=== PATIENT | female | born 1970 | race Caucasian/White ===

== ENCOUNTER 2017-01-30 16:54 | Emergency (ER) | payer OTHER ==
[~2017-01-30] VITALS: Ht 139.7 cm; Wt 54.4 kg
[~2017-01-30 16:54] MED LIST: ALEN70TA47 PO; CIPR500T78 PO; CLON1TAB PO; DIAZ-345 PO; DICL75TA2 PO; DICY10CA59 PO; DULO30CA48 PO; DULO60CA6 PO; HYDR1TAB PO; KETO10TA PO; MECL-124 PO; METR500T PO; NITR-65 PO; ONDA-42 SL; ONDA4TAB8 PO; TRAM-42 PO
--- OUTSIDE RECORDS SUMMARY | 2017-01-30 17:00 | XMS REPORT ---
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
--- OUTSIDE RECORDS SUMMARY | 2017-01-30 17:01 | XMS REPORT ---
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 Problem IBS (irritable bowel syndrome) K58.9 Active Problem Major depressive disorder, recurrent episode, moderate 296.32 Active Assessment Halie rash of groin B37.89 Active Problem Major depressive disorder, recurrent, moderate F33.1 Active Problem Antibiotic long-term use Z79.2 Active Medications Medication Code System Code Instructions Start Date End Date Status Dosage Dicloxacillin Sodium [facility] [address]-90 500 MG Orally 2 times a day Dec 08, 2014 1 capsule after meals Bentyl [facility] [address]-43 10 mg Dec 05, 2013 1 Capsule by Oral route 2 times per day Butenafine HCl [facility] [address]-49 1 % Externally Twice a day Jan 14, 2015 Feb 11, 2015 1 application to affected area Procedures Procedure Coding System Code Date Office Visit, Est Pt., Level 3 CPT-4 94125 Jan 14, 2015 Vital Signs Date/Time: Jan 14, 2015 Temperature 97.9 F Weight 126.4 lbs Height 55 in BMI 29.37 Index Blood Pressure Diastolic 68 mmHg Blood Pressure Systolic 116 mmHg Cardiac Monitoring Heart Rate 72 bpm Results No Known Results Summary Purpose eClinicalWorks Submission
--- OUTSIDE RECORDS SUMMARY | 2017-01-30 17:01 | XMS REPORT ---
Author Author LAWANDA SHAVER [facility] Address [address] [place] [address] Care Team Providers Care Family Educator Name Role Phone LAWANDA SHAVER Unavailable PROBLEMS Type Condition ICD9-CM Code [id number] Code Onset Dates Condition Status SNOMED Code Problem History of nephrectomy Z90.5 Active 313712863 Problem Irritable bowel syndrome without diarrhea K58.9 Active 50050757 Problem Depression F32.9 Active 52938398 Problem Vitamin D deficiency E55.9 Active 53786693 Problem Non-healing skin lesion of nose L98.9 Active 41622536 Problem Neck pain M54.2 Active 38413257 Problem Symptomatic premature menopause E28.310 Active 633662312 Problem Osteopenia M85.80 Active 564148334 Problem Abnormal finding on CT scan R93.8 Active 051303860 Problem Hearing loss, bilateral H91.93 Active 47429595 Problem Major depressive disorder, recurrent, moderate F33.1 Active 539171106 Problem Antibiotic long-term use Z79.2 Active 255507224 Problem IBS (irritable bowel syndrome) K58.9 Active 71466319 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 10358752 Problem Generalized anxiety disorder F41.1 Active 127879108 Problem Arthralgia M25.50 Active 62549519 ALLERGIES Substance Reaction Event Type Date Status Sulfamethoxazole-Trimethoprim Unknown Drug Allergy Mar, Active Percocet Unknown Drug Allergy Mar, Active SOCIAL HISTORY No smoking Hx information available PLAN OF CARE Activity Details Follow Up 6 Months, prn Reason:BH med VITAL SIGNS Height 55 in 2016-03-10 Weight 124 lbs 2016-03-10 Temperature 98.1 degrees Fahrenheit 2016-03-10 Heart Rate 80 bpm 2016-03-10 Respiratory Rate 16 2016-03-10 BMI 28.82 kg/m2 2016-03-10 Blood pressure systolic 120 mmHg 2016-03-10 Blood pressure diastolic 76 mmHg 2016-03-10 MEDICATIONS Medication Instructions Dosage Frequency Start Date End Date Duration Status Bentyl 10 mg oral bid prn 1 Capsule Active Clonazepam 1 MG Orally Once a day at hs prn 1 tablet 28 days Active Diclofenac Sodium CR 75 mg oral two times per day 1 tablet Active Vitamin D 2000 UNIT Orally Once a day 2 tablet 24h Active Fosamax 70 MG Orally weekly 1 tablet Mar, Active Duloxetine HCl 30 MG Orally daily 1 capsule 24h 30 day(s) Active RESULTS Name Result Date Reference Range VITAMIN D, 25-H 2016-03-10 Vitamin D, 25-Hydroxy 50.1 30.0-100.0 CMP 2016-03-10 Glucose, Serum 85 65-99 BUN 16 6-24 Creatinine, Serum 0.66 0.57-1.00 eGFR If NonAfricn Am 108 >59 eGFR If Africn Am 124 >59 BUN/Creatinine Ratio 24 9-23 Sodium, Serum 142 134-144 Potassium, Serum 4.4 3.5-5.2 Chloride, Serum 102 96-106 Carbon Dioxide, Total 25 18-29 Calcium, Serum 8.8 8.7-10.2 Protein, Total, Serum 6.5 6.0-8.5 Albumin, Serum 4.4 3.5-5.5 Globulin, Total 2.1 1.5-4.5 A/G Ratio 2.1 1.1-2.5 Bilirubin, Total 0.4 0.0-1.2 Alkaline Phosphatase, S 70 39-117 AST (SGOT) 25 0-40 ALT (SGPT) 31 0-32 PROCEDURES Procedure Date Ordered Related Diagnosis Body Site COMPREHEN METABOLIC PANEL Mar 10, 2016 ASSAY OF VITAMIN D Mar 10, 2016 VENIPUNCT, ROUTINE* Mar 10, 2016 Office Visit, Est Pt., Level 4 Mar 10, 2016 IMMUNIZATIONS No Known Immunizations
--- OUTSIDE RECORDS SUMMARY | 2017-01-30 17:01 | XMS REPORT ---
Author Author LAWANDA SHAVER [facility] Address [address] [place] [address] Care Team Providers Care Senior Process Engineer Name Role Phone LAWANDA SHAVER Unavailable PROBLEMS Type Condition ICD9-CM Code [id number] Code Onset Dates Condition Status SNOMED Code Problem Arthralgia M25.50 Active 63742687 Problem History of nephrectomy Z90.5 Active 192125689 Problem Neck pain M54.2 Active 80977868 Problem Osteopenia M85.80 Active 966751385 Problem Depression F32.9 Active 77620835 Problem Irritable bowel syndrome without diarrhea K58.9 Active 93664160 Problem Symptomatic premature menopause E28.310 Active 961923032 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 13334951 Problem Abnormal finding on CT scan R93.8 Active 941340323 Problem Antibiotic long-term use Z79.2 Active 704624052 Problem Major depressive disorder, recurrent, moderate F33.1 Active 786274592 Problem Generalized anxiety disorder F41.1 Active 608681519 Problem Hearing loss, bilateral H91.93 Active 10882668 Problem IBS (irritable bowel syndrome) K58.9 Active 13231833 ALLERGIES Unknown Allergies SOCIAL HISTORY No smoking Hx information available PLAN OF CARE VITAL SIGNS MEDICATIONS Medication Instructions Dosage Frequency Start Date End Date Duration Status Clonazepam 1 MG Orally Once a day at hs prn 1 tablet 28 days Active RESULTS No Results PROCEDURES No Known procedures IMMUNIZATIONS No Known Immunizations
--- OUTSIDE RECORDS SUMMARY | 2017-01-30 17:01 | XMS REPORT ---
Author Author LAWANDA SHAVER [facility] Address [address] [place] [address] Care Team Providers Care Dry Cleaning Attendant Name Role Phone LAWANDA SHAVER Unavailable PROBLEMS Type Condition ICD9-CM Code [id number] Code Onset Dates Condition Status SNOMED Code Problem Arthralgia M25.50 Active 27463977 Problem History of nephrectomy Z90.5 Active 914002275 Problem Neck pain M54.2 Active 21718930 Problem Osteopenia M85.80 Active 334402837 Problem Depression F32.9 Active 01098458 Problem Irritable bowel syndrome without diarrhea K58.9 Active 78293557 Problem Symptomatic premature menopause E28.310 Active 386529174 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 74853262 Problem Abnormal finding on CT scan R93.8 Active 928124549 Problem Antibiotic long-term use Z79.2 Active 188040391 Problem Major depressive disorder, recurrent, moderate F33.1 Active 909464022 Assessment Depression F32.9 Oct, Active 630101055 Problem Generalized anxiety disorder F41.1 Active 509316149 Problem Hearing loss, bilateral H91.93 Active 31162619 Problem IBS (irritable bowel syndrome) K58.9 Active 23717035 ALLERGIES Substance Reaction Event Type Date Status Sulfamethoxazole-Trimethoprim Unknown Drug Allergy Oct, Active Percocet Unknown Drug Allergy Oct, Active SOCIAL HISTORY No smoking Hx information available PLAN OF CARE VITAL SIGNS Height 55 in 2015-10-14 Weight 117.5 lbs 2015-10-14 Heart Rate 74 bpm 2015-10-14 Respiratory Rate 18 2015-10-14 BMI 27.31 kg/m2 2015-10-14 Blood pressure systolic 118 mmHg 2015-10-14 Blood pressure diastolic 72 mmHg 2015-10-14 MEDICATIONS Medication Instructions Dosage Frequency Start Date End Date Duration Status Fosamax 70 MG Orally weekly 1 tablet Mar, Active Bentyl 10 mg oral bid prn 1 Capsule Active Diclofenac Sodium CR 75 mg oral two times per day 1 tablet Active Duloxetine HCl 30 MG Orally daily 1 capsule 24h Active Vitamin D 2000 UNIT Orally Once a day 2 tablet 24h Active Clonazepam 1 MG Orally Once a day at hs prn 1 tablet 28 days Active Duloxetine HCl 30 MG Orally daily 1 capsule 24h 30 day(s) Active RESULTS No Results PROCEDURES Procedure Date Ordered Related Diagnosis Body Site Office Visit, Est Pt., Level 4 Oct 14, 2015 IMMUNIZATIONS No Known Immunizations
--- OUTSIDE RECORDS SUMMARY | 2017-01-30 17:01 | XMS REPORT ---
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
--- OUTSIDE RECORDS SUMMARY | 2017-01-30 17:01 | XMS REPORT ---
Author Author LAWANDA SHAVER [facility] eClinicalWorks Address Unknown Phone Unavailable Care Team Providers Care Coffee Attendant Name Role Phone LAWANDA SHAVER CP Unavailable [...] bowel syndrome without diarrhea K58.9 Active Problem Antibiotic long-term use Z79.2 Active Problem Major depressive disorder, recurrent, moderate F33.1 Active Problem Generalized anxiety disorder F41.1 Active Medications No Known Medications Results No Known Results Summary Purpose eClinicalWorks Submission
--- OUTSIDE RECORDS SUMMARY | 2017-01-30 17:01 | XMS REPORT ---
Author LIBERTAD Ramos [facility] eClinicalWorks Address Unknown Phone Unavailable Care Team Providers Care Senior Hr Manager Name Role Phone LIBERTAD OROSCO CP Unavailable Allergies No Known Allergies Problems Problem Type Condition ICD-9 Code Onset Dates Condition Status Problem Unspecified breast screening V76.10 Active Problem Special screening examination, human papillomavirus [HPV] V73.81 Active Problem Screening for malignant neoplasm of the cervix V76.2 Active Problem Gonadal dysgenesis 758.6 Active Problem Routine general medical examination at health care facility V70.0 Active Problem Personal history of, nephrotic syndrome V13.03 Active Problem Abdominal pain, unspecified site 789.00 Active Problem Hormone replacement therapy (postmenopausal) V07.4 Active Problem Generalized anxiety disorder 300.02 Active Problem Major depressive disorder, recurrent episode, moderate 296.32 Active Assessment Unspecified breast screening V76.10 Active Problem Irritable bowel syndrome 564.1 Active Problem Routine gynecological examination V72.31 Active Medications No Known Medications Results No Known Results Summary Purpose eClinicalWorks Submission
--- OUTSIDE RECORDS SUMMARY | 2017-01-30 17:01 | XMS REPORT ---
Author Author LAWANDA SHAVER [facility] eClinicalWorks Address Unknown Phone Unavailable Care Team Providers Care Outsewer Name Role Phone LAWANDA SHAVER CP Unavailable [...] Problem Generalized anxiety disorder F41.1 Active Medications Medication Code System Code Instructions Start Date End Date Status Dosage Duloxetine HCl [facility] 47620840729 30 MG Orally daily 1 capsule Results No Known Results Summary Purpose eClinicalWorks Submission
--- OUTSIDE RECORDS SUMMARY | 2017-01-30 17:01 | XMS REPORT ---
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 Problem Abnormal finding on CT scan R93.8 Active Problem Depression F32.9 Active Problem History of nephrectomy Z90.5 Active Problem Neck pain M54.2 Active Problem Irritable bowel syndrome without diarrhea K58.9 Active Problem Symptomatic premature menopause E28.310 Active Assessment Generalized anxiety disorder F41.1 Active Assessment Depression F32.9 Active Problem Antibiotic long-term use Z79.2 Active Problem Major depressive disorder, recurrent, moderate F33.1 Active Medications No Known Medications Procedures Procedure Coding System Code Date Psych diagnostic evaluation, established patient CPT-4 29512 Feb 04, 2015 Results No Known Results Summary Purpose [employer] Submission
--- OUTSIDE RECORDS SUMMARY | 2017-01-30 17:01 | XMS REPORT ---
Author Author LAWANDA SHAVER [facility] eClinicalWorks Address Unknown Phone Unavailable Care Team Providers Care Diathermy Equipment Repairer Name Role Phone LAWANDA SHAVER Unavailable Allergies, Adverse Reactions, Alerts Substance Reaction Event Type Sulfamethoxazole-Trimethoprim Info Not Available Drug Allergy Percocet Info Not Available Drug Allergy Problems Problem Type Condition Code Onset Dates Condition Status Problem IBS (irritable bowel syndrome) K58.9 Active Problem Neck pain M54.2 Active Problem Arthralgia M25.50 Active Problem Depression F32.9 Active Assessment Arthralgia M25.50 Active 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 Assessment Osteopenia M85.80 Active Assessment Screening breast examination Z12.39 Active Problem Osteopenia M85.80 Active Problem Symptomatic premature menopause E28.310 Active Problem History of nephrectomy Z90.5 Active Problem Abnormal finding on CT scan R93.8 Active Problem Irritable bowel syndrome without diarrhea K58.9 Active Assessment Symptomatic premature menopause E28.310 Active Assessment Irritable bowel syndrome without diarrhea K58.9 Active Assessment Neck pain M54.2 Active Assessment History of nephrectomy Z90.5 Active Assessment Depression F32.9 Active Problem Antibiotic long-term use Z79.2 Active Assessment Abnormal finding on CT scan R93.8 Active Problem Major depressive disorder, recurrent, moderate F33.1 Active Assessment 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 Problem Generalized anxiety disorder F41.1 Active Medications Medication Code System Code Instructions Start Date End Date Status Dosage Vitamin D [facility] [address]-10 2000 UNIT Orally Once a day 2 tablet Fosamax [facility] [address]-51 70 MG Orally weekly Mar 11, 2015 1 tablet Duloxetine HCl [facility] [address]-38 30 MG Orally daily 1 capsule Clonazepam [facility] [address]-11 1 MG Orally Once a day at hs prn Sep 16, 2015 1 tablet Bentyl [facility] [address]-44 10 mg oral bid prn 1 Capsule Diclofenac Sodium CR ND 0 75 mg oral two times per day 1 tablet Duloxetine HCl [facility] 57304653248 30 MG Orally daily 1 capsule Procedures Procedure Coding System Code Date Office Visit, Est Pt., Level 4 CPT-4 76841 Sep 16, 2015 Vital Signs Date/Time: Sep 16, 2015 Cardiac Monitoring Heart Rate 72 bpm Weight 117.8 lbs Height 55 in BMI 27.38 Index Blood Pressure Diastolic 76 mmHg Blood Pressure Systolic 118 mmHg Results No Known Results Summary Purpose eClinicalWorks Submission
--- OUTSIDE RECORDS SUMMARY | 2017-01-30 17:01 | XMS REPORT ---
Author Author LAWANDA SHAVER [facility] eClinicalWorks Address Unknown Phone Unavailable Care Team Providers Care Sales Representative Printing Paper Name Role Phone LAWANDA SHAVER CP Unavailable [...] Instructions Start Date End Date Status Dosage Clonazepam [facility] [address]-02 1 MG Orally Once a day at hs prn 1 tablet Results No Known Results Summary Purpose eClinicalWorks Submission
--- OUTSIDE RECORDS SUMMARY | 2017-01-30 17:01 | XMS REPORT ---
Author Author LAWANDA SHAVER [facility] eClinicalWorks Address Unknown Phone Unavailable Care Team Providers Care It Associate Name Role Phone LAWANDA SHAVER CP Unavailable [...] Instructions Start Date End Date Status Dosage Cholecalciferol [facility] [address]70 UNIT Orally two times per week for 8 weeks Feb 09, 2015 1 capsule Results No Known Results Summary Purpose eClinicalWorks Submission
--- OUTSIDE RECORDS SUMMARY | 2017-01-30 17:02 | XMS REPORT ---
Author Author LAWANDA SHAVER [facility] eClinicalWorks Address Unknown Phone Unavailable Care Team Providers Care Contractor Broomcorn Threshing Name Role Phone LAWANDA SHAVER CP Unavailable [...]
--- OUTSIDE RECORDS SUMMARY | 2017-01-30 17:02 | XMS REPORT ---
Author Author LAWANDA SHAVER [facility] Address [address] [place] [address] Care Team Providers Care Supervisor Fabrication Department Name Role Phone LAWANDA SHAVER Unavailable PROBLEMS Type Condition ICD9-CM Code [id number] Code Onset Dates Condition Status SNOMED Code Problem History of nephrectomy Z90.5 Active 365427839 Problem Irritable bowel syndrome without diarrhea K58.9 Active 07915856 Problem Depression F32.9 Active 96296303 Problem Vitamin D deficiency E55.9 Active 70659509 Problem Non-healing skin lesion of nose L98.9 Active 32870147 Problem Neck pain M54.2 Active 35610845 Problem Symptomatic premature menopause E28.310 Active 144867461 Problem Osteopenia M85.80 Active 066905308 Problem Abnormal finding on CT scan R93.8 Active 608310843 Problem Hearing loss, bilateral H91.93 Active 25842642 Problem Major depressive disorder, recurrent, moderate F33.1 Active 243221010 Problem Antibiotic long-term use Z79.2 Active 786434376 Problem IBS (irritable bowel syndrome) K58.9 Active 20616906 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 60983110 Problem Generalized anxiety disorder F41.1 Active 377930890 Problem Arthralgia M25.50 Active 55955102 ALLERGIES No Information SOCIAL HISTORY Never Assessed PLAN OF CARE VITAL SIGNS MEDICATIONS Medication Instructions Dosage Frequency Start Date End Date Duration Status Clonazepam 1 MG Orally Once a day at hs prn 1 tablet 28 days Active RESULTS No Results PROCEDURES No Known procedures IMMUNIZATIONS No Known Immunizations MEDICAL (GENERAL) HISTORY Type Description Date Medical History Turners syndrome Medical History irritable bowel syndrome Medical History Personal history of, nephrotic syndrome Medical History Hormone replacement therapy (postmenopausal) Medical History noted a 1.6cm nodule in terminal ilieum on ct similar to 12-20- sched for recheck Medical History moderate arthritis LS 2014 Medical History Vitamin D Deficiency Medical History Endoscopy with Dr. Flaherty Surgical History hernia repair, hiatal Surgical History cholecystectomy Surgical History tonsillectomy Surgical History appendectomy Surgical History Kidney surgery, right kidney removed 06/1996 Surgical History Otolaryngologic surgery tubes in ears
--- OUTSIDE RECORDS SUMMARY | 2017-01-30 17:02 | XMS REPORT ---
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 Assessment Depression F32.9 Active Assessment Irritable bowel syndrome without diarrhea K58.9 Active Problem Antibiotic long-term use Z79.2 Active Assessment Abnormal finding on CT scan R93.8 Active Problem Major depressive disorder, recurrent, moderate F33.1 Active Medications Medication Code System Code Instructions Start Date End Date Status Dosage Duloxetine HCl [facility] [address]-81 30 MG Orally daily Feb 04, 2015 1 capsule Bentyl [facility] [address]-40 10 mg oral bid prn Dec 05, 2013 1 Capsule Procedures Procedure Coding System Code Date ASSAY OF VITAMIN D CPT-4 18917 Feb 04, 2015 ASSAY THYROID STIM HORMONE CPT-4 10158 Feb 04, 2015 COMPREHEN METABOLIC PANEL CPT-4 59647 Feb 04, 2015 Office Visit, Est Pt., Level 5 CPT-4 99612 Feb 04, 2015 ANTINUCLEAR ANTIBODIES CPT-4 63915 Feb 04, 2015 VENIPUNCT, ROUTINE* CPT-4 86834 Feb 04, 2015 RHEUMATOID FACTOR, QUANT CPT-4 22257 Feb 04, 2015 X-RAY EXAM OF NECK SPINE CPT-4 69105 Feb 04, 2015 C-REACTIVE PROTEIN CPT-4 54736 Feb 04, 2015 RBC SED RATE, NONAUTOMATED CPT-4 94133 Feb 04, 2015 Vital Signs Date/Time: Feb 04, 2015 Temperature 98.6 F Weight 125.6 lbs Height 55 in BMI 29.19 Index Blood Pressure Diastolic 72 mmHg Blood Pressure Systolic 120 mmHg Cardiac Monitoring Heart Rate 72 bpm Results Name Result Date Reference Range Unit Abnormality Flag ROUTINE VENIPUNCTURE Summary Purpose eClinicalWorks Submission
--- OUTSIDE RECORDS SUMMARY | 2017-01-30 17:02 | XMS REPORT | Continuity of Care Document ---
Author Author [facility] Address Unknown Phone Unavailable Allergies Active Description Code Type Severity Reaction Onset Reported/Identified Relationship to Patient Clinical Status Yes acetaminophen [id number] Drug Allergy Mild N/V 11/05/2012 Yes oxycodone HCl [id number] Drug Allergy Mild N/V 11/05/2012 Yes Sulfa (Sulfonamide Antibiotics) [id number] Drug Allergy Mild RASH 2012 Medications There is no data. Problems Date Dx Coded Attending Type Code Diagnosis Diagnosed By 04/14/2010 054.9 HERPES SIMPLEX WITHOUT COMPLICATION 04/14/2010 LIBERTAD OROSCO DO 054.9 HERPES SIMPLEX WITHOUT COMPLICATION 04/14/2010 CANDELARIO ARGUETA APRN R 054.9 HERPES SIMPLEX WITHOUT COMPLICATION 04/14/2010 ARTHUR ARGUETA APRNINA R 054.9 HERPES SIMPLEX WITHOUT COMPLICATION 04/14/2010 ARTHUR ARGUETA APRNINA R 054.9 HERPES SIMPLEX WITHOUT COMPLICATION 04/14/2010 LIBERTAD OROSCO DO 054.9 HERPES SIMPLEX WITHOUT COMPLICATION 04/17/2010 684 IMPETIGO 04/17/2010 LIBERTAD OROSCO DO 684 IMPETIGO 04/17/2010 ARTHUR ARGUETA APRNINA R 684 IMPETIGO 04/17/2010 ARTHUR ARGUETA APRNINA R 684 IMPETIGO 04/17/2010 ARTHUR ARGUETA APRNINA R 684 IMPETIGO 04/17/2010 LIBERTAD OROSCO DO 684 IMPETIGO 05/23/2012 296.32 MO DEPRESSIVE RECURRENT MODERATE 05/23/2012 300.02 AN GEN ANXIETY 05/23/2012 LIBERTAD OROSCO DO 296.32 MO DEPRESSIVE RECURRENT MODERATE 05/23/2012 LIBERTAD OROSCO DO 300.02 AN GEN ANXIETY 05/23/2012 ARTHUR ARGUETA APRNINA R 296.32 MO DEPRESSIVE RECURRENT MODERATE 05/23/2012 CANDELARIO ARGUETA APRN R 300.02 AN GEN ANXIETY 05/23/2012 CANDELARIO ARGUETA APRN R 296.32 MO DEPRESSIVE RECURRENT MODERATE 05/23/2012 ARTHUR ARGUETA APRNINA R 300.02 AN GEN ANXIETY 05/23/2012 CANDELARIO ARGUETA APRN R 296.32 MO DEPRESSIVE RECURRENT MODERATE 05/23/2012 ARTHUR ARGUETA APRNINA R 300.02 AN GEN ANXIETY 05/23/2012 LIBERTAD OROSCO DO K 296.32 MO DEPRESSIVE RECURRENT MODERATE 05/23/2012 DEBI OROSCO DOA K 300.02 AN GEN ANXIETY 09/21/2012 ANA LUISA ARANGOLIBERTAD K 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 09/21/2012 ANA LUISA ARANGODEBIA K V13.03 PERSONAL HISTORY OF NEPHROTIC SYNDROME 09/21/2012 OROSCO DEBIA K V70.0 EXAM - ROUTINE H&P 09/21/2012 CANDELARIO ARGUETA APRN R 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 09/21/2012 CANDELARIO ARGUETA APRN R V13.03 PERSONAL HISTORY OF NEPHROTIC SYNDROME 09/21/2012 CANDELARIO ARGUETA APRN R V70.0 EXAM - ROUTINE H&P 09/21/2012 CANDELARIO ARGUETA APRN R 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 09/21/2012 ARTHUR ARGUETA APRNINA R V13.03 PERSONAL HISTORY OF NEPHROTIC SYNDROME 09/21/2012 ARTHUR ARGUETA APRNINA R V70.0 EXAM - ROUTINE H&P 09/21/2012 CANDELARIO ARGUETA APRN R 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 09/21/2012 ARTHUR ARGUETA APRNINA R V13.03 PERSONAL HISTORY OF NEPHROTIC SYNDROME 09/21/2012 ARTHUR ARGUETA APRNINA R V70.0 EXAM - ROUTINE H&P 09/21/2012 LIBERTAD OROSCO DO K 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04 ABDOMINAL PAIN, LEFT LOWER QUADRANT 10/30/2013 ELLIE BILLET BED OPERATOR, CANDELARIO R 789.00 ABDOMINAL PAIN UNSPECIFIED SITE 10/30/2013 ELLIE BILLET BED OPERATOR, CANDELARIO R 789.00 ABDOMINAL PAIN UNSPECIFIED SITE 10/30/2013 ELLIE CALDWELL, CANDELARIO R 789.00 ABDOMINAL PAIN UNSPECIFIED SITE 10/30/2013 LIBERTAD OROSCO DO K 789.00 ABDOMINAL PAIN UNSPECIFIED SITE 12/05/2013 ELLIE CALDWELL, CANDELARIO R 564.1 IRRITABLE BOWEL SYNDROME 12/05/2013 ARTHUR ARGUETA APRNINA R 564.1 IRRITABLE BOWEL SYNDROME 12/05/2013 LIBERTAD OROSCO DO 564.1 IRRITABLE BOWEL SYNDROME 12/22/2013 STACY CERRATO BILLET BED OPERATOR Ot 558.9 NONINF GASTROENTERIT NEC 12/22/2013 STACY CERRATO BILLET BED OPERATOR Ot 789.04 ABDOMINAL PAIN, LEFT LOWER QUADRANT 01/28/2014 OPAL DAVIS MD Ot 455.0 INT HEMORRHOID W/O COMPL 01/28/2014 OPAL DAVIS MD Ot 455.3 EXT HEMORRHOID W/O COMPL 01/28/2014 OPAL DAVIS MD Ot 787.99 OTHER GI SYSTEM SYMPTOMS 03/04/2014 LIBERTAD OROSCO DO V07.4 HORMONE REPLACEMENT THERAPY (POSTMENOPAUSAL) 03/04/2014 LIBERTAD OROSCO DO V72.31 FIRST DYER EXAM, ROUTINE 03/04/2014 LIBERTAD OROSCO DO V72.62 LAB SCREENING- GENERAL PHYSICAL 03/04/2014 LIBERTAD OROSCO DO V73.81 HPV SCREENING 03/04/2014 LIBERTAD OROSCO DO V76.10 BREAST CANCER SCREENING 03/04/2014 LIBERTAD OROSCO DO V76.2 CERVICAL CANCER SCREENING (PAP SMEAR) 10/31/2014 LIBERTAD OROSCO DO Ot V76.12 12/26/2014 OPAL DAVIS MD Ot V72.84 12/26/2014 LIBERTAD OROSCO DO Ot V76.12 12/26/2014 ANNITA SPENCER DO Ot K43.9 VENTRAL HERNIA WITHOUT OBSTRUCTION OR GA 12/26/2014 ANNITA SPENCER DO Ot R10.32 LEFT LOWER QUADRANT PAIN 12/26/2014 ANNITA SPENCER DO Ot R93.5 ABN FINDINGS ON DX IMAGING OF ABD REGION 12/26/2014 ANNITA SPENCER DO Ot Z90.49 ACQUIRED ABSENCE OF OTHER SPECIFIED PART 12/26/2014 ANNITA SPENCER DO Ot Z90.5 ACQUIRED ABSENCE OF KIDNEY 03/11/2015 Ot E28.310 03/11/2015 Ot M85.80 03/11/2015 Ot Q96.9 03/27/2015 Ot E28.310 03/27/2015 Ot M85.80 03/27/2015 Ot Q96.9 04/01/2015 Ot E28.310 04/01/2015 Ot M85.80 04/01/2015 Ot Q96.9 06/20/2015 TUCKER GRANADOS, GALILEO Velasquez Ot K57.90 DVRTCLOS OF INTEST, PART UNSP, W/O PERF 06/20/2015 GALILEO CEBALLOS MD Ot R10.32 LEFT LOWER QUADRANT PAIN 06/20/2015 TUCKER GRANADOS, GALILEO Velasquez Ot Z90.5 ACQUIRED ABSENCE OF KIDNEY 06/22/2015 TUCKER GRANADOS, GALILEO Velasquez Ot K57.90 DVRTCLOS OF INTEST, PART UNSP, W/O PERF 06/22/2015 GALILEO CEBALLOS MD Ot R10.32 LEFT LOWER QUADRANT PAIN 06/22/2015 TUCKER GRANADOS, GALILEO Velasquez Ot Z90.5 ACQUIRED ABSENCE OF KIDNEY 07/17/2015 GALILEO CEBALLOS MD Ot K57.90 DVRTCLOS OF INTEST, PART UNSP, W/O PERF 07/17/2015 TUCKER GRANADOS, GALILEO Velasquez Ot R10.32 LEFT LOWER QUADRANT PAIN 07/17/2015 TUCKER GRANADOS, GALILEO Velasquez Ot Z90.5 ACQUIRED ABSENCE OF KIDNEY 10/27/[address] SUPERVISOR Ot Z12.31 ENCNTR SCREEN MAMMOGRAM FOR MALIGNANT NE 11/13/[address] SUPERVISOR Ot Z12.31 ENCNTR SCREEN MAMMOGRAM FOR MALIGNANT NE 12/09/2016 OPAL DAVIS MD Ot V72.84 EXAM PRE-OPERATIVE NOS 12/09/2016 OROSCO DO, LIBERTAD K Ot V76.12 OTH SCREEN MAMMO-MALIGN NEOPLASM OF JORDAN 12/09/2016 Ot E28.310 SYMPTOMATIC PREMATURE MENOPAUSE 12/09/2016 Ot M85.80 OTH DISRD OF BONE DENSITY AND STRUCTURE, 12/09/2016 Ot 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, UNSPECIFIED 12/09/[address] OF [address] SUPERVISOR Ot Z12.31 ENCNTR SCREEN MAMMOGRAM FOR MALIGNANT NE 12/09/2016 JOHANNA DOURMILAA K Ot F32.9 MAJOR DEPRESSIVE DISORDER, SINGLE EPISOD 12/09/2016 JOHANNA DO, ANNITA K Ot F41.9 ANXIETY DISORDER, UNSPECIFIED 12/09/2016 JOHANNA DO, ANNITA K Ot N39.0 URINARY TRACT INFECTION, SITE NOT SPECIF 12/09/2016 JOHANNA DO, ANNITA K Ot R11.0 NAUSEA 12/09/2016 JOHANNA DO ANNITA K Ot Z87.19 PERSONAL HISTORY OF OTHER DISEASES OF TH 12/09/2016 JOHANNAURMILA Mathew DOA K Ot Z87.442 PERSONAL HISTORY OF URINARY CALCULI 12/09/2016 JOHANNA DO ANNITA K Ot Z90.49 ACQUIRED ABSENCE OF OTHER SPECIFIED PART 12/09/2016 JOHANNA DO, ANNITA K Ot Z90.5 ACQUIRED ABSENCE OF KIDNEY 12/09/2016 JOHANNA DO, ANNITA K Ot Z90.89 ACQUIRED ABSENCE OF OTHER ORGANS 12/09/2016 RYAN GRANADOS, OPAL Ot V72.84 EXAM PRE-OPERATIVE NOS 12/09/2016 OROSCO LIBERTAD ARANGO Iveth Ot V76.12 OTH SCREEN MAMMO-MALIGN NEOPLASM OF JORDAN 12/09/2016 Ot E28.310 SYMPTOMATIC PREMATURE MENOPAUSE 12/09/2016 Ot M85.80 OTH DISRD OF BONE DENSITY AND STRUCTURE, 12/09/2016 Ot 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, UNSPECIFIED 12/09/[address] OF [address] SUPERVISOR Ot Z12.31 ENCNTR SCREEN MAMMOGRAM FOR MALIGNANT NE 12/12/2016 JOHANNA DO, ANNITA K Ot F32.9 MAJOR DEPRESSIVE DISORDER, SINGLE EPISOD 12/12/2016 JOHANNA DO, ANNITA K Ot F41.9 ANXIETY DISORDER, UNSPECIFIED 12/12/2016 JOHANNA DO, ANNITA K Ot N39.0 URINARY TRACT INFECTION, SITE NOT SPECIF 12/12/2016 JOHANNA DO, ANNITA K Ot R11.0 NAUSEA 12/12/2016 ANNITA SPENCER DO Ot Z87.19 PERSONAL HISTORY OF OTHER DISEASES OF TH 12/12/2016 ANNITA SPENCER DO Ot Z87.442 PERSONAL HISTORY OF URINARY CALCULI 12/12/2016 ANNITA SPENCER DO Ot Z90.49 ACQUIRED ABSENCE OF OTHER SPECIFIED PART 12/12/2016 ANNITA SPENCER DO Ot Z90.5 ACQUIRED ABSENCE OF KIDNEY 12/12/2016 ANNITA SPENCER DO Ot Z90.89 ACQUIRED ABSENCE OF OTHER ORGANS 12/27/2016 OPAL DAVIS MD Ot V72.84 EXAM PRE-OPERATIVE NOS 12/27/2016 LIBERTAD OROSCO DO Ot V76.12 OTH SCREEN MAMMO-MALIGN NEOPLASM OF JORDAN 12/27/2016 Ot E28.310 SYMPTOMATIC PREMATURE MENOPAUSE 12/27/2016 Ot M85.80 OTH DISRD OF BONE DENSITY AND STRUCTURE, 12/27/2016 Ot 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, UNSPECIFIED 12/27/2016 LAWANDA SHAVER Ot Z12.31 ENCNTR SCREEN MAMMOGRAM FOR MALIGNANT NE Procedures Code Description [place] [address] ROUTINE VENIPUNCTURE 09/21/2012 79351 CBC 09/21/2012 30141 LIPID PANEL 09/21/2012 10016 CMP 09/21/2012 2514389 GFR CALC (RESULT ONLY) 09/21/2012 30728 TSH 09/21/2012 29983 T4 FREE 09/21/2012 Results Test Result Range Complete urinalysis with reflex to culture - 12/09/16 04:54 Urine color determination YELLOW NRG Urine clarity determination CLEAR NRG Urine pH measurement by test strip 6 5-9 Specific gravity of urine by test strip 1.020 1.016- 1.022 Urine protein assay by test strip, semi-quantitative NEGATIVE NEGATIVE Urine glucose detection by automated test strip NEGATIVE NEGATIVE Erythrocytes detection in urine sediment by light microscopy NEGATIVE NEGATIVE Urine ketones detection by automated test strip NEGATIVE NEGATIVE Urine nitrite detection by test strip NEGATIVE NEGATIVE Urine total bilirubin detection by test strip NEGATIVE NEGATIVE Urine urobilinogen measurement by automated test strip (mass/volume) NORMAL NORMAL Urine leukocyte esterase detection by dipstick 2+ NEGATIVE Automated urine sediment erythrocyte count by microscopy (number/high power field) NONE NRG Automated urine sediment leukocyte count by microscopy (number/high power field ) [HPF] NRG Bacteria detection in urine sediment by light microscopy NEGATIVE NRG Squamous epithelial cells detection in urine sediment by light microscopy 10-25 NRG Crystals detection in urine sediment by light microscopy NONE NRG Casts detection in urine sediment by light microscopy NONE NRG Mucus detection in urine sediment by light microscopy SMALL NRG Complete urinalysis with reflex to culture NO NRG Complete blood count (CBC) with automated white blood cell (WBC) differential - 12/09/16 05:00 Blood leukocytes automated count (number/volume) 10.3 10*3/uL 4.3-11.0 Blood erythrocytes automated count (number/volume) 4.76 10*6/uL 4.35-5.85 Venous blood hemoglobin measurement (mass/volume) 14.7 g/dL 11.5-16.0 Blood hematocrit (volume fraction) 42 % 35-52 Automated erythrocyte mean corpuscular volume 87 [foz_us] 80-99 Automated erythrocyte mean corpuscular hemoglobin (mass per erythrocyte) 31 pg 25-34 Automated erythrocyte mean corpuscular hemoglobin concentration measurement ( mass/volume) 35 g/dL 32-36 Automated erythrocyte distribution width ratio 12.5 % 10.0-14.5 Automated blood platelet count (count/volume) 197 10*3/uL 130-400 Automated blood platelet mean volume measurement 10.0 [foz_us] 7.4-10.4 Automated blood neutrophils/100 leukocytes 89 % 42-75 Automated blood lymphocytes/100 leukocytes 7 % 12-44 Blood monocytes/100 leukocytes 3 % 0-12 Automated blood eosinophils/100 leukocytes 0 % 0-10 Automated blood basophils/100 leukocytes 0 % 0-10 Blood neutrophils automated count (number/volume) 9.2 10*3 1.8-7.8 Blood lymphocytes automated count (number/volume) 0.7 10*3 1.0-4.0 Blood monocytes automated count (number/volume) 0.4 10*3 0.0-1.0 Automated eosinophil count 0.0 10*3/uL 0.0-0.3 Automated blood basophil count (count/volume) 0.0 10*3/uL 0.0-0.1 Comprehensive metabolic panel - 12/09/16 05:00 Serum or plasma sodium measurement (moles/volume) 141 mmol/L 135-145 Serum or plasma potassium measurement (moles/volume) 4.1 mmol/L 3.6-5.0 Serum or plasma chloride measurement (moles/volume) 105 mmol/L 98-107 Carbon dioxide 23 mmol/L 21-32 Serum or plasma anion gap determination (moles/volume) 13 mmol/L 5-14 Serum or plasma urea nitrogen measurement (mass/volume) 18 mg/dL 7-18 Serum or plasma creatinine measurement (mass/volume) 0.76 mg/dL 0.60-1.30 Serum or plasma urea nitrogen/creatinine mass ratio 24 NRG Serum or plasma creatinine measurement with calculation of estimated glomerular filtration rate > NRG Serum or plasma glucose measurement (mass/volume) 123 mg/dL 70-105 Serum or plasma calcium measurement (mass/volume) 9.9 mg/dL 8.5-10.1 Serum or plasma total bilirubin measurement (mass/volume) 0.5 mg/dL 0.1-1.0 Serum or plasma alkaline phosphatase measurement (enzymatic activity/volume) 76 U/L 40-136 Serum or plasma aspartate aminotransferase measurement (enzymatic activity/ volume) 21 U/L 5-34 Serum or plasma alanine aminotransferase measurement (enzymatic activity/volume ) 40 U/L 0-55 Serum or plasma protein measurement (mass/volume) 7.1 g/dL 6.4-8.2 Serum or plasma albumin measurement (mass/volume) 4.3 g/dL 3.2-4.5 Serum or plasma amylase measurement (enzymatic activity/volume) - 12/09/16 05: 00 Serum or plasma amylase measurement (enzymatic activity/volume) 120 U/L 25-125 Lipase - 12/09/16 05:00 Lipase 32 U/L 8-78 Encounters ACCT No. Visit Date/Time Discharge Status Pt. Type Provider Facility Loc./Unit Complaint [id number] 03/05/2014 08:11:00 03/05/2014 23:59:59 CLS Outpatient LIBERTAD OROSCO DO [id number] 01/07/2014 10:03:00 01/07/2014 23:59:59 CLS Outpatient CANDELARIO ARGUETA APRN [id number] 12/05/2013 09:07:00 12/05/2013 23:59:59 CLS Outpatient CANDELARIO ARGUETA APRN [id number] 10/30/2013 13:49:00 10/30/2013 23:59:59 CLS Outpatient CANDELARIO ARGUETA APRN [id number] 09/21/2012 10:50:00 09/21/2012 23:59:59 CLS Outpatient LIBERTAD OROSCO DO [id number] 05/23/2012 10:43:00 Document Registration [id number] 12/09/2016 04:37:00 12/09/2016 07:37:00 DIS Emergency JOHANNAANNITA Mathew DO [facility] ER LEFT SIDE PAIN,NAUSEA [id number] 10/26/2015 07:07:00 10/26/2015 23:59:59 CLS Outpatient LAWANDA SHAVER RIGHT OF WAY SUPERVISOR [facility] RAD SCREENING [id number] 06/20/2015 08:24:00 06/20/2015 11:01:00 DIS Emergency GALILEO CEBALLOS MD [facility] ER NAUSEA,VOMITING,L SIDE PAIN [id number] 12/26/2014 02:35:00 12/26/2014 05:29:00 DIS Emergency ANNITA SPENCER DO [facility] ER LEFT SIDE HURTS [id number] 10/22/2014 10:14:00 10/22/2014 23:59:59 CLS Outpatient LIBERTAD OROSCO DO [facility] RAD SCREENING [id number] 01/28/2014 09:12:00 01/28/2014 12:30:00 DIS Outpatient OPAL DAVIS MD [facility] SDC ABD PAIN [id number] 01/24/2014 05:50:00 01/24/2014 23:59:59 CLS Outpatient OPAL DAVIS MD [facility] PREOP ABD PAIN [id number] 12/22/2013 11:15:00 12/22/2013 13:14:00 DIS Emergency STACY CERRATO APRN [facility] ER PAIN IN LOWER ABD ON L SIDE [id number] 10/29/2013 09:38:00 10/29/2013 11:54:00 DIS Emergency KIMBERLY WHITEHEAD MD [facility] ER LEFT SIDE PAIN/ CRAMPING [id number] 09/19/2013 10:40:00 09/19/2013 12:30:00 DIS Emergency SEVERO LAN DO [facility] ER DIZZINESS [id number] 04/03/2013 16:17:00 04/03/2013 19:12:00 DIS Emergency ANNITA SPENCER DO [facility] ER N/V/D [id number] 11/05/2012 16:53:00 11/05/2012 20:19:00 DIS Emergency KIMBERLY WHITEHEAD MD [facility] ER [id number] 02/26/2015 10:36:00 Document Registration
[2017-01-30] MEDS ORDERED: NS IV 500 ML 500 ML IV ONE (17:18)
[2017-01-30] MEDS ORDERED: ONDANSETRON 4 MG/2 ML (SDV) Z0FRAN IVP ONE (17:30)
--- NOTE | 2017-01-30 17:32 | ED GI ---
General Chief Complaint: Abdominal/GI Problems Stated Complaint: DIARRHEA,VOMITING,COUGH Nursing Triage Note: ARRIVED VIA AMB TO ROOM 09. COMPLAINS OF N/V/D TODAY. Sepsis Screen: No Definite Risk Source of Information: Patient Exam Limitations: No Limitations (CARA HUGHES) History of Present Illness Time Seen By Provider: 17:16 Initial Comments Patient resents to ER by private conveyance with chief complaint of for the past week she's been having nasal congestion cough malaise fatigue which she was nursing on her own but then this morning she woke observed having nausea with nonbloody vomiting and diarrhea with nonbloody diarrhea. She is not having any abdominal pain just some fleeting crampy pain right around the time she has to have a bowel movement. She is not taking anything for it yet. She does not have a history of your double bowel or inflammatory bowel disease. She's had no fevers or she says she has felt some chills and time. She is not taking Tylenol or Motrin at this time. 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 She's also had a kidney removed after what sounds like a obstructive process. She is also had an umbilical hernia repair. (CARA HUGHES) Allergies and Home Medications Allergies Coded Allergies: Sulfa (Sulfonamide Antibiotics) (Verified Allergy, Mild, RASH, 11/05/12) acetaminophen (Verified Adverse Reaction, Mild, N/V, 11/05/12) oxycodone HCl (Verified Adverse Reaction, Mild, N/V, 11/05/12) Home Medications Alendronate Sodium 70 Mg Tablet, 70 MG PO WEEK, (Reported) Clonazepam 1 Mg Tablet, 1 MG PO HS, (Reported) Diclofenac Sodium 75 Mg Tablet.dr, 75 MG PO BID, (Reported) Duloxetine HCl 30 Mg Capsule.dr, 30 MG PO DAILY, (Reported) Nitrofurantoin Monohyd/M-Cryst 100 Mg Capsule, 100 MG PO BID, #20 Prescribed by: ANNITA SPENCER on 12/09/16 0648 Ondansetron 4 Mg Tab.rapdis, 4 MG PO Q6H PRN for NAUSEA/VOMITING, #8 Ref 0 Prescribed by: CARA HUGHES on 01/30/17 1735 Tramadol HCl 50 Mg Tablet, 50 MG PO Q4H, #20 Prescribed by: ANNITA SPENCER on 12/09/16 0648 Review of Systems Constitutional: chills, No fever, malaise EENTM: No Double Vision, No Eye Pain Respiratory: See HPI, Cough, Denies Shortness of Air, Denies Wheezing Cardiovascular: Denies Chest Pain, Denies Palpitations Gastrointestinal: See HPI, Denies Abdomen Distended, Denies Abdominal Pain, Denies Blood Streaked Stools, Denies Constipated, Diarrhea, Nausea, Poor Appetite, Poor Fluid Intake, Vomiting Genitourinary: Denies Burning, Denies Discharge Musculoskeletal: No back pain, No joint pain Skin: No pruritus, No rash (CARA HUGHES) Past Krsapii-Rdcuxq-Dshkgl Hx Patient Social History Alcohol Use: Occasionally Uses Recreational Drug Use: No Smoking Status: Never a Smoker Recent Foreign Travel: No Contact w/Someone Who Travel: No Recent Infectious Disease Expo: No Recent Hopitalizations: No (CARA HUGHES) Immunizations Up To Date Date of Influenza Vaccine: Nov 06, 2016 (CARA HUGHES) Seasonal Allergies Seasonal Allergies: No (CARA HUGHES) Surgeries History of Surgeries: Yes (RIGHT NEPHRECTOMY--" KIDNEY", VENTRAL HERNIA REPAIR, BMT'S, ) Surgeries: Abdominal, Adenoidectomy, Appendectomy, Ear Surgery, Gallbladder, Nephrectomy, Tonsillectomy (CARA HUGHES) Respiratory History of Respiratory Disorde: No (CARA HUGHES) Cardiovascular History of Cardiac Disorders: No (CARA HUGHES) Neurological History of Neurological Disord: No (CARA HUGHES) Reproductive System Hx Reproductive Disorders: Yes (NICHOLS'S SYNDROME) (CARA HUGHES) Genitourinary History of Genitourinary Disor: Yes (S/P RIGHT NEPHRECTOMY FOR NON-FUNCTIONING KIDNEY) Genitourinary Disorders: Kidney Infection, Bladder Infection, Kidney Stones, Polycystic Kidney Disease (CARA HUGHES) Gastrointestinal History of Gastrointestinal Di: Yes (HERNIA REPAIR, HEPATITIS A) Gastrointestinal Disorders: Abdominal Hernia, Colitis, Hepatitis, Gall Bladder Disease, Irritable Bowel (CARA HUGHES) Musculoskeletal History of Musculoskeletal Dis: Yes Musculoskeletal Disorders: Arthritis (CARA HUGHES) Endocrine History of Endocrine Disorders: Yes (NICHOLS'S SYNDROME) (CARA HUGHES) HEENT History of HEENT Disorders: Yes HEENT Disorders: Chronic Ear Infection, Tonsilitis Hearing Impairment: Hard of Hearing (CARA HUGHES) Cancer History of Cancer: No (CARA HUGHES) Psychosocial History of Psychiatric Problem: Yes Behavioral Health Disorders: Anxiety, Depression (CARA HUGHES) Integumentary History of Skin or Integumenta: No (CARA HUGHES) Blood Transfusions History of Blood Disorders: No (CARA HUGHES) Physical Exam Vital Signs VS - Last 72 Hours, by Label 01/30/17 17:02 Temp 99.5 Pulse 83 Resp 18 B/P (MAP) 110/77 (88) Pulse Ox 96 (ROSAMARIA CALIXTO MD) Vital Signs Capillary Refill : Less Than 3 Seconds (CARA HUGHES) General Appearance: WD/WN, mild distress HEENT: PERRL/EOMI, normal ENT inspection, pharynx normal Neck: non-tender, normal inspection Respiratory: chest non-tender, lungs clear, normal breath sounds, no respiratory distress, no accessory muscle use Cardiovascular: normal peripheral pulses, regular rate, rhythm, no edema Gastrointestinal: normal bowel sounds, soft, no organomegaly, tenderness (mild , diffusely but no Ron sign and negative for tenderness or rebound tenderness over McBurney's point.) Extremities: normal inspection, no pedal edema, normal capillary refill Neurologic/Psychiatric: alert, oriented x 3 (CARA HUGHES) Progress/Results/Core Measures Results/Orders Lab Results Laboratory Tests Test 01/30/17 17:30 Range/Units White Blood Count 14.6 H 4.3-11.0 10^3/uL Red Blood Count 4.99 4.35-5.85 10^6/uL Hemoglobin 15.2 11.5-16.0 G/DL Hematocrit 44 35-52 % Mean Corpuscular Volume 88 80-99 FL Mean Corpuscular Hemoglobin 31 25-34 PG Mean Corpuscular Hemoglobin Concent 35 32-36 G/DL Red Cell Distribution Width 12.5 10.0-14.5 % Platelet Count 208 130-400 10^3/uL Mean Platelet Volume 9.9 7.4-10.4 FL Neutrophils (%) (Auto) 90 H 42-75 % Lymphocytes (%) (Auto) 4 L 12-44 % Monocytes (%) (Auto) 6 0-12 % Eosinophils (%) (Auto) 1 0-10 % Basophils (%) (Auto) 0 0-10 % Neutrophils # (Auto) 13.0 H 1.8-7.8 X 10^3 Lymphocytes # (Auto) 0.6 L 1.0-4.0 X 10^3 Monocytes # (Auto) 0.9 0.0-1.0 X 10^3 Eosinophils # (Auto) 0.1 0.0-0.3 10^3/uL Basophils # (Auto) 0.0 0.0-0.1 10^3/uL Neutrophils % (Manual) 90 % Lymphocytes % (Manual) 0 % Monocytes % (Manual) 2 % Eosinophils % (Manual) 0 % Basophils % (Manual) 0 % Band Neutrophils 3 % Reactive Lymphocytes 5 % Blood Morphology Comment NORMAL Sodium Level 142 135-145 MMOL/L Potassium Level 4.4 3.6-5.0 MMOL/L Chloride Level 103 98-107 MMOL/L Carbon Dioxide Level 25 21-32 MMOL/L Anion Gap 14 5-14 MMOL/L Blood Urea Nitrogen 20 H 7-18 MG/DL Creatinine 0.78 0.60-1.30 MG/DL Estimat Glomerular Filtration Rate > 60 BUN/Creatinine Ratio 26 Glucose Level 131 H 70-105 MG/DL Calcium Level 9.5 8.5-10.1 MG/DL Magnesium Level 1.5 L 1.8-2.4 MG/DL Total Bilirubin 0.5 0.1-1.0 MG/DL Aspartate Amino Transf (AST/SGOT) 19 5-34 U/L Alanine Aminotransferase (ALT/SGPT) 49 0-55 U/L Alkaline Phosphatase 87 40-136 U/L C-Reactive Protein High Sensitivity 0.96 H 0.00-0.50 MG/DL Total Protein 7.1 6.4-8.2 GM/DL Albumin 4.2 3.2-4.5 GM/DL (ROSAMARIA CALIXTO MD) My Orders Orders - ROSAMARIA CALIXTO MD Iohexol Injection (Omnipaque 350 Mg/Ml 1 (01/30/17 18:45) Ns (Ivpb) (Sodium Chloride 0.9% Ivpb Bag (01/30/17 18:45) Rx-Ondansetron Po (Rx-Zofran Po) (01/30/17 20:08) Rx-Hyoscyamine Tab (Rx-Levsin Sl) (01/30/17 20:08) (ROSAMARIA CALIXTO MD) Medications Given in ED Current Medications Medications Dose Ordered Sig/Nestor Route Start Time Stop Time Status Last Admin Dose Admin Fentanyl Citrate 50 mcg ONCE ONCE IVP 01/30/17 18:15 01/30/17 18:16 DC 01/30/17 18:52 50 MCG Ondansetron HCl 4 mg ONCE ONCE IVP 01/30/17 17:30 01/30/17 17:31 DC 01/30/17 17:33 4 MG Sodium Chloride 500 ml @ 0 mls/hr Q0M ONCE IV 01/30/17 17:18 01/30/17 17:21 DC 01/30/17 17:33 500 MLS/HR (ROSAMARIA CALIXTO MD) Vital Signs/I&O Vital Sign - Last 12Hours 01/30/17 17:02 Temp 99.5 Pulse 83 Resp 18 B/P (MAP) 110/77 (88) Pulse Ox 96 (ROSAMARIA CALIXTO MD) Blood Pressure Mean: 88 Progress Note #1: Time: 17:33 Progress Note By history and examination the patient seems to have viral gastroenteritis however given her age be hernandez to make sure there is not any other pathology by checking a CBC, CRP, CMP and an abdominal x-ray to look for any obvious transition points. Progress Note #2: Time: 18:10 Progress Note Discussed the potential finding on x-ray along with a mild white count of 14, 000 with patient and she is now having some pain however nausea is better after the Zofran so give her some pain medicine go ahead and perform a CT scan with contrast of the abdomen and pelvis area and I will discuss the case with Dr. Sanz and the plan is to follow the CT scan results and treat appropriately for viral versus potential bacterial abscess abdominal pathology such as colitis, diverticulitis etc. (CARA HUGHES) Progress Note : Time: 20:13 Progress Note Symptoms were well controlled by therapies provided by Dr. Hughes. Patient was tolerating oral water prior to dismissal. CT showed no evidence of surgical problem or problems requiring admission. Patient was dismissed with take-home packets for Zofran and Levsin. Patient was dismissed with instructions as provided by Dr. Hughes. (ROSAMARIA CALIXTO MD) Diagnostic Imaging Diagonstic Imaging: Xray Plain Films/CT/US/NM/MRI: abdomen (KUB) Comments No air-fluid levels or clear transition point. Bowels do not seem distended. Unremarkable KUB. Surgical clips incidental to previous surgeries noted. Reviewed: Reviewed by Me Diagonstic Imaging: CT (c/c) Plain Films/CT/US/NM/MRI: abdomen, pelvis Reviewed: Reviewed by Me (CARA HUGHSE) Comments CT viewed by me and report reviewed. See report below: NAME: DOV LOCKHART [facility] REC#: [id number] PT STATUS: REG ER : 1970 PHYSICIAN: CARA HUGHES MD ADMIT DATE: 01/30/17/ER Signed Date of Exam: 01/30/17 CT ABDOMEN/PELVIS W PROCEDURE: CT abdomen and pelvis with contrast. TECHNIQUE: Multiple contiguous axial images were obtained through the abdomen and pelvis after administration of intravenous contrast. INDICATION: Generalized abdominal pain COMPARISON: KUB same day, CT 12/09/2016 FINDINGS: The lung bases are clear. The round gas structure in right upper quadrant is compatible with fluid-filled or air-fluid filled duodenum. There is no abscess. The gallbladder is surgically absent. Solid organs, vascular structures and bowel are otherwise unremarkable. The right kidney is surgically absent. 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 Urinary bladder is unremarkable. No free air, free fluid or abscess is seen. Osseous structures are age-appropriate. IMPRESSION: 1. No bowel obstruction, free air, free fluid or abscess identified. 2. Surgically absent gallbladder and right kidney. 3. Normal variant left renal ectopia. Dictated by: Dictated on workstation # [id number] Dict: 01/30/171854 Trans: 01/30/171902 Interpreted by: ROSHAN VALDEZ Electronically signed by: ROSHAN VALDEZ 01/30/171902 (ROSAMARIA CALIXTO MD) Departure Impression Impression: Primary Impression: Gastroenteritis and colitis, viral Additional Impression: Viral upper respiratory tract infection Disposition: HOME, SELF-CARE Condition: Stable Departure-Patient Inst. Referrals: LIBERTAD OROSCO DO (PCP) Primary Care Physician LAWANDA SHAVER (Family) Primary Care Physician Patient Instructions: Viral Gastroenteritis, Adult (DC) Add. Discharge Instructions: Drink copious amounts of fluids and eat a bland diet consist of things like bananas, rice, applesauce and toast until your symptoms resolved. If you have nausea take one tablet of Zofran and place under your tongue allowed to absorb every 6 hours as needed. If the diarrhea goes on for more than 48 hours and you' re not able to keep up with your drinking then you may use 2 tablets of Imodium followed by one tablet every 4 hours that you have a loose stool. All discharge instructions reviewed with patient and/or family. Voiced understanding. Scripts Ondansetron (Ondansetron Odt) 4 Mg Tab.rapdis 4 MG PO Q6H Y for NAUSEA/VOMITING, #8 TAB 0 Refills Prov: CARA HUGHES 01/30/17 Work/School Note: Work Release Form Date Seen in the Emergency Department: Jan 30, 2017 Return to Work: Feb 01, 2017 Restrictions: No Restrictions Copy Copies To 1: LIBERTAD OROSCO TITUS J Jan 30, 2017 17:32 ROSAMARIA CALIXTO MD Jan 30, 2017 20:14
[2017-01-30] MEDS ORDERED: ONDA4TAB11 PO (17:35)
[2017-01-30 17:41] LABS: BASOPHILS % (AUTO) 0 % (0-10); EOSINOPHILS # (AUTO) 0.1 10^3/uL (0.0-0.3); EOSINOPHILS % (AUTO) 1 % (0-10); LYMPHOCYTES # (AUTO) 0.6 X 10^3 (1.0-4.0); LYMPHOCYTES % (AUTO) 4 % (12-44); MEAN CORPUSCULAR HEMOGLOBIN 31 PG (25-34); MEAN CORPUSCULAR HGB CONC 35 G/DL (32-36); MEAN CORPUSCULAR VOLUME 88 FL (80-99); MEAN PLATELET VOLUME 9.9 FL (7.4-10.4); MONOCYTES # (AUTO) 0.9 X 10^3 (0.0-1.0); MONOCYTES % (AUTO) 6 % (0-12); NEUTROPHILS % (AUTO) 90 % (42-75); PLATELET COUNT 208 10^3/uL (130-400); RED BLOOD COUNT 4.99 10^6/uL (4.35-5.85); RED CELL DISTRIBUTION WIDTH 12.5 % (10.0-14.5); WHITE BLOOD COUNT 14.6 10^3/uL (4.3-11.0)
[2017-01-30 17:58] LABS: BAND NEUTROPHILS 3 %; BASOPHILS % (MANUAL) 0 %; EOSINOPHILS % (MANUAL) 0 %; LYMPHOCYTES % (MANUAL) 0 %; NEUTROPHILS % (MANUAL) 90 %; REACTIVE LYMPHOCYTES 5 %
[2017-01-30 18:00] LABS: ALANINE AMINOTRANSFERASE 49 U/L (0-55); ALBUMIN 4.2 GM/DL (3.2-4.5); ANION GAP 14 MMOL/L (5-14); ASPARTATE AMINO TRANSFERASE 19 U/L (5-34); BILIRUBIN,TOTAL 0.5 MG/DL (0.1-1.0); BLOOD UREA NITROGEN 20 MG/DL (7-18); BUN/CREATININE RATIO 26; CALCIUM 9.5 MG/DL (8.5-10.1); CARBON DIOXIDE 25 MMOL/L (21-32); CHLORIDE 103 MMOL/L (98-107); CREATININE SERUM 0.78 MG/DL (0.60-1.30); GFR ESTIMATED > 60; GLUCOSE 131 MG/DL (70-105); MAGNESIUM 1.5 MG/DL (1.8-2.4); POTASSIUM 4.4 MMOL/L (3.6-5.0); SODIUM 142 MMOL/L (135-145); TOTAL PROTEIN 7.1 GM/DL (6.4-8.2); hs C REACTIVE PROTEIN 0.96 MG/DL (0.00-0.50)
--- NOTE | 2017-01-30 18:00 | Diagnostic Imaging Report ---
INDICATION: Nausea and vomiting. COMPARISON: 12/09/2016. FINDINGS: Multiple vascular clips are seen on the right. Cholecystectomy clips are present. There is a focal round gas bubble in the right upper quadrant, probably contained within bowel. If the patient has fever or a white count, consider CT imaging. Otherwise, the bowel gas pattern is normal. There is no free air. Osseous structures are normal. IMPRESSION: 1. Focal round gas filled structure in the right upper quadrant probably within normal bowel. If the patient has fever or a white count, consider CT imaging to exclude abscess. 2. No bowel obstruction or free air identified. Dictated by: Dictated on workstation # [id number]
[2017-01-30] MEDS ORDERED: fentaNYL INJECTION 100 MCG/2 ML AMP IVP ONE (18:15)
[2017-01-30] MEDS ORDERED: NS 100 ML (IVPB) BAG IV ONE (18:45)
[2017-01-30] MEDS ORDERED: IOHEXOL 350 MG/ML 100 ML (OMNIPAQUE 350) VIAL IV ONE (18:45)
--- NOTE | 2017-01-30 19:01 | Diagnostic Imaging Report ---
PROCEDURE: CT abdomen and pelvis with contrast. TECHNIQUE: Multiple contiguous axial images were obtained through the abdomen and pelvis after administration of intravenous contrast. INDICATION: Generalized abdominal pain COMPARISON: KUB same day, CT 12/09/2016 FINDINGS: The lung bases are clear. The round gas structure in right upper quadrant is compatible with fluid-filled or air-fluid filled duodenum. There is no abscess. The gallbladder is surgically absent. Solid organs, vascular structures and bowel are otherwise unremarkable. The right kidney is surgically absent. 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 Urinary bladder is unremarkable. No free air, free fluid or abscess is seen. Osseous structures are age-appropriate. IMPRESSION: 1. No bowel obstruction, free air, free fluid or abscess identified. 2. Surgically absent gallbladder and right kidney. 3. Normal variant left renal ectopia. Dictated by: Dictated on workstation # [id number]
[2017-01-30] MEDS ORDERED: RX-HYOSCYAMINE 0.125 MG SL (LEVSIN) PPK#6 ONE (20:08)
[2017-01-30] MEDS ORDERED: RX-ONDANSETRON 4 MG ODT (ZOFRAN) PPK #4 ONE (20:08)
[2017-01-30 20:17] VITALS: BP 114/74
== END 2017-01-30 20:17 | disposition home or self-care (01) ==
LOC: EDUNIT# 16:54 → ER 16:56
DX: A08.4 Viral intestinal infection, unspecified (principal); J06.9 Acute upper respiratory infection, unspecified; Q96.9 Turner's syndrome, unspecified; F41.9 Anxiety disorder, unspecified; F32.9 Major depressive disorder, single episode, unspecified; Z98.890 Other specified postprocedural states; Z90.49 Acquired absence of other specified parts of digestive tract; Z90.89 Acquired absence of other organs; Z90.5 Acquired absence of kidney; Z87.448 Personal history of other diseases of urinary system; Z87.19 Personal history of other diseases of the digestive system
CPT/HCPCS: 36415; 74000; 74177; 80053; 83735; 85007; 85027; 86141

== ENCOUNTER 2017-08-03 11:21 | Inpatient (IN) | payer OTHER ==
[~2017-08-03] VITALS: Ht 139.7 cm; Wt 54.4 kg
[~2017-08-03 11:21] MED LIST changes: +ONDA4TAB11 PO
[2017-08-03] MEDS ORDERED: fentaNYL INJECTION 100 MCG/2 ML AMP IVP ONE ×2 (12:30→14:00)
[2017-08-03] MEDS ORDERED: ONDANSETRON 4 MG/2 ML (SDV) Z0FRAN IVP ONE (12:30)
[2017-08-03 12:35] LABS: BILIRUBIN,URINE NEGATIVE (NEGATIVE); CLARITY,URINE CLEAR; COLOR,URINE YELLOW; GLUCOSE, URINE (UA) NEGATIVE (NEGATIVE); KETONES,URINE 2+ (NEGATIVE); LEUKOCYTE ESTERASE ,URINE 1+ (NEGATIVE); NITRITE,URINE NEGATIVE (NEGATIVE); PH,URINE 6 (5-9); PROTEIN,URINE NEGATIVE (NEGATIVE); UROBILINOGEN,URINE NORMAL (NORMAL)
[2017-08-03] MEDS: NS IV 1000 ML 1,000 ML IV SCH ×3 (12:40→16:41)
[2017-08-03] MEDS ORDERED: NS 250 ML (IVPB) BAG IV ONE (12:45)
[2017-08-03] MEDS ORDERED: IOHEXOL 350 MG/ML 100 ML (OMNIPAQUE 350) VIAL IV ONE (12:45)
[2017-08-03 12:50] LABS: BASOPHILS % (AUTO) 0 % (0-10); EOSINOPHILS % (AUTO) 0 % (0-10); HEMATOCRIT 41 % (35-52); HEMOGLOBIN 14.7 G/DL (11.5-16.0); LYMPHOCYTES # (AUTO) 0.6 X 10^3 (1.0-4.0); LYMPHOCYTES % (AUTO) 7 % (12-44); MEAN CORPUSCULAR HEMOGLOBIN 31 PG (25-34); MEAN CORPUSCULAR HGB CONC 36 G/DL (32-36); MEAN CORPUSCULAR VOLUME 87 FL (80-99); MEAN PLATELET VOLUME 9.3 FL (7.4-10.4); MONOCYTES # (AUTO) 0.4 X 10^3 (0.0-1.0); MONOCYTES % (AUTO) 5 % (0-12); NEUTROPHILS # (AUTO) 8.1 X 10^3 (1.8-7.8); NEUTROPHILS % (AUTO) 89 % (42-75); PLATELET COUNT 191 10^3/uL (130-400); RED BLOOD COUNT 4.68 10^6/uL (4.35-5.85); RED CELL DISTRIBUTION WIDTH 12.5 % (10.0-14.5); WHITE BLOOD COUNT 9.2 10^3/uL (4.3-11.0)
[2017-08-03 12:51] LABS: BACTERIA,URINE NEGATIVE /HPF; SQUAMOUS EPITHELIAL CELL,UR 0-2 /HPF; WBC,URINE RARE /HPF
[2017-08-03 13:13] LABS: BAND NEUTROPHILS 2 %; BASOPHILS % (MANUAL) 0 %; EOSINOPHILS % (MANUAL) 0 %; LYMPHOCYTES % (MANUAL) 8 %; MONOCYTES % (MANUAL) 3 %; NEUTROPHILS % (MANUAL) 87 %; RBC MORPH NORMAL
[2017-08-03 13:15] LABS: ALANINE AMINOTRANSFERASE 65 U/L (0-55); ALBUMIN 4.3 GM/DL (3.2-4.5); ALKALINE PHOSPHATASE 83 U/L (40-136); AMYLASE 106 U/L (25-125); BILIRUBIN,TOTAL 0.8 MG/DL (0.1-1.0); BUN/CREATININE RATIO 20; CALCIUM 9.9 MG/DL (8.5-10.1); CARBON DIOXIDE 23 MMOL/L (21-32); CHLORIDE 105 MMOL/L (98-107); CREATININE SERUM 0.71 MG/DL (0.60-1.30); GFR ESTIMATED > 60; GLUCOSE 101 MG/DL (70-105); LIPASE 25 U/L (8-78); POTASSIUM 4.3 MMOL/L (3.6-5.0); SODIUM 140 MMOL/L (135-145); TOTAL PROTEIN 6.9 GM/DL (6.4-8.2)
--- NOTE | 2017-08-03 13:45 | ED Abdominal Pain ---
General Chief Complaint: Abdominal/GI Problems Stated Complaint: LEFT SIDE PAIN/NAUSEA Nursing Triage Note: LEFT LOWER ABD PAIN WITH NAUSEA STARTING YESTERDAY. Sepsis Screen: No Definite Risk History of Present Illness Date Seen by Provider: Aug 03, 2017 Time Seen by Provider: 12:45 Initial Comments Patient is a 46-year-old female who presents to the emergency room with complaints of left lower abdominal pain with nausea that started yesterday evening. She reports that she has a history of diverticulitis and colitis. She denies vomiting, fevers, constipation, but reports she's had loose stools. Timing/Duration: 1-2 Days Severity/Quality: Moderate Location: LLQ Radiation: No Radiation Modifying Factors: Improves With Movement Associated Symptoms: Nausea/Vomiting Allergies and Home Medications Allergies Coded Allergies: Sulfa (Sulfonamide Antibiotics) (Verified Allergy, Mild, RASH, 11/05/12) acetaminophen (Verified Adverse Reaction, Mild, N/V, 11/05/12) oxycodone HCl (Verified Adverse Reaction, Mild, N/V, 11/05/12) Home Medications Alendronate Sodium 70 Mg Tablet, 70 MG PO WEEK, (Reported) Clonazepam 1 Mg Tablet, 1 MG PO HS, (Reported) Diclofenac Sodium 75 Mg Tablet.dr, 75 MG PO BID, (Reported) Duloxetine HCl 30 Mg Capsule.dr, 30 MG PO DAILY, (Reported) Nitrofurantoin Monohyd/M-Cryst 100 Mg Capsule, 100 MG PO BID Prescribed by: ANNITA SPENCER on 12/09/16 0648 Ondansetron 4 Mg Tab.rapdis, 4 MG PO Q6H PRN for NAUSEA/VOMITING Prescribed by: CARA CANO on 01/30/17 1735 Tramadol HCl 50 Mg Tablet, 50 MG PO Q4H Prescribed by: ANNITA SPENCER on 12/09/16 0648 Patient Home Medication List Home Medication List Reviewed: Yes Review of Systems Constitutional: see HPI; No chills, No diaphoresis, No fever EENTM: See HPI; No Blurred Vision, No Double Vision Respiratory: See HPI; Denies Cough, Denies Orthopnea Cardiovascular: See HPI; Denies Chest Pain Gastrointestinal: See HPI, Abdominal Pain; Denies Constipated; Diarrhea, Nausea ; Denies Rectal Bleeding, Denies Vomiting Genitourinary: See HPI; Denies Burning, Denies Discharge Musculoskeletal: see HPI; No back pain, No gout, No joint pain Skin: see HPI; No change in color, No change in hair/nails Psychiatric/Neurological: See HPI; Denies Anxiety, Denies Depressed Endocrine: See HPI; Denies Excessive Sweating, Denies Flushing Hematologic/Lymphatic: See HPI; Denies Anemia All Other Systems Reviewed Negative Unless Noted: Yes Past Bqlgaau-Uwqods-Wgoynf Hx Past Med/Social Hx: Reviewed Nursing Past Med/Soc Hx Patient Social History Alcohol Use: Occasionally Uses Recreational Drug Use: No Smoking Status: Never a Smoker Recent Foreign Travel: No Contact w/Someone Who Travel: No Recent Infectious Disease Expo: No Recent Hopitalizations: No Immunizations Up To Date Date of Influenza Vaccine: Nov 06, 2016 Seasonal Allergies Seasonal Allergies: No Past Medical History Surgeries: Yes (RIGHT NEPHRECTOMY--" KIDNEY", VENTRAL HERNIA REPAIR, BMT'S , ) Abdominal, Adenoidectomy, Appendectomy, Ear Surgery, Gallbladder, Nephrectomy, Tonsillectomy Respiratory: No Cardiac: No Neurological: No Reproductive Disorders: Yes (NICHOLS'S SYNDROME) Genitourinary: Yes (S/P RIGHT NEPHRECTOMY FOR NON-FUNCTIONING KIDNEY) Kidney Infection, Bladder Infection, Kidney Stones, Polycystic Kidney Disease Gastrointestinal: Yes (HERNIA REPAIR, HEPATITIS A) Abdominal Hernia, Colitis, Hepatitis, Gall Bladder Disease, Irritable Bowel Musculoskeletal: Yes Arthritis Endocrine: Yes (NICHOLS'S SYNDROME) HEENT: Yes Chronic Ear Infection, Tonsilitis Hearing Impairment: Hard of Hearing Cancer: No Psychosocial: Yes Anxiety, Depression Integumentary: No Blood Disorders: No Family Medical History Reviewed Nursing Family Hx Physical Exam Vital Signs Vital Signs - First Documented 08/03/17 12:29 Temp 98.0 Pulse 73 Resp 16 B/P (MAP) 146/90 (108) Pulse Ox 100 O2 Delivery Room Air Capillary Refill : Less Than 3 Seconds General Appearance: WD/WN, no apparent distress HEENT: normal ENT inspection, TMs normal, pharynx normal Neck: non-tender, full range of motion, supple, normal inspection Respiratory: chest non-tender, lungs clear, normal breath sounds, no respiratory distress, no accessory muscle use Cardiovascular: regular rate, rhythm, no edema, no gallop, no JVD, no murmur Gastrointestinal: normal bowel sounds, soft, no organomegaly, no pulsatile mass , tenderness (patient has marked tenderness in the left lower quadrant area.) Extremities: normal range of motion, non-tender, normal inspection, no pedal edema, no calf tenderness Back: normal inspection, no CVA tenderness, no vertebral tenderness Pelvic: normal external exam, normal adnexa, no cerv. 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, no motor/sensory deficits, alert, normal mood/affect, oriented x 3 Skin: normal color, warm/dry Lymphatic: no adenopathy Progress/Results/Core Measures Results/Orders Lab Results Laboratory Tests Test 08/03/17 12:25 08/03/17 12:40 Range/Units Urine Color YELLOW Urine Clarity CLEAR Urine pH 6 5-9 Urine Specific [place] 1.015 L 1.016-1.022 Urine Protein NEGATIVE NEGATIVE Urine Glucose (UA) NEGATIVE NEGATIVE Urine Ketones 2+ H NEGATIVE Urine Nitrite NEGATIVE NEGATIVE Urine Bilirubin NEGATIVE NEGATIVE Urine Urobilinogen NORMAL NORMAL MG/DL Urine Leukocyte Esterase 1+ H NEGATIVE Urine RBC (Auto) NEGATIVE NEGATIVE Urine RBC NONE /HPF Urine WBC RARE /HPF Urine Squamous Epithelial Cells 0-2 /HPF Urine Crystals NONE /LPF Urine Bacteria NEGATIVE /HPF Urine Casts NONE /LPF Urine Mucus NEGATIVE /LPF Urine Culture Indicated NO White Blood Count 9.2 4.3-11.0 10^3/uL Red Blood Count 4.68 4.35-5.85 10^6/uL Hemoglobin 14.7 11.5-16.0 G/DL Hematocrit 41 35-52 % Mean Corpuscular Volume 87 80-99 FL Mean Corpuscular Hemoglobin 31 25-34 PG Mean Corpuscular Hemoglobin Concent 36 32-36 G/DL Red Cell Distribution Width 12.5 10.0-14.5 % Platelet Count 191 130-400 10^3/uL Mean Platelet Volume 9.3 7.4-10.4 FL Neutrophils (%) (Auto) 89 H 42-75 % Lymphocytes (%) (Auto) 7 L 12-44 % Monocytes (%) (Auto) 5 0-12 % Eosinophils (%) (Auto) 0 0-10 % Basophils (%) (Auto) 0 0-10 % Neutrophils # (Auto) 8.1 H 1.8-7.8 X 10^3 Lymphocytes # (Auto) 0.6 L 1.0-4.0 X 10^3 Monocytes # (Auto) 0.4 0.0-1.0 X 10^3 Eosinophils # (Auto) 0.0 0.0-0.3 10^3/uL Basophils # (Auto) 0.0 0.0-0.1 10^3/uL Neutrophils % (Manual) 87 % Lymphocytes % (Manual) 8 % Monocytes % (Manual) 3 % Eosinophils % (Manual) 0 % Basophils % (Manual) 0 % Band Neutrophils 2 % Blood Morphology Comment NORMAL Sodium Level 140 135-145 MMOL/L Potassium Level 4.3 3.6-5.0 MMOL/L Chloride Level 105 98-107 MMOL/L Carbon Dioxide Level 23 21-32 MMOL/L Anion Gap 12 5-14 MMOL/L Blood Urea Nitrogen 14 7-18 MG/DL Creatinine 0.71 0.60-1.30 MG/DL Estimat Glomerular Filtration Rate > 60 BUN/Creatinine Ratio 20 Glucose Level 101 70-105 MG/DL Calcium Level 9.9 8.5-10.1 MG/DL Total Bilirubin 0.8 0.1-1.0 MG/DL Aspartate Amino Transf (AST/SGOT) 26 5-34 U/L Alanine Aminotransferase (ALT/SGPT) 65 H 0-55 U/L Alkaline Phosphatase 83 40-136 U/L Total Protein 6.9 6.4-8.2 GM/DL Albumin 4.3 3.2-4.5 GM/DL Amylase Level 106 25-125 U/L Lipase 25 8-78 U/L My Orders Orders - ALIRIO WILSON Comprehensive Metabolic Panel (08/03/17 12:21) Lipase (08/03/17 12:21) Amylase (08/03/17 12:21) Ua Culture If Indicated (08/03/17 12:21) Saline Lock/Iv-Start (08/03/17 12:21) Cbc With Automated Diff (08/03/17 12:21) Ondansetron Injection (Zofran Injectio (08/03/17 12:30) Ns Iv 1000 Ml (Sodium Chloride 0.9%) (08/03/17 12:30) Fentanyl Injection (Sublimaze Injection (08/03/17 12:30) Ct Abdomen/Pelvis W (08/03/17 12:29) Iohexol Injection (Omnipaque 350 Mg/Ml 1 (08/03/17 12:45) Ns (Ivpb) (Sodium Chloride 0.9%) (08/03/17 12:45) Manual Differential (08/03/17 12:40) Fentanyl Injection (Sublimaze Injection (08/03/17 14:00) Medications Given in ED Current Medications Medications Dose Ordered Sig/Nestor Route Start Time Stop Time Status Last Admin Dose Admin Fentanyl Citrate 25 mcg ONCE ONCE IVP 08/03/17 14:00 08/03/17 14:01 DC 08/03/17 14:04 25 MCG Fentanyl Citrate 50 mcg ONCE ONCE IVP 08/03/17 12:30 08/03/17 12:31 DC 08/03/17 12:40 50 MCG Iohexol 100 ml ONCE ONCE IV 08/03/17 12:45 08/03/17 12:46 DC 08/03/17 13:11 100 ML Ondansetron HCl 4 mg ONCE ONCE IVP 08/03/17 12:30 08/03/17 12:31 DC 08/03/17 12:39 4 MG Sodium Chloride 250 ml ONCE ONCE IV 08/03/17 12:45 08/03/17 12:46 DC 08/03/17 13:11 80 ML Vital Signs/I&O 08/03/17 12:29 Temp 98.0 Pulse 73 Resp 16 B/P (MAP) 146/90 (108) Pulse Ox 100 O2 Delivery Room Air Blood Pressure Mean: 108 Progress Progress Note : Time: 13:45 Progress Note The patient is pain-free at this time and her nausea has resolved. We're awaiting the CT scan results at this time. 1355: 30 Dr. José in regards to the patient's CT findings he will be coming to the emergency room to see the patient. 1515: Dr. José is here to see the patient at this time. He agrees for planes of admission to himself, to a surgical bed on fourth floor. Diagnostic Imaging Diagonstic Imaging: CT Plain Films/CT/US/NM/MRI: abdomen, pelvis Comments NAME: DOV LOCKHART MED REC#: [id number] PT STATUS: REG ER : 1970 PHYSICIAN: ALIRIO WILSON ADMIT DATE: 08/03/17/ER Draft Date of Exam:08/03/17 CT ABDOMEN/PELVIS W PROCEDURE: CT abdomen and pelvis with contrast. TECHNIQUE: Multiple contiguous axial images were obtained through the abdomen and pelvis after administration of intravenous contrast. INDICATION: Nausea, vomiting, and diarrhea of one day duration. FINDINGS: There are findings suggestive of at least partial mid to distal small bowel obstruction with the distal ileum distended with small bowel feces measuring 4.2 cm in transverse diameter. There is some focal mucosal hyperemia and hyperenhancement just proximal to the level of the ileocecal valve. The colon is decompressed. The stomach is not pathologically distended. No appreciable perienteric edema or mesenteric infiltration. No pneumatosis or free gas. The dilated distal ileal loops in the pelvis and right lower quadrant show some generalized mild mucosal hyperemia and wall thickening. Findings could be infectious or reflect underlying inflammatory bowel disease. There are a few shotty reactive right lower quadrant mesenteric nodes of less than 1 cm. No free air. The gallbladder is surgically absent. No pathological distention of the bile ducts. The spleen, bilateral adrenals, and pancreas are unremarkable. There is some ectasia of the left renal collecting systems involving its upper and lower pole moieties. That structure is partially duplicated. Collecting system dilatation has mildly increased when compared to study of 12/09/2016. The ureter is ectatic to the level of the left pelvic surgical clip in an unchanged fashion from prior. No intraureteral stone. No calculus in the urinary bladder. No extravasation of the urinary contrast. IMPRESSION: 1. Findings of at least partial small bowel obstruction to the level of the terminal ileum where there is fairly intense mucosal hyperemia and hyperenhancement at the dynamic phase. The remaining distal small bowel in the pelvis and right lower quadrant along the ileum shows some mild wall thickening and more mild diffuse homogeneous mucosal hyperemia. This could be infectious or reflect inflammatory bowel disease. Decompressed colon beyond that level. No gastric distention. No perforation or abscess. Mild reactive adenopathy in the right lower quadrant mesentery. Absent right kidney with progressive but chronic left hydronephrosis and chronic dysmorphology of the left kidney. No opaque stone. Ureterectasis to the level of the left pelvic surgical clip. No urinoma or perinephric edema. 2. Not mentioned above, supraumbilical fatty abdominal wall hernia, right of midline, unchanged from prior without inflammation. Dictated on workstation # [id number] Dict: 08/03/17 1324 Trans: 08/03/17 1348 [id number] Interpreted by: GARRET BRENNER Electronically signed by: Departure Communication (Admissions) Time/Spoke to Admitting Phy: 15:15 Dr. Clement is in the emergency room to see the patient at this time. He agrees with plans of admission for a small bowel obstruction to the fourth floor. Impression Primary Impression: Small bowel obstruction Disposition: ADMITTED INPATIENT Condition: Stable/Unchanged Admissions Decision to Admit Reason: Admit from ER (Trauma) Decision to Admit/Date: Aug 03, 2017 Time/Decision to Admit Time: 15:15 Departure-Patient Inst. Referrals: [facility] (PCP/Family) Primary Care Physician ALIRIO WILSON Aug 03, 2017 13:45
--- NOTE | 2017-08-03 13:49 | Diagnostic Imaging Report ---
PROCEDURE: CT abdomen and pelvis with contrast. TECHNIQUE: Multiple contiguous axial images were obtained through the abdomen and pelvis after administration of intravenous contrast. INDICATION: Nausea, vomiting, and diarrhea of one day duration. FINDINGS: There are findings suggestive of at least partial mid to distal small bowel obstruction with the distal ileum distended with small bowel feces measuring 4.2 cm in transverse diameter. There is some focal mucosal hyperemia and hyperenhancement just proximal to the level of the ileocecal valve. The colon is decompressed. The stomach is not pathologically distended. No appreciable perienteric edema or mesenteric infiltration. No pneumatosis or free gas. The dilated distal ileal loops in the pelvis and right lower quadrant show some generalized mild mucosal hyperemia and wall thickening. Findings could be infectious or reflect underlying inflammatory bowel disease. There are a few shotty reactive right lower quadrant mesenteric nodes of less than 1 cm. No free air. The gallbladder is surgically absent. No pathological distention of the bile ducts. The spleen, bilateral adrenals, and pancreas are unremarkable. There is some ectasia of the left renal collecting systems involving its upper and lower pole moieties. That structure is partially duplicated. Collecting system dilatation has mildly increased when compared to study of 12/09/2016. The ureter is ectatic to the level of the left pelvic surgical clip in an unchanged fashion from prior. No intraureteral stone. No calculus in the urinary bladder. No extravasation of the urinary contrast. IMPRESSION: 1. Findings of at least partial small bowel obstruction to the level of the terminal ileum where there is fairly intense mucosal hyperemia and hyperenhancement at the dynamic phase. The remaining distal small bowel in the pelvis and right lower quadrant along the ileum shows some mild wall thickening and more mild diffuse homogeneous mucosal hyperemia. This could be infectious or reflect inflammatory bowel disease. Decompressed colon beyond that level. No gastric distention. No perforation or abscess. Mild reactive adenopathy in the right lower quadrant mesentery. Absent right kidney with progressive but chronic left hydronephrosis and chronic dysmorphology of the left kidney. No opaque stone. Ureterectasis to the level of the left pelvic surgical clip. No urinoma or perinephric edema. 2. Not mentioned above, supraumbilical fatty abdominal wall hernia, right of midline, unchanged from prior without inflammation. Dictated by: Dictated on workstation # [id number]
[2017-08-03 15:40] VITALS: BP 156/80
[2017-08-03] MEDS ORDERED: DULO30CA48 PO (15:49)
[2017-08-03] MEDS ORDERED: CLON1TAB4 PO (15:49)
[2017-08-03] MEDS ORDERED: CHOL5000 PO (15:51)
[2017-08-03 15:58] VITALS: BP 143/88
[2017-08-03] MEDS ORDERED: fentaNYL INJECTION 100 MCG/2 ML AMP IV PRN (16:00)
[2017-08-03] MEDS ORDERED: RT-ALBUTEROL/IPRATROPIUM 3 ML (DUONEB) VIAL INH PRN (16:00)
[2017-08-03] MEDS ORDERED: CATHETER FLUSH 10 ML SYR IV PRN (16:00)
--- NOTE | 2017-08-03 17:28 | History & Physical-Surgical ---
History of Present Illness History of Present Illness Reason for visit/HPI Pt is being admitted for PSBO. HPI per ED: Patient is a 46-year-old female who presents to the emergency room with complaints of left lower abdominal pain with nausea that started yesterday evening. She reports that she has a history of diverticulitis and colitis. She denies vomiting, fevers, constipation, but reports she's had loose stools. Timing/Duration: 1-2 Days Severity/Quality: Moderate Location: LLQ Radiation: No Radiation Modifying Factors: Improves With Movement Associated Symptoms: Nausea/Vomiting When I spoke to pt she states she has had this pain for over 4 years; always starts on the left side. She is not really sure what brings this on and has been told in the past that she has "bowel inflammation". She states she goes to the ER at least 4 times a year because the pain is so bad and her family piped in and said she has pain 2-3 times a month. She has had multiple CT's over the past 4 years. She has hx of multiple abdominal surgeries. She thinks her stomach is a little bloated. Date of Admission Aug 03, 2017 at 14:30 Time Seen by Provider: 16:22 I consulted on this patient on 08/03/17 17:22 Attending Physician Rogelio Coe DO Admitting Physician [place] Consult Allergies and Home Medications Allergies Coded Allergies: Sulfa (Sulfonamide Antibiotics) (Verified Allergy, Mild, RASH, 11/05/12) acetaminophen (Verified Adverse Reaction, Mild, N/V, 11/05/12) oxycodone HCl (Verified Adverse Reaction, Mild, N/V, 11/05/12) Home Medications Alendronate Sodium 70 Mg Tablet, 70 MG PO Mo, (Reported) Cholecalciferol (Vitamin D3) 5,000 Unit Capsule, 5,000 UNIT PO DAILY, (Reported) Clonazepam 1 Mg Tablet, 1 MG PO HS, (Reported) Diclofenac Sodium 75 Mg Tablet.dr, 75 MG PO BID, (Reported) Duloxetine HCl 30 Mg Capsule.dr, 30 MG PO HS, (Reported) Patient Home Medication List Home Medication List Reviewed: Yes Past Tppsvit-Ltdums-Bmbnit Hx Patient Social History Alcohol Use: Occasionally Uses Recreational Drug Use: No Smoking Status: Never a Smoker Recent Foreign Travel: No Contact w/Someone Who Travel: No Recent Infectious Disease Expo: No Recent Hopitalizations: No Physical Abuse Screen: No Sexual Abuse: No Immunizations Up To Date Date of Influenza Vaccine: Nov 06, 2016 Seasonal Allergies Seasonal Allergies: No Surgeries History of Surgeries: Yes (RIGHT NEPHRECTOMY--" KIDNEY", VENTRAL HERNIA REPAIR, BMT'S, ) Surgeries: Abdominal, Adenoidectomy, Appendectomy, Ear Surgery, Gallbladder, Nephrectomy, Tonsillectomy Respiratory History of Respiratory Disorde: No Cardiovascular History of Cardiac Disorders: No Neurological History of Neurological Disord: No Reproductive System : No Hx Reproductive Disorders: Yes (NICHOLS'S SYNDROME) Genitourinary History of Genitourinary Disor: Yes (S/P RIGHT NEPHRECTOMY FOR NON-FUNCTIONING KIDNEY) Genitourinary Disorders: Kidney Infection, Bladder Infection, Kidney Stones, Polycystic Kidney Disease Gastrointestinal History of Gastrointestinal Di: Yes (HERNIA REPAIR, HEPATITIS A) Gastrointestinal Disorders: Abdominal Hernia, Colitis, Hepatitis, Gall Bladder Disease, Irritable Bowel Musculoskeletal History of Musculoskeletal Dis: Yes Musculoskeletal Disorders: Arthritis Endocrine History of Endocrine Disorders: Yes (NICHOLS'S SYNDROME) HEENT History of HEENT Disorders: Yes HEENT Disorders: Chronic Ear Infection, Tonsilitis Hearing Impairment: Hard of Hearing Cancer History of Cancer: No Psychosocial History of Psychiatric Problem: Yes Behavioral Health Disorders: Anxiety, Depression Integumentary History of Skin or Integumenta: No Blood Transfusions History of Blood Disorders: No Family Medical History Significant Family History: Cancer (Aunt had breast CA, Father recently treated for Melanoma), Hypertension (sister) Constitutional: No chills, No diaphoresis; weakness; No weight gain EENTM: hearing loss; No blurred vision, No double vision, No vision loss, No mouth pain, No mouth swelling, No epistaxis, No throat swelling Respiratory: No cough, No dyspnea on exertion, No hemoptysis Cardiovascular: No chest pain, No palpitations Gastrointestinal: LUQ, RLQ, LLQ, abdominal pain (LUQ), nausea, vomiting, other (pt states no flatus in a while) Genitourinary: No dysuria, No frequency, No hematuria : No Musculoskeletal: back pain, joint pain, joint swelling, muscle stiffness Skin: No change in color, No change in hair/nails Psychiatric/Neurological: Anxiety, Depressed; Denies Seizure, Denies Tremors pt denies any abnormal bleeding or bruising, no heat or cold intolerance Physical Exam Vital Signs Vital Signs - First Documented 08/03/17 12:29 Temp 98.0 Pulse 73 Resp 16 B/P (MAP) 146/90 (108) Pulse Ox 100 O2 Delivery Room Air Capillary Refill : Less Than 3 Seconds General Appearance: WD/WN, Mild Distress Eyes: Bilateral Eye PERRL, Bilateral Eye EOMI HEENT: Pharynx Normal, Moist Mucous Membranes; No Pale Conjunctivae (L), No Pale Conjunctivae (R), No Scleral Icterus (L), No Scleral Icterus (R) Neck: Full Range of Motion, Non Tender, Supple; No Thyromegaly Respiratory: Chest Non Tender, Lungs Clear, Normal Breath Sounds, No Accessory Muscle Use, No Respiratory Distress Cardiovascular: Regular Rate, Rhythm, No Edema, No Murmur, Normal Peripheral Pulses Gastrointestinal: Soft, Distended (minimally), Guarding (voluntary), Hernia ( incisional, midline), Tenderness (RLQ most, but also LUQ and LLQ) Back: No CVA Tenderness, No Vertebral Tenderness Extremity: Normal Capillary Refill, Normal Range of Motion, Non Tender, No Calf Tenderness Neurologic/Psychiatric: Oriented x3, No Motor/Sensory Deficits, Normal Mood/ Affect, mix maker II-XII Norm as Tested Skin: Normal Color, Warm/Dry Lymphatic: No Adenopathy (neck, axilla or groin) Data Review Labs Laboratory Tests 08/03/17 12:25: Urine Color YELLOW, Urine Clarity CLEAR, Urine pH 6, Urine Specific [place] 1.015L, Urine Protein NEGATIVE, Urine Glucose (UA) NEGATIVE, Urine Ketones 2+H, Urine Nitrite NEGATIVE, Urine Bilirubin NEGATIVE, Urine Urobilinogen NORMAL, Urine Leukocyte Esterase 1+H, Urine RBC (Auto) NEGATIVE, Urine RBC NONE, Urine WBC RARE, Urine Squamous Epithelial Cells 0-2, Urine Crystals NONE, Urine Bacteria NEGATIVE, Urine Casts NONE, Urine Mucus NEGATIVE, Urine Culture Indicated NO 08/03/17 12:40: White Blood Count 9.2, Red Blood Count 4.68, Hemoglobin 14.7, Hematocrit 41, Mean Corpuscular Volume 87, Mean Corpuscular Hemoglobin 31, Mean Corpuscular Hemoglobin Concent 36, Red Cell Distribution Width 12.5, Platelet Count 191, Mean Platelet Volume 9.3, Neutrophils (%) (Auto) 89H, Lymphocytes (%) (Auto) 7L , Monocytes (%) (Auto) 5, Eosinophils (%) (Auto) 0, Basophils (%) (Auto) 0, Neutrophils # (Auto) 8.1H, Lymphocytes # (Auto) 0.6L, Monocytes # (Auto) 0.4, Eosinophils # (Auto) 0.0, Basophils # (Auto) 0.0, Neutrophils % (Manual) 87, Lymphocytes % (Manual) 8, Monocytes % (Manual) 3, Eosinophils % (Manual) 0, Basophils % (Manual) 0, Band Neutrophils 2, Blood Morphology Comment NORMAL, Sodium Level 140, Potassium Level 4.3, Chloride Level 105, Carbon Dioxide Level 23, Anion Gap 12, Blood Urea Nitrogen 14, Creatinine 0.71, Estimat Glomerular Filtration Rate > 60, BUN/Creatinine Ratio 20, Glucose Level 101, Calcium Level 9.9, Total Bilirubin 0.8, Aspartate Amino Transf (AST/SGOT) 26, Alanine Aminotransferase (ALT/SGPT) 65H, Alkaline Phosphatase 83, Total Protein 6.9, Albumin 4.3, Amylase Level 106, Lipase 25 Assessment/Plan Assessment/Plan Admission Diagonsis PSBO vs CBO Admission Status: Inpatient Order (span 2 midnights) Reason for Inpatient Admission: pt is going to surgery tomorrow, partial bowel resection Assessment/Plan PSBO vs CBO Arthritis Polycystic Kidney dz - s/p right nephrectomy Incarcerated Ventral/Incisional hernia I went over the past 3-4 CT of abd/pelvis with the Radiologist and compared it to todays; pt continues to have the same symptoms and it looks like there is a stricture right at or before the Ileo-Cecal valve. There are lymph nodes surrounding this area, inflammation in surrounding intestine but no signs of a mass. I believe pt's continued abdominal pain and PSBO episodes are because of a stricture and after at least 4 1/2 years of this she needs this area removed. I would like to do bowel prep, but don't think the prep will get through this area and then more fluid in the intestine will make surgery more difficult. We are going to schedule a hand assisted Laparoscopic partial bowel resection; to probably remove portion of the cecum and TI. I discussed this surgery with pt and her family; risks and complication not limited to pain, bleeding, infection, scar, damage to bowel, possible ostomy and need for further procedure. All questions answered to their satisfaction. Clinical Quality Measures DVT/VTE Risk/Contraindication: Risk Factor Score Per Nursin RFS Level Per Nursing on Admit: 1=Low/No VTE PPX ROGELIO COE DO Aug 03, 2017 17:27
[2017-08-03] MEDS: ONDANSETRON 4 MG/2 ML (SDV) Z0FRAN IV PRN (18:53)
[2017-08-03 20:00] VITALS: BP 156/71
[2017-08-03 23:58] VITALS: BP 118/76
[2017-08-04] MEDS: NS IV 1000 ML 1,000 ML IV SCH ×2 (01:28→11:03)
[2017-08-04 04:00] VITALS: BP 118/76
[2017-08-04 06:20] LABS: BASOPHILS % (AUTO) 0 % (0-10); EOSINOPHILS % (AUTO) 0 % (0-10); HEMATOCRIT 37 % (35-52); HEMOGLOBIN 12.9 G/DL (11.5-16.0); LYMPHOCYTES % (AUTO) 13 % (12-44); MEAN CORPUSCULAR HEMOGLOBIN 31 PG (25-34); MEAN CORPUSCULAR HGB CONC 35 G/DL (32-36); MEAN CORPUSCULAR VOLUME 88 FL (80-99); MEAN PLATELET VOLUME 9.9 FL (7.4-10.4); MONOCYTES # (AUTO) 0.6 X 10^3 (0.0-1.0); MONOCYTES % (AUTO) 8 % (0-12); NEUTROPHILS # (AUTO) 5.9 X 10^3 (1.8-7.8); NEUTROPHILS % (AUTO) 79 % (42-75); PLATELET COUNT 185 10^3/uL (130-400); RED BLOOD COUNT 4.21 10^6/uL (4.35-5.85); RED CELL DISTRIBUTION WIDTH 12.5 % (10.0-14.5); WHITE BLOOD COUNT 7.5 10^3/uL (4.3-11.0)
[2017-08-04 06:39] LABS: ALANINE AMINOTRANSFERASE 43 U/L (0-55); ALBUMIN 3.5 GM/DL (3.2-4.5); ALKALINE PHOSPHATASE 73 U/L (40-136); BILIRUBIN,TOTAL 0.7 MG/DL (0.1-1.0); BUN/CREATININE RATIO 18; CALCIUM 8.1 MG/DL (8.5-10.1); CARBON DIOXIDE 21 MMOL/L (21-32); CHLORIDE 111 MMOL/L (98-107); CREATININE SERUM 0.62 MG/DL (0.60-1.30); GFR ESTIMATED > 60; GLUCOSE 72 MG/DL (70-105); POTASSIUM 3.6 MMOL/L (3.6-5.0); SODIUM 142 MMOL/L (135-145); TOTAL PROTEIN 5.6 GM/DL (6.4-8.2)
[2017-08-04 08:00] VITALS: BP 146/76
[2017-08-04] MEDS ORDERED: MIDAZOLAM 2 MG/2 ML (VERSED) VIAL ONE (10:11)
[2017-08-04] MEDS ORDERED: ONDANSETRON 4 MG/2 ML (SDV) Z0FRAN ONE (10:11)
[2017-08-04] MEDS ORDERED: fentaNYL INJECTION 100 MCG/2 ML AMP ONE ×2 (10:11→12:37)
[2017-08-04] MEDS ORDERED: LIDOCAINE PF 2% 5 ML (XYLOCAINE) VIAL ONE (10:11)
[2017-08-04] MEDS ORDERED: DEXAMETHASONE 10 MG/ML (DECADRON) 1 ML VIAL ONE (10:11)
[2017-08-04] MEDS ORDERED: ROCURONIUM 10 MG/ML 5 ML SYRINGE IV ONE ×2 (10:11→13:10)
[2017-08-04] MEDS ORDERED: LIDOCAINE JELLY 2% (XYLOCAINE) 5 ML TUBE ONE (10:11)
[2017-08-04] MEDS ORDERED: proPOfol 200 MG/20 ML (DIPRIVAN) VIAL IV ONE (10:11)
[2017-08-04] MEDS ORDERED: SEVOFLURANE (ULTANE) 15 ML INHAL SOLN ONE ×5 (10:16→13:09)
[2017-08-04] MEDS ORDERED: LIDOCAINE 1% INJ 20 ML 20 ML VIAL ONE (10:25)
[2017-08-04] MEDS ORDERED: BUPIVACAINE 0.5% 30 ML (SENSORCAINE) VIAL ONE (10:25)
[2017-08-04] MEDS: LACTATED RINGERS 1,000 ML IV PRN ×4 (10:50→13:40)
[2017-08-04] MEDS ORDERED: metroNIDAZOLE 500MG/100ML IVPB 100 ML ONE (10:56)
[2017-08-04] MEDS ORDERED: ceFAZolin 1,000 MG (ANCEF) VIAL ONE (10:56)
[2017-08-04] MEDS ORDERED: NS (IVPB) 100 ML ONE (10:57)
[2017-08-04] MEDS ORDERED: LIDOCAINE/EPI 1%-1:200,000 (XYLOCAINE) 10 ML VIAL ONE (11:22)
[2017-08-04] MEDS ORDERED: SUCCINYLCHOLINE INJ 100 MG/5 ML SYR ONE (13:11)
[2017-08-04] MEDS ORDERED: GLYCOPYRROLATE 0.2 MG/ML (ROBINUL) 2 ML VIAL ONE (13:41)
[2017-08-04] MEDS ORDERED: NEOSTIGMINE 1 MG/ML 5 ML SYRINGE ONE (13:41)
--- NOTE | 2017-08-04 13:59 | Progress Note-Post Operative ---
Post-Operative Progess Note Surgeon (s)/Nursing Associate (s) Surgeon NORBERT COE DO Nursing Associate: Ana Pre-Operative Diagnosis PSBO r/o stricture Post-Operative Diagnosis PSBO secondary to stricture Adhesions Incarcerated incisional hernia Procedure & Operative Findings Date of Procedure 08/04/17 Procedure Performed/Findings Partial Colon resection, Cecum and portion of TI Extensive OTILIA, more than an hour Anesthesia Type GET Estimated Blood Loss Estimated blood loss (mL): appx 50ml Specimens/Packing Specimens Removed portion of cecum, portion of TI portion of hernia sac and contents NORBERT COE DO Aug 04, 2017 13:59
[2017-08-04] MEDS ORDERED: ONDANSETRON 4 MG/2 ML (SDV) Z0FRAN IVP PRN ×2 (14:00→14:45)
[2017-08-04] MEDS ORDERED: morphine INJ 10 MG/ML 1ML (SYR OR VIAL) IVP PRN (14:00)
[2017-08-04] MEDS ORDERED: ROPIVACAINE 5MG/ML 30ML VIAL ONE (14:24)
[2017-08-04] MEDS ORDERED: PHENYLEPHRINE INJ 10 MG/ML (NEO-SYNEPHRINE 1%) ONE (14:28)
[2017-08-04] MEDS ORDERED: MEPERIDINE (DEMEROL) INJ 50 MG/ML IVP PRN (14:45)
[2017-08-04] MEDS ORDERED: morphine INJ 10 MG/ML 1ML (SYR OR VIAL) ONE (14:46)
[2017-08-04] MEDS: LACTATED RINGERS 1,000 ML IV SCH ×2 (14:46→15:57)
[2017-08-04] MEDS: morphine INJ 10 MG/ML 1ML (SYR OR VIAL) IVP PRN ×4 (14:55→22:18)
[2017-08-04 15:44] VITALS: BP 116/73
[2017-08-04] MEDS: ENOXAPARIN 40 MG/0.4 ML (LOVENOX) SYR SC SCH (15:56)
[2017-08-04] MEDS: metroNIDAZOLE 500MG/100ML IVPB 100 ML IV SCH (18:00)
[2017-08-04] MEDS: ceFAZolin 2 GM IV Premixed 50 ML IV SCH (18:01)
[2017-08-04 19:52] VITALS: BP 128/79
[2017-08-04] MEDS: ONDANSETRON 4 MG/2 ML (SDV) Z0FRAN IV PRN (22:39)
[2017-08-04 23:45] VITALS: BP 132/79
[2017-08-05] MEDS: LACTATED RINGERS 1,000 ML IV SCH (01:06)
--- NOTE | 2017-08-05 01:14 | OPERATIVE REPORT ---
DATE OF SERVICE: PREOPERATIVE DIAGNOSES: 1. Partial small-bowel obstruction most likely due to stricture. 2. History of polycystic kidney disease. POSTOPERATIVE DIAGNOSES: 1. Partial small-bowel obstruction most likely due to stricture, pending pathology. 2. History of polycystic kidney disease 3. Incarcerated incisional ventral hernia. PROCEDURE: 1. Partial colon resection with primary anastomosis. 2. Extensive lysis of adhesions. SURGEON: Rogelio Clement DO. FINANCE ADMINISTRATOR: John Perez DO. ANESTHESIA: General endotracheal tube. SPECIMENS: 1. Portion of cecum as well as portion of terminal ileum. 2. Portion of hernia sac and hernia contents. BLOOD LOSS: Approximately 50 mL. FLUIDS: Per anesthesia. POSTOPERATIVE CONDITION: Stable. INDICATION FOR PROCEDURE: The patient is a 46-year-old female who has been having pain for the past almost 4 to 5 years, always seemed to be the same symptoms usually starts from the left side, but then onto the right side and has been in the hospital at least four times every year, has had multiple CTs, all showed the same thing, which looked to me like a possible stricture at the terminal ileum. FINDINGS: The patient had extensive adhesions. She had Incarcerated ventral incisional hernia and she had a stricture and felt like mass at the terminal ileum and cecum. PROCEDURE NOTE: After informed consent was obtained, the patient was brought to the operating room, placed on the table in supine position. She was sterilely prepped and draped in normal fashion. Started this procedure by making an incision in the left upper quadrant after first infiltrating the skin with local, made an incision with #11 blade, carried down through the skin into subcutaneous tissue, then deepened down to subcutaneous tissue with Bovie electrocautery down to the fascia. Fascia was incised with electrocautery, then bluntly spread the muscle, went to the posterior fascia and then spread the muscle and then bluntly entered the peritoneum, placed 11 mm trocar port under direct visualization and created pneumoperitoneum. Upon entry, noted a lot of adhesions. Placed another 5 mm port down the left lower quadrant under direct visualization, placing using local lidocaine and 11 blade for stab incision and Versed system, all done under direct visualization, used this and placed the LigaSure through and then started carefully taking down the adhesions using blunt dissection as well as the LigaSure to clamp and coagulate and transect, started this way, freed up the midline. This procedure took me almost 3 hours and more than 2 hours of it was just taking down adhesions. Once the adhesions from the midline were taken down, then I elected to place a hand port, tried to do this with a hand-assisted laparoscopic colon resection. Placed the hand port and then used my hand to help hold intestine out of thee way and then used the LigaSure to keep taking this down. Unfortunately, there were more adhesions and it was all stuck down in the pelvis. At this point, I then elected to remove the hand port to see we could bring this up, but we could not, so I then had to extend this incision and switch to an open exploration. Again continued lysing adhesions, removing the intestine from the pelvis and freeing everything up. Once we were free everything up, the rest of the procedure went relatively easily, able to get the small intestine out of the pelvis. Once this was out of the pelvis, then able to run the small intestine towards the terminal ileum and cecum, felt like there was almost like a mass or stricture right where the terminal ileum meets the cecum. I elected to remove a portion of the terminal ileum. I made a defect in the mesentery and came across the terminal ileum with a MELVIN 55 clamped and held for 30 seconds then transected and then came across the mesentery with LigaSure, clamping, coagulating and transecting, coming across the mesentery of the distal terminal ileum as well as the cecum and then across the portion of the cecum where it looked good, did use another MELVIN 55, clamped and held for 30 seconds and then transected. I then freed up the ascending colon along the gutter and the white line of Toldt. It was a little bit difficult because the patient had an open right nephrectomy, so this was little bit scarred down, so took this down, carefully pull this towards this midline using blunt dissection as well as with Bovie electrocautery and once the ascending colon was freed up, then made a small incision right along the tinea of the ascending colon with a Bovie electrocautery and then on the antimesenteric border of the terminal ileum made another hole, placed a MELVIN 55 on either side of these and then brought this together, creating a [id number] functionally end-to-end anastomosis. Then, using Allises and Babcocks closed this colo-enterotomy and then below this, placed a TA 90, clamped and then held for 30 seconds and then fired the ike, cut the distal portion off and removed this, passed this off the table. There was no spillage of any fecal material during this time, I used a 3-0 Vicryl popoff to do a crotch suture and then placed this anastomosis down in the right lower quadrant and laid in nicely. Rest of the intestine was run, looked good. No other obvious masses. Copiously irrigated with normal saline, suctioned this out. I then elected to close the incision closing with a #1 double stranded suture, one from the superior portion and one from the inferior portion running together and meet in the middle and then tying. Copiously irrigated the midline incision with normal saline and then reinsufflated the abdomen. The midline incision looked great, had taken down some fat and hernia sac out of the incarcerated incisional hernia. Looked like the one in the midline was taken care of with the closure. Abdomen looked good. Insight looked good. There is no bleeding and at this point, I then removed the 5 mm port as well as the 11 mm port, closed the fascia of the left upper quadrant incision with 0 Vicryl [id number] suture. Copiously irrigated all incisions with normal saline and then closed the skin with ike. Area was cleaned and dried. Pressure dressing was placed and then anesthesia did the TAP blocks. The patient tolerated the procedure well. She was then transferred to recovery room in stable condition. Sponge, instrument and needle counts were correct at the end of the case. Dr. Perez assisted on this case. He helped to identify anatomy, hold anatomy out of the way and helped close the incisions. Job ID: [id number] DocumentID: [id number] Dictated Date: 08/04/2017 17:24:42 Entertainer & Comic Date: 08/05/2017 01:13:31 Dictated By: DO NATALIA ROBERT
[2017-08-05] MEDS: ceFAZolin 2 GM IV Premixed 50 ML IV SCH (03:06)
[2017-08-05] MEDS: metroNIDAZOLE 500MG/100ML IVPB 100 ML IV SCH (03:06)
[2017-08-05 04:00] VITALS: BP 125/76
[2017-08-05 08:00] VITALS: BP 124/73
[2017-08-05] MEDS: NS IV 1000 ML 1,000 ML IV SCH ×3 (08:20→17:24)
[2017-08-05] MEDS: PANTOPRAZOLE 40 MG/10 ML (PROTONIX) VIAL IVP SCH (08:21)
[2017-08-05] MEDS: ONDANSETRON 4 MG/2 ML (SDV) Z0FRAN IV PRN ×2 (08:22→23:28)
[2017-08-05] MEDS: morphine INJ 10 MG/ML 1ML (SYR OR VIAL) IVP PRN ×2 (08:43→23:26)
--- NOTE | 2017-08-05 09:44 | Anesthesia-General Post-Op ---
General Patient Condition Mental Status/LOC: Same as Preop Cardiovascular: Satisfactory Nausea/Vomiting: Absent Respiratory: Satisfactory Pain: Controlled Complications: Absent Post Op Complications Complications None Follow Up Care/Instructions Patient Instructions None needed. Anesthesia/Patient Condition Patient Condition Patient is doing well, no complaints, stable vital signs, no apparent adverse anesthesia problems. No complications reported per nursing. D/C home per [facility] Criteria: No DANGELO SOLO CRNA Aug 05, 2017 09:44
[2017-08-05 12:00] VITALS: BP 132/77
--- NOTE | 2017-08-05 12:27 | Progress Note ---
Subjective Time Seen by Provider: 12:02 Subjective/Events-last exam Pt seen and examined, has a moderate amount of pain and some nausea. She thinks the nausea is from the morphine; she is tolerating clears right now. No flatus or BM. Review of Systems General: No Chills, No Night Sweats Pulmonary: No Cough Cardiovascular: No: Chest Pain Gastrointestinal: Nausea; No: Vomiting Objective Exam Vital Signs Date Time Temp Pulse Resp B/P (MAP) Pulse Ox O2 Delivery O2 Flow Rate FiO2 08/05/17 08:00 99.1 91 16 124/73 (90) 91 Nasal Cannula 2.00 08/05/17 07:15 93 Room Air 08/05/17 04:00 99.2 91 16 125/76 (92) 97 Nasal Cannula 2.00 08/04/17 23:45 99.1 90 18 132/79 (96) 99 Nasal Cannula 2.00 08/04/17 20:35 Nasal Cannula 2.00 08/04/17 19:52 98.5 89 16 128/79 (95) 96 Nasal Cannula 2.00 08/04/17 15:44 98.0 90 14 116/73 (87) 95 Nasal Cannula 2.00 I & O 08/05/17 07:00 Intake Total 6350 ml Output Total 1700 ml Balance 4650 ml Capillary Refill : Less Than 3 Seconds General Appearance: WD/WN, Mild Distress HEENT: Moist Mucous Membranes; No Pale Conjunctivae (L), No Pale Conjunctivae ( R), No Scleral Icterus (L), No Scleral Icterus (R) Neck: No Thyromegaly Respiratory: Chest Non Tender, Lungs Clear, Normal Breath Sounds, No Accessory Muscle Use, No Respiratory Distress Cardiovascular: Regular Rate, Rhythm, No Edema, No Murmur, Normal Peripheral Pulses Gastrointestinal: tenderness (mostly at incision site) Extremity: No Calf Tenderness Neurologic/Psychiatric: Oriented x3 Skin: Normal Color, Warm/Dry Results Lab Microbiology 08/03/17 MRSA Screen - Final, Complete Assessment/Plan Assessment/Plan Assessment/Plan S/P Partial bowel resection with primary anastomosis Arthritis Polycystic Kidney dz - s/p right nephrectomy Incarcerated Ventral/Incisional hernia Pt encouraged to ambulate and use IS; clear liquids as tolerated. Will add Toradol for pain; won't slow down bowel function. Clinical Quality Measures DVT/VTE Risk/Contraindication: Risk Factor Score Per Nursin RFS Level Per Nursing on Admit: 1=Low/No VTE PPX NORBERT COE DO Aug 05, 2017 12:27
[2017-08-05] MEDS: KETOROLAC 15 MG/ML VIAL IVP SCH ×2 (13:04→18:14)
[2017-08-05 15:45] VITALS: BP 105/55
[2017-08-05] MEDS: ENOXAPARIN 40 MG/0.4 ML (LOVENOX) SYR SC SCH (15:56)
[2017-08-05 19:55] VITALS: BP 112/63
[2017-08-05] MEDS: MUPIROCIN 2% OINT 22 GM (BACTROBAN) TUBE TOP SCH (23:29)
[2017-08-06 00:20] VITALS: BP 130/73
[2017-08-06] MEDS: KETOROLAC 15 MG/ML VIAL IVP SCH ×4 (01:16→18:31)
[2017-08-06 04:33] VITALS: BP 123/70
[2017-08-06] MEDS: NS IV 1000 ML 1,000 ML IV SCH (05:40)
[2017-08-06 08:00] VITALS: BP 129/76
[2017-08-06] MEDS: PANTOPRAZOLE 40 MG/10 ML (PROTONIX) VIAL IVP SCH (09:52)
[2017-08-06] MEDS: MUPIROCIN 2% OINT 22 GM (BACTROBAN) TUBE TOP SCH ×2 (09:52→21:49)
[2017-08-06 12:00] VITALS: BP 113/60
--- NOTE | 2017-08-06 13:47 | Progress Note ---
Subjective Time Seen by Provider: 12:10 Subjective/Events-last exam Pt seen and examined, she is tolerating soft diet. Pain mostly controlled. No flatus or BM yet. Review of Systems General: No Chills, No Night Sweats Pulmonary: No Dyspnea, No Cough Cardiovascular: No: Chest Pain Gastrointestinal: Abdominal Pain (mild); No: Nausea, Vomiting Objective Exam Vital Signs Date Time Temp Pulse Resp B/P (MAP) Pulse Ox O2 Delivery O2 Flow Rate FiO2 08/06/17 12:00 98.7 59 18 113/60 (77) 95 Nasal Cannula 2.00 08/06/17 08:55 95 21 08/06/17 08:54 95 Room Air 08/06/17 08:00 98.9 95 16 129/76 (93) 95 Nasal Cannula 2.00 08/06/17 04:33 99.5 101 18 123/70 (87) 92 Room Air 08/06/17 01:16 100.4 08/06/17 00:20 98.2 103 18 130/73 (92) 93 Room Air 08/05/17 21:00 Nasal Cannula 2.00 08/05/17 19:55 98.9 96 18 112/63 (79) 96 Room Air 08/05/17 15:45 98.6 105 18 105/55 (72) 92 Room Air I & O 08/06/17 07:00 Intake Total 1880 ml Output Total 725 ml Balance 1155 ml Capillary Refill : Less Than 3 Seconds General Appearance: WD/WN, Mild Distress HEENT: Moist Mucous Membranes; No Pale Conjunctivae (L), No Pale Conjunctivae ( R), No Scleral Icterus (L), No Scleral Icterus (R) Neck: No Thyromegaly Respiratory: Lungs Clear, Normal Breath Sounds, No Accessory Muscle Use, No Respiratory Distress Cardiovascular: Regular Rate, Rhythm Gastrointestinal: tenderness (mostly at incision site) Extremity: No Calf Tenderness Neurologic/Psychiatric: Oriented x3 Skin: Normal Color, Warm/Dry Results Lab Microbiology 08/03/17 MRSA Screen - Final, Complete Assessment/Plan Assessment/Plan Assessment/Plan S/P Partial bowel resection with primary anastomosis Arthritis Polycystic Kidney dz - s/p right nephrectomy Incarcerated Ventral/Incisional hernia Pt encouraged to ambulate and use IS; soft diet as tolerated. Toradol seems to be controlling the pain. Clinical Quality Measures DVT/VTE Risk/Contraindication: Risk Factor Score Per Nursin RFS Level Per Nursing on Admit: 1=Low/No VTE PPX NORBERT COE DO Aug 06, 2017 13:47
[2017-08-06] MEDS: ENOXAPARIN 40 MG/0.4 ML (LOVENOX) SYR SC SCH (14:42)
[2017-08-06 16:10] VITALS: BP 157/85
[2017-08-06 20:10] VITALS: BP 144/78
[2017-08-07] MEDS: KETOROLAC 15 MG/ML VIAL IVP SCH ×3 (00:03→12:32)
[2017-08-07 00:37] VITALS: BP 124/71
[2017-08-07 04:53] VITALS: BP 143/84
[2017-08-07 08:15] VITALS: BP 137/80
[2017-08-07] MEDS: MUPIROCIN 2% OINT 22 GM (BACTROBAN) TUBE TOP SCH (08:16)
[2017-08-07] MEDS: PANTOPRAZOLE 40 MG/10 ML (PROTONIX) VIAL IVP SCH (08:16)
--- NOTE | 2017-08-07 11:37 | Progress Note ---
Subjective Time Seen by Provider: 11:09 Subjective/Events-last exam Pt seen and examined, she was walking in [place]. Minimal pain. + Flatus, but no BM yet Review of Systems General: No Chills, No Night Sweats Pulmonary: No Dyspnea, No Cough Cardiovascular: No: Chest Pain Gastrointestinal: No: Nausea, Vomiting Objective Exam Vital Signs Date Time Temp Pulse Resp B/P (MAP) Pulse Ox O2 Delivery O2 Flow Rate FiO2 08/07/17 09:00 Room Air 08/07/17 08:15 99.8 87 20 137/80 (99) 95 Room Air 08/07/17 04:53 99.1 88 18 143/84 (103) 97 Room Air 08/07/17 00:37 97.8 100 18 124/71 (88) 96 Room Air 08/06/17 21:00 Nasal Cannula 2.00 08/06/17 20:37 Room Air 08/06/17 20:10 98.9 92 18 144/78 (100) 94 Room Air 08/06/17 16:10 98.9 96 18 157/85 (109) 97 Room Air 08/06/17 12:00 98.7 59 18 113/60 (77) 95 Nasal Cannula 2.00 I & O 08/07/17 07:00 Intake Total 1360 ml Output Total 1650 ml Balance -290 ml Capillary Refill : Less Than 3 SecondsLess Than 3 Seconds General Appearance: WD/WN HEENT: Moist Mucous Membranes; No Pale Conjunctivae (L), No Pale Conjunctivae ( R), No Scleral Icterus (L), No Scleral Icterus (R) Neck: No Thyromegaly Respiratory: Lungs Clear, Normal Breath Sounds, No Accessory Muscle Use, No Respiratory Distress Cardiovascular: Regular Rate, Rhythm Gastrointestinal: soft, tenderness (mostly at incision site and very minimal) Extremity: No Calf Tenderness Neurologic/Psychiatric: Oriented x3 Skin: Normal Color, Warm/Dry Results Lab Microbiology 08/03/17 MRSA Screen - Final, Complete Assessment/Plan Assessment/Plan Assessment/Plan S/P Partial bowel resection with primary anastomosis - 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 Arthritis Polycystic Kidney dz - s/p right nephrectomy Incarcerated Ventral/Incisional hernia Plan to D/C pt home Clinical Quality Measures DVT/VTE Risk/Contraindication: Risk Factor Score Per Nursin RFS Level Per Nursing on Admit: 1=Low/No VTE PPX NORBERT COE DO Aug 07, 2017 11:37
[2017-08-07] MEDS ORDERED: ACHD5005 PO (11:38)
--- NOTE | 2017-08-07 11:40 | Discharge Inst-Surgical ---
Discharge Inst-Surgical Depart Medication/Instructions New, Converted or Re-Newed RX: RX Given to Pt/Family Patient Instructions Follow up Appt: Make appointment for 1 week. Instructions: No lifting greater than 10 pounds. No strenuous activity. May shower in 24 hours, no tub bath or soaking. Use incentive spirometer at home as directed. No Smoking Skin/Wound Care: May remove bandages. You need to leave the ike in place and come in in 7- 10 days to remove them. Symptoms to Report: Appetite Changes, Extremity Discoloration, Numbness/Tingling, Swelling Increased , Bleeding Excessive, Eyesight Changes, Pain Increased, Urine Color Change, Constipation(Persistent), Fever over 101 degree F, Pain/Pressure in chest, Urinating Difficulty, Cough Up/Vomit Blood, Heart Beat Irreg/Pounding, Pain/ Pressure in jaw, Vaginal Bleeding Increase, Cramps in feet or legs, Lightheadedness, Pain/Pressure in shoulder, Diarrhea(Persistent), Memory Changes Suddenly, Questions/Concerns, Weight gain consecutive days, Dizziness/ Fainting, Nausea/Vomiting, Shortness of Breath, Weight gain over 2 pounds If questions or concerns contact your physician Or seek help at emergency department. Activity Activity as Tolerated: Yes Activity Instructions: Avoid Pulling & Pushing, Avoid Stress to Incision Driving Instructions: No Driving/Refer to Dr. Cochran Discharge Diet: No Restrictions Diet After 24 Hours: Clear Liquid if Nauseous If Any Problems/Questions/Issu: Contact Your Physician, Go to Emergency Room Skin/Wound Care Infection Signs and Symptoms: Increased Redness, Foul Odor of Wound, Increased Drainage, Skin Itchy or Has a Rash, Increased Swelling, Temperature Above 101 F Bathing Instructions: Shower Stitches/[place]/Dermabond Dis: Care of NORBERT Rader DO Aug 07, 2017 11:40
--- NOTE | 2017-08-22 12:02 | Discharge Summary ---
Diagnosis/Chief Complaint Date of Admission Aug 03, 2017 at 14:30 Date of Discharge Aug 07, 2017 at 13:15 Admission Diagnosis Admission Diagnosis PSBO r/o stricture Arthritis Polycystic Kidney dx Incarcerated Ventral/Incisional Hernia Discharge Diagnosis Stricture of Terminal Ileum and Cecum, secondary to Carcinoid Tumor Arthritis Polycystic Kidney dz Incarcerated Ventral/Incisional hernia Reason Hospital Visit Pt is being admitted for PSBO. HPI per ED: Patient is a 46-year-old female who presents to the emergency room with complaints of left lower abdominal pain with nausea that started yesterday evening. She reports that she has a history of diverticulitis and colitis. She denies vomiting, fevers, constipation, but reports she's had loose stools. Timing/Duration: 1-2 Days Severity/Quality: Moderate Location: LLQ Radiation: No Radiation Modifying Factors: Improves With Movement Associated Symptoms: Nausea/Vomiting When I spoke to pt she states she has had this pain for over 4 years; always starts on the left side. She is not really sure what brings this on and has been told in the past that she has "bowel inflammation". She states she goes to the ER at least 4 times a year because the pain is so bad and her family piped in and said she has pain 2-3 times a month. She has had multiple CT's over the past 4 years. She has hx of multiple abdominal surgeries. She thinks her stomach is a little bloated. Discharge Summary Procedures: Partial Colon Resection Discharge Physical Examination Allergies: Coded Allergies: Sulfa (Sulfonamide Antibiotics) (Verified Allergy, Mild, RASH, 11/05/12) acetaminophen (Verified Adverse Reaction, Mild, N/V, 11/05/12) oxycodone HCl (Verified Adverse Reaction, Mild, N/V, 11/05/12) General Appearance: Alert, Oriented X3 Respiratory: Clear to Auscultation Cardiovascular: Regular Rate, Normal S1, Normal S2 Hospital Course Patient presented to the hospital the with possible partial small bowel obstruction versus complete bowel obstruction. Patient been having this problem for him over for 5 years and CAT scans continued to show the same thing. I suspected that there was a stricture and this was not just a partial small bowel obstruction; subsequently she was taken to surgery on August 04. At surgery the patient is found to have a stricture secondary to a look felt like a mass. She recovered from surgery well and was transferred from room to the floor. Slowly over the next few days patient slowly started increasing diet started getting pain under control she was using incentive spirometer walking around. Pain was finally controlled with oral medications and she was having bowel movements and tolerating a diet and subsequently discharged home on August 07. I did tell her on the day she was leaving that unfortunately found carcinoid tumor but that all of the pathology was not back and we will go over this more when I saw her in the office. Discharge Instructions to patient/family Please see electronic discharge instructions given to patient. Discharge Medications Reviewed and agree with Discharge Medication list on patient's Discharge Instruction sheet Clinical Quality Measures DVT/VTE Risk/Contraindication: Risk Factor Score Per Nursin RFS Level Per Nursing on Admit: 1=Low/No VTE PPX NORBERT COE DO Aug 22, 2017 12:02
== END 2017-08-07 13:15 | disposition home or self-care (01) | DRG 330 ==
LOC: EDUNIT# 11:21 → ER 11:23 → 4TH 14:30 → UNDOADMOB 14:30 → UNDODISOB 08-07 13:15
PROVIDERS: ADMIT Surgery; ATTEND Surgery
PROC: 0DBB0ZZ Excision of Ileum, Open Approach (ICD-10-PCS; 2017-08-04)
PROC: 0WQF0ZZ Repair Abdominal Wall, Open Approach (ICD-10-PCS; 2017-08-04)
PROC: 0DBH0ZZ Excision of Cecum, Open Approach (ICD-10-PCS; principal; 2017-08-04 11:08)
DX: C7A.012 Malignant carcinoid tumor of the ileum (principal); K56.690 Other partial intestinal obstruction; C7B.04 Secondary carcinoid tumors of peritoneum; C7B.09 Secondary carcinoid tumors of other sites; K43.0 Incisional hernia with obstruction, without gangrene; M19.90 Unspecified osteoarthritis, unspecified site; Z90.5 Acquired absence of kidney
CPT/HCPCS: 36415; 74177; 80053; 81000; 82150; 83690; 84703; 85007; 85025; 85027; 87081; 88302; 88309; 88341; 88342; 94760; 96361; 96374; 96375; 96376

== ENCOUNTER → 2017-08-15 | Outpatient (CLI) | payer OTHER ==
[~2017-08-15] MED LIST changes: +ACHD5005 PO; +CHOL5000 PO; +CLON1TAB4 PO
== END ==
LOC: LAB 11:01
PROVIDERS: ATTEND Surgery
DX: C7A.00 Malignant carcinoid tumor of unspecified site (principal)
CPT/HCPCS: 36415; 86316

== ENCOUNTER → 2017-09-12 | Outpatient (CLI) | payer OTHER ==
[~2017-09-12] MED LIST changes: +CATHETER FLUSH 10 ML SYR IV PRN; +IOHEXOL 350 MG/ML 100 ML (OMNIPAQUE 350) VIAL IV ONE; +NS 100 ML (IVPB) BAG IV ONE; +NS 250 ML (IVPB) BAG IV ONE
--- NOTE | 2017-09-12 11:53 | Diagnostic Imaging Report ---
PROCEDURE: CT chest with contrast only. TECHNIQUE: Multiple contiguous axial images were obtained through the chest after administration of intravenous contrast. DATE: September 12, 2017. COMPARISON: CT abdomen and pelvis August 03, 2017. INDICATION: 46-year-old female, history of malignant carcinoid tumor of the cecum. FINDINGS: In the right middle lobe on axial image 32, there is a noncalcified 4 mm pulmonary nodule. There is no additional identified pulmonary nodule. There are mild linear opacities in the right lower lobe and left upper lobe likely reflecting mild atelectasis and/or scarring. There is no additional focal airspace consolidation. The central airways are patent. There is no pneumothorax. There is no pleural effusion. There is no identified pulmonary embolus. The main pulmonary artery is normal in caliber. The heart is not enlarged. There is no pericardial effusion. There are atherosclerotic calcifications noted. There is no identified abnormally enlarged mediastinal, hilar, or axillary lymph node which meets CT size criteria for adenopathy. The patient is status post cholecystectomy. The right kidney appears surgically absent. There is stranding within the subcutaneous fat of anterior abdominal wall partially visualized on axial image 64 and adjacent sequential images. There is partially visualized left-sided hydronephrosis. There is no identified bone lesion to suggest bone metastasis. IMPRESSION: CT CHEST. 1. 4 mm right middle lobe pulmonary nodule. Recommend comparison with prior CT imaging of the chest if available to evaluate for potential stability. If no comparison imaging is available, recommend short-term followup exam. 2. No otherwise identified lesion which potentially may reflect metastatic disease at the level of the chest. Dictated by: Dictated on workstation # [id number]
== END ==
LOC: RAD 10:11
PROVIDERS: ATTEND Internal Medicine Hematology & Oncology
DX: C7A.021 Malignant carcinoid tumor of the cecum (principal); R91.1 Solitary pulmonary nodule
CPT/HCPCS: 71260

== ENCOUNTER 2017-10-11 10:58 | Outpatient (RCR) | payer OTHER ==
[~2017-10-11 10:58] MED LIST changes: -CATHETER FLUSH 10 ML SYR IV PRN; +CLON1TAB13 PO; -CLON1TAB4 PO; -IOHEXOL 350 MG/ML 100 ML (OMNIPAQUE 350) VIAL IV ONE; -NS 100 ML (IVPB) BAG IV ONE; -NS 250 ML (IVPB) BAG IV ONE
[2017-10-16] MEDS ORDERED: CIPR500T4 PO (11:08)
[2017-10-16] MEDS ORDERED: METR500T21 PO (11:08)
[2017-10-17] MEDS ORDERED: ONDA4TAB8 PO (03:30)
[2017-10-17] MEDS ORDERED: PANT40TA2 PO (03:30)
[2017-11-13] MEDS ORDERED: DULO60CA58 PO (11:21)
[2017-11-13] MEDS ORDERED: PANT40TA3 PO (11:21)
[2017-11-17] MEDS ORDERED: TRAM50TA2 PO (12:19)
== END 2017-11-28 | disposition home or self-care (01) ==
LOC: ONC 10:58
PROVIDERS: ATTEND Internal Medicine Hematology & Oncology
DX: C7A.012 Malignant carcinoid tumor of the ileum (principal); C7B.04 Secondary carcinoid tumors of peritoneum; C7B.09 Secondary carcinoid tumors of other sites; Z90.5 Acquired absence of kidney
CPT/HCPCS: 99213; 99214

== ENCOUNTER 2017-10-12 18:42 | Inpatient (IN) | payer OTHER ==
[~2017-10-12] VITALS: Ht 139.7 cm; Wt 56.0 kg
[2017-10-12] MEDS ORDERED: NS IV 1000 ML 1,000 ML IV ONE (19:13)
[2017-10-12] MEDS ORDERED: fentaNYL INJECTION 100 MCG/2 ML AMP IVP ONE ×2 (19:15→20:15)
[2017-10-12 19:27] LABS: BASOPHILS % (AUTO) 0 % (0-10); EOSINOPHILS % (AUTO) 0 % (0-10); HEMATOCRIT 38 % (35-52); HEMOGLOBIN 13.2 G/DL (11.5-16.0); LYMPHOCYTES # (AUTO) 0.7 X 10^3 (1.0-4.0); LYMPHOCYTES % (AUTO) 5 % (12-44); MEAN CORPUSCULAR HEMOGLOBIN 30 PG (25-34); MEAN CORPUSCULAR HGB CONC 35 G/DL (32-36); MEAN CORPUSCULAR VOLUME 86 FL (80-99); MEAN PLATELET VOLUME 9.5 FL (7.4-10.4); MONOCYTES # (AUTO) 0.6 X 10^3 (0.0-1.0); MONOCYTES % (AUTO) 5 % (0-12); NEUTROPHILS # (AUTO) 11.7 X 10^3 (1.8-7.8); NEUTROPHILS % (AUTO) 90 % (42-75); PLATELET COUNT 222 10^3/uL (130-400); RED BLOOD COUNT 4.37 10^6/uL (4.35-5.85); RED CELL DISTRIBUTION WIDTH 13.1 % (10.0-14.5)
[2017-10-12 19:49] LABS: ALANINE AMINOTRANSFERASE 84 U/L (0-55); ALBUMIN 4.2 GM/DL (3.2-4.5); ALKALINE PHOSPHATASE 156 U/L (40-136); BILIRUBIN,TOTAL 0.6 MG/DL (0.1-1.0); BUN/CREATININE RATIO 21; CALCIUM 9.6 MG/DL (8.5-10.1); CARBON DIOXIDE 22 MMOL/L (21-32); CHLORIDE 105 MMOL/L (98-107); CREATININE SERUM 0.85 MG/DL (0.60-1.30); GFR ESTIMATED > 60; GLUCOSE 150 MG/DL (70-105); LIPASE 35 U/L (8-78); POTASSIUM 4.1 MMOL/L (3.6-5.0); SODIUM 139 MMOL/L (135-145); TOTAL PROTEIN 6.5 GM/DL (6.4-8.2)
[2017-10-12 19:53] LABS: PROTHROMBIN TIME PATIENT 13.2 SEC (12.2-14.7)
[2017-10-12 19:54] LABS: BAND NEUTROPHILS 16 %; BASOPHILS % (MANUAL) 2 %; EOSINOPHILS % (MANUAL) 0 %; LYMPHOCYTES % (MANUAL) 5 %; METAMYELOCYTES % 1 %; MONOCYTES % (MANUAL) 5 %; NEUTROPHILS % (MANUAL) 71 %; RBC MORPH NORMAL
--- NOTE | 2017-10-12 19:55 | ED Abdominal Pain ---
General Chief Complaint: Abdominal/GI Problems Stated Complaint: R SIDE ABD PAIN Nursing Triage Note: PT AMB TO ROOM # W/O DIFFICULTY. A&OX4. CO SEVERE RT LOWER QUADRANT ABD PAIN THAT BEGAN EARLY THIS AFTERNOON WHILE AT WORK. PT TENDER UPON TOUCH TO AREA. REPORTS NAUSEA. REPORTS LBM WAS THIS MORNING. 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 UPON ENETERING ED PT NOTED TO HAVE 102.21 FEVER. Sepsis Screen: Possible Sepsis Risk Source of Information: Patient Exam Limitations: No Limitations (KUSUM VASQUEZ MED STUDENT) History of Present Illness Date Seen by Provider: Oct 12, 2017 Time Seen by Provider: 19:30 Initial Comments Patient is a 46 year old female who presents to the ED for RLQ abdominal pain x6 hours duration. She states that it started early this afternoon while at work and has worsened since the onset. Patient admits to some nausea without vomiting that began 2-3 hours ago. She has had 3 bowel movements today with them progressively getting more watery. 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 Coe about 2 months ago. She states that she is not receiving any treatment for the cancer at this time and sees Dr. Bauman. Patient states that the tumor is stage 4 and she has some residual tumor in her abdomen and also has a suspicious spot in her lung. 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) Modifying Factors: Worsens With Movement, Worsens With Palpation Associated Symptoms: Fever/Chills, Nausea/Vomiting (KUSUM VASQUEZ MED STUDENT ) Allergies and Home Medications Allergies Coded Allergies: Sulfa (Sulfonamide Antibiotics) (Verified Allergy, Mild, RASH, 11/05/12) acetaminophen (Verified Adverse Reaction, Mild, N/V, 11/05/12) oxycodone HCl (Verified Adverse Reaction, Mild, N/V, 11/05/12) Home Medications Alendronate Sodium 70 Mg Tablet, 70 MG PO Mo, (Reported) Cholecalciferol (Vitamin D3) 5,000 Unit Capsule, 5,000 UNIT PO DAILY, (Reported) Clonazepam 1 Mg Tablet, 1 MG PO HS, (Reported) Diclofenac Sodium 75 Mg Tablet.dr, 75 MG PO BID, (Reported) Duloxetine HCl 30 Mg Capsule., 30 MG PO HS, (Reported) Hydrocodone Bit/Acetaminophen 1 Tab Tab, 1 TAB PO Q6H PRN Prescribed by: NORBERT COE on 08/07/17 1138 Patient Home Medication List Home Medication List Reviewed: Yes (ROSAMARIA CALIXTO MD) Review of Systems Review of Systems Constitutional: fever EENTM: No Blurred Vision, No Double Vision Respiratory: No Symptoms Reported Cardiovascular: No Symptoms Reported Gastrointestinal: Abdominal Pain (RLQ), Nausea; Denies Vomiting Genitourinary: No Symptoms Reported Musculoskeletal: no symptoms reported Skin: no symptoms reported Psychiatric/Neurological: Denies Headache, Denies Weakness Endocrine: Denies Excessive Sweating, Denies Flushing Hematologic/Lymphatic: No Symptoms Reported (KUSUM VASQUEZ) Past Xzlbjmo-Rqxocz-Ivohzc Hx Patient Social History Recent Foreign Travel: No Contact w/Someone Who Travel: No Recent Infectious Disease Expo: No Recent Hopitalizations: No Physical Abuse: No Sexual Abuse: No (KUSUM VASQUEZ) Immunizations Up To Date Date of Influenza Vaccine: Nov 06, 2016 (KUSUM VASQUEZ) Seasonal Allergies Seasonal Allergies: No (KUSUM VASQUEZ) Past Medical History Surgeries: Yes (RIGHT NEPHRECTOMY--" KIDNEY", VENTRAL HERNIA REPAIR, BMT'S , ) Abdominal, Adenoidectomy, Appendectomy, Ear Surgery, Gallbladder, Nephrectomy, Tonsillectomy Respiratory: No Cardiac: No Neurological: No Reproductive Disorders: Yes (NICHOLS'S SYNDROME) Genitourinary: Yes (S/P RIGHT NEPHRECTOMY FOR NON-FUNCTIONING KIDNEY) Kidney Infection, Bladder Infection, Kidney Stones, Polycystic Kidney Disease Gastrointestinal: Yes (HERNIA REPAIR, HEPATITIS A) Abdominal Hernia, Colitis, Hepatitis, Gall Bladder Disease, Irritable Bowel Musculoskeletal: Yes Arthritis Endocrine: Yes (NICHOLS'S SYNDROME) HEENT: Yes Chronic Ear Infection, Tonsilitis Hearing Impairment: Hard of Hearing Cancer: No Psychosocial: Yes Anxiety, Depression Integumentary: No Blood Disorders: No (KUSUM VASQUEZ STUDENT) Family Medical History Cancer, Hypertension (KUSUM VASQUEZ) Physical Exam Vital Signs Vital Signs - First Documented 10/12/17 18:55 Temp 102.1 Pulse 101 Resp 18 B/P (MAP) 124/72 (89) Pulse Ox 99 O2 Delivery Room Air (ROSAMARIA CALIXTO MD) Vital Signs Capillary Refill : Less Than 3 Seconds (KUSUM VASQUEZ MED STUDENT) Height/Weight/BMI Height: 4'7.00" Weight: 121lbs. 0.0oz. 54.251465ks; 27.9 BMI Method:Stated General Appearance: moderate distress HEENT: PERRL/EOMI, pharynx normal Neck: non-tender, full range of motion, supple Respiratory: lungs clear, normal breath sounds, no respiratory distress, no accessory muscle use Cardiovascular: regular rate, rhythm, no edema, no gallop, no JVD, no murmur Gastrointestinal: normal bowel sounds, guarding (RLQ), tenderness (RLQ) Rectal: deferred Extremities: non-tender, normal inspection, no pedal edema Neurologic/Psychiatric: alert, normal mood/affect, oriented x 3 Skin: normal color, warm/dry (KUSUM VASQUEZ MED STUDENT) Focused Exam Lactate Level 10/12/17 19:16: Lactic Acid Level 2.33*H (ROSAMARIA CALIXTO MD) Lactic Acid Level Laboratory Tests Test 10/12/17 19:16 Lactic Acid Level 2.33 MMOL/L (0.50-2.00) *H (ROSAMARIA CALIXTO MD) Progress/Results/Core Measures Results/Orders Lab Results Laboratory Tests Test 10/12/17 19:16 10/12/17 20:05 Range/Units White Blood Count 13.0 H 4.3-11.0 10^3/uL Red Blood Count 4.37 4.35-5.85 10^6/uL Hemoglobin 13.2 11.5-16.0 G/DL Hematocrit 38 35-52 % Mean Corpuscular Volume 86 80-99 FL Mean Corpuscular Hemoglobin 30 25-34 PG Mean Corpuscular Hemoglobin Concent 35 32-36 G/DL Red Cell Distribution Width 13.1 10.0-14.5 % Platelet Count 222 130-400 10^3/uL Mean Platelet Volume 9.5 7.4-10.4 FL Neutrophils (%) (Auto) 90 H 42-75 % Lymphocytes (%) (Auto) 5 L 12-44 % Monocytes (%) (Auto) 5 0-12 % Eosinophils (%) (Auto) 0 0-10 % Basophils (%) (Auto) 0 0-10 % Neutrophils # (Auto) 11.7 H 1.8-7.8 X 10^3 Lymphocytes # (Auto) 0.7 L 1.0-4.0 X 10^3 Monocytes # (Auto) 0.6 0.0-1.0 X 10^3 Eosinophils # (Auto) 0.0 0.0-0.3 10^3/uL Basophils # (Auto) 0.0 0.0-0.1 10^3/uL Neutrophils % (Manual) 71 % Lymphocytes % (Manual) 5 % Monocytes % (Manual) 5 % Eosinophils % (Manual) 0 % Basophils % (Manual) 2 % Metamyelocytes % 1 % Band Neutrophils 16 % Blood Morphology Comment NORMAL Prothrombin Time 13.2 12.2-14.7 SEC INR Comment 1.0 0.8-1.4 Activated Partial Thromboplast Time 31 24-35 SEC Sodium Level 139 135-145 MMOL/L Potassium Level 4.1 3.6-5.0 MMOL/L Chloride Level 105 98-107 MMOL/L Carbon Dioxide Level 22 21-32 MMOL/L Anion Gap 12 5-14 MMOL/L Blood Urea Nitrogen 18 7-18 MG/DL Creatinine 0.85 0.60-1.30 MG/DL Estimat Glomerular Filtration Rate > 60 BUN/Creatinine Ratio 21 Glucose Level 150 H 70-105 MG/DL Lactic Acid Level 2.33 *H 0.50-2.00 MMOL/L Calcium Level 9.6 8.5-10.1 MG/DL Corrected Calcium 9.4 8.5-10.1 MG/DL Total Bilirubin 0.6 0.1-1.0 MG/DL Aspartate Amino Transf (AST/SGOT) 36 H 5-34 U/L Alanine Aminotransferase (ALT/SGPT) 84 H 0-55 U/L Alkaline Phosphatase 156 H 40-136 U/L Total Protein 6.5 6.4-8.2 GM/DL Albumin 4.2 3.2-4.5 GM/DL Lipase 35 8-78 U/L Urine Color YELLOW Urine Clarity CLEAR Urine pH 5 5-9 Urine Specific Sparkman 1.020 1.016-1.022 Urine Protein NEGATIVE NEGATIVE Urine Glucose (UA) NEGATIVE NEGATIVE Urine Ketones NEGATIVE NEGATIVE Urine Nitrite NEGATIVE NEGATIVE Urine Bilirubin NEGATIVE NEGATIVE Urine Urobilinogen NORMAL NORMAL MG/DL Urine Leukocyte Esterase 1+ H NEGATIVE Urine RBC (Auto) NEGATIVE NEGATIVE Urine RBC NONE /HPF Urine WBC 2-5 /HPF Urine Squamous Epithelial Cells 2-5 /HPF Urine Crystals NONE /LPF Urine Bacteria TRACE /HPF Urine Casts NONE /LPF Urine Mucus SMALL H /LPF Urine Culture Indicated NO (ROSAMARIA CALIXTO MD) My Orders Orders - ROSAMARIA CALIXTO MD Cbc With Automated Diff (10/12/17 19:10) Comprehensive Metabolic Panel (10/12/17 19:10) Blood Culture (10/12/17 19:10) Sputum Culture (10/12/17 19:10) Urinalysis (10/12/17 19:10) Urine Culture (10/12/17 19:10) Protime With Inr (10/12/17 19:10) Partial Thromboplastin Time (10/12/17 19:10) Chest 1 View, Ap/Pa Only (10/12/17 19:10) Saline Lock/Iv-Start (10/12/17 19:10) Saline Lock/Iv-Start (10/12/17 19:10) Vital Signs Adult Sepsis Patie Q15M (10/12/17 19:10) O2 (10/12/17 19:10) Remove Rings In Anticipation O (10/12/17 19:10) Lactic Acid Analyzer (10/12/17 19:10) Lipase (10/12/17 19:10) Fentanyl Injection (Sublimaze Injection (10/12/17 19:15) Saline Lock/Iv-Start (10/12/17 19:13) Ns Iv 1000 Ml (Sodium Chloride 0.9%) (10/12/17 19:13) Manual Differential (10/12/17 19:16) Ct Chest/Abdomen/Pelvis W (10/12/17 19:52) Fentanyl Injection (Sublimaze Injection (10/12/17 20:15) Iohexol Injection (Omnipaque 350 Mg/Ml 1 (10/12/17 20:30) Piperacillin Sodium/Tazobactam (Zosyn Vi (10/12/17 20:45) (ROSAMARIA CALIXTO MD) Medications Given in ED Current Medications Medications Dose Ordered Sig/Nestor Route Start Time Stop Time Status Last Admin Dose Admin Fentanyl Citrate 50 mcg ONCE ONCE IVP 10/12/17 19:15 10/12/17 19:16 DC 10/12/17 19:25 50 MCG Fentanyl Citrate 50 mcg ONCE ONCE IVP 10/12/17 20:15 10/12/17 20:16 DC 10/12/17 20:41 50 MCG Iohexol 100 ml ONCE ONCE IV 10/12/17 20:30 10/12/17 20:31 DC 10/12/17 20:27 100 ML Sodium Chloride 1,000 ml @ 0 mls/hr Q0M ONCE IV 10/12/17 19:13 10/12/17 19:14 DC 10/12/17 19:25 0 MLS/HR (ROSAMARIA CALIXTO MD) Vital Signs/I&O 10/12/17 18:55 Temp 102.1 Pulse 101 Resp 18 B/P (MAP) 124/72 (89) Pulse Ox 99 O2 Delivery Room Air (ROSAMARIA CALIXTO MD) Blood Pressure Mean: 89 Progress Progress Note : Time: 20:53 Progress Note This patient was interviewed, seen, and examined by me personally along with Kusum Vasquez, MS4. I agree with her history, exam, assessment, plan, and documentation with the following additions. This patient had a bowel resection performed in July of this year by Dr. Coe. CT demonstrates significant inflammatory changes near the site of the anastomosis. Zosyn was initiated. Patient is presumed to be septic from an intra-abdominal source. Dr. Coe is present in the emergency room to review CT scan and assess patient himself. Patient will be admitted to his service. Exam: Gen.: Alert, oriented, mild distress from abdominal pain HEENT: Normocephalic and atraumatic, mucous membranes moist Heart: Regular rate and rhythm without murmur Chest: Clear to auscultation bilaterally with normal effort Abdomen: Soft, normal bowel sounds, significant tenderness in the right abdomen including tenderness to percussion, area of greatest tenderness is in the right lower quadrant Extremities: Normal to inspection Neuro/psych: Alert, oriented, mood and affect appropriate for circumstances (ROSAMARIA CALIXTO MD) Diagnostic Imaging Diagonstic Imaging: Xray Plain Films/CT/US/NM/MRI: chest Comments Chest x-ray viewed by me and report reviewed. See report below: NAME: DOV LOCKHART [facility] REC#: [id number] PT STATUS: REG ER : 1970 PHYSICIAN: ROSAMARIA CALIXTO MD ADMIT DATE: 10/12/17/ER Draft Date of Exam:10/12/17 CHEST 1 VIEW, AP/PA ONLY EXAM: CHEST 1 VIEW, AP/PA ONLY INDICATION: Abdominal pain. FINDINGS: Cardiomegaly with normal central pulmonary vascularity. No focal pulmonary opacity, pleural effusion or pneumothorax. No acute osseous findings. IMPRESSION: Cardiomegaly. Chest otherwise negative. Dictated on workstation # [id number] Dict: 10/12/172002 Trans: 10/12/[address] [place] [address] [id number] Interpreted by: JOHANA SALCIDO MD Diagonstic Imaging: CT Plain Films/CT/US/NM/MRI: chest, abdomen, pelvis Comments 20:48- CT scan reviewed along with Dr. Coe. Radiologist report is pending. There is a significant amount of inflammation in the right abdomen near the anastomosis site. She will be started on Zosyn and admitted to Dr. Coe's service. The [facility] services will be consulted for assistance with medical management. (ROSAMARIA CALIXTO MD) Departure Communication (Admissions) Time/Spoke to Admitting Phy: 20:30 Dr. Coe Time/Spoke to Consulting Phy: 21:00 Dr. Dockery (ROSAMARIA CALIXTO MD) Impression Primary Impression: Sepsis Qualified Codes: A41.9 - Sepsis, unspecified organism Additional Impression: Abdominal pain Qualified Codes: R10.31 - Right lower quadrant pain Disposition: ADMITTED INPATIENT Condition: Against Medical Advice Admissions Decision to Admit Reason: Admit from ER (General) Decision to Admit/Date: Oct 12, 2017 Time/Decision to Admit Time: 20:30 (ROSAMARIA CALIXTO MD) Departure-Patient Inst. Referrals: [facility] (PCP) Primary Care Physician SUMMER HUNG APRN (Family) Primary Care Physician KUSUM VASQUEZ STUDENT Oct 12, 2017 19:55 ROSAMARIA CALIXTO MD Oct 12, 2017 20:11
--- NOTE | 2017-10-12 20:08 | Diagnostic Imaging Report ---
EXAM: CHEST 1 VIEW, AP/PA ONLY INDICATION: Abdominal pain. FINDINGS: Cardiomegaly with normal central pulmonary vascularity. No focal pulmonary opacity, pleural effusion or pneumothorax. No acute osseous findings. IMPRESSION: Cardiomegaly. Chest otherwise negative. Dictated by: Dictated on workstation # [id number]
[2017-10-12 20:28] LABS: BILIRUBIN,URINE NEGATIVE (NEGATIVE); CLARITY,URINE CLEAR; COLOR,URINE YELLOW; GLUCOSE, URINE (UA) NEGATIVE (NEGATIVE); KETONES,URINE NEGATIVE (NEGATIVE); LEUKOCYTE ESTERASE ,URINE 1+ (NEGATIVE); NITRITE,URINE NEGATIVE (NEGATIVE); PH,URINE 5 (5-9); PROTEIN,URINE NEGATIVE (NEGATIVE); UROBILINOGEN,URINE NORMAL (NORMAL)
[2017-10-12] MEDS ORDERED: IOHEXOL 350 MG/ML 100 ML (OMNIPAQUE 350) VIAL IV ONE (20:30)
[2017-10-12 20:43] LABS: BACTERIA,URINE TRACE /HPF
[2017-10-12] MEDS ORDERED: PIPERACILLIN SODIUM/TAZOBACTAM 4.5 GM in NS (IVPB) 100 ML IV ONE (20:45)
[2017-10-12] MEDS ORDERED: morphine INJ 10 MG/ML 1ML (SYR OR VIAL) IVP PRN (21:15)
--- NOTE | 2017-10-12 21:18 | Diagnostic Imaging Report ---
PROCEDURE: CT chest, abdomen, and pelvis with contrast. TECHNIQUE: Multiple contiguous axial images were obtained through the chest, abdomen, and pelvis after the administration of intravenous contrast. INDICATION: Right lower quadrant abdominal pain. Stage IV carcinoid. COMPARISON: Octreotide scan 10/03/2017. CT chest with IV contrast 09/12/2017. CT abdomen and pelvis with IV contrast 08/03/2017. FINDINGS: Chest: Examination limited by motion artifact. Mild linear atelectasis or scarring in the lung bases. Lungs are otherwise clear. No pleural effusion. Cardiomegaly. No pericardial effusion. No pneumothorax. No mediastinal, hilar or axillary lymphadenopathy. Normal caliber thoracic aorta and main pulmonary arteries. Abdomen and pelvis: Cholecystectomy. There are postoperative findings in the ileocecal junction. There is bowel wall thickening of the terminal ileum and marked inflammatory changes in the adjacent mesenteric fat. No evidence of small bowel obstruction. Large amount of stool in the proximal colon. The descending and sigmoid colon are relatively decompressed. No organized fluid collections in the abdomen. No free intraperitoneal air. No lymphadenopathy. No acute osseous findings. IMPRESSION: 1. There are postoperative findings in the ileocecal junction. There is bowel wall thickening of the terminal ileum and marked inflammatory change in the adjacent mesenteric fat. No organized fluid collections. No evidence of bowel obstruction. No free intraperitoneal air. 2. No acute CT findings in the chest. Dictated by: Dictated on workstation # [id number]
--- NOTE | 2017-10-12 21:39 | History & Physical-Surgical ---
History of Present Illness History of Present Illness Reason for visit/HPI HPI per ED: Patient is a 46 year old female who presents to the ED for RLQ abdominal pain x6 hours duration. She states that it started early this afternoon while at work and has worsened since the onset. Patient admits to some nausea without vomiting that began 2-3 hours ago. She has had 3 bowel movements today with them progressively getting more watery. 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 Coe about 2 months ago. She states that she is not receiving any treatment for the cancer at this time and sees Dr. Bauman. Patient states that the tumor is stage 4 and she has some residual tumor in her abdomen and also has a suspicious spot in her lung. 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 while she was working. She states pain started about 4-5 hours before that. She was crying because of the pain and concern for what it could mean. She thought it kind of felt like when she had "obstructive symptoms". She stated she had had a BM in the morning but no flatus. She described the pain as 8 out of 10; radiating to middle. I next saw her in the ER around 20: 15. She was febrile and had an elevated WBC. Date of Admission Oct 12, 2017 at 20:43 Time Seen by Provider: 18:08 I consulted on this patient on 10/12/17 21:33 Attending Physician Rogelio Coe DO Admitting Physician [facility] Consult Allergies and Home Medications Allergies Coded Allergies: Sulfa (Sulfonamide Antibiotics) (Verified Allergy, Mild, RASH, 11/05/12) acetaminophen (Verified Adverse Reaction, Mild, N/V, 11/05/12) oxycodone HCl (Verified Adverse Reaction, Mild, N/V, 11/05/12) Home Medications Alendronate Sodium 70 Mg Tablet, 70 MG PO Mo, (Reported) Cholecalciferol (Vitamin D3) 5,000 Unit Capsule, 5,000 UNIT PO DAILY, (Reported) Clonazepam 1 Mg Tablet, 1 MG PO HS, (Reported) Diclofenac Sodium 75 Mg Tablet.dr, 75 MG PO BID, (Reported) Duloxetine HCl 30 Mg Capsule.dr, 30 MG PO HS, (Reported) Hydrocodone Bit/Acetaminophen 1 Tab Tab, 1 TAB PO Q6H PRN Prescribed by: ROGELIO COE on 08/07/17 1138 Patient Home Medication List Home Medication List Reviewed: Yes Past Pwdlnaf-Ntbjpk-Nbgacy Hx Patient Social History Alcohol Use: Denies Use Recreational Drug Use: No Smoking Status: Never a Smoker 2nd Hand Smoke Exposure: No Recent Foreign Travel: No Contact w/Someone Who Travel: No Recent Infectious Disease Expo: No Recent Hopitalizations: No Immunizations Up To Date Date of Influenza Vaccine: Nov 06, 2016 Seasonal Allergies Seasonal Allergies: No Surgeries History of Surgeries: Yes (RIGHT NEPHRECTOMY--" KIDNEY", VENTRAL HERNIA REPAIR, BMT'S, ) Surgeries: Abdominal, Adenoidectomy, Appendectomy, Ear Surgery, Gallbladder, Nephrectomy, Tonsillectomy Respiratory History of Respiratory Disorde: No Cardiovascular History of Cardiac Disorders: No Neurological History of Neurological Disord: No Reproductive System Hx Reproductive Disorders: Yes (NICHOLS'S SYNDROME) Genitourinary History of Genitourinary Disor: Yes (S/P RIGHT NEPHRECTOMY FOR NON-FUNCTIONING KIDNEY) Genitourinary Disorders: Kidney Infection, Bladder Infection, Kidney Stones, Polycystic Kidney Disease Gastrointestinal History of Gastrointestinal Di: Yes (HERNIA REPAIR, HEPATITIS A) Gastrointestinal Disorders: Abdominal Hernia, Colitis, Hepatitis, Gall Bladder Disease, Irritable Bowel Musculoskeletal History of Musculoskeletal Dis: Yes Musculoskeletal Disorders: Arthritis Endocrine History of Endocrine Disorders: Yes (NICHOLS'S SYNDROME) HEENT History of HEENT Disorders: Yes HEENT Disorders: Chronic Ear Infection, Tonsilitis Hearing Impairment: Hard of Hearing Cancer History of Cancer: No Psychosocial History of Psychiatric Problem: Yes Behavioral Health Disorders: Anxiety, Depression Integumentary History of Skin or Integumenta: No Blood Transfusions History of Blood Disorders: No Family Medical History Significant Family History: Cancer, Hypertension Review of Systems Constitutional: chills, malaise, weakness EENTM: No blurred vision, No mouth pain, No mouth swelling, No epistaxis, No throat swelling Respiratory: No cough, No dyspnea on exertion Cardiovascular: No chest pain, No edema, No palpitations Gastrointestinal: abdominal pain, constipation, diarrhea; No jaundice, No loss of appetite, No melena Genitourinary: No dysuria, No frequency, No hematuria Musculoskeletal: No back pain, No joint pain, No joint swelling, No muscle pain Skin: No change in color, No change in hair/nails Psychiatric/Neurological: Anxiety, Depressed; Denies Pre-Existing Deficit, Denies Tingling, Denies Tremors pt denies any abnormal bleeding or bruising, no heat or cold intolerance Physical Exam Vital Signs Vital Signs - First Documented 10/12/17 18:55 Temp 102.1 Pulse 101 Resp 18 B/P (MAP) 124/72 (89) Pulse Ox 99 O2 Delivery Room Air Capillary Refill : Less Than 3 Seconds Height, Weight, BMI Height: 4'7.00" Weight: 121lbs. 0.0oz. 54.999151lt; 27.9 BMI Method:Stated General Appearance: WD/WN, Mild Distress Eyes: Bilateral Eye PERRL, Bilateral Eye EOMI HEENT: Pharynx Normal, Moist Mucous Membranes; No Pale Conjunctivae (L), No Pale Conjunctivae (R) Neck: Full Range of Motion, Normal Inspection, Non Tender, Supple Respiratory: Chest Non Tender, Lungs Clear, Normal Breath Sounds, No Accessory Muscle Use, No Respiratory Distress Cardiovascular: Regular Rate, Rhythm, No Edema, Normal Peripheral Pulses Gastrointestinal: No Organomegaly, No Pulsatile Mass, Soft, Abnormal Bowel Sounds (decreased); No Mass; Tenderness (mostly RLQ but some diffuse) Rectal: Deferred Back: No CVA Tenderness, No Vertebral Tenderness Extremity: Normal Capillary Refill, Normal Inspection, Normal Range of Motion, Non Tender, No Calf Tenderness Neurologic/Psychiatric: Alert, Oriented x3, No Motor/Sensory Deficits, endocrinologist II- XII Norm as Tested, Other (pt has labile mood) Skin: Normal Color, Warm/Dry Lymphatic: No Adenopathy (neck, axilla or groin) Data Review Labs Laboratory Tests 10/12/17 19:16: White Blood Count 13.0H, Red Blood Count 4.37, Hemoglobin 13.2, Hematocrit 38, Mean Corpuscular Volume 86, Mean Corpuscular Hemoglobin 30, Mean Corpuscular Hemoglobin Concent 35, Red Cell Distribution Width 13.1, Platelet Count 222, Mean Platelet Volume 9.5, Neutrophils (%) (Auto) 90H, Lymphocytes (%) (Auto) 5L , Monocytes (%) (Auto) 5, Eosinophils (%) (Auto) 0, Basophils (%) (Auto) 0, Neutrophils # (Auto) 11.7H, Lymphocytes # (Auto) 0.7L, Monocytes # (Auto) 0.6, Eosinophils # (Auto) 0.0, Basophils # (Auto) 0.0, Neutrophils % (Manual) 71, Lymphocytes % (Manual) 5, Monocytes % (Manual) 5, Eosinophils % (Manual) 0, Basophils % (Manual) 2, Metamyelocytes % 1, Band Neutrophils 16, Blood Morphology Comment NORMAL, Prothrombin Time 13.2, INR Comment 1.0, Activated Partial Thromboplast Time 31, Sodium Level 139, Potassium Level 4.1, Chloride Level 105, Carbon Dioxide Level 22, Anion Gap 12, Blood Urea Nitrogen 18, Creatinine 0.85, Estimat Glomerular Filtration Rate > 60, BUN/Creatinine Ratio 21, Glucose Level 150H, Lactic Acid Level 2.33*H, Calcium Level 9.6, Corrected Calcium 9.4, Total Bilirubin 0.6, Aspartate Amino Transf (AST/SGOT) 36H, Alanine Aminotransferase (ALT/SGPT) 84H, Alkaline Phosphatase 156H, Total Protein 6.5, Albumin 4.2, Lipase 35 10/12/17 20:05: Urine Color YELLOW, Urine Clarity CLEAR, Urine pH 5, Urine Specific Zuni 1.020, Urine Protein NEGATIVE, Urine Glucose (UA) NEGATIVE, Urine Ketones NEGATIVE, Urine Nitrite NEGATIVE, Urine Bilirubin NEGATIVE, Urine Urobilinogen NORMAL, Urine Leukocyte Esterase 1+H, Urine RBC (Auto) NEGATIVE, Urine RBC NONE , Urine WBC 2-5, Urine Squamous Epithelial Cells 2-5, Urine Crystals NONE, Urine Bacteria TRACE, Urine Casts NONE, Urine Mucus SMALLH, Urine Culture Indicated NO 10/12/17 21:10: Lactic Acid Level 1.57 Assessment/Plan Assessment/Plan Admission Diagonsis RLQ pain Sepsis Inflammation around Anastomosis Admission Status: Inpatient Order (span 2 midnights) Reason for Inpatient Admission: R/O obstruction, IV ABX Assessment/Plan RLQ pain Sepsis Inflammation around Anastomosis NPO, IV fluids, IV pain meds, IV ABX and anti-emetics. Admit and will order SBFT for tomorrow. Recheck labs in am. Await final reading from Radiologist. Pt did have a recent Octreotide scan which did not show any residual carcinoid. I will make sure I have radiologist who read previous films go over to make sure there is no new mass in the area of inflammation. I reassured pt we would take good care of her and answered all her questions. ROGELIO COE DO Oct 12, 2017 21:39
--- OUTSIDE RECORDS SUMMARY | 2017-10-12 22:23 | XMS REPORT ---
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 19437890 Problem Irritable bowel syndrome without diarrhea K58.9 Active 94580610 Problem Hearing loss, bilateral H91.93 Active 23556627 Problem IBS (irritable bowel syndrome) K58.9 Active 80048094 Problem Generalized anxiety disorder F41.1 Active 025275883 Problem Vitamin D deficiency E55.9 Active 76058832 Problem Osteopenia M85.80 Active 258680847 Problem Symptomatic premature menopause E28.310 Active 247504937 Problem Arthralgia M25.50 Active 68097617 Problem History of nephrectomy Z90.5 Active 048496828 Problem Neck pain M54.2 Active 31734996 ALLERGIES Substance Reaction Event Type Date Status Sulfamethoxazole-Trimethoprim Unknown Drug Allergy May, Active Percocet Unknown Drug Allergy May, Active ENCOUNTERS Encounter Location Date Diagnosis [facility] [id number], [place] [address] Sep, Generalized anxiety disorder F41.1 and Chronic use of benzodiazepine for therapeutic purpose Z79.899 [facility] [id number], [place] [address] Aug, Osteopenia M85.80 ; 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 ; Generalized anxiety disorder F41.1 ; Vitamin D deficiency E55.9 and Major depressive disorder, recurrent, moderate F33.1 [facility] [id number] [address] Aug, Generalized anxiety disorder F41.1 [place] [id number] [place] [address] Jul, Osteopenia M85.80 [place] [id number] [place] [address] June, Generalized anxiety disorder F41.1 [facility] [id number] [place] [address] May, Acute nasopharyngitis J00 [facility] [id number] [place] [address] May, Sore in nose J34.89 [place] [address] [address] Apr, Osteopenia M85.80 and Generalized anxiety disorder F41.1 [place] [id number] [place] [address]70[address] Feb, [place] [address] [address] Nov, Depression F32.9 ; Osteopenia M85.80 ; Generalized anxiety disorder F41.1 ; Irritable bowel syndrome without diarrhea K58.9 ; Vitamin D deficiency E55.9 ; Arthralgia M25.50 ; 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 ; General medical exam Z00.00 and Long-term use of high-risk medication Z79.899 [place] [id number] [place] [address]90[address] Sep, Depression F32.9 and Osteopenia M85.80 [place] [id number] [place] [address] Aug, Depression F32.9 [place] [id number] [place] [address] 217[address]- 6901 June, Depression F32.9 [place] [id number] [place] [address] 45052- 6429 May, Depression F32.9 [place] [id number] [place] [address]67[address]- [address] Mar, Depression F32.9 [facility] [id number] [place] [address] Mar, Depression F32.9 ; 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 ; Irritable bowel syndrome without diarrhea K58.9 ; Symptomatic premature menopause E28.310 ; History of nephrectomy Z90.5 ; Neck pain M54.2 ; Non-healing skin lesion of nose L98.9 and Vitamin D deficiency E55.9 [place] [id number] [place] [address]57- 24[address] Feb, [place] [id number] [place] [address] 76814- 459[address] Jan, [place] [id number] [place] [address] 15284- 1306 Dec, Hearing loss, bilateral H91.93 [place] [id number] [place] [address]- 97[address] Nov, [place] [id number] [place] [address] 30412- 4423 Nov, [facility] [id number] [place] [address] 38419- 28[address] Nov, [place] [id number] [place] [address] 78468- 3[address] Oct, Depression F32.9 ; 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 ; Irritable bowel syndrome without diarrhea K58.9 ; Symptomatic premature menopause E28.310 ; History of nephrectomy Z90.5 and Neck pain M54.2 [facility] [id number] [place] [address]21- [address] Sep, [place] [id number] [place] [address] 38920- 1734 Sep, Depression F32.9 ; 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 ; Abnormal finding on CT scan R93.8 ; Irritable bowel syndrome without diarrhea K58.9 ; Symptomatic premature menopause E28.310 ; History of nephrectomy Z90.5 ; Neck pain M54.2 ; Arthralgia M25.50 ; Osteopenia M85.80 and Screening breast examination Z12.39 [facility] [id number] [place] [address] 30789- 1739 Sep, [place] [address] [address] June, [facility] [id number] [place] [address] 32588- 6092 Mar, Osteopenia M85.80 [place] [id number] [place] [address] 46838- 3[address] Feb, Depression F32.9 ; 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 ; Abnormal finding on CT scan R93.8 ; Irritable bowel syndrome without diarrhea K58.9 ; Symptomatic premature menopause E28.310 ; History of nephrectomy Z90.5 ; Neck pain M54.2 and Arthralgia M25.50 [place] [id number] [place] [address]472- 6[address] Feb, [place] [id number] [place] [address] 25782- 1785 Feb, [place] [id number] [place] [address] 02665- 9834 Jan, Depression F32.9 ; 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 ; Abnormal finding on CT scan R93.8 ; Irritable bowel syndrome without diarrhea K58.9 ; Symptomatic premature menopause E28.310 ; History of nephrectomy Z90.5 ; Neck pain M54.2 and Arthralgia M25.50 [place] [id number] [place] [address] 60824- 67[address] Jan, Depression F32.9 and Generalized anxiety disorder F41.1 [facility] [id number] [place] [address] Jan, Halie rash of groin B37.89 ; Antibiotic long-term use Z79.2 and Sinusitis 473.9 [facility] [address] [address] Oct, Unspecified breast screening V76.10 [facility] [address] [address] June, Sinusitis 473.9 [facility] [id number] [place] [address]130- [address] May, [facility] [address] [address] May, [facility] [address], [place] [address] Apr, [facility] [address] [address] Mar, [facility] [id number] [place] [address] 25503- [address] Mar, [facility] [address] [address] Mar, [facility] [address] [address] Mar, [facility] [address], [place] [address] Feb, [facility] [address], [place] [address] Feb, [facility] [address], [place] [address] Feb, [facility] [address], [place] [address] Feb, [facility] [id number] [address] Feb, [facility] [address] [address] Feb, [facility] [place] [facility] [address] [id number] [place] [address] Jan, [facility] [place] [facility] [address] [id number] [place] [address] Jan, [facility] [place] [facility] [address] [id number] [place] [address] Dec, [facility] [place] [facility] [address] [id number] [place] [address] Dec, [facility] [place] [facility] [address] [id number] [place] [address] Nov, [facility] [place] [facility] [address] [id number] [place] [address] Nov, [facility] [place] [facility] [address] [id number] [place] [address] Oct, [facility] [place] [facility] [address] [id number] [place] [address]- 113[address] Oct, [facility] [place] [facility] [address] [id number] [place] [address] Oct, [facility] [place] [facility] [address] [id number] [place] [address]- [address] Oct, [facility] [place] [facility] [address] [id number] [place] [address] 134[address] Nov, [facility] [place] [facility] [address] [id number] [place] [address] Nov, [facility] [place] [facility] [address] [id number] [place] [address]- 138[address] Sep, [facility] [place] [facility] [address] [id number] [place] [address] Sep, [facility] [place] [facility] [address] [id number] [place] [address] Sep, [facility] [place] [facility] [address] [facility] [id number] [address] Jul, [facility] [address] [facility] [id number] [address] June, [facility] [address] [facility] [id number] [address] June, [facility] [address] [facility] [id number] [address] May, [facility] [address] [facility] [id number] [address] May, [facility] [address] [facility] [id number] [address] Apr, IMMUNIZATIONS No Known Immunizations SOCIAL HISTORY Never Assessed REASON FOR VISIT sore in the inside of her left nostril. been there since yesterday. reports it is very sore. miguel PLAN OF CARE Activity Details Follow Up prn Reason: VITAL SIGNS Height 55 in 2017-05-22 Weight 125.8 lbs 2017-05-22 Temperature 98.4 degrees Fahrenheit 2017-05-22 Heart Rate 70 bpm 2017-05-22 Respiratory Rate 20 2017-05-22 BMI 29.24 kg/m2 2017-05-22 Blood pressure systolic 124 mmHg 2017-05-22 Blood pressure diastolic 72 mmHg 2017-05-22 MEDICATIONS Medication Instructions Dosage Frequency Start Date End Date Duration Status Vitamin D 2000 UNIT Orally Once a day 2 tablet 24h Active Bactroban Nasal 2 % Nasally Twice a day 1 application 12h 16 May, 2017 May, 5 day(s) Active Bentyl 10 mg oral bid prn 1 Capsule Not-Taking Clonazepam 1 MG Orally Once a day at hs prn 1 tablet 28 days Active Fosamax 70 MG Orally weekly 1 tablet Active Diclofenac Sodium CR 75 mg oral two times per day 1 tablet Active Duloxetine HCl 30 MG Orally daily 1 capsule 24h 30 Active RESULTS No Results PROCEDURES No Known procedures INSTRUCTIONS MEDICATIONS ADMINISTERED No Known Medications MEDICAL (GENERAL) HISTORY Type Description Date Medical History Turners syndrome Medical History irritable bowel syndrome Medical History Personal history of, nephrotic syndrome Medical History Hormone replacement therapy (postmenopausal) Medical History noted a 1.6cm nodule in terminal ilieum on ct similar to 12-20- sched for recheck Medical History moderate arthritis LS 2014 Medical History Vitamin D Deficiency Medical History Endoscopy with Dr. Flaherty Medical History Solitary Left Kidney Medical History Stage 4 Bowel Cancer-Dr Bauman, Dr Clement ([place]) Medical History Antibiotic long-term use Medical History Abnormal finding on CT scan Medical History Non-healing skin lesion of nose Surgical History hernia repair, hiatal Surgical History cholecystectomy Surgical History tonsillectomy Surgical History appendectomy Surgical History Kidney surgery, right kidney removed 06/1996 Surgical History Otolaryngologic surgery tubes in ears Surgical History bowel obstruction 08/03/17 Hospitalization History surgical
--- OUTSIDE RECORDS SUMMARY | 2017-10-12 22:23 | XMS REPORT ---
Author Author LAWANDA SHAVER Organization 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 07102892 Problem Irritable bowel syndrome without diarrhea K58.9 Active 41288414 Problem Hearing loss, bilateral H91.93 Active 63204574 Problem IBS (irritable bowel syndrome) K58.9 Active 10812136 Problem Generalized anxiety disorder F41.1 Active 088404698 Problem Vitamin D deficiency E55.9 Active 19953473 Problem Osteopenia M85.80 Active 011545169 Problem Symptomatic premature menopause E28.310 Active 434636578 Problem Arthralgia M25.50 Active 97050516 Problem History of nephrectomy Z90.5 Active 925393227 Problem Neck pain M54.2 Active 49857327 ALLERGIES No Information ENCOUNTERS Encounter Location Date Diagnosis [place] [address], [place] [address] Sep, Major depressive disorder, recurrent, moderate F33.1 and Arthralgia M25.50 [place] [id number], [place] [address] Sep, Generalized anxiety disorder F41.1 and Chronic use of benzodiazepine for therapeutic purpose Z79.899 [address], [place] [address] Aug, Osteopenia M85.80 ; 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 [address] [id number] [place] [address] 10314- 5915 Jul, Osteopenia M85.80 [place] [id number] [place] [address] 84006- 6784 June, Generalized anxiety disorder F41.1 [facility] [id number] [place] [address] 17980 -9842 May, Acute nasopharyngitis J00 [facility] [id number] [place] [address] 28792 -4983 May, Sore in nose J34.89 [place] [id number] [place] [address] 58534- 7908 Apr, Osteopenia M85.80 and Generalized anxiety disorder F41.1 [place] [address] [id number] [place] [address] 67019- 2246 Feb, [place] [id number] [place] [address] 97476- 0181 Nov, Depression F32.9 ; Osteopenia M85.80 ; Generalized anxiety disorder F41.1 ; Irritable bowel syndrome without diarrhea K58.9 ; Vitamin D deficiency E55.9 ; Arthralgia M25.50 ; 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 [address] [place] [address] 15874- 8982 Sep, Depression F32.9 and Osteopenia M85.80 [place] [address] [id number] [place] [address] 41931- 9011 Aug, Depression F32.9 [place] [id number] [place] [address] 54907- 1208 June, Depression F32.9 [place] [address] [id number] [place] [address] 90474- 2387 May, Depression F32.9 [facility] [address] 84228- 2396 Mar, [address]9 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 ; Irritable bowel syndrome without diarrhea K58.9 ; Symptomatic premature menopause E28.310 ; History of nephrectomy Z90.5 ; Neck pain M54.2 ; Non-healing skin lesion of nose L98.9 and Vitamin D deficiency E55.9 [place] [id number] [place] [address] 91792- 2326 Feb, [place] [address] [id number] [place] [address] 42208- 2029 Jan, [place] [address] [id number] [place] [address] 55264- 7355 Dec, Hearing loss, bilateral H91.93 [place] [id number] [place] [address] 26735- 9466 Nov, [place] [address] [id number] [place] [address] 30991- 0695 Nov, [place] [address] [id number] [place] [address] 21608- 2216 Nov, 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 [address] [id number] [place] [address] 81856- 8888 Sep, 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 ; Abnormal finding on CT scan R93.8 ; Irritable bowel syndrome without diarrhea K58.9 ; Symptomatic premature menopause E28.310 ; History of nephrectomy Z90.5 ; Neck pain M54.2 ; Arthralgia M25.50 ; Osteopenia M85.80 and Screening breast examination Z12.39 [place] [address] 75369- 5058 Sep, [place] [address] 18591- 9790 June, [place] [address] 13181- 8791 Mar, Osteopenia M85.80 [place] [address] 92651- 6334 Feb, Depression F32.9 ; 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 ; Abnormal finding on CT scan R93.8 ; Irritable bowel syndrome without diarrhea K58.9 ; Symptomatic premature menopause E28.310 ; History of nephrectomy Z90.5 ; Neck pain M54.2 and Arthralgia M25.50 [place] [address] 50097- 2399 Feb, [place] [address] 71195- 7676 Feb, [place] [address] 59179- 4670 Jan, Depression F32.9 ; 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 [address], [place] [address] 16 Oct, 2014 Unspecified breast screening V76.10 [facility] [address], [place] [address]- 7389 June, Sinusitis 473.9 [facility] [address], [place] [address] 30[address] May, [facility] [address] [address]16 May, [facility] [address] Apr, [facility] [address] [address] Mar, [facility] [id number] [address] 0208 Mar, [facility] [address] [address] 95[address] Mar, [facility] [address] [address] 27[address] Mar, [facility] [address] [address] 7844 Feb, [facility] [address] [address] Feb, [facility] [address] [address]76 Feb, [facility] [id number], [place] [address] Feb, [facility] [address] [place] [address] [place] [address]- 2096 Feb, [facility] [place] [facility] [address] [id number] [place] [address]- 2842 Feb, [facility] [place] [facility] [address] [id number] [place] [address] Jan, [facility] [place] [facility] [address] [id number] [place] 2[address] Jan, [facility] [place] [facility] [address] [id number] [place] [address]- 0412 Dec, [facility] [place] [facility] [address] [id number] [place] [address]- 7178 Dec, [facility] [place] [facility] [address] [id number] [place] [address]- 7620 Nov, [facility] [place] [facility] [address] [id number] [place] [address]- 9030 Nov, [facility] [place] [facility] [address] [id number] [place] [address]- 8576 Oct, [facility] [place] [facility] [address] [id number] [place] [address]- 3413 Oct, [facility] [place] [facility] [address] [id number] [place] [address]- 7673 Oct, [facility] [place] [facility] [address] [id number] [place] [address]- 6572 Oct, [facility] [place] [facility] [address] [id number] [place] [address]- 0695 Nov, [facility] [place] [facility] [address] [id number] [place] [address]- 3856 Nov, [facility] [place] [facility] [address] [id number] [place] [address]- 8238 Sep, [facility] [place] [facility] [address] [id number] [place] [address]- 4518 Sep, [facility] [place] [facility] [address] [facility] [id number], [place] [address]- [address]14 Sep, [facility] [address] [id number] [address] 6754 Jul, [facility] [id number] [address] 7931 June, [facility] [address] [facility] [id number], [place] [address] 3828 June, [facility] [address] [facility] [id number], [place] [address]- 4251 May, [facility] [id number], [place] [address]- [address] May, [facility] [address] [facility] [id number] 6414 Apr, IMMUNIZATIONS No Known Immunizations SOCIAL HISTORY Never Assessed REASON FOR VISIT Refill request PLAN OF CARE VITAL SIGNS MEDICATIONS Medication Instructions Dosage Frequency Start Date End Date Duration Status Fosamax 70 MG Orally weekly 1 tablet Active RESULTS No Results PROCEDURES No Known [...] Kidney Medical History Stage 4 Bowel Cancer-Dr Urbano Welsh ([place]) Medical History Antibiotic long-term use Medical History Abnormal finding on CT scan Medical History Non-healing skin lesion of nose Surgical History hernia repair, hiatal Surgical History cholecystectomy Surgical History tonsillectomy Surgical History appendectomy Surgical History Kidney surgery, right kidney removed 06/1996 Surgical History Otolaryngologic surgery tubes in ears Surgical History bowel obstruction 08/03/17 Hospitalization History surgical
--- OUTSIDE RECORDS SUMMARY | 2017-10-12 22:23 | XMS REPORT ---
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 34774841 Problem Irritable bowel syndrome without diarrhea K58.9 Active 44627880 Problem Hearing loss, bilateral H91.93 Active 62049139 Problem IBS (irritable bowel syndrome) K58.9 Active 25692810 Problem Generalized anxiety disorder F41.1 Active 237519216 Problem Vitamin D deficiency E55.9 Active 66705258 Problem Osteopenia M85.80 Active 223778582 Problem Symptomatic premature menopause E28.310 Active 716575911 Problem Arthralgia M25.50 Active 10092322 Problem History of nephrectomy Z90.5 Active 581315528 Problem Neck pain M54.2 Active 11239483 ALLERGIES Substance Reaction Event Type Date Status Sulfamethoxazole-Trimethoprim Unknown Drug Allergy May, Active Percocet Unknown Drug Allergy May, Active ENCOUNTERS Encounter Location Date Diagnosis [facility] [id number], [place] [address]- 6414 Sep, Generalized anxiety disorder F41.1 and Chronic use of benzodiazepine for therapeutic purpose Z79.899 [facility] [id number] [place] [address] 01881- 9157 Aug, Osteopenia M85.80 ; 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 ; Generalized anxiety disorder F41.1 ; Vitamin D deficiency E55.9 and Major depressive disorder, recurrent, moderate F33.1 [facility] [id number], [place] [address]- 6939 Aug, Generalized anxiety disorder F41.1 [facility] [address], [place] [address]- 9330 Jul, Osteopenia M85.80 [place] [address] [place] [id number] [place] [address] 19300- 9294 June, Generalized anxiety disorder F41.1 [facility] [id number] [place] [address] 67431 -1047 May, Acute nasopharyngitis J00 [facility] [address] [id number] [place] [address] 31281 -9742 May, Sore in nose J34.89 [place] [address] [place] [id number] [place] [address] 79388- 5428 Apr, Osteopenia M85.80 and Generalized anxiety disorder F41.1 [place] [address] [place] [address] [id number] [place] [address] 02449- 2273 Feb, [place] [address] [place] [id number] [place] [address] 32608- 1218 Nov, Depression F32.9 ; Osteopenia M85.80 ; Generalized anxiety disorder F41.1 ; Irritable bowel syndrome without diarrhea K58.9 ; Vitamin D deficiency E55.9 ; Arthralgia M25.50 ; 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 ; General medical exam Z00.00 and Long-term use of high-risk medication Z79.899 [place] [address] [place] [address] 31747- 8149 Sep, Depression F32.9 and Osteopenia M85.80 [place] [address] [id number] [place] [address] 77618- 0948 Aug, Depression F32.9 [place] [address] [id number] [place] [address] 97136- 6395 June, Depression F32.9 [place] [address] [id number] [place] [address] 36772- 8696 May, Depression F32.9 [facility] [id number] [place] [address] 07832- 7333 Mar, Depression F32.9 [facility] [id number] [place] [address] 653576- 5637 Mar, Depression F32.9 ; 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 ; Irritable bowel syndrome without diarrhea K58.9 ; Symptomatic premature menopause E28.310 ; History of nephrectomy Z90.5 ; Neck pain M54.2 ; Non-healing skin lesion of nose L98.9 and Vitamin D deficiency E55.9 [facility] [id number] [place] [address] 18145- 0306 Feb, [facility] [address] [id number] [place] [address] 18065- 4020 Jan, [facility] [address] 94692- 3670 Dec, Hearing loss, bilateral H91.93 [facility] [id number] [place] [address] 58060- 8272 Nov, [facility] [id number] [place] [address] 32236- 8323 Nov, [facility] [id number] [place] [address] 05916- 0369 Nov, [facility] [id number] [place] [address] 54525- 4119 Oct, Depression F32.9 ; 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80 and Screening breast examination Z12.39 [facility] [address] 9[address]33- 1954 Sep, [place] [address] 80319- 5539 June, [place] [address] 09668- 2239 Mar, Osteopenia M85.80 [place] [address] 00615- 1142 Feb, Depression F32.9 ; 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 ; Abnormal finding on CT scan R93.8 ; Irritable bowel syndrome without diarrhea K58.9 ; Symptomatic premature menopause E28.310 ; History of nephrectomy Z90.5 ; Neck pain M54.2 and Arthralgia M25.50 [place] [address] 21898- 8847 Feb, [facility] [address] 99653- 8578 Feb, [place] [address] 78947- 0761 Jan, Depression F32.9 ; 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 ; Abnormal finding on CT scan R93.8 ; Irritable bowel syndrome without diarrhea K58.9 ; Symptomatic premature menopause E28.310 ; History of nephrectomy Z90.5 ; Neck pain M54.2 and Arthralgia M25.50 [place] [address] 75994- 3055 Jan, Depression F32.9 and Generalized anxiety disorder F41.1 [facility] [address] [address] -5810 Jan, [place]ie rash of groin B37.89 ; Antibiotic long-term use Z79.2 and Sinusitis 473.9 [facility] [id number] [place] [address] 86937- 9605 Oct, Unspecified breast screening V76.10 [facility] [id number] [place] [address] 10715- 5306 June, Sinusitis 473.9 [facility] [id number] [place] [address] 27621- 0344 May, [facility] [id number] [place] [address] 86772- 3449 May, [facility] [id number] [place] [address] 21138- 7556 Apr, [facility] [id number] [place] [address] 01483- 4626 Mar, [facility] [id number] [place] [address] 03742- 6272 Mar, [facility] [id number] [place] [address] 447884- 7526 Mar, [facility] [id number] 3808 Mar, [facility] [id number] [place] [address] 70819- 3166 Feb, [facility] [id number] [place] [address] 06993- 1802 Feb, [facility] [address] [place] [address] 735535- 0673 Feb, [facility] [id number] [place] [address] 542445- 7697 Feb, [facility] [address], [place] [address]- 7966 Feb, [facility] [place] [facility] [address] [id number] [place] [address]- 5448 Feb, [facility] [place] [facility] [address] [id number] [place] [address]602 Jan, [facility] [place] [facility] [address] [id number] [place] [address]- 9247 Jan, [facility] [place] [facility] [address] [id number] [place] [address]- 8136 Dec, [facility] [place] [facility] [address] [id number] [place] [address]- 6278 Dec, [facility] [place] [facility] [address] [id number] [place] [address]- 8964 Nov, [facility] [place] [facility] [address] [id number] [place] [address]- 7269 Nov, [facility] [place] [facility] [address] [id number] [place] [address]- 9714 Oct, [facility] [place] [facility] [address] [id number] [place] [address]- 7231 Oct, [facility] [place] [facility] [address] [id number] [place] [address]- 1112 Oct, [facility] [place] [facility] [address] [id number] [place] [address]- 4466 Oct, [facility] [place] [facility] [address] [id number] [place] [address]- 8361 Nov, [facility] [place] [facility] [address] [id number] [place] [address]- 6356 Nov, [facility] [place] [facility] [address] [id number] [place] [address]- 5781 Sep, [facility] [place] [facility] [address] [id number] [place] [address]- 6201 Sep, [facility] [place] [facility] [address] [id number] [place] [address]- 7789 Sep, [facility] [address] [facility] [id number] [place] [address]- 5192 Jul, [facility] [address] [facility] [id number], [place] [address]- 7916 June, [facility] [address] [facility] [id number], [place] [address]- 8036 June, [facility] [address] [facility] [id number], [place] [address]- 2136 May, [facility] [address] [facility] [id number], [place] [address]- 3686 May, [facility] [address] [facility] [id number], [place] [address]- 1506 Apr, IMMUNIZATIONS No Known Immunizations SOCIAL HISTORY Never Assessed REASON FOR VISIT nasal congestion, cough and runny nose started yesterday [employer] PLAN OF CARE Activity Details Follow Up prn Reason: VITAL SIGNS Height 55 in 2017-05-31 Weight 124.4 lbs 2017-05-31 Temperature 98.8 degrees Fahrenheit 2017-05-31 Heart Rate 72 bpm 2017-05-31 Respiratory Rate 20 2017-05-31 BMI 28.91 kg/m2 2017-05-31 Blood pressure systolic 124 mmHg 2017-05-31 Blood pressure diastolic 82 mmHg 2017-05-31 MEDICATIONS Medication Instructions Dosage Frequency Start Date End Date Duration Status Clonazepam 1 MG Orally Once a day at hs prn 1 tablet 28 days Active Bentyl 10 mg oral bid prn 1 Capsule Not-Taking Fosamax 70 MG Orally weekly 1 tablet Active Diclofenac Sodium CR 75 mg oral two times per day 1 tablet Active Duloxetine HCl 30 MG Orally daily 1 capsule 24h 30 Active Vitamin D 2000 UNIT Orally Once a day 2 tablet 24h Active RESULTS No Results PROCEDURES No Known [...] Stage 4 Bowel Cancer-Dr Bauman, Dr Clement ([place]) Medical History Antibiotic long-term use Medical History Abnormal finding on CT scan Medical History Non-healing skin lesion of nose Surgical History hernia repair, hiatal Surgical History cholecystectomy Surgical History tonsillectomy Surgical History appendectomy Surgical History Kidney surgery, right kidney removed 06/1996 Surgical History Otolaryngologic surgery tubes in ears Surgical History bowel obstruction 08/03/17 Hospitalization History surgical
--- OUTSIDE RECORDS SUMMARY | 2017-10-12 22:23 | XMS REPORT ---
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 51186345 Problem Irritable bowel syndrome without diarrhea K58.9 Active 23888044 Problem Hearing loss, bilateral H91.93 Active 02459560 Problem IBS (irritable bowel syndrome) K58.9 Active 34447874 Problem Generalized anxiety disorder F41.1 Active 446207214 Problem Vitamin D deficiency E55.9 Active 77355778 Problem Osteopenia M85.80 Active 722337240 Problem Symptomatic premature menopause E28.310 Active 305897883 Problem Arthralgia M25.50 Active 95903731 Problem History of nephrectomy Z90.5 Active 894206255 Problem Neck pain M54.2 Active 23085323 ALLERGIES No Information ENCOUNTERS Encounter Location Date Diagnosis [place] [id number] [address] Sep, Major depressive disorder, recurrent, moderate F33.1 and Arthralgia M25.50 [place] [id number] [address] Sep, Generalized anxiety disorder F41.1 and Chronic use of benzodiazepine for therapeutic purpose Z79.899 [address] [address] 83[address] Aug, Osteopenia M85.80 ; 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 ; Generalized anxiety disorder F41.1 ; Vitamin D deficiency E55.9 and Major depressive disorder, recurrent, moderate F33.1 [place] [id number] [place] [address] 82044- 4355 Aug, Generalized anxiety disorder F41.1 [facility] [address] [place] [id number] [place] [address] 29367- 0714 Jul, Osteopenia M85.80 [place] [address] [address] [id number] [place] [address] 86536- 1395 June, Generalized anxiety disorder F41.1 [facility] [id number] [place] [address] 19205 -3168 May, Acute nasopharyngitis J00 [facility] [id number] [place] [address] 88820 -1600 May, Sore in nose J34.89 [place] [address] [place] [address] [id number] [place] [address] 10002- 2482 Apr, Osteopenia M85.80 and Generalized anxiety disorder F41.1 [place] [address] [place] [id number] [place] [address] 30891- 8163 Feb, [place] [address] [place] [id number] [place] [address] 07166- 8280 Nov, Depression F32.9 ; Osteopenia M85.80 ; Generalized anxiety disorder F41.1 ; Irritable bowel syndrome without diarrhea K58.9 ; Vitamin D deficiency E55.9 ; Arthralgia M25.50 ; 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 ; General medical exam Z00.00 and Long-term use of high-risk medication Z79.899 [facility] [id number] [place] [address] 85391- 7231 Sep, Depression F32.9 and Osteopenia M85.80 [place] [address] [place] [id number] [place] [address] 53603- 3166 Aug, Depression F32.9 [place] [address] [place] [id number] [place] [address] 30933- 4773 June, Depression F32.9 [place] [address] [place] [id number] [place] [address] 99440- 5368 May, Depression F32.9 [facility] [address] 97116- 7736 Mar, Depression F32.9 [facility] [address] [place] [id number] [place] [address] 12841- 5631 Mar, Depression F32.9 ; 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 ; Irritable bowel syndrome without diarrhea K58.9 ; Symptomatic premature menopause E28.310 ; History of nephrectomy Z90.5 ; Neck pain M54.2 ; Non-healing skin lesion of nose L98.9 and Vitamin D deficiency E55.9 [place] [address] [place] [id number] [place] [address] 18199- 1624 Feb, [place] [address] [place] [id number] [place] [address] 00221- 2164 Jan, [place] [address] [place] [id number] [place] [address] 54007- 7382 Dec, Hearing loss, bilateral H91.93 [place] [address] [place] [address] [id number] [place] [address] 76157- 1048 Nov, [place] [address] [place] [id number] [place] [address] 64275- 3424 Nov, [place] [address] [place] [id number] [place] [address] 92946- 1837 Nov, [facility] [address] [place] [address] [id number] [place] [address] 72519- 4910 Oct, Depression F32.9 ; 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 ; Irritable bowel syndrome without diarrhea K58.9 ; Symptomatic premature menopause E28.310 ; History of nephrectomy Z90.5 and Neck pain M54.2 [facility] [address] [place] [id number] [place] [address] 26232- 5411 Sep, [facility] [address] 55984- 2051 Sep, Depression F32.9 ; 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 ; Abnormal finding on CT scan R93.8 ; Irritable bowel syndrome without diarrhea K58.9 ; Symptomatic premature menopause E28.310 ; History of nephrectomy Z90.5 ; Neck pain M54.2 ; Arthralgia M25.50 ; Osteopenia M85.80 and Screening breast examination Z12.39 [place] [address] 18014- 1217 Sep, [place] [address] 24476- 0150 June, [place] [address] 01192- 7297 Mar, Osteopenia M85.80 [place] [address] 28652- 4799 Feb, Depression F32.9 ; 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 ; Abnormal finding on CT scan R93.8 ; Irritable bowel syndrome without diarrhea K58.9 ; Symptomatic premature menopause E28.310 ; History of nephrectomy Z90.5 ; Neck pain M54.2 and Arthralgia M25.50 [place] [address] 54511- 9503 Feb, [place] [address] 99513- 4289 Feb, [place] [address] 34346- 4674 Jan, Depression F32.9 ; 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 ; Abnormal finding on CT scan R93.8 ; Irritable bowel syndrome without diarrhea K58.9 ; Symptomatic premature menopause E28.310 ; History of nephrectomy Z90.5 ; Neck pain M54.2 and Arthralgia M25.50 [place] [address] [place] [id number] [place] [address] 31120- 4275 Jan, Depression F32.9 and Generalized anxiety disorder F41.1 [facility] [address] [id number] [address] Jan, Halie rash of groin B37.89 ; Antibiotic long-term use Z79.2 and Sinusitis 473.9 [facility] [address] [address]- 8316 16 Oct, 2014 Unspecified breast screening V76.10 [facility] [address] [address]- 1855 June, Sinusitis 473.9 [facility] [address] [address]- 1717 May, [facility] [address] [address] 2006 May, [facility] [address] 3[address] Apr, [facility] [address] [address]- 9755 Mar, [facility] [address] [address]- 7264 Mar, [facility] [address] [address]- 0883 Mar, [facility] [address] [address]- 5028 Mar, [facility] [address] [address]- 1624 Feb, [facility] [address] [address]- 3807 Feb, [facility] [address] [address]- 7916 Feb, [facility] [address] [place] [id number] [address]- 3862 Feb, [facility] [id number] [place] [address] [place] [address]- 7619 Feb, [facility] [place] [facility] [address] [id number] [place] [address]- 2824 Feb, [facility] [place] [facility] [address] [id number] [place] [address]125 Jan, [facility] [place] [facility] [address] [id number] [place] [address] Jan, [facility] [place] [facility] [address] [id number] [place] [address]- 3370 Dec, [facility] [place] [facility] [address] [id number] [place] [address]- 1974 Dec, [facility] [place] [facility] [address] [id number] [place] [address]- 8936 Nov, [facility] [place] [facility] [address] [id number] [place] [address]- 3396 Nov, [facility] [place] [facility] [address] [id number] [place] [address]- 2142 Oct, [facility] [place] [facility] [address] [id number] [place] [address]- 4276 Oct, [facility] [place] [facility] [address] [id number] [place] [address]- 3070 Oct, [facility] [place] [facility] [address] [id number] [place] [address]- 8487 Oct, [facility] [place] [facility] [address] [id number] [place] [address]- 9695 Nov, [facility] [place] [facility] [address] [id number] [place] [address]- 5160 Nov, [facility] [place] [facility] [address] [id number] [place] [address]- 2739 Sep, [facility] [place] [facility] [address] [id number] [place] [address]- 6197 Sep, [facility] [place] [facility] [address] [facility] [id number] [address]- 7981 Sep, [facility] [id number] [address]- 3258 Jul, [facility] [id number] [address]- 4927 June, [facility] [address] [facility] [id number] [address]- 0439 June, [facility] [address] [facility] [id number] [place] [address]- 5260 May, [facility] [address] [id number] [address]- 0942 May, [facility] [id number] [address]- 2568 Apr, IMMUNIZATIONS No Known Immunizations SOCIAL HISTORY Never Assessed REASON FOR VISIT Controlled Med Refill PLAN OF CARE VITAL SIGNS MEDICATIONS Medication [...] Stage 4 Bowel Cancer-Dr Bauman, Dr Clement ([place]) Medical History Antibiotic long-term use Medical History Abnormal finding on CT scan Medical History Non-healing skin lesion of nose Surgical History hernia repair, hiatal Surgical History cholecystectomy Surgical History tonsillectomy Surgical History appendectomy Surgical History Kidney surgery, right kidney removed 06/1996 Surgical History Otolaryngologic surgery tubes in ears Surgical History bowel obstruction 08/03/17 Hospitalization History surgical
--- OUTSIDE RECORDS SUMMARY | 2017-10-12 22:24 | XMS REPORT ---
Author Author LAWANDA SHAVER Organization [facility] Address [address] [place] [address] Care Team Providers Care Photoengraving Retoucher Name Role Phone SIVAKUMAR LAWANDA Unavailable PROBLEMS Type Condition ICD9-CM Code BNT91-SP Code Onset Dates Condition Status SNOMED Code Problem History of nephrectomy Z90.5 Active 839793047 Problem Irritable bowel syndrome without diarrhea K58.9 Active 42715811 Problem Depression F32.9 Active 68077935 Problem Vitamin D deficiency E55.9 Active 31585499 Problem Non-healing skin lesion of nose L98.9 Active 18028250 Problem Neck pain M54.2 Active 48101652 Problem Symptomatic premature menopause E28.310 Active 005305256 Problem Osteopenia M85.80 Active 421602308 Problem Abnormal finding on CT scan R93.8 Active 116720501 Problem Hearing loss, bilateral H91.93 Active 81817485 Problem Major depressive disorder, recurrent, moderate F33.1 Active 646570142 Problem Antibiotic long-term use Z79.2 Active 566891541 Problem IBS (irritable bowel syndrome) K58.9 Active 71867423 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 85664838 Problem Generalized anxiety disorder F41.1 Active 038305374 Problem Arthralgia M25.50 Active 53792400 ALLERGIES No Information ENCOUNTERS Encounter Location Date Diagnosis [facility] [address] [facility] [id number] [address]- [address] Apr, Osteopenia M85.80 and Generalized anxiety disorder F41.1 [facility] [address] [place] [id number] [address]- 9440 Feb, [facility] [address] [facility] [id number] [address]- 8907 Nov, Depression F32.9 ; Osteopenia M85.80 ; Generalized anxiety disorder F41.1 ; Irritable bowel syndrome without diarrhea K58.9 ; Vitamin D deficiency E55.9 ; Arthralgia M25.50 ; 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 ; General medical exam Z00.00 and Long-term use of high-risk medication Z79.899 [place] [address] [place] [id number] [place] [address] 56815- 6407 Sep, Depression F32.9 and Osteopenia M85.80 [place] [address] [place] [id number] [place] [address] 01571- 8035 Aug, Depression F32.9 [place] [address] 16234- 3822 June, Depression F32.9 [place] [address] [place] [id number] [place] [address] 35212- 2638 May, Depression F32.9 [place] [address] [place] [id number] [place] [address] 05254- 8347 Mar, Depression F32.9 [place] [address] [place] [id number] [place] [address] 51376- 7354 Mar, Depression F32.9 ; 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 ; Irritable bowel syndrome without diarrhea K58.9 ; Symptomatic premature menopause E28.310 ; History of nephrectomy Z90.5 ; Neck pain M54.2 ; Non-healing skin lesion of nose L98.9 and Vitamin D deficiency E55.9 [place] [address] [place] [id number] [place] [address] 87805- 0492 Feb, [place] [address] [place] [address] [id number] [place] [address] 28088- 2213 Jan, [place] [id number] [place] [address] 86814- 6514 Dec, Hearing loss, bilateral H91.93 [place] [address] [place] [address] [id number] [place] [address] 31632- 8969 Nov, [place] [address] [place] [address]- 7335 Nov, [facility] [id number] [place] [address] 51176- 3977 Nov, [facility] [id number] [place] [address] 61144- 0670 Oct, Depression F32.9 ; 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 ; Irritable bowel syndrome without diarrhea K58.9 ; Symptomatic premature menopause E28.310 ; History of nephrectomy Z90.5 and Neck pain M54.2 [place] [address] [place] [address] [id number] [place] [address] 69993- 9183 Sep, [place] [address] [place] [id number] [place] [address] 92283- 2109 Sep, Depression F32.9 ; 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 ; Abnormal finding on CT scan R93.8 ; Irritable bowel syndrome without diarrhea K58.9 ; Symptomatic premature menopause E28.310 ; History of nephrectomy Z90.5 ; Neck pain M54.2 ; Arthralgia M25.50 ; Osteopenia M85.80 and Screening breast examination Z12.39 [place] [address] [place] [id number] [place] [address] 12731- 1204 Sep, [place] [address] [place] [id number] [place] [address] 72445- 8249 June, [place] [address] [place] [id number] [place] [address] 41341- 8272 Mar, Osteopenia M85.80 [place] [id number] [place] [address] 72838- 5831 Feb, Depression F32.9 ; 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 ; Abnormal finding on CT scan R93.8 ; Irritable bowel syndrome without diarrhea K58.9 ; Symptomatic premature menopause E28.310 ; History of nephrectomy Z90.5 ; Neck pain M54.2 and Arthralgia M25.50 [place] [address] [place] [id number] [place] [address] 77742- 7782 Feb, [facility] [address] [address]- 3523 Feb, [facility] [address] [id number] [place] [address] 78818- 1946 Jan, Depression F32.9 ; 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 ; Abnormal finding on CT scan R93.8 ; Irritable bowel syndrome without diarrhea K58.9 ; Symptomatic premature menopause E28.310 ; History of nephrectomy Z90.5 ; Neck pain M54.2 and Arthralgia M25.50 [facility] [address] [place] [address] 04094- 4829 Jan, Depression F32.9 and Generalized anxiety disorder F41.1 [facility] [id number] [place] [address] 44825 -7147 Jan, Halie rash of groin B37.89 ; Antibiotic long-term use Z79.2 and Sinusitis 473.9 [facility] [id number] [place] [address] 60734- 9649 16 Oct, 2014 Unspecified breast screening V76.10 [facility] [address] [place] [address] [id number] [place] [address] 96403- 9029 June, Sinusitis 473.9 [facility] [address] [id number] [place] [address] 71154- 8744 14 May, 2014 [facility] [address] [id number] [place] [address] 02570- 5306 May, [facility] [address] [place] [address] 27567- 0586 Apr, [facility] [address] [id number] [place] [address] 61714- 2186 Mar, [facility] [address] [place] [id number] [place] [address] 49972- 1809 Mar, [facility] [address] [id number] [place] [address] 371036- 0137 Mar, [facility] [place] [facility] [address] [id number] [place] [address]- 5813 Mar, [facility] [place] [facility] [address] [id number] [place] [address]- 8411 Feb, [facility] [place] [facility] [address] [facility] [id number] [place] [address]- 2602 Feb, [facility] [place] [facility] [address] [id number] [place] [address]- 9308 Feb, [facility] [place] [facility] [address] [id number] [place] [address]- 9513 Feb, [facility] [place] [facility] [address] [id number] [place] [address]- 4735 Feb, [facility] [place] [facility] [address] [id number] [place] [address]- 9567 Feb, [facility] [place] [facility] [address] [id number] [place] [address]- 9207 Jan, [facility] [place] [facility] [address] [id number] [place] [address]- 4619 Jan, [facility] [place] [facility] [address] [facility] [id number] [place] [address]- 0794 Dec, [facility] [place] [facility] [address] [id number] [address]- 9630 Dec, [facility] [place] [facility] [address] [id number] [address]- 2245 Nov, [facility] [place] [facility] [address] [id number] [place] [address]- 7745 Nov, [facility] [place] [facility] [address] [id number] [address]- 3341 Oct, [facility] [place] [facility] [address] [id number] [place] [address]- 9237 Oct, [facility] [place] [facility] [address] [address]- 6738 Oct, [facility] [address] 8126 Oct, [facility] [address] [address]- 2147 Nov, [facility] [address] 5976 Nov, [facility] [address] [address]- 4324 Sep, [facility] [address] 5556 Sep, [facility] [address] [address]- 9556 Sep, [facility] [address] [address]- 9590 Jul, [facility] [address] [address]- 2978 June, [facility] [address] [address]- 5675 June, [facility] [address] [address]- 5734 May, [facility] [address] [id number] [address]- 5014 May, [facility] [address] [id number] [address]- 1790 Apr, IMMUNIZATIONS No Known Immunizations SOCIAL HISTORY [...] Dr. Flaherty Medical History Solitary Left Kidney Surgical History hernia repair, hiatal Surgical History cholecystectomy Surgical History tonsillectomy Surgical History appendectomy Surgical History Kidney surgery, right kidney removed 06/1996 Surgical History Otolaryngologic surgery tubes in ears
--- OUTSIDE RECORDS SUMMARY | 2017-10-12 22:24 | XMS REPORT ---
Author Author LAWANDA SHAVER Organization [facility] Address [address] [place] [address] Care Team Providers Care Glass Installer Name Role Phone LAWANDA SHAVER Unavailable PROBLEMS Type Condition ICD9-CM Code ALN25-CC Code Onset Dates Condition Status SNOMED Code Problem History of nephrectomy Z90.5 Active 073569352 Problem Irritable bowel syndrome without diarrhea K58.9 Active 30493099 Problem Depression F32.9 Active 57518108 Problem Vitamin D deficiency E55.9 Active 97449929 Problem Non-healing skin lesion of nose L98.9 Active 97168584 Problem Neck pain M54.2 Active 41369376 Problem Symptomatic premature menopause E28.310 Active 294135871 Problem Osteopenia M85.80 Active 155750250 Problem Abnormal finding on CT scan R93.8 Active 622648907 Problem Hearing loss, bilateral H91.93 Active 32127600 Problem Major depressive disorder, recurrent, moderate F33.1 Active 248416960 Problem Antibiotic long-term use Z79.2 Active 461246330 Problem IBS (irritable bowel syndrome) K58.9 Active 96551467 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 17930581 Problem Generalized anxiety disorder F41.1 Active 166810349 Problem Arthralgia M25.50 Active 36979525 ALLERGIES No Information ENCOUNTERS Encounter Location Date Diagnosis [facility] [id number] [address] Aug, [facility] [address], [place] [address] Aug, Generalized anxiety disorder F41.1 [facility] [id number] [address] Jul, Osteopenia M85.80 [facility] [id number] [place] [address]5542- 3216 June, Generalized anxiety disorder F41.1 [facility] [id number] [place] [address] 85590 -5951 May, Acute nasopharyngitis J00 [facility] [id number] [place] [address] 35479 -1380 May, Sore in nose J34.89 [facility] [address] [address]- [address] Apr, Osteopenia M85.80 and Generalized anxiety disorder F41.1 [place] [address] 75873- 4359 Feb, [facility] [id number] [place] [address] 11691- 6554 Nov, Depression F32.9 ; Osteopenia M85.80 ; Generalized anxiety disorder F41.1 ; Irritable bowel syndrome without diarrhea K58.9 ; Vitamin D deficiency E55.9 ; Arthralgia M25.50 ; 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 ; General medical exam Z00.00 and Long-term use of high-risk medication Z79.899 [place] [id number] [place] [address] 89474- 2570 Sep, Depression F32.9 and Osteopenia M85.80 [place] [id number] [place] [address] 18752- 5257 Aug, Depression F32.9 [place] [id number] [place] [address] 56124- 6217 June, Depression F32.9 [place] [address] 17091- 1824 May, Depression F32.9 [place] [id number] [place] [address] 62321- 0803 Mar, Depression F32.9 [place] [id number] [place] [address] 90881- 5372 Mar, Depression F32.9 ; 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 ; Irritable bowel syndrome without diarrhea K58.9 ; Symptomatic premature menopause E28.310 ; History of nephrectomy Z90.5 ; Neck pain M54.2 ; Non-healing skin lesion of nose L98.9 and Vitamin D deficiency E55.9 [place] [id number] [place] [address] 14592- 2322 Feb, [place] [id number] [place] [address] 47238- 3723 Jan, [place] [id number] [place] [address] 70712- 1960 Dec, Hearing loss, bilateral H91.93 [place] [id number] [place] [address] 00358- 1658 Nov, [place] [id number] [place] [address] 84023- 1674 Nov, [place] [id number] [place] [address] 49766- 0987 Nov, [place] [id number] [place] [address] 58261- 7623 Oct, Depression F32.9 ; 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 ; Irritable bowel syndrome without diarrhea K58.9 ; Symptomatic premature menopause E28.310 ; History of nephrectomy Z90.5 and Neck pain M54.2 [place] [id number] [place] [address] 21626- 8097 Sep, [place] [id number] [place] [address] 93995- 5347 Sep, Depression F32.9 ; 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 ; Abnormal finding on CT scan R93.8 ; Irritable bowel syndrome without diarrhea K58.9 ; Symptomatic premature menopause E28.310 ; History of nephrectomy Z90.5 ; Neck pain M54.2 ; Arthralgia M25.50 ; Osteopenia M85.80 and Screening breast examination Z12.39 [place] [id number] [place] [address] 06758- 7373 Sep, [place] [address] 17890- 7524 June, [place] [id number] [place] [address] 94903- 8652 Mar, Osteopenia M85.80 [place] [id number] [place] [address] 93443- 5481 Feb, Depression F32.9 ; 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 ; Abnormal finding on CT scan R93.8 ; Irritable bowel syndrome without diarrhea K58.9 ; Symptomatic premature menopause E28.310 ; History of nephrectomy Z90.5 ; Neck pain M54.2 and Arthralgia M25.50 [place] [id number] [place] [address] 72763- 2722 Feb, [place] [id number] [place] [address] 95971- 3616 Feb, [place] [id number] [place] [address] 02286- 1372 Jan, Depression F32.9 ; 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 ; Abnormal finding on CT scan R93.8 ; Irritable bowel syndrome without diarrhea K58.9 ; Symptomatic premature menopause E28.310 ; History of nephrectomy Z90.5 ; Neck pain M54.2 and Arthralgia M25.50 [place] [id number] [place] [address] 09863- 9412 Jan, Depression F32.9 and Generalized anxiety disorder F41.1 [facility] [id number] [place] [address] 35249 -7774 Jan, Halie rash of groin B37.89 ; Antibiotic long-term use Z79.2 and Sinusitis 473.9 [place] [id number] [place] [address] 43235- 1282 16 Oct, 2014 Unspecified breast screening V76.10 [facility] [address] [facility] [id number] [address] June, Sinusitis 473.9 [facility] [place] [address] [place] [address] 6[address] May, [facility] [address] [place] [address]- 5676 May, [facility] [place] [address] [facility] [id number], [place] [address]- 5828 Apr, [facility] [id number] [place] [address]- 9495 Mar, [facility] [id number] [place] [address]- 3052 Mar, [facility] [address] [place] [address]- 8864 Mar, [facility] [place] [address] [place] [address]- 0545 Mar, [facility] [place] [address] [place] [address]- 6384 Feb, [facility] [place] [address] [place] [address]- 3113 Feb, [facility] [address] [address]- 9116 Feb, [facility] [id number] [address]- 2721 Feb, [facility] [id number] [place] [address]- 9343 Feb, [facility] [id number] [place] [address]- 4690 Feb, [facility] [id number] [place] [address]- 4442 Jan, [facility] [place] [facility] [address] [id number] [place] [address]- 8107 Jan, [facility] [place] [facility] [address] [id number] [place] [address]- 7180 Dec, [facility] [place] [facility] [address] [id number] [place] [address]- 6003 Dec, [facility] [place] [facility] [address] [id number] [place] [address]- 3864 Nov, [facility] [place] [facility] [address] [id number] [place] [address]- 2039 Nov, [facility] [place] [facility] [address] [id number] [place] [address]- 5521 Oct, [facility] [place] [facility] [address] [id number] [place] [address]- 9602 Oct, [facility] [place] [facility] [address] [id number] [place] [address]- 2722 Oct, [facility] [place] [facility] [address] [id number] [place] [address]- 0867 Oct, [facility] [place] [facility] [address] [id number] [place] [address]- 4644 Nov, [facility] [place] [facility] [address] [id number] [place] [address]- 3087 Nov, [facility] [place] [facility] [address] [id number] [place] [address]- 8226 Sep, [facility] [place] [facility] [address] [id number] [place] [address]- 3462 Sep, [facility] [place] [facility] [address] [id number] [place] [address]- 0091 Sep, [facility] [place] [facility] [address] [id number] [place] [address]- 8896 Jul, [facility] [place] [facility] [address] [id number] [place] [address]- 5379 June, [facility] [address] [facility] [id number], [place] [address]- 8523 June, [facility] [address] [facility] [id number], [place] [address]- 2666 May, [facility] [address] [facility] [id number], [place] [address]- 4666 May, [facility] [address] [facility] [id number], [place] [address]- 3356 Apr, IMMUNIZATIONS No Known Immunizations SOCIAL HISTORY [...]
--- OUTSIDE RECORDS SUMMARY | 2017-10-12 22:24 | XMS REPORT ---
Author Author LAWANDA SHAVER Organization [facility] Address [address] [place] [address] Care Team Providers Care Lead Custodian Name Role Phone LAWANDA SHAVER Unavailable PROBLEMS Type Condition ICD9-CM Code QRG95-QN Code Onset Dates Condition Status SNOMED Code Problem History of nephrectomy Z90.5 Active 521426444 Problem Irritable bowel syndrome without diarrhea K58.9 Active 35414753 Problem Depression F32.9 Active 12740615 Problem Vitamin D deficiency E55.9 Active 48076943 Problem Non-healing skin lesion of nose L98.9 Active 80711257 Problem Neck pain M54.2 Active 52872990 Problem Symptomatic premature menopause E28.310 Active 251223540 Problem Osteopenia M85.80 Active 899353815 Problem Abnormal finding on CT scan R93.8 Active 653251206 Problem Hearing loss, bilateral H91.93 Active 63019305 Problem Major depressive disorder, recurrent, moderate F33.1 Active 346143855 Problem Antibiotic long-term use Z79.2 Active 753725713 Problem IBS (irritable bowel syndrome) K58.9 Active 19537084 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 22127787 Problem Generalized anxiety disorder F41.1 Active 913769202 Problem Arthralgia M25.50 Active 76529304 ALLERGIES No Information ENCOUNTERS Encounter Location Date Diagnosis [facility] [address], [place] [address] May, Sore in nose J34.89 [facility] [id number] [place] [address] 95094- 9915 Apr, Osteopenia M85.80 and Generalized anxiety disorder F41.1 [facility] [address], [place] [address]- 0908 Feb, [facility] [id number] [place] [address] 95775- 0525 Nov, Depression F32.9 ; Osteopenia M85.80 ; Generalized anxiety disorder F41.1 ; Irritable bowel syndrome without diarrhea K58.9 ; Vitamin D deficiency E55.9 ; Arthralgia M25.50 ; 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 ; General medical exam Z00.00 and Long-term use of high-risk medication Z79.899 [place] [address] 30647- 1205 Sep, Depression F32.9 and Osteopenia M85.80 [place] [address] 11940- 6616 Aug, Depression F32.9 [place] [address] 03946- 6631 June, Depression F32.9 [place] [address] 34988- 5045 May, Depression F32.9 [place] [address] 01526- 1700 Mar, Depression F32.9 [place] [address] 63233- 8819 Mar, Depression F32.9 ; 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 ; Irritable bowel syndrome without diarrhea K58.9 ; Symptomatic premature menopause E28.310 ; History of nephrectomy Z90.5 ; Neck pain M54.2 ; Non-healing skin lesion of nose L98.9 and Vitamin D deficiency E55.9 [place] [id number] [place] [address] 55886- 7455 Feb, [place] [address] 60916- 4361 Jan, [place] [address] 24177- 4404 Dec, Hearing loss, bilateral H91.93 [place] [address], [place] [address]- 0686 Nov, [place] [id number] [place] [address] 39295- 1475 Nov, [place] [id number] [place] [address] 62884- 1241 Nov, [place] [id number] [place] [address] 19647- 7479 Oct, Depression F32.9 ; 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 ; Irritable bowel syndrome without diarrhea K58.9 ; Symptomatic premature menopause E28.310 ; History of nephrectomy Z90.5 and Neck pain M54.2 [place] [id number] [place] [address] 51801- 1923 Sep, [place] [id number] [place] [address] 84598- 3288 Sep, Depression F32.9 ; 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 ; Abnormal finding on CT scan R93.8 ; Irritable bowel syndrome without diarrhea K58.9 ; Symptomatic premature menopause E28.310 ; History of nephrectomy Z90.5 ; Neck pain M54.2 ; Arthralgia M25.50 ; Osteopenia M85.80 and Screening breast examination Z12.39 [place] [address] [place] [address] 06698- 7463 Sep, [place] [id number] [place] [address] 19534- 2522 June, [place] [address] [place] [address] 26491- 4154 Mar, Osteopenia M85.80 [place] [id number] [place] [address] 80773- 3592 Feb, Depression F32.9 ; 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 ; Abnormal finding on CT scan R93.8 ; Irritable bowel syndrome without diarrhea K58.9 ; Symptomatic premature menopause E28.310 ; History of nephrectomy Z90.5 ; Neck pain M54.2 and Arthralgia M25.50 [facility] [address], [place] [address]- 6932 Feb, [facility] [id number] [place] [address] 09787- 0981 Feb, [facility] [id number] [place] [address] 06036- 4683 Jan, Depression F32.9 ; 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 ; Abnormal finding on CT scan R93.8 ; Irritable bowel syndrome without diarrhea K58.9 ; Symptomatic premature menopause E28.310 ; History of nephrectomy Z90.5 ; Neck pain M54.2 and Arthralgia M25.50 [facility] [id number] [place] [address] 76782- 4402 Jan, Depression F32.9 and Generalized anxiety disorder F41.1 [facility] [id number] [place] [address] 63286 -2070 Jan, Halie rash of groin B37.89 ; Antibiotic long-term use Z79.2 and Sinusitis 473.9 [facility] [id number] [place] [address] 16214- 4080 Oct, Unspecified breast screening V76.10 [facility] [address] [place] [address] 74336- 1576 June, Sinusitis 473.9 [facility] [id number] [place] [address] 44676- 5000 May, [facility] [id number] [place] [address] 12629- 8334 May, [facility] [id number] [place] [address] 74835- 0558 Apr, [facility] [id number] [place] [address] 23223- 1001 Mar, [facility] [id number] [place] [address] 72883- 9855 Mar, [facility] [place] [facility] [address] [id number] [place] [address]- 3409 Mar, [facility] [place] [facility] [address] [id number] [place] [address]- 0714 Mar, [facility] [place] [facility] [address] [facility] [id number] [place] [address]- 2177 Feb, [facility] [place] [facility] [address] [id number] [place] [address]- 1559 Feb, [facility] [place] [facility] [address] [id number] [place] [address]- 7814 Feb, [facility] [place] [facility] [address] [facility] [id number] [place] [address]- 0862 Feb, [facility] [place] [facility] [address] [facility] [id number] [place] [address]- 6636 Feb, [facility] [place] [facility] [address] [facility] [id number] [place] [address]- 7998 Feb, [facility] [place] [facility] [address] [facility] [id number] [place] [address]- 7960 Jan, [facility] [place] [facility] [address] [facility] [id number] [place] [address]- 9729 Jan, [facility] [place] [facility] [address] [facility] [id number] [place] [address]- 6894 Dec, [facility] [place] [facility] [address] [facility] [id number], [place] [address]- 8214 Dec, [facility] [place] [facility] [address] [id number] [place] [address]- 8583 Nov, [facility] [place] [facility] [address] [facility] [id number] [place] [address]- 3346 Nov, [facility] [place] [facility] [address] [facility] [id number], [place] [address]- 6891 Oct, [facility] [place] [facility] [address] [facility] [id number], [place] [address]- 1966 Oct, [facility] [address] [facility] [id number], [place] [address]- 0420 Oct, [facility] [address] [facility] [id number], [place] [address]- 7537 Oct, [facility] [address] [facility] [id number][place]- 5167 Nov, [facility] [address] [facility] [id number], [place] [address]- 0196 Nov, [facility] [address] [facility] [id number], [place] [address]- 9199 Sep, [facility] [address] 9007 Sep, [facility] [address], [place] [address]- 9828 Sep, [facility] [address], [place] [address]- 8613 Jul, [facility] [address], [place] [address]- 0699 June, [facility] [address], [place] [address]- 1132 June, [facility] [address], [place] [address]- 2172 May, [facility] [id number] 5196 May, [facility] [id number] 0154 Apr, IMMUNIZATIONS No Known Immunizations SOCIAL HISTORY Never Assessed REASON FOR VISIT medication refill request PLAN OF CARE VITAL SIGNS MEDICATIONS Medication Instructions Dosage Frequency Start Date End Date Duration Status Clonazepam 1 MG Orally Once a day at hs prn 1 tablet 28 days Active Fosamax 70 MG Orally weekly 1 tablet 03 Feb, 2016 Active RESULTS No Results PROCEDURES No Known [...]
--- OUTSIDE RECORDS SUMMARY | 2017-10-12 22:25 | XMS REPORT ---
Author Author LAWANDA SHAVER Organization [facility] Address [address] [place] [address] Care Team Providers Care Calender Let Off Helper Name Role Phone SIVAKUMAR LAWANDA Unavailable PROBLEMS Type Condition ICD9-CM Code [id number] Code Onset Dates Condition Status SNOMED Code Problem History of nephrectomy Z90.5 Active 495485875 Problem Irritable bowel syndrome without diarrhea K58.9 Active 54957004 Problem Depression F32.9 Active 99457290 Problem Vitamin D deficiency E55.9 Active 65137445 Problem Non-healing skin lesion of nose L98.9 Active 19851635 Problem Neck pain M54.2 Active 25333711 Problem Symptomatic premature menopause E28.310 Active 256245963 Problem Osteopenia M85.80 Active 068675602 Problem Abnormal finding on CT scan R93.8 Active 523691116 Problem Hearing loss, bilateral H91.93 Active 96437744 Problem Major depressive disorder, recurrent, moderate F33.1 Active 906418029 Problem Antibiotic long-term use Z79.2 Active 380992864 Problem IBS (irritable bowel syndrome) K58.9 Active 59003398 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 97324977 Problem Generalized anxiety disorder F41.1 Active 736546364 Problem Arthralgia M25.50 Active 01540361 ALLERGIES No Information ENCOUNTERS Encounter Location Date Diagnosis [facility] [address] [address] Jul, Osteopenia M85.80 [facility] [address] [address] June, Generalized anxiety disorder F41.1 [facility] [address] [address] May, Acute nasopharyngitis J00 [facility] [id number] [place] [address] May, Sore in nose J34.89 [place] [address] [address] Apr, Osteopenia M85.80 and Generalized anxiety disorder F41.1 [place] [address] 18[address]- 30[address] Feb, [place] [address] 16079- 6067 Nov, Depression F32.9 ; Osteopenia M85.80 ; Generalized anxiety disorder F41.1 ; Irritable bowel syndrome without diarrhea K58.9 ; Vitamin D deficiency E55.9 ; Arthralgia M25.50 ; 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 ; General medical exam Z00.00 and Long-term use of high-risk medication Z79.899 [place] [address] [address] Sep, Depression F32.9 and Osteopenia M85.80 [place] [address] [address] Aug, Depression F32.9 [place] [address] [address]5811- 4872 June, Depression F32.9 [place] [address] 75919- 6359 May, Depression F32.9 [place] [address] 94130- 9147 Mar, Depression F32.9 [place] [address] 59395- 1409 Mar, Depression F32.9 ; 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 ; Irritable bowel syndrome without diarrhea K58.9 ; Symptomatic premature menopause E28.310 ; History of nephrectomy Z90.5 ; Neck pain M54.2 ; Non-healing skin lesion of nose L98.9 and Vitamin D deficiency E55.9 [place] [id number] [place] [address] 96438- 7821 Feb, [place] [id number] [place] [address] 38957- 5521 Jan, [place] [id number] [place] [address] 12988- 9991 Dec, Hearing loss, bilateral H91.93 [place] [id number] [place] [address] 23032- 2218 Nov, [place] [id number] [place] [address] 80487- 7055 Nov, [place] [id number] [place] [address] 00067- 2977 Nov, [place] [id number] [place] [address] 00938- 3137 Oct, Depression F32.9 ; 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 ; Irritable bowel syndrome without diarrhea K58.9 ; Symptomatic premature menopause E28.310 ; History of nephrectomy Z90.5 and Neck pain M54.2 [place] [id number] [place] [address] 07544- 1380 Sep, [place] [id number] [place] [address] 84143- 9722 Sep, Depression F32.9 ; 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 ; Abnormal finding on CT scan R93.8 ; Irritable bowel syndrome without diarrhea K58.9 ; Symptomatic premature menopause E28.310 ; History of nephrectomy Z90.5 ; Neck pain M54.2 ; Arthralgia M25.50 ; Osteopenia M85.80 and Screening breast examination Z12.39 [place] [id number] [place] [address] 29389- 0231 Sep, [place] [id number] [place] [address] 86056- 6108 June, [place] [id number] [place] [address] 54392- 0600 Mar, Osteopenia M85.80 [place] [address] 27094- 1782 Feb, Depression F32.9 ; 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 ; Abnormal finding on CT scan R93.8 ; Irritable bowel syndrome without diarrhea K58.9 ; Symptomatic premature menopause E28.310 ; History of nephrectomy Z90.5 ; Neck pain M54.2 and Arthralgia M25.50 [place] [id number] [place] [address] 53273- 1817 Feb, [place] [address] [address]19- 0426 Feb, [place] [address] 12173- 9620 Jan, Depression F32.9 ; 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 ; Abnormal finding on CT scan R93.8 ; Irritable bowel syndrome without diarrhea K58.9 ; Symptomatic premature menopause E28.310 ; History of nephrectomy Z90.5 ; Neck pain M54.2 and Arthralgia M25.50 [place] [id number] [place] [address] 18533- 4663 Jan, Depression F32.9 and Generalized anxiety disorder F41.1 [facility] [id number] [place] [address]28 [address] Jan, Halie rash of groin B37.89 ; Antibiotic long-term use Z79.2 and Sinusitis 473.9 [place] [id number] [place] [address] 20269- 4096 Oct, Unspecified breast screening V76.10 [place] [id number] [place] [address] 23720- 7875 June, Sinusitis 473.9 [place] [address] 49697- 6010 May, [facility] [place] [facility] [address] [id number] [place] [address] May, [facility] [place] [facility] [address] [id number] [place] [address] 4024 Apr, [facility] [place] [facility] [address] [id number] [place] [address]- 9710 Mar, [facility] [place] [facility] [address] [id number] [place] [address]- 1210 Mar, [facility] [place] [facility] [address] [id number] [place] [address]- 6917 Mar, [facility] [place] [facility] [address] [id number] [place] [address] 1930 Mar, [facility] [place] [facility] [address] [facility] [id number] [place] [address]- 0635 Feb, [facility] [place] [facility] [address] [id number] [place] [address]- 9929 Feb, [facility] [place] [facility] [address] [id number] [place] [address]- 0751 Feb, [facility] [place] [facility] [address] [facility] [id number] [place] [address]- 4822 Feb, [facility] [place] [facility] [address] [id number] [place] [address]- 5303 Feb, [facility] [place] [facility] [address] [id number], [place] [address] 8076 Feb, [facility] [place] [facility] [address] [facility] [id number] [place] [address]- 3102 Jan, [facility] [place] [facility] [address] [id number] [place] [address]- 3509 Jan, [facility] [place] [facility] [address] [facility] [id number] [place] [address]- 9134 Dec, [facility] [place] [facility] [address] [id number] [place] [address]- 0831 Dec, [facility] [place] [facility] [address] [id number] [place] [address]- 9430 30 Nov, 2013 [facility] [place] [facility] [address] [id number] [place] [address]- 5930 30 Nov, 2013 [facility] [place] [facility] [address] [id number] [place] [address]- 6677 Oct, [facility] [place] [facility] [address] [id number] [place] [address]- 0389 Oct, [facility] [place] [facility] [address] [id number] [place] [address]- 0864 Oct, [facility] [place] [facility] [address] [id number] [place] [address]- 4971 Oct, [facility] [place] [facility] [address] [id number] [place] [address]- 2688 Nov, [facility] [place] [facility] [address] [id number] [place] [address]- 5369 Nov, [facility] [place] [facility] [address] [id number] [place] [address]- 6480 Sep, [facility] [place] [facility] [address] [id number] [place] [address]- 4261 Sep, [facility] [place] [facility] [address] [id number] [place] [address]- 0819 Sep, [facility] [place] [facility] [address] [id number] [place] [address]- 5777 Jul, [facility] [place] [facility] [address] [id number] [place] [address]- 2767 June, [facility] [place] [facility] [address] [id number] [place] [address]- 6774 June, [facility] [place] [facility] [address] [id number] [place] [address] May, [facility] [address] [facility] [id number] [place] [address]- 6127 May, [facility] [address] [facility] [id number][place] [address] Apr, IMMUNIZATIONS No Known Immunizations SOCIAL HISTORY Never Assessed REASON FOR VISIT requesting return call PLAN OF CARE VITAL SIGNS MEDICATIONS Unknown Medications RESULTS No Results PROCEDURES No Known procedures [...]
--- OUTSIDE RECORDS SUMMARY | 2017-10-12 22:26 | XMS REPORT ---
Author Author LAWANDA SHAVER [facility] Address [address] [place] [address] Care Team Providers Care Escrow Closer Name Role Phone JOSEVance LAWANDA Unavailable PROBLEMS Type Condition ICD9-CM Code VMI93-SW Code Onset Dates Condition Status SNOMED Code Problem History of nephrectomy Z90.5 Active 188275459 Problem Irritable bowel syndrome without diarrhea K58.9 Active 71628181 Problem Depression F32.9 Active 15849405 Problem Vitamin D deficiency E55.9 Active 71403497 Problem Non-healing skin lesion of nose L98.9 Active 51290893 Problem Neck pain M54.2 Active 19014742 Problem Symptomatic premature menopause E28.310 Active 404870909 Problem Osteopenia M85.80 Active 997606566 Problem Abnormal finding on CT scan R93.8 Active 488390059 Problem Hearing loss, bilateral H91.93 Active 64543663 Problem Major depressive disorder, recurrent, moderate F33.1 Active 857259963 Problem Antibiotic long-term use Z79.2 Active 468687008 Problem IBS (irritable bowel syndrome) K58.9 Active 54828953 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 15714740 Problem Generalized anxiety disorder F41.1 Active 963417013 Problem Arthralgia M25.50 Active 46462142 ALLERGIES Substance Reaction Event Type Date Status Sulfamethoxazole-Trimethoprim Unknown Drug Allergy Nov, Active Percocet Unknown Drug Allergy Nov, Active ENCOUNTERS Encounter Location Date Diagnosis [facility] [id number], [place] [address] May, Acute nasopharyngitis J00 [facility] [id number], [place] [address] May, Sore in nose J34.89 [facility] [id number] [place] [address] 03666- 1074 Apr, Osteopenia M85.80 and Generalized anxiety disorder F41.1 [place] [id number] [place] [address] 68523- 4632 Feb, [place] [id number] [place] [address] 43213- 4280 Nov, Depression F32.9 ; Osteopenia M85.80 ; Generalized anxiety disorder F41.1 ; Irritable bowel syndrome without diarrhea K58.9 ; Vitamin D deficiency E55.9 ; Arthralgia M25.50 ; 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 ; General medical exam Z00.00 and Long-term use of high-risk medication Z79.899 [place] [id number] [place] [address] 36497- 0838 Sep, Depression F32.9 and Osteopenia M85.80 [place] [address] 18488- 7093 Aug, Depression F32.9 [place] [id number] [place] [address] 00169- 8696 June, Depression F32.9 [place] [address] 67954- 3721 May, Depression F32.9 [place] [id number] [place] [address] 48812- 8562 Mar, Depression F32.9 [place] [address] 99401- 2615 Mar, Depression F32.9 ; 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 ; Irritable bowel syndrome without diarrhea K58.9 ; Symptomatic premature menopause E28.310 ; History of nephrectomy Z90.5 ; Neck pain M54.2 ; Non-healing skin lesion of nose L98.9 and Vitamin D deficiency E55.9 [place] [id number] [place] [address] 22176- 9825 Feb, [place] [id number] [place] [address] 86234- 4408 Jan, [place] [id number] [place] [address] 45640- 8455 Dec, Hearing loss, bilateral H91.93 [place] [id number] [place] [address] 19689- 8516 Nov, [place] [address] 76331- 7135 Nov, [place] [id number] [place] [address] 83370- 5463 Nov, [place] [id number] [place] [address] 44887- 0728 Oct, Depression F32.9 ; 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 ; Irritable bowel syndrome without diarrhea K58.9 ; Symptomatic premature menopause E28.310 ; History of nephrectomy Z90.5 and Neck pain M54.2 [place] [id number] [place] [address] 15810- 9861 Sep, [place] [id number] [place] [address] 55891- 0957 Sep, Depression F32.9 ; 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 ; Abnormal finding on CT scan R93.8 ; Irritable bowel syndrome without diarrhea K58.9 ; Symptomatic premature menopause E28.310 ; History of nephrectomy Z90.5 ; Neck pain M54.2 ; Arthralgia M25.50 ; Osteopenia M85.80 and Screening breast examination Z12.39 [place] [id number] [place] [address] 23864- 7472 Sep, [place] [id number] [place] [address] 75824- 3840 June, [place] [id number] [place] [address] 07835- 0804 Mar, Osteopenia M85.80 [place] [address] [place] [address]- 1857 Feb, Depression F32.9 ; 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 ; Abnormal finding on CT scan R93.8 ; Irritable bowel syndrome without diarrhea K58.9 ; Symptomatic premature menopause E28.310 ; History of nephrectomy Z90.5 ; Neck pain M54.2 and Arthralgia M25.50 [facility] [id number] [place] [address] 91540- 4425 Feb, [facility] [address] 57914- 7257 Feb, [place] [address] 35639- 8416 Jan, Depression F32.9 ; 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 ; Abnormal finding on CT scan R93.8 ; Irritable bowel syndrome without diarrhea K58.9 ; Symptomatic premature menopause E28.310 ; History of nephrectomy Z90.5 ; Neck pain M54.2 and Arthralgia M25.50 [place] [id number] [place] [address] 94260- 9070 Jan, Depression F32.9 and Generalized anxiety disorder F41.1 [facility] [id number] [place] [address] 94607 -9644 Jan, Halie rash of groin B37.89 ; Antibiotic long-term use Z79.2 and Sinusitis 473.9 [place] [id number] [place] [address] 34760- 7174 16 Oct, 2014 Unspecified breast screening V76.10 [facility] [id number] [place] [address] 60671- 9582 June, Sinusitis 473.9 [place] [id number] [place] [address] 77954- 5210 14 May, 2014 [facility] [id number] [place] [address] 44571- 0771 May, [place] [address] [place] [address]- 1763 Apr, [facility] [place] [facility] [address] [id number] [place] [address]- 8423 Mar, [facility] [place] [facility] [address] [id number] [place] Mar, 2014 [facility] [place] [facility] [address] [id number] [place] [address]- 0038 Mar, [facility] [place] [facility] [address] [id number] [place] [address]- 5263 Mar, [facility] [place] [facility] [address] [id number] [place] [address]- 5677 Feb, [facility] [place] [facility] [address] [facility] [id number] [place] [address]- 5188 Feb, [facility] [place] [facility] [address] [facility] [id number] [place] [address]- 5029 Feb, [facility] [place] [facility] [address] [facility] [id number] [place] [address]- 5192 Feb, [facility] [place] [facility] [address] [facility] [id number] [place] [address]- 2508 Feb, [facility] [place] [facility] [address] [facility] [id number] [place] [address]- 2910 Feb, [facility] [place] [facility] [address] [facility] [id number] [place] [address]- 1676 Jan, [facility] [place] [facility] [address] [id number] [place] [address]- 1225 Jan, [facility] [place] [facility] [address] [id number] [place] [address]- 3843 Dec, [facility] [place] [facility] [address] [id number] [place] [address]- 3060 Dec, [facility] [place] [facility] [address] [id number] [place] [address]- 3785 Nov, [facility] [place] [facility] [address] [id number] [place] [address]- 8993 30 Nov, 2013 [facility] [place] [facility] [address] [id number] [place] [address]- 4162 Oct, [facility] [place] [facility] [address] [id number] [place] [address]- 5606 Oct, [facility] [place] [facility] [address] [id number] [place] [address]- 7790 Oct, [facility] [place] [facility] [address] [id number] [place] [address]- 1562 Oct, [facility] [place] [facility] [address] [id number] [place] [address]- 4832 Nov, [facility] [place] [facility] [address] [id number] [place] [address]- 6743 Nov, [facility] [place] [facility] [address] [id number] [place] [address]- 9375 Sep, [facility] [place] [facility] [address] [id number] [place] [address]- 6946 Sep, [facility] [place] [facility] [address] [id number] [place] [address]- 0034 Sep, [facility] [place] [facility] [address] [id number] [place] [address]- 3828 Jul, [facility] [place] [facility] [address] [id number], [place] [address]- 3685 June, [facility] [place] [facility] [address] [id number] [place] [address]- 9845 June, [facility] [place] [facility] [address] [id number] [place] [address]- 1287 May, [facility] [place] [facility] [address] [id number] [place] [address] May, [facility] [place] [facility] [address] [id number] [place] [address]- 2799 Apr, IMMUNIZATIONS No Known Immunizations SOCIAL HISTORY Never Assessed REASON FOR VISIT med managment -- andreas higgins, needing refills on diclofenac and fosamax PLAN OF CARE Activity Details Follow Up 6 Months Reason:BH/Osteopenia VITAL SIGNS Height 55 in 2016-11-08 Weight 126.6 lbs 2016-11-08 Temperature 97.0 degrees Fahrenheit 2016-11-08 Heart Rate 72 bpm 2016-11-08 Respiratory Rate 18 2016-11-08 BMI 29.42 kg/m2 2016-11-08 Blood pressure systolic 130 mmHg 2016-11-08 Blood pressure diastolic 76 mmHg 2016-11-08 MEDICATIONS Medication Instructions Dosage Frequency Start Date End Date Duration Status Duloxetine HCl 30 MG Orally daily 1 capsule 24h 30 Active Diclofenac Sodium CR 75 mg oral two times per day 1 tablet Active Fosamax 70 MG Orally weekly 1 tablet Active Clonazepam 1 MG Orally Once a day at hs prn 1 tablet 28 days Active Vitamin D 2000 UNIT Orally Once a day 2 tablet 24h Active Bentyl 10 mg oral bid prn 1 Capsule Active RESULTS Name Result Date Reference Range LIPID PANEL 2016-11-08 Cholesterol, Total 199 100-199 Triglycerides 154 0-149 HDL Cholesterol 47 >39 VLDL Cholesterol Kevin 31 5-40 LDL Cholesterol Calc 121 0-99 Comment: CMP 2016-11-08 Glucose, Serum 82 65-99 BUN 19 6-24 Creatinine, Serum 0.66 0.57-1.00 eGFR If NonAfricn Am 107 >59 eGFR If Africn Am 123 >59 BUN/Creatinine Ratio 29 9-23 Sodium, Serum 142 134-144 Potassium, Serum 4.5 3.5-5.2 Chloride, Serum 102 96-106 Carbon Dioxide, Total 23 18-29 Calcium, Serum 9.1 8.7-10.2 Protein, Total, Serum 6.4 6.0-8.5 Albumin, Serum 4.1 3.5-5.5 Globulin, Total 2.3 1.5-4.5 A/G Ratio 1.8 1.2-2.2 Bilirubin, Total 0.4 0.0-1.2 Alkaline Phosphatase, S 71 39-117 AST (SGOT) 18 0-40 ALT (SGPT) 26 0-32 PROCEDURES Procedure Date Ordered Result Body Site LIPID PANEL Nov 08, 2016 COMPREHEN METABOLIC PANEL Nov 08, 2016 VENIPUNCT, ROUTINE* Nov 08, 2016 INSTRUCTIONS MEDICATIONS ADMINISTERED No Known Medications MEDICAL [...]
--- OUTSIDE RECORDS SUMMARY | 2017-10-12 22:27 | XMS REPORT | Continuity of Care Document ---
Author Author [facility] Ctr of [facility] Ctr of [facility] Address Unknown Phone Unavailable Allergies Active Description Code Type Severity Reaction Onset Reported/Identified Relationship to Patient Clinical Status Yes acetaminophen [id number] Drug Allergy Mild N/V 11/05/2012 Yes oxycodone HCl [id number] Drug Allergy Mild N/V 11/05/2012 Yes Sulfa (Sulfonamide Antibiotics) [id number] Drug Allergy Mild RASH 2012 Medications There [...] - ROUTINE H&P 11/05/2012 VENTURA GRANADOS, KIMBERLY Jimenze Ot 788.0 11/05/2012 VENTURA GRANADOS, KIMBERLY Jimenez [...] ABDOMINAL PAIN, LEFT LOWER QUADRANT 10/30/2013 ELLIE NEURODIAGNOSTIC TECH, CANDELARIO R 789.00 ABDOMINAL PAIN UNSPECIFIED SITE 10/30/2013 ELLIE NEURODIAGNOSTIC TECH, CANDELARIO R 789.00 ABDOMINAL PAIN UNSPECIFIED SITE 10/30/2013 ELLIE CALDWELL, CANDELARIO R 789.00 ABDOMINAL PAIN UNSPECIFIED SITE 10/30/2013 LIBERTAD OROSCO DO K 789.00 ABDOMINAL PAIN UNSPECIFIED SITE 12/05/2013 ELLIE CALDWELL, CANDELARIO R 564.1 IRRITABLE BOWEL SYNDROME 12/05/2013 ARTHUR ARGUETA APRNINA R 564.1 IRRITABLE BOWEL SYNDROME 12/05/2013 LIBERTAD OROSCO DO 564.1 IRRITABLE BOWEL SYNDROME 12/22/2013 STACY CERRATO NEURODIAGNOSTIC TECH Ot 558.9 NONINF GASTROENTERIT NEC 12/22/2013 STACY CERRATO NEURODIAGNOSTIC TECH Ot 789.04 ABDOMINAL PAIN, LEFT LOWER QUADRANT 01/28/2014 OPAL DAVIS MD Ot 455.0 INT HEMORRHOID W/O COMPL 01/28/2014 OPAL DAVIS MD Ot 455.3 EXT HEMORRHOID W/O COMPL 01/28/2014 OPAL DAVIS MD Ot 787.99 OTHER GI SYSTEM SYMPTOMS 03/04/2014 LIBERTAD OROSCO DO V07.4 HORMONE REPLACEMENT THERAPY (POSTMENOPAUSAL) 03/04/2014 LIBERTAD OROSCO DO V72.31 INSPECTOR PURCHASED PARTS EXAM, ROUTINE 03/04/2014 LIBERTAD OROSCO DO V72.62 [...] ACQUIRED ABSENCE OF KIDNEY 10/27/2015 LAWANDA SHAVER [place] [employer] Ot Z12.31 ENCNTR SCREEN MAMMOGRAM FOR MALIGNANT NE 11/13/2015 LAWANDA SHAVER [place] [employer] Ot Z12.31 ENCNTR SCREEN MAMMOGRAM FOR MALIGNANT NE 12/09/2016 OPAL DAVIS MD Ot V72.84 EXAM PRE-OPERATIVE NOS 12/09/2016 OROSCO DO, LIBERTAD K Ot V76.12 OTH SCREEN MAMMO-MALIGN NEOPLASM OF JORDAN 12/09/2016 Ot E28.310 SYMPTOMATIC PREMATURE MENOPAUSE 12/09/2016 Ot M85.80 OTH DISRD OF BONE DENSITY AND STRUCTURE, 12/09/2016 Ot 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, UNSPECIFIED 12/09/2016 MADLLAWANDA [place] [employer] Ot Z12.31 ENCNTR SCREEN MAMMOGRAM FOR MALIGNANT [...] 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, UNSPECIFIED 12/09/2016 MADLTOANLAWANDA [place] [employer] Ot Z12.31 ENCNTR SCREEN MAMMOGRAM FOR MALIGNANT [...] Z12.31 ENCNTR SCREEN MAMMOGRAM FOR MALIGNANT NE 01/30/2017 ROSAMARIA CALIXTO MD Ot A08.4 VIRAL INTESTINAL INFECTION, UNSPECIFIED 01/30/2017 ROSAMARIA CALIXTO MD Ot F32.9 MAJOR DEPRESSIVE DISORDER, SINGLE EPISOD 01/30/2017 ROSAMARIA CALIXTO MD Ot F41.9 ANXIETY DISORDER, UNSPECIFIED 01/30/2017 ROSAMARIA CALIXTO MD Ot J06.9 ACUTE UPPER RESPIRATORY INFECTION, UNSPE 01/30/2017 ROSAMARIA CALIXTO MD Ot 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, UNSPECIFIED 01/30/2017 ROSAMARIA CALIXTO MD Ot R09.81 NASAL CONGESTION 01/30/2017 ROSAMARIA CALIXTO MD Ot Z87.19 PERSONAL HISTORY OF OTHER DISEASES OF TH 01/30/2017 ROSAMARIA CALIXTO MD Ot Z87.448 PERSONAL HISTORY OF OTHER DISEASES OF UR 01/30/2017 ROSAMARIA CALIXTO MD Ot Z90.49 ACQUIRED ABSENCE OF OTHER SPECIFIED PART 01/30/2017 ROSAMARIA CALIXTO MD Ot Z90.5 ACQUIRED ABSENCE OF KIDNEY 01/30/2017 ROSAMARIA CALIXTO MD Ot Z90.89 ACQUIRED ABSENCE OF OTHER ORGANS 01/30/2017 DURGA GRANADOS, ROSAMARIA Ortega Ot Z98.890 OTHER SPECIFIED POSTPROCEDURAL STATES 08/03/2017 OPAL DAVIS MD Ot V72.84 EXAM PRE-OPERATIVE NOS 08/03/2017 LIBERTAD OROSCO DO Ot V76.12 OTH SCREEN MAMMO-MALIGN NEOPLASM OF JORDAN 08/03/2017 Ot E28.310 SYMPTOMATIC PREMATURE MENOPAUSE 08/03/2017 Ot M85.80 OTH DISRD OF BONE DENSITY AND STRUCTURE, 08/03/2017 Ot 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, UNSPECIFIED 08/03/2017 JOSELAWANDA Woodard [facility] [facility] Ot Z12.31 ENCNTR SCREEN MAMMOGRAM FOR MALIGNANT NE 08/07/2017 CAROLIN ARANGO NORBERT B Ot K56.699 OTHER INTESTNL OBST UNSP TO PARTIAL V 08/07/2017 CAROLIN DO NORBERT B Ot 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 08/07/2017 CAROLIN DO NORBERT B Ot 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 08/07/2017 CAROLIN DO NORBERT B Ot C7B.09 SECONDARY CARCINOID TUMORS OF OTHER SITE 08/07/2017 CAROLIN DO NORBERT B Ot K43.0 INCISIONAL HERNIA WITH OBSTRUCTION, WITH 08/07/2017 DELCARRIE DO NORBERT B Ot K56.690 OTHER PARTIAL INTESTINAL OBSTRUCTION 08/07/2017 CAROLIN DO NORBERT B Ot K56.699 OTHER INTESTNL OBST UNSP TO PARTIAL V 08/07/2017 DELMAN DO, NORBERT B Ot M19.90 UNSPECIFIED OSTEOARTHRITIS, UNSPECIFIED 08/07/2017 CAROLIN DO NORBERT B Ot Z90.5 ACQUIRED ABSENCE OF KIDNEY 08/15/2017 OPAL DAVIS MD Ot V72.84 EXAM PRE-OPERATIVE NOS 08/15/2017 LIBERTAD OROSCO DO Ot V76.12 OTH SCREEN MAMMO-MALIGN NEOPLASM OF JORDAN 08/15/2017 Ot E28.310 SYMPTOMATIC PREMATURE MENOPAUSE 08/15/2017 Ot M85.80 OTH DISRD OF BONE DENSITY AND STRUCTURE, 08/15/2017 Ot 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, UNSPECIFIED 08/15/2017 LAWANDA SHAVER [place] Ot Z12.31 ENCNTR SCREEN MAMMOGRAM FOR MALIGNANT NE 08/16/2017 CAROLIN ARANGO, NORBERT B Ot C7A.00 MALIGNANT CARCINOID TUMOR OF UNSPECIFIED 08/29/2017 CAROLIN ARANGO, NORBERT B Ot C7A.00 MALIGNANT CARCINOID TUMOR OF UNSPECIFIED 08/30/2017 OPAL DAVIS MD Ot V72.84 EXAM PRE-OPERATIVE NOS 08/30/2017 LIBERTAD OROSCO DO Ot V76.12 OTH SCREEN MAMMO-MALIGN NEOPLASM OF JORDAN 08/30/2017 Ot E28.310 SYMPTOMATIC PREMATURE MENOPAUSE 08/30/2017 Ot M85.80 OTH DISRD OF BONE DENSITY AND STRUCTURE, 08/30/2017 Ot 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, UNSPECIFIED 08/30/2017 LAWANDA SHAVER [place] [employer] Ot Z12.31 ENCNTR SCREEN MAMMOGRAM FOR MALIGNANT NE 08/30/2017 KALPANA COE DOIC B Ot C7A.00 MALIGNANT CARCINOID TUMOR OF UNSPECIFIED Procedures Code Description [place] [address] ROUTINE VENIPUNCTURE 09/21/2012 24566 CBC 09/21/2012 64358 LIPID PANEL 09/21/2012 78642 CMP 09/21/2012 [id number] GFR CALC (RESULT ONLY) 09/21/2012 04670 TSH 09/21/2012 13077 T4 FREE 09/21/2012 [id number] EXCISION OF ILEUM, OPEN APPROACH 08/04/2017 [id number] EXCISION OF CECUM, OPEN APPROACH 08/04/2017 [id number] REPAIR ABDOMINAL WALL, OPEN APPROACH 08/04/2017 Results Test Result Range Comp. Metabolic Panel (14) - 03/10/16 11:39 Glucose, Serum 85 mg/dL 65-99 BUN 16 mg/dL 6-24 Creatinine, Serum 0.66 mg/dL 0.57-1.00 eGFR If NonAfricn Am 108 mL/min/1.73 >59 eGFR If Africn Am 124 mL/min/1.73 >59 BUN/Creatinine Ratio 24 9-23 Sodium, Serum 142 mmol/L 134-144 Potassium, Serum 4.4 mmol/L 3.5-5.2 Chloride, Serum 102 mmol/L 96-106 Carbon Dioxide, Total 25 mmol/L 18-29 Calcium, Serum 8.8 mg/dL 8.7-10.2 Protein, Total, Serum 6.5 g/dL 6.0-8.5 Albumin, Serum 4.4 g/dL 3.5-5.5 Globulin, Total 2.1 g/dL 1.5-4.5 A/G Ratio 2.1 1.1-2.5 Bilirubin, Total 0.4 mg/dL 0.0-1.2 Alkaline Phosphatase, S 70 IU/L 39-117 AST (SGOT) 25 IU/L 0-40 ALT (SGPT) 31 IU/L 0-32 Vitamin D, 25-Hydroxy - 03/10/16 11:39 Vitamin D, 25-Hydroxy 50.1 ng/mL 30.0-100.0 Comp. Metabolic Panel (14) - 11/08/16 09:29 Glucose, Serum 82 mg/dL 65-99 BUN 19 mg/dL 6-24 Creatinine, Serum 0.66 mg/dL 0.57-1.00 eGFR If NonAfricn Am 107 mL/min/1.73 >59 eGFR If Africn Am 123 mL/min/1.73 >59 BUN/Creatinine Ratio 29 9-23 Sodium, Serum 142 mmol/L 134-144 Potassium, Serum 4.5 mmol/L 3.5-5.2 Chloride, Serum 102 mmol/L 96-106 Carbon Dioxide, Total 23 mmol/L 18-29 Calcium, Serum 9.1 mg/dL 8.7-10.2 Protein, Total, Serum 6.4 g/dL 6.0-8.5 Albumin, Serum 4.1 g/dL 3.5-5.5 Globulin, Total 2.3 g/dL 1.5-4.5 A/G Ratio 1.8 1.2-2.2 Bilirubin, Total 0.4 mg/dL 0.0-1.2 Alkaline Phosphatase, S 71 IU/L 39-117 AST (SGOT) 18 IU/L 0-40 ALT (SGPT) 26 IU/L 0-32 Lipid Panel - 11/08/16 09:29 Cholesterol, Total 199 mg/dL 100-199 Triglycerides 154 mg/dL 0-149 HDL Cholesterol 47 mg/dL >39 VLDL Cholesterol Kevin 31 mg/dL 5-40 LDL Cholesterol Calc 121 mg/dL 0-99 LIPID PANEL - 11/08/16 09:29 Cholesterol, Total 199 mg/dL 100-199 Triglycerides 154 mg/dL 0-149 HDL Cholesterol 47 mg/dL >39 VLDL Cholesterol Kevin 31 mg/dL 5-40 LDL Cholesterol Calc 121 mg/dL 0-99 Comment: NRG CMP - 11/08/16 09:29 Glucose, Serum 82 mg/dL 65-99 BUN 19 mg/dL 6-24 Creatinine, Serum 0.66 mg/dL 0.57-1.00 eGFR If NonAfricn Am 107 mL/min/1.73 >59 eGFR If Africn Am 123 mL/min/1.73 >59 BUN/Creatinine Ratio 29 9-23 Sodium, Serum 142 mmol/L 134-144 Potassium, Serum 4.5 mmol/L 3.5-5.2 Chloride, Serum 102 mmol/L 96-106 Carbon Dioxide, Total 23 mmol/L 18-29 Calcium, Serum 9.1 mg/dL 8.7-10.2 Protein, Total, Serum 6.4 g/dL 6.0-8.5 Albumin, Serum 4.1 g/dL 3.5-5.5 Globulin, Total 2.3 g/dL 1.5-4.5 A/G Ratio 1.8 1.2-2.2 Bilirubin, Total 0.4 mg/dL 0.0-1.2 Alkaline Phosphatase, S 71 IU/L 39-117 AST (SGOT) 18 IU/L 0-40 ALT (SGPT) 26 IU/L 0-32 Complete urinalysis with reflex to culture - [...] - 12/09/16 05:00 Lipase 32 U/L 8-78 Complete blood count (CBC) with automated white blood cell (WBC) differential - 01/30/17 17:30 Blood leukocytes automated count (number/volume) 14.6 10*3/uL 4.3-11.0 Blood erythrocytes automated count (number/volume) 4.99 10*6/uL 4.35-5.85 Venous blood hemoglobin measurement (mass/volume) 15.2 g/dL 11.5-16.0 Blood hematocrit (volume fraction) 44 % 35-52 Automated erythrocyte mean corpuscular volume 88 [foz_us] 80-99 Automated erythrocyte mean corpuscular hemoglobin (mass per erythrocyte) 31 pg 25-34 Automated erythrocyte mean corpuscular hemoglobin concentration measurement ( mass/volume) 35 g/dL 32-36 Automated erythrocyte distribution width ratio 12.5 % 10.0-14.5 Automated blood platelet count (count/volume) 208 10*3/uL 130-400 Automated blood platelet mean volume measurement 9.9 [foz_us] 7.4-10.4 Automated blood neutrophils/100 leukocytes 90 % 42-75 Automated blood lymphocytes/100 leukocytes 4 % 12-44 Blood monocytes/100 leukocytes 6 % 0-12 Automated blood eosinophils/100 leukocytes 1 % 0-10 Automated blood basophils/100 leukocytes 0 % 0-10 Blood neutrophils automated count (number/volume) 13.0 10*3 1.8-7.8 Blood lymphocytes automated count (number/volume) 0.6 10*3 1.0-4.0 Blood monocytes automated count (number/volume) 0.9 10*3 0.0-1.0 Automated eosinophil count 0.1 10*3/uL 0.0-0.3 Automated blood basophil count (count/volume) 0.0 10*3/uL 0.0-0.1 Blood manual differential performed detection - 01/30/17 17:30 Blood monocytes/100 leukocytes 2 % NRG Manual blood segmented neutrophils/100 leukocytes 90 % NRG Blood band neutrophils/100 leukocytes 3 % NRG Manual blood lymphocytes/100 leukocytes 0 % NRG Manual eosinophils/100 leukocytes in nose 0 % NRG Manual blood basophils/100 leukocytes 0 % NRG Blood lymphocytes variant/100 leukocytes 5 % NRG Blood erythrocyte morphology finding identification [facility] Comprehensive metabolic panel - 01/30/17 17:30 Serum or plasma sodium measurement (moles/volume) 142 mmol/L 135-145 Serum or plasma potassium measurement (moles/volume) 4.4 mmol/L 3.6-5.0 Serum or plasma chloride measurement (moles/volume) 103 mmol/L 98-107 Carbon dioxide 25 mmol/L 21-32 Serum or plasma anion gap determination (moles/volume) 14 mmol/L 5-14 Serum or plasma urea nitrogen measurement (mass/volume) 20 mg/dL 7-18 Serum or plasma creatinine measurement (mass/volume) 0.78 mg/dL 0.60-1.30 Serum or plasma urea nitrogen/creatinine mass ratio 26 NRG Serum or plasma creatinine measurement with calculation of estimated glomerular filtration rate > NRG Serum or plasma glucose measurement (mass/volume) 131 mg/dL 70-105 Serum or plasma calcium measurement (mass/volume) 9.5 mg/dL 8.5-10.1 Serum or plasma total bilirubin measurement (mass/volume) 0.5 mg/dL 0.1-1.0 Serum or plasma alkaline phosphatase measurement (enzymatic activity/volume) 87 U/L 40-136 Serum or plasma aspartate aminotransferase measurement (enzymatic activity/ volume) 19 U/L 5-34 Serum or plasma alanine aminotransferase measurement (enzymatic activity/volume ) 49 U/L 0-55 Serum or plasma protein measurement (mass/volume) 7.1 g/dL 6.4-8.2 Serum or plasma albumin measurement (mass/volume) 4.2 g/dL 3.2-4.5 Magnesium - 01/30/17 17:30 Magnesium 1.5 mg/dL 1.8-2.4 Serum or plasma C reactive protein measurement (mass/volume) - 01/30/17 17:30 Serum or plasma C reactive protein measurement (mass/volume) 0.96 mg /dL 0.00-0.50 Complete urinalysis with reflex to culture - 08/03/17 12:25 Urine color determination YELLOW NRG Urine clarity determination CLEAR NRG Urine pH measurement by test strip 6 5-9 Specific gravity of urine by test strip 1.015 1.016- 1.022 Urine protein assay by test strip, semi-quantitative NEGATIVE NEGATIVE Urine glucose detection by automated test strip NEGATIVE NEGATIVE Erythrocytes detection in urine sediment by light microscopy NEGATIVE NEGATIVE Urine ketones detection by automated test strip 2+ NEGATIVE Urine nitrite detection by test strip NEGATIVE NEGATIVE Urine total bilirubin detection by test strip NEGATIVE NEGATIVE Urine urobilinogen measurement by automated test strip (mass/volume) NORMAL NORMAL Urine leukocyte esterase detection by dipstick 1+ NEGATIVE Automated urine sediment erythrocyte count by microscopy (number/high power field) NONE NRG Automated urine sediment leukocyte count by microscopy (number/high power field ) RARE NRG Bacteria detection in urine sediment by light microscopy NEGATIVE NRG Squamous epithelial cells detection in urine sediment by light microscopy 0-2 NRG Crystals detection in urine sediment by light microscopy NONE NRG Casts detection in urine sediment by light microscopy NONE NRG Mucus detection in urine sediment by light microscopy NEGATIVE NRG Complete urinalysis with reflex to culture NO NRG Complete blood count (CBC) with automated white blood cell (WBC) differential - 08/03/17 12:40 Blood leukocytes automated count (number/volume) 9.2 10*3/uL 4.3-11.0 Blood erythrocytes automated count (number/volume) 4.68 10*6/uL 4.35-5.85 Venous blood hemoglobin measurement (mass/volume) 14.7 g/dL 11.5-16.0 Blood hematocrit (volume fraction) 41 % 35-52 Automated erythrocyte mean corpuscular volume 87 [foz_us] 80-99 Automated erythrocyte mean corpuscular hemoglobin (mass per erythrocyte) 31 pg 25-34 Automated erythrocyte mean corpuscular hemoglobin concentration measurement ( mass/volume) 36 g/dL 32-36 Automated erythrocyte distribution width ratio 12.5 % 10.0-14.5 Automated blood platelet count (count/volume) 191 10*3/uL 130-400 Automated blood platelet mean volume measurement 9.3 [foz_us] 7.4-10.4 Automated blood neutrophils/100 leukocytes 89 % 42-75 Automated blood lymphocytes/100 leukocytes 7 % 12-44 Blood monocytes/100 leukocytes 5 % 0-12 Automated blood eosinophils/100 leukocytes 0 % 0-10 Automated blood basophils/100 leukocytes 0 % 0-10 Blood neutrophils automated count (number/volume) 8.1 10*3 1.8-7.8 Blood lymphocytes automated count (number/volume) 0.6 10*3 1.0-4.0 Blood monocytes automated count (number/volume) 0.4 10*3 0.0-1.0 Automated eosinophil count 0.0 10*3/uL 0.0-0.3 Automated blood basophil count (count/volume) 0.0 10*3/uL 0.0-0.1 Blood manual differential performed detection - 08/03/17 12:40 Blood monocytes/100 leukocytes 3 % NR Manual blood segmented neutrophils/100 leukocytes 87 % NRG Blood band neutrophils/100 leukocytes 2 % NRG Manual blood lymphocytes/100 leukocytes 8 % NRG Manual eosinophils/100 leukocytes in nose 0 % NR Manual blood basophils/100 leukocytes 0 % NR Blood erythrocyte morphology finding identification [facility] Comprehensive metabolic panel - 08/03/17 12:40 Serum or plasma sodium measurement (moles/volume) 140 mmol/L 135-145 Serum or plasma potassium measurement (moles/volume) 4.3 mmol/L 3.6-5.0 Serum or plasma chloride measurement (moles/volume) 105 mmol/L 98-107 Carbon dioxide 23 mmol/L 21-32 Serum or plasma anion gap determination (moles/volume) 12 mmol/L 5-14 Serum or plasma urea nitrogen measurement (mass/volume) 14 mg/dL 7-18 Serum or plasma creatinine measurement (mass/volume) 0.71 mg/dL 0.60-1.30 Serum or plasma urea nitrogen/creatinine mass ratio 20 NRG Serum or plasma creatinine measurement with calculation of estimated glomerular filtration rate > NRG Serum or plasma glucose measurement (mass/volume) 101 mg/dL 70-105 Serum or plasma calcium measurement (mass/volume) 9.9 mg/dL 8.5-10.1 Serum or plasma total bilirubin measurement (mass/volume) 0.8 mg/dL 0.1-1.0 Serum or plasma alkaline phosphatase measurement (enzymatic activity/volume) 83 U/L 40-136 Serum or plasma aspartate aminotransferase measurement (enzymatic activity/ volume) 26 U/L 5-34 Serum or plasma alanine aminotransferase measurement (enzymatic activity/volume ) 65 U/L 0-55 Serum or plasma protein measurement (mass/volume) 6.9 g/dL 6.4-8.2 Serum or plasma albumin measurement (mass/volume) 4.3 g/dL 3.2-4.5 Serum or plasma amylase measurement (enzymatic activity/volume) - 08/03/17 12: 40 Serum or plasma amylase measurement (enzymatic activity/volume) 106 U/L 25-125 Lipase - 08/03/17 12:40 Lipase 25 U/L 8-78 Methicillin resistant Staphylococcus aureus (MRSA) screening culture - 18:11 MRSA SCREEN RESULT MRSA ISOLATED NRG Complete blood count (CBC) with automated white blood cell (WBC) differential - 08/04/17 05:25 Blood leukocytes automated count (number/volume) 7.5 10*3/uL 4.3-11.0 Blood erythrocytes automated count (number/volume) 4.21 10*6/uL 4.35-5.85 Venous blood hemoglobin measurement (mass/volume) 12.9 g/dL 11.5-16.0 Blood hematocrit (volume fraction) 37 % 35-52 Automated erythrocyte mean corpuscular volume 88 [foz_us] 80-99 Automated erythrocyte mean corpuscular hemoglobin (mass per erythrocyte) 31 pg 25-34 Automated erythrocyte mean corpuscular hemoglobin concentration measurement ( mass/volume) 35 g/dL 32-36 Automated erythrocyte distribution width ratio 12.5 % 10.0-14.5 Automated blood platelet count (count/volume) 185 10*3/uL 130-400 Automated blood platelet mean volume measurement 9.9 [foz_us] 7.4-10.4 Automated blood neutrophils/100 leukocytes 79 % 42-75 Automated blood lymphocytes/100 leukocytes 13 % 12-44 Blood monocytes/100 leukocytes 8 % 0-12 Automated blood eosinophils/100 leukocytes 0 % 0-10 Automated blood basophils/100 leukocytes 0 % 0-10 Blood neutrophils automated count (number/volume) 5.9 10*3 1.8-7.8 Blood lymphocytes automated count (number/volume) 1.0 10*3 1.0-4.0 Blood monocytes automated count (number/volume) 0.6 10*3 0.0-1.0 Automated eosinophil count 0.0 10*3/uL 0.0-0.3 Automated blood basophil count (count/volume) 0.0 10*3/uL 0.0-0.1 Comprehensive metabolic panel - 08/04/17 05:25 Serum or plasma sodium measurement (moles/volume) 142 mmol/L 135-145 Serum or plasma potassium measurement (moles/volume) 3.6 mmol/L 3.6-5.0 Serum or plasma chloride measurement (moles/volume) 111 mmol/L 98-107 Carbon dioxide 21 mmol/L 21-32 Serum or plasma anion gap determination (moles/volume) 10 mmol/L 5-14 Serum or plasma urea nitrogen measurement (mass/volume) 11 mg/dL 7-18 Serum or plasma creatinine measurement (mass/volume) 0.62 mg/dL 0.60-1.30 Serum or plasma urea nitrogen/creatinine mass ratio 18 NRG Serum or plasma creatinine measurement with calculation of estimated glomerular filtration rate > NRG Serum or plasma glucose measurement (mass/volume) 72 mg/dL 70-105 Serum or plasma calcium measurement (mass/volume) 8.1 mg/dL 8.5-10.1 Serum or plasma total bilirubin measurement (mass/volume) 0.7 mg/dL 0.1-1.0 Serum or plasma alkaline phosphatase measurement (enzymatic activity/volume) 73 U/L 40-136 Serum or plasma aspartate aminotransferase measurement (enzymatic activity/ volume) 19 U/L 5-34 Serum or plasma alanine aminotransferase measurement (enzymatic activity/volume ) 43 U/L 0-55 Serum or plasma protein measurement (mass/volume) 5.6 g/dL 6.4-8.2 Serum or plasma albumin measurement (mass/volume) 3.5 g/dL 3.2-4.5 Urine beta human chorionic gonadotropin (hCG) measurement - 08/04/17 09:00 Urine beta human chorionic gonadotropin (hCG) measurement NEGATIVE NEGATIVE Serum or plasma chromogranin A measurement (mass/volume) - 08/15/17 11:21 Chromogranin a [mass/volume] in serum or plasma 79 % 0- 95 Urine 5-hydroxyindoleacetate measurement (mass/volume) - 08/17/17 08:29 Urine collection time duration 24 % NRG Urine volume measurement 1400 % NRG Confirmatory urine 5-hydroxyindole acetic acid (5-HIAA) measurement (mass/ volume) 2.0 % NRG 24 hour urine serotonin measurement (mass/time) 4 mg/g{Cre} 0-14 Interpretation of urine 5-hydroxyindole acetic acid (HIAA) measurement See Note NRG Creatinine measurement (moles/volume) 54 % NRG Urine 5-hydroxyindoleacetate measurement (mass/volume) 3 % 0-15 Urine 5-hydroxyindoleacetate/creatinine mass ratio 756 % 700-1600 Encounters ACCT No. Visit Date/Time Discharge Status Pt. Type Provider Facility Loc./Unit Complaint [id number] 03/05/2014 08:11:00 03/05/2014 23:59:59 [facility] Outpatient LIBERTAD OROSCO DO [id number] 01/07/2014 10:03:00 01/07/2014 23:59:59 [facility] Outpatient CANDELARIO ARGUETA APRN [id number] 12/05/2013 09:07:00 12/05/2013 23:59:59 [facility] Outpatient CANDELARIO ARGUETA APRN [id number] 10/30/2013 13:49:00 10/30/2013 23:59:59 [facility] Outpatient CANDELARIO ARGUETA APRN [id number] 09/21/2012 10:50:00 09/21/2012 23:59:59 [facility] Outpatient LIBERTAD OROSCO DO [id number] 05/23/2012 10:43:00 Document Registration [id number] 11/09/2016 08:41:00 Document Registration [id number] 08/31/2017 12:20:00 08/31/2017 23:59:59 CLS Outpatient LAWANDA SHAVER APRN [facility] [id number] 11/08/2016 08:40:00 Document Registration [id number] 03/11/2016 08:41:00 Document Registration [id number] 09/28/2017 09:00:00 09/28/2017 23:59:59 CLS PreadNYA Shrestha MD [facility] CARD MALIGNANT CARCINOID TUMOR OF THE CECUM,NICHOLS SYND [id number] 09/27/2017 09:00:00 09/27/2017 23:59:59 CLS NYA Elliott MD [facility] MALIGNANT CARCINOID TUMOR OF THE CECUM,NICHOLS SYND [id number] 09/14/2017 12:00:00 09/14/2017 23:59:59 CLS NYA Elliott MD [facility] CARD [id number] 09/01/2017 12:55:00 09/01/2017 23:59:59 CLS NYA Elliott MD [facility] CARD MALIGNANT CARCINOID TUMOR OF THE CECUM [id number] 09/01/2017 12:50:00 09/01/2017 23:59:59 CLS NYA Elliott MD [facility] CARD MALIGNANT CARCINOID TUMOR OF THE CECUM [id number] 08/30/2017 14:54:00 08/30/2017 23:59:59 CLS Outpatient NYA MENDEZ MD [facility] ONC [id number] 08/15/2017 11:01:00 08/15/2017 23:59:59 CLS Outpatient NORBERT COE DO [facility] LAB CARCINOID TUMOR [id number] 08/03/2017 14:30:00 08/07/2017 13:15:00 DIS Inpatient NORBERT COE DO [facility] 4TH SMALL BOWEL OBSTRUCTION [id number] 01/30/2017 16:56:00 01/30/2017 20:17:00 DIS Emergency DURGA GRANADOS, ROSAMARIA Ortega [facility] ER DIARRHEA,VOMITING, COUGH [id number] 12/09/2016 04:37:00 12/09/2016 07:37:00 DIS Emergency JOHANNA ANNITA [facility] ER LEFT SIDE PAIN,NAUSEA [id number] 10/26/2015 07:07:00 10/26/2015 23:59:59 CLS Outpatient LAWANDA SHAVER [facility] RAD SCREENING [id number] 06/20/2015 08:24:00 06/20/2015 11:01:00 DIS Emergency GALILEO CEBALLOS MD [facility] ER NAUSEA,VOMITING,L SIDE PAIN [id number] 12/26/2014 02:35:00 12/26/2014 05:29:00 DIS Emergency JOHANNA DOANNITA [facility] ER LEFT SIDE HURTS [id number] 10/22/2014 10:14:00 10/22/2014 23:59:59 CLS Outpatient LIBERTAD OROSCO DO [facility] RAD SCREENING [id number] 01/28/2014 09:12:00 01/28/2014 12:30:00 DIS Outpatient OPAL DAVIS MD [facility] SDC ABD PAIN [id number] 01/24/2014 05:50:00 01/24/2014 23:59:59 CLS Outpatient OPAL DAVIS MD [facility] PREOP ABD PAIN [id number] 12/22/2013 11:15:00 12/22/2013 13:14:00 DIS Emergency STACY CERRATO APRN [facility] ER PAIN IN LOWER ABD ON L SIDE [id number] 10/29/2013 09:38:00 10/29/2013 11:54:00 DIS Emergency KIMBERLY WHITEHEAD MD Via [facility] ER LEFT SIDE PAIN/ CRAMPING [id number] 09/19/2013 10:40:00 09/19/2013 12:30:00 DIS Emergency SEVERO LAN DO [facility] ER DIZZINESS [id number] 04/03/2013 16:17:00 04/03/2013 19:12:00 DIS Emergency JOHANNA ANNITA ARANGO [facility] ER N/V/D [id number] 11/05/2012 16:53:00 11/05/2012 20:19:00 DIS Emergency VENTURA GRANADOS, KIMBERLY Jimenez [facility] [id number] 09/22/2017 15:42:00 Document Registration [id number] 02/26/2015 10:36:00 Document Registration
[2017-10-12] MEDS: LACTATED RINGERS 1,000 ML IV SCH (22:51)
[2017-10-12] MEDS: HYDROmorphone 2 MG/ML VIAL (DILAUDID) IV PRN (23:01)
[2017-10-13 00:16] VITALS: BP 136/72
[2017-10-13 04:22] VITALS: BP 115/59
[2017-10-13] MEDS: PIPERACILLIN SODIUM/TAZOBACTAM 4.5 GM in NS (IVPB) 100 ML IV SCH ×3 (05:26→20:32)
[2017-10-13 05:32] LABS: BASOPHILS % (AUTO) 0 % (0-10); EOSINOPHILS % (AUTO) 0 % (0-10); HEMATOCRIT 34 % (35-52); LYMPHOCYTES # (AUTO) 0.8 X 10^3 (1.0-4.0); LYMPHOCYTES % (AUTO) 6 % (12-44); MEAN CORPUSCULAR HEMOGLOBIN 30 PG (25-34); MEAN CORPUSCULAR HGB CONC 35 G/DL (32-36); MEAN CORPUSCULAR VOLUME 86 FL (80-99); MEAN PLATELET VOLUME 9.8 FL (7.4-10.4); MONOCYTES # (AUTO) 0.7 X 10^3 (0.0-1.0); MONOCYTES % (AUTO) 6 % (0-12); NEUTROPHILS # (AUTO) 10.9 X 10^3 (1.8-7.8); NEUTROPHILS % (AUTO) 88 % (42-75); PLATELET COUNT 195 10^3/uL (130-400); RED BLOOD COUNT 3.98 10^6/uL (4.35-5.85); RED CELL DISTRIBUTION WIDTH 13.3 % (10.0-14.5); WHITE BLOOD COUNT 12.5 10^3/uL (4.3-11.0)
[2017-10-13 05:50] LABS: ALANINE AMINOTRANSFERASE 388 U/L (0-55); ALBUMIN 3.5 GM/DL (3.2-4.5); ALKALINE PHOSPHATASE 167 U/L (40-136); BILIRUBIN,TOTAL 0.8 MG/DL (0.1-1.0); BUN/CREATININE RATIO 22; CARBON DIOXIDE 20 MMOL/L (21-32); CHLORIDE 108 MMOL/L (98-107); CREATININE SERUM 0.72 MG/DL (0.60-1.30); GFR ESTIMATED > 60; GLUCOSE 125 MG/DL (70-105); SODIUM 137 MMOL/L (135-145); TOTAL PROTEIN 5.6 GM/DL (6.4-8.2)
[2017-10-13 08:00] VITALS: BP 117/65
--- NOTE | 2017-10-13 09:18 | Consultation (CHS) ---
HPI History of Present Illness: Patient presented to ED last night with complaint of RLQ pain for about six hours and three hours of nausea, as well as starting to get some watery stools. No vomiting. Patient found to have fever of 102.1 and HR of 101; she is s/p resection of ileal carcinoid tumor in July by Dr. Clement. CT scan showed inflammation around anastomosis. Patient has been admitted for sepsis and further evaluation. We have been consulted for medical management. Patient has just completed small bowel follow through, which showed no evidence of obstruction, and no evidence of carcinoid recurrence. Source: family, RN/MD, RN notes reviewed, old records Exam Limitations: clinical condition (patient very sleepy, and not wearing hearing aids) Date seen by provider: Oct 13, 2017 Time Seen by Provider: 14:02 Attending Physician Rogelio Clement DO PCP [facility] Management Date of Admission Oct 12, 2017 at 20:43 Home Medications Home Medications Reviewed patient Home Medication Reconciliation performed by pharmacy medication reconciliations camera technician and/or nursing. Patients Allergies have been reviewed. Allergies Coded Allergies: Sulfa (Sulfonamide Antibiotics) (Verified Allergy, Mild, RASH, 11/05/12) acetaminophen (Verified Adverse Reaction, Mild, N/V, 11/05/12) oxycodone HCl (Verified Adverse Reaction, Mild, N/V, 11/05/12) [id number] Hx Patient Social History Marrital Status: single Employed/Student: employed Alcohol Use: Denies Use Recreational Drug Use: No Smoking Status: Never a Smoker Former smoker/When Quit: May 29, 2005 2nd Hand Smoke Exposure: No Recent Foreign Travel: No Contact w/other who traveled: No Recent Hopitalizations: No Recent Infectious Disease Expo: No Physical Abuse Screen: No Sexual Abuse: No Immunizations Up To Date Date of Influenza Vaccine: Nov 06, 2016 Past Medical History Stage IV Ileal Carcinoid Tumor, s/p resection Major Depression Anxiety Pelletier Syndrome IBS Single Kidney (left) Polycystic Kidney Disease Bilateral Hearing Loss Vitamin D Deficiency Hx Hepatitis A Kidney Stones Arthritis Past Surgical Hx Hiatal Hernia Repair Cholecystectomy Tonsillectomy Appendectomy Right Nephrectomy - 1996 Bilateral Myringotomy Tubes Colonoscopy Ventral Hernia Repair - July [address] Clement Carcinoid Tumor Resection - July [address] Delman Family Medical History Significant Family History: Cancer, Hypertension Family History: Patient reports no known family medical history. Review of Systems (CHC) Constitutional: see HPI EENTM: no symptoms reported Respiratory: no symptoms reported Cardiovascular: no symptoms reported Gastrointestinal: see HPI Genitourinary: no symptoms reported Musculoskeletal: no symptoms reported Skin: no symptoms reported Psychiatric/Neurological: No Symptoms Reported Reviewed Test Results Reviewed Test Results Lab Laboratory Tests Test 10/12/17 19:16 10/12/17 20:05 10/12/17 21:10 10/13/17 05:05 Range/Units White Blood Count 13.0 H 12.5 H 4.3-11.0 10^3/uL Red Blood Count 4.37 3.98 L 4.35-5.85 10^6/uL Hemoglobin 13.2 12.0 11.5-16.0 G/DL Hematocrit 38 34 L 35-52 % Mean Corpuscular Volume 86 86 80-99 FL Mean Corpuscular Hemoglobin 30 30 25-34 PG Mean Corpuscular Hemoglobin Concent 35 35 32-36 G/DL Red Cell Distribution Width 13.1 13.3 10.0-14.5 % Platelet Count 222 195 130-400 10^3/uL Mean Platelet Volume 9.5 9.8 7.4-10.4 FL Neutrophils (%) (Auto) 90 H 88 H 42-75 % Lymphocytes (%) (Auto) 5 L 6 L 12-44 % Monocytes (%) (Auto) 5 6 0-12 % Eosinophils (%) (Auto) 0 0 0-10 % Basophils (%) (Auto) 0 0 0-10 % Neutrophils # (Auto) 11.7 H 10.9 H 1.8-7.8 X 10^3 Lymphocytes # (Auto) 0.7 L 0.8 L 1.0-4.0 X 10^3 Monocytes # (Auto) 0.6 0.7 0.0-1.0 X 10^3 Eosinophils # (Auto) 0.0 0.0 0.0-0.3 10^3/uL Basophils # (Auto) 0.0 0.0 0.0-0.1 10^3/uL Neutrophils % (Manual) 71 % Lymphocytes % (Manual) 5 % Monocytes % (Manual) 5 % Eosinophils % (Manual) 0 % Basophils % (Manual) 2 % Metamyelocytes % 1 % Band Neutrophils 16 % Blood Morphology Comment NORMAL Prothrombin Time 13.2 12.2-14.7 SEC INR Comment 1.0 0.8-1.4 Activated Partial Thromboplast Time 31 24-35 SEC Sodium Level 139 137 135-145 MMOL/L Potassium Level 4.1 4.0 3.6-5.0 MMOL/L Chloride Level 105 108 H 98-107 MMOL/L Carbon Dioxide Level 22 20 L 21-32 MMOL/L Anion Gap 12 9 5-14 MMOL/L Blood Urea Nitrogen 18 16 7-18 MG/DL Creatinine 0.85 0.72 0.60-1.30 MG/DL Estimat Glomerular Filtration Rate > 60 > 60 BUN/Creatinine Ratio 21 22 Glucose Level 150 H 125 H 70-105 MG/DL Lactic Acid Level 2.33 *H 1.57 0.50-2.00 MMOL/L Calcium Level 9.6 9.0 8.5-10.1 MG/DL Corrected Calcium 9.4 9.4 8.5-10.1 MG/DL Total Bilirubin 0.6 0.8 0.1-1.0 MG/DL Aspartate Amino Transf (AST/SGOT) 36 H 407 H 5-34 U/L Alanine Aminotransferase (ALT/SGPT) 84 H 388 H 0-55 U/L Alkaline Phosphatase 156 H 167 H 40-136 U/L Total Protein 6.5 5.6 L 6.4-8.2 GM/DL Albumin 4.2 3.5 3.2-4.5 GM/DL Lipase 35 8-78 U/L Urine Color YELLOW Urine Clarity CLEAR Urine pH 5 5-9 Urine Specific [place] 1.020 1.016-1.022 Urine Protein NEGATIVE NEGATIVE Urine Glucose (UA) NEGATIVE NEGATIVE Urine Ketones NEGATIVE NEGATIVE Urine Nitrite NEGATIVE NEGATIVE Urine Bilirubin NEGATIVE NEGATIVE Urine Urobilinogen NORMAL NORMAL MG/DL Urine Leukocyte Esterase 1+ H NEGATIVE Urine RBC (Auto) NEGATIVE NEGATIVE Urine RBC NONE /HPF Urine WBC 2-5 /HPF Urine Squamous Epithelial Cells 2-5 /HPF Urine Crystals NONE /LPF Urine Bacteria TRACE /HPF Urine Casts NONE /LPF Urine Mucus SMALL H /LPF Urine Culture Indicated NO Radiology Date of Exam: 10/12/17 CHEST 1 VIEW, AP/PA ONLY EXAM: CHEST 1 VIEW, AP/PA ONLY INDICATION: Abdominal pain. FINDINGS: Cardiomegaly with normal central pulmonary vascularity. No focal pulmonary opacity, pleural effusion or pneumothorax. No acute osseous findings. IMPRESSION: Cardiomegaly. Chest otherwise negative. Date of Exam: 10/12/17 CT CHEST/ABDOMEN/PELVIS W PROCEDURE: CT chest, abdomen, and pelvis with contrast. TECHNIQUE: Multiple contiguous axial images were obtained through the chest, abdomen, and pelvis after the administration of intravenous contrast. INDICATION: Right lower quadrant abdominal pain. Stage IV carcinoid. COMPARISON: Octreotide scan 10/03/2017. CT chest with IV contrast 09/12/2017. CT abdomen and pelvis with IV contrast 08/03/2017. FINDINGS: Chest: Examination limited by motion artifact. Mild linear atelectasis or scarring in the lung bases. Lungs are otherwise clear. No pleural effusion. Cardiomegaly. No pericardial effusion. No pneumothorax. No mediastinal, hilar or axillary lymphadenopathy. Normal caliber thoracic aorta and main pulmonary arteries. Abdomen and pelvis: Cholecystectomy. There are postoperative findings in the ileocecal junction. There is bowel wall thickening of the terminal ileum and marked inflammatory changes in the adjacent mesenteric fat. No evidence of small bowel obstruction. Large amount of stool in the proximal colon. The descending and sigmoid colon are relatively decompressed. No organized fluid collections in the abdomen. No free intraperitoneal air. No lymphadenopathy. No acute osseous findings. IMPRESSION: 1. There are postoperative findings in the ileocecal junction. There is bowel wall thickening of the terminal ileum and marked inflammatory change in the adjacent mesenteric fat. No organized fluid collections. No evidence of bowel obstruction. No free intraperitoneal air. 2. No acute CT findings in the chest. Physical Exam-(CHC) Physical Exam Vital Signs VS - Last 72 Hours, by Label 10/12/17 10/12/17 10/12/17 10/13/17 18:55 22:11 22:15 00:16 Temp 102.1 101.1 99.3 Pulse 101 99 96 Resp 18 B/P (MAP) 124/72 (89) 112/65 (89) 136/72 (93) Pulse Ox 99 99 98 99 O2 Delivery Room Air Room Air Room Air Room Air 10/13/17 10/13/17 10/13/17 10/13/17 04:22 08:00 08:00 12:00 Temp 98.7 99.0 100.2 Pulse 84 79 97 Resp 18 B/P (MAP) 115/59 (77) 117/65 (82) 131/75 (93) Pulse Ox 96 99 99 95 O2 Delivery Room Air Room Air Room Air Room Air 10/13/17 10/13/17 10/13/17 15:45 19:30 20:12 Temp 98.0 99.9 99.9 Pulse 88 101 Resp 20 20 B/P (MAP) 121/72 (88) 126/71 (89) Pulse Ox 95 95 O2 Delivery Room Air Room Air Capillary Refill : Less Than 3 Seconds General Appearance: WD/WN, no apparent distress Eyes: Bilateral Eye Normal Inspection, Bilateral Eye EOMI HEENT: No scleral icterus (R), No scleral icterus (L), No photophobia; other Neck: non-tender, full range of motion, supple, other (wide, short) Respiratory: chest non-tender, lungs clear, normal breath sounds, no respiratory distress, no accessory muscle use; No rales, No rhonchi, No wheezing Cardiovascular: normal peripheral pulses, regular rate, rhythm, no edema, no gallop, no murmur, JVD Gastrointestinal: normal bowel sounds, soft, no pulsatile mass; No distended, No guarding, No rebound; tenderness (mild right sided tenderness) Rectal: deferred Extremities: normal inspection, no pedal edema, no calf tenderness, normal capillary refill; No swelling Neurologic/Psychiatric: senior behavioral scientist II-XII nml as tested, no motor/sensory deficits, normal mood/affect, oriented x 3, other (sleepy but arousable) Skin: normal color, warm/dry Assessment/Plan Assessment/Plan Assessment & Plan Fever, Leukocytosis, Tachycardia -pt with above but without clear source of infection -Tmax 102.1 on arrival to ED -inflammation around anastomosis site from surgery in July but without obstruction -Zosyn started in ED, Day 2 -WBC 13 --> 12.5 Elevated Lactate -2.33 --> 1.57 -improved with hydration Metastatic Carcinoid Tumor s/p resection -follows with Dr. Bauman -Stage IV per patient and family -pathology reports from July show metastatic disease with positive lymph nodes -octreotide from oncology this week -pt asked about having tumor markers checked; Dr. Bauman's office contacted and they confirm they do not want markers checked while patient is ill Abdominal Pain -RLQ pain -CT shows post op changes, bowel wall thickening of terminal ileum and marked inflammatory changes in adjacent mesenteric fat -no evidence of obstruction -small bowel follow through today also shows no evidence of obstruction, no evidence of carcinoid recurrence Elevated LFTs -normal total bili, 0.6 --> 0.8 -AST 36 --> 407 -ALT 84 --> 388 -Alk Phos 156 --> 167 -recheck in AM Ok to advance diet slowly, pt advanced from NPO to clear liquids. Toradol 15- 30 mg q6H PRN pain or fever; try to avoid acetaminophen due to acute elevation of LFTs, although given that patient only has single kidney, must also protect her renal function. Continue antibiotics, recheck labs in AM. Clinical Quality Measures DVT/VTE Risk/Contraindication: Risk Factor Score Per Nursin RFS Level Per Nursing on Admit: 3=High Copy Copies To 1: [facility]/JOSEPH JENKINS DO Oct 13, 2017 09:18
[2017-10-13] MEDS: ONDANSETRON 4 MG/2 ML (SDV) Z0FRAN IVP PRN ×2 (09:50→13:23)
[2017-10-13] MEDS ORDERED: DIATRIZOATE MEGLUM/SODIUM 37% 120 ML (GASTROGRAFIN) PO ONE (11:15)
--- NOTE | 2017-10-13 11:42 | Diagnostic Imaging Report ---
INDICATION: Status post partial bowel resection approximately 2 months earlier for small bowel carcinoid tumor. Patient now complains of right lower quadrant pain with recent CT demonstrating moderate inflammation in the right lower quadrant. TECHNIQUE: Patient ingested 120 mL of Gastrografin contrast with 120 mL of water and serial radiographs of the abdomen were obtained. FINDINGS: The project manager interior design radiograph redemonstrates multiple surgical clips in the right abdomen. Bowel gas pattern appears nonobstructive. The stomach has a normal configuration. There is prompt emptying of contrast into the small bowel. Small bowel loops are nondilated. There appears to be normal small bowel transit, without evidence of obstruction. Contrast is seen within the colon at 30 minutes. The mucosal fold pattern is unremarkable. No discrete mass is seen. IMPRESSION: No evidence of small bowel obstruction. Dictated by: Dictated on workstation # [id number]
[2017-10-13 12:00] VITALS: BP 131/75
--- NOTE | 2017-10-13 12:40 | Progress Note ---
Subjective Time Seen by Provider: 11:10 Subjective/Events-last exam Pt seen and examined, she just got back from [facility]. She looks like she does not feel well and states she still has abdominal pain and nausea. She did have 3 BM's during the study. She is hungry. Review of Systems General: No Chills; Malaise HEENT: No Head Aches, No Visual Changes Pulmonary: No Dyspnea Cardiovascular: No: Chest Pain, Palpitations Gastrointestinal: Nausea, Abdominal Pain, Diarrhea; No: Vomiting Genitourinary: No Dysuria, No Frequency Focused Exam Lactate Level 10/12/17 19:16: Lactic Acid Level 2.33*H 10/12/17 21:10: Lactic Acid Level 1.57 Objective Exam Vital Signs Date Time Temp Pulse Resp B/P (MAP) Pulse Ox O2 Delivery O2 Flow Rate FiO2 10/13/17 08:00 99.0 79 18 117/65 (82) 99 Room Air 10/13/17 08:00 99 Room Air 10/13/17 04:22 98.7 84 16 115/59 (77) 96 Room Air 10/13/17 00:16 99.3 96 18 136/72 (93) 99 Room Air 10/12/17 22:15 98 Room Air 10/12/17 22:11 101.1 99 18 112/65 (89) 99 Room Air 10/12/17 18:55 102.1 101 18 124/72 (89) 99 Room Air I & O 10/13/17 07:00 Intake Total 1100 ml Output Total 300 ml Balance 800 ml Capillary Refill : Less Than 3 Seconds General Appearance: WD/WN, Mild Distress HEENT: Pharynx Normal, Moist Mucous Membranes; No Pale Conjunctivae (L), No Pale Conjunctivae (R) Neck: Full Range of Motion, Normal Inspection, Non Tender, Supple Respiratory: Chest Non Tender, Lungs Clear, Normal Breath Sounds, No Accessory Muscle Use, No Respiratory Distress Cardiovascular: Regular Rate, Rhythm, No Edema, Normal Peripheral Pulses Gastrointestinal: normal bowel sounds, guarding (RLQ), tenderness (RLQ) Extremity: Normal Capillary Refill, Normal Inspection, Normal Range of Motion, Non Tender, No Calf Tenderness Neurologic/Psychiatric: Alert, Oriented x3, No Motor/Sensory Deficits, cardiac nurse II- XII Norm as Tested, Other (pt has labile mood) Skin: Normal Color, Warm/Dry Lymphatic: No Adenopathy (neck, axilla or groin) Results Lab Laboratory Tests 10/12/17 19:16: White Blood Count 13.0H, Red Blood Count 4.37, Hemoglobin 13.2, Hematocrit 38, Mean Corpuscular Volume 86, Mean Corpuscular Hemoglobin 30, Mean Corpuscular Hemoglobin Concent 35, Red Cell Distribution Width 13.1, Platelet Count 222, Mean Platelet Volume 9.5, Neutrophils (%) (Auto) 90H, Lymphocytes (%) (Auto) 5L , Monocytes (%) (Auto) 5, Eosinophils (%) (Auto) 0, Basophils (%) (Auto) 0, Neutrophils # (Auto) 11.7H, Lymphocytes # (Auto) 0.7L, Monocytes # (Auto) 0.6, Eosinophils # (Auto) 0.0, Basophils # (Auto) 0.0, Neutrophils % (Manual) 71, Lymphocytes % (Manual) 5, Monocytes % (Manual) 5, Eosinophils % (Manual) 0, Basophils % (Manual) 2, Metamyelocytes % 1, Band Neutrophils 16, Blood Morphology Comment NORMAL, Prothrombin Time 13.2, INR Comment 1.0, Activated Partial Thromboplast Time 31, Sodium Level 139, Potassium Level 4.1, Chloride Level 105, Carbon Dioxide Level 22, Anion Gap 12, Blood Urea Nitrogen 18, Creatinine 0.85, Estimat Glomerular Filtration Rate > 60, BUN/Creatinine Ratio 21, Glucose Level 150H, Lactic Acid Level 2.33*H, Calcium Level 9.6, Corrected Calcium 9.4, Total Bilirubin 0.6, Aspartate Amino Transf (AST/SGOT) 36H, Alanine Aminotransferase (ALT/SGPT) 84H, Alkaline Phosphatase 156H, Total Protein 6.5, Albumin 4.2, Lipase 35 10/12/17 20:05: Urine Color YELLOW, Urine Clarity CLEAR, Urine pH 5, Urine Specific [place] 1.020, Urine Protein NEGATIVE, Urine Glucose (UA) NEGATIVE, Urine Ketones NEGATIVE, Urine Nitrite NEGATIVE, Urine Bilirubin NEGATIVE, Urine Urobilinogen NORMAL, Urine Leukocyte Esterase 1+H, Urine RBC (Auto) NEGATIVE, Urine RBC NONE , Urine WBC 2-5, Urine Squamous Epithelial Cells 2-5, Urine Crystals NONE, Urine Bacteria TRACE, Urine Casts NONE, Urine Mucus SMALLH, Urine Culture Indicated NO 10/12/17 21:10: Lactic Acid Level 1.57 10/13/17 05:05: White Blood Count 12.5H, Red Blood Count 3.98L, Hemoglobin 12.0, Hematocrit 34L , Mean Corpuscular Volume 86, Mean Corpuscular Hemoglobin 30, Mean Corpuscular Hemoglobin Concent 35, Red Cell Distribution Width 13.3, Platelet Count 195, Mean Platelet Volume 9.8, Neutrophils (%) (Auto) 88H, Lymphocytes (%) (Auto) 6L , Monocytes (%) (Auto) 6, Eosinophils (%) (Auto) 0, Basophils (%) (Auto) 0, Neutrophils # (Auto) 10.9H, Lymphocytes # (Auto) 0.8L, Monocytes # (Auto) 0.7, Eosinophils # (Auto) 0.0, Basophils # (Auto) 0.0, Sodium Level 137, Potassium Level 4.0, Chloride Level 108H, Carbon Dioxide Level 20L, Anion Gap 9, Blood Urea Nitrogen 16, Creatinine 0.72, Estimat Glomerular Filtration Rate > 60, BUN/ Creatinine Ratio 22, Glucose Level 125H, Calcium Level 9.0, Corrected Calcium 9.4, Total Bilirubin 0.8, Aspartate Amino Transf (AST/SGOT) 407H, Alanine Aminotransferase (ALT/SGPT) 388H, Alkaline Phosphatase 167H, Total Protein 5.6L , Albumin 3.5 Assessment/Plan Assessment/Plan Assessment/Plan RLQ pain - somewhat better Sepsis - resolved Inflammation around Anastomosis Will start her on clears and advance very slowly; continue IV fluids, IV pain meds, IV ABX and anti-emetics. I went over CT with Radiologist; he did see any masses or lymph nodes that would possibly indicate recurrence of the carcinoid. He did not think there was any perforation. So, unsure why she has the inflammation around anastomosis. Luckily there is no obstruction. Clinical Quality Measures DVT/VTE Risk/Contraindication: Risk Factor Score Per Nursin RFS Level Per Nursing on Admit: 3=High NORBERT COE DO Oct 13, 2017 12:40
[2017-10-13] MEDS: HYDROmorphone 2 MG/ML VIAL (DILAUDID) IV PRN (12:45)
[2017-10-13] MEDS: LACTATED RINGERS 1,000 ML IV SCH ×3 (12:45→18:48)
[2017-10-13 15:45] VITALS: BP 121/72
[2017-10-13] MEDS: KETOROLAC 15 MG/ML VIAL IVP PRN (18:44)
[2017-10-13 19:30] VITALS: BP 126/71
[2017-10-13] MEDS ORDERED: clonazePAM 1 MG (KlonoPIN) TAB PO PRN (22:30)
[2017-10-14] VITALS: BP 128/72
[2017-10-14] MEDS: KETOROLAC 15 MG/ML VIAL IVP PRN ×3 (00:42→20:17)
[2017-10-14] MEDS: LACTATED RINGERS 1,000 ML IV SCH ×3 (03:16→11:35)
[2017-10-14 04:00] VITALS: BP 132/74
[2017-10-14 04:49] LABS: BASOPHILS % (AUTO) 0 % (0-10); EOSINOPHILS % (AUTO) 0 % (0-10); HEMATOCRIT 32 % (35-52); HEMOGLOBIN 10.6 G/DL (11.5-16.0); LYMPHOCYTES # (AUTO) 0.8 X 10^3 (1.0-4.0); LYMPHOCYTES % (AUTO) 9 % (12-44); MEAN CORPUSCULAR HEMOGLOBIN 30 PG (25-34); MEAN CORPUSCULAR HGB CONC 34 G/DL (32-36); MEAN CORPUSCULAR VOLUME 88 FL (80-99); MEAN PLATELET VOLUME 9.9 FL (7.4-10.4); MONOCYTES # (AUTO) 0.6 X 10^3 (0.0-1.0); MONOCYTES % (AUTO) 7 % (0-12); NEUTROPHILS # (AUTO) 7.6 X 10^3 (1.8-7.8); NEUTROPHILS % (AUTO) 85 % (42-75); PLATELET COUNT 171 10^3/uL (130-400); RED BLOOD COUNT 3.58 10^6/uL (4.35-5.85); RED CELL DISTRIBUTION WIDTH 13.3 % (10.0-14.5); WHITE BLOOD COUNT 8.9 10^3/uL (4.3-11.0)
[2017-10-14] MEDS: PIPERACILLIN SODIUM/TAZOBACTAM 4.5 GM in NS (IVPB) 100 ML IV SCH (05:02)
[2017-10-14 05:10] LABS: ALANINE AMINOTRANSFERASE 513 U/L (0-55); ALBUMIN 3.1 GM/DL (3.2-4.5); ALKALINE PHOSPHATASE 187 U/L (40-136); BILIRUBIN,TOTAL 0.9 MG/DL (0.1-1.0); BUN/CREATININE RATIO 13; CARBON DIOXIDE 24 MMOL/L (21-32); CHLORIDE 109 MMOL/L (98-107); CREATININE SERUM 0.75 MG/DL (0.60-1.30); GFR ESTIMATED > 60; GLUCOSE 89 MG/DL (70-105); MAGNESIUM 1.8 MG/DL (1.8-2.4); POTASSIUM 3.6 MMOL/L (3.6-5.0); SODIUM 141 MMOL/L (135-145); TOTAL PROTEIN 5.3 GM/DL (6.4-8.2)
[2017-10-14 07:34] VITALS: BP 126/75
[2017-10-14 11:30] VITALS: BP 125/74
--- NOTE | 2017-10-14 11:43 | Progress Note (SOAP) ---
Subjective Date Seen by Provider: Oct 14, 2017 Time Seen by Provider: 10:20 Subjective/Events-last exam poor appetite. Low-grade fever. Liver function elevated with normal bilirubin. Having liquid stools with very minimal passage of stools Review of Systems General: Fatigue HEENT: No Head Aches, No Eye Pain, No Ear Pain, No Dysphasia, No Sinus Congestion, No Post Nasal Drip, No Sore Throat Pulmonary: No Dyspnea, No Cough, No Pleuritic Chest Pain Cardiovascular: No: Chest Pain, Palpitations, Orthopnea, Paroxysmal Noc. Dyspnea, Edema, Lt Headedness Gastrointestinal: Diarrhea Genitourinary: No Dysuria, No Frequency, No Incontinence, No Hematuria, No Retention Musculoskeletal: No: other, neck pain, shoulder pain, arm pain, back pain, hand pain, leg pain, foot pain Neurological: Weakness Focused Exam Lactate Level 10/12/17 19:16: Lactic Acid Level 2.33*H 10/12/17 21:10: Lactic Acid Level 1.57 Objective Exam Vital Signs Date Time Temp Pulse Resp B/P (MAP) Pulse Ox O2 Delivery O2 Flow Rate FiO2 10/14/17 11:30 100.3 97 20 125/74 (91) 98 Room Air 10/14/17 08:00 99 Room Air 10/14/17 07:34 100.1 100 20 126/75 (92) 98 Room Air 10/14/17 04:00 99.8 97 20 132/74 (93) 97 Room Air 10/14/17 02:16 100.2 10/14/17 01:58 100.3 10/14/17 00:42 101.2 10/14/17 00:00 101.3 101 20 128/72 (90) 96 Room Air 10/13/17 20:00 Room Air 10/13/17 19:30 99.9 101 20 126/71 (89) 95 Room Air 10/13/17 15:45 98.0 88 20 121/72 (88) 95 Room Air 10/13/17 12:00 100.2 97 18 131/75 (93) 95 Room Air I & O 10/14/17 07:00 Intake Total 2860 ml Output Total 1500 ml Balance 1360 ml Capillary Refill : Less Than 3 Seconds General Appearance: No Apparent Distress Respiratory: Lungs Clear Cardiovascular: Regular Rate, Rhythm Gastrointestinal: soft Neurologic/Psychiatric: Alert, Oriented x3 Skin: Warm/Dry Results Lab Laboratory Tests 10/14/17 04:31: White Blood Count 8.9, Red Blood Count 3.58L, Hemoglobin 10.6L, Hematocrit 32L, Mean Corpuscular Volume 88, Mean Corpuscular Hemoglobin 30, Mean Corpuscular Hemoglobin Concent 34, Red Cell Distribution Width 13.3, Platelet Count 171, Mean Platelet Volume 9.9, Neutrophils (%) (Auto) 85H, Lymphocytes (%) (Auto) 9L , Monocytes (%) (Auto) 7, Eosinophils (%) (Auto) 0, Basophils (%) (Auto) 0, Neutrophils # (Auto) 7.6, Lymphocytes # (Auto) 0.8L, Monocytes # (Auto) 0.6, Eosinophils # (Auto) 0.0, Basophils # (Auto) 0.0, Sodium Level 141, Potassium Level 3.6, Chloride Level 109H, Carbon Dioxide Level 24, Anion Gap 8, Blood Urea Nitrogen 10, Creatinine 0.75, Estimat Glomerular Filtration Rate > 60, BUN/ Creatinine Ratio 13, Glucose Level 89, Calcium Level 9.0, Corrected Calcium 9.7 , Magnesium Level 1.8, Total Bilirubin 0.9, Aspartate Amino Transf (AST/SGOT) 176H, Alanine Aminotransferase (ALT/SGPT) 513#H, Alkaline Phosphatase 187H, Total Protein 5.3L, Albumin 3.1L Microbiology 10/12/17 Blood Culture - Preliminary, Resulted No growth 10/12/17 Urine Culture - Final, Complete Strep anginosus Assessment/Plan Assessment/Plan Assess & Plan/Chief Complaint lady with resected carcinoid tumor, resolved ileus versus partial small bowel obstruction. Fever of unknown origin. On empiric antibiotics. Elevated liver enzymes, we'll continue to follow Final Diagnosis resolved partial small bowel obstruction Clinical Quality Measures DVT/VTE Risk/Contraindication: Risk Factor Score Per Nursin RFS Level Per Nursing on Admit: 3=High GERRI ROSA MD Oct 14, 2017 11:43
[2017-10-14] MEDS: metroNIDAZOLE 500 MG (FLAGYL) TAB PO SCH ×2 (13:55→20:17)
--- NOTE | 2017-10-14 14:31 | Progress Note (SOAP) ---
Subjective Subjective/Events-last exam Febrile. LFTs increasing. She denies abdominal pain. Continues to have loose stools. Review of Systems Date Seen by Provider: Oct 14, 2017 Time Seen by Provider: 11:59 Focused Exam Lactate Level 10/12/17 19:16: Lactic Acid Level 2.33*H 10/12/17 21:10: Lactic Acid Level 1.57 Objective Exam Last Set of Vital Signs Vital Signs Date Time Temp Pulse Resp B/P (MAP) Pulse Ox O2 Delivery O2 Flow Rate FiO2 10/14/17 11:30 100.3 97 20 125/74 (91) 98 Room Air Capillary Refill : Less Than 3 Seconds I&O Intake and Output 10/14/17 00:00 Intake Total 2560 ml Output Total 1400 ml Balance 1160 ml Intake Oral 560 ml IV Total 2000 ml Output Urine Total 1000 ml Emesis 400 ml # Bowel Movements 8 General: Alert, No Acute Distress Lungs: Clear to Auscultation, Normal Air Movement Heart: Regular Rate, No Murmurs Abdomen: Normal Bowel Sounds, Soft, No Tenderness Psych/Mental Status: Mental Status NL Results/Procedures Lab Laboratory Tests 10/14/17 04:31: White Blood Count 8.9, Red Blood Count 3.58L, Hemoglobin 10.6L, Hematocrit 32L, Mean Corpuscular Volume 88, Mean Corpuscular Hemoglobin 30, Mean Corpuscular Hemoglobin Concent 34, Red Cell Distribution Width 13.3, Platelet Count 171, Mean Platelet Volume 9.9, Neutrophils (%) (Auto) 85H, Lymphocytes (%) (Auto) 9L , Monocytes (%) (Auto) 7, Eosinophils (%) (Auto) 0, Basophils (%) (Auto) 0, Neutrophils # (Auto) 7.6, Lymphocytes # (Auto) 0.8L, Monocytes # (Auto) 0.6, Eosinophils # (Auto) 0.0, Basophils # (Auto) 0.0, Sodium Level 141, Potassium Level 3.6, Chloride Level 109H, Carbon Dioxide Level 24, Anion Gap 8, Blood Urea Nitrogen 10, Creatinine 0.75, Estimat Glomerular Filtration Rate > 60, BUN/ Creatinine Ratio 13, Glucose Level 89, Calcium Level 9.0, Corrected Calcium 9.7 , Magnesium Level 1.8, Total Bilirubin 0.9, Aspartate Amino Transf (AST/SGOT) 176H, Alanine Aminotransferase (ALT/SGPT) 513#H, Alkaline Phosphatase 187H, Total Protein 5.3L, Albumin 3.1L Microbiology 10/12/17 Blood Culture - Preliminary, Resulted No growth 10/12/17 Urine Culture - Final, Complete Strep anginosus Radiology Date of Exam: 10/12/17 CHEST 1 VIEW, AP/PA ONLY EXAM: CHEST 1 VIEW, AP/PA ONLY INDICATION: Abdominal pain. FINDINGS: Cardiomegaly with normal central pulmonary vascularity. No focal pulmonary opacity, pleural effusion or pneumothorax. No acute osseous findings. IMPRESSION: Cardiomegaly. Chest otherwise negative. Date of Exam: 10/12/17 CT CHEST/ABDOMEN/PELVIS W PROCEDURE: CT chest, abdomen, and pelvis with contrast. TECHNIQUE: Multiple contiguous axial images were obtained through the chest, abdomen, and pelvis after the administration of intravenous contrast. INDICATION: Right lower quadrant abdominal pain. Stage IV carcinoid. COMPARISON: Octreotide scan 10/03/2017. CT chest with IV contrast 09/12/2017. CT abdomen and pelvis with IV contrast 08/03/2017. FINDINGS: Chest: Examination limited by motion artifact. Mild linear atelectasis or scarring in the lung bases. Lungs are otherwise clear. No pleural effusion. Cardiomegaly. No pericardial effusion. No pneumothorax. No mediastinal, hilar or axillary lymphadenopathy. Normal caliber thoracic aorta and main pulmonary arteries. Abdomen and pelvis: Cholecystectomy. There are postoperative findings in the ileocecal junction. There is bowel wall thickening of the terminal ileum and marked inflammatory changes in the adjacent mesenteric fat. No evidence of small bowel obstruction. Large amount of stool in the proximal colon. The descending and sigmoid colon are relatively decompressed. No organized fluid collections in the abdomen. No free intraperitoneal air. No lymphadenopathy. No acute osseous findings. IMPRESSION: 1. There are postoperative findings in the ileocecal junction. There is bowel wall thickening of the terminal ileum and marked inflammatory change in the adjacent mesenteric fat. No organized fluid collections. No evidence of bowel obstruction. No free intraperitoneal air. 2. No acute CT findings in the chest. Assessment/Plan Assessment/Plan Assessment & Plan Fever, Leukocytosis, Tachycardia -without clear source of infection -Tmax 102.1 on arrival to ED -inflammation around anastomosis site from surgery in July but without obstruction -Zosyn started in ED 10/14- remains febrile last 24 hours, changing antibiotics due to increasing LFTs Elevated Lactate -2.33 --> 1.57 -improved with hydration Metastatic Carcinoid Tumor s/p resection -follows with Dr. Bauman -Stage IV per patient and family -pathology reports from July show metastatic disease with positive lymph nodes -octreotide from oncology this week -pt asked about having tumor markers checked; Dr. Bauman's office contacted and they confirm they do not want markers checked while patient is ill Abdominal Pain -RLQ pain -CT shows post op changes, bowel wall thickening of terminal ileum and marked inflammatory changes in adjacent mesenteric fat -no evidence of obstruction -small bowel follow through also shows no evidence of obstruction, no evidence of carcinoid recurrence Elevated LFTs -normal total bili 10/14 worsening, will stop zosyn and change to cipro/flagyl. If persistent elevation, consider Hep testing and liver US Clinical Quality Measures DVT/VTE Risk/Contraindication: Risk Factor Score Per Nursin RFS Level Per Nursing on Admit: 3=High VELIA DUBOSE MD Oct 14, 2017 2:31 pm
[2017-10-14 16:04] VITALS: BP 120/70
[2017-10-14 19:40] VITALS: BP 128/75
[2017-10-14] MEDS: CIPROFLOXACIN 500 MG (CIPRO) TABLET PO SCH (20:17)
[2017-10-15] VITALS: BP 126/83
[2017-10-15] MEDS: LACTATED RINGERS 1,000 ML IV SCH (00:56)
[2017-10-15 04:00] VITALS: BP 137/82
[2017-10-15 07:22] LABS: BASOPHILS % (AUTO) 0 % (0-10); EOSINOPHILS % (AUTO) 0 % (0-10); HEMATOCRIT 31 % (35-52); HEMOGLOBIN 10.1 G/DL (11.5-16.0); LYMPHOCYTES # (AUTO) 0.7 X 10^3 (1.0-4.0); LYMPHOCYTES % (AUTO) 9 % (12-44); MEAN CORPUSCULAR HEMOGLOBIN 29 PG (25-34); MEAN CORPUSCULAR HGB CONC 33 G/DL (32-36); MEAN CORPUSCULAR VOLUME 88 FL (80-99); MEAN PLATELET VOLUME 9.9 FL (7.4-10.4); MONOCYTES # (AUTO) 0.5 X 10^3 (0.0-1.0); MONOCYTES % (AUTO) 7 % (0-12); NEUTROPHILS # (AUTO) 6.2 X 10^3 (1.8-7.8); NEUTROPHILS % (AUTO) 84 % (42-75); PLATELET COUNT 188 10^3/uL (130-400); RED BLOOD COUNT 3.46 10^6/uL (4.35-5.85); RED CELL DISTRIBUTION WIDTH 13.2 % (10.0-14.5); WHITE BLOOD COUNT 7.4 10^3/uL (4.3-11.0)
[2017-10-15 07:45] LABS: ALANINE AMINOTRANSFERASE 291 U/L (0-55); ALBUMIN 3.2 GM/DL (3.2-4.5); ALKALINE PHOSPHATASE 177 U/L (40-136); BILIRUBIN,TOTAL 0.6 MG/DL (0.1-1.0); BUN/CREATININE RATIO 13; CALCIUM 8.6 MG/DL (8.5-10.1); CARBON DIOXIDE 24 MMOL/L (21-32); CHLORIDE 109 MMOL/L (98-107); CREATININE SERUM 0.68 MG/DL (0.60-1.30); GFR ESTIMATED > 60; GLUCOSE 90 MG/DL (70-105); MAGNESIUM 1.9 MG/DL (1.8-2.4); POTASSIUM 3.6 MMOL/L (3.6-5.0); SODIUM 142 MMOL/L (135-145); TOTAL PROTEIN 5.4 GM/DL (6.4-8.2)
[2017-10-15 08:00] VITALS: BP 157/82
[2017-10-15] MEDS: CIPROFLOXACIN 500 MG (CIPRO) TABLET PO SCH ×2 (08:36→20:45)
[2017-10-15] MEDS: metroNIDAZOLE 500 MG (FLAGYL) TAB PO SCH ×3 (08:36→20:45)
--- NOTE | 2017-10-15 11:17 | Progress Note-Standard ---
Standard Progress Note Progress Notes/Assess & Plan Date Seen by Provider: Oct 15, 2017 Time Seen by Provider: 09:50 Progress/Assessment & Plan diarrhea much improved. LFTs are better. Fever unsettled, last temperature being 100.8. Abdomen soft. Final Diagnosis carcinoid tumor. Fever of unknown origin. Focused Exam Lactate Level 10/12/17 19:16: Lactic Acid Level 2.33*H 10/12/17 21:10: Lactic Acid Level 1.57 GERRI ROSA MD Oct 15, 2017 11:17
[2017-10-15 12:00] VITALS: BP 165/71
--- NOTE | 2017-10-15 16:19 | Progress Note (SOAP) ---
Subjective Subjective/Events-last exam Febrile to 102 in last 24 hours. Denies any other concerns. Review of Systems Date Seen by Provider: Oct 15, 2017 Time Seen by Provider: 13:12 Focused Exam Lactate Level 10/12/17 19:16: Lactic Acid Level 2.33*H 10/12/17 21:10: Lactic Acid Level 1.57 Objective Exam Last Set of Vital Signs Vital Signs Date Time Temp Pulse Resp B/P (MAP) Pulse Ox O2 Delivery O2 Flow Rate FiO2 10/15/17 12:00 99.9 93 16 165/71 (102) 96 Room Air Capillary Refill : Less Than 3 Seconds I&O Intake and Output 10/15/17 00:00 Intake Total 2370 ml Output Total 1800 ml Balance 570 ml Intake Oral 1270 ml IV Total 1100 ml Output Urine Total 1800 ml # Bowel Movements 3 General: Alert, No Acute Distress Lungs: Clear to Auscultation, Normal Air Movement Heart: Regular Rate, No Murmurs Abdomen: Normal Bowel Sounds, Soft, No Tenderness Neuro: Normal Speech Psych/Mental Status: Mental Status NL Results/Procedures Lab Laboratory Tests 10/15/17 06:55: White Blood Count 7.4, Red Blood Count 3.46L, Hemoglobin 10.1L, Hematocrit 31L, Mean Corpuscular Volume 88, Mean Corpuscular Hemoglobin 29, Mean Corpuscular Hemoglobin Concent 33, Red Cell Distribution Width 13.2, Platelet Count 188, Mean Platelet Volume 9.9, Neutrophils (%) (Auto) 84H, Lymphocytes (%) (Auto) 9L , Monocytes (%) (Auto) 7, Eosinophils (%) (Auto) 0, Basophils (%) (Auto) 0, Neutrophils # (Auto) 6.2, Lymphocytes # (Auto) 0.7L, Monocytes # (Auto) 0.5, Eosinophils # (Auto) 0.0, Basophils # (Auto) 0.0, Sodium Level 142, Potassium Level 3.6, Chloride Level 109H, Carbon Dioxide Level 24, Anion Gap 9, Blood Urea Nitrogen 9, Creatinine 0.68, Estimat Glomerular Filtration Rate > 60, BUN/ Creatinine Ratio 13, Glucose Level 90, Calcium Level 8.6, Corrected Calcium 9.2 , Magnesium Level 1.9, Total Bilirubin 0.6, Aspartate Amino Transf (AST/SGOT) 38H, Alanine Aminotransferase (ALT/SGPT) 291H, Alkaline Phosphatase 177H, Total Protein 5.4L, Albumin 3.2 Microbiology 10/12/17 Blood Culture - Preliminary, Resulted No growth 10/12/17 Urine Culture - Final, Complete Strep anginosus Radiology Date of Exam: 10/12/17 CHEST 1 VIEW, AP/PA ONLY EXAM: CHEST 1 VIEW, AP/PA ONLY INDICATION: Abdominal pain. FINDINGS: Cardiomegaly with normal central pulmonary vascularity. No focal pulmonary opacity, pleural effusion or pneumothorax. No acute osseous findings. IMPRESSION: Cardiomegaly. Chest otherwise negative. Date of Exam: 10/12/17 CT CHEST/ABDOMEN/PELVIS W PROCEDURE: CT chest, abdomen, and pelvis with contrast. TECHNIQUE: Multiple contiguous axial images were obtained through the chest, abdomen, and pelvis after the administration of intravenous contrast. INDICATION: Right lower quadrant abdominal pain. Stage IV carcinoid. COMPARISON: Octreotide scan 10/03/2017. CT chest with IV contrast 09/12/2017. CT abdomen and pelvis with IV contrast 08/03/2017. FINDINGS: Chest: Examination limited by motion artifact. Mild linear atelectasis or scarring in the lung bases. Lungs are otherwise clear. No pleural effusion. Cardiomegaly. No pericardial effusion. No pneumothorax. No mediastinal, hilar or axillary lymphadenopathy. Normal caliber thoracic aorta and main pulmonary arteries. Abdomen and pelvis: Cholecystectomy. There are postoperative findings in the ileocecal junction. There is bowel wall thickening of the terminal ileum and marked inflammatory changes in the adjacent mesenteric fat. No evidence of small bowel obstruction. Large amount of stool in the proximal colon. The descending and sigmoid colon are relatively decompressed. No organized fluid collections in the abdomen. No free intraperitoneal air. No lymphadenopathy. No acute osseous findings. IMPRESSION: 1. There are postoperative findings in the ileocecal junction. There is bowel wall thickening of the terminal ileum and marked inflammatory change in the adjacent mesenteric fat. No organized fluid collections. No evidence of bowel obstruction. No free intraperitoneal air. 2. No acute CT findings in the chest. Assessment/Plan Assessment/Plan Assessment & Plan Fever, Leukocytosis, Tachycardia -without clear source of infection -Tmax 102.1 on arrival to ED -inflammation around anastomosis site from surgery in July but without obstruction -Zosyn started in ED 10/14- remains febrile last 24 hours, changing antibiotics due to increasing LFTs 10/15- febrile to 102 last 24 hours, unclear etiology, check C diff. Elevated Lactate -2.33 --> 1.57 -improved with hydration Metastatic Carcinoid Tumor s/p resection -follows with Dr. Bauman -Stage IV per patient and family -pathology reports from July show metastatic disease with positive lymph nodes -octreotide from oncology this week -pt asked about having tumor markers checked; Dr. Bauman's office contacted and they confirm they do not want markers checked while patient is ill 10/15- discussed with Oncology, carcinoid should not cause fever, they will see her in the am Abdominal Pain -RLQ pain -CT shows post op changes, bowel wall thickening of terminal ileum and marked inflammatory changes in adjacent mesenteric fat -no evidence of obstruction -small bowel follow through also shows no evidence of obstruction, no evidence of carcinoid recurrence Elevated LFTs -normal total bili 10/14 worsening, will stop zosyn and change to cipro/flagyl. If persistent elevation, consider Hep testing and liver US 10/15 significant improvement today after d/c of zosyn, monitor Clinical Quality Measures DVT/VTE Risk/Contraindication: Risk Factor Score Per Nursin RFS Level Per Nursing on Admit: 3=High VELIA DUBOSE MD Oct 15, 2017 4:19 pm
[2017-10-15 16:50] VITALS: BP 135/81
[2017-10-15] MEDS: KETOROLAC 15 MG/ML VIAL IVP PRN (16:59)
[2017-10-15 19:25] VITALS: BP 138/82
[2017-10-16 00:02] VITALS: BP 140/82
[2017-10-16 04:01] VITALS: BP 144/80
[2017-10-16 06:12] LABS: BASOPHILS % (AUTO) 0 % (0-10); EOSINOPHILS # (AUTO) 0.1 10^3/uL (0.0-0.3); EOSINOPHILS % (AUTO) 1 % (0-10); HEMATOCRIT 32 % (35-52); HEMOGLOBIN 10.7 G/DL (11.5-16.0); LYMPHOCYTES # (AUTO) 0.8 X 10^3 (1.0-4.0); LYMPHOCYTES % (AUTO) 12 % (12-44); MEAN CORPUSCULAR HEMOGLOBIN 30 PG (25-34); MEAN CORPUSCULAR HGB CONC 34 G/DL (32-36); MEAN CORPUSCULAR VOLUME 88 FL (80-99); MEAN PLATELET VOLUME 9.8 FL (7.4-10.4); MONOCYTES # (AUTO) 0.4 X 10^3 (0.0-1.0); MONOCYTES % (AUTO) 7 % (0-12); NEUTROPHILS # (AUTO) 5.1 X 10^3 (1.8-7.8); NEUTROPHILS % (AUTO) 80 % (42-75); PLATELET COUNT 228 10^3/uL (130-400); RED BLOOD COUNT 3.61 10^6/uL (4.35-5.85); RED CELL DISTRIBUTION WIDTH 13.3 % (10.0-14.5); WHITE BLOOD COUNT 6.4 10^3/uL (4.3-11.0)
[2017-10-16 06:39] LABS: ALANINE AMINOTRANSFERASE 213 U/L (0-55); ALBUMIN 3.4 GM/DL (3.2-4.5); ALKALINE PHOSPHATASE 181 U/L (40-136); BILIRUBIN,TOTAL 0.4 MG/DL (0.1-1.0); BUN/CREATININE RATIO 17; CALCIUM 8.8 MG/DL (8.5-10.1); CARBON DIOXIDE 23 MMOL/L (21-32); CHLORIDE 111 MMOL/L (98-107); CREATININE SERUM 0.71 MG/DL (0.60-1.30); GFR ESTIMATED > 60; GLUCOSE 94 MG/DL (70-105); MAGNESIUM 1.9 MG/DL (1.8-2.4); POTASSIUM 3.5 MMOL/L (3.6-5.0); SODIUM 142 MMOL/L (135-145)
[2017-10-16 08:00] VITALS: BP 152/77
[2017-10-16] MEDS: CIPROFLOXACIN 500 MG (CIPRO) TABLET PO SCH (09:09)
[2017-10-16] MEDS: metroNIDAZOLE 500 MG (FLAGYL) TAB PO SCH (09:09)
--- NOTE | 2017-10-16 10:56 | Progress Note ---
Subjective Date Seen by Provider: Oct 16, 2017 Time Seen by Provider: 10:39 Subjective/Events-last exam Pt was ambulating when I entered room. She denies pain, nausea, vomiting, diarrhea. She is tolerating oral intake. She looks much better than when she was admitted on night. Her only worry is her low grade fever, which I assured her is not a cause for concern. She stated she has not had a colonscopy since her carcinoid tumor removal 2.5 months ago. Review of Systems General: No Chills, No Night Sweats, No Fatigue, No Malaise HEENT: No Head Aches, No Dysphasia Pulmonary: No Dyspnea, No Cough Cardiovascular: No: Chest Pain, Palpitations Gastrointestinal: No: Nausea, Vomiting, Abdominal Pain, Diarrhea Genitourinary: No Dysuria, No Hematuria Musculoskeletal: No: neck pain, back pain Neurological: No: Weakness, Numbness, Confusion Focused Exam Respiratory: Chest Non Tender, Lungs Clear, Normal Breath Sounds, No Accessory Muscle Use, No Respiratory Distress Cardiovascular: Regular Rate, Rhythm, No Edema, No Gallop, No Murmur Capillary Refill: Less Than 3 Seconds Skin: normal color, warm/dry; No diaphoresis Objective Exam Vital Signs Date Time Temp Pulse Resp B/P (MAP) Pulse Ox O2 Delivery O2 Flow Rate FiO2 10/16/17 08:00 Room Air 10/16/17 08:00 100.2 92 20 152/77 (102) 97 Room Air 10/16/17 04:01 97.8 80 18 144/80 (101) 97 Room Air 10/16/17 00:02 97.4 84 17 140/82 (101) 99 Room Air 10/15/17 20:00 Room Air 10/15/17 19:25 99.7 88 16 138/82 (100) 98 Room Air 10/15/17 16:50 100.8 87 24 135/81 (99) 96 Room Air 10/15/17 12:00 99.9 93 16 165/71 (102) 96 Room Air I & O 10/16/17 06:59 Intake Total 2690 ml Output Total 2500 ml Balance 190 ml Capillary Refill : Less Than 3 SecondsLess Than 3 Seconds General Appearance: No Apparent Distress HEENT: Pharynx Normal, Moist Mucous Membranes; No Pale Conjunctivae (L), No Pale Conjunctivae (R) Neck: Full Range of Motion, Normal Inspection, Non Tender, Supple Respiratory: Lungs Clear Cardiovascular: Regular Rate, Rhythm Gastrointestinal: soft Extremity: Normal Capillary Refill, Normal Inspection, Normal Range of Motion, Non Tender, No Calf Tenderness Neurologic/Psychiatric: Alert, Oriented x3 Skin: Warm/Dry Lymphatic: No Adenopathy (neck, axilla or groin) Results Lab Laboratory Tests 10/16/17 05:41: White Blood Count 6.4, Red Blood Count 3.61L, Hemoglobin 10.7L, Hematocrit 32L, Mean Corpuscular Volume 88, Mean Corpuscular Hemoglobin 30, Mean Corpuscular Hemoglobin Concent 34, Red Cell Distribution Width 13.3, Platelet Count 228, Mean Platelet Volume 9.8, Neutrophils (%) (Auto) 80H, Lymphocytes (%) (Auto) 12 , Monocytes (%) (Auto) 7, Eosinophils (%) (Auto) 1, Basophils (%) (Auto) 0, Neutrophils # (Auto) 5.1, Lymphocytes # (Auto) 0.8L, Monocytes # (Auto) 0.4, Eosinophils # (Auto) 0.1, Basophils # (Auto) 0.0, Sodium Level 142, Potassium Level 3.5L, Chloride Level 111H, Carbon Dioxide Level 23, Anion Gap 8, Blood Urea Nitrogen 12, Creatinine 0.71, Estimat Glomerular Filtration Rate > 60, BUN/ Creatinine Ratio 17, Glucose Level 94, Calcium Level 8.8, Corrected Calcium 9.3 , Magnesium Level 1.9, Total Bilirubin 0.4, Aspartate Amino Transf (AST/SGOT) 22 , Alanine Aminotransferase (ALT/SGPT) 213H, Alkaline Phosphatase 181H, Total Protein 6.0L, Albumin 3.4 Microbiology 10/12/17 Blood Culture - Preliminary, Resulted No growth 10/15/17 C. difficile GDH Antigen & Toxins - Final, Complete 10/12/17 Urine Culture - Final, Complete Strep anginosus Assessment/Plan Assessment/Plan Assessment/Plan Fever has trended down to 99 F and white count no longer elevated. Pt denies abdominal pain. She can continue on oral Flagyll and Cipro and be D/C home. Pt is scheduled to follow up w/ Dr. Clement in clinic this week. A plan for potential colonoscopy will be discussed at that time. I was with Luigi when we examined this pt and talked to her; I agree with everything in this note. Clinical Quality Measures DVT/VTE Risk/Contraindication: Risk Factor Score Per Nursin RFS Level Per Nursing on Admit: 3=High LUIGI GARCIA MEDICAL STUDENT Oct 16, 2017 10:56 NORBERT CLEMENT DO Oct 16, 2017 11:14
[2017-10-16] MEDS ORDERED: CIPR500T4 PO (11:08)
[2017-10-16] MEDS ORDERED: METR500T21 PO (11:08)
--- NOTE | 2017-10-16 11:09 | Discharge Inst-Surgical ---
Discharge Inst-Surgical Depart Medication/Instructions New, Converted or Re-Newed RX: Transmitted to Pharmacy Patient Instructions Follow up Appt: Make appointment for 1 week. Instructions: No lifting greater than 10 pounds. No strenuous activity. May shower in 24 hours, no tub bath or soaking. Use incentive spirometer at home as directed. No Smoking Symptoms to Report: Appetite Changes, Extremity Discoloration, Numbness/Tingling, Swelling Increased , Bleeding Excessive, Eyesight Changes, Pain Increased, Urine Color Change, Constipation(Persistent), Fever over 101 degree F, Pain/Pressure in chest, Urinating Difficulty, Cough Up/Vomit Blood, Heart Beat Irreg/Pounding, Pain/ Pressure in jaw, Vaginal Bleeding Increase, Cramps in feet or legs, Lightheadedness, Pain/Pressure in shoulder, Diarrhea(Persistent), Memory Changes Suddenly, Questions/Concerns, Weight gain consecutive days, Dizziness/ Fainting, Nausea/Vomiting, Shortness of Breath, Weight gain over 2 pounds If questions or concerns contact your physician Or seek help at emergency department. Activity Activity as Tolerated: Yes Ok to go back to work tomorrow if she wants. Driving Instructions: You May Drive Diet Discharge Diet: No Restrictions If Any Problems/Questions/Issu: Contact Your Physician, Go to Emergency Room Skin/Wound Care Infection Signs and Symptoms: Increased Swelling, Temperature Above 101 F Bathing Instructions: NORBERT Roberts DO Oct 16, 2017 11:09
[2017-10-16 12:00] VITALS: BP 174/88
[2017-10-17] MEDS ORDERED: ONDA4TAB8 PO (03:30)
[2017-10-17] MEDS ORDERED: PANT40TA2 PO (03:30)
--- NOTE | 2017-10-20 12:20 | Physician Query Clarification ---
PQ-Conflicting Diagnosis Admission/Discharge Admission Date: Oct 12, 2017 at 20:43 Discharge Date: Oct 16, 2017 at 12:45 The medical record reflects the following clinical scenario: History/Risk Factors: fever, carcinoid Clinical Findings: T-101 Pulse-101 Resp-18 Treatment: antibiotics Question: Do you agree with the impression of the SEPSIS per Dr Oneal. Please document a response below. PHYSICIAN RESPONSE Do you agree w/Consulting Dx?: Yes In responding to this query, please exercise your independent professional judgment. The purpose of this communication is to more accurately reflect the complexity of your patients condition. The fact that a question is asked does not imply that any particular answer is desired or expected. Thank you for your timely response to this clarification. Requestors name: [ ] Phone # [ ] THIS PHYSICIAN QUERY FORM IS A PERMANENT PART OF THE MEDICAL RECORD SONJA JIMENEZ Oct 20, 2017 12:20 NORBERT COE DO Oct 25, 2017 11:25
--- NOTE | 2017-10-25 11:50 | Discharge Summary ---
Diagnosis/Chief Complaint Date of Admission Oct 12, 2017 at 20:43 Date of Discharge Oct 16, 2017 at 12:45 Admission Diagnosis Admission Diagnosis RLQ pain EnteroColitis at anastomosis Nausea and vomiting Diarrhea Carcinoid Tumor Stage IV Discharge Diagnosis Sepsis RLQ pain EnteroColitis at anastomosis Nausea and vomiting Diarrhea Carcinoid Tumor Stage IV Reason Hospital Visit HPI per ED: Patient is a 46 year old female who presents to the ED for RLQ abdominal pain x6 hours duration. She states that it started early this afternoon while at work and has worsened since the onset. Patient admits to some nausea without vomiting that began 2-3 hours ago. She has had 3 bowel movements today with them progressively getting more watery. 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 Coe about 2 months ago. She states that she is not receiving any treatment for the cancer at this time and sees Dr. Bauman. Patient states that the tumor is stage 4 and she has some residual tumor in her abdomen and also has a suspicious spot in her lung. 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 She states pain started about 4-5 hours before that. She was crying because of the pain and concern for what it could mean. She thought it kind of felt like when she had "obstructive symptoms". She stated she had had a BM in the morning but no flatus. She described the pain as 8 out of 10; radiating to middle. I next saw her in the ER around 20: 15. She was febrile and had an elevated WBC. Discharge Summary Procedures: none Discharge Physical Examination Allergies: Coded Allergies: Sulfa (Sulfonamide Antibiotics) (Verified Allergy, Mild, RASH, 11/05/12) acetaminophen (Verified Adverse Reaction, Mild, N/V, 11/05/12) oxycodone HCl (Verified Adverse Reaction, Mild, N/V, 11/05/12) General Appearance: Alert, No Acute Distress Respiratory: Clear to Auscultation, Normal Air Movement Cardiovascular: Regular Rate, No Murmurs Abdominal: Normal Bowel Sounds, Soft, No Tenderness Neuro: Normal Speech Psych/Mental Status: Mental Status NL Hospital Course Patient is a 47-year-old female who was admitted secondary to right lower quadrant pain and inflammation seen around the previous anastomosis. She had nausea vomiting and met criteria for sepsis; with a temperature 101 and tachycardia. Patient was made NPO given IVF, antiemetics and IV antibiotics. Slowly over the next few days patient gradually improved symptoms was able to start eating and was eventually sent home in stable condition. During the hospital admission she had a small bowel follow-through to make sure she did not have an obstruction and the contrast went through and showed no obstruction. Discharge Instructions to patient/family Please see electronic discharge instructions given to patient. Discharge Medications Reviewed and agree with Discharge Medication list on patient's Discharge Instruction sheet Clinical Quality Measures DVT/VTE Risk/Contraindication: Risk Factor Score Per Nursin RFS Level Per Nursing on Admit: 3=High NORBERT COE DO Oct 25, 2017 11:50
== END 2017-10-16 12:45 | disposition home or self-care (01) | DRG 872 ==
LOC: EDUNIT# 18:42 → ER 18:43 → 4TH 20:43
PROVIDERS: ADMIT Surgery; ATTEND Surgery
DX: A41.9 Sepsis, unspecified organism (principal); C7A.021 Malignant carcinoid tumor of the cecum; C79.89 Secondary malignant neoplasm of other specified sites; Q61.3 Polycystic kidney, unspecified; K52.9 Noninfective gastroenteritis and colitis, unspecified; D72.829 Elevated white blood cell count, unspecified; R00.0 Tachycardia, unspecified; R74.8 Abnormal levels of other serum enzymes; K63.89 Other specified diseases of intestine; F32.9 Major depressive disorder, single episode, unspecified; F41.9 Anxiety disorder, unspecified; Q96.9 Turner's syndrome, unspecified; E55.9 Vitamin D deficiency, unspecified; H91.93 Unspecified hearing loss, bilateral; R91.8 Other nonspecific abnormal finding of lung field; R79.89 Other specified abnormal findings of blood chemistry; Z90.5 Acquired absence of kidney
CPT/HCPCS: 36415; 71045; 71260; 74177; 74250; 80053; 81000; 83605; 83690; 83735; 85007; 85025; 85027; 85610; 85730; 87040; 87077; 87088; 87324; 87449; 96361; 96365; 96375; 96376

== ENCOUNTER 2017-10-17 00:32 | Emergency (ER) | payer OTHER ==
[~2017-10-17] VITALS: Ht 139.7 cm; Wt 56.0 kg
[~2017-10-17 00:32] MED LIST changes: +CIPR500T4 PO; +METR500T21 PO
--- OUTSIDE RECORDS SUMMARY | 2017-10-17 00:38 | XMS REPORT ---
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 27772319 Problem Irritable bowel syndrome without diarrhea K58.9 Active 18325839 Problem Hearing loss, bilateral H91.93 Active 89794754 Problem IBS (irritable bowel syndrome) K58.9 Active 91248991 Problem Generalized anxiety disorder F41.1 Active 334105025 Problem Vitamin D deficiency E55.9 Active 90366191 Problem Osteopenia M85.80 Active 091698074 Problem Symptomatic premature menopause E28.310 Active 866577766 Problem Arthralgia M25.50 Active 35561319 Problem History of nephrectomy Z90.5 Active 958034372 Problem Neck pain M54.2 Active [id number] ALLERGIES No Information ENCOUNTERS Encounter Location Date Diagnosis [place] [address], [place] [address] Sep, Major depressive disorder, recurrent, moderate F33.1 and Arthralgia M25.50 [place] [id number], [place] [address] Sep, Generalized anxiety disorder F41.1 and Chronic use of benzodiazepine for therapeutic purpose Z79.899 [address], [place] [address] Aug, Osteopenia M85.80 ; 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 ; Generalized anxiety disorder F41.1 ; Vitamin D deficiency E55.9 and Major depressive disorder, recurrent, moderate F33.1 [place] [id number] [place] [address] Aug, Generalized anxiety disorder F41.1 [facility] [address] [place] [id number] [place] [address]461[address] 96[address] Jul, Osteopenia M85.80 [place] [address] [place] [id number] [place] [address]40[address] 99[address] June, Generalized anxiety disorder F41.1 [facility] [address] [place] [address] [id number] [place] [address] May, Acute nasopharyngitis J00 [facility] [address] [place] [id number] [place] [address] May, Sore in nose J34.89 [place] [address] [place] [id number] [place] [address]60- 80[address] Apr, Osteopenia M85.80 and Generalized anxiety disorder F41.1 [place] [address] [place] [id number] [place] [address]28[address]- 67[address] Feb, [place] [address] [place] [id number] [place] [address] 22857- 3626 Nov, Depression F32.9 ; Osteopenia M85.80 ; Generalized anxiety disorder F41.1 ; Irritable bowel syndrome without diarrhea K58.9 ; Vitamin D deficiency E55.9 ; Arthralgia M25.50 ; 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 ; General medical exam Z00.00 and Long-term use of high-risk medication Z79.899 [facility] [address] [place] [address] 33[address]- 6990 Sep, Depression F32.9 and Osteopenia M85.80 [place] [address] [place] [id number] [place] [address] 58596- 2560 Aug, Depression F32.9 [place] [address] [place] [id number] [place] [address] 8[address]25- 17[address] June, Depression F32.9 [place] [address] [place] [id number] [place] [address] 98077- 8710 May, Depression F32.9 [facility] [address] [address] Mar, Depression F32.9 [facility] [address] [place] [id number] [place] [address] 98368- 5237 Mar, Depression F32.9 ; 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 ; Irritable bowel syndrome without diarrhea K58.9 ; Symptomatic premature menopause E28.310 ; History of nephrectomy Z90.5 ; Neck pain M54.2 ; Non-healing skin lesion of nose L98.9 and Vitamin D deficiency E55.9 [place] [address] [place] [id number] [place] [address]- 9628 Feb, [place] [address] [place] [id number] [place] [address] 87792- 4762 Jan, [place] [address] [place] [id number] [place] [address] 87610- 6689 Dec, Hearing loss, bilateral H91.93 [place] [address] [place] [id number] [place] [address] 33727- 6657 Nov, [place] [address] [place] [id number] [place] [address] 48023- 2242 Nov, [place] [address] [place] [id number] [place] [address] 07452- 2976 Nov, [facility] [address] [place] [id number] [place] [address] 60068- 0690 Oct, Depression F32.9 ; 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39 [place] [address] [address] Sep, [place] [address] [address] June, [place] [address] [address]- [address] Mar, Osteopenia M85.80 [place] [address] 6[address] Feb, Depression F32.9 ; 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 ; Abnormal finding on CT scan R93.8 ; Irritable bowel syndrome without diarrhea K58.9 ; Symptomatic premature menopause E28.310 ; History of nephrectomy Z90.5 ; Neck pain M54.2 and Arthralgia M25.50 [place] [address] [address] Feb, [place] [address] [address] Feb, [place] [address] [address] Jan, Depression F32.9 ; 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 ; Abnormal finding on CT scan R93.8 ; Irritable bowel syndrome without diarrhea K58.9 ; Symptomatic premature menopause E28.310 ; History of nephrectomy Z90.5 ; Neck pain M54.2 and Arthralgia M25.50 [place] [address] [place] [id number] [place] [address] 98[address]- 36[address] Jan, Depression F32.9 and Generalized anxiety disorder F41.1 [facility] [address] [place] [id number], [place] [address] Jan, Halie rash of groin B37.89 ; Antibiotic long-term use Z79.2 and Sinusitis 473.9 [facility] [address], [place] [address] Oct, 2014 Unspecified breast screening V76.10 [facility] [address], [place] [address] June, Sinusitis 473.9 [facility] [address], [place] [address] May, [facility] [address], [place] [address] May, [facility] [address] [address] Apr, [facility] [address], [place] [address] Mar, [facility] [address], [place] [address] Mar, [facility] [address], [place] [address] Mar, [facility] [address], [place] [address] 6[address] Mar, [facility] [address], [place] [address] Feb, [facility] [address], [place] [address] 8[address] Feb, [facility] [address], [place] [address] Feb, [facility] [address] [place] [id number], [place] [address]- 5[address] Feb, [facility] [address] [place] [address] [place] [address] Feb, [facility] [place] [facility] [address] [id number] [place] [address]- 4647 Feb, [facility] [place] [facility] [address] [id number] [place] [address] Jan, [facility] [place] [facility] [address] [id number] [place] [address] Jan, [facility] [place] [facility] [address] [id number] [place] [address]- 1447 Dec, [facility] [place] [facility] [address] [id number] [place] [address]- 1308 Dec, [facility] [place] [facility] [address] [id number] [place] [address]- 9533 Nov, [facility] [place] [facility] [address] [id number] [place] [address]- 2152 Nov, [facility] [place] [facility] [address] [id number] [place] [address]- 7596 Oct, [facility] [place] [facility] [address] [id number] [place] [address]- 8[address] Oct, [facility] [place] [facility] [address] [id number] [place] [address]- 9022 Oct, [facility] [place] [facility] [address] [id number] [place] [address]- 7959 Oct, [facility] [place] [facility] [address] [id number] [place] [address]- 5296 Nov, [facility] [place] [facility] [address] [id number] [place] [address]- 2950 Nov, [facility] [place] [facility] [address] [id number] [place] [address]- 5063 Sep, [facility] [place] [facility] [address] [id number] [place] [address]- 9332 Sep, [facility] [place] [facility] [address] [facility] [id number] [address] Sep, [facility] [address] [place] [address] [id number], [place] [address] Jul, [facility] [address] [id number], [place] [address] June, [facility] [address] [id number], [place] [address] June, [facility] [address] [facility] [id number] [address] May, [facility] [address] [place] [address] [id number], [place] [address]- [address] May, [facility] [address] [id number], [place] [address] Apr, IMMUNIZATIONS No Known Immunizations SOCIAL HISTORY Never Assessed REASON FOR VISIT Controlled Med Refill PLAN OF CARE VITAL SIGNS MEDICATIONS Medication Instructions Dosage Frequency Start Date End Date Duration Status Clonazepam 1 MG Orally Once a day at hs prn 1 tablet 6 days Active RESULTS No Results PROCEDURES No [...] Stage 4 Bowel Cancer-Dr Bauman, Dr Clement ([place]) Medical History Antibiotic long-term use Medical History Abnormal finding on CT scan Medical History Non-healing skin lesion of nose Surgical History hernia repair, hiatal Surgical History cholecystectomy Surgical History tonsillectomy Surgical History appendectomy Surgical History Kidney surgery, right kidney removed 06/1996 Surgical History Otolaryngologic surgery tubes in ears Surgical History bowel obstruction 08/03/17 Hospitalization History surgical
--- OUTSIDE RECORDS SUMMARY | 2017-10-17 00:42 | XMS REPORT | Continuity of Care Document ---
Author Author [facility] Address Unknown Phone Unavailable Allergies Active Description Code Type Severity Reaction Onset Reported/Identified Relationship to Patient Clinical Status Yes acetaminophen [id number] Drug Allergy Mild N/V 11/05/2012 Yes oxycodone HCl [id number] Drug Allergy Mild N/V 11/05/2012 Yes Sulfa (Sulfonamide Antibiotics) [id number] Drug Allergy Mild RASH 2012 Medications There [...] ARGUETA APRNINA R 684 IMPETIGO 04/17/2010 LIBERTAD OROSOC DO 684 IMPETIGO 05/23/2012 296.32 MO DEPRESSIVE [...] K 296.32 MO DEPRESSIVE RECURRENT MODERATE 05/23/2012 DEIB OROSCO DOA K 300.02 AN GEN ANXIETY 09/21/2012 ANA LUISA ARANGOLIBERATD K 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 09/21/2012 ANA LUISA [...] ABDOMINAL PAIN, LEFT LOWER QUADRANT 10/30/2013 ELLIE RECOVERY AUDITOR, CANDELARIO R 789.00 ABDOMINAL PAIN UNSPECIFIED SITE 10/30/2013 ELLIE RECOVERY AUDITOR, CANDELARIO R 789.00 ABDOMINAL PAIN UNSPECIFIED SITE 10/30/2013 ELLIE CALDWELL, CANDELARIO R 789.00 ABDOMINAL PAIN UNSPECIFIED SITE 10/30/2013 LIBERTAD OROSCO DO K 789.00 ABDOMINAL PAIN UNSPECIFIED SITE 12/05/2013 ELLIE CALDWELL, CANDELARIO R 564.1 IRRITABLE BOWEL SYNDROME 12/05/2013 ARTHUR ARGUETA APRNINA R 564.1 IRRITABLE BOWEL SYNDROME 12/05/2013 LIBERTAD OROSCO DO 564.1 IRRITABLE BOWEL SYNDROME 12/22/2013 STACY CERRATO RECOVERY AUDITOR Ot 558.9 NONINF GASTROENTERIT NEC 12/22/2013 STACY CERRATO RECOVERY AUDITOR Ot 789.04 ABDOMINAL PAIN, LEFT LOWER QUADRANT 01/28/2014 OPAL DAVIS MD Ot 455.0 INT HEMORRHOID W/O COMPL 01/28/2014 OPAL DVAIS MD Ot 455.3 EXT HEMORRHOID W/O COMPL 01/28/2014 OPAL DAVIS MD Ot 787.99 OTHER GI SYSTEM SYMPTOMS 03/04/2014 LIBERTAD OROSCO DO V07.4 HORMONE REPLACEMENT THERAPY (POSTMENOPAUSAL) 03/04/2014 LIBERTAD OROSCO DO V72.31 SAFE EXPERT EXAM, ROUTINE 03/04/2014 LIBERTAD OROSCO DO V72.62 [...] ACQUIRED ABSENCE OF KIDNEY 10/27/2015 LAWANDA SHAVER BATCH RECORDS CLERK Ot Z12.31 ENCNTR SCREEN MAMMOGRAM FOR MALIGNANT NE 11/13/2015 LAWANDA SHAVER BATCH RECORDS CLERK Ot Z12.31 ENCNTR SCREEN MAMMOGRAM FOR MALIGNANT NE 12/09/2016 OPAL DAVIS MD Ot V72.84 EXAM PRE-OPERATIVE NOS 12/09/2016 OROSCO DO, LIBERTAD K Ot V76.12 OTH SCREEN MAMMO-MALIGN NEOPLASM OF JORDAN 12/09/2016 Ot E28.310 SYMPTOMATIC PREMATURE MENOPAUSE 12/09/2016 Ot M85.80 OTH DISRD OF BONE DENSITY AND STRUCTURE, 12/09/2016 Ot 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, UNSPECIFIED 12/09/2016 MADLLAWANDA Vance BATCH RECORDS CLERK Ot Z12.31 ENCNTR SCREEN MAMMOGRAM FOR MALIGNANT [...] 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, UNSPECIFIED 12/09/2016 MADLTOANLAWANDA Vance BATCH RECORDS CLERK Ot Z12.31 ENCNTR SCREEN MAMMOGRAM FOR MALIGNANT [...] HISTORY OF OTHER DISEASES OF TH 01/30/2017 ORSAMARIA CALIXTO MD Ot Z87.448 PERSONAL HISTORY OF [...] K43.0 INCISIONAL HERNIA WITH OBSTRUCTION, WITH 08/07/2017 DELCARREI DO NORBERT B Ot K56.690 OTHER PARTIAL INTESTINAL OBSTRUCTION 08/07/2017 CAROLIN DO NORBERT B Ot K56.699 OTHER INTESTNL OBST UNSP TO PARTIAL V 08/07/2017 DELMAN DO, NORBERT B Ot M19.90 UNSPECIFIED OSTEOARTHRITIS, UNSPECIFIED 08/07/2017 CAROLIN DO NORBERT B Ot Z90.5 ACQUIRED ABSENCE OF KIDNEY 08/15/2017 OPAL DAVSI MD Ot V72.84 EXAM PRE-OPERATIVE NOS 08/15/2017 LIBERTAD OROSCO DO Ot V76.12 OTH SCREEN MAMMO-MALIGN NEOPLASM OF JORDAN 08/15/2017 Ot E28.310 SYMPTOMATIC PREMATURE MENOPAUSE 08/15/2017 Ot M85.80 OTH DISRD OF BONE DENSITY AND STRUCTURE, 08/15/2017 Ot 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, UNSPECIFIED 08/15/2017 MADVanceJOELLELAWANDA L BATCH RECORDS CLERK Ot Z12.31 ENCNTR SCREEN MAMMOGRAM FOR MALIGNANT [...] 08/30/2017 Ot 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, UNSPECIFIED 08/30/2017 MADVance LAWANDA L BATCH RECORDS CLERK Ot Z12.31 ENCNTR SCREEN MAMMOGRAM FOR MALIGNANT NE 08/30/2017 CAROLIN ARANGO, NORBERT B Ot C7A.00 MALIGNANT CARCINOID TUMOR OF UNSPECIFIED 09/28/2017 NYA MENDEZ MD Ot 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 09/28/2017 ANDREA GRANADOS, NYA Ot R91.1 SOLITARY PULMONARY NODULE Procedures Code Description [place] [address] ROUTINE VENIPUNCTURE 09/21/2012 06379 CBC 09/21/2012 30740 LIPID PANEL 09/21/2012 73677 CMP 09/21/2012 4810142 GFR CALC (RESULT ONLY) 09/21/2012 63004 TSH 09/21/2012 13259 T4 FREE 09/21/2012 [id number] EXCISION OF ILEUM, OPEN APPROACH 08/04/2017 [id number] EXCISION OF CECUM, OPEN APPROACH 08/04/2017 [id number] REPAIR ABDOMINAL WALL, OPEN APPROACH 08/04/2017 Results [...] - 12/09/16 04:54 Urine color determination [facility] Urine clarity determination [facility] Urine pH measurement by test strip 6 [...] NRG Blood erythrocyte morphology finding identification [facility] Comprehensive metabolic panel - 01/30/17 17:30 Serum [...] 08/03/17 12:40 Blood monocytes/100 leukocytes 3 % NRG Manual blood segmented neutrophils/100 leukocytes 87 % NRG Blood band neutrophils/100 leukocytes 2 % NRG Manual blood lymphocytes/100 leukocytes 8 % NRG Manual eosinophils/100 leukocytes in nose 0 % NRG Manual blood basophils/100 leukocytes 0 % NRG Blood erythrocyte morphology finding identification [facility] Comprehensive metabolic panel - 08/03/17 12:40 Serum [...] Status Pt. Type Provider Facility Loc./Unit Complaint [id number] 03/05/2014 08:11:00 03/05/2014 23:59:59 [facility] Outpatient LIBERTAD OROSCO DO [id number] 01/07/2014 10:03:00 01/07/2014 23:59:[address] [facility] Outpatient CANDELARIO ARGUETA APRN [id number] 12/05/2013 09:07:00 12/05/2013 23:59:[address] [facility] Outpatient CANDELARIO ARGUETA APRN [id number] 10/30/2013 13:49:00 10/30/2013 23:59:[address] [facility] Outpatient CANDELARIO ARGUETA APRN [id number] 09/21/2012 10:50:00 09/21/2012 23:59:[address] [facility] Outpatient LIBERTAD OROSCO DO [id number] 05/23/2012 10:43:00 Document Registration [id number] 11/09/2016 08:41:00 Document Registration [id number] 08/31/2017 12:20:00 08/31/2017 23:59:59 CLS Outpatient LAWANDA SHAVER APRN [facility] [id number] 11/08/2016 08:40:00 Document Registration [id number] 03/11/2016 08:41:00 Document Registration [id number] 09/28/2017 09:00:00 09/28/2017 23:59:59 CLS Preadmit NYA MENDEZ MD [facility] CARD MALIGNANT CARCINOID TUMOR OF THE CECUM,NICHOLS SYND [id number] 09/27/2017 09:00:00 09/27/2017 23:59:59 CLS PreadNYA Shrestha MD [facility] MALIGNANT CARCINOID TUMOR OF THE CECUM,NICHOLS SYND [id number] 09/14/2017 12:00:00 09/14/2017 23:59:59 CLS Preadmit NYA MENDEZ MD [facility] CARD [id number] 09/01/2017 12:55:00 09/01/2017 23:59:59 CLS Preadmit NYA MENDEZ MD [facility] CARD MALIGNANT CARCINOID TUMOR OF THE CECUM [id number] 09/01/2017 12:50:00 09/01/2017 23:59:59 CLS Outpatient NYA MENDEZ MD [facility] RAD MALIGNANT CARCINOID TUMOR OF THE CECUM [id number] 08/30/2017 14:54:00 08/30/2017 23:59:59 CLS Outpatient NYA MENDEZ MD [facility] ONC [id number] 08/15/2017 11:01:00 08/15/2017 23:59:59 CLS Outpatient NORBERT COE DO [facility] LAB CARCINOID TUMOR [id number] 08/03/2017 14:30:00 08/07/2017 13:15:00 DIS Inpatient NORBERT COE DO [facility] 4TH SMALL BOWEL OBSTRUCTION [id number] 01/30/2017 16:56:00 01/30/2017 20:17:00 DIS Emergency DURGA GRANADOS, ROSAMARIA Ortega [facility] ER DIARRHEA,VOMITING, COUGH [id number] 12/09/2016 04:37:00 12/09/2016 07:37:00 DIS Emergency ANNITA SPENCER DO [facility] ER LEFT SIDE PAIN,NAUSEA [id number] 10/26/2015 07:07:00 10/26/2015 23:59:59 CLS Outpatient LAWANDA SHAVER BATCH RECORDS CLERK [facility] RAD SCREENING [id number] 06/20/2015 08:24:00 06/20/2015 11:01:00 DIS Emergency GALILEO CEBALLOS MD [facility] ER NAUSEA,VOMITING,L SIDE PAIN [id number] 12/26/2014 02:35:00 12/26/2014 05:29:00 DIS Emergency ANNITA SPENCER DO Iveth [facility] ER LEFT SIDE HURTS [id number] 10/22/2014 10:14:00 10/22/2014 23:59:59 CLS Outpatient ANA LUISA LIBERTAD ARANGO Iveth [facility] RAD SCREENING [id number] 01/28/2014 09:12:00 01/28/2014 12:30:00 DIS Outpatient OPAL DAVIS MD [facility] SDC ABD PAIN [id number] 01/24/2014 05:50:00 01/24/2014 23:59:59 CLS Outpatient OPAL DAVIS MD [facility] PREOP ABD PAIN [id number] 12/22/2013 11:15:00 12/22/2013 13:14:00 DIS Emergency STACY CERRATO APRN [facility] ER PAIN IN LOWER ABD ON L SIDE [id number] 10/29/2013 09:38:00 10/29/2013 11:54:00 DIS Emergency KIMBERLY WHITEHEAD MD [facility] ER LEFT SIDE PAIN/ CRAMPING [id number] 09/19/2013 10:40:00 09/19/2013 12:30:00 DIS Emergency SEVERO LAN DO [facility] ER DIZZINESS [id number] 04/03/2013 16:17:00 04/03/2013 19:12:00 DIS Emergency ANNITA SPENCER DO [facility] ER N/V/D [id number] 11/05/2012 16:53:00 11/05/2012 20:19:00 DIS Emergency KIMBERLY WHITEHEAD MD [facility] ER [id number] 10/13/2017 12:41:00 Document Registration [id number] 10/03/2017 08:08:00 ACT Outpatient NYA MENDEZ MD [facility] RAD MALIGNANT CARCINOID TUMOR OF THE CECUM, NICHOLS SYND [id number] 02/26/2015 10:36:00 Document Registration
[2017-10-17] MEDS ORDERED: PANTOPRAZOLE 40 MG (PROTONIX) VIAL IV STA (01:20)
[2017-10-17] MEDS ORDERED: LACTATED RINGERS 1,000 ML IV ONE (01:20)
--- NOTE | 2017-10-17 01:26 | ED GI ---
General Chief Complaint: Abdominal/GI Problems Stated Complaint: VOMITING,THINKS OVER MEDICATED Nursing Triage Note: PT PRESENTS TO ER WITH COMPLAINT OF NAUSEA AND VOMTING. PT WAS D/C FROM HOSPITAL TODAY FOR INFLAMMED BOWEL. PT STATES SHE STARTED VOMITING AFTER TAKING HER ANTIDEPRESSANTS AND ANTIANXIETY MEDS. PT STATES SHE HAD BEEN OFF THEM DURING HER HOSPITAL STAY. Sepsis Screen: No Definite Risk Source of Information: Patient History of Present Illness Date Seen by Provider: Oct 17, 2017 Time Seen by Provider: 01:10 Initial Comments PT ARRIVES VIA POV FROM HOME PT WAS DISMISSED FROM HOSPITAL THIS AFTERNOON AROUND 1300 HAS BEEN HOSPITALIZED SINCE 10/12 FOR INFLAMMATION OF COLON PT HAS HISTORY OF CARCINOID TUMOR AND HAD HAD BOWEL RESECTION AND INFLAMMATORY CHANGES OF COLON WERE AROUND THE ANASTAMOSIS SITE. PT WAS DISMISSED ON CIPRO + FLAGYL, AND PT HAD BEEN TAKING THOSE MEDICATIONS IN PILL FORM PRIOR TO DISMISSAL AND HAD NOT HAD ANY PROBLEMS PT STATES SHE BEGAN VOMITING TONIGHT AROUND 2300 Allergies and Home Medications Allergies Coded Allergies: Sulfa (Sulfonamide Antibiotics) (Verified Allergy, Mild, RASH, 11/05/12) acetaminophen (Verified Adverse Reaction, Mild, N/V, 11/05/12) oxycodone HCl (Verified Adverse Reaction, Mild, N/V, 11/05/12) Home Medications Alendronate Sodium 70 Mg Tablet, 70 MG PO Sa, (Reported) Cholecalciferol (Vitamin D3) 5,000 Unit Capsule, 5,000 UNIT PO DAILY, (Reported) Ciprofloxacin HCl 500 Mg Tablet, 500 MG PO BID Prescribed by: NORBERT COE on 10/16/17 1108 Clonazepam 1 Mg Tablet, 1 MG PO HS, (Reported) Diclofenac Sodium 75 Mg Tablet.dr, 75 MG PO BID, (Reported) Duloxetine HCl 30 Mg Capsule.dr, 30 MG PO HS, (Reported) Metronidazole 500 Mg Tablet, 500 MG PO TID Prescribed by: NORBERT COE on 10/16/17 1108 Past Lmkoxrl-Mgqtdl-Janzzt Hx Patient Social History Alcohol Use: Occasionally Uses Recreational Drug Use: No Smoking Status: Never a Smoker 2nd Hand Smoke Exposure: No Recent Foreign Travel: No Contact w/Someone Who Travel: No Recent Infectious Disease Expo: No Recent Hopitalizations: No Immunizations Up To Date Date of Influenza Vaccine: Nov 06, 2016 Seasonal Allergies Seasonal Allergies: No Past Medical History Surgeries: Yes (RIGHT NEPHRECTOMY--" KIDNEY", VENTRAL HERNIA REPAIR, BMT'S , ) Abdominal, Adenoidectomy, Appendectomy, Ear Surgery, Gallbladder, Nephrectomy, Tonsillectomy Respiratory: No Cardiac: No Neurological: No Reproductive Disorders: Yes (NICHOLS'S SYNDROME) Genitourinary: Yes (S/P RIGHT NEPHRECTOMY FOR NON-FUNCTIONING KIDNEY) Kidney Infection, Bladder Infection, Kidney Stones, Polycystic Kidney Disease Gastrointestinal: Yes (HERNIA REPAIR, HEPATITIS A) Abdominal Hernia, Colitis, Hepatitis, Gall Bladder Disease, Irritable Bowel Musculoskeletal: Yes Arthritis Endocrine: Yes (NICHOLS'S SYNDROME) HEENT: Yes Chronic Ear Infection, Tonsilitis Hearing Impairment: Hard of Hearing Cancer: Yes Colon Did You Recieve Any Treatments: No Psychosocial: Yes Anxiety, Depression Integumentary: No Blood Disorders: No Family Medical History Patient reports no known family medical history. Cancer, Hypertension Physical Exam Vital Signs Vital Signs - First Documented 10/17/17 01:05 Temp 99.3 Pulse 96 Resp 20 B/P (MAP) 168/100 (122) Pulse Ox 16 O2 Delivery Room Air Capillary Refill : Less Than 3 Seconds Height/Weight/BMI Height: 4'7.00" Weight: 123lbs. 6.0oz. 55.496457dm; 28.7 BMI Method:Stated Progress/Results/Core Measures Results/Orders Lab Results Laboratory Tests Test 10/17/17 01:30 10/17/17 01:40 Range/Units White Blood Count 8.3 4.3-11.0 10^3/uL Red Blood Count 3.93 L 4.35-5.85 10^6/uL Hemoglobin 11.6 11.5-16.0 G/DL Hematocrit 34 L 35-52 % Mean Corpuscular Volume 86 80-99 FL Mean Corpuscular Hemoglobin 30 25-34 PG Mean Corpuscular Hemoglobin Concent 34 32-36 G/DL Red Cell Distribution Width 13.0 10.0-14.5 % Platelet Count 254 130-400 10^3/uL Mean Platelet Volume 9.2 7.4-10.4 FL Neutrophils (%) (Auto) 89 H 42-75 % Lymphocytes (%) (Auto) 6 L 12-44 % Monocytes (%) (Auto) 5 0-12 % Eosinophils (%) (Auto) 0 0-10 % Basophils (%) (Auto) 0 0-10 % Neutrophils # (Auto) 7.4 1.8-7.8 X 10^3 Lymphocytes # (Auto) 0.5 L 1.0-4.0 X 10^3 Monocytes # (Auto) 0.4 0.0-1.0 X 10^3 Eosinophils # (Auto) 0.0 0.0-0.3 10^3/uL Basophils # (Auto) 0.0 0.0-0.1 10^3/uL Sodium Level 140 135-145 MMOL/L Potassium Level 3.7 3.6-5.0 MMOL/L Chloride Level 107 98-107 MMOL/L Carbon Dioxide Level 19 L 21-32 MMOL/L Anion Gap 14 5-14 MMOL/L Blood Urea Nitrogen 10 7-18 MG/DL Creatinine 0.69 0.60-1.30 MG/DL Estimat Glomerular Filtration Rate > 60 BUN/Creatinine Ratio 14 Glucose Level 120 H 70-105 MG/DL Calcium Level 9.2 8.5-10.1 MG/DL Corrected Calcium 9.4 8.5-10.1 MG/DL Magnesium Level 1.9 1.8-2.4 MG/DL Total Bilirubin 0.5 0.1-1.0 MG/DL Aspartate Amino Transf (AST/SGOT) 17 5-34 U/L Alanine Aminotransferase (ALT/SGPT) 175 H 0-55 U/L Alkaline Phosphatase 181 H 40-136 U/L Total Protein 6.4 6.4-8.2 GM/DL Albumin 3.8 3.2-4.5 GM/DL Amylase Level 75 25-125 U/L Lipase 24 8-78 U/L Urine Color YELLOW Urine Clarity CLEAR Urine pH 6.5 5-9 Urine Specific Theresa 1.010 L 1.016-1.022 Urine Protein 2+ H NEGATIVE Urine Glucose (UA) NEGATIVE NEGATIVE Urine Ketones 2+ H NEGATIVE Urine Nitrite NEGATIVE NEGATIVE Urine Bilirubin NEGATIVE NEGATIVE Urine Urobilinogen NORMAL NORMAL MG/DL Urine Leukocyte Esterase 1+ H NEGATIVE Urine RBC (Auto) NEGATIVE NEGATIVE Urine RBC NONE /HPF Urine WBC RARE /HPF Urine Squamous Epithelial Cells 0-2 /HPF Urine Crystals NONE /LPF Urine Bacteria NEGATIVE /HPF Urine Casts NONE /LPF Urine Mucus SMALL H /LPF Urine Culture Indicated NO My Orders Orders - ANNITA SPENCER DO Saline Lock/Iv-Start (10/17/17 01:20) Amylase (10/17/17 01:20) Cbc With Automated Diff (10/17/17 01:20) Comprehensive Metabolic Panel (10/17/17 01:20) Lipase (10/17/17 01:20) Magnesium (10/17/17 01:20) Ua Culture If Indicated (10/17/17 01:20) Acute Abd Series (10/17/17 01:20) Ondansetron Injection (Zofran Injectio (10/17/17 01:30) Pantoprazole Injection (Protonix Injecti (10/17/17 01:20) Saline Lock/Iv-Start (10/17/17 01:20) Lactated Ringers (Lr 1000 Ml Iv Solution (10/17/17 01:20) Ct Abdomen/Pelvis Wo (10/17/17 02:19) Medications Given in ED Current Medications Medications Dose Ordered Sig/Nestor Route Start Time Stop Time Status Last Admin Dose Admin Lactated Ringer's 1,000 ml @ 0 mls/hr Q0M ONCE IV 10/17/17 01:20 10/17/17 01:23 DC 10/17/17 01:42 1,000 MLS/HR Ondansetron HCl 4 mg ONCE ONCE IVP 10/17/17 01:30 10/17/17 01:31 DC 10/17/17 01:42 4 MG Vital Signs/I&O 10/17/17 01:05 Temp 99.3 Pulse 96 Resp 20 B/P (MAP) 168/100 (122) Pulse Ox 16 O2 Delivery Room Air Blood Pressure Mean: 122 Departure Impression Primary Impression: Nausea and vomiting Additional Impression: Colitis Disposition: 01 HOME, SELF-CARE Condition: Improved Departure-Patient Inst. Referrals: [facility] (PCP) Primary Care Physician SUMMER HUNG APRN (Family) Primary Care Physician NORBERT COE DO Patient Instructions: Microscopic Colitis, Nausea and Vomiting, Adult (DC) Add. Discharge Instructions: CLEAR LIQUIDS, SIPS AT A TIME--WATER, BROTH, JELLO, GATORADE TOMORROW IF YOU ARE BETTER, ADD BRATS DIET TO CLEAR LIQUIDS--BANANAS, RICE, APPLESAUCE, TOAST, SALTINES CONTINUE YOUR MEDICATIONS PRESCRIBED FOLLOW UP WITH DR. COE TOMORROW SCHEDULED All discharge instructions reviewed with patient and/or family. Voiced understanding. Scripts Pantoprazole Sodium (Protonix) 40 Mg Tablet.dr 40 MG PO DAILY, #15 TAB Prov: ANNITA SPENCER DO 10/17/17 Ondansetron (Zofran Odt) 4 Mg Tab.rapdis 4 MG PO Q4H for Nausea/Vomiting, #10 TAB Prov: ANNITA SPENCER DO 10/17/17 ANNITA SPENCER DO Oct 17, 2017 01:26
[2017-10-17] MEDS ORDERED: ONDANSETRON 4 MG/2 ML (SDV) Z0FRAN IVP ONE (01:30)
[2017-10-17 01:37] LABS: BASOPHILS % (AUTO) 0 % (0-10); EOSINOPHILS % (AUTO) 0 % (0-10); HEMATOCRIT 34 % (35-52); HEMOGLOBIN 11.6 G/DL (11.5-16.0); LYMPHOCYTES # (AUTO) 0.5 X 10^3 (1.0-4.0); LYMPHOCYTES % (AUTO) 6 % (12-44); MEAN CORPUSCULAR HEMOGLOBIN 30 PG (25-34); MEAN CORPUSCULAR HGB CONC 34 G/DL (32-36); MEAN CORPUSCULAR VOLUME 86 FL (80-99); MEAN PLATELET VOLUME 9.2 FL (7.4-10.4); MONOCYTES # (AUTO) 0.4 X 10^3 (0.0-1.0); MONOCYTES % (AUTO) 5 % (0-12); NEUTROPHILS # (AUTO) 7.4 X 10^3 (1.8-7.8); NEUTROPHILS % (AUTO) 89 % (42-75); PLATELET COUNT 254 10^3/uL (130-400); RED BLOOD COUNT 3.93 10^6/uL (4.35-5.85); WHITE BLOOD COUNT 8.3 10^3/uL (4.3-11.0)
[2017-10-17 01:45] LABS: BILIRUBIN,URINE NEGATIVE (NEGATIVE); CLARITY,URINE CLEAR; COLOR,URINE YELLOW; GLUCOSE, URINE (UA) NEGATIVE (NEGATIVE); KETONES,URINE 2+ (NEGATIVE); LEUKOCYTE ESTERASE ,URINE 1+ (NEGATIVE); NITRITE,URINE NEGATIVE (NEGATIVE); PH,URINE 6.5 (5-9); PROTEIN,URINE 2+ (NEGATIVE); UROBILINOGEN,URINE NORMAL (NORMAL)
[2017-10-17 01:54] LABS: BACTERIA,URINE NEGATIVE /HPF; SQUAMOUS EPITHELIAL CELL,UR 0-2 /HPF; WBC,URINE RARE /HPF
[2017-10-17 01:59] LABS: ALANINE AMINOTRANSFERASE 175 U/L (0-55); ALBUMIN 3.8 GM/DL (3.2-4.5); ALKALINE PHOSPHATASE 181 U/L (40-136); AMYLASE 75 U/L (25-125); BILIRUBIN,TOTAL 0.5 MG/DL (0.1-1.0); BUN/CREATININE RATIO 14; CALCIUM 9.2 MG/DL (8.5-10.1); CARBON DIOXIDE 19 MMOL/L (21-32); CHLORIDE 107 MMOL/L (98-107); CREATININE SERUM 0.69 MG/DL (0.60-1.30); GFR ESTIMATED > 60; GLUCOSE 120 MG/DL (70-105); LIPASE 24 U/L (8-78); MAGNESIUM 1.9 MG/DL (1.8-2.4); POTASSIUM 3.7 MMOL/L (3.6-5.0); SODIUM 140 MMOL/L (135-145); TOTAL PROTEIN 6.4 GM/DL (6.4-8.2)
[2017-10-17] MEDS ORDERED: PANT40TA2 PO (03:30)
[2017-10-17] MEDS ORDERED: ONDA4TAB8 PO (03:30)
[2017-10-17 03:35] VITALS: BP 145/88
--- NOTE | 2017-10-17 07:34 | Diagnostic Imaging Report ---
PROCEDURE: CT abdomen and pelvis without contrast. TECHNIQUE: Multiple contiguous axial images were obtained through the abdomen and pelvis without the use of intravenous contrast. INDICATION: Abdominal pain, nausea. CORRELATION STUDY: 10/12/2017 FINDINGS: LOWER THORAX: Small pleural effusions. Areas of atelectasis or less likely infiltrate particularly in the right lung base. Heart size borderline. EG junction unremarkable. LIVER: Unremarkable. GALLBLADDER: Absent with clips in the fossa. SPLEEN: Unremarkable. PANCREAS: Unremarkable. ADRENAL GLANDS: Unremarkable. KIDNEYS: Absent right kidney. Moderate left-sided hydronephrosis. No definitive ureteral calculus. ABDOMINAL AORTA: Unremarkable, nonaneurysmal. GASTROINTESTINAL TRACT: Postoperative changes in the right lower quadrant ileocecal valve. There is again noted rather pronounced inflammatory changes in the right lower quadrant. This could be postoperative versus infectious, inflammation, ischemic and/or enteritis. Overall findings do appear to be perhaps progressed from prior study. No organized fluid collections. Surgical change of the anterior abdominal wall midline. Lower ventral subcutaneous edema may be postoperative versus infectious/inflammation. No discrete organized abscess. URINARY BLADDER: Unremarkable. REPRODUCTIVE: Uterus appearing small. OSSEOUS STRUCTURES: No acute abnormality. OTHER: None. IMPRESSION: 1. Surgical changes of the right lower quadrant. Rather pronounced inflammatory changes present. This may be postoperative with possibility of infectious, inflammatory, enteritis and/or ischemic not excluded. Findings do appear to be progressed from prior study. No obstruction. 2. Lower ventral subcutaneous edema, may be postoperative versus infectious/inflammatory in nature. No discrete drainable abscess. 3. Moderate left-sided hydronephrosis with a solitary left kidney, absent right kidney. A preliminary report was provided by [employer]. Dictated by: Dictated on workstation # [id number]
--- NOTE | 2017-10-17 07:41 | Diagnostic Imaging Report ---
INDICATION: Abdominal pain, nausea TECHNIQUE: Single view chest with supine and upright radiographs of the abdomen. 2:12 AM CORRELATION STUDY: Chest 10/12/2017, small bowel study 10/13/2017 FINDINGS: Heart size enlarged. Mediastinum is prominent, lobulated appearance unchanged. Vasculature overall within normal limits. Multiple surgical clips and suture line in the right lower quadrant. A few air-fluid levels are present. High degree bowel obstruction, however, does not appear to be suggested. IMPRESSION: 1. Negative for acute cardiopulmonary abnormality. 2. A few prominent gas-filled loops of bowel with surgical changes in the right lower quadrant. This could reflect mild localized ileus. No evidence to suggest high degree bowel obstruction. Dictated by: Dictated on workstation # [id number]
== END 2017-10-17 03:35 | disposition home or self-care (01) ==
LOC: EDUNIT# 00:32 → ER 00:34
DX: K52.9 Noninfective gastroenteritis and colitis, unspecified (principal); F41.9 Anxiety disorder, unspecified; F32.9 Major depressive disorder, single episode, unspecified; Q96.9 Turner's syndrome, unspecified; Z87.19 Personal history of other diseases of the digestive system; Z85.038 Personal history of other malignant neoplasm of large intestine; Z87.448 Personal history of other diseases of urinary system; Z87.442 Personal history of urinary calculi; Z88.2 Allergy status to sulfonamides; Z88.5 Allergy status to narcotic agent; Z88.8 Allergy status to other drugs, medicaments and biological substances; Z90.5 Acquired absence of kidney; Z98.890 Other specified postprocedural states; Z90.89 Acquired absence of other organs
CPT/HCPCS: 36415; 74022; 74176; 80053; 81000; 82150; 83690; 83735; 85025; 96361; 96374; 96375

== ENCOUNTER 2017-11-11 21:01 | Inpatient (IN) | payer OTHER ==
[~2017-11-11] VITALS: Ht 139.7 cm; Wt 55.4 kg
[~2017-11-11 21:01] MED LIST changes: +PANT40TA2 PO
--- OUTSIDE RECORDS SUMMARY | 2017-11-11 21:06 | XMS REPORT ---
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 86027220 Problem Irritable bowel syndrome without diarrhea K58.9 Active 51108506 Problem Hearing loss, bilateral H91.93 Active 45740274 Problem IBS (irritable bowel syndrome) K58.9 Active 95474846 Problem Generalized anxiety disorder F41.1 Active 712712950 Problem Vitamin D deficiency E55.9 Active 10864796 Problem Osteopenia M85.80 Active 145723070 Problem Symptomatic premature menopause E28.310 Active 557206858 Problem Arthralgia M25.50 Active 44449159 Problem History of nephrectomy Z90.5 Active 015008213 Problem Neck pain M54.2 Active 28904068 ALLERGIES No Information ENCOUNTERS Encounter Location Date Diagnosis [place] [address] [id number] [place] [address] 90906- 1692 Oct, [place] [id number] [place] [address] 22210- 7490 Oct, [place] [id number] [place] [address] 30613- 7493 Sep, Major depressive disorder, recurrent, moderate F33.1 and Arthralgia M25.50 [place] [id number] [place] [address] 96560- 7291 Sep, Generalized anxiety disorder F41.1 and Chronic use of benzodiazepine for therapeutic purpose Z79.899 [place] [id number] [place] [address] 21212- 9334 Aug, Osteopenia M85.80 ; 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 ; Generalized anxiety disorder F41.1 ; Vitamin D deficiency E55.9 and Major depressive disorder, recurrent, moderate F33.1 [place] [id number] [place] [address] 79124- 7667 Aug, Generalized anxiety disorder F41.1 [place] [address] 78348- 6953 Jul, Osteopenia M85.80 [place] [address] 61410- 7953 June, Generalized anxiety disorder F41.1 [facility] [place] [address] 77982 -0489 May, Acute nasopharyngitis J00 [facility] [place] [address] 68557 -7236 May, Sore in nose J34.89 [place] [address] 19436- 4895 Apr, Osteopenia M85.80 and Generalized anxiety disorder F41.1 [place] [address] 63482- 0159 Feb, [place] [id number] [place] [address] 81056- 7754 Nov, Depression F32.9 ; Osteopenia M85.80 ; Generalized anxiety disorder F41.1 ; Irritable bowel syndrome without diarrhea K58.9 ; Vitamin D deficiency E55.9 ; Arthralgia M25.50 ; 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 ; General medical exam Z00.00 and Long-term use of high-risk medication Z79.899 [place] [id number] [place] [address] 95835- 8132 Sep, Depression F32.9 and Osteopenia M85.80 [place] [address] 82136- 2844 Aug, Depression F32.9 [place] [id number] [place] [address] 64661- 2451 June, Depression F32.9 [place] [id number] [place] [address] 29443- 6186 May, Depression F32.9 [place] [id number] [place] [address] 06251- 8206 Mar, Depression F32.9 [place] [id number] [place] [address] 669237- 4754 Mar, Depression F32.9 ; 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 ; Irritable bowel syndrome without diarrhea K58.9 ; Symptomatic premature menopause E28.310 ; History of nephrectomy Z90.5 ; Neck pain M54.2 ; Non-healing skin lesion of nose L98.9 and Vitamin D deficiency E55.9 [place] [id number] [place] [address] 22156- 5260 Feb, [place] [id number] [place] [address] 07663- 7114 Jan, [place] [id number] [place] [address] 68965- 7764 Dec, Hearing loss, bilateral H91.93 [place] [address] [address] [id number] [place] [address] 14520- 1773 Nov, [place] [id number] [place] [address] 24537- 0756 Nov, [place] [address] [id number] [place] [address] 94110- 8282 Nov, [place] [id number] [place] [address] 886394- 4563 Oct, Depression F32.9 ; 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 ; Irritable bowel syndrome without diarrhea K58.9 ; Symptomatic premature menopause E28.310 ; History of nephrectomy Z90.5 and Neck pain M54.2 [place] [id number] [place] [address] 30761- 8290 Sep, [place] [address] [id number] [place] [address] 76984- 7047 Sep, Depression F32.9 ; 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 ; Abnormal finding on CT scan R93.8 ; Irritable bowel syndrome without diarrhea K58.9 ; Symptomatic premature menopause E28.310 ; History of nephrectomy Z90.5 ; Neck pain M54.2 ; Arthralgia M25.50 ; Osteopenia M85.80 and Screening breast examination Z12.39 [place] [id number] [place] [address] 44373- 4864 Sep, [place] [address] [address] [id number] [place] [address] 94364- 9718 June, [place] [address] [address] [id number] [place] [address] 45843- 4156 Mar, Osteopenia M85.80 [place] [address] [id number] [place] [address] 60503- 3130 Feb, Depression F32.9 ; 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 ; Abnormal finding on CT scan R93.8 ; Irritable bowel syndrome without diarrhea K58.9 ; Symptomatic premature menopause E28.310 ; History of nephrectomy Z90.5 ; Neck pain M54.2 and Arthralgia M25.50 [place] [id number] [place] [address] 10350- 2274 Feb, [place] [id number] [place] [address] 04198- 3134 Feb, [place] [id number] [place] [address] 64413- 7929 Jan, Depression F32.9 ; 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 ; Abnormal finding on CT scan R93.8 ; Irritable bowel syndrome without diarrhea K58.9 ; Symptomatic premature menopause E28.310 ; History of nephrectomy Z90.5 ; Neck pain M54.2 and Arthralgia M25.50 [facility] [address] [place] [address] 06277- 7061 Jan, Depression F32.9 and Generalized anxiety disorder F41.1 [facility] [address] [address] Jan, Halie rash of groin B37.89 ; Antibiotic long-term use Z79.2 and Sinusitis 473.9 [facility] [id number] [place] [address] 03976- 4569 16 Oct, 2014 Unspecified breast screening V76.10 [facility] [address] 56124- 8368 June, Sinusitis 473.9 [facility] [id number] [place] [address] 18003- 3435 14 May, 2014 [facility] [id number] [place] [address] 24009- 3771 May, [facility] [id number] [place] [address] 62663- 7478 Apr, [facility] [id number] [place] [address] 38408- 3653 Mar, [facility] [id number] [place] [address] 14509- 3400 Mar, [facility] [id number] [place] [address] 37040- 0423 Mar, [facility] [id number] [place] [address] 76972- 1947 Mar, [facility] [id number] [place] [address] 09567- 0865 Feb, [facility] [id number] [place] [address] 82053- 5770 Feb, [facility] [id number] [place] [address] 29973- 9283 Feb, [facility] [place] [facility] [address] [id number] [place] [address]- 0640 Feb, [facility] [place] [facility] [address] [id number] [place] [address]- 4074 Feb, [facility] [place] [facility] [address] [id number] [place] [address]- 0448 Feb, [facility] [place] [facility] [address] [id number] [place] 2530 Jan, [facility] [place] [facility] [address] [id number] [place] [address]- 8583 Jan, [facility] [place] [facility] [address] [id number] [place] [address]- 1510 Dec, [facility] [place] [facility] [address] [id number] [place] [address]- 1320 Dec, [facility] [place] [facility] [address] [id number] [place] [address]- 2775 Nov, [facility] [place] [facility] [address] [id number] [place] [address]- 0150 Nov, [facility] [place] [facility] [address] [id number] [place] [address]- 3670 Oct, [facility] [place] [facility] [address] [id number] [place] [address]- 2538 Oct, [facility] [place] [facility] [address] [id number] [place] [address]- 8930 24 Oct, 2013 [facility] [place] [facility] [address] [id number] [place] [address]- 3572 24 Oct, 2013 [facility] [place] [facility] [address] [id number] [place] [address]- 1394 Nov, [facility] [place] [facility] [address] [id number] [place] [address]- 6000 30 Nov, 2012 [facility] [place] [facility] [address] [id number] 4573 Sep, [facility] [address] [id number] [address]- 3728 Sep, [facility] [address] [address]- 2534 Sep, [facility] [address] [address]- 8651 Jul, [facility] [address] [address]- 4497 June, [facility] [address] [place] [id number] [place] [address] 978783- 1633 June, [facility] [address], [place] [address]- 8003 May, [facility] [address] [address]- 8402 May, [facility] [address] [place] [id number] [address]- 4562 Apr, IMMUNIZATIONS No Known Immunizations SOCIAL HISTORY Never Assessed REASON FOR VISIT refill request PLAN OF CARE VITAL SIGNS MEDICATIONS Medication Instructions Dosage Frequency Start Date End Date Duration Status Diclofenac Sodium CR 75 mg oral two times per day 1 tablet Active RESULTS No Results PROCEDURES [...] History Stage 4 Bowel Cancer-Dr Urbano Welsh ([place]) Medical History Antibiotic long-term use Medical History Abnormal finding on CT scan Medical History Non-healing skin lesion of nose Surgical History hernia repair, hiatal Surgical History cholecystectomy Surgical History tonsillectomy Surgical History appendectomy Surgical History Kidney surgery, right kidney removed 06/1996 Surgical History Otolaryngologic surgery tubes in ears Surgical History bowel obstruction 08/03/17 Hospitalization History surgical
--- OUTSIDE RECORDS SUMMARY | 2017-11-11 21:06 | XMS REPORT ---
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 17372424 Problem Irritable bowel syndrome without diarrhea K58.9 Active 02281621 Problem Hearing loss, bilateral H91.93 Active 12821545 Problem IBS (irritable bowel syndrome) K58.9 Active 02901458 Problem Generalized anxiety disorder F41.1 Active 580765196 Problem Vitamin D deficiency E55.9 Active 44869035 Problem Osteopenia M85.80 Active 197266025 Problem Symptomatic premature menopause E28.310 Active 679369374 Problem Arthralgia M25.50 Active 43428630 Problem History of nephrectomy Z90.5 Active 723652525 Problem Neck pain M54.2 Active 85205596 ALLERGIES No Information ENCOUNTERS Encounter Location Date Diagnosis [place] [address] [place] [address] 17518- 7438 Oct, [place] [address] [place] [id number] [place] [address] 96418- 8163 Oct, [place] [address] [place] [id number] [place] [address] 44587- 6435 Oct, Major depressive disorder, recurrent, moderate F33.1 and Generalized anxiety disorder F41.1 [facility] [address] [address] [id number] [place] [address] 59695- 9899 Oct, [place] [address] [place] [address] 66934- 2662 Sep, Major depressive disorder, recurrent, moderate F33.1 and Arthralgia M25.50 [place] [address] [place] [id number] [place] [address] 79973- 3916 Sep, Generalized anxiety disorder F41.1 and Chronic use of benzodiazepine for therapeutic purpose Z79.899 [place] [address] 36945- 9908 Aug, Osteopenia M85.80 ; 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 ; Generalized anxiety disorder F41.1 ; Vitamin D deficiency E55.9 and Major depressive disorder, recurrent, moderate F33.1 [place] [address] 00147- 0362 Aug, Generalized anxiety disorder F41.1 [place] [address] 38513- 4578 Jul, Osteopenia M85.80 [place] [address] 72204- 9787 June, Generalized anxiety disorder F41.1 [facility] [address] 91480 -4815 May, Acute nasopharyngitis J00 [facility] [address] 74380 -3836 May, Sore in nose J34.89 [place] [address] [place] [id number] [place] [address] 10016- 7799 Apr, Osteopenia M85.80 and Generalized anxiety disorder F41.1 [place] [address] [place] [id number] [place] [address] 38311- 1272 Feb, [place] [address] 39972- 7473 03 Nov, 2016 Depression F32.9 ; Osteopenia M85.80 ; Generalized anxiety disorder F41.1 ; Irritable bowel syndrome without diarrhea K58.9 ; Vitamin D deficiency E55.9 ; Arthralgia M25.50 ; 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 ; General medical exam Z00.00 and Long-term use of high-risk medication Z79.899 [place] [address] [place] [id number] [place] [address] 84996- 9272 Sep, Depression F32.9 and Osteopenia M85.80 [place] [address] 82623- 2459 Aug, Depression F32.9 [place] [address] 57166- 5472 June, Depression F32.9 [place] [address] 59302- 7985 May, Depression F32.9 [place] [address] 45536- 9736 Mar, Depression F32.9 [place] [address] 27946- 4991 Mar, Depression F32.9 ; 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 ; Irritable bowel syndrome without diarrhea K58.9 ; Symptomatic premature menopause E28.310 ; History of nephrectomy Z90.5 ; Neck pain M54.2 ; Non-healing skin lesion of nose L98.9 and Vitamin D deficiency E55.9 [place] [address] [place] [id number] [place] [address] 11139- 9864 Feb, [place] [address] 88786- 9444 Jan, [place] [address] 76679- 6926 Dec, Hearing loss, bilateral H91.93 [place] [address] 72330- 6970 Nov, [place] [address] 12199- 9146 Nov, [place] [address] 89180- 4545 Nov, [place] [address] [place] [id number] [place] [address] 58142- 2628 Oct, Depression F32.9 ; 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 ; Irritable bowel syndrome without diarrhea K58.9 ; Symptomatic premature menopause E28.310 ; History of nephrectomy Z90.5 and Neck pain M54.2 [place] [address] 74254- 6666 Sep, [place] [address] 24933- 3390 Sep, Depression F32.9 ; 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 ; Abnormal finding on CT scan R93.8 ; Irritable bowel syndrome without diarrhea K58.9 ; Symptomatic premature menopause E28.310 ; History of nephrectomy Z90.5 ; Neck pain M54.2 ; Arthralgia M25.50 ; Osteopenia M85.80 and Screening breast examination Z12.39 [place] [address] [place] [id number] [place] [address] 28238- 1234 Sep, [place] [address] 63923- 0899 June, [place] [address] 43791- 7923 Mar, Osteopenia M85.80 [place] [address] [place] [id number] [place] [address] 85493- 3006 Feb, Depression F32.9 ; 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 ; Abnormal finding on CT scan R93.8 ; Irritable bowel syndrome without diarrhea K58.9 ; Symptomatic premature menopause E28.310 ; History of nephrectomy Z90.5 ; Neck pain M54.2 and Arthralgia M25.50 [place] [address] [place] [id number] [place] [address] 72842- 9793 Feb, [place] [address] [place] [id number] [place] [address] 49778- 6939 Feb, [place] [address] [place] [address] [address]- 1787 Jan, Depression F32.9 ; 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 ; Abnormal finding on CT scan R93.8 ; Irritable bowel syndrome without diarrhea K58.9 ; Symptomatic premature menopause E28.310 ; History of nephrectomy Z90.5 ; Neck pain M54.2 and Arthralgia M25.50 [facility] [id number] [place] [address] 48012- 9952 Jan, Depression F32.9 and Generalized anxiety disorder F41.1 [facility] [id number] [place] [address] 39633 -5793 Jan, Halie rash of groin B37.89 ; Antibiotic long-term use Z79.2 and Sinusitis 473.9 [facility] [address] [id number] [place] [address] 01047- 5404 Oct, Unspecified breast screening V76.10 [facility] [address] [place] [id number] [place] [address] 25939- 3307 June, Sinusitis 473.9 [facility] [address] [place] [id number] [place] [address] 43432- 9249 14 May, 2014 [facility] [address] [place] [id number] [place] [address] 79585- 6925 May, [facility] [address] [place] [address] [id number] [place] [address] 38366- 0446 Apr, [facility] [id number] [place] [address] 35845- 2506 Mar, [facility] [address] [id number] [place] [address] 12993- 6236 Mar, [facility] [address] [id number] [place] [address] 36763- 1792 Mar, [facility] [address] [address] [id number] [place] [address] 25052- 3619 Mar, [facility] [place] [facility] [address] [id number] [place] [address]- 7924 Feb, [facility] [place] [facility] [address] [id number] [place] [address]- 2577 Feb, [facility] [place] [facility] [address] [id number] [place] [address]- 5938 Feb, [facility] [place] [facility] [address] [id number] [place] [address]- 6534 Feb, [facility] [place] [facility] [address] [id number] [place] [address]- 7366 Feb, [facility] [place] [facility] [address] [id number] [place] [address]- 1278 Feb, [facility] [place] [facility] [address] [id number] [place] [address]- 8793 Jan, [facility] [place] [facility] [address] [id number] [place] [address]- 2693 Jan, [facility] [place] [facility] [address] [id number] [place] [address]- 1488 Dec, [facility] [place] [facility] [address] [id number] [place] [address]- 3057 Dec, [facility] [place] [facility] [address] [id number] [place] [address]- 6421 Nov, [facility] [place] [facility] [address] [id number] [place] [address]- 2042 Nov, [facility] [place] [facility] [address] [id number] [place] [address]- 9435 Oct, [facility] [place] [facility] [address] [id number] [place] [address]- 8153 Oct, [facility] [place] [facility] [address] [id number] [place] [address]- 7931 24 Oct, 2013 [facility] [place] [facility] [address] [id number] [address]- 1826 Oct, [facility] [id number] [address]- 0182 Nov, [facility] [address] [address]- 5376 Nov, [facility] [address] [address]- 5043 Sep, [facility] [address] [address]- 4177 Sep, [facility] [address] [address]- 8749 Sep, [facility] [address] [place] [address] 78698- 0140 Jul, [facility] [address] [address]- 5296 June, [facility] [address] [address]- 2887 June, [facility] [address] [address]- 3198 May, [facility] [address] [address]- 1031 May, [facility] [id number] [address]- 2712 Apr, IMMUNIZATIONS No Known Immunizations SOCIAL HISTORY Never Assessed REASON FOR VISIT referral PLAN OF CARE VITAL SIGNS MEDICATIONS Unknown [...] History Stage 4 Bowel Cancer-Dr Urbano Welsh ([place]) Medical History Antibiotic long-term use Medical History Abnormal finding on CT scan Medical History Non-healing skin lesion of nose Surgical History hernia repair, hiatal Surgical History cholecystectomy Surgical History tonsillectomy Surgical History appendectomy Surgical History Kidney surgery, right kidney removed 06/1996 Surgical History Otolaryngologic surgery tubes in ears Surgical History bowel obstruction 08/03/17 Hospitalization History surgical Hospitalization History hospital stay for stomach issues. 10/12/17-10/16/17
--- OUTSIDE RECORDS SUMMARY | 2017-11-11 21:06 | XMS REPORT ---
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 26796274 Problem Irritable bowel syndrome without diarrhea K58.9 Active 63259492 Problem Hearing loss, bilateral H91.93 Active 99794934 Problem IBS (irritable bowel syndrome) K58.9 Active 40086378 Problem Generalized anxiety disorder F41.1 Active 995304238 Problem Vitamin D deficiency E55.9 Active 51168587 Problem Osteopenia M85.80 Active 191751536 Problem Symptomatic premature menopause E28.310 Active 522077432 Problem Arthralgia M25.50 Active 96632146 Problem History of nephrectomy Z90.5 Active 663945983 Problem Neck pain M54.2 Active 44249913 ALLERGIES No Information ENCOUNTERS Encounter Location Date Diagnosis [place] [id number] [place] [address] 47238- 5288 Nov, Osteopenia M85.80 [facility] [address] [place] [id number] [place] [address] 62887- 8958 Oct, [facility] [id number] [place] [address] 91653- 7370 Oct, [facility] [id number] [place] [address] 77999- 7296 Oct, Major depressive disorder, recurrent, moderate F33.1 and Generalized anxiety disorder F41.1 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 ; Generalized anxiety disorder F41.1 ; Vitamin D deficiency E55.9 and Major depressive disorder, recurrent, moderate F33.1 [place] [address] 16150- 4527 Aug, Generalized anxiety disorder F41.1 [place] [address] 51611- 2180 Jul, Osteopenia M85.80 [place] [address] 53920- 7827 June, Generalized anxiety disorder F41.1 [facility] [place] [address] 92248 -2172 May, Acute nasopharyngitis J00 [facility] [place] [address] 48436 -7443 May, Sore in nose J34.89 [place] [address] [place] [id number] [place] [address] 80975- 5123 Apr, Osteopenia M85.80 and Generalized anxiety disorder F41.1 [place] [address] 90653- 6933 Feb, [place] [address] 05930- 5336 Nov, Depression F32.9 ; Osteopenia M85.80 ; Generalized anxiety disorder F41.1 ; Irritable bowel syndrome without diarrhea K58.9 ; Vitamin D deficiency E55.9 ; Arthralgia M25.50 ; 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9 ; 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 ; Irritable bowel syndrome without diarrhea K58.9 ; Symptomatic premature menopause E28.310 ; History of nephrectomy Z90.5 ; Neck pain M54.2 ; Non-healing skin lesion of nose L98.9 and Vitamin D deficiency E55.9 [place] [address] [place] [id number] [place] [address] 16439- 6860 Feb, [place] [address] [place] [id number] [place] [address] 82789- 5887 Jan, [place] [address] 36977- 5058 Dec, Hearing loss, bilateral H91.93 [place] [address] [place] [id number] [place] [address] 61215- 1857 Nov, [place] [address] [place] [address]- 0772 Nov, [place] [address] [place] [id number] [place] [address] 88525- 2410 Oct, Depression F32.9 ; 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 ; Irritable bowel syndrome without diarrhea K58.9 ; Symptomatic premature menopause E28.310 ; History of nephrectomy Z90.5 and Neck pain M54.2 [place] [address] 00220- 4935 Sep, [place] [address] [place] [id number] [place] [address] 96138- 2292 Sep, Depression F32.9 ; 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 ; Abnormal finding on CT scan R93.8 ; Irritable bowel syndrome without diarrhea K58.9 ; Symptomatic premature menopause E28.310 ; History of nephrectomy Z90.5 ; Neck pain M54.2 ; Arthralgia M25.50 ; Osteopenia M85.80 and Screening breast examination Z12.39 [place] [address] [place] [id number] [place] [address] 96236- 9264 Sep, [place] [address] 35437- 3292 June, [place] [address] [place] [id number] [place] [address] 72990- 5839 Mar, Osteopenia M85.80 [place] [address] [place] [id number] [place] [address] 86203- 1112 Feb, Depression F32.9 ; 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 [address] [id number] [place] [address] 06718- 6296 Jan, Depression F32.9 and Generalized anxiety disorder F41.1 [facility] [address] [place] [id number] [place] [address] 56492 -7483 Jan, Halie rash of groin B37.89 ; Antibiotic long-term use Z79.[address] [facility] [address] [place] [id number] [place] [address] 55144- 2636 Oct, Unspecified breast screening V76.10 [facility] [address] [place] [id number] [place] [address] 14813- 2066 June, Sinusitis 473.9 [place] [address] [place] [id number] [place] [address] 21850- 6799 May, [facility] [address] [place] [id number] [place] [address] 26682- 2242 May, [facility] [address] [place] [id number] [place] [address] 60217- 1196 Apr, [facility] [address] [place] [id number] [place] [address] 25431- 8606 Mar, [facility] [address] [place] [id number] [place] [address] 214807- 2026 Mar, [facility] [address] [place] [id number] [place] [address] 026525- 4586 Mar, [facility] [address] [id number] [place] [address] 823185- 9916 Mar, [facility] [place] [facility] [address] [id number] [place] [address]- 4616 Feb, [facility] [place] [facility] [address] [id number] [place] [address]- 6618 Feb, [facility] [place] [facility] [address] [id number] [place] [address]- 8884 Feb, [facility] [place] [facility] [address] [id number] [place] [address]- 8786 Feb, [facility] [place] [facility] [address] [id number] [place] [address]- 5600 Feb, [facility] [place] [facility] [address] [id number] [place] [address]- 5191 Feb, [facility] [place] [facility] [address] [id number] [place] [address]- 8770 Jan, [facility] [place] [facility] [address] [id number] [place] [address]- 4268 Jan, [facility] [place] [facility] [address] [id number] [place] [address]- 6573 Dec, [facility] [place] [facility] [address] [id number] [place] [address]- 8586 Dec, [facility] [place] [facility] [address] [id number] [place] [address]- 6641 Nov, [facility] [place] [facility] [address] [id number] [place] [address]- 4747 Nov, [facility] [place] [facility] [address] [id number] [place] [address]- 7997 Oct, [facility] [place] [facility] [address] [id number] [place] [address]- 9540 Oct, [facility] [place] [facility] [address] [id number] [place] [address]- 4155 Oct, [facility] [place] [facility] [id number] [address] 8880 Oct, [facility] [address] [address]12 Nov, [facility] [address] [address]30 Nov, [facility] [address] [address]- 0766 Sep, [facility] [address] [id number] [place] [address] 71002- 6644 Sep, [facility] [address] [id number] [place] [address] 59808- 7185 Sep, [facility] [address] [id number] [place] [address] 61801- 8587 Jul, [facility] [address] [id number] [place] [address] 397428- 0389 June, [facility] [address] [address] 8516 June, [facility] [address]90 May, [facility] [address], [place] [address]- 6485 May, [facility] [address] [place] [address]- 2283 Apr, IMMUNIZATIONS No Known Immunizations SOCIAL HISTORY Never Assessed REASON FOR VISIT No answer PLAN OF CARE VITAL SIGNS MEDICATIONS Unknown [...] History Stage 4 Bowel Cancer-Dr Urbano Welsh ([place]) Medical History Antibiotic long-term use Medical History [...]
--- OUTSIDE RECORDS SUMMARY | 2017-11-11 21:06 | XMS REPORT ---
Author Author SUMMER HUNG [facility] Address [address] [place] [address] Care Team Providers Care Air Chief Marshal Name Role Phone SUMMER HUNG Unavailable PROBLEMS ALLERGIES ENCOUNTERS IMMUNIZATIONS No Known Immunizations SOCIAL HISTORY No smoking Hx information available REASON FOR VISIT PLAN OF CARE VITAL SIGNS MEDICATIONS RESULTS No Results PROCEDURES No Known procedures INSTRUCTIONS MEDICATIONS ADMINISTERED No Known Medications MEDICAL (GENERAL) HISTORY
--- OUTSIDE RECORDS SUMMARY | 2017-11-11 21:07 | XMS REPORT ---
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 49978191 Problem Irritable bowel syndrome without diarrhea K58.9 Active 20934132 Problem Hearing loss, bilateral H91.93 Active 29460097 Problem IBS (irritable bowel syndrome) K58.9 Active 22076321 Problem Generalized anxiety disorder F41.1 Active 262316305 Problem Vitamin D deficiency E55.9 Active 99076268 Problem Osteopenia M85.80 Active 842746992 Problem Symptomatic premature menopause E28.310 Active 038770915 Problem Arthralgia M25.50 Active 83496442 Problem History of nephrectomy Z90.5 Active 192030935 Problem Neck pain M54.2 Active 59252475 ALLERGIES Substance Reaction Event Type Date Status Sulfamethoxazole-Trimethoprim Unknown Drug Allergy Aug, Active Percocet Unknown Drug Allergy Aug, Active ENCOUNTERS Encounter Location Date Diagnosis [facility] [address] [id number] [address]- 8362 Oct, [facility] [address] [place] [address] 86652- 5237 Sep, Major depressive disorder, recurrent, moderate F33.1 and Arthralgia M25.50 [facility] [address] [place] [id number] [place] [address] 11607- 8284 Sep, Generalized anxiety disorder F41.1 and Chronic use of benzodiazepine for therapeutic purpose Z79.899 [place] [address] [place] [id number] [place] [address] 67408- 6791 Aug, Osteopenia M85.80 ; 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 ; Generalized anxiety disorder F41.1 ; Vitamin D deficiency E55.9 and Major depressive disorder, recurrent, moderate F33.1 [place] [address] [place] [id number] [place] [address] 57651- 9786 Aug, Generalized anxiety disorder F41.1 [place] [address] 81047- 3341 Jul, Osteopenia M85.80 [place] [address] 62422- 1377 June, Generalized anxiety disorder F41.1 [facility] [place] [address] 85501 -1581 May, Acute nasopharyngitis J00 [facility] [place] [address] 85777 -0393 May, Sore in nose J34.89 [place] [address] 33123- 3430 Apr, Osteopenia M85.80 and Generalized anxiety disorder F41.1 [place] [address] 40943- 8711 Feb, [place] [address] [place] [id number] [place] [address] 96769- 5320 Nov, Depression F32.9 ; Osteopenia M85.80 ; Generalized anxiety disorder F41.1 ; Irritable bowel syndrome without diarrhea K58.9 ; Vitamin D deficiency E55.9 ; Arthralgia M25.50 ; 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 ; General medical exam Z00.00 and Long-term use of high-risk medication Z79.899 [place] [address] [place] [id number] [place] [address] 88512- 7375 Sep, Depression F32.9 and Osteopenia M85.80 [place] [address] 68252- 9922 Aug, Depression F32.9 [place] [address] [place] [id number] [place] [address] 71011- 3830 June, Depression F32.9 [place] [address] [place] [id number] [place] [address] 35738- 5106 May, Depression F32.9 [place] [address] [place] [id number] [place] [address] 68851- 4922 Mar, Depression F32.9 [place] [address] [place] [id number] [place] [address] 07052- 8420 Mar, Depression F32.9 ; 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 ; Irritable bowel syndrome without diarrhea K58.9 ; Symptomatic premature menopause E28.310 ; History of nephrectomy Z90.5 ; Neck pain M54.2 ; Non-healing skin lesion of nose L98.9 and Vitamin D deficiency E55.9 [place] [address] [place] [id number] [place] [address] 68328- 8468 Feb, [place] [address] [place] [id number] [place] [address] 22122- 8144 Jan, [place] [address] [place] [id number] [place] [address] 91853- 3167 Dec, Hearing loss, bilateral H91.93 [place] [address] [place] [id number] [place] [address] 26768- 3690 Nov, [place] [address] [place] [id number] [place] [address] [id number]- 0367 Nov, [place] [address] [place] [id number] [place] [address] 69724- 4897 Nov, [place] [address] [place] [id number] [place] [address] 94758- 6956 Oct, Depression F32.9 ; 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 ; Irritable bowel syndrome without diarrhea K58.9 ; Symptomatic premature menopause E28.310 ; History of nephrectomy Z90.5 and Neck pain M54.2 [place] [address] [place] [id number] [place] [address] 11303- 9326 Sep, [place] [address] 33670- 3414 Sep, Depression F32.9 ; 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 ; Abnormal finding on CT scan R93.8 ; Irritable bowel syndrome without diarrhea K58.9 ; Symptomatic premature menopause E28.310 ; History of nephrectomy Z90.5 ; Neck pain M54.2 ; Arthralgia M25.50 ; Osteopenia M85.80 and Screening breast examination Z12.39 [place] [address] [place] [id number] [place] [address] 08871- 5968 Sep, [place] [address] [place] [id number] [place] [address] 10110- 1970 June, [place] [address] [place] [id number] [place] [address] 78740- 6099 Mar, Osteopenia M85.80 [place] [address] [place] [id number] [place] [address] 48218- 6181 Feb, Depression F32.9 ; 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 ; Abnormal finding on CT scan R93.8 ; Irritable bowel syndrome without diarrhea K58.9 ; Symptomatic premature menopause E28.310 ; History of nephrectomy Z90.5 ; Neck pain M54.2 and Arthralgia M25.50 [place] [address] [place] [id number] [place] [address] 16250- 0563 Feb, [place] [address] [place] [id number] [place] [address] 87730- 0596 Feb, [place] [id number] [place] [address] 40671- 5260 Jan, Depression F32.9 ; 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 ; Abnormal finding on CT scan R93.8 ; Irritable bowel syndrome without diarrhea K58.9 ; Symptomatic premature menopause E28.310 ; History of nephrectomy Z90.5 ; Neck pain M54.2 and Arthralgia M25.50 [facility] [address] [address]- 3583 Jan, Depression F32.9 and Generalized anxiety disorder F41.1 [facility] [address] [address]01 09 Jan, 2015 Halie rash of groin B37.89 ; Antibiotic long-term use Z79.2 and Sinusitis 473.9 [facility] [address] [place] [address] 73398- 9472 16 Oct, 2014 Unspecified breast screening V76.10 [facility] [address] [place] [id number] [place] [address] 48336- 4111 June, Sinusitis 473.9 [facility] [address] [place] [id number] [place] [address] 40758- 1022 14 May, 2014 [facility] [address] [place] [id number] [place] [address] 08364- 9868 May, [facility] [address] [place] [address] 46431- 7264 Apr, [facility] [address] [id number] [place] [address] 41678- 6245 Mar, [facility] [address] [address]- 7237 Mar, [facility] [address] [place] [id number] [place] [address] 98444- 3586 Mar, [facility] [address] [place] [address] 65574- 4931 Mar, [facility] [address] [place] [id number] [place] [address] 54954- 6706 Feb, [facility] [address] 7622 Feb, [facility] [address] [id number] [place] [address] 88042- 9568 Feb, [facility] [place] [facility] [address] [id number] [place] [address]- 1481 Feb, [facility] [place] [facility] [address] [id number] [place] [address]- 7598 Feb, [facility] [place] [facility] [address] [id number] [place] [address]- 0752 Feb, [facility] [place] [facility] [address] [id number] [place] [address]- 5537 Jan, [facility] [place] [facility] [address] [id number] [place] [address]- 2447 Jan, [facility] [place] [facility] [address] [id number] [place] [address]- 3081 Dec, [facility] [place] [facility] [address] [id number] [place] [address]- 9189 Dec, [facility] [place] [facility] [address] [id number] [place] [address]- 4358 Nov, [facility] [place] [facility] [address] [id number] [place] [address]- 8874 Nov, [facility] [place] [facility] [address] [id number] [place] [address]- 6849 Oct, [facility] [place] [facility] [address] [id number] [address]- 4031 2013 [facility] [place] [facility] [address] [id number] [address]- 6997 24 Oct, 2013 [facility] [place] [facility] [address] [id number] [place] [address]- 4337 24 Oct, 2013 [facility] [place] [facility] [address] [id number] [address]- 2978 30 Nov, 2012 [facility] [place] [facility] [address] [id number] [place] [address]- 9330 30 Nov, 2012 [facility] [place] [facility] [id number] [address]- 5835 Sep, [facility] [address] [address]- 1780 Sep, [facility] [address] 0395 Sep, [facility] [address] [address]- 3515 Jul, [facility] [address] [address]- 1929 June, [facility] [address] [address]- 4571 June, [facility] [address] [address]- 9728 May, [facility] [address] [address]- 0577 May, [facility] [id number] [address]- 9210 Apr, IMMUNIZATIONS No Known Immunizations SOCIAL HISTORY Never Assessed REASON FOR VISIT Transition of Care-awoods PLAN OF CARE Activity Details Follow Up 3 months or as indicated by lab Reason: VITAL SIGNS Height 55 in 2017-08-31 Weight 124.1 lbs 2017-08-31 Temperature 98.8 degrees Fahrenheit 2017-08-31 Heart Rate 73 bpm 2017-08-31 Respiratory Rate 20 2017-08-31 BMI 28.84 kg/m2 2017-08-31 Blood pressure systolic 122 mmHg 2017-08-31 Blood pressure diastolic 68 mmHg 2017-08-31 MEDICATIONS Medication Instructions Dosage Frequency Start Date End Date Duration Status Clonazepam 1 MG Orally Once a day at hs prn 1 tablet Active Stool Softener 100 MG Orally Once a day 1 capsule as needed 24h Active Vitamin D 2000 UNIT Orally Once a day 2 tablet 24h Active Diclofenac Sodium CR 75 mg oral two times per day 1 tablet Active Fosamax 70 MG Orally weekly 1 tablet 28 Active Duloxetine HCl 30 MG Orally daily 1 capsule 24h Active RESULTS No Results PROCEDURES No [...] Stage 4 Bowel Cancer-Dr Bauman, Dr Clement ([place]) Medical History Antibiotic long-term use Medical History Abnormal finding on CT scan Medical History Non-healing skin lesion of nose Surgical History hernia repair, hiatal Surgical History cholecystectomy Surgical History tonsillectomy Surgical History appendectomy Surgical History Kidney surgery, right kidney removed 06/1996 Surgical History Otolaryngologic surgery tubes in ears Surgical History bowel obstruction 08/03/17 Hospitalization History surgical
--- OUTSIDE RECORDS SUMMARY | 2017-11-11 21:07 | XMS REPORT ---
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 11591364 Problem Irritable bowel syndrome without diarrhea K58.9 Active 27954044 Problem Hearing loss, bilateral H91.93 Active 12957674 Problem IBS (irritable bowel syndrome) K58.9 Active 55495660 Problem Generalized anxiety disorder F41.1 Active 879540180 Problem Vitamin D deficiency E55.9 Active 40231010 Problem Osteopenia M85.80 Active 753950826 Problem Symptomatic premature menopause E28.310 Active 385327747 Problem Arthralgia M25.50 Active 08717297 Problem History of nephrectomy Z90.5 Active 669875282 Problem Neck pain M54.2 Active 63194212 ALLERGIES No Information ENCOUNTERS Encounter Location Date Diagnosis [place] [id number] [place] [address] 48657- 7940 Oct, [place] [id number] [place] [address] 65252- 4742 Sep, Major depressive disorder, recurrent, moderate F33.1 and Arthralgia M25.50 [facility] [place] [id number] [place] [address] 69168- 0295 Sep, Generalized anxiety disorder F41.1 and Chronic use of benzodiazepine for therapeutic purpose Z79.899 [place] [id number] [place] [address] 60537- 8108 Aug, Osteopenia M85.80 ; 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 ; Generalized anxiety disorder F41.1 ; Vitamin D deficiency E55.9 and Major depressive disorder, recurrent, moderate F33.1 [place] [id number] [place] [address] 15106- 1224 Aug, Generalized anxiety disorder F41.1 [place] [id number] [place] [address] 53947- 6046 Jul, Osteopenia M85.80 [place] [address] 85794- 4812 June, Generalized anxiety disorder F41.1 [facility] [id number] [place] [address] 20888 -1376 May, Acute nasopharyngitis J00 [facility] [id number] [place] [address] 77637 -7742 May, Sore in nose J34.89 [place] [address] 24334- 9754 Apr, Osteopenia M85.80 and Generalized anxiety disorder F41.1 [place] [id number] [place] [address] 07039- 0533 Feb, [place] [id number] [place] [address] 16429- 2228 Nov, Depression F32.9 ; Osteopenia M85.80 ; Generalized anxiety disorder F41.1 ; Irritable bowel syndrome without diarrhea K58.9 ; Vitamin D deficiency E55.9 ; Arthralgia M25.50 ; 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 ; General medical exam Z00.00 and Long-term use of high-risk medication Z79.899 [place] [id number] [place] [address] 67389- 4328 Sep, Depression F32.9 and Osteopenia M85.80 [place] [id number] [place] [address] 31592- 6008 Aug, Depression F32.9 [place] [address] [place] [address]- 8493 June, Depression F32.9 [place] [id number] [place] [address] 40527- 0106 May, Depression F32.9 [facility] [place] [id number] [place] [address] 36843 2546 Mar, Depression F32.9 [place] [id number] [place] [address] 37017- 0826 Mar, Depression F32.9 ; 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 ; Irritable bowel syndrome without diarrhea K58.9 ; Symptomatic premature menopause E28.310 ; History of nephrectomy Z90.5 ; Neck pain M54.2 ; Non-healing skin lesion of nose L98.9 and Vitamin D deficiency E55.9 [place] [id number] [place] [address] 56441- 2046 Feb, [place] [id number] [place] [address] 04468- 5607 Jan, [place] [id number] [place] [address] 35930- 3095 Dec, Hearing loss, bilateral H91.93 [place] [id number] [place] [address] 61173- 9295 Nov, [place] [id number] [place] [address] 94405- 8900 Nov, [place] [id number] [place] [address] 56916- 1457 Nov, [place] [id number] [place] [address] 285323- 2387 Oct, Depression F32.9 ; 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80 and Screening breast examination Z12.39 [place] [id number] [place] [address] 81576- 9662 Sep, [place] [address] 84359- 0197 June, [place] [id number] [place] [address] 85345- 3855 Mar, Osteopenia M85.80 [place] [address] 18494- 3462 Feb, Depression F32.9 ; 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 ; Abnormal finding on CT scan R93.8 ; Irritable bowel syndrome without diarrhea K58.9 ; Symptomatic premature menopause E28.310 ; History of nephrectomy Z90.5 ; Neck pain M54.2 and Arthralgia M25.50 [place] [id number] [place] [address] 17796- 5007 Feb, [place] [id number] [place] [address] 73902- 8889 Feb, [place] [id number] [place] [address] 36519- 0750 Jan, Depression F32.9 ; 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 ; Abnormal finding on CT scan R93.8 ; Irritable bowel syndrome without diarrhea K58.9 ; Symptomatic premature menopause E28.310 ; History of nephrectomy Z90.5 ; Neck pain M54.2 and Arthralgia M25.50 [place] [id number] [place] [address] 16280- 2892 Jan, Depression F32.9 and Generalized anxiety disorder F41.1 [facility] [id number] [place] [address] 76284 -4292 Jan, Halie rash of groin B37.89 ; Antibiotic long-term use Z79.2 and Sinusitis 473.9 [facility] [place] [id number] [place] [address] 92246- 8481 Oct, Unspecified breast screening V76.10 [facility] [place] [id number] [place] [address] 66034- 5270 June, Sinusitis 473.9 [facility] [place] [id number] [place] [address] 14777- 5549 May, [facility] [place] [id number] [place] [address] 62578- 7295 May, [facility] [place] [id number] [place] [address] 48343- 2881 Apr, [facility] [place] [id number] [place] [address] 36565- 0005 Mar, [facility] [place] [id number] [place] [address] 51265- 5395 Mar, [facility] [place] [id number] [place] [address] 79010- 5557 Mar, [facility] [place] [id number] [place] [address] 55085- 7813 Mar, [facility] [place] [id number] [place] [address] 52936- 3986 Feb, [facility] [place] [id number] [place] [address] 63740- 6361 Feb, [facility] [place] [id number] [place] [address] 14098- 5170 Feb, [facility] [place] [id number] [place] [address] 21765- 1889 Feb, [facility] [place] [facility] [address] [id number] [place] [address]- 6790 Feb, [facility] [place] [facility] [address] [id number] [place] [address]- 1508 Feb, [facility] [place] [facility] [address] [id number] [place] [address]- 9906 Jan, [facility] [place] [facility] [address] [id number] [place] [address]- 6656 Jan, [facility] [place] [facility] [address] [id number] [place] [address]- 3614 Dec, [facility] [place] [facility] [address] [id number] [place] [address]- 5565 Dec, [facility] [place] [facility] [address] [id number] [place] [address]- 5196 Nov, [facility] [place] [facility] [address] [id number] [place] [address]- 8274 Nov, [facility] [place] [facility] [address] [id number] [place] [address]- 8502 Oct, [facility] [place] [facility] [address] [id number] [place] [address]- 0836 Oct, [facility] [place] [facility] [address] [id number] [place] [address]- 4215 Oct, [facility] [place] [facility] [address] [id number] [place] [address]- 2359 Oct, [facility] [place] [facility] [address] [id number] [place] [address]- 3421 Nov, [facility] [place] [facility] [address] [id number] [place] [address]- 2396 Nov, [facility] [place] [facility] [address] [id number] [place] [address]- 9552 Sep, [facility] [place] [facility] [id number] [place] [address]- 4726 Sep, [facility] [place] [id number] [address]- 3636 Sep, [facility] [place] [address] [place] [address]- 5876 Jul, [facility] [place] [address] [place] [address]- 8092 June, [facility] [place] [address] [place] [address]- 6118 June, [facility] [place] [address] [place] [address]- 0841 May, [facility] [place] [address] [place] [address]- 4949 May, [facility] [place] [address] [place] [address]- 3523 Apr, IMMUNIZATIONS No Known Immunizations SOCIAL HISTORY [...] Stage 4 Bowel Cancer-Dr Bauman, Dr Clement ([place]) Medical History Antibiotic long-term use Medical History Abnormal finding on CT scan Medical History Non-healing skin lesion of nose Surgical History hernia repair, hiatal Surgical History cholecystectomy Surgical History tonsillectomy Surgical History appendectomy Surgical History Kidney surgery, right kidney removed 06/1996 Surgical History Otolaryngologic surgery tubes in ears Surgical History bowel obstruction 08/03/17 Hospitalization History surgical
--- OUTSIDE RECORDS SUMMARY | 2017-11-11 21:12 | XMS REPORT | Continuity of Care Document ---
Author Author [facility] [place] [facility] Address Unknown Phone Unavailable Allergies Active Description Code Type Severity Reaction Onset Reported/Identified Relationship to Patient Clinical Status Yes acetaminophen [id number] Drug Allergy Mild N/V 11/05/2012 Yes oxycodone HCl [id number] Drug Allergy Mild N/V 11/05/2012 Yes Sulfa (Sulfonamide Antibiotics) [id number] Drug Allergy Mild RASH 2012 Medications There [...] ABDOMINAL PAIN, LEFT LOWER QUADRANT 10/30/2013 ELLIE BUFFET WAITER/WAITRESS, CANDELARIO R 789.00 ABDOMINAL PAIN UNSPECIFIED SITE 10/30/2013 ELLIE BUFFET WAITER/WAITRESS, CANDELARIO R 789.00 ABDOMINAL PAIN UNSPECIFIED SITE 10/30/2013 ELLIE CALDWELL, CANDELARIO R 789.00 ABDOMINAL PAIN UNSPECIFIED SITE 10/30/2013 LIBERTAD OROSCO DO K 789.00 ABDOMINAL PAIN UNSPECIFIED SITE 12/05/2013 ELLIE CALDWELL, CANDELARIO R 564.1 IRRITABLE BOWEL SYNDROME 12/05/2013 ARTHUR ARGUETA APRNINA R 564.1 IRRITABLE BOWEL SYNDROME 12/05/2013 LIBERTAD OROSCO DO 564.1 IRRITABLE BOWEL SYNDROME 12/22/2013 STACY CERRATO BUFFET WAITER/WAITRESS Ot 558.9 NONINF GASTROENTERIT NEC 12/22/2013 STACY CERRATO BUFFET WAITER/WAITRESS Ot 789.04 ABDOMINAL PAIN, LEFT LOWER QUADRANT 01/28/2014 OPAL DAVIS MD Ot 455.0 INT HEMORRHOID W/O COMPL 01/28/2014 OPAL DAVIS MD Ot 455.3 EXT HEMORRHOID W/O COMPL 01/28/2014 OPAL DAVIS MD Ot 787.99 OTHER GI SYSTEM SYMPTOMS 03/04/2014 LIBERTAD OROSCO DO V07.4 HORMONE REPLACEMENT THERAPY (POSTMENOPAUSAL) 03/04/2014 LIBERTAD OROSCO DO V72.31 RADIATOR TESTER EXAM, ROUTINE 03/04/2014 LIBERTAD OROSCO DO V72.62 [...] INTEST, PART UNSP, W/O PERF 06/22/2015 GALILEO CEABLLOS MD Ot R10.32 LEFT LOWER QUADRANT PAIN 06/22/2015 TUCKER GRANADOS, GALILEO Velasquez Ot Z90.5 ACQUIRED ABSENCE OF KIDNEY 07/17/2015 GALILEO CEBALLOS MD Ot K57.90 DVRTCLOS OF INTEST, PART UNSP, W/O PERF 07/17/2015 TUCKER GRANADOS, GALILEO Velasquez Ot R10.32 LEFT LOWER QUADRANT PAIN 07/17/2015 TUCKER GRANADOS, GALILEO Velasquez Ot Z90.5 ACQUIRED ABSENCE OF KIDNEY 10/27/2015 LAWANDA SHAVER UNCLAIMED PROPERTY OFFICER Ot Z12.31 ENCNTR SCREEN MAMMOGRAM FOR MALIGNANT NE 11/13/2015 LAWANDA SHAEVR UNCLAIMED PROPERTY OFFICER Ot Z12.31 ENCNTR SCREEN MAMMOGRAM FOR MALIGNANT NE 12/09/2016 OPAL DAVIS MD Ot V72.84 EXAM PRE-OPERATIVE NOS 12/09/2016 OROSCO DO, LIBERTAD K Ot V76.12 OTH SCREEN MAMMO-MALIGN NEOPLASM OF JORDAN 12/09/2016 Ot E28.310 SYMPTOMATIC PREMATURE MENOPAUSE 12/09/2016 Ot M85.80 OTH DISRD OF BONE DENSITY AND STRUCTURE, 12/09/2016 Ot 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, UNSPECIFIED 12/09/2016 MADLLAWANDA Vance UNCLAIMED PROPERTY OFFICER Ot Z12.31 ENCNTR SCREEN MAMMOGRAM FOR MALIGNANT [...] 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, UNSPECIFIED 12/09/2016 MADLTOANLAWANDA Vance UNCLAIMED PROPERTY OFFICER Ot Z12.31 ENCNTR SCREEN MAMMOGRAM FOR MALIGNANT [...] Ot 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, UNSPECIFIED 01/30/2017 ROSAMARIA CAILXTO MD Ot R09.81 NASAL CONGESTION 01/30/2017 ROSAMARIA [...] 08/15/2017 Ot 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, UNSPECIFIED 08/15/2017 MADLAWANDA Woodard UNCLAIMED PROPERTY OFFICER Ot Z12.31 ENCNTR SCREEN MAMMOGRAM FOR MALIGNANT NE 08/16/2017 ISACCCARRIE , NORBERT B Ot C7A.00 MALIGNANT CARCINOID TUMOR OF UNSPECIFIED 08/29/2017 CAROLIN DO, NORBERT B Ot C7A.00 MALIGNANT CARCINOID TUMOR OF UNSPECIFIED 08/30/2017 OPAL DAVIS MD Ot V72.84 EXAM PRE-OPERATIVE NOS 08/30/2017 OROSCO LIBERTAD ARANGO Ot V76.12 OTH SCREEN MAMMO-MALIGN NEOPLASM OF JORDAN 08/30/2017 Ot E28.310 SYMPTOMATIC PREMATURE MENOPAUSE 08/30/2017 Ot M85.80 OTH DISRD OF BONE DENSITY AND STRUCTURE, 08/30/2017 Ot 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, UNSPECIFIED 08/30/2017 LAWANDA SHAVER Ot Z12.31 ENCNTR SCREEN MAMMOGRAM FOR MALIGNANT NE 08/30/2017 ISACCCARRIE KALPANA ARANGOIC B Ot C7A.00 MALIGNANT CARCINOID TUMOR OF UNSPECIFIED 09/28/2017 NYA MENDEZ MD Ot 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 09/28/2017 NYA MENDEZ MD Ot R91.1 SOLITARY PULMONARY NODULE 10/06/2017 NYA MENDEZ MD Ot 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 10/06/2017 NYA MENDEZ MD Ot 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.9 GRANULOMATOUS DISORDER OF THE SKIN, SUBC 10/06/2017 NYA MENDEZ MD Ot 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, UNSPECIFIED 10/16/2017 CAROLIN ARANGO NORBERT B Ot A41.9 SEPSIS, UNSPECIFIED ORGANISM 10/16/2017 CAROLIN ARANGO NORBERT B Ot C79.89 SECONDARY MALIGNANT NEOPLASM OF OTHER SP 10/16/2017 ISACCCARRIE KALPANA ARANGOIC B Ot 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 10/16/2017 KALPANA COE DOIC B Ot D72.829 ELEVATED WHITE BLOOD CELL COUNT, UNSPECI 10/16/2017 CAROLIN ARANGO NORBERT B Ot E55.9 VITAMIN D DEFICIENCY, UNSPECIFIED 10/16/2017 KALPANA COE DOIC B Ot F32.9 MAJOR DEPRESSIVE DISORDER, SINGLE EPISOD 10/16/2017 KALPANA COE DOIC B Ot F41.9 ANXIETY DISORDER, UNSPECIFIED 10/16/2017 CAROLIN ARANGO, NORBERT B Ot H91.93 UNSPECIFIED HEARING LOSS, BILATERAL 10/16/2017 CAROLIN ARANGO, NORBERT B Ot K52.9 NONINFECTIVE GASTROENTERITIS AND COLITIS 10/16/2017 CAROLIN ARANGO, NORBERT B Ot K63.89 OTHER SPECIFIED DISEASES OF INTESTINE 10/16/2017 CAROLIN DO, NORBERT B Ot Q61.3 POLYCYSTIC KIDNEY, UNSPECIFIED 10/16/2017 CAROLIN DO, NORBERT B Ot 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, UNSPECIFIED 10/16/2017 CAROLIN DO, NORBERT B Ot R00.0 TACHYCARDIA, UNSPECIFIED 10/16/2017 DELMAN DO, NORBERT B Ot R74.8 ABNORMAL LEVELS OF OTHER SERUM ENZYMES 10/16/2017 CAROLIN ARANGO, NORBERT B Ot R79.89 OTHER SPECIFIED ABNORMAL FINDINGS OF BLO 10/16/2017 CAROLIN ARANGO, NORBERT B Ot R91.8 OTHER NONSPECIFIC ABNORMAL FINDING OF PAIGE 10/16/2017 CAROLIN ARANGO, NORBERT B Ot Z90.5 ACQUIRED ABSENCE OF KIDNEY 10/17/2017 JOHANNA URMILA ARANGOA K Ot F32.9 MAJOR DEPRESSIVE DISORDER, SINGLE EPISOD 10/17/2017 JOHANNA DO ANNITA K Ot F41.9 ANXIETY DISORDER, UNSPECIFIED 10/17/2017 JOHANNA ARANGO ANNITA K Ot K52.9 NONINFECTIVE GASTROENTERITIS AND COLITIS 10/17/2017 JOHANNA ARANGO ANNITA K Ot 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, UNSPECIFIED 10/17/2017 JOHANNA DO ANNITA K Ot R11.10 VOMITING, UNSPECIFIED 10/17/2017 URMILA SPENCER DOA K Ot Z85.038 PERSONAL HISTORY OF MALIGNANT NEOPLASM O 10/17/2017 URMILA SPENCER DOA K Ot Z87.19 PERSONAL HISTORY OF OTHER DISEASES OF TH 10/17/2017 ANNITA SPENCER DO Ot Z87.442 PERSONAL HISTORY OF URINARY CALCULI 10/17/2017 ANNITA SPENCER DO Ot Z87.448 PERSONAL HISTORY OF OTHER DISEASES OF UR 10/17/2017 ANNITA SPENCER DO Ot Z88.2 ALLERGY STATUS TO SULFONAMIDES STATUS 10/17/2017 ANNITA SPENCER DO Ot Z88.5 ALLERGY STATUS TO NARCOTIC AGENT STATUS 10/17/2017 ANNITA SPENCER DO Ot Z88.8 ALLERGY STATUS TO OTH DRUG/MEDS/BIOL SUB 10/17/2017 JOHANNA ARANGOANNITA Ot Z90.5 ACQUIRED ABSENCE OF KIDNEY 10/17/2017 JOHANNA ARANGOANNITA Ot Z90.89 ACQUIRED ABSENCE OF OTHER ORGANS 10/17/2017 JOHANNA ARANGO ANNITA K Ot Z98.890 OTHER SPECIFIED POSTPROCEDURAL STATES 10/18/2017 ANDREA GRANADOS, NYA Ot 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 10/18/2017 ANDREA GRANADOS, NYA Ot L92.9 GRANULOMATOUS DISORDER OF THE SKIN, SUBC 10/18/2017 ANDREA GRANADOS, NYA Ot 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, UNSPECIFIED 10/19/2017 JOHANNA ANNITA Ot F32.9 MAJOR DEPRESSIVE DISORDER, SINGLE EPISOD 10/19/2017 JOHANNA DOANNITA Ot F41.9 ANXIETY DISORDER, UNSPECIFIED 10/19/2017 JOHANNA DOANNITA Ot K52.9 NONINFECTIVE GASTROENTERITIS AND COLITIS 10/19/2017 JOHANNA ANNITA Ot 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, UNSPECIFIED 10/19/2017 JOHANNA ANNITA Ot R11.10 VOMITING, UNSPECIFIED 10/19/2017 JOHANNA ARANGOURMILAA Iveth Ot Z85.038 PERSONAL HISTORY OF MALIGNANT NEOPLASM O 10/19/2017 JOHANNA DOURMILAA Iveth Ot Z87.19 PERSONAL HISTORY OF OTHER DISEASES OF TH 10/19/2017 JOHANNA ARANGOURMILAA Iveth Ot Z87.442 PERSONAL HISTORY OF URINARY CALCULI 10/19/2017 JOHANNA DOURMILAA Iveth Ot Z87.448 PERSONAL HISTORY OF OTHER DISEASES OF UR 10/19/2017 JOHANNA ARANGOURMILAA Iveth Ot Z88.2 ALLERGY STATUS TO SULFONAMIDES STATUS 10/19/2017 JOHANNA ARANGO ANNITA Iveth Ot Z88.5 ALLERGY STATUS TO NARCOTIC AGENT STATUS 10/19/2017 JOHANNA ARANGO ANNITA Iveth Ot Z88.8 ALLERGY STATUS TO OTH DRUG/MEDS/BIOL SUB 10/19/2017 JOHANNA ARANGO ANNITA Iveth Ot Z90.5 ACQUIRED ABSENCE OF KIDNEY 10/19/2017 JOHANNA URMILAA Iveth Ot Z90.89 ACQUIRED ABSENCE OF OTHER ORGANS 10/19/2017 JOHANNA DOANNITA Ot Z98.890 OTHER SPECIFIED POSTPROCEDURAL STATES Procedures Code Description [place] [address] ROUTINE VENIPUNCTURE 09/21/2012 07700 CBC 09/21/2012 94805 LIPID PANEL 09/21/2012 76611 CMP 09/21/2012 3518884 GFR CALC (RESULT ONLY) 09/21/2012 28965 TSH 09/21/2012 42995 T4 FREE 09/21/2012 [id number] EXCISION OF ILEUM, OPEN APPROACH 08/04/2017 [id number] EXCISION OF CECUM, OPEN APPROACH 08/04/2017 [id number] REPAIR ABDOMINAL WALL, OPEN APPROACH 08/04/2017 Results [...] 01/30/17 17:30 Blood monocytes/100 leukocytes 2 % NR Manual blood segmented neutrophils/100 leukocytes 90 % NR Blood band neutrophils/100 leukocytes 3 % NR Manual blood lymphocytes/100 leukocytes 0 % NR Manual eosinophils/100 leukocytes in nose 0 % NR Manual blood basophils/100 leukocytes 0 % NRG Blood lymphocytes variant/100 leukocytes 5 % NR Blood erythrocyte morphology finding identification NORMAL [facility] Comprehensive metabolic panel - 01/30/17 17:30 [...] NRG Blood erythrocyte morphology finding identification NORMAL NR Comprehensive metabolic panel - 08/03/17 12:40 Serum [...] - 18:11 MRSA SCREEN RESULT MRSA ISOLATED [facility] Complete blood count (CBC) with automated white [...] Urine 5-hydroxyindoleacetate/creatinine mass ratio 756 % 700-1600 Complete blood count (CBC) with automated white blood cell (WBC) differential - 10/12/17 19:16 Blood leukocytes automated count (number/volume) 13.0 10*3/uL 4.3-11.0 Blood erythrocytes automated count (number/volume) 4.37 10*6/uL 4.35-5.85 Venous blood hemoglobin measurement (mass/volume) 13.2 g/dL 11.5-16.0 Blood hematocrit (volume fraction) 38 % 35-52 Automated erythrocyte mean corpuscular volume 86 [foz_us] 80-99 Automated erythrocyte mean corpuscular hemoglobin (mass per erythrocyte) 30 pg 25-34 Automated erythrocyte mean corpuscular hemoglobin concentration measurement ( mass/volume) 35 g/dL 32-36 Automated erythrocyte distribution width ratio 13.1 % 10.0-14.5 Automated blood platelet count (count/volume) 222 10*3/uL 130-400 Automated blood platelet mean volume measurement 9.5 [foz_us] 7.4-10.4 Automated blood neutrophils/100 leukocytes 90 % 42-75 Automated blood lymphocytes/100 leukocytes 5 % 12-44 Blood monocytes/100 leukocytes 5 % 0-12 Automated blood eosinophils/100 leukocytes 0 % 0-10 Automated blood basophils/100 leukocytes 0 % 0-10 Blood neutrophils automated count (number/volume) 11.7 10*3 1.8-7.8 Blood lymphocytes automated count (number/volume) 0.7 10*3 1.0-4.0 Blood monocytes automated count (number/volume) 0.6 10*3 0.0-1.0 Automated eosinophil count 0.0 10*3/uL 0.0-0.3 Automated blood basophil count (count/volume) 0.0 10*3/uL 0.0-0.1 Blood lactic acid measurement (moles/volume) - 10/12/17 19:16 Blood lactic acid measurement (moles/volume) 2.33 mmol/L 0.50-2.00 Comprehensive metabolic panel - 10/12/17 19:16 Serum or plasma sodium measurement (moles/volume) 139 mmol/L 135-145 Serum or plasma potassium measurement (moles/volume) 4.1 mmol/L 3.6-5.0 Serum or plasma chloride measurement (moles/volume) 105 mmol/L 98-107 Carbon dioxide 22 mmol/L 21-32 Serum or plasma anion gap determination (moles/volume) 12 mmol/L 5-14 Serum or plasma urea nitrogen measurement (mass/volume) 18 mg/dL 7-18 Serum or plasma creatinine measurement (mass/volume) 0.85 mg/dL 0.60-1.30 Serum or plasma urea nitrogen/creatinine mass ratio 21 NRG Serum or plasma creatinine measurement with calculation of estimated glomerular filtration rate > NRG Serum or plasma glucose measurement (mass/volume) 150 mg/dL 70-105 Serum or plasma calcium measurement (mass/volume) 9.6 mg/dL 8.5-10.1 Serum or plasma total bilirubin measurement (mass/volume) 0.6 mg/dL 0.1-1.0 Serum or plasma alkaline phosphatase measurement (enzymatic activity/volume) 156 U/L 40-136 Serum or plasma aspartate aminotransferase measurement (enzymatic activity/ volume) 36 U/L 5-34 Serum or plasma alanine aminotransferase measurement (enzymatic activity/volume ) 84 U/L 0-55 Serum or plasma protein measurement (mass/volume) 6.5 g/dL 6.4-8.2 Serum or plasma albumin measurement (mass/volume) 4.2 g/dL 3.2-4.5 CALCIUM CORRECTED 9.4 mg/dL 8.5-10.1 Lipase - 10/12/17 19:16 Lipase 35 U/L 8-78 PT panel in platelet poor plasma by coagulation assay - 10/12/17 19:16 Prothrombin time (PT) in platelet poor plasma by coagulation assay 13.2 s 12.2-14.7 INR in platelet poor plasma or blood by coagulation assay 1.0 0.8-1.4 Activated partial thromboplastin time (aPTT) in platelet poor plasma bycoagulation assay - 10/12/17 19:16 Activated partial thromboplastin time (aPTT) in platelet poor plasma bycoagulation assay 31 s 24-35 Blood manual differential performed detection - 10/12/17 19:16 Blood monocytes/100 leukocytes 5 % NRG Manual blood segmented neutrophils/100 leukocytes 71 % NRG Blood band neutrophils/100 leukocytes 16 % NRG Manual blood lymphocytes/100 leukocytes 5 % NRG Manual eosinophils/100 leukocytes in nose 0 % NRG Manual blood basophils/100 leukocytes 2 % NRG Blood erythrocyte morphology finding identification NORMAL NRG Manual blood metamyelocytes/100 leukocytes 1 % NRG Bacterial blood culture - 10/12/17 19:16 Bacterial blood culture NG NRG Bacterial blood culture - 10/12/17 19:50 Bacterial blood culture NG NRG Complete urinalysis with reflex to culture - 10/12/17 20:05 Urine color determination YELLOW NRG Urine clarity determination CLEAR NRG Urine pH measurement by test strip 5 5-9 Specific gravity of urine by test [...] detection in urine sediment by light microscopy TRACE NRG Squamous epithelial cells detection in urine sediment by light microscopy 2-5 NRG Crystals detection in urine sediment by light microscopy NONE NRG Casts detection in urine sediment by light microscopy NONE NRG Mucus detection in urine sediment by light microscopy SMALL NRG Complete urinalysis with reflex to culture NO NRG Bacterial urine culture - 10/12/17 20:05 Bacterial urine culture [id number] NRG COLONY COUNT . NRG FTX;REPORTABLE 40,000 CFU/ML NRG FREE TEXT ENTRY 2 NO SUSCEPTIBILITY PERFORMED NRG FREE TEXT ENTRY 3 FINAL REPORT 10-13-2017, 1705. NRG Serum or plasma lactate measurement (moles/volume) - 10/12/17 21:10 Serum or plasma lactate measurement (moles/volume) 1.57 mmol/L 0.50-2.00 Complete blood count (CBC) with automated white blood cell (WBC) differential - 10/13/17 05:05 Blood leukocytes automated count (number/volume) 12.5 10*3/uL 4.3-11.0 Blood erythrocytes automated count (number/volume) 3.98 10*6/uL 4.35-5.85 Venous blood hemoglobin measurement (mass/volume) 12.0 g/dL 11.5-16.0 Blood hematocrit (volume fraction) 34 % 35-52 Automated erythrocyte mean corpuscular volume 86 [foz_us] 80-99 Automated erythrocyte mean corpuscular hemoglobin (mass per erythrocyte) 30 pg 25-34 Automated erythrocyte mean corpuscular hemoglobin concentration measurement ( mass/volume) 35 g/dL 32-36 Automated erythrocyte distribution width ratio 13.3 % 10.0-14.5 Automated blood platelet count (count/volume) 195 10*3/uL 130-400 Automated blood platelet mean volume measurement 9.8 [foz_us] 7.4-10.4 Automated blood neutrophils/100 leukocytes 88 % 42-75 Automated blood lymphocytes/100 leukocytes 6 % 12-44 Blood monocytes/100 leukocytes 6 % 0-12 Automated blood eosinophils/100 leukocytes 0 % 0-10 Automated blood basophils/100 leukocytes 0 % 0-10 Blood neutrophils automated count (number/volume) 10.9 10*3 1.8-7.8 Blood lymphocytes automated count (number/volume) 0.8 10*3 1.0-4.0 Blood monocytes automated count (number/volume) 0.7 10*3 0.0-1.0 Automated eosinophil count 0.0 10*3/uL 0.0-0.3 Automated blood basophil count (count/volume) 0.0 10*3/uL 0.0-0.1 Comprehensive metabolic panel - 10/13/17 05:05 Serum or plasma sodium measurement (moles/volume) 137 mmol/L 135-145 Serum or plasma potassium measurement (moles/volume) 4.0 mmol/L 3.6-5.0 Serum or plasma chloride measurement (moles/volume) 108 mmol/L 98-107 Carbon dioxide 20 mmol/L 21-32 Serum or plasma anion gap determination (moles/volume) 9 mmol/L 5-14 Serum or plasma urea nitrogen measurement (mass/volume) 16 mg/dL 7-18 Serum or plasma creatinine measurement (mass/volume) 0.72 mg/dL 0.60-1.30 Serum or plasma urea nitrogen/creatinine mass ratio 22 NRG Serum or plasma creatinine measurement with calculation of estimated glomerular filtration rate > NRG Serum or plasma glucose measurement (mass/volume) 125 mg/dL 70-105 Serum or plasma calcium measurement (mass/volume) 9.0 mg/dL 8.5-10.1 Serum or plasma total bilirubin measurement (mass/volume) 0.8 mg/dL 0.1-1.0 Serum or plasma alkaline phosphatase measurement (enzymatic activity/volume) 167 U/L 40-136 Serum or plasma aspartate aminotransferase measurement (enzymatic activity/ volume) 407 U/L 5-34 Serum or plasma alanine aminotransferase measurement (enzymatic activity/volume ) 388 U/L 0-55 Serum or plasma protein measurement (mass/volume) 5.6 g/dL 6.4-8.2 Serum or plasma albumin measurement (mass/volume) 3.5 g/dL 3.2-4.5 CALCIUM CORRECTED 9.4 mg/dL 8.5-10.1 Complete blood count (CBC) with automated white blood cell (WBC) differential - 10/14/17 04:31 Blood leukocytes automated count (number/volume) 8.9 10*3/uL 4.3-11.0 Blood erythrocytes automated count (number/volume) 3.58 10*6/uL 4.35-5.85 Venous blood hemoglobin measurement (mass/volume) 10.6 g/dL 11.5-16.0 Blood hematocrit (volume fraction) 32 % 35-52 Automated erythrocyte mean corpuscular volume 88 [foz_us] 80-99 Automated erythrocyte mean corpuscular hemoglobin (mass per erythrocyte) 30 pg 25-34 Automated erythrocyte mean corpuscular hemoglobin concentration measurement ( mass/volume) 34 g/dL 32-36 Automated erythrocyte distribution width ratio 13.3 % 10.0-14.5 Automated blood platelet count (count/volume) 171 10*3/uL 130-400 Automated blood platelet mean volume measurement 9.9 [foz_us] 7.4-10.4 Automated blood neutrophils/100 leukocytes 85 % 42-75 Automated blood lymphocytes/100 leukocytes 9 % 12-44 Blood monocytes/100 leukocytes 7 % 0-12 Automated blood eosinophils/100 leukocytes 0 % 0-10 Automated blood basophils/100 leukocytes 0 % 0-10 Blood neutrophils automated count (number/volume) 7.6 10*3 1.8-7.8 Blood lymphocytes automated count (number/volume) 0.8 10*3 1.0-4.0 Blood monocytes automated count (number/volume) 0.6 10*3 0.0-1.0 Automated eosinophil count 0.0 10*3/uL 0.0-0.3 Automated blood basophil count (count/volume) 0.0 10*3/uL 0.0-0.1 Comprehensive metabolic panel - 10/14/17 04:31 Serum or plasma sodium measurement (moles/volume) 141 mmol/L 135-145 Serum or plasma potassium measurement (moles/volume) 3.6 mmol/L 3.6-5.0 Serum or plasma chloride measurement (moles/volume) 109 mmol/L 98-107 Carbon dioxide 24 mmol/L 21-32 Serum or plasma anion gap determination (moles/volume) 8 mmol/L 5-14 Serum or plasma urea nitrogen measurement (mass/volume) 10 mg/dL 7-18 Serum or plasma creatinine measurement (mass/volume) 0.75 mg/dL 0.60-1.30 Serum or plasma urea nitrogen/creatinine mass ratio 13 NRG Serum or plasma creatinine measurement with calculation of estimated glomerular filtration rate > NRG Serum or plasma glucose measurement (mass/volume) 89 mg/dL 70-105 Serum or plasma calcium measurement (mass/volume) 9.0 mg/dL 8.5-10.1 Serum or plasma total bilirubin measurement (mass/volume) 0.9 mg/dL 0.1-1.0 Serum or plasma alkaline phosphatase measurement (enzymatic activity/volume) 187 U/L 40-136 Serum or plasma aspartate aminotransferase measurement (enzymatic activity/ volume) 176 U/L 5-34 Serum or plasma alanine aminotransferase measurement (enzymatic activity/volume ) 513 U/L 0-55 Serum or plasma protein measurement (mass/volume) 5.3 g/dL 6.4-8.2 Serum or plasma albumin measurement (mass/volume) 3.1 g/dL 3.2-4.5 CALCIUM CORRECTED 9.7 mg/dL 8.5-10.1 Magnesium - 10/14/17 04:31 Magnesium 1.8 mg/dL 1.8-2.4 Complete blood count (CBC) with automated white blood cell (WBC) differential - 10/15/17 06:55 Blood leukocytes automated count (number/volume) 7.4 10*3/uL 4.3-11.0 Blood erythrocytes automated count (number/volume) 3.46 10*6/uL 4.35-5.85 Venous blood hemoglobin measurement (mass/volume) 10.1 g/dL 11.5-16.0 Blood hematocrit (volume fraction) 31 % 35-52 Automated erythrocyte mean corpuscular volume 88 [foz_us] 80-99 Automated erythrocyte mean corpuscular hemoglobin (mass per erythrocyte) 29 pg 25-34 Automated erythrocyte mean corpuscular hemoglobin concentration measurement ( mass/volume) 33 g/dL 32-36 Automated erythrocyte distribution width ratio 13.2 % 10.0-14.5 Automated blood platelet count (count/volume) 188 10*3/uL 130-400 Automated blood platelet mean volume measurement 9.9 [foz_us] 7.4-10.4 Automated blood neutrophils/100 leukocytes 84 % 42-75 Automated blood lymphocytes/100 leukocytes 9 % 12-44 Blood monocytes/100 leukocytes 7 % 0-12 Automated blood eosinophils/100 leukocytes 0 % 0-10 Automated blood basophils/100 leukocytes 0 % 0-10 Blood neutrophils automated count (number/volume) 6.2 10*3 1.8-7.8 Blood lymphocytes automated count (number/volume) 0.7 10*3 1.0-4.0 Blood monocytes automated count (number/volume) 0.5 10*3 0.0-1.0 Automated eosinophil count 0.0 10*3/uL 0.0-0.3 Automated blood basophil count (count/volume) 0.0 10*3/uL 0.0-0.1 Comprehensive metabolic panel - 10/15/17 06:55 Serum or plasma sodium measurement (moles/volume) 142 mmol/L 135-145 Serum or plasma potassium measurement (moles/volume) 3.6 mmol/L 3.6-5.0 Serum or plasma chloride measurement (moles/volume) 109 mmol/L 98-107 Carbon dioxide 24 mmol/L 21-32 Serum or plasma anion gap determination (moles/volume) 9 mmol/L 5-14 Serum or plasma urea nitrogen measurement (mass/volume) 9 mg/dL 7-18 Serum or plasma creatinine measurement (mass/volume) 0.68 mg/dL 0.60-1.30 Serum or plasma urea nitrogen/creatinine mass ratio 13 NRG Serum or plasma creatinine measurement with calculation of estimated glomerular filtration rate > NRG Serum or plasma glucose measurement (mass/volume) 90 mg/dL 70-105 Serum or plasma calcium measurement (mass/volume) 8.6 mg/dL 8.5-10.1 Serum or plasma total bilirubin measurement (mass/volume) 0.6 mg/dL 0.1-1.0 Serum or plasma alkaline phosphatase measurement (enzymatic activity/volume) 177 U/L 40-136 Serum or plasma aspartate aminotransferase measurement (enzymatic activity/ volume) 38 U/L 5-34 Serum or plasma alanine aminotransferase measurement (enzymatic activity/volume ) 291 U/L 0-55 Serum or plasma protein measurement (mass/volume) 5.4 g/dL 6.4-8.2 Serum or plasma albumin measurement (mass/volume) 3.2 g/dL 3.2-4.5 CALCIUM CORRECTED 9.2 mg/dL 8.5-10.1 Magnesium - 10/15/17 06:55 Magnesium 1.9 mg/dL 1.8-2.4 C DIFFICILE AG + TOXIN A/B. - 10/15/17 13:15 RESULTS NEGATIVE FOR ANTIGEN AND TOXIN A/B NRG Complete blood count (CBC) with automated white blood cell (WBC) differential - 10/16/17 05:41 Blood leukocytes automated count (number/volume) 6.4 10*3/uL 4.3-11.0 Blood erythrocytes automated count (number/volume) 3.61 10*6/uL 4.35-5.85 Venous blood hemoglobin measurement (mass/volume) 10.7 g/dL 11.5-16.0 Blood hematocrit (volume fraction) 32 % 35-52 Automated erythrocyte mean corpuscular volume 88 [foz_us] 80-99 Automated erythrocyte mean corpuscular hemoglobin (mass per erythrocyte) 30 pg 25-34 Automated erythrocyte mean corpuscular hemoglobin concentration measurement ( mass/volume) 34 g/dL 32-36 Automated erythrocyte distribution width ratio 13.3 % 10.0-14.5 Automated blood platelet count (count/volume) 228 10*3/uL 130-400 Automated blood platelet mean volume measurement 9.8 [foz_us] 7.4-10.4 Automated blood neutrophils/100 leukocytes 80 % 42-75 Automated blood lymphocytes/100 leukocytes 12 % 12-44 Blood monocytes/100 leukocytes 7 % 0-12 Automated blood eosinophils/100 leukocytes 1 % 0-10 Automated blood basophils/100 leukocytes 0 % 0-10 Blood neutrophils automated count (number/volume) 5.1 10*3 1.8-7.8 Blood lymphocytes automated count (number/volume) 0.8 10*3 1.0-4.0 Blood monocytes automated count (number/volume) 0.4 10*3 0.0-1.0 Automated eosinophil count 0.1 10*3/uL 0.0-0.3 Automated blood basophil count (count/volume) 0.0 10*3/uL 0.0-0.1 Comprehensive metabolic panel - 10/16/17 05:41 Serum or plasma sodium measurement (moles/volume) 142 mmol/L 135-145 Serum or plasma potassium measurement (moles/volume) 3.5 mmol/L 3.6-5.0 Serum or plasma chloride measurement (moles/volume) 111 mmol/L 98-107 Carbon dioxide 23 mmol/L 21-32 Serum or plasma anion gap determination (moles/volume) 8 mmol/L 5-14 Serum or plasma urea nitrogen measurement (mass/volume) 12 mg/dL 7-18 Serum or plasma creatinine measurement (mass/volume) 0.71 mg/dL 0.60-1.30 Serum or plasma urea nitrogen/creatinine mass ratio 17 NRG Serum or plasma creatinine measurement with calculation of estimated glomerular filtration rate > NRG Serum or plasma glucose measurement (mass/volume) 94 mg/dL 70-105 Serum or plasma calcium measurement (mass/volume) 8.8 mg/dL 8.5-10.1 Serum or plasma total bilirubin measurement (mass/volume) 0.4 mg/dL 0.1-1.0 Serum or plasma alkaline phosphatase measurement (enzymatic activity/volume) 181 U/L 40-136 Serum or plasma aspartate aminotransferase measurement (enzymatic activity/ volume) 22 U/L 5-34 Serum or plasma alanine aminotransferase measurement (enzymatic activity/volume ) 213 U/L 0-55 Serum or plasma protein measurement (mass/volume) 6.0 g/dL 6.4-8.2 Serum or plasma albumin measurement (mass/volume) 3.4 g/dL 3.2-4.5 CALCIUM CORRECTED 9.3 mg/dL 8.5-10.1 Magnesium - 10/16/17 05:41 Magnesium 1.9 mg/dL 1.8-2.4 Complete blood count (CBC) with automated white blood cell (WBC) differential - 10/17/17 01:30 Blood leukocytes automated count (number/volume) 8.3 10*3/uL 4.3-11.0 Blood erythrocytes automated count (number/volume) 3.93 10*6/uL 4.35-5.85 Venous blood hemoglobin measurement (mass/volume) 11.6 g/dL 11.5-16.0 Blood hematocrit (volume fraction) 34 % 35-52 Automated erythrocyte mean corpuscular volume 86 [foz_us] 80-99 Automated erythrocyte mean corpuscular hemoglobin (mass per erythrocyte) 30 pg 25-34 Automated erythrocyte mean corpuscular hemoglobin concentration measurement ( mass/volume) 34 g/dL 32-36 Automated erythrocyte distribution width ratio 13.0 % 10.0-14.5 Automated blood platelet count (count/volume) 254 10*3/uL 130-400 Automated blood platelet mean volume measurement 9.2 [foz_us] 7.4-10.4 Automated blood neutrophils/100 leukocytes 89 % 42-75 Automated blood lymphocytes/100 leukocytes 6 % 12-44 Blood monocytes/100 leukocytes 5 % 0-12 Automated blood eosinophils/100 leukocytes 0 % 0-10 Automated blood basophils/100 leukocytes 0 % 0-10 Blood neutrophils automated count (number/volume) 7.4 10*3 1.8-7.8 Blood lymphocytes automated count (number/volume) 0.5 10*3 1.0-4.0 Blood monocytes automated count (number/volume) 0.4 10*3 0.0-1.0 Automated eosinophil count 0.0 10*3/uL 0.0-0.3 Automated blood basophil count (count/volume) 0.0 10*3/uL 0.0-0.1 Comprehensive metabolic panel - 10/17/17 01:30 Serum or plasma sodium measurement (moles/volume) 140 mmol/L 135-145 Serum or plasma potassium measurement (moles/volume) 3.7 mmol/L 3.6-5.0 Serum or plasma chloride measurement (moles/volume) 107 mmol/L 98-107 Carbon dioxide 19 mmol/L 21-32 Serum or plasma anion gap determination (moles/volume) 14 mmol/L 5-14 Serum or plasma urea nitrogen measurement (mass/volume) 10 mg/dL 7-18 Serum or plasma creatinine measurement (mass/volume) 0.69 mg/dL 0.60-1.30 Serum or plasma urea nitrogen/creatinine mass ratio 14 NRG Serum or plasma creatinine measurement with calculation of estimated glomerular filtration rate > NRG Serum or plasma glucose measurement (mass/volume) 120 mg/dL 70-105 Serum or plasma calcium measurement (mass/volume) 9.2 mg/dL 8.5-10.1 Serum or plasma total bilirubin measurement (mass/volume) 0.5 mg/dL 0.1-1.0 Serum or plasma alkaline phosphatase measurement (enzymatic activity/volume) 181 U/L 40-136 Serum or plasma aspartate aminotransferase measurement (enzymatic activity/ volume) 17 U/L 5-34 Serum or plasma alanine aminotransferase measurement (enzymatic activity/volume ) 175 U/L 0-55 Serum or plasma protein measurement (mass/volume) 6.4 g/dL 6.4-8.2 Serum or plasma albumin measurement (mass/volume) 3.8 g/dL 3.2-4.5 CALCIUM CORRECTED 9.4 mg/dL 8.5-10.1 Magnesium - 10/17/17 01:30 Magnesium 1.9 mg/dL 1.8-2.4 Serum or plasma amylase measurement (enzymatic activity/volume) - 10/17/17 01: 30 Serum or plasma amylase measurement (enzymatic activity/volume) 75 U /L 25-125 Lipase - 10/17/17 01:30 Lipase 24 U/L 8-78 Complete urinalysis with reflex to culture - 10/17/17 01:40 Urine color determination YELLOW NRG Urine clarity determination CLEAR NRG Urine pH measurement by test strip 6.5 5-9 Specific gravity of urine by test strip 1.010 1.016- 1.022 Urine protein assay by test strip, semi-quantitative 2+ NEGATIVE Urine glucose detection by automated test [...] urinalysis with reflex to culture NO NRG Encounters ACCT No. Visit Date/Time Discharge Status Pt. Type Provider Facility Loc./Unit Complaint [id number] 03/05/2014 08:11:00 03/05/2014 23:59:59 CLS Outpatient LIBERTAD OROSCO DO [id number] 01/07/2014 10:03:00 01/07/2014 23:59:59 CLS Outpatient CANDELARIO ARGUETA APRN [id number] 12/05/2013 09:07:00 12/05/2013 23:59:59 CLS Outpatient CANDELARIO ARGUETA APRN [id number] 10/30/2013 13:49:00 10/30/2013 23:59:59 CLS Outpatient CANDELARIO ARGUETA APRN [id number] 09/21/2012 10:50:00 09/21/2012 23:59:59 CLS Outpatient LIBERTAD OROSCO DO [id number] 05/23/2012 10:43:00 Document Registration [id number] 11/09/2016 08:41:00 Document Registration [id number] 08/31/2017 12:20:00 08/31/2017 23:59:59 CLS Outpatient SIVAKUMAR CALDWELL LAWANDA Woodard [facility] [id number] 11/08/2016 08:40:00 Document Registration [id number] 03/11/2016 08:41:00 Document Registration [id number] 10/17/2017 00:34:00 10/17/2017 03:35:00 DIS Emergency JOHANNA ANNITA ARANGO K [facility] ER VOMITING,THINKS OVER MEDICATED [id number] 10/12/2017 20:43:00 10/16/2017 12:45:00 DIS Inpatient CAROLIN ARANGO NORBERT B [facility] 4TH SEPSIS,ABD PAIN [id number] 10/11/2017 12:47:00 10/11/2017 23:59:59 CLS Preadmit NYA MENDEZ MD [facility] RAD MALIGNANT CARCINOID TUMOR OF THE CECUM,NICHOLS SYND [id number] 10/11/2017 10:58:00 10/11/2017 23:59:59 CLS Outpatient NYA MENDEZ MD [facility] ONC [id number] 10/03/2017 08:08:00 10/03/2017 23:59:59 CLS Outpatient NYA MENDEZ MD [facility] RAD MALIGNANT CARCINOID TUMOR OF THE CECUM,NICHOLS SYND [id number] 09/28/2017 09:00:00 09/28/2017 23:59:59 CLS Preadmit NYA MENDEZ MD [facility] CARD MALIGNANT CARCINOID TUMOR OF THE CECUM,NICHOLS SYND [id number] 09/27/2017 09:00:00 09/27/2017 23:59:59 CLS Preadmit NYA MENDEZ MD [facility] CARD MALIGNANT CARCINOID TUMOR OF THE CECUM,NICHOLS SYND [id number] 09/14/2017 12:00:00 09/14/2017 23:59:59 CLS Preadmit NYA MENDEZ MD [facility] CARD [id number] 09/01/2017 12:55:00 09/01/2017 23:59:59 CLS Preadmit NYA MENDEZ MD [facility] CARD MALIGNANT CARCINOID TUMOR OF THE CECUM [id number] 09/01/2017 12:50:00 09/01/2017 23:59:59 CLS Outpatient NYA MENDEZ MD [facility] RAD MALIGNANT CARCINOID TUMOR OF THE CECUM [id number] 08/15/2017 11:01:00 08/15/2017 23:59:59 CLS Outpatient NORBERT COE DO [facility] LAB CARCINOID TUMOR [id number] 08/03/2017 14:30:00 08/07/2017 13:15:00 DIS Inpatient NORBERT COE DO [facility] 4TH SMALL BOWEL OBSTRUCTION [id number] 01/30/2017 16:56:00 01/30/2017 20:17:00 DIS Emergency ROSAMARIA CALIXTO MD [facility] ER DIARRHEA,VOMITING, COUGH [id number] 12/09/2016 04:37:00 12/09/2016 07:37:00 DIS Emergency ANNITA SPENCER DO [facility] ER LEFT SIDE PAIN,NAUSEA [id number] 10/26/2015 07:07:00 10/26/2015 23:59:59 CLS Outpatient LAWANDA SHAVER [facility] RAD SCREENING [id number] 06/20/2015 08:24:00 06/20/2015 11:01:00 DIS Emergency GALILEO CEBALLOS MD [facility] ER NAUSEA,VOMITING,L SIDE PAIN [id number] 12/26/2014 02:35:00 12/26/2014 05:29:00 DIS Emergency ANNITA SPENCER DO [facility] ER LEFT SIDE HURTS [id number] 10/22/2014 10:14:00 10/22/2014 23:59:59 CLS Outpatient LIBERTAD OROSCO DO [facility] RAD SCREENING [id number] 01/28/2014 09:12:00 01/28/2014 12:30:00 DIS Outpatient OPAL DAVIS MD [facility] SDC ABD PAIN [id number] 01/24/2014 05:50:00 01/24/2014 23:59:59 CLS Outpatient OPAL DAVIS MD [facility] PREOP ABD PAIN [id number] 12/22/2013 11:15:00 12/22/2013 13:14:00 DIS Emergency STACY CERRATO APRN [facility] ER PAIN IN LOWER ABD ON L SIDE [id number] 10/29/2013 09:38:00 10/29/2013 11:54:00 DIS Emergency KIMBERLY WHITEHEAD MD [facility] ER LEFT SIDE PAIN/ CRAMPING [id number] 09/19/2013 10:40:00 09/19/2013 12:30:00 DIS Emergency SEVERO LAN DO [facility] ER DIZZINESS [id number] 04/03/2013 16:17:00 04/03/2013 19:12:00 DIS Emergency ANNITA SPENCER DO [facility] ER N/V/D [id number] 11/05/2012 16:53:00 11/05/2012 20:19:00 DIS Emergency KIMBERLY WHITEHEAD MD [facility] ER [id number] 02/26/2015 10:36:00 Document Registration
[2017-11-11] MEDS ORDERED: fentaNYL INJECTION 100 MCG/2 ML AMP IVP ONE ×2 (21:15→22:30)
[2017-11-11 21:21] LABS: BILIRUBIN,URINE NEGATIVE (NEGATIVE); CLARITY,URINE CLEAR; COLOR,URINE YELLOW; GLUCOSE, URINE (UA) NEGATIVE (NEGATIVE); KETONES,URINE NEGATIVE (NEGATIVE); LEUKOCYTE ESTERASE ,URINE 1+ (NEGATIVE); NITRITE,URINE NEGATIVE (NEGATIVE); PH,URINE 5 (5-9); PROTEIN,URINE 1+ (NEGATIVE); UROBILINOGEN,URINE NORMAL (NORMAL)
[2017-11-11] MEDS: NS IV 1000 ML 1,000 ML IV SCH (21:24)
[2017-11-11 21:27] LABS: SQUAMOUS EPITHELIAL CELL,UR RARE /HPF; WBC,URINE 0-2 /HPF
[2017-11-11 21:31] LABS: BASOPHILS % (AUTO) 0 % (0-10); EOSINOPHILS % (AUTO) 0 % (0-10); HEMATOCRIT 37 % (35-52); HEMOGLOBIN 13.1 G/DL (11.5-16.0); LYMPHOCYTES # (AUTO) 0.8 X 10^3 (1.0-4.0); LYMPHOCYTES % (AUTO) 9 % (12-44); MEAN CORPUSCULAR HEMOGLOBIN 30 PG (25-34); MEAN CORPUSCULAR HGB CONC 36 G/DL (32-36); MEAN CORPUSCULAR VOLUME 85 FL (80-99); MEAN PLATELET VOLUME 9.9 FL (7.4-10.4); MONOCYTES # (AUTO) 0.6 X 10^3 (0.0-1.0); MONOCYTES % (AUTO) 6 % (0-12); NEUTROPHILS % (AUTO) 85 % (42-75); PLATELET COUNT 168 10^3/uL (130-400); RED BLOOD COUNT 4.35 10^6/uL (4.35-5.85); RED CELL DISTRIBUTION WIDTH 12.8 % (10.0-14.5); WHITE BLOOD COUNT 9.4 10^3/uL (4.3-11.0)
[2017-11-11 21:47] LABS: ALANINE AMINOTRANSFERASE 15 U/L (0-55); ALBUMIN 4.1 GM/DL (3.2-4.5); ALKALINE PHOSPHATASE 75 U/L (40-136); BILIRUBIN,TOTAL 0.6 MG/DL (0.1-1.0); BUN/CREATININE RATIO 20; CALCIUM 9.3 MG/DL (8.5-10.1); CARBON DIOXIDE 24 MMOL/L (21-32); CHLORIDE 108 MMOL/L (98-107); CREATININE SERUM 0.95 MG/DL (0.60-1.30); GFR ESTIMATED > 60; GLUCOSE 99 MG/DL (70-105); LIPASE 34 U/L (8-78); POTASSIUM 3.8 MMOL/L (3.6-5.0); SODIUM 141 MMOL/L (135-145); TOTAL PROTEIN 6.5 GM/DL (6.4-8.2)
[2017-11-11] MEDS ORDERED: NS 250 ML (IVPB) BAG IV ONE (22:00)
[2017-11-11] MEDS ORDERED: IOHEXOL 350 MG/ML 100 ML (OMNIPAQUE 350) VIAL IV ONE (22:00)
--- NOTE | 2017-11-11 22:09 | ED Abdominal Pain ---
General Chief Complaint: Abdominal/GI Problems Stated Complaint: R SIDE PAIN Nursing Triage Note: c/o RT LOWER ABD PAIN SINCE 1300. NO DIARRHEA OR VOMITNG Sepsis Screen: No Definite Risk Source of Information: Patient Exam Limitations: No Limitations History of Present Illness Date Seen by Provider: Nov 11, 2017 Time Seen by Provider: 21:10 Initial Comments Patient is a 47-year-old female who presents to the emergency room with complaints of right lower quadrant abdominal pain that started at 1300 today. She denies fever, vomiting, diarrhea, constipation, but she does report nausea. She has history of small bowel obstructions with perforation., currently has untreatable abdominal cancer. Timing/Duration: 4-6 Hours Severity/Quality: Mild Location: RLQ Radiation: No Radiation Activities at Onset: None Associated Symptoms: Nausea/Vomiting Allergies and Home Medications Allergies Coded Allergies: Sulfa (Sulfonamide Antibiotics) (Verified Allergy, Mild, RASH, 11/11/17) acetaminophen (Verified Adverse Reaction, Mild, N/V, 11/05/12) oxycodone HCl (Verified Adverse Reaction, Mild, N/V, 11/05/12) Home Medications Alendronate Sodium 70 Mg Tablet, 70 MG PO Sa, (Reported) Cholecalciferol (Vitamin D3) 5,000 Unit Capsule, 5,000 UNIT PO DAILY, (Reported) Clonazepam 1 Mg Tablet, 1 MG PO HS, (Reported) Duloxetine HCl 60 Mg Capsule.dr, 60 MG PO HS, (Reported) Pantoprazole Sodium 40 Mg Tablet.dr, 40 MG PO DAILY, (Reported) Patient Home Medication List Home Medication List Reviewed: Yes Review of Systems Review of Systems Constitutional: see HPI; No chills, No fever Gastrointestinal: See HPI, Abdominal Pain, Nausea All Other Systems Reviewed Negative Unless Noted: Yes Past [id number] Hx Past Med/Social Hx: Reviewed Nursing Past Med/Soc Hx Patient Social History Alcohol Use: Denies Use Recreational Drug Use: No Smoking Status: Never a Smoker 2nd Hand Smoke Exposure: No Recent Foreign Travel: No Contact w/Someone Who Travel: No Recent Infectious Disease Expo: No Recent Hopitalizations: No Physical Abuse: No Sexual Abuse: No Mistreated: No Fear: No Immunizations Up To Date Tetanus Booster (TDap): Less than 5yrs Date of Influenza Vaccine: Nov 06, 2017 Seasonal Allergies Seasonal Allergies: No Past Medical History Surgeries: Yes (RIGHT NEPHRECTOMY--" KIDNEY", VENTRAL HERNIA REPAIR, BMT'S , ) Abdominal, Adenoidectomy, Appendectomy, Ear Surgery, Gallbladder, Nephrectomy, Tonsillectomy Respiratory: No Cardiac: No Neurological: No Reproductive Disorders: Yes (NICHOLS'S SYNDROME) Genitourinary: Yes (S/P RIGHT NEPHRECTOMY FOR NON-FUNCTIONING KIDNEY) Kidney Infection, Bladder Infection, Kidney Stones, Polycystic Kidney Disease Gastrointestinal: Yes (HERNIA REPAIR, HEPATITIS A) Abdominal Hernia, Colitis, Hepatitis, Gall Bladder Disease, Irritable Bowel Musculoskeletal: Yes Arthritis Endocrine: Yes (NICHOLS'S SYNDROME) HEENT: Yes Chronic Ear Infection, Tonsilitis Hearing Impairment: Hard of Hearing Cancer: Yes Colon Did You Recieve Any Treatments: No Psychosocial: Yes Anxiety, Depression Integumentary: No Blood Disorders: No Family Medical History Reviewed Nursing Family Hx Patient reports no known family medical history. Cancer, Hypertension Physical Exam Vital Signs Vital Signs - First Documented 11/11/17 21:05 Temp 98.1 Pulse 81 Resp 16 B/P (MAP) 139/78 (98) Pulse Ox 99 Capillary Refill : Less Than 3 Seconds Height/Weight/BMI Height: 4'7.00" Weight: 123lbs. 6.0oz. [id number]; 28.7 BMI Method:Stated General Appearance: WD/WN, no apparent distress Respiratory: chest non-tender, lungs clear, normal breath sounds, no respiratory distress, no accessory muscle use Cardiovascular: normal peripheral pulses, regular rate, rhythm, no edema, no gallop, no JVD, no murmur Gastrointestinal: normal bowel sounds, soft, no organomegaly, no pulsatile mass , tenderness (right lower quadrant tenderness. She had pain even with the mild pressure of my stethoscope during auscultation.) Neurologic/Psychiatric: alert, normal mood/affect, oriented x 3 Skin: normal color, warm/dry Progress/Results/Core Measures Results/Orders Lab Results Laboratory Tests Test 11/11/17 21:05 11/11/17 21:19 Range/Units Urine Color YELLOW Urine Clarity CLEAR Urine pH 5 5-9 Urine Specific [place] 1.020 1.016-1.022 Urine Protein 1+ H NEGATIVE Urine Glucose (UA) NEGATIVE NEGATIVE Urine Ketones NEGATIVE NEGATIVE Urine Nitrite NEGATIVE NEGATIVE Urine Bilirubin NEGATIVE NEGATIVE Urine Urobilinogen NORMAL NORMAL MG/DL Urine Leukocyte Esterase 1+ H NEGATIVE Urine RBC (Auto) NEGATIVE NEGATIVE Urine RBC NONE /HPF Urine WBC 0-2 /HPF Urine Squamous Epithelial Cells RARE /HPF Urine Crystals NONE /LPF Urine Bacteria NONE /HPF Urine Casts NONE /LPF Urine Mucus NEGATIVE /LPF Urine Culture Indicated NO White Blood Count 9.4 4.3-11.0 10^3/uL Red Blood Count 4.35 4.35-5.85 10^6/uL Hemoglobin 13.1 11.5-16.0 G/DL Hematocrit 37 35-52 % Mean Corpuscular Volume 85 80-99 FL Mean Corpuscular Hemoglobin 30 25-34 PG Mean Corpuscular Hemoglobin Concent 36 32-36 G/DL Red Cell Distribution Width 12.8 10.0-14.5 % Platelet Count 168 130-400 10^3/uL Mean Platelet Volume 9.9 7.4-10.4 FL Neutrophils (%) (Auto) 85 H 42-75 % Lymphocytes (%) (Auto) 9 L 12-44 % Monocytes (%) (Auto) 6 0-12 % Eosinophils (%) (Auto) 0 0-10 % Basophils (%) (Auto) 0 0-10 % Neutrophils # (Auto) 8.0 H 1.8-7.8 X 10^3 Lymphocytes # (Auto) 0.8 L 1.0-4.0 X 10^3 Monocytes # (Auto) 0.6 0.0-1.0 X 10^3 Eosinophils # (Auto) 0.0 0.0-0.3 10^3/uL Basophils # (Auto) 0.0 0.0-0.1 10^3/uL Sodium Level 141 135-145 MMOL/L Potassium Level 3.8 3.6-5.0 MMOL/L Chloride Level 108 H 98-107 MMOL/L Carbon Dioxide Level 24 21-32 MMOL/L Anion Gap 9 5-14 MMOL/L Blood Urea Nitrogen 19 H 7-18 MG/DL Creatinine 0.95 0.60-1.30 MG/DL Estimat Glomerular Filtration Rate > 60 BUN/Creatinine Ratio 20 Glucose Level 99 70-105 MG/DL Calcium Level 9.3 8.5-10.1 MG/DL Corrected Calcium 9.2 8.5-10.1 MG/DL Total Bilirubin 0.6 0.1-1.0 MG/DL Aspartate Amino Transf (AST/SGOT) 16 5-34 U/L Alanine Aminotransferase (ALT/SGPT) 15 0-55 U/L Alkaline Phosphatase 75 40-136 U/L Total Protein 6.5 6.4-8.2 GM/DL Albumin 4.1 3.2-4.5 GM/DL Amylase Level 113 25-125 U/L Lipase 34 8-78 U/L My Orders Orders - ESTHERBUD PARIKHIS Comprehensive Metabolic Panel (11/11/17 21:15) Lipase (11/11/17 21:15) Ua Culture If Indicated (11/11/17 21:15) Saline Lock/Iv-Start (11/11/17:15) Cbc With Automated Diff (11/11/17:15) Ct Abdomen/Pelvis W (11/11/17:15) Amylase (11/11/17:) Ns Iv 1000 Ml (Sodium Chloride 0.9%) (11/11/17:15) Fentanyl Injection (Sublimaze Injection (11/11/17:15) Fentanyl Injection (Sublimaze Injection (11/11/17 22:30) Medications Given in ED Vital Signs/I&O 11/11/17 21:05 Temp 98.1 Pulse 81 Resp 16 B/P (MAP) 139/78 (98) Pulse Ox 99 Blood Pressure Mean: 98 Progress Progress Note : Time: 22:53 Progress Note I have seen and evaluated the patient. I've informed her of the CT findings. I' ve called Dr. Perez and he agrees with plans for admission, IV antibiotics, IV fluids, nothing by mouth status. The patient agrees with plans of care. Diagnostic Imaging Diagonstic Imaging: CT Plain Films/CT/US/NM/MRI: abdomen, pelvis Comments 2200 Discussed with radiologist with concerns of bowel perforation due to free air and abdomen on CT scan. He is concerned with microperforation. Reviewed: Discussed w/Radiologist Departure Communication (Admissions) Time/Spoke to Admitting Phy: 22:[address] Perez at this time. He agrees with plans for admission, IV antibiotics, IV fluids, nothing by mouth status. He also wants a consult to medical in the morning. Impression Primary Impression: Bowel perforation Disposition: ADMITTED INPATIENT Condition: Stable/Unchanged Admissions Decision to Admit Reason: Admit from ER (General) Decision to Admit/Date: Nov 11, 2017 Time/Decision to Admit Time: 22:55 Departure-Patient Inst. Referrals: [facility] (PCP) Primary Care Physician SUMMER HUNG APRN (Family) Primary Care Physician ALIRIO WILSON Nov 11, 2017 22:09
[2017-11-11] MEDS ORDERED: PIPERACILLIN SODIUM/TAZOBACTAM 4.5 GM in NS (IVPB) 100 ML IV ONE (22:45)
--- OUTSIDE RECORDS SUMMARY | 2017-11-11 23:05 | XMS REPORT | Continuity of Care Document ---
Author Author [facility] Address Unknown Phone Unavailable Allergies Active Description Code Type Severity Reaction Onset Reported/Identified Relationship to Patient Clinical Status Yes acetaminophen [id number] Drug Allergy Mild N/V 11/05/2012 Yes oxycodone HCl [id number] Drug Allergy Mild N/V 11/05/2012 Yes Sulfa (Sulfonamide Antibiotics) [id number] Drug Allergy Mild RASH 2012 Medications There [...] ABDOMINAL PAIN, LEFT LOWER QUADRANT 10/30/2013 ELLIE RESIDENTIAL TECH, CANDELARIO R 789.00 ABDOMINAL PAIN UNSPECIFIED SITE 10/30/2013 ELLIE RESIDENTIAL TECH, CANDELARIO R 789.00 ABDOMINAL PAIN UNSPECIFIED SITE 10/30/2013 ELLIE CALDWELL, CANDELARIO R 789.00 ABDOMINAL PAIN UNSPECIFIED SITE 10/30/2013 LIBERTAD OROSCO DO K 789.00 ABDOMINAL PAIN UNSPECIFIED SITE 12/05/2013 ELLEI CALDWELL, CANDELARIO R 564.1 IRRITABLE BOWEL SYNDROME 12/05/2013 ARTHUR ARGUETA APRNINA R 564.1 IRRITABLE BOWEL SYNDROME 12/05/2013 LIBERTAD OROSCO DO 564.1 IRRITABLE BOWEL SYNDROME 12/22/2013 STACY CERRATO RESIDENTIAL TECH Ot 558.9 NONINF GASTROENTERIT NEC 12/22/2013 STACY CERRATO RESIDENTIAL TECH Ot 789.04 ABDOMINAL PAIN, LEFT LOWER QUADRANT 01/28/2014 OPAL DAVIS MD Ot 455.0 INT HEMORRHOID W/O COMPL 01/28/2014 OPAL DAVIS MD Ot 455.3 EXT HEMORRHOID W/O COMPL 01/28/2014 OPAL DAVIS MD Ot 787.99 OTHER GI SYSTEM SYMPTOMS 03/04/2014 LIBERTAD OROSCO DO V07.4 HORMONE REPLACEMENT THERAPY (POSTMENOPAUSAL) 03/04/2014 LIBERTAD OROSCO DO V72.31 TOMOGRAPHIC TECH EXAM, ROUTINE 03/04/2014 LIBERTAD OROSCO DO V72.62 [...] ACQUIRED ABSENCE OF KIDNEY 10/27/2015 LAWANDA SHAVER JAILKEEPER Ot Z12.31 ENCNTR SCREEN MAMMOGRAM FOR MALIGNANT NE 11/13/2015 LAWANDA SHAVER JAILKEEPER Ot Z12.31 ENCNTR SCREEN MAMMOGRAM FOR MALIGNANT NE 12/09/2016 OPAL DAVIS MD Ot V72.84 EXAM PRE-OPERATIVE NOS 12/09/2016 OROSCO DO, LIBERTAD K Ot V76.12 OTH SCREEN MAMMO-MALIGN NEOPLASM OF JORDAN 12/09/2016 Ot E28.310 SYMPTOMATIC PREMATURE MENOPAUSE 12/09/2016 Ot M85.80 OTH DISRD OF BONE DENSITY AND STRUCTURE, 12/09/2016 Ot 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, UNSPECIFIED 12/09/2016 MADLLAWANDA Vance JAILKEEPER Ot Z12.31 ENCNTR SCREEN MAMMOGRAM FOR MALIGNANT [...] 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, UNSPECIFIED 12/09/2016 MADLTOANLAWANDA Vance JAILKEEPER Ot Z12.31 ENCNTR SCREEN MAMMOGRAM FOR MALIGNANT [...] 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, UNSPECIFIED 08/15/2017 MADLAWANDA Woodard JAILKEEPER Ot Z12.31 ENCNTR SCREEN MAMMOGRAM FOR MALIGNANT [...] Procedures Code [place] [address] ROUTINE VENIPUNCTURE 09/21/2012 78981 CBC 09/21/2012 17434 LIPID PANEL 09/21/2012 75772 CMP 09/21/2012 [id number] GFR CALC (RESULT ONLY) 09/21/2012 92310 TSH 09/21/2012 24781 T4 FREE 09/21/2012 [id number] EXCISION OF ILEUM, OPEN APPROACH 08/04/2017 [id number] EXCISION OF CECUM, OPEN APPROACH 08/04/2017 [id number] REPAIR ABDOMINAL WALL, OPEN APPROACH 08/04/2017 Results [...] NR Blood erythrocyte morphology finding identification [facility] Comprehensive metabolic panel - 01/30/17 17:30 [...] - 18:11 MRSA SCREEN RESULT MRSA [facility] Complete blood count (CBC) with automated [...] culture - 10/12/17 20:05 Bacterial urine culture [id number] NRG COLONY COUNT . NRG FTX;REPORTABLE 40,000 [...] with reflex to culture NO NRG Complete urinalysis with reflex to culture - 11/11/17 21:05 Urine color determination YELLOW NRG Urine clarity determination CLEAR NRG Urine pH measurement by test strip 5 5-9 Specific gravity of urine by test strip 1.020 1.016- 1.022 Urine protein assay by test strip, semi-quantitative 1+ NEGATIVE Urine glucose detection by automated test [...] urine sediment by light microscopy NONE NRG Squamous epithelial cells detection in urine sediment by light microscopy RARE NRG Crystals detection in urine sediment by light microscopy NONE NRG Casts detection in urine sediment by light microscopy NONE NRG Mucus detection in urine sediment by light microscopy NEGATIVE NRG Complete urinalysis with reflex to culture NO NRG Complete blood count (CBC) with automated white blood cell (WBC) differential - 11/11/17 21:19 Blood leukocytes automated count (number/volume) 9.4 10*3/uL 4.3-11.0 Blood erythrocytes automated count (number/volume) 4.35 10*6/uL 4.35-5.85 Venous blood hemoglobin measurement (mass/volume) 13.1 g/dL 11.5-16.0 Blood hematocrit (volume fraction) 37 % 35-52 Automated erythrocyte mean corpuscular volume 85 [foz_us] 80-99 Automated erythrocyte mean corpuscular hemoglobin (mass per erythrocyte) 30 pg 25-34 Automated erythrocyte mean corpuscular hemoglobin concentration measurement ( mass/volume) 36 g/dL 32-36 Automated erythrocyte distribution width ratio 12.8 % 10.0-14.5 Automated blood platelet count (count/volume) 168 10*3/uL 130-400 Automated blood platelet mean volume measurement 9.9 [foz_us] 7.4-10.4 Automated blood neutrophils/100 leukocytes 85 % 42-75 Automated blood lymphocytes/100 leukocytes 9 % 12-44 Blood monocytes/100 leukocytes 6 % 0-12 Automated blood eosinophils/100 leukocytes 0 % 0-10 Automated blood basophils/100 leukocytes 0 % 0-10 Blood neutrophils automated count (number/volume) 8.0 10*3 1.8-7.8 Blood lymphocytes automated count (number/volume) 0.8 10*3 1.0-4.0 Blood monocytes automated count (number/volume) 0.6 10*3 0.0-1.0 Automated eosinophil count 0.0 10*3/uL 0.0-0.3 Automated blood basophil count (count/volume) 0.0 10*3/uL 0.0-0.1 Serum or plasma amylase measurement (enzymatic activity/volume) - 11/11/17 21: 19 Serum or plasma amylase measurement (enzymatic activity/volume) 113 U/L 25-125 Comprehensive metabolic panel - 11/11/17 21:19 Serum or plasma sodium measurement (moles/volume) 141 mmol/L 135-145 Serum or plasma potassium measurement (moles/volume) 3.8 mmol/L 3.6-5.0 Serum or plasma chloride measurement (moles/volume) 108 mmol/L 98-107 Carbon dioxide 24 mmol/L 21-32 Serum or plasma anion gap determination (moles/volume) 9 mmol/L 5-14 Serum or plasma urea nitrogen measurement (mass/volume) 19 mg/dL 7-18 Serum or plasma creatinine measurement (mass/volume) 0.95 mg/dL 0.60-1.30 Serum or plasma urea nitrogen/creatinine mass ratio 20 NRG Serum or plasma creatinine measurement with calculation of estimated glomerular filtration rate > NRG Serum or plasma glucose measurement (mass/volume) 99 mg/dL 70-105 Serum or plasma calcium measurement (mass/volume) 9.3 mg/dL 8.5-10.1 Serum or plasma total bilirubin measurement (mass/volume) 0.6 mg/dL 0.1-1.0 Serum or plasma alkaline phosphatase measurement (enzymatic activity/volume) 75 U/L 40-136 Serum or plasma aspartate aminotransferase measurement (enzymatic activity/ volume) 16 U/L 5-34 Serum or plasma alanine aminotransferase measurement (enzymatic activity/volume ) 15 U/L 0-55 Serum or plasma protein measurement (mass/volume) 6.5 g/dL 6.4-8.2 Serum or plasma albumin measurement (mass/volume) 4.1 g/dL 3.2-4.5 CALCIUM CORRECTED 9.2 mg/dL 8.5-10.1 Lipase - 11/11/17 21:19 Lipase 34 U/L 8-78 Encounters ACCT No. Visit Date/Time Discharge Status Pt. Type Provider Facility Loc./Unit Complaint [id number] 03/05/2014 08:11:00 03/05/2014 23:59:59 CLS Outpatient LIBERTAD OROSCO DO [id number] 01/07/2014 10:03:00 01/07/2014 23:59:59 CLS Outpatient CANDELARIO ARGUETA APRN [id number] 12/05/2013 09:07:00 12/05/2013 23:59:59 CLS Outpatient CANDELARIO ARGUETA APRN [id number] 10/30/2013 13:49:00 10/30/2013 23:59:59 CLS Outpatient CANDELARIO ARGUETA APRN [id number] 09/21/2012 10:50:00 09/21/2012 23:59:59 CLS Outpatient LIBERTAD OROSCO DO [id number] 05/23/2012 10:43:00 Document Registration [id number] 11/09/2016 08:41:00 Document Registration [id number] 08/31/2017 12:20:00 08/31/2017 23:59:59 CLS Outpatient TOAN SHAVER APRNNYCipriano Woodard [facility] [id number] 11/08/2016 08:40:00 Document Registration [id number] 03/11/2016 08:41:00 Document Registration [id number] 10/17/2017 00:34:00 10/17/2017 03:35:00 DIS Emergency ANNITA SPENCER DO [facility] ER VOMITING,THINKS OVER MEDICATED [id number] 10/12/2017 20:43:00 10/16/2017 12:45:00 DIS Inpatient NORBERT COE DO [facility] 4TH SEPSIS,ABD PAIN [id number] 10/11/2017 12:47:00 10/11/2017 23:59:59 CLS Preadmit NYA MENDEZ MD [facility] RAD MALIGNANT CARCINOID TUMOR OF THE CECUM,NICHOLS SYND [id number] 10/11/2017 10:58:00 10/11/2017 23:59:59 CLS Outpatient NYA MENDEZ MD [facility] ONC [id number] 10/03/2017 08:08:00 10/03/2017 23:59:59 CLS Outpatient NYA MENDEZ MD [facility] RAD MALIGNANT CARCINOID TUMOR OF THE CECUM,NICHOLS SYND [id number] 09/28/2017 09:00:00 09/28/2017 23:59:59 CLS Preadmit NYA MENDEZ MD [facility] CARD MALIGNANT CARCINOID TUMOR OF THE CECUM,NICHOLS SYND [id number] 09/27/2017 09:00:00 09/27/2017 23:59:59 CLS Preadmit NYA MENDEZ MD [facility] CARD MALIGNANT CARCINOID TUMOR OF THE CECUM,NICHOLS SYND [id number] 09/14/2017 12:00:00 09/14/2017 23:59:59 CLS Preadmit NYA MENDEZ MD [facility] CARD [id number] 09/01/2017 12:55:00 09/01/2017 23:59:59 CLS Preadmit NYA MENDEZ MD [facility] CARD MALIGNANT CARCINOID TUMOR OF THE CECUM [id number] 09/01/2017 12:50:00 09/01/2017 23:59:59 CLS Outpatient NYA MENDEZ MD [facility] RAD MALIGNANT CARCINOID TUMOR OF THE CECUM [id number] 08/15/2017 11:01:00 08/15/2017 23:59:59 CLS Outpatient NORBERT COE DO [facility] LAB CARCINOID TUMOR [id number] 08/03/2017 14:30:00 08/07/2017 13:15:00 DIS Inpatient NORBERT COE DO [facility] 4TH SMALL BOWEL OBSTRUCTION [id number] 01/30/2017 16:56:00 01/30/2017 20:17:00 DIS Emergency DURGA GRANADOS, ROSAMARIA Ortega [facility] ER DIARRHEA,VOMITING, COUGH [id number] 12/09/2016 04:37:00 12/09/2016 07:37:00 DIS Emergency ANNITA SPENCER DO [facility] ER LEFT SIDE PAIN,NAUSEA [id number] 10/26/2015 07:07:00 10/26/2015 23:59:59 CLS Outpatient LAWANDA SHAVER [facility] RAD SCREENING [id number] 06/20/2015 08:24:00 06/20/2015 11:01:00 DIS Emergency GALILEO CEBALLOS MD [facility] ER NAUSEA,VOMITING,L SIDE PAIN [id number] 12/26/2014 02:35:00 12/26/2014 05:29:00 DIS Emergency JOHANNAANNITA Mathew DO [facility] ER LEFT SIDE HURTS [id number] 10/22/2014 10:14:00 10/22/2014 23:59:59 CLS Outpatient LIBERTAD OROSCO DO [facility] RAD SCREENING [id number] 01/28/2014 09:12:00 01/28/2014 12:30:00 DIS Outpatient OPAL DAVIS MD [facility] SDC ABD PAIN [id number] 01/24/2014 05:50:00 01/24/2014 23:59:59 CLS Outpatient OPAL DAVIS MD [facility] PREOP ABD PAIN [id number] 12/22/2013 11:15:00 12/22/2013 13:14:00 DIS Emergency STACY CERRATO APRN [facility] ER PAIN IN LOWER ABD ON L SIDE [id number] 10/29/2013 09:38:00 10/29/2013 11:54:00 DIS Emergency KIMBERLY WHITEHEAD MD [facility] ER LEFT SIDE PAIN/ CRAMPING [id number] 09/19/2013 10:40:00 09/19/2013 12:30:00 DIS Emergency SEVERO LAN DO [facility] ER DIZZINESS [id number] 04/03/2013 16:17:00 04/03/2013 19:12:00 DIS Emergency ANNITA SPENCER DO [facility] ER N/V/D [id number] 11/05/2012 16:53:00 11/05/2012 20:19:00 DIS Emergency KIMBERLY WHITEHEAD MD [facility] [id number] 11/11/2017 21:28:00 Document Registration [id number] 02/26/2015 10:36:00 Document Registration
[2017-11-11 23:15] VITALS: BP 136/80
[2017-11-11 23:30] VITALS: BP 130/81
[2017-11-11 23:45] VITALS: BP 118/75
[2017-11-12] VITALS (12 sets, daily range): BP systolic 95–144; BP diastolic 63–85
[2017-11-12] MEDS ORDERED: ONDANSETRON 4 MG/2 ML (SDV) Z0FRAN IV PRN (00:45)
[2017-11-12] MEDS: fentaNYL INJECTION 100 MCG/2 ML AMP IV PRN ×6 (01:19→20:56)
[2017-11-12] MEDS: NS IV 1000 ML 1,000 ML IV SCH ×5 (01:22→18:05)
[2017-11-12 03:31] LABS: BASOPHILS % (AUTO) 0 % (0-10); EOSINOPHILS % (AUTO) 0 % (0-10); HEMATOCRIT 38 % (35-52); HEMOGLOBIN 12.8 G/DL (11.5-16.0); LYMPHOCYTES # (AUTO) 0.4 X 10^3 (1.0-4.0); LYMPHOCYTES % (AUTO) 3 % (12-44); MEAN CORPUSCULAR HEMOGLOBIN 29 PG (25-34); MEAN CORPUSCULAR HGB CONC 34 G/DL (32-36); MEAN CORPUSCULAR VOLUME 85 FL (80-99); MONOCYTES # (AUTO) 0.7 X 10^3 (0.0-1.0); MONOCYTES % (AUTO) 6 % (0-12); NEUTROPHILS # (AUTO) 10.9 X 10^3 (1.8-7.8); NEUTROPHILS % (AUTO) 91 % (42-75); PLATELET COUNT 163 10^3/uL (130-400); RED BLOOD COUNT 4.47 10^6/uL (4.35-5.85); RED CELL DISTRIBUTION WIDTH 13.1 % (10.0-14.5); WHITE BLOOD COUNT 11.9 10^3/uL (4.3-11.0)
[2017-11-12 03:56] LABS: ALANINE AMINOTRANSFERASE 60 U/L (0-55); ALBUMIN 3.5 GM/DL (3.2-4.5); ALKALINE PHOSPHATASE 91 U/L (40-136); BILIRUBIN,TOTAL 1.7 MG/DL (0.1-1.0); BUN/CREATININE RATIO 19; CALCIUM 8.1 MG/DL (8.5-10.1); CARBON DIOXIDE 23 MMOL/L (21-32); CHLORIDE 110 MMOL/L (98-107); CREATININE SERUM 0.77 MG/DL (0.60-1.30); GFR ESTIMATED > 60; GLUCOSE 123 MG/DL (70-105); POTASSIUM 4.2 MMOL/L (3.6-5.0); SODIUM 141 MMOL/L (135-145); TOTAL PROTEIN 5.6 GM/DL (6.4-8.2)
[2017-11-12 04:11] LABS: LYMPHOCYTES % (MANUAL) 4 %; MONOCYTES % (MANUAL) 3 %; NEUTROPHILS % (MANUAL) 96 %; RBC MORPH NORMAL
[2017-11-12] MEDS: PIPERACILLIN/TAZO 4.5 GM/NS 100 ML IV SCH ×6 (06:13→20:50)
[2017-11-12] MEDS ORDERED: NS IV 1000 ML 1,000 ML IV SCH (06:30)
--- NOTE | 2017-11-12 07:19 | Diagnostic Imaging Report ---
PROCEDURE: CT abdomen and pelvis with contrast. TECHNIQUE: Multiple contiguous axial images were obtained through the abdomen and pelvis after administration of intravenous contrast. INDICATION: Right lower quadrant abdominal pain. COMPARISON: CT abdomen and pelvis without contrast 10/17/2017. FINDINGS: Again seen is an ileocecal anastomosis in the right lower quadrant. The adjacent inflammatory changes have increased since the prior exam. There is also now a small amount of extraluminal gas laterally to the anastomosis suspicious for an anastomotic leak. Lung bases are clear. Cholecystectomy. Right nephrectomy. The liver, pancreas, spleen, adrenals, left kidney, left ureter and bladder are unremarkable. No lymphadenopathy. No evidence of bowel obstruction. No acute osseous findings. IMPRESSION: Extraluminal air and increasing inflammatory changes about the bowel anastomosis in the right lower quadrant suspicious for anastomotic leak and/or abscess. Dictated by: Dictated on workstation # [id number]
--- NOTE | 2017-11-12 12:18 | History & Physical-Surgical ---
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 Patient since has had one episode of some inflammatory changes of the right lower quadrant. Patient yesterday about 1 o'clock began having some right lower quadrant abdominal pain. She was not having any pain prior. She states that nothing really seems to be making it worse. Nothing was really making it better. Patient is not having any nausea or vomiting. Her pain is about a 7 or 8 out of 10 and she states. No radiation of pain. Patient had a CT scan that I reviewed demonstrating inflammation in the right lower quadrant as small focus of extraluminal air. She had a normal white count with increasing neutrophils and today's repeat CBC her white count was elevated to 11.9. She is not having any fever. No sweats chills shortness of breath or chest pain. Date of Admission Nov 11, 2017 at 22:30 Date Seen by a Provider: Nov 12, 2017 Time Seen by a Provider: 09:32 I consulted on this patient on 11/12/17 12:11 Attending Physician Sarah Beaver DO Admitting Physician [facility] Consult Allergies and Home Medications Allergies Coded Allergies: Sulfa (Sulfonamide Antibiotics) (Verified Allergy, Mild, RASH, 11/11/17) acetaminophen (Verified Adverse Reaction, Mild, N/V, 11/05/12) oxycodone HCl (Verified Adverse Reaction, Mild, N/V, 11/05/12) Home Medications Alendronate Sodium 70 Mg Tablet, 70 MG PO Sa, (Reported) Cholecalciferol (Vitamin D3) 5,000 Unit Capsule, 5,000 UNIT PO DAILY, (Reported) Clonazepam 1 Mg Tablet, 1 MG PO HS, (Reported) Duloxetine HCl 30 Mg Capsule.dr, 60 MG PO HS, (Reported) Pantoprazole Sodium 40 Mg Tablet.dr, 40 MG PO DAILY Prescribed by: ANNITA SPENCER on 10/17/17 5580 Patient Home Medication List Home Medication List Reviewed: Yes Past Yhcljbm-Akqbpq-Jojlwv Hx Patient Social History Alcohol Use: Denies Use Recreational Drug Use: No Smoking Status: Former Smoker Type Used: Cigars 2nd Hand Smoke Exposure: No Recent Foreign Travel: No Contact w/Someone Who Travel: No Recent Infectious Disease Expo: No Recent Hopitalizations: Yes Physical Abuse Screen: No Sexual Abuse: No Immunizations Up To Date Tetanus Booster (TDap): Less than 5yrs PED Vaccines UTD: Yes Date of Influenza Vaccine: Nov 06, 2017 Seasonal Allergies Seasonal Allergies: No Surgeries History of Surgeries: Yes (RIGHT NEPHRECTOMY--" KIDNEY", VENTRAL HERNIA REPAIR, BOWEL RECONSTRUT ) Surgeries: Abdominal, Adenoidectomy, Appendectomy, Ear Surgery, Gallbladder, Nephrectomy, Tonsillectomy Respiratory History of Respiratory Disorde: No Cardiovascular History of Cardiac Disorders: No Neurological History of Neurological Disord: No Reproductive System Hx Reproductive Disorders: Yes (NICHOLS'S SYNDROME) Sexually Transmitted Disease: No HIV/AIDS: No Female Reproductive Disorders: Denies Genitourinary History of Genitourinary Disor: Yes (S/P RIGHT NEPHRECTOMY FOR NON-FUNCTIONING KIDNEY) Genitourinary Disorders: Kidney Infection, Bladder Infection, Kidney Stones, Polycystic Kidney Disease Gastrointestinal History of Gastrointestinal Di: Yes (HERNIA REPAIR, HEPATITIS A, gastric perf.) Gastrointestinal Disorders: Abdominal Hernia, Colitis, Hepatitis, Gall Bladder Disease, Irritable Bowel Musculoskeletal History of Musculoskeletal Dis: Yes Musculoskeletal Disorders: Arthritis Endocrine History of Endocrine Disorders: Yes (NICHOLS'S SYNDROME) HEENT History of HEENT Disorders: Yes HEENT Disorders: Chronic Ear Infection Hearing Impairment: Hard of Hearing Cancer History of Cancer: Yes Cancer: Colon Psychosocial History of Psychiatric Problem: Yes Behavioral Health Disorders: Anxiety, Depression Integumentary History of Skin or Integumenta: No Blood Transfusions History of Blood Disorders: No Adverse Reaction to a Blood Tr: No Family Medical History Significant Family History: Cancer, Hypertension Family Medial History: SKIN CANCER 20 FATHER Review of Systems Constitutional: no symptoms reported EENTM: no symptoms reported Respiratory: no symptoms reported Cardiovascular: no symptoms reported Gastrointestinal: see HPI Genitourinary: no symptoms reported Musculoskeletal: no symptoms reported Skin: no symptoms reported Psychiatric/Neurological: No Symptoms Reported Physical Exam Vital Signs Vital Signs - First Documented 11/11/17 11/11/17 21:05 23:15 Temp 98.1 Pulse 81 Resp 16 B/P (MAP) 139/78 (98) Pulse Ox 99 O2 Delivery Room Air Capillary Refill : Less Than 3 Seconds Height, Weight, BMI Height: 4'7.00" Weight: 122lbs. 1.0oz. 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 Norm as Tested Skin: Normal Color, Warm/Dry Lymphatic: No Adenopathy Data Review Labs Laboratory Tests 11/11/17 21:05: Urine Color YELLOW, Urine Clarity CLEAR, Urine pH 5, Urine Specific [place] 1.020, Urine Protein 1+H, Urine Glucose (UA) NEGATIVE, Urine Ketones NEGATIVE, Urine Nitrite NEGATIVE, Urine Bilirubin NEGATIVE, Urine Urobilinogen NORMAL, Urine Leukocyte Esterase 1+H, Urine RBC (Auto) NEGATIVE, Urine RBC NONE, Urine WBC 0-2, Urine Squamous Epithelial Cells RARE, Urine Crystals NONE, Urine Bacteria NONE, Urine Casts NONE, Urine Mucus NEGATIVE, Urine Culture Indicated NO 11/11/17 21:19: White Blood Count 9.4, Red Blood Count 4.35, Hemoglobin 13.1, Hematocrit 37, Mean Corpuscular Volume 85, Mean Corpuscular Hemoglobin 30, Mean Corpuscular Hemoglobin Concent 36, Red Cell Distribution Width 12.8, Platelet Count 168, Mean Platelet Volume 9.9, Neutrophils (%) (Auto) 85H, Lymphocytes (%) (Auto) 9L , Monocytes (%) (Auto) 6, Eosinophils (%) (Auto) 0, Basophils (%) (Auto) 0, Neutrophils # (Auto) 8.0H, Lymphocytes # (Auto) 0.8L, Monocytes # (Auto) 0.6, Eosinophils # (Auto) 0.0, Basophils # (Auto) 0.0, Sodium Level 141, Potassium Level 3.8, Chloride Level 108H, Carbon Dioxide Level 24, Anion Gap 9, Blood Urea Nitrogen 19H, Creatinine 0.95, Estimat Glomerular Filtration Rate > 60, BUN /Creatinine Ratio 20, Glucose Level 99, Calcium Level 9.3, Corrected Calcium 9.2 , Total Bilirubin 0.6, Aspartate Amino Transf (AST/SGOT) 16, Alanine Aminotransferase (ALT/SGPT) 15, Alkaline Phosphatase 75, Total Protein 6.5, Albumin 4.1, Amylase Level 113, Lipase 34 11/12/17 03:10: White Blood Count 11.9H, Red Blood Count 4.47, Hemoglobin 12.8, Hematocrit 38, Mean Corpuscular Volume 85, Mean Corpuscular Hemoglobin 29, Mean Corpuscular Hemoglobin Concent 34, Red Cell Distribution Width 13.1, Platelet Count 163, Mean Platelet Volume 10.0, Neutrophils (%) (Auto) 91H, Lymphocytes (%) (Auto) 3L , Monocytes (%) (Auto) 6, Eosinophils (%) (Auto) 0, Basophils (%) (Auto) 0, Neutrophils # (Auto) 10.9H, Lymphocytes # (Auto) 0.4L, Monocytes # (Auto) 0.7, Eosinophils # (Auto) 0.0, Basophils # (Auto) 0.0, Sodium Level 141, Potassium Level 4.2, Chloride Level 110H, Carbon Dioxide Level 23, Anion Gap 8, Blood Urea Nitrogen 15, Creatinine 0.77, Estimat Glomerular Filtration Rate > 60, BUN/ Creatinine Ratio 19, Glucose Level 123H, Calcium Level 8.1L, Corrected Calcium 8.5, Total Bilirubin 1.7H, Aspartate Amino Transf (AST/SGOT) 103H, Alanine Aminotransferase (ALT/SGPT) 60H, Alkaline Phosphatase 91, Total Protein 5.6L, Albumin 3.5, Neutrophils % (Manual) 96, Lymphocytes % (Manual) 4, Monocytes % ( Manual) 3, Blood Morphology Comment NORMAL Assessment/Plan Assessment/Plan Admission Diagonsis Right lower quadrant abdominal pain Microperforation of hollow viscus Nichols syndrome History of right colon resection for carcinoid Admission Status: Inpatient Order (span 2 midnights) Reason for Inpatient Admission: Patient will need bowel rest and IV antibiotics. Patient may need surgical intervention and we need to watch closely. Assessment/Plan Right lower quadrant abdominal pain Microperforation of hollow viscus Nichols syndrome History of right colon resection for carcinoid Patient CT scan reviewed demonstrating inflammation in the right lower quadrant and appears to have a small amount of extraluminal air at the anastomosis. She recently had this finding except for the without extraluminal air approximately one month ago. We will place her on IV fluids, Zosyn, pain control. Provide IV fluids. At this time we will try conservative management but if unsuccessful will need operative intervention. I think the goal would be to wait a few weeks to let the inflammation go down and then do diagnostic laparoscopy. If worsening will need intervention at that time. Clinical Quality Measures DVT/VTE Risk/Contraindication: Risk Factor Score Per Nursin RFS Level Per Nursing on Admit: 2=Moderate SARAH BEAVER DO Nov 12, 2017 12:18
[2017-11-13] MEDS: fentaNYL INJECTION 100 MCG/2 ML AMP IV PRN ×3 (00:50→04:37)
[2017-11-13 00:59] VITALS: BP 109/65
[2017-11-13] MEDS: NS IV 1000 ML 1,000 ML IV SCH ×3 (01:07→21:15)
[2017-11-13 04:00] VITALS: BP 117/58
[2017-11-13 05:43] LABS: HEMOGLOBIN 11.5 G/DL (11.5-16.0); MEAN PLATELET VOLUME 10.5 FL (7.4-10.4); RED BLOOD COUNT 3.79 10^6/uL (4.35-5.85); RED CELL DISTRIBUTION WIDTH 13.3 % (10.0-14.5); WHITE BLOOD COUNT 10.5 10^3/uL (4.3-11.0)
[2017-11-13] MEDS: PIPERACILLIN/TAZO 4.5 GM/NS 100 ML IV SCH ×6 (05:55→21:25)
[2017-11-13 06:07] LABS: ALANINE AMINOTRANSFERASE 87 U/L (0-55); ALBUMIN 3.1 GM/DL (3.2-4.5); ALKALINE PHOSPHATASE 105 U/L (40-136); BUN/CREATININE RATIO 18; CALCIUM 7.3 MG/DL (8.5-10.1); CARBON DIOXIDE 17 MMOL/L (21-32); CHLORIDE 115 MMOL/L (98-107); CREATININE SERUM 0.61 MG/DL (0.60-1.30); GFR ESTIMATED > 60; GLUCOSE 82 MG/DL (70-105); POTASSIUM 3.1 MMOL/L (3.6-5.0); SODIUM 143 MMOL/L (135-145); TOTAL PROTEIN 5.4 GM/DL (6.4-8.2)
[2017-11-13 08:00] VITALS: BP 114/71
[2017-11-13] MEDS ORDERED: PANT40TA3 PO (11:21)
[2017-11-13] MEDS ORDERED: DULO60CA58 PO (11:21)
[2017-11-13 12:00] VITALS: BP 124/75
--- NOTE | 2017-11-13 12:27 | Progress Note ---
Subjective Time Seen by a Provider: 11:36 Subjective/Events-last exam Pt seen and examined, looks minimally ill. She states she has pain on the right side and actually is ready for surgery. States she hasn't eaten since Monday. Review of Systems General: No Chills; Night Sweats, Fatigue Pulmonary: No Dyspnea, No Cough Cardiovascular: No: Chest Pain, Palpitations Gastrointestinal: Abdominal Pain Objective Exam Vital Signs Date Time Temp Pulse Resp B/P (MAP) Pulse Ox O2 Delivery O2 Flow Rate FiO2 11/13/17 08:00 98.5 88 20 114/71 (85) 98 Room Air 11/13/17 08:00 Room Air 11/13/17 07:00 94 11/13/17 04:00 98.3 98 16 117/58 (77) 96 Room Air 11/13/17 01:00 103 11/13/17 00:59 99.2 93 16 109/65 (80) 95 Room Air 11/12/17 20:40 100.8 100 16 103/63 (76) 97 Room Air 11/12/17 20:00 98 Room Air 11/12/17 19:00 101 11/12/17 16:50 100.5 104 16 122/71 (88) 94 Room Air 11/12/17 13:00 89 I & O 11/13/17 07:00 Intake Total 3080 ml Output Total 1350 ml Balance 1730 ml Capillary Refill : Less Than 3 SecondsLess Than 3 Seconds General Appearance: WD/WN, Anxious, Mild Distress HEENT: PERRL/EOMI, Normal ENT Inspection Neck: Non Tender, Supple Respiratory: Chest Non Tender, No Accessory Muscle Use, No Respiratory Distress Cardiovascular: Regular Rate, Rhythm Gastrointestinal: normal bowel sounds, soft, no organomegaly, no pulsatile mass , tenderness (right lower quadrant tenderness and RUQ to even mild pressure ) Extremity: Normal Inspection, Non Tender Neurologic/Psychiatric: Alert, Oriented x3, No Motor/Sensory Deficits, Normal Mood/Affect, grain receiver II-XII Norm as Tested Skin: Pallor Results Lab Laboratory Tests 11/13/17 05:05: White Blood Count 10.5, Red Blood Count 3.79L, Hemoglobin 11.5, Hematocrit 33L, Mean Corpuscular Volume 88, Mean Corpuscular Hemoglobin 30, Mean Corpuscular Hemoglobin Concent 35, Red Cell Distribution Width 13.3, Platelet Count 136, Mean Platelet Volume 10.5H, Sodium Level 143, Potassium Level 3.1L, Chloride Level 115H, Carbon Dioxide Level 17L, Anion Gap 11, Blood Urea Nitrogen 11, Creatinine 0.61, Estimat Glomerular Filtration Rate > 60, BUN/Creatinine Ratio 18, Glucose Level 82, Calcium Level 7.3L, Corrected Calcium 8.0L, Total Bilirubin 1.0, Aspartate Amino Transf (AST/SGOT) 45H, Alanine Aminotransferase ( ALT/SGPT) 87H, Alkaline Phosphatase 105, Total Protein 5.4L, Albumin 3.1L Assessment/Plan Assessment/Plan Assessment/Plan Right lower quadrant abdominal pain 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 Plan is for laparoscopy possible laparotomy with possible bowel resection. Pt states she is actually ready for this and wants to do it. "We gotta fix this". Risks and complications discussed including but not limited to pain, bleeding, infection, scar and damage to bowel. Clinical Quality Measures DVT/VTE Risk/Contraindication: Risk Factor Score Per Nursin RFS Level Per Nursing on Admit: 2=Moderate NORBERT COE DO Nov 13, 2017 12:27
[2017-11-13] MEDS ORDERED: ONDANSETRON 4 MG/2 ML (SDV) Z0FRAN ONE (12:42)
[2017-11-13] MEDS ORDERED: DEXAMETHASONE 10 MG/ML (DECADRON) 1 ML VIAL ONE (12:42)
[2017-11-13] MEDS ORDERED: proPOfol 200 MG/20 ML (DIPRIVAN) VIAL IV ONE (12:42)
[2017-11-13] MEDS ORDERED: MIDAZOLAM 2 MG/2 ML (VERSED) VIAL ONE (12:42)
[2017-11-13] MEDS ORDERED: SEVOFLURANE (ULTANE) 15 ML INHAL SOLN ONE ×10 (12:42→17:40)
[2017-11-13] MEDS ORDERED: LIDOCAINE PF 2% 2 ML (XYLOCAINE) VIAL ONE (12:42)
[2017-11-13] MEDS ORDERED: fentaNYL INJECTION 100 MCG/2 ML AMP ONE ×2 (12:42→14:59)
[2017-11-13] MEDS ORDERED: ROCURONIUM 10 MG/ML 5 ML SYRINGE IV ONE (12:42)
[2017-11-13] MEDS ORDERED: LIDOCAINE/EPI 1%-1:200,000 (XYLOCAINE) 10 ML VIAL ONE (13:03)
[2017-11-13] MEDS ORDERED: PHENYLEPHRINE 100 MCG/ML 10 ML (ANESTHESIA) SYR ONE (14:19)
[2017-11-13] MEDS: LACTATED RINGERS 1,000 ML IV PRN ×3 (14:45→16:45)
[2017-11-13] MEDS ORDERED: morphine INJ 10 MG/ML 1ML (SYR OR VIAL) ONE (15:10)
[2017-11-13] MEDS ORDERED: MEPERIDINE (DEMEROL) INJ 50 MG/ML ONE (15:10)
[2017-11-13] MEDS ORDERED: LACTATED RINGERS 1,000 ML IV ONE (16:14)
[2017-11-13] MEDS ORDERED: BUPIVACAINE 0.5% 30 ML (SENSORCAINE) VIAL ONE ×2 (16:48→17:42)
--- NOTE | 2017-11-13 16:57 | Consultation (CHS) ---
HPI History of Present Illness: 47 yo female admitted after coming to hospital with abdominal pain and found to have inflammation and possible small perforation at site of prior ileocecal anastomosis s/p carcinoid resection a few months ago. She also has depression and anxiety which she takes Cymbalta and clonazepam for, but denies other chronic conditions. She states that her pain medicine is wearing off very quickly but otherwise denies concerns. Date seen by provider: Nov 13, 2017 Time Seen by Provider: 09:50 Attending Physician Rogelio Clement DO [facility] [place] Consult Date of Admission Nov 11, 2017 at 10:30 pm Home Medications Home Medications Reviewed patient Home Medication Reconciliation performed by pharmacy medication reconciliations manufacturing process technician and/or nursing. Patients Allergies have been reviewed. Allergies Coded Allergies: Sulfa (Sulfonamide Antibiotics) (Verified Allergy, Mild, RASH, 11/11/17) acetaminophen (Verified Adverse Reaction, Mild, N/V, 11/05/12) oxycodone HCl (Verified Adverse Reaction, Mild, N/V, 11/05/12) [id number]-[id number] Hx Patient Social History Alcohol Use: Denies Use Recreational Drug Use: No Smoking Status: Former Smoker Former smoker/When Quit: May 29, 2005 Type Used: Cigars 2nd Hand Smoke Exposure: No Recent Foreign Travel: No Contact w/other who traveled: No Recent Hopitalizations: Yes Recent Infectious Disease Expo: No Physical Abuse Screen: No Sexual Abuse: No Immunizations Up To Date Tetanus Booster (TDap): Less than 5yrs Date of Influenza Vaccine: Nov 06, 2017 Past Medical History Ileal Carcinoid Tumor, s/p resection Major Depression Anxiety Pelletier Syndrome IBS Single Kidney (left) Polycystic Kidney Disease Bilateral Hearing Loss Vitamin D Deficiency Hx Hepatitis A Kidney Stones Arthritis Past Surgical Hx Hiatal Hernia Repair Cholecystectomy Tonsillectomy Appendectomy Right Nephrectomy - 1996 Bilateral Myringotomy Tubes Colonoscopy Ventral Hernia Repair - July [address] Clement Carcinoid Tumor Resection - July [address] Clement Family Medical History Significant Family History: Cancer, Hypertension Family History: SKIN CANCER 19 FATHER Review of Systems ([facility]) Constitutional: No fever EENTM: no symptoms reported Respiratory: no symptoms reported Cardiovascular: no symptoms reported Gastrointestinal: see HPI Genitourinary: no symptoms reported Musculoskeletal: no symptoms reported Skin: no symptoms reported Psychiatric/Neurological: Anxiety, Depressed Reviewed Test Results Reviewed Test Results Lab Laboratory Tests Test 11/11/17 21:05 11/11/17 21:19 11/12/17 03:10 11/13/17 05:05 Range/Units Urine Color YELLOW Urine Clarity CLEAR Urine pH 5 5-9 Urine Specific [place] 1.020 1.016-1.022 Urine Protein 1+ H NEGATIVE Urine Glucose (UA) NEGATIVE NEGATIVE Urine Ketones NEGATIVE NEGATIVE Urine Nitrite NEGATIVE NEGATIVE Urine Bilirubin NEGATIVE NEGATIVE Urine Urobilinogen NORMAL NORMAL MG/DL Urine Leukocyte Esterase 1+ H NEGATIVE Urine RBC (Auto) NEGATIVE NEGATIVE Urine RBC NONE /HPF Urine WBC 0-2 /HPF Urine Squamous Epithelial Cells RARE /HPF Urine Crystals NONE /LPF Urine Bacteria NONE /HPF Urine Casts NONE /LPF Urine Mucus NEGATIVE /LPF Urine Culture Indicated NO White Blood Count 9.4 11.9 H 10.5 4.3-11.0 10^3/uL Red Blood Count 4.35 4.47 3.79 L 4.35-5.85 10^6/uL Hemoglobin 13.1 12.8 11.5 11.5-16.0 G/DL Hematocrit 37 38 33 L 35-52 % Mean Corpuscular Volume 85 85 88 80-99 FL Mean Corpuscular Hemoglobin 30 29 30 25-34 PG Mean Corpuscular Hemoglobin Concent 36 34 35 32-36 G/DL Red Cell Distribution Width 12.8 13.1 13.3 10.0-14.5 % Platelet Count 168 163 136 130-400 10^3/uL Mean Platelet Volume 9.9 10.0 10.5 H 7.4-10.4 FL Neutrophils (%) (Auto) 85 H 91 H 42-75 % Lymphocytes (%) (Auto) 9 L 3 L 12-44 % Monocytes (%) (Auto) 6 6 0-12 % Eosinophils (%) (Auto) 0 0 0-10 % Basophils (%) (Auto) 0 0 0-10 % Neutrophils # (Auto) 8.0 H 10.9 H 1.8-7.8 X 10^3 Lymphocytes # (Auto) 0.8 L 0.4 L 1.0-4.0 X 10^3 Monocytes # (Auto) 0.6 0.7 0.0-1.0 X 10^3 Eosinophils # (Auto) 0.0 0.0 0.0-0.3 10^3/uL Basophils # (Auto) 0.0 0.0 0.0-0.1 10^3/uL Sodium Level 141 141 143 135-145 MMOL/L Potassium Level 3.8 4.2 3.1 L 3.6-5.0 MMOL/L Chloride Level 108 H 110 H 115 H 98-107 MMOL/L Carbon Dioxide Level 24 23 17 L 21-32 MMOL/L Anion Gap 9 8 11 5-14 MMOL/L Blood Urea Nitrogen 19 H 15 11 7-18 MG/DL Creatinine 0.95 0.77 0.61 0.60-1.30 MG/DL Estimat Glomerular Filtration Rate > 60 > 60 > 60 BUN/Creatinine Ratio 20 19 18 Glucose Level 99 123 H 82 70-105 MG/DL Calcium Level 9.3 8.1 L 7.3 L 8.5-10.1 MG/DL Corrected Calcium 9.2 8.5 8.0 L 8.5-10.1 MG/DL Total Bilirubin 0.6 1.7 H 1.0 0.1-1.0 MG/DL Aspartate Amino Transf (AST/SGOT) 16 103 H 45 H 5-34 U/L Alanine Aminotransferase (ALT/SGPT) 15 60 H 87 H 0-55 U/L Alkaline Phosphatase 75 91 105 40-136 U/L Total Protein 6.5 5.6 L 5.4 L 6.4-8.2 GM/DL Albumin 4.1 3.5 3.1 L 3.2-4.5 GM/DL Amylase Level 113 25-125 U/L Lipase 34 8-78 U/L Neutrophils % (Manual) 96 % Lymphocytes % (Manual) 4 % Monocytes % (Manual) 3 % Blood Morphology Comment NORMAL Test 11/13/17 13:21 Range/Units Urine Test NEGATIVE NEGATIVE Radiology CT abdomen/pelvis 11/12/17 IMPRESSION: Extraluminal air and increasing inflammatory changes about the bowel anastomosis in the right lower quadrant suspicious for anastomotic leak and/or abscess. Physical Exam-([facility]) Physical Exam Vital Signs VS - Last 72 Hours, by Label 11/11/17 11/11/17 11/11/17 11/11/17 21:05 23:00 23:15 23:30 Temp 98.1 98.4 Pulse 81 83 80 87 Resp 16 18 18 B/P (MAP) 139/78 (98) 146/86 (106) 136/80 (98) 130/81 (97) Pulse Ox 99 99 100 98 O2 Delivery Room Air Room Air 11/11/17 11/11/17 11/12/17 11/12/17 23:30 23:45 00:00 00:15 Pulse 72 85 77 B/P (MAP) 118/75 (89) 124/85 (98) 144/83 (103) Pulse Ox 98 100 100 O2 Delivery Room Air Room Air Room Air Room Air 11/12/17 11/12/17 11/12/17 11/12/17 00:45 01:15 01:34 02:15 Pulse 91 81 76 89 B/P (MAP) 117/78 (91) 125/80 (95) 115/74 (88) Pulse Ox 95 100 O2 Delivery Room Air Room Air Room Air 11/12/17 11/12/17 11/12/17 11/12/17 03:15 04:15 05:15 06:15 Pulse 86 72 90 95 B/P (MAP) 104/67 (79) 104/69 (81) 100/66 (77) 95/63 (74) Pulse Ox 97 99 94 95 O2 Delivery Room Air Room Air Room Air 11/12/17 11/12/17 11/12/17 11/12/17 07:00 07:25 08:00 13:00 Pulse 88 90 89 B/P (MAP) 102/66 (78) Pulse Ox 98 98 O2 Delivery Room Air Room Air 11/12/17 11/12/17 11/12/17 11/12/17 16:50 19:00 20:00 20:40 Temp 100.5 100.8 Pulse 104 101 100 Resp 16 16 B/P (MAP) 122/71 (88) 103/63 (76) Pulse Ox 94 98 97 O2 Delivery Room Air Room Air Room Air 11/13/17 11/13/17 11/13/17 11/13/17 00:59 01:00 04:00 07:00 Temp 99.2 98.3 Pulse 93 103 98 94 Resp 16 16 B/P (MAP) 109/65 (80) 117/58 (77) Pulse Ox 95 96 O2 Delivery Room Air Room Air 11/13/17 11/13/17 11/13/17 11/13/17 08:00 08:00 12:00 13:00 Temp 98.5 99.0 Pulse 88 84 94 Resp 20 20 B/P (MAP) 114/71 (85) 124/75 (91) Pulse Ox 98 99 O2 Delivery Room Air Room Air Room Air Capillary Refill : Less Than 3 SecondsLess Than 3 Seconds General Appearance: no apparent distress Respiratory: lungs clear, normal breath sounds Cardiovascular: regular rate, rhythm, no murmur Neurologic/Psychiatric: normal mood/affect Skin: normal color, warm/dry Assessment/Plan Assessment/Plan (1) Bowel perforation Status: Acute Assessment & Plan: Management per Surgery, plan for OR tomorrow per note review. (2) Major depressive disorder in partial remission Status: Chronic Assessment & Plan: Continue duloxetine when able to take oral Qualifiers: Qualified Codes: F33.41 - Major depressive disorder, recurrent, in partial remission (3) Anxiety Status: Chronic Assessment & Plan: Continue clonazepam when able to take oral. If severe symptoms occur, could consider IV use. Clinical Quality Measures DVT/VTE Risk/Contraindication: Risk Factor Score Per Nursin RFS Level Per Nursing on Admit: 2=Moderate VELIA DUBOSE MD Nov 13, 2017 4:57 pm
--- NOTE | 2017-11-13 17:09 | Progress Note-Post Operative ---
Post-Operative Progess Note Surgeon (s)/Molasses Preparer (s) Surgeon NORBERT COE DO Molasses Preparer: Ana Pre-Operative Diagnosis Microperforation r/o abscess Post-Operative Diagnosis Abscess with Phlegmon adhesions Internal hernia Procedure & Operative Findings Date of Procedure 11/13/17 Procedure Performed/Findings 1. Partial Colectomy 2. Small bowel resection 3. OTILIA > 2hrs Anesthesia Type GET Estimated Blood Loss Estimated blood loss (mL): 300ml Specimens/Packing Specimens Removed 1. Portion of Colon and terminal ileum 2. Small bowel 3. Phlegmon NORBERT COE DO Nov 13, 2017 17:09
[2017-11-13] MEDS ORDERED: GLYCOPYRROLATE 0.2 MG/ML (ROBINUL) 2 ML VIAL ONE (17:42)
[2017-11-13] MEDS ORDERED: NEOSTIGMINE 1 MG/ML 5 ML SYRINGE ONE (17:42)
[2017-11-13] MEDS ORDERED: MEPERIDINE (DEMEROL) INJ 50 MG/ML IVP ONE (17:45)
[2017-11-13] MEDS ORDERED: fentaNYL INJECTION 100 MCG/2 ML AMP IVP ONE (17:45)
[2017-11-13] MEDS ORDERED: ONDANSETRON 4 MG/2 ML (SDV) Z0FRAN IVP PRN (17:45)
[2017-11-13] MEDS ORDERED: morphine INJ 10 MG/ML 1ML (SYR OR VIAL) IVP ONE (17:45)
[2017-11-13 20:35] VITALS: BP 132/70
[2017-11-13] MEDS: clonazePAM 1 MG (KlonoPIN) TAB PO SCH (21:00)
[2017-11-13] MEDS ORDERED: NON-FORMULARY MEDICATION 1 EA EA (Clonazepam 1 MG) PO SCH (21:00)
[2017-11-13] MEDS: DULoxetine 30 MG (CYMBALTA) CAP PO SCH (21:00)
[2017-11-13] MEDS ORDERED: NON-FORMULARY MEDICATION 1 EA EA (Duloxetine HCl 60 MG) PO SCH (21:00)
[2017-11-13] MEDS: morphine INJ 4 MG/ML 1 ML (VIAL/SYRINGE) IVP PRN (21:59)
--- NOTE | 2017-11-13 22:44 | OPERATIVE REPORT ---
DATE OF SERVICE: PREOPERATIVE DIAGNOSES: 1. Microperforation, possible abscess. 2. History of carcinoid disease. 3. Right lower quadrant pain. POSTOPERATIVE DIAGNOSES: 1. Abscess with phlegmon. 2. Adhesions. 3. History of carcinoid disease. PROCEDURES: 1. Partial colectomy. 2. Small bowel resection. 3. Lysis of adhesions for greater than 2 hours. SURGEON: Norbert Clement DO. SHEET FOLDER: John Perez DO. ANESTHESIA: General endotracheal tube. SPECIMENS: 1. Portion of colon and terminal ileum. 2. Portion of small bowel. 3. Phlegmon. BLOOD LOSS: Approximately 300 mL. URINE OUTPUT: 400 mL. FLUIDS: Per anesthesia. POSTOPERATIVE CONDITION: Stable. INDICATION FOR PROCEDURE: The patient is a 47-year-old female who unfortunately back at the end of July had this procedure, found to have a carcinoid that was stage IV, had done well, but then about a month ago had an episode of right lower quadrant pain. A CAT scan showed inflammation. There was no bowel obstruction and she improved and then she came in on Monday for again right lower quadrant pain, this time showed microperforation. Discussed with the patient that this could be an abscess or some type of anastomotic leak and that she wanted just to get this fixed. FINDINGS: The patient actually had extensive adhesions. It took us 2 hours to lyse all the adhesions. She had an internal hernia as well. The actual anastomosis looked good. The phlegmon and abscess were behind where the anastomosis was, unsure what the cause of this. All the tissue sent to pathology. PROCEDURE NOTE: After informed consent was obtained, the patient was brought to the operating room, placed on the table in supine position. She was sterilely prepped and draped in normal fashion. First started tray by making an incision at the upper portion of her previous incision. First infiltrated with local, then made an incision with a #11 blade, carried down through the skin and subcutaneous tissue, then deepened down to subcutaneous tissue with Bovie electrocautery down to the fascia. The fascia was then incised and then bluntly entered the abdomen. First, we were attempting diagnostic laparoscopy with possible exploratory laparotomy, put the scope in. There are too many adhesions. Looked around, tried to take these down. It was just impossible, so at this point, we then elected to proceed with open procedure. We opened the incision, increasing it superiorly and inferiorly, protecting the bowel with a finger in the inside and then going through the fascia with Bovie electrocautery. Upon entry, there were adhesions of the omentum as well as small intestine was stuck up to the abdominal wall, started carefully taking all these adhesions down, first freeing up the peritoneum and then freeing up the pericolic gutters, then started running the bowel and freeing up adhesions in the bowel, so we could run the bowel and finally the hardest part was getting the small intestine out of the pelvis. Also while doing the right pericolic gutter, encountered an abscess. We were using finger fracture as well as sharp dissection with Metzenbaum scissors and Bovie electrocautery. Finally, once we were able to get all the adhesions and all the intestine freed up, it took us over 2 hours just to free this up. Once we were able to do this, looked at the anastomosis and the anastomosis actually looked good. There did not appear to be any leak and the phlegmon and abscess were actually behind this. Central portion of the phlegmon off as a specimen, then elected to resect this anastomosis just because she had been lying in the phlegmon, wanted to remove this, made a defect in the mesentery of the large intestine. I had actually freed up the right pericolic gutter so that the whole large intestine could move it, was able to be pulled into the midline. At this point, then made a defect in the mesentery under the large intestine, placed a MELVIN-75 clamp and fired, thereby transecting and then came across the terminal ileum; picked a spot which looked like healthy terminal ileum, made another defect in the mesentery, clamped and fired thereby transecting and then took this portion of intestine off using LigaSure coming across the mesentery clamping, coagulating and transecting in this fashion taking this off, then made a defect at the tinea of the large intestine as well as the antimesenteric border of the small intestine with a Bovie electrocautery, placed either side of the MELVIN-75 in here, brought them together, clamped and fired thereby creating a [id number] functional end-to-end anastomosis. Closed the opening with a TA-65. The mesentery closed with a 3-0 Vicryl running suture. Also during the lysis of adhesions, had noted an internal hernia, actually a piece of small intestine coming up under the anastomosis and stuck on the other side. This looked okay. This was the small intestine that was down in the pelvis, had a little bit of serosal tear and looked a little bit "ratty", so I elected to do a small bowel resection to remove this part of the small bowel, made defects in the antimesenteric border, placed MELVIN inside either end, created a [id number] functional end-to-end anastomosis and then used another MELVIN-75 to come across this and then cut this off and then used a LigaSure to take down the mesentery. This was also passed off the table. Closed this mesentery with another 3-0 Vicryl. At this point, I then copiously irrigated with 2 liters of warm normal saline, suctioned this out. While taking down the adhesions, there had been a slight tear of the liver. I had packed this during the case and this had stopped at the end. Just to be safe, placed a Surgicel up here. Elected to place a Surgicel across the area where the phlegmon was and then placed some Interceed down in the pelvis to try and hopefully prevent adhesions down in the pelvis, had ran the rest of the small intestine and the small intestine looked good, did not see any other obvious carcinoid nodules or any other pathology and at this point elected to close the incision, closing the fascia with a #1 double-stranded PDS suture, one from the superior portion and one from the inferior portion, running together and meet in the middle and then tying, irrigated the incision with saline and then closed the skin with ike. Area was cleaned and dried. Dressing placed. The patient was then transferred to recovery room in stable condition. Sponge, instrument and needle count correct at the end of the case. Dr. Perez assisted by making incisions, closing incisions, holding anatomy, identifying anatomy. Job ID: [id number] DocumentID: [id number] Dictated Date: 11/13/2017 18:26:43 Fiber Heel Piece Shaper Date: 11/13/2017 22:44:07 Dictated By: NORBERT CLEMENT DO MTDBarbara
[2017-11-14] VITALS: BP 117/70
[2017-11-14 04:00] VITALS: BP 135/95
[2017-11-14] MEDS: morphine INJ 4 MG/ML 1 ML (VIAL/SYRINGE) IVP PRN ×3 (04:01→12:51)
[2017-11-14] MEDS: PIPERACILLIN/TAZO 4.5 GM/NS 100 ML IV SCH ×6 (04:51→20:20)
[2017-11-14] MEDS: PANTOPRAZOLE 40 MG (PROTONIX) TAB PO SCH (06:02)
[2017-11-14 06:44] LABS: HEMOGLOBIN 10.9 G/DL (11.5-16.0); MEAN PLATELET VOLUME 10.6 FL (7.4-10.4); RED BLOOD COUNT 3.74 10^6/uL (4.35-5.85); RED CELL DISTRIBUTION WIDTH 13.9 % (10.0-14.5); WHITE BLOOD COUNT 10.8 10^3/uL (4.3-11.0)
[2017-11-14 07:08] LABS: ALANINE AMINOTRANSFERASE 71 U/L (0-55); ALKALINE PHOSPHATASE 97 U/L (40-136); BILIRUBIN,TOTAL 0.6 MG/DL (0.1-1.0); BUN/CREATININE RATIO 17; CALCIUM 7.3 MG/DL (8.5-10.1); CARBON DIOXIDE 18 MMOL/L (21-32); CHLORIDE 113 MMOL/L (98-107); CREATININE SERUM 0.64 MG/DL (0.60-1.30); GFR ESTIMATED > 60; GLUCOSE 121 MG/DL (70-105); POTASSIUM 3.4 MMOL/L (3.6-5.0); SODIUM 141 MMOL/L (135-145); TOTAL PROTEIN 5.4 GM/DL (6.4-8.2)
--- NOTE | 2017-11-14 07:32 | Anesthesia-General Post-Op ---
General Patient Condition Mental Status/LOC: Same as Preop Cardiovascular: Satisfactory Nausea/Vomiting: Absent Respiratory: Satisfactory Pain: Controlled Complications: Absent Post Op Complications Complications None Follow Up Care/Instructions Patient Instructions None needed. Anesthesia/Patient Condition Patient Condition Patient is doing well, no complaints, stable vital signs, no apparent adverse anesthesia problems. No complications reported per nursing. D/C home per [facility] [place] Criteria: LAURA Bucio CRNA Nov 14, 2017 07:32
[2017-11-14 08:36] VITALS: BP 128/69
[2017-11-14] MEDS: NS IV 1000 ML 1,000 ML IV SCH ×4 (08:51→22:42)
--- NOTE | 2017-11-14 10:59 | Progress Note (SOAP) ---
Subjective Subjective/Events-last exam Afebrile last 24 hours. Underwent open colon resection and lysis of adhesions yesterday evening. States she is doing okay but feels pain medicine wears off quickly. No flatus yet. Review of Systems Date Seen by Provider: Nov 14, 2017 Time Seen by Provider: 10:20 Objective Exam Last Set of Vital Signs Vital Signs Date Time Temp Pulse Resp B/P (MAP) Pulse Ox O2 Delivery O2 Flow Rate FiO2 11/14/17 08:36 99.1 84 18 128/69 (88) 92 Room Air 11/14/17 04:00 3.00 Capillary Refill : Less Than 3 SecondsLess Than 3 Seconds I&O Intake and Output 11/14/17 00:00 Intake Total 3000 ml Output Total 1850 ml Balance 1150 ml Intake Oral 0 ml IV Total 3000 ml Output Urine Total 1550 ml Estimated Blood Loss 300 ml # Bowel Movements 1 Daily Weight Change No General: Alert, No Acute Distress Lungs: Clear to Auscultation, Normal Air Movement Heart: Regular Rate, No Murmurs Neuro: Normal Speech Psych/Mental Status: Mood NL Results/Procedures Lab Laboratory Tests 11/13/17 13:21: Urine Test NEGATIVE 11/14/17 05:19: White Blood Count 10.8, Red Blood Count 3.74L, Hemoglobin 10.9L, Hematocrit 33L , Mean Corpuscular Volume 89, Mean Corpuscular Hemoglobin 29, Mean Corpuscular Hemoglobin Concent 33, Red Cell Distribution Width 13.9, Platelet Count 188, Mean Platelet Volume 10.6H, Sodium Level 141, Potassium Level 3.4L, Chloride Level 113H, Carbon Dioxide Level 18L, Anion Gap 10, Blood Urea Nitrogen 11, Creatinine 0.64, Estimat Glomerular Filtration Rate > 60, BUN/Creatinine Ratio 17, Glucose Level 121H, Calcium Level 7.3L, Corrected Calcium 8.1L, Total Bilirubin 0.6, Aspartate Amino Transf (AST/SGOT) 32, Alanine Aminotransferase ( ALT/SGPT) 71H, Alkaline Phosphatase 97, Total Protein 5.4L, Albumin 3.0L Radiology CT abdomen/pelvis 11/12/17 IMPRESSION: Extraluminal air and increasing inflammatory changes about the bowel anastomosis in the right lower quadrant suspicious for anastomotic leak and/or abscess. Assessment/Plan Assessment/Plan (1) Bowel perforation Status: Acute Assessment & Plan: Management per Surgery, plan for OR tomorrow per note review. 11/14 s/p open partial colectomy, partial small bowel resection and lysis of adhesions on 11/13 (2) Major depressive disorder in partial remission Status: Chronic Assessment & Plan: Continue duloxetine when able to take oral Qualifiers: Qualified Codes: F33.41 - Major depressive disorder, recurrent, in partial remission (3) Anxiety Status: Chronic Assessment & Plan: Continue clonazepam when able to take oral. If severe symptoms occur, could consider IV use. Clinical Quality Measures DVT/VTE Risk/Contraindication: Risk Factor Score Per Nursin RFS Level Per Nursing on Admit: 2=Moderate VELIA DUBOSE MD Nov 14, 2017 10:59 am
[2017-11-14 12:00] VITALS: BP 117/64
--- NOTE | 2017-11-14 13:58 | Progress Note ---
Subjective Time Seen by a Provider: 12:45 Subjective/Events-last exam Pt seen and examined, her main complaint is of pain and pain meds not lasting long enough. Pt denies nausea, flatus or BM. Review of Systems General: No Chills, No Night Sweats; Fatigue, Malaise Pulmonary: No Dyspnea, No Cough Gastrointestinal: Abdominal Pain Objective Exam Vital Signs Date Time Temp Pulse Resp B/P (MAP) Pulse Ox O2 Delivery O2 Flow Rate FiO2 11/14/17 12:00 98.7 80 18 117/64 (81) 97 Room Air 11/14/17 08:36 99.1 84 18 128/69 (88) 92 Room Air 11/14/17 07:00 85 11/14/17 04:00 98.7 89 20 135/95 (108) 98 Nasal Cannula 3.00 11/14/17 01:00 85 11/14/17 00:00 98.7 88 20 117/70 (86) 96 Nasal Cannula 3.00 11/13/17 21:55 83 11/13/17 20:35 98.7 90 16 132/70 (90) 96 Nasal Cannula 3.00 11/13/17 20:00 Nasal Cannula 2.00 I & O 11/14/17 07:00 Intake Total 3000 ml Output Total 2000 ml Balance 1000 ml Capillary Refill : Less Than 3 SecondsLess Than 3 Seconds General Appearance: WD/WN, Mild Distress HEENT: PERRL/EOMI Neck: Supple Respiratory: Lungs Clear, No Accessory Muscle Use, No Respiratory Distress Cardiovascular: Regular Rate, Rhythm Gastrointestinal: soft, tenderness (mostly at incision) Extremity: No Calf Tenderness Neurologic/Psychiatric: Alert, Oriented x3 Skin: Pallor Results Lab Laboratory Tests 11/14/17 05:19: White Blood Count 10.8, Red Blood Count 3.74L, Hemoglobin 10.9L, Hematocrit 33L , Mean Corpuscular Volume 89, Mean Corpuscular Hemoglobin 29, Mean Corpuscular Hemoglobin Concent 33, Red Cell Distribution Width 13.9, Platelet Count 188, Mean Platelet Volume 10.6H, Sodium Level 141, Potassium Level 3.4L, Chloride Level 113H, Carbon Dioxide Level 18L, Anion Gap 10, Blood Urea Nitrogen 11, Creatinine 0.64, Estimat Glomerular Filtration Rate > 60, BUN/Creatinine Ratio 17, Glucose Level 121H, Calcium Level 7.3L, Corrected Calcium 8.1L, Total Bilirubin 0.6, Aspartate Amino Transf (AST/SGOT) 32, Alanine Aminotransferase ( ALT/SGPT) 71H, Alkaline Phosphatase 97, Total Protein 5.4L, Albumin 3.0L Assessment/Plan Assessment/Plan Assessment/Plan S/P Partial colectomy, SB resection and extensive OTILIA Pt still having abdominal pain and states the morphine is not lasting long enough; although, she only asked for it after about 4 hours. She is drinking water without problems. Encouraged to ambulate and use IS. Will switch to Dilaudid [employer]. Await pathology. Clinical Quality Measures DVT/VTE Risk/Contraindication: Risk Factor Score Per Nursin RFS Level Per Nursing on Admit: 2=Moderate NORBERT COE DO Nov 14, 2017 13:58
[2017-11-14] MEDS ORDERED: HYDROmorphone PF INJECTION 20 MG in NS (IVPB) 100 ML IV PRN (14:00)
[2017-11-14 15:40] VITALS: BP 122/66
[2017-11-14 19:25] VITALS: BP 121/71
[2017-11-14] MEDS: clonazePAM 1 MG (KlonoPIN) TAB PO SCH (22:42)
[2017-11-14] MEDS: DULoxetine 30 MG (CYMBALTA) CAP PO SCH ×2 (22:42→23:10)
[2017-11-15] VITALS: BP 130/76
[2017-11-15 04:00] VITALS: BP_SYST 120; BP_SYST 132; BP_DIAS 64; BP_DIAS 67
[2017-11-15] MEDS: PIPERACILLIN/TAZO 4.5 GM/NS 100 ML IV SCH ×2 (05:21)
[2017-11-15] MEDS: PANTOPRAZOLE 40 MG (PROTONIX) TAB PO SCH (05:21)
[2017-11-15] MEDS: NS IV 1000 ML 1,000 ML IV SCH ×2 (05:21→19:39)
[2017-11-15 05:58] LABS: HEMOGLOBIN 9.7 G/DL (11.5-16.0); RED BLOOD COUNT 3.2 10^6/uL (4.35-5.85); RED CELL DISTRIBUTION WIDTH 13.3 % (10.0-14.5); WHITE BLOOD COUNT 7.6 10^3/uL (4.3-11.0)
[2017-11-15 06:22] LABS: ALANINE AMINOTRANSFERASE 43 U/L (0-55); ALBUMIN 2.8 GM/DL (3.2-4.5); ALKALINE PHOSPHATASE 87 U/L (40-136); BILIRUBIN,TOTAL 0.5 MG/DL (0.1-1.0); BUN/CREATININE RATIO 13; CARBON DIOXIDE 20 MMOL/L (21-32); CHLORIDE 112 MMOL/L (98-107); CREATININE SERUM 0.54 MG/DL (0.60-1.30); GFR ESTIMATED > 60; GLUCOSE 98 MG/DL (70-105); POTASSIUM 2.9 MMOL/L (3.6-5.0); SODIUM 141 MMOL/L (135-145)
[2017-11-15 08:40] VITALS: BP 143/81
[2017-11-15] MEDS ORDERED: PROMETHAZINE INJ 25 MG/ML (PHENERGAN) AMP IVP PRN (09:15)
--- NOTE | 2017-11-15 09:19 | Progress Note ---
Subjective Time Seen by a Provider: 09:08 Subjective/Events-last exam Pt seen and examined, looks sick; she states she is nauseous. Wants to throw up because she thinks it will make her feel better. Denies flatus or BM. Review of Systems General: No Chills, No Night Sweats Pulmonary: No Dyspnea, No Cough Cardiovascular: No: Chest Pain Gastrointestinal: Nausea, Vomiting Objective Exam Vital Signs Date Time Temp Pulse Resp B/P (MAP) Pulse Ox O2 Delivery O2 Flow Rate FiO2 11/15/17 08:40 98.9 101 20 143/81 (101) 93 Room Air 11/15/17 07:00 103 11/15/17 04:00 98.9 83 20 132/64 (86) 100 Room Air 11/15/17 04:00 99.1 98 20 120/67 (84) 95 Room Air 11/15/17 01:00 100 11/15/17 00:00 98.9 80 20 130/76 (94) 95 Room Air 11/14/17 19:45 Room Air 11/14/17 19:25 98.5 77 18 121/71 (88) 98 Room Air 11/14/17 19:00 84 11/14/17 17:07 16 11/14/17 15:44 Nasal Cannula 3.00 11/14/17 15:40 99.0 85 16 122/66 (84) 96 Room Air 11/14/17 14:18 18 11/14/17 13:00 81 11/14/17 12:00 98.7 80 18 117/64 (81) 97 Room Air I & O 11/15/17 07:00 Intake Total 4014 ml Output Total 700 ml Balance 3314 ml Capillary Refill : Less Than 3 SecondsLess Than 3 Seconds General Appearance: WD/WN, Mild Distress HEENT: PERRL/EOMI Respiratory: Lungs Clear, No Accessory Muscle Use, No Respiratory Distress Cardiovascular: Regular Rate, Rhythm, No Murmur Gastrointestinal: soft, tenderness (mostly at incision) Extremity: No Calf Tenderness Neurologic/Psychiatric: Alert, Oriented x3 Skin: Pallor Results Lab Laboratory Tests 11/15/17 05:20: White Blood Count 7.6, Red Blood Count 3.20L, Hemoglobin 9.7L, Hematocrit 28L, Mean Corpuscular Volume 88, Mean Corpuscular Hemoglobin 30, Mean Corpuscular Hemoglobin Concent 34, Red Cell Distribution Width 13.3, Platelet Count 203, Mean Platelet Volume 10.0, Sodium Level 141, Potassium Level 2.9L, Chloride Level 112H, Carbon Dioxide Level 20L, Anion Gap 9, Blood Urea Nitrogen 7, Creatinine 0.54L, Estimat Glomerular Filtration Rate > 60, BUN/Creatinine Ratio 13, Glucose Level 98, Calcium Level 7.0L, Corrected Calcium 8.0L, Total Bilirubin 0.5, Aspartate Amino Transf (AST/SGOT) 17, Alanine Aminotransferase ( ALT/SGPT) 43, Alkaline Phosphatase 87, Total Protein 5.0L, Albumin 2.8L Microbiology 11/13/17 MRSA Screen - Final, Complete MRSA not isolated Assessment/Plan Assessment/Plan Assessment/Plan S/P Partial colectomy, SB resection and extensive OTILIA Pt has minimal abdominal pain; main complaint now is nausea. Will give phenergan now, told her to take only sips of water and if it is ok she can drink a little more. Encouraged to ambulate and use IS. Await pathology. Clinical Quality Measures DVT/VTE Risk/Contraindication: Risk Factor Score Per Nursin RFS Level Per Nursing on Admit: 2=Moderate NORBERT COE DO Nov 15, 2017 09:19
[2017-11-15] MEDS ORDERED: POTASSIUM CL 10MEQ/50ML IVPB 200 ML IV ONE (11:49)
[2017-11-15 12:00] VITALS: BP 167/96
[2017-11-15] MEDS: POTASSIUM CL 10MEQ/50ML IVPB 50 ML IV SCH ×4 (12:00→17:18)
[2017-11-15 16:14] VITALS: BP 142/79
[2017-11-15 19:06] VITALS: BP 140/75
[2017-11-15] MEDS: clonazePAM 1 MG (KlonoPIN) TAB PO SCH (20:37)
[2017-11-15] MEDS: DULoxetine 30 MG (CYMBALTA) CAP PO SCH (20:37)
[2017-11-15] MEDS ORDERED: oxyCODONE/APAP 7.5-325 MG (PERCOCET 7.5) TABLET PO PRN (22:45)
[2017-11-16 00:54] VITALS: BP 150/87
[2017-11-16 04:43] VITALS: BP 147/88
[2017-11-16 05:12] LABS: HEMOGLOBIN 9.6 G/DL (11.5-16.0); MEAN PLATELET VOLUME 9.7 FL (7.4-10.4); RED BLOOD COUNT 3.26 10^6/uL (4.35-5.85); RED CELL DISTRIBUTION WIDTH 13.1 % (10.0-14.5); WHITE BLOOD COUNT 6.6 10^3/uL (4.3-11.0)
[2017-11-16 05:29] LABS: ALANINE AMINOTRANSFERASE 35 U/L (0-55); ALKALINE PHOSPHATASE 81 U/L (40-136); BILIRUBIN,TOTAL 0.5 MG/DL (0.1-1.0); BUN/CREATININE RATIO 8; CALCIUM 7.7 MG/DL (8.5-10.1); CARBON DIOXIDE 20 MMOL/L (21-32); CHLORIDE 109 MMOL/L (98-107); CREATININE SERUM 0.48 MG/DL (0.60-1.30); GFR ESTIMATED > 60; GLUCOSE 86 MG/DL (70-105); SODIUM 139 MMOL/L (135-145); TOTAL PROTEIN 5.6 GM/DL (6.4-8.2)
[2017-11-16] MEDS: PANTOPRAZOLE 40 MG (PROTONIX) TAB PO SCH (06:05)
[2017-11-16 08:00] VITALS: BP 160/90
[2017-11-16] MEDS ORDERED: POTASSIUM CL 10MEQ/50ML IVPB 50 ML IV SCH (08:45)
[2017-11-16] MEDS ORDERED: KCL 20 MEQ TAB (K-DUR) PO NR (09:30)
--- NOTE | 2017-11-16 10:19 | Progress Note ---
Subjective Time Seen by a Provider: 10:11 Subjective/Events-last exam Pt seen and examined, looks more alert and no distress this am; actually has smile on her face. She states she is passing gas and had a BM, denies nausea and states pain is minimal now. Review of Systems General: No Chills Pulmonary: No Dyspnea, No Cough Cardiovascular: No: Chest Pain Gastrointestinal: Abdominal Pain; No: Nausea Objective Exam Vital Signs Date Time Temp Pulse Resp B/P (MAP) Pulse Ox O2 Delivery O2 Flow Rate FiO2 11/16/17 08:00 99.4 95 20 160/90 (113) 96 Room Air 11/16/17 07:00 93 11/16/17 04:43 99.1 102 17 147/88 (107) 95 Room Air 11/16/17 01:05 108 11/16/17 00:54 99.1 100 17 150/87 (108) 96 Room Air 11/15/17 19:06 99.2 101 20 140/75 (96) 95 Room Air 11/15/17 19:00 94 11/15/17 18:00 16 11/15/17 16:14 99.5 103 20 142/79 (100) 95 Room Air 11/15/17 12:00 99.6 117 22 167/96 (119) 95 Room Air I & O 11/16/17 07:00 Intake Total 2844 ml Balance 2844 ml Capillary Refill : Less Than 3 SecondsLess Than 3 Seconds General Appearance: No Apparent Distress, WD/WN HEENT: PERRL/EOMI Respiratory: Lungs Clear, No Accessory Muscle Use, No Respiratory Distress Cardiovascular: Regular Rate, Rhythm, No Murmur Gastrointestinal: soft, no organomegaly, tenderness (at incision only), other ( incision is C/D/I) Extremity: No Calf Tenderness Neurologic/Psychiatric: Alert, Oriented x3 Skin: Pallor Results Lab Laboratory Tests 11/16/17 04:31: White Blood Count 6.6, Red Blood Count 3.26L, Hemoglobin 9.6L, Hematocrit 28L, Mean Corpuscular Volume 87, Mean Corpuscular Hemoglobin 29, Mean Corpuscular Hemoglobin Concent 34, Red Cell Distribution Width 13.1, Platelet Count 206, Mean Platelet Volume 9.7, Sodium Level 139, Potassium Level 3.0L, Chloride Level 109H, Carbon Dioxide Level 20L, Anion Gap 10, Blood Urea Nitrogen 4L, Creatinine 0.48L, Estimat Glomerular Filtration Rate > 60, BUN/Creatinine Ratio 8, Glucose Level 86, Calcium Level 7.7L, Corrected Calcium 8.5, Total Bilirubin 0.5, Aspartate Amino Transf (AST/SGOT) 15, Alanine Aminotransferase (ALT/SGPT) 35, Alkaline Phosphatase 81, Total Protein 5.6L, Albumin 3.0L Microbiology 11/13/17 MRSA Screen - Final, Complete MRSA not isolated Assessment/Plan Assessment/Plan Assessment/Plan S/P Partial colectomy, SB resection and extensive TOILIA Will switch to oral pain meds and increase diet to soft, continue ambulation and IS. Hopefully can go home tomorrow. Clinical Quality Measures DVT/VTE Risk/Contraindication: Risk Factor Score Per Nursin RFS Level Per Nursing on Admit: 2=Moderate NORBERT COE DO Nov 16, 2017 10:19
[2017-11-16 12:00] VITALS: BP 146/93
[2017-11-16 15:35] VITALS: BP 129/82
[2017-11-16 19:35] VITALS: BP 144/86
[2017-11-16] MEDS: clonazePAM 1 MG (KlonoPIN) TAB PO SCH (20:58)
[2017-11-16] MEDS: DULoxetine 30 MG (CYMBALTA) CAP PO SCH (20:58)
[2017-11-17 00:11] VITALS: BP 147/92
[2017-11-17 04:13] VITALS: BP 149/91
[2017-11-17] MEDS: PANTOPRAZOLE 40 MG (PROTONIX) TAB PO SCH (06:11)
[2017-11-17 08:00] VITALS: BP 147/88
[2017-11-17 10:35] LABS: BUN/CREATININE RATIO 10; CALCIUM 8.3 MG/DL (8.5-10.1); CARBON DIOXIDE 24 MMOL/L (21-32); CHLORIDE 108 MMOL/L (98-107); CREATININE SERUM 0.52 MG/DL (0.60-1.30); GFR ESTIMATED > 60; GLUCOSE 99 MG/DL (70-105); POTASSIUM 3.2 MMOL/L (3.6-5.0); SODIUM 141 MMOL/L (135-145)
[2017-11-17] MEDS ORDERED: KCL 20 MEQ TAB (K-DUR) PO NR (11:40)
[2017-11-17 12:00] VITALS: BP 148/82
--- NOTE | 2017-11-17 12:17 | Progress Note ---
Subjective Time Seen by a Provider: 11:39 Subjective/Events-last exam Pt seen and examined, states she feels fine. Having some diarrhea, but no pain. Her only complaint was that the tape has caused some irritation. She would like to go home. Review of Systems General: No Chills, No Night Sweats Pulmonary: No Dyspnea, No Cough Cardiovascular: No: Chest Pain, Palpitations Gastrointestinal: Diarrhea; No: Nausea, Vomiting Objective Exam Vital Signs Date Time Temp Pulse Resp B/P (MAP) Pulse Ox O2 Delivery O2 Flow Rate FiO2 11/17/17 08:00 98.3 94 16 147/88 (107) 98 Room Air 11/17/17 07:00 86 11/17/17 04:13 99.5 99 18 149/91 (110) 98 Room Air 11/17/17 01:05 90 11/17/17 00:11 98.7 91 18 147/92 (110) 98 Room Air 11/16/17 19:35 98.8 96 20 144/86 (105) 97 Room Air 11/16/17 15:35 98.0 103 18 129/82 (98) 99 Room Air I & O 11/17/17 07:00 Intake Total 2020 ml Output Total 3650 ml Balance -1630 ml Capillary Refill : Less Than 3 SecondsLess Than 3 Seconds General Appearance: No Apparent Distress, WD/WN HEENT: PERRL/EOMI Respiratory: Lungs Clear, No Accessory Muscle Use, No Respiratory Distress Cardiovascular: Regular Rate, Rhythm, No Murmur Gastrointestinal: soft, no organomegaly, tenderness (at incision only), other ( incision is C/D/I) Extremity: No Calf Tenderness Neurologic/Psychiatric: Alert, Oriented x3 Skin: Pallor Results Lab Laboratory Tests 11/17/17 10:10: Sodium Level 141, Potassium Level 3.2L, Chloride Level 108H, Carbon Dioxide Level 24, Anion Gap 9, Blood Urea Nitrogen 5L, Creatinine 0.52L, Estimat Glomerular Filtration Rate > 60, BUN/Creatinine Ratio 10, Glucose Level 99, Calcium Level 8.3L Microbiology 11/13/17 MRSA Screen - Final, Complete MRSA not isolated Assessment/Plan Assessment/Plan Assessment/Plan S/P Partial colectomy, SB resection and extensive OTILIA D/C home Clinical Quality Measures DVT/VTE Risk/Contraindication: Risk Factor Score Per Nursin RFS Level Per Nursing on Admit: 2=Moderate NORBERT COE DO Nov 17, 2017 12:17
[2017-11-17] MEDS ORDERED: TRAM50TA2 PO (12:19)
--- NOTE | 2017-11-17 12:20 | Discharge Inst-Surgical ---
Discharge Inst-Surgical Depart Medication/Instructions New, Converted or Re-Newed RX: RX Given to Pt/Family Patient Instructions Follow up Appt: Make appointment for 1 week. Instructions: No lifting greater than 10 pounds. No strenuous activity. May shower in 24 hours, no tub bath or soaking. Use incentive spirometer at home as directed. No Smoking Skin/Wound Care: May remove bandages. You need to leave the ike in place and come in for removal. Symptoms to Report: Appetite Changes, Extremity Discoloration, Numbness/Tingling, Swelling Increased , Bleeding Excessive, Eyesight Changes, Pain Increased, Urine Color Change, Constipation(Persistent), Fever over 101 degree F, Pain/Pressure in chest, Urinating Difficulty, Cough Up/Vomit Blood, Heart Beat Irreg/Pounding, Pain/ Pressure in jaw, Vaginal Bleeding Increase, Cramps in feet or legs, Lightheadedness, Pain/Pressure in shoulder, Diarrhea(Persistent), Memory Changes Suddenly, Questions/Concerns, Weight gain consecutive days, Dizziness/ Fainting, Nausea/Vomiting, Shortness of Breath, Weight gain over 2 pounds If questions or concerns contact your physician Or seek help at emergency department. Activity Activity Instructions: Avoid Stress to Incision Driving Instructions: No Driving/Refer to Dr. Cochran Discharge Diet: No Restrictions Diet After 24 Hours: Clear Liquid if Nauseous If Any Problems/Questions/Issu: Contact Your Physician, Go to Emergency Room Skin/Wound Care Infection Signs and Symptoms: Increased Redness, Foul Odor of Wound, Increased Drainage, Skin Itchy or Has a Rash, Increased Swelling, Temperature Above 101 F Bathing Instructions: Shower Stitches/Tyler/Dermabond Dis: Care of NORBERT Rader DO Nov 17, 2017 12:20
--- NOTE | 2017-11-17 13:19 | Progress Note (SOAP) ---
Subjective Subjective/Events-last exam Afebrile, no acute events, states she is feeling fairly well. Review of Systems Date Seen by Provider: Nov 17, 2017 Time Seen by Provider: 10:25 Objective Exam Last Set of Vital Signs Vital Signs Date Time Temp Pulse Resp B/P (MAP) Pulse Ox O2 Delivery O2 Flow Rate FiO2 11/17/17 12:00 97.9 84 18 148/82 (104) 99 Room Air 11/14/17 15:44 3.00 Capillary Refill : Less Than 3 SecondsLess Than 3 Seconds I&O Intake and Output 11/17/17 00:00 Intake Total 2420 ml Output Total 2400 ml Balance 20 ml Intake Oral 2420 ml Output Urine Total 2400 ml # Voids 6 # Bowel Movements 7 General: Alert, No Acute Distress Lungs: Clear to Auscultation, Normal Air Movement Heart: Regular Rate, No Murmurs Abdomen: Normal Bowel Sounds Psych/Mental Status: Mood NL Results/Procedures Lab Laboratory Tests 11/17/17 10:10: Sodium Level 141, Potassium Level 3.2L, Chloride Level 108H, Carbon Dioxide Level 24, Anion Gap 9, Blood Urea Nitrogen 5L, Creatinine 0.52L, Estimat Glomerular Filtration Rate > 60, BUN/Creatinine Ratio 10, Glucose Level 99, Calcium Level 8.3L Microbiology 11/13/17 MRSA Screen - Final, Complete MRSA not isolated Radiology CT abdomen/pelvis 11/12/17 IMPRESSION: Extraluminal air and increasing inflammatory changes about the bowel anastomosis in the right lower quadrant suspicious for anastomotic leak and/or abscess. Assessment/Plan Assessment/Plan (1) Bowel perforation Status: Acute Assessment & Plan: Management per Surgery. 11/14 s/p open partial colectomy, partial small bowel resection and lysis of adhesions on 11/13 (2) Major depressive disorder in partial remission Status: Chronic Assessment & Plan: Continue duloxetine Qualifiers: Qualified Codes: F33.41 - Major depressive disorder, recurrent, in partial remission (3) Anxiety Status: Chronic Assessment & Plan: Continue clonazepam Clinical Quality Measures DVT/VTE Risk/Contraindication: Risk Factor Score Per Nursin RFS Level Per Nursing on Admit: 2=Moderate VELIA DUBOSE MD Nov 17, 2017 1:19 pm
[2017-11-17 13:30] VITALS: BP 148/82
== END 2017-11-17 13:30 | disposition home or self-care (01) | DRG 329 ==
LOC: EDUNIT# 21:01 → ER 21:02 → 4TH 22:30
PROVIDERS: ADMIT Surgery; ATTEND Surgery
PROC: 0DBF0ZZ Excision of Right Large Intestine, Open Approach (ICD-10-PCS; principal; 2017-11-11)
PROC: 0DBB0ZZ Excision of Ileum, Open Approach (ICD-10-PCS; 2017-11-11)
PROC: 0DB80ZZ Excision of Small Intestine, Open Approach (ICD-10-PCS; 2017-11-11)
PROC: 0WJG4ZZ Inspection of Peritoneal Cavity, Percutaneous Endoscopic Approach (ICD-10-PCS; 2017-11-11)
DX: K63.0 Abscess of intestine (principal); K63.1 Perforation of intestine (nontraumatic); C7A.098 Malignant carcinoid tumors of other sites; Q61.3 Polycystic kidney, unspecified; B15.9 Hepatitis A without hepatic coma; K46.9 Unspecified abdominal hernia without obstruction or gangrene; Z90.5 Acquired absence of kidney; K58.9 Irritable bowel syndrome, unspecified; F41.8 Other specified anxiety disorders; Z90.49 Acquired absence of other specified parts of digestive tract; Z87.891 Personal history of nicotine dependence
CPT/HCPCS: 36415; 74177; 80048; 80053; 81000; 82150; 83690; 84703; 85007; 85025; 85027; 87081; 88307; 94664; 96361; 96374; 96375; 96376

== ENCOUNTER → 2017-11-30 | Outpatient (CLI) | payer OTHER ==
[~2017-11-30] MED LIST changes: +CATHETER FLUSH 10 ML SYR IV PRN; +DULO60CA58 PO; +IOHEXOL 350 MG/ML 100 ML (OMNIPAQUE 350) VIAL IV ONE; +NS 250 ML (IVPB) BAG IV ONE; +PANT40TA3 PO; +RECEIVED CONTRAST (Hold Metformin) IV SCH; +TRAM50TA2 PO
--- NOTE | 2017-11-30 16:59 | Diagnostic Imaging Report ---
PROCEDURE: CT abdomen and pelvis with contrast. TECHNIQUE: Multiple contiguous axial images were obtained through the abdomen and pelvis after administration of intravenous contrast. DATE: November 30, 2017. COMPARISON: CT abdomen and pelvis, November 11, 2017. INDICATION: 47-year-old female, right lower quadrant abdominal pain, diarrhea. FINDINGS: There is minimal atelectasis in the lung bases. The heart is not enlarged. There is no pericardial effusion. The liver is normal in size and contour. There is no identified liver lesion. The main, right and left portal veins are patent. The patient is status post cholecystectomy. There is no intrahepatic or extrahepatic bile duct dilation. The main pancreatic duct is not abnormally dilated. Unremarkable appearance of the pancreatic parenchyma. The spleen is normal in size. The adrenal glands are unremarkable. There are surgical clips in the region of the right renal fossa. Right kidney may be surgically absent. The left kidney is abnormally rotated. There is no identified left renal mass. There is no hydronephrosis. There is no identified renal or ureteral stone. The urinary bladder is unremarkable in appearance. The uterus is not seen and may be surgically absent. There are sutures at the level of the right colon. There is a gas containing fluid collection subjacent to the sutures in the right abdomen which directly abuts the inferior aspect of the right lobe of the liver. This measures 3.4 x 2.4 x 4.7 cm in size. This is as measured on axial image 32 and coronal image 24. There is inflammatory stranding in the right lower quadrant including in the region of the sutures as well as in the anterior aspect of the abdomen. There is abnormal and fairly focal fluid in the anterior aspect of the abdomen on axial image 55 and coronal image 17 measuring approximately 5.0 x 2.3 x 3.6 cm in size. There are no particularly well-defined mature vivar to this area of focal fluid. This may relate to a developing fluid collection. There is no free intraperitoneal air. There is no sizable volume layering of free pelvic fluid. There is a fat-containing umbilical hernia with inflammatory stranding in the region of the hernia. There is close apposition of small bowel loops of the anterior abdominal wall without identified contour abnormality. There is no identified abnormally enlarged lymph node within the abdomen or pelvis which specifically meets CT size criteria for adenopathy. There are bilateral L5 pars interarticularis defects. There is grade 1 anterolisthesis of L5 on S1. There is no identified acute bony abnormality. There is no identified aggressive bone lesion. IMPRESSION: CT abdomen and pelvis: 1. Gas containing fluid collection in the right abdomen subjacent to the sutures at the level of the right colon. This would be concerning for an abscess or a contained perforation. This measures 3.4 x 2.4 x 4.7 cm in size and is new since prior CT. 2. Additional new area of focal fluid within the anterior abdomen without particularly well defined mature vivar at this time likely relating to a developing fluid collection, measuring 5.0 x 2.3 x 3.6 cm in size. This is also new. 3. Wall thickening of small bowel in the right lower quadrant does appear improved since prior exam. There is persistent inflammatory stranding in this region. Dictated by: Dictated on workstation # [id number]
== END ==
LOC: RAD 16:02
PROVIDERS: ATTEND Surgery
DX: K63.89 Other specified diseases of intestine (principal); R10.31 Right lower quadrant pain; Z90.49 Acquired absence of other specified parts of digestive tract
CPT/HCPCS: 74177

== ENCOUNTER 2017-12-01 07:20 | Outpatient (CLI) | payer OTHER ==
[2017-12-01] VITALS (14 sets, daily range): BP systolic 104–134; BP diastolic 54–85
[~2017-12-01] VITALS: Ht 139.7 cm; Wt 55.4 kg
[~2017-12-01 07:20] MED LIST changes: -CATHETER FLUSH 10 ML SYR IV PRN; -IOHEXOL 350 MG/ML 100 ML (OMNIPAQUE 350) VIAL IV ONE; -NS 250 ML (IVPB) BAG IV ONE; -RECEIVED CONTRAST (Hold Metformin) IV SCH
[2017-12-01] MEDS ORDERED: LIDOCAINE 1% INJ 20 ML 20 ML VIAL INJ ONE (08:15)
[2017-12-01 08:50] LABS: HEMOGLOBIN 10.5 G/DL (11.5-16.0); MEAN PLATELET VOLUME 9.3 FL (7.4-10.4); RED BLOOD COUNT 3.7 10^6/uL (4.35-5.85); RED CELL DISTRIBUTION WIDTH 12.8 % (10.0-14.5); WHITE BLOOD COUNT 5.5 10^3/uL (4.3-11.0)
[2017-12-01] MEDS ORDERED: DIAZEPAM 5 MG (VALIUM) TABLET PO ONE (09:00)
[2017-12-01] MEDS ORDERED: NS IV 1000 ML 1,000 ML IV STA (09:02)
[2017-12-01] MEDS ORDERED: MIDAZOLAM 2 MG/2 ML (VERSED) VIAL ONE (09:08)
[2017-12-01] MEDS ORDERED: fentaNYL INJECTION 100 MCG/2 ML AMP ONE (09:08)
[2017-12-01] MEDS ORDERED: NS IV 1000 ML 1,000 ML ONE (09:09)
[2017-12-01 09:11] LABS: INR 1.1 (0.8-1.4); PROTHROMBIN TIME PATIENT 14.2 SEC (12.2-14.7)
[2017-12-01] MEDS ORDERED: MIDAZOLAM 2 MG/2 ML (VERSED) VIAL IVP ONE (09:15)
[2017-12-01] MEDS ORDERED: fentaNYL INJECTION 100 MCG/2 ML AMP IVP ONE (09:15)
[2017-12-01] MEDS ORDERED: HYDROcodone/APAP 5 MG/325 MG (LORTAB) TAB PO PRN (10:15)
--- NOTE | 2017-12-01 11:07 | Diagnostic Imaging Report ---
INDICATION: Fluid collection in the right abdomen. Patient presents for CT-guided drainage. COMPARISON: Correlation is made with a recent CT abdomen and pelvis from 11/30/2017. PROCEDURE: Patient was brought to the procedure room and placed on the table in the supine position. Axial imaging through the abdomen was performed to evaluate entry site. The procedure was performed utilizing moderate sedation with 1 mg of Versed and 50 mcg of fentanyl administered. Study was performed with radiology nursing and constant patient monitoring. Procedure time was 15 minutes. Right abdomen was prepped and draped in usual sterile fashion. Small amount of 1% lidocaine was utilized for local anesthesia. A [employer] needle was advanced into the fluid collection along the inferior right lobe of the liver. Small amount of serosanguineous fluid was aspirated. Needle was then repositioned multiple times into the area of low density. Only minimal amount of fluid could be aspirated. Total of 3 cc was removed. Hemostasis was obtained using manual compression. IMPRESSION: CT-guided aspiration of the small fluid collection adjacent to the tip of the liver in the right abdomen. Moderate conscious sedation was utilized. Approximately 3 cc of serosanguineous fluid was removed and sent to lab for testing. Dictated by: Dictated on workstation # [id number]
--- NOTE | 2017-12-01 15:25 | Pre-Op Note & Conscious Sedat ---
Pre-Operative Progress Note H&P Reviewed The H&P was reviewed, patient examined and no changes noted. Date H&P Reviewed: Dec 01, 2017 Time H&P Reviewed: 08:00 Pre-Op Diagnosis: abdominal abscess Conscious Sedation Pre-Proced Time 08:00 ASA Score 2 For ASA 3 and 4: Consider anesthesia and medical clearance. Also, for patients with a history of failed moderate sedation consider anesthesia. Airway Lungs Heart ASA score ASA 1: a normal healthy patient ASA 2: a patient with a mild systemic disease (mid diabetes, controlled hypertension, obesity ASA 3: a patient with a severe systemic disease that limits activity (angina , COPD, prior Myocardial infarction) ASA 4: a patient with an incapacitating disease that is a constant threat to life (CHF, renal failure) ASA 5: a moribund patient not expected to survive 24 hrs. (ruptured aneurysm) ASA 6: a declared brain patient whose organs are being harvested. For emergent operations, add the letter E after the classification Mallampati Classification Grade 2 Sedation Plan Analgesia, Amnesia, Plan communicated to team members, Discussed options with patient/fam, Discussed risks with patient/fam The patient is an appropriate candidate to undergo the planned procedure, sedation, and anesthesia. The patient immediately re-assessed prior to indication. SILVIA MCGOWAN MD Dec 01, 2017 15:25
== END 2017-12-01 12:51 | disposition home or self-care (01) ==
LOC: RAD 07:20 → SDC 10:05 → RAD 12:51
PROVIDERS: ATTEND Surgery
DX: R10.31 Right lower quadrant pain (principal)
CPT/HCPCS: 36415; 77012; 85027; 85610; 85730; 87070; 87075; 87077; 87205; 99156

== ENCOUNTER → 2018-01-05 | Outpatient (CLI) | payer OTHER ==
[~2018-01-05] MED LIST changes: +METR-197 PO; -METR500T21 PO
--- NOTE | 2018-01-05 12:00 | Diagnostic Imaging Report ---
PROCEDURE: CT chest with contrast, CT abdomen and pelvis with and without contrast. TECHNIQUE: Pre and post intravenous contrast axial imaging of the abdomen and pelvis and post contrast axial imaging of the chest were performed. INDICATION: Carcinoid tumor of the cecum. The study is performed for followup. COMPARISON: Comparison is made with prior CT abdomen and pelvis study from 11/30/2017. FINDINGS: CT chest: No axillary lymphadenopathy is identified. No mediastinal or hilar lymphadenopathy is detected. No pericardial or pleural fluid is identified. Parenchymal evaluation does show a small nodule in the lateral portion of the right middle lobe measuring 4 mm and stable when compared with CT chest from 10/12/2017. There is some atelectasis or scarring in the lingula. IMPRESSION: Stable CT of the chest since study from 10/12/2017. No thoracic lymphadenopathy or evidence of pulmonary metastatic disease is seen. CT abdomen and pelvis: No discrete liver mass is seen. Gallbladder is surgically absent. No biliary ductal dilatation is seen. The pancreas and spleen are unremarkable. No adrenal mass is seen. The right kidney is absent. 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 Aorta is nonaneurysmal. There has been significant improvement in inflammatory changes in the right lower quadrant when compared with study from 11/30/2017. The small gas and fluid collection adjacent to the right lobe of the liver previously seen has significantly decreased in size, now measuring 1.6 cm AP x 1.2 cm transverse compared with 3.4 cm AP x 2.4 cm transverse. The fluid more inferiorly and anteriorly in the abdomen has resolved. Bowel loops appear nonobstructed. No central retroperitoneal or mesenteric lymphadenopathy is seen. No definite pelvic lymphadenopathy is identified. The bladder is unremarkable. Uterus is unremarkable. IMPRESSION: Significantly improved appearance to the abdomen and pelvis since study from 11/30/2017. Inflammatory changes have resolved in the right lower quadrant. The small gas and fluid collection adjacent to the right lobe of the liver has significantly decreased in size. No new fluid collection is seen. There is no evidence of bowel obstruction, adenopathy, or metastatic disease. Dictated by: Dictated on workstation # [id number]
== END ==
LOC: RAD 10:24
PROVIDERS: ATTEND Internal Medicine Hematology & Oncology
DX: C7A.021 Malignant carcinoid tumor of the cecum (principal); Q96.9 Turner's syndrome, unspecified; L92.9 Granulomatous disorder of the skin and subcutaneous tissue, unspecified; Z90.49 Acquired absence of other specified parts of digestive tract
CPT/HCPCS: 71260; 74178

== ENCOUNTER 2018-01-09 11:26 | Outpatient (RCR) | payer OTHER ==
[~2018-01-09 11:26] MED LIST changes: -ALEN70TA47 PO; +ALEN70TA5 PO; +METR-145 PO; -METR-197 PO
== END 2018-04-09 | disposition home or self-care (01) ==
LOC: LAB 11:26
PROVIDERS: ATTEND Surgery
DX: R19.7 Diarrhea, unspecified (principal)
CPT/HCPCS: 87015; 87045; 87046; 87324; 87328; 87329; 87449; 87899

== ENCOUNTER 2018-01-23 18:00 | Emergency (ER) | payer OTHER ==
[~2018-01-23] VITALS: Ht 139.7 cm; Wt 48.5 kg
[~2018-01-23 18:00] MED LIST changes: +ALEN70TA47 PO; -ALEN70TA5 PO; -METR-145 PO; +METR-197 PO
--- OUTSIDE RECORDS SUMMARY | 2018-01-23 18:06 | XMS REPORT ---
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 91451992 Problem Irritable bowel syndrome without diarrhea K58.9 Active 31770860 Problem Hearing loss, bilateral H91.93 Active 38787479 Problem IBS (irritable bowel syndrome) K58.9 Active 64693495 Problem Generalized anxiety disorder F41.1 Active 141412642 Problem Vitamin D deficiency E55.9 Active 05565011 Problem Osteopenia M85.80 Active 196947423 Problem Symptomatic premature menopause E28.310 Active 051022994 Problem Arthralgia M25.50 Active 61569369 Problem History of nephrectomy Z90.5 Active 049688659 Problem Neck pain M54.2 Active 63210915 ALLERGIES No Information ENCOUNTERS Encounter Location Date Diagnosis [place] [id number] [place] [address] 96904- 4329 Nov, Generalized anxiety disorder F41.1 [facility] [address] [place] [address] 25493- 0149 Nov, Osteopenia M85.80 [facility] [id number] [place] [address] 91560- 5270 Oct, [facility] [address] [place] [id number] [place] [address] 29709- 8053 Oct, [place] [address] [place] [address] 06139- 3947 Oct, Major depressive disorder, recurrent, moderate F33.1 and Generalized anxiety disorder F41.1 [place] [id number] [place] [id number] [place] [address] 72175- 4614 Oct, [place] [address] 54059- 5089 Sep, Major depressive disorder, recurrent, moderate F33.1 and Arthralgia M25.50 [place] [address] 12126- 4290 Sep, Generalized anxiety disorder F41.1 and Chronic use of benzodiazepine for therapeutic purpose Z79.899 [place] [address] 06452- 2571 Aug, Osteopenia M85.80 ; 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 ; Generalized anxiety disorder F41.1 ; Vitamin D deficiency E55.9 and Major depressive disorder, recurrent, moderate F33.1 [place] [address] 11495- 4974 Aug, Generalized anxiety disorder F41.1 [place] [address] 04030- 5051 Jul, Osteopenia M85.80 [place] [address] 12111- 7853 June, Generalized anxiety disorder F41.1 [facility] [address] [place] [address] [id number] [place] [address] 30038 -7638 May, Acute nasopharyngitis J00 [facility] [address] [address] [id number] [place] [address] 53447 -2054 May, Sore in nose J34.89 [place] [address] 46230- 3893 Apr, Osteopenia M85.80 and Generalized anxiety disorder F41.1 [place] [address] 17027- 2854 Feb, [place] [address] [place] [address]- 6251 Nov, Depression F32.9 ; Osteopenia M85.80 ; Generalized anxiety disorder F41.1 ; Irritable bowel syndrome without diarrhea K58.9 ; Vitamin D deficiency E55.9 ; Arthralgia M25.50 ; 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 ; General medical exam Z00.00 and Long-term use of high-risk medication Z79.899 [place] [address] 47800- 2964 Sep, Depression F32.9 and Osteopenia M85.80 [place] [address] 18986- 1678 Aug, Depression F32.9 [place] [address] 73065- 8345 June, Depression F32.9 [place] [address] 59910- 6356 May, Depression F32.9 [place] [address] 02701- 8832 Mar, Depression F32.9 [place] [address] 08320- 5598 Mar, Depression F32.9 ; 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 ; Irritable bowel syndrome without diarrhea K58.9 ; Symptomatic premature menopause E28.310 ; History of nephrectomy Z90.5 ; Neck pain M54.2 ; Non-healing skin lesion of nose L98.9 and Vitamin D deficiency E55.9 [place] [address] [place] [id number] [place] [address] 84667- 0666 Feb, [place] [address] 91208- 4447 Jan, [place] [address] 37638- 7327 Dec, Hearing loss, bilateral H91.93 [place] [address] [place] [id number] [place] [address] 34514- 0410 Nov, [place] [address] [place] [id number] [place] [address] 57698- 1894 Nov, [place] [address] [place] [id number] [place] [address] 98195- 8289 Oct, Depression F32.9 ; 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 ; Irritable bowel syndrome without diarrhea K58.9 ; Symptomatic premature menopause E28.310 ; History of nephrectomy Z90.5 and Neck pain M54.2 [place] [address] [place] [id number] [place] [address] 61818- 9764 Sep, [place] [address] [id number] [place] [address] 96561- 8608 Sep, Depression F32.9 ; 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 ; Abnormal finding on CT scan R93.8 ; Irritable bowel syndrome without diarrhea K58.9 ; Symptomatic premature menopause E28.310 ; History of nephrectomy Z90.5 ; Neck pain M54.2 ; Arthralgia M25.50 ; Osteopenia M85.80 and Screening breast examination Z12.39 [place] [address] [place] [id number] [place] [address] 06685- 5512 Sep, [place] [address] [place] [id number] [place] [address] 33968- 3585 June, [place] [address] [place] [id number] [place] [address] 16966- 5534 Mar, Osteopenia M85.80 [place] [address] [place] [id number] [place] [address] 34344- 3973 Feb, Depression F32.9 ; 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 ; Abnormal finding on CT scan R93.8 ; Irritable bowel syndrome without diarrhea K58.9 ; Symptomatic premature menopause E28.310 ; History of nephrectomy Z90.5 ; Neck pain M54.2 and Arthralgia M25.50 [place] [address] [place] [id number] [place] [address] 33193- 0628 Feb, [facility] [address] [place] [address] 73374- 7477 Feb, [facility] [address] [place] [address] [id number] [place] [address] 13594- 7294 Jan, Depression F32.9 ; 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 ; Abnormal finding on CT scan R93.8 ; Irritable bowel syndrome without diarrhea K58.9 ; Symptomatic premature menopause E28.310 ; History of nephrectomy Z90.5 ; Neck pain M54.2 and Arthralgia M25.50 [facility] [address] [place] [id number] [place] [address] 19858- 3160 Jan, Depression F32.9 and Generalized anxiety disorder F41.1 [facility] [address] [place] [address] 10164 -5180 Jan, Halie rash of groin B37.89 ; Antibiotic long-term use Z79.2 and Sinusitis 473.9 [facility] [address] [place] [address] [id number] [place] [address] 07549- 0504 16 Oct, 2014 Unspecified breast screening V76.10 [place] [address] [place] [id number] [place] [address] 41712- 0474 June, Sinusitis 473.9 [facility] [address] [address] [id number] [place] [address] 27455- 3504 May, [facility] [address] [id number] [place] [address] 72352- 2170 May, [facility] [address] [address] [id number] [place] [address] 67624- 9993 Apr, [facility] [address] [id number] [place] [address] 61983- 5406 Mar, [facility] [address] [address] [id number] [place] [address] 89649- 0786 Mar, [facility] [address] [place] [id number] [place] [address] 21370- 8402 Mar, [facility] [place] [facility] [address] [id number] [place] [address]- 1646 Mar, [facility] [place] [facility] [address] [id number] [place] [address]- 0997 Feb, [facility] [place] [facility] [address] [id number] [place] [address]- 9136 Feb, [facility] [place] [facility] [address] [id number] [place] [address]- 7129 Feb, [facility] [place] [facility] [address] [id number] [place] [address]- 8159 Feb, [facility] [place] [facility] [address] [id number] [place] [address]- 8861 Feb, [facility] [place] [facility] [address] [id number] [place] [address]- 7870 Feb, [facility] [place] [facility] [address] [id number] [place] [address]- 2762 Jan, [facility] [place] [facility] [address] [id number] [place] [address]- 3137 Jan, [facility] [place] [facility] [address] [id number] [place] [address]- 4189 Dec, [facility] [place] [facility] [address] [id number], [place] [address]- 3619 Dec, [facility] [place] [facility] [address] [id number], [place] [address]- 6463 Nov, [facility] [place] [facility] [address] [id number] [place] [address]- 0520 Nov, [facility] [place] [facility] [address] [id number] [place] 9327 Oct, [facility] [place] [facility] [address] [id number] [place] 8780 Oct, [facility] [place] [facility] [address] [address] 4198 Oct, [facility] [address] 2739 Oct, [facility] [address] 8500 Nov, [facility] [address] 7469 Nov, [facility] [address] [address]- 0399 Sep, [facility] [address] [place] [address] 92169- 5295 Sep, [facility] [address] [address]- 3276 Sep, [facility] [address] [address]- 8010 Jul, [facility] [address] [address]- 8353 June, [facility] [address] [address]- 0836 June, [facility] [address] [address]- 5476 May, [facility] [address] [address]- 4409 May, [facility] [address] [place] [id number] [address]- 1983 Apr, IMMUNIZATIONS No Known Immunizations SOCIAL HISTORY Never Assessed REASON FOR VISIT Controlled Med Refill PLAN OF CARE VITAL SIGNS MEDICATIONS Medication Instructions Dosage Frequency Start Date End Date Duration Status Clonazepam 1 mg Orally Once a day at hs prn [...] Stage 4 Bowel Cancer-Dr Bauman, Dr Clement ([place]) Medical History Antibiotic long-term use Medical History [...]
--- OUTSIDE RECORDS SUMMARY | 2018-01-23 18:06 | XMS REPORT ---
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 55841015 Problem Irritable bowel syndrome without diarrhea K58.9 Active 23239685 Problem Hearing loss, bilateral H91.93 Active 77689109 Problem IBS (irritable bowel syndrome) K58.9 Active 83066986 Problem Generalized anxiety disorder F41.1 Active 040638440 Problem Vitamin D deficiency E55.9 Active 69098155 Problem Osteopenia M85.80 Active 205190296 Problem Symptomatic premature menopause E28.310 Active 228769407 Problem Arthralgia M25.50 Active 65462982 Problem History of nephrectomy Z90.5 Active 092105201 Problem Neck pain M54.2 Active 54906188 ALLERGIES No Information ENCOUNTERS Encounter Location Date Diagnosis [place] [address] [place] [address] 03636- 6682 Dec, Generalized anxiety disorder F41.1 [facility] [address] [place] [address] 81596- 1982 Nov, Generalized anxiety disorder F41.1 [facility] [address] [address]- 2471 Nov, Osteopenia M85.80 [facility] [address] [place] [address] [id number] [place] [address] 71981- 0883 Oct, [facility] [address] [address]- 7163 Oct, [facility] [address] [place] [id number] [place] [address] 24179- 2542 19 Oct, 2017 Major depressive disorder, recurrent, moderate F33.1 and Generalized anxiety disorder F41.1 [place] [address] [place] [id number] [place] [address] 06322- 7748 Oct, [place] [address] [place] [id number] [place] [address] 93459- 6109 Sep, Major depressive disorder, recurrent, moderate F33.1 and Arthralgia M25.50 [place] [address] [place] [id number] [place] [address] 46738- 1094 Sep, Generalized anxiety disorder F41.1 and Chronic use of benzodiazepine for therapeutic purpose Z79.899 [place] [address] [place] [id number] [place] [address] 27393- 8419 Aug, Osteopenia M85.80 ; 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 ; Generalized anxiety disorder F41.1 ; Vitamin D deficiency E55.9 and Major depressive disorder, recurrent, moderate F33.1 [place] [address] [place] [id number] [place] [address] 72064- 9165 Aug, Generalized anxiety disorder F41.1 [place] [address] [place] [id number] [place] [address] 64638- 9520 Jul, Osteopenia M85.80 [place] [address] [place] [address] [id number] [place] [address] 34839- 4260 June, Generalized anxiety disorder F41.1 [facility] [id number] [place] [address] 09902 -0682 May, Acute nasopharyngitis J00 [facility] [address] 83123 -5475 16 May, 2017 Sore in nose J34.89 [place] [address] [place] [id number] [place] [address] 06637- 9979 Apr, Osteopenia M85.80 and Generalized anxiety disorder F41.1 [place] [address] [place] [id number] [place] [address] 77352- 9869 Feb, [place] [address] 09453- 6263 Nov, Depression F32.9 ; Osteopenia M85.80 ; Generalized anxiety disorder F41.1 ; Irritable bowel syndrome without diarrhea K58.9 ; Vitamin D deficiency E55.9 ; Arthralgia M25.50 ; 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 ; General medical exam Z00.00 and Long-term use of high-risk medication Z79.899 [place] [address] [place] [id number] [place] [address] 74090- 0846 Sep, Depression F32.9 and Osteopenia M85.80 [place] [address] [place] [address] [id number] [place] [address] 25198- 6148 Aug, Depression F32.9 [place] [address] 99463- 4580 June, Depression F32.9 [place] [address] 11563- 1142 May, Depression F32.9 [place] [address] [place] [id number] [place] [address] 52162- 4429 Mar, Depression F32.9 [place] [address] [place] [address] [id number] [place] [address] 84086- 5537 Mar, Depression F32.9 ; 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 ; Irritable bowel syndrome without diarrhea K58.9 ; Symptomatic premature menopause E28.310 ; History of nephrectomy Z90.5 ; Neck pain M54.2 ; Non-healing skin lesion of nose L98.9 and Vitamin D deficiency E55.9 [place] [address] [place] [address] [id number] [place] [address] 43724- 8140 Feb, [place] [address] [place] [address] 97946- 1305 Jan, [place] [address] [place] [address] [id number] [place] [address] 89033- 5985 Dec, Hearing loss, bilateral H91.93 [place] [address] [place] [address] [id number] [place] [address] 36842- 1247 Nov, [place] [address] [place] [address] [id number] [place] [address] 10548- 3632 Nov, [place] [address] 49381- 1380 Oct, Depression F32.9 ; 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 ; Irritable bowel syndrome without diarrhea K58.9 ; Symptomatic premature menopause E28.310 ; History of nephrectomy Z90.5 and Neck pain M54.2 [place] [address] [id number] [place] [address] 93885- 0833 Sep, [place] [address] [place] [address] [id number] [place] [address] 58252- 4715 Sep, Depression F32.9 ; 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 ; Abnormal finding on CT scan R93.8 ; Irritable bowel syndrome without diarrhea K58.9 ; Symptomatic premature menopause E28.310 ; History of nephrectomy Z90.5 ; Neck pain M54.2 ; Arthralgia M25.50 ; Osteopenia M85.80 and Screening breast examination Z12.39 [place] [id number] [place] [address] 36869- 4436 Sep, [place] [address] [address] [id number] [place] [address] 57479- 1816 June, [place] [address] [place] [id number] [place] [address] 93851- 5482 Mar, Osteopenia M85.80 [place] [address] [address] [id number] [place] [address] 76846- 4653 Feb, Depression F32.9 ; 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 ; Abnormal finding on CT scan R93.8 ; Irritable bowel syndrome without diarrhea K58.9 ; Symptomatic premature menopause E28.310 ; History of nephrectomy Z90.5 ; Neck pain M54.2 and Arthralgia M25.50 [facility] [address] [place] [address] 72446- 1356 Feb, [facility] [id number] [place] [address] 35291- 0438 Feb, [facility] [id number] [place] [address] 89124- 7860 Jan, Depression F32.9 ; 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 [id number] [place] [address] 33443 -1512 Jan, Halie rash of groin B37.89 ; Antibiotic long-term use Z79.2 and Sinusitis 473.9 [facility] [id number] [place] [address] 91513- 7139 Oct, Unspecified breast screening V76.10 [facility] [id number] [place] [address] 88682- 2162 June, Sinusitis 473.9 [facility] [id number] [place] [address] 13217- 1698 May, [facility] [id number] [place] [address] 05413- 0865 May, [facility] [id number] [place] [address] 71886- 6797 Apr, [facility] [address] [place] [address] 67720- 1109 Mar, [facility] [id number] [place] [address] 48007- 6686 Mar, [facility] [place] [facility] [address] [id number] [place] [address]- 7017 Mar, [facility] [place] [facility] [address] [id number] [place] [address]- 7504 Mar, [facility] [place] [facility] [address] [facility] [id number] [place] [address]- 6684 Feb, [facility] [place] [facility] [address] [id number] [place] [address]- 3428 Feb, [facility] [place] [facility] [address] [id number] [place] [address]- 4920 Feb, [facility] [place] [facility] [address] [facility] [id number] [place] [address]- 7204 Feb, [facility] [place] [facility] [address] [facility] [id number] [place] [address]- 7897 Feb, [facility] [place] [facility] [address] [facility] [id number] [place] [address]- 0043 Feb, [facility] [place] [facility] [address] [facility] [id number] [place] [address]- 2272 Jan, [facility] [place] [facility] [address] [facility] [id number] [place] [address]- 6814 Jan, [facility] [place] [facility] [address] [facility] [id number] [place] [address]- 1554 Dec, [facility] [place] [facility] [address] [facility] [id number] [place] [address]- 8454 Dec, [facility] [place] [facility] [address] [id number] [place] [address]- 5139 Nov, [facility] [place] [facility] [address] [facility] [id number] [place] [address]- 5468 Nov, [facility] [place] [facility] [address] [facility] [id number], [place] [address]- 9848 Oct, [facility] [address] [facility] [id number], [place] [address]- 2646 Oct, [facility] [address] [facility] [id number], [place] [address]- 9122 Oct, [facility] [address] [facility] [id number], [place] [address]- 9970 Oct, [facility] [address] [facility] [id number], [place] [address]- 3951 Nov, [facility] [address] [id number], [place] [address]- 7234 Nov, [facility] [address] [facility] [id number], [place] [address]- 8493 Sep, [facility] [address] [facility] [id number], [place] [address]- 3771 Sep, [facility] [address], [place] [address]- 3469 Sep, [facility] [address], [place] [address]- 4667 Jul, [facility] [address], [place] [address]- 3377 June, [facility] [address], [place] [address]- 6194 June, [facility] [id number] [address]- 2812 May, [facility] [address] [facility] [id number], [place] [address]- 5064 May, [facility] [address], [place] [address]- 6872 Apr, IMMUNIZATIONS No Known Immunizations SOCIAL HISTORY Never Assessed REASON FOR VISIT Controlled Refill 01/02 PLAN OF CARE VITAL SIGNS MEDICATIONS Medication [...] Stage 4 Bowel Cancer-Dr Bauman, Dr Clement ([place]) Medical History Antibiotic long-term use Medical History [...]
--- OUTSIDE RECORDS SUMMARY | 2018-01-23 18:07 | XMS REPORT ---
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 01018753 Problem Irritable bowel syndrome without diarrhea K58.9 Active 66915374 Problem Hearing loss, bilateral H91.93 Active 07889536 Problem IBS (irritable bowel syndrome) K58.9 Active 07346324 Problem Generalized anxiety disorder F41.1 Active 011260088 Problem Vitamin D deficiency E55.9 Active 21777666 Problem Osteopenia M85.80 Active 616420862 Problem Symptomatic premature menopause E28.310 Active 460083009 Problem Arthralgia M25.50 Active 20504187 Problem History of nephrectomy Z90.5 Active 653014426 Problem Neck pain M54.2 Active 47143349 ALLERGIES No Information ENCOUNTERS Encounter Location Date Diagnosis [place] [address] [place] [address]51- 3458 Nov, Oste[address]85.80 [facility] [address] [place] [id number] [place] [address] 36660- 2680 Oct, [facility] [address] [place] [id number] [place] [address] 70660- 5794 Oct, [facility] [address] [place] [id number] [place] [address] 50809- 5641 Oct, Major depressive disorder, recurrent, moderate F33.1 and Generalized anxiety disorder F41.1 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 ; Generalized anxiety disorder F41.1 ; Vitamin D deficiency E55.9 and Major depressive disorder, recurrent, moderate F33.1 [place] [address] 71229- 7144 Aug, Generalized anxiety disorder F41.1 [place] [address] 58175- 7396 Jul, Osteopenia M85.80 [place] [address] 18518- 6035 June, Generalized anxiety disorder F41.1 [facility] [place] [address] [address] May, Acute nasopharyngitis J00 [facility] [place] [address] [address] May, Sore in nose J34.89 [place] [address] [place] [id number] [place] [address] 52727- 6628 Apr, Osteopenia M85.80 and Generalized anxiety disorder F41.1 [place] [address] [address]- 0313 Feb, [place] [address] 87039- 2939 Nov, Depression F32.9 ; Osteopenia M85.80 ; Generalized anxiety disorder F41.1 ; Irritable bowel syndrome without diarrhea K58.9 ; Vitamin D deficiency E55.9 ; Arthralgia M25.50 ; 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 ; General medical exam Z00.00 and Long-term use of high-risk medication Z79.899 [place] [address] [place] [id number] [place] [address] 35917- 7910 Sep, Depression F32.9 and Osteopenia M85.80 [place] [address] 60281- 4023 Aug, Depression F32.9 [place] [address] 53077- 2004 June, Depression F32.9 [place] [address] 14472- 0372 May, Depression F32.9 [place] [address] 10117- 9569 Mar, Depression F32.9 [place] [address] [place] [id number] [place] [address] 00440- 3489 Mar, Depression F32.9 ; 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 ; Irritable bowel syndrome without diarrhea K58.9 ; Symptomatic premature menopause E28.310 ; History of nephrectomy Z90.5 ; Neck pain M54.2 ; Non-healing skin lesion of nose L98.9 and Vitamin D deficiency E55.9 [place] [address] [place] [id number] [place] [address] 28431- 8140 Feb, [place] [address] [place] [id number] [place] [address] 13329- 2997 Jan, [place] [address] 82524- 9991 Dec, Hearing loss, bilateral H91.93 [place] [address] [place] [id number] [place] [address] 25038- 1123 Nov, [place] [address] [place] [address]- [address] Nov, [place] [address] [place] [id number] [place] [address] 49695- 2381 Oct, Depression F32.9 ; 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 ; Irritable bowel syndrome without diarrhea K58.9 ; Symptomatic premature menopause E28.310 ; History of nephrectomy Z90.5 and Neck pain M54.2 [place] [address] 70301- 1942 Sep, [place] [address] [place] [id number] [place] [address] 83385- 2879 Sep, Depression F32.9 ; 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 ; Abnormal finding on CT scan R93.8 ; Irritable bowel syndrome without diarrhea K58.9 ; Symptomatic premature menopause E28.310 ; History of nephrectomy Z90.5 ; Neck pain M54.2 ; Arthralgia M25.50 ; Osteopenia M85.80 and Screening breast examination Z12.39 [place] [address] [place] [id number] [place] [address] 37743- 7927 Sep, [place] [address] 46373- 5090 June, [place] [address] [place] [id number] [place] [address] 38089- 7393 Mar, Osteopenia M85.80 [place] [address] [place] [id number] [place] [address] 53790- 3834 Feb, Depression F32.9 ; 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 [address] [place] [id number] [place] [address] 97551- 1316 Jan, Depression F32.9 and Generalized anxiety disorder F41.1 [facility] [address] [place] [id number] [place] [address] 94960 -[address] Jan, Halie rash of groin B37.89 ; Antibiotic long-term use Z79.[address] [facility] [address] [place] [id number] [place] [address] 34028- 6146 Oct, Unspecified breast screening V76.10 [facility] [address] [place] [id number] [place] [address] 52857- 5672 June, Sinusitis 473.9 [place] [address] [place] [id number] [place] [address] 97755- 3724 May, [facility] [address] [place] [id number] [place] [address] 62615- 9519 May, [facility] [address] [place] [id number] [place] [address] 16494- 8436 Apr, [facility] [address] [place] [id number] [place] [address] 47188- 0386 Mar, [facility] [address] [place] [id number] [place] [address] 584093- 7975 Mar, [facility] [address] [place] [id number] [place] [address] 894306- 2176 Mar, [facility] [address] [place] [id number] [place] [address] 062338- 6796 Mar, [facility] [place] [facility] [address] [id number] [place] [address]- 6618 Feb, [facility] [place] [facility] [address] [id number] [place] [address]- 2835 Feb, [facility] [place] [facility] [address] [id number] [place] [address]- 8433 Feb, [facility] [place] [facility] [address] [id number] [place] [address]- 1654 Feb, [facility] [place] [facility] [address] [id number] [place] [address]- 9037 Feb, [facility] [place] [facility] [address] [id number] [place] [address]- 1512 Feb, [facility] [place] [facility] [address] [id number] [place] [address]- 6364 Jan, [facility] [place] [facility] [address] [id number] [place] [address]- 9087 Jan, [facility] [place] [facility] [address] [id number] [place] [address]- 3035 Dec, [facility] [place] [facility] [address] [id number] [place] [address]- 9211 Dec, [facility] [place] [facility] [address] [id number] [place] [address]- 7274 Nov, [facility] [place] [facility] [address] [id number] [place] [address]- 6080 Nov, [facility] [place] [facility] [address] [id number] [place] [address]- 7574 Oct, [facility] [place] [facility] [address] [id number] [place] [address]- 9529 Oct, [facility] [place] [facility] [address] [id number] [place] [address]- 6404 Oct, [facility] [place] [facility] [id number] [address] Oct, [facility] [address] [address] 4655 Nov, [facility] [address] [address]98 Nov, [facility] [address] [address] 80[address] Sep, [facility] [address] [place] [id number] [address]- 4732 Sep, [facility] [address] [place] [id number] [place] [address] 343173- 7463 Sep, [facility] [address] [place] [address] 59371- 2582 Jul, [facility] [address] [place] [id number] [place] [address] 71898- 4550 June, [facility] [address] [address] June, [facility] [address] May, [facility] [address] [address] May, [facility] [address] [address]- 6875 Apr, IMMUNIZATIONS No Known Immunizations SOCIAL HISTORY Never Assessed REASON FOR VISIT Refill request PLAN OF CARE VITAL SIGNS MEDICATIONS Medication Instructions Dosage Frequency Start Date End Date Duration Status Fosamax 70 MG Orally weekly 1 tablet 28 Active RESULTS No Results PROCEDURES No Known [...] Stage 4 Bowel Cancer-Dr Bauman, Dr Clement ([place]) Medical History Antibiotic long-term use Medical History [...]
--- OUTSIDE RECORDS SUMMARY | 2018-01-23 18:07 | XMS REPORT ---
Author Author SUMMER HUNG [facility] Address [address] [place] [address] Care Team Providers Care Ccnp Name Role Phone SUMMER HUNG Unavailable PROBLEMS ALLERGIES No Information ENCOUNTERS IMMUNIZATIONS No Known Immunizations SOCIAL HISTORY No smoking Hx information available REASON FOR VISIT PLAN OF CARE VITAL SIGNS MEDICATIONS Unknown Medications RESULTS No Results PROCEDURES No Known procedures INSTRUCTIONS MEDICATIONS ADMINISTERED No Known Medications MEDICAL (GENERAL) HISTORY
--- NOTE | 2018-01-23 18:11 | ED GI ---
General Chief Complaint: Abdominal/GI Problems Stated Complaint: LEFT SIDED PAIN Source of Information: Patient Exam Limitations: No Limitations History of Present Illness Date Seen by Provider: Jan 23, 2018 Time Seen by Provider: 18:10 Initial Comments To ER with reports of left-sided abdominal and flank pain. This began this morning. She denies nausea diarrhea or constipation. She denies dysuria. 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 Timing/Duration: 12 Hours Severity/Quality: Moderate Location: LUQ, LLQ Radiation: No Radiation Activities at Onset: None Associated Symptoms: Fever/Chills; No Nausea/Vomiting Allergies and Home Medications Allergies Coded Allergies: Sulfa (Sulfonamide Antibiotics) (Verified Allergy, Mild, RASH, 11/11/17) acetaminophen (Verified Adverse Reaction, Mild, N/V, 11/05/12) oxycodone HCl (Verified Adverse Reaction, Mild, N/V, 11/05/12) Home Medications Alendronate Sodium 70 Mg Tablet, 70 MG PO Sa, (Reported) Cholecalciferol (Vitamin D3) 5,000 Unit Capsule, 5,000 UNIT PO DAILY, (Reported) Clonazepam 1 Mg Tablet, 1 MG PO HS, (Reported) Duloxetine HCl 60 Mg Capsule.dr, 60 MG PO HS, (Reported) Pantoprazole Sodium 40 Mg Tablet.dr, 40 MG PO DAILY, (Reported) Tramadol HCl 50 Mg Tablet, 50 MG PO Q8H Prescribed by: NORBERT COE on 11/17/17 1219 Patient Home Medication List Home Medication List Reviewed: Yes Review of Systems Review of Systems Constitutional: see HPI EENTM: No Symptoms Reported Respiratory: No Symptoms Reported Cardiovascular: No Symptoms Reported Gastrointestinal: See HPI, Abdominal Pain; Denies Constipated, Denies Diarrhea , Denies Nausea Genitourinary: No Symptoms Reported Musculoskeletal: no symptoms reported Skin: no symptoms reported Psychiatric/Neurological: No Symptoms Reported Endocrine: No Symptoms Reported Past Ultvinj-Mlcgdc-Sxctra Hx Patient Social History Type Used: Cigars 2nd Hand Smoke Exposure: No Recent Foreign Travel: No Contact w/Someone Who Travel: No Recent Hopitalizations: Yes Immunizations Up To Date Tetanus Booster (TDap): Less than 5yrs PED Vaccines UTD: Yes Date of Influenza Vaccine: Nov 06, 2017 Seasonal Allergies Seasonal Allergies: No Past Medical History Surgeries: Yes (RIGHT NEPHRECTOMY--" KIDNEY", VENTRAL HERNIA REPAIR, BOWEL RECONSTRUT ) Abdominal, Adenoidectomy, Appendectomy, Ear Surgery, Gallbladder, Nephrectomy, Tonsillectomy Respiratory: No Currently Using CPAP: No Currently Using BIPAP: No Cardiac: No Neurological: No Reproductive Disorders: Yes (NICHOLS'S SYNDROME) Female Reproductive Disorders: Denies Sexually Transmitted Disease: No HIV/AIDS: No Genitourinary: Yes (S/P RIGHT NEPHRECTOMY FOR NON-FUNCTIONING KIDNEY) Kidney Infection, Bladder Infection, Kidney Stones, Polycystic Kidney Disease Gastrointestinal: Yes (HERNIA REPAIR, HEPATITIS A, gastric perf.) Abdominal Hernia, Colitis, Hepatitis, Gall Bladder Disease, Irritable Bowel Musculoskeletal: Yes Arthritis Endocrine: Yes (NICHOLS'S SYNDROME) HEENT: Yes Chronic Ear Infection Hearing Impairment: Hard of Hearing Cancer: Yes Colon Did You Recieve Any Treatments: No Psychosocial: Yes Anxiety, Depression Integumentary: No Blood Disorders: No Adverse Reaction/Blood Tranf: No Family Medical History SKIN CANCER 19 FATHER Cancer, Hypertension Physical Exam Vital Signs Vital Signs - First Documented 01/23/18 18:04 Temp 100.8 Pulse 124 Resp 20 B/P (MAP) 158/59 (92) Pulse Ox 98 O2 Delivery Room Air Capillary Refill : Height/Weight/BMI Height: 4'7.00" Weight: 122lbs. 1.0oz. 55.991738az; 28.4 BMI Method:Stated General Appearance: WD/WN, no apparent distress HEENT: PERRL/EOMI, normal ENT inspection Neck: non-tender, full range of motion Respiratory: normal breath sounds, no respiratory distress, no accessory muscle use Cardiovascular: regular rate, rhythm, no murmur Gastrointestinal: normal bowel sounds, soft, tenderness (left-sided abdominal tenderness to palpation.), other (she is tachycardic, febrile at 100.8.) Extremities: normal range of motion, non-tender Neurologic/Psychiatric: alert, normal mood/affect Skin: normal color, warm/dry Focused Exam Lactate Level 01/23/18 18:30: Lactic Acid Level 1.11 Lactic Acid Level Laboratory Tests Test 01/23/18 18:30 Lactic Acid Level 1.11 MMOL/L (0.50-2.00) Progress/Results/Core Measures Results/Orders Lab Results Laboratory Tests Test 01/23/18 18:12 01/23/18 18:30 Range/Units Urine Color YELLOW Urine Clarity CLEAR Urine pH 6 5-9 Urine Specific [place] 1.020 1.016-1.022 Urine Protein 2+ H NEGATIVE Urine Glucose (UA) NEGATIVE NEGATIVE Urine Ketones 1+ H NEGATIVE Urine Nitrite NEGATIVE NEGATIVE Urine Bilirubin NEGATIVE NEGATIVE Urine Urobilinogen 1 NORMAL MG/DL Urine Leukocyte Esterase 2+ H NEGATIVE Urine RBC (Auto) NEGATIVE NEGATIVE Urine RBC NONE /HPF Urine WBC 2-5 /HPF Urine Squamous Epithelial Cells 2-5 /HPF Urine Crystals NONE /LPF Urine Bacteria TRACE /HPF Urine Casts NONE /LPF Urine Mucus SMALL H /LPF Urine Culture Indicated NO White Blood Count 4.3 4.3-11.0 10^3/uL Red Blood Count 4.42 4.35-5.85 10^6/uL Hemoglobin 12.1 11.5-16.0 G/DL Hematocrit 36 35-52 % Mean Corpuscular Volume 82 80-99 FL Mean Corpuscular Hemoglobin 27 25-34 PG Mean Corpuscular Hemoglobin Concent 33 32-36 G/DL Red Cell Distribution Width 14.1 10.0-14.5 % Platelet Count 183 130-400 10^3/uL Mean Platelet Volume 10.0 7.4-10.4 FL Neutrophils (%) (Auto) 85 H 42-75 % Lymphocytes (%) (Auto) 7 L 12-44 % Monocytes (%) (Auto) 8 0-12 % Eosinophils (%) (Auto) 0 0-10 % Basophils (%) (Auto) 0 0-10 % Neutrophils # (Auto) 3.7 1.8-7.8 X 10^3 Lymphocytes # (Auto) 0.3 L 1.0-4.0 X 10^3 Monocytes # (Auto) 0.3 0.0-1.0 X 10^3 Eosinophils # (Auto) 0.0 0.0-0.3 10^3/uL Basophils # (Auto) 0.0 0.0-0.1 10^3/uL Neutrophils % (Manual) 86 % Lymphocytes % (Manual) 11 % Monocytes % (Manual) 3 % Eosinophils % (Manual) 0 % Basophils % (Manual) 0 % Band Neutrophils 0 % Blood Morphology Comment NORMAL Sodium Level 139 135-145 MMOL/L Potassium Level 4.1 3.6-5.0 MMOL/L Chloride Level 105 98-107 MMOL/L Carbon Dioxide Level 24 21-32 MMOL/L Anion Gap 10 5-14 MMOL/L Blood Urea Nitrogen 8 7-18 MG/DL Creatinine 0.85 0.60-1.30 MG/DL Estimat Glomerular Filtration Rate > 60 BUN/Creatinine Ratio 9 Glucose Level 162 H 70-105 MG/DL Lactic Acid Level 1.11 0.50-2.00 MMOL/L Calcium Level 9.0 8.5-10.1 MG/DL Corrected Calcium 9.0 8.5-10.1 MG/DL Total Bilirubin 0.8 0.1-1.0 MG/DL Aspartate Amino Transf (AST/SGOT) 167 H 5-34 U/L Alanine Aminotransferase (ALT/SGPT) 189 H 0-55 U/L Alkaline Phosphatase 289 H 40-136 U/L Total Protein 6.5 6.4-8.2 GM/DL Albumin 4.0 3.2-4.5 GM/DL My Orders Orders - STACY CERRATO APRN Cbc With Automated Diff (01/23/18 18:08) Comprehensive Metabolic Panel (01/23/18 18:08) Ua Culture If Indicated (01/23/18 18:08) Iv Heplock-Insert (Order) (01/23/18 18:08) Blood Culture (01/23/18 18:08) Lactic Acid Analyzer (01/23/18 18:08) Ct Abdomen/Pelvis W (01/23/18 18:08) Ns Iv 1000 Ml (Sodium Chloride 0.9%) (01/23/18 18:15) Ketorolac Injection (Toradol Injection) (01/23/18 18:15) Iohexol Injection (Omnipaque 350 Mg/Ml 1 (01/23/18 18:15) Contrast Received (Contrast Received) (01/23/18 18:15) Ns (Ivpb) (Sodium Chloride 0.9% Ivpb Bag (01/23/18 18:15) Manual Differential (01/23/18 18:30) Medications Given in ED Current Medications Medications Dose Ordered Sig/Nestor Route Start Time Stop Time Status Last Admin Dose Admin Iohexol 100 ml ONCE ONCE IV 01/23/18 18:15 01/23/18 18:26 DC 01/23/18 18:54 100 ML Ketorolac Tromethamine 15 mg ONCE ONCE IVP 01/23/18 18:15 01/23/18 18:16 DC 01/23/18 18:37 15 MG Sodium Chloride 100 ml ONCE ONCE IV 01/23/18 18:15 01/23/18 18:26 DC 01/23/18 18:54 80 ML Vital Signs/I&O 01/23/18 01/23/18 18:04 19:16 Temp 100.8 100.8 Pulse 124 124 Resp 20 20 B/P (MAP) 158/59 (92) 158/59 Pulse Ox 98 98 O2 Delivery Room Air Diagnostic Imaging Diagonstic Imaging: CT Comments NAME: DOV LOCKHART [facility] REC#: [id number] PT STATUS: REG ER : 1970 PHYSICIAN: STACY CERRATO CLAIMS ADMINISTRATOR ADMIT DATE: 01/23/18/ER Draft Date of Exam:01/23/18 CT ABDOMEN/PELVIS W PROCEDURE: CT abdomen and pelvis with contrast. TECHNIQUE: Multiple contiguous axial images were obtained through the abdomen and pelvis after administration of intravenous contrast. INDICATION: Left-sided abdominal pain with nausea and diarrhea. Correlation is made with recent CT from 01/05/2018. FINDINGS: Small nodule at lateral right middle lobe is stable at 4 mm. No discrete liver mass is seen. A small low density adjacent to the surface of the right lobe of the liver measures 14 mm x 10 mm compared with 16 mm x 12 mm on prior. Gallbladder is surgically absent. No biliary ductal dilatation is seen. The pancreas and spleen are unremarkable. No adrenal mass is seen. Right kidney appears to be surgically absent. 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 Aorta is non-aneurysmal. Postsurgical changes in the right lower quadrant are seen. Bowel loops are normal caliber. No obstruction is seen. There is no free fluid or free air identified. The bladder is unremarkable. Bony structures are not acute. IMPRESSION: Stable CT when compared with study from 01/05/2018. Postsurgical changes in the right abdomen are noted. No acute feature is identified. Dictated on workstation # [id number] Dict: 01/23/181906 Trans: 01/23/181918 [id number] Interpreted by: SILVIA MCGOWAN MD Electronically signed by: Departure Impression Primary Impression: Elevated liver enzymes Additional Impression: Left sided abdominal pain Disposition: 01 HOME, SELF-CARE Condition: Stable Departure-Patient Inst. Decision time for Depature: 19:24 Referrals: [facility] (PCP) Primary Care Physician SUMMER HUNG APRN (Family) Primary Care Physician Patient Instructions: Acute Abdomen (Belly Pain), Adult (DC) Add. Discharge Instructions: 1. Return to ER for any concerns 2. Follow-up with your doctor next week 3. All discharge instructions reviewed with patient and/or family. Voiced understanding. Work/School Note: Work Release Form Date Seen in the Emergency Department: Jan 23, 2018 Return to Work: Jan 23, 2018 STACY CERRATO APRN Jan 23, 2018 18:11
[2018-01-23] MEDS ORDERED: NS 100 ML (IVPB) BAG IV ONE (18:15)
[2018-01-23] MEDS ORDERED: KETOROLAC 30 MG/ML VIAL IVP ONE (18:15)
[2018-01-23] MEDS ORDERED: IOHEXOL 350 MG/ML 100 ML (OMNIPAQUE 350) VIAL IV ONE (18:15)
[2018-01-23] MEDS ORDERED: NS IV 1000 ML 1,000 ML IV SCH (18:15)
[2018-01-23] MEDS ORDERED: RECEIVED CONTRAST (Hold Metformin) IV SCH (18:15)
--- OUTSIDE RECORDS SUMMARY | 2018-01-23 18:15 | XMS REPORT | Continuity of Care Document ---
Author Author Formerly [facility] Address Unknown Phone Unavailable Allergies Active Description Code Type Severity Reaction Onset Reported/Identified Relationship to Patient Clinical Status Yes acetaminophen [id number] Drug Allergy Mild N/V 11/05/2012 Yes oxycodone HCl [id number] Drug Allergy Mild N/V 11/05/2012 Yes Sulfa (Sulfonamide Antibiotics) [id number] Drug Allergy Mild RASH 2017 Medications There is no data. Problems Date [...] SIMPLEX WITHOUT COMPLICATION 04/17/2010 684 IMPETIGO 04/17/2010 LIBERTDA OROSCO DO 684 IMPETIGO 04/17/2010 ARTHUR ARGUETA [...] ABDOMINAL PAIN, LEFT LOWER QUADRANT 10/30/2013 ELLIE CAR BODY INSPECTOR, CANDELARIO R 789.00 ABDOMINAL PAIN UNSPECIFIED SITE 10/30/2013 ELLIE CAR BODY INSPECTOR, CANDELARIO R 789.00 ABDOMINAL PAIN UNSPECIFIED SITE 10/30/2013 ELLIE CALDWELL, CANDELARIO R 789.00 ABDOMINAL PAIN UNSPECIFIED SITE 10/30/2013 LIBERTAD OROSCO DO K 789.00 ABDOMINAL PAIN UNSPECIFIED SITE 12/05/2013 ELLIE CALDWELL, CANDELARIO R 564.1 IRRITABLE BOWEL SYNDROME 12/05/2013 ARTHUR ARGUETA APRNINA R 564.1 IRRITABLE BOWEL SYNDROME 12/05/2013 LIBERTAD ORSOCO DO 564.1 IRRITABLE BOWEL SYNDROME 12/22/2013 STACY CERRATO CAR BODY INSPECTOR Ot 558.9 NONINF GASTROENTERIT NEC 12/22/2013 STACY CERRATO CAR BODY INSPECTOR Ot 789.04 ABDOMINAL PAIN, LEFT LOWER QUADRANT 01/28/2014 OPAL DAVIS MD Ot 455.0 INT HEMORRHOID W/O COMPL 01/28/2014 OPAL DAVIS MD Ot 455.3 EXT HEMORRHOID W/O COMPL 01/28/2014 OPAL DAVIS MD Ot 787.99 OTHER GI SYSTEM SYMPTOMS 03/04/2014 LIBERTAD OROSCO DO V07.4 HORMONE REPLACEMENT THERAPY (POSTMENOPAUSAL) 03/04/2014 LIBERTAD OROSCO DO V72.31 MACHINE SHORTHAND REPORTER EXAM, ROUTINE 03/04/2014 LIBERTAD OROSCO DO V72.62 [...] ACQUIRED ABSENCE OF KIDNEY 10/27/2015 LAWANDA SHAVER LEVER TENDER Ot Z12.31 ENCNTR SCREEN MAMMOGRAM FOR MALIGNANT NE 11/13/2015 LAWANDA SHAVER LEVER TENDER Ot Z12.31 ENCNTR SCREEN MAMMOGRAM FOR MALIGNANT NE 12/09/2016 OPAL DAVIS MD Ot V72.84 EXAM PRE-OPERATIVE NOS 12/09/2016 OROSCO DO, LIBERTAD K Ot V76.12 OTH SCREEN MAMMO-MALIGN NEOPLASM OF JORDAN 12/09/2016 Ot E28.310 SYMPTOMATIC PREMATURE MENOPAUSE 12/09/2016 Ot M85.80 OTH DISRD OF BONE DENSITY AND STRUCTURE, 12/09/2016 Ot 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, UNSPECIFIED 12/09/2016 MADLLAWANDA Vance LEVER TENDER Ot Z12.31 ENCNTR SCREEN MAMMOGRAM FOR MALIGNANT [...] 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, UNSPECIFIED 12/09/2016 MADLTOANLAWANDA Vance LEVER TENDER Ot Z12.31 ENCNTR SCREEN MAMMOGRAM FOR MALIGNANT [...] 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, UNSPECIFIED 08/15/2017 MADLAWANDA Woodard LEVER TENDER Ot Z12.31 ENCNTR SCREEN MAMMOGRAM FOR MALIGNANT [...] STATUS TO OTH DRUG/MEDS/BIOL SUB 10/17/2017 JOHANNA ARANGOURMILAA Iveth Ot Z90.5 ACQUIRED ABSENCE OF KIDNEY 10/17/2017 JOHANNA ARANGOURMILAA K Ot Z90.89 ACQUIRED ABSENCE OF OTHER [...] MAJOR DEPRESSIVE DISORDER, SINGLE EPISOD 10/19/2017 JOHANNA ANNITA Ot F41.9 ANXIETY DISORDER, UNSPECIFIED 10/19/2017 JOHANNA URMILAA Iveth Ot K52.9 NONINFECTIVE GASTROENTERITIS AND COLITIS 10/19/2017 JOHANNA ARANGO ANNITA K Ot 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, UNSPECIFIED 10/19/2017 JOHANNA ARANGO ANNITA K Ot R11.10 VOMITING, UNSPECIFIED 10/19/2017 JOHANNA ARANGO ANNITA K Ot Z85.038 PERSONAL HISTORY OF MALIGNANT NEOPLASM O 10/19/2017 JOHANNA ARANGOURMILAA Iveth Ot Z87.19 PERSONAL HISTORY OF OTHER DISEASES OF TH 10/19/2017 JOHANNA ARANGOURMILAA Iveth Ot Z87.442 PERSONAL HISTORY OF URINARY CALCULI 10/19/2017 JOHANNA ARANGO ANNITA Iveth Ot Z87.448 PERSONAL HISTORY OF OTHER DISEASES OF UR 10/19/2017 JOHANNA ARANGOURMILAA Iveth Ot Z88.2 ALLERGY STATUS TO SULFONAMIDES STATUS 10/19/2017 JOHANNA ARANGO ANNITA K Ot Z88.5 ALLERGY STATUS TO NARCOTIC AGENT STATUS 10/19/2017 JOHANNA ARANGO ANNITA Iveth Ot Z88.8 ALLERGY STATUS TO OTH DRUG/MEDS/BIOL SUB 10/19/2017 JOHANNA ARANGO ANNITA K Ot Z90.5 ACQUIRED ABSENCE OF KIDNEY 10/19/2017 JOHANNA URMILAA Iveth Ot Z90.89 ACQUIRED ABSENCE OF OTHER ORGANS 10/19/2017 JOHANNA ARANGOANNITA Ot Z98.890 OTHER SPECIFIED POSTPROCEDURAL STATES 11/17/2017 NORBERT COE DO Ot B15.9 HEPATITIS A WITHOUT HEPATIC COMA 11/17/2017 NORBERT COE DO Ot C7A.098 MALIGNANT CARCINOID TUMORS OF OTHER SITE 11/17/2017 NORBERT COE DO Ot F41.8 OTHER SPECIFIED ANXIETY DISORDERS 11/17/2017 NORBERT COE DO Ot K46.9 UNSPECIFIED ABDOMINAL HERNIA WITHOUT OBS 11/17/2017 NORBERT COE DO Ot K58.9 IRRITABLE BOWEL SYNDROME WITHOUT DIARRHE 11/17/2017 NORBERT COE DO B Ot K63.0 ABSCESS OF INTESTINE 11/17/2017 NORBERT COE DO B Ot K63.1 PERFORATION OF INTESTINE (NONTRAUMATIC) 11/17/2017 CAROLIN ARANGO NORBERT Yoli Ot Q61.3 POLYCYSTIC KIDNEY, UNSPECIFIED 11/17/2017 KALPANA COE DOIC Yoli Ot Z87.891 PERSONAL HISTORY OF NICOTINE DEPENDENCE 11/17/2017 CAROLIN ARANGO NORBERT Yoli Ot Z90.49 ACQUIRED ABSENCE OF OTHER SPECIFIED PART 11/17/2017 CAROLIN ARANGO NORBERT B Ot Z90.5 ACQUIRED ABSENCE OF KIDNEY 11/28/2017 NYA MENDEZ MD Ot 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 11/28/2017 NYA MENDEZ MD Ot 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 11/28/2017 NYA MENDEZ MD Ot C7B.09 SECONDARY CARCINOID TUMORS OF OTHER SITE 11/28/2017 NYA MENDEZ MD Ot Z90.5 ACQUIRED ABSENCE OF KIDNEY 11/28/2017 NYA MENDEZ MD Ot 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 11/28/2017 NYA MENDEZ MD Ot L92.9 GRANULOMATOUS DISORDER OF THE SKIN, SUBC 11/28/2017 NYA MENDEZ MD Ot 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, UNSPECIFIED 11/29/2017 NYA MENDEZ MD Ot 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 11/29/2017 NYA MENDEZ MD Ot 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 11/29/2017 NYA MENDEZ MD Ot C7B.09 SECONDARY CARCINOID TUMORS OF OTHER SITE 11/29/2017 NYA MENDEZ MD Ot Z90.5 ACQUIRED ABSENCE OF KIDNEY 12/01/2017 ISACCCARRIE DO, NORBERT B Ot R10.31 RIGHT LOWER QUADRANT PAIN 12/04/2017 NYA MENDEZ MD Ot 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 12/04/2017 NYA MENDEZ MD Ot 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 12/04/2017 NYA MENDEZ MD Ot C7B.09 SECONDARY CARCINOID TUMORS OF OTHER SITE 12/04/2017 NYA MENDEZ MD Ot Z90.5 ACQUIRED ABSENCE OF KIDNEY 12/05/2017 DELMAN DO, NORBERT B Ot K63.89 OTHER SPECIFIED DISEASES OF INTESTINE 12/05/2017 DELMAN DO, NORBERT B Ot R10.31 RIGHT LOWER QUADRANT PAIN 12/05/2017 DELMAN DO, NORBERT B Ot Z90.49 ACQUIRED ABSENCE OF OTHER SPECIFIED PART 12/05/2017 DELMAN DO, NORBERT B Ot R10.31 RIGHT LOWER QUADRANT PAIN 12/06/2017 DELMAN DO, NORBERT B Ot R10.31 RIGHT LOWER QUADRANT PAIN 12/14/2017 DELMAN DO, NROBERT B Ot K63.89 OTHER SPECIFIED DISEASES OF INTESTINE 12/14/2017 DELMAN DO, NORBERT B Ot R10.31 RIGHT LOWER QUADRANT PAIN 12/14/2017 DELMAN DO, NORBERT B Ot Z90.49 ACQUIRED ABSENCE OF OTHER SPECIFIED PART 01/05/2018 DELMAN DO, NOREBRT B Ot K63.89 OTHER SPECIFIED DISEASES OF INTESTINE 01/05/2018 DELMAN DO, NORBERT B Ot R10.31 RIGHT LOWER QUADRANT PAIN 01/05/2018 DELMAN DO, NORBERT B Ot Z90.49 ACQUIRED ABSENCE OF OTHER SPECIFIED PART 01/08/2018 NYA MENDEZ MD Ot 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 01/08/2018 NYA MENDEZ MD Ot L92.9 GRANULOMATOUS DISORDER OF THE SKIN, SUBC 01/08/2018 NYA MENDEZ MD Ot 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, UNSPECIFIED 01/08/2018 NYA MENDEZ MD Ot Z90.49 ACQUIRED ABSENCE OF OTHER SPECIFIED PART 01/11/2018 NYA MENDEZ MD Ot 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 01/11/2018 NYA MENDEZ MD Ot L92.9 GRANULOMATOUS DISORDER OF THE SKIN, SUBC 01/11/2018 NYA MENDEZ MD Ot 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, UNSPECIFIED 01/11/2018 NYA MENDEZ MD Ot Z90.49 ACQUIRED ABSENCE OF OTHER SPECIFIED PART 01/19/2018 NYA MENDEZ MD, Ot 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 01/19/2018 NYA MENDEZ MD, Ot L92.9 GRANULOMATOUS DISORDER OF THE SKIN, SUBC 01/19/2018 NYA MENDEZ MD, Ot 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, UNSPECIFIED 01/19/2018 NYA MENDEZ MD, Ot Z90.49 ACQUIRED ABSENCE OF OTHER SPECIFIED PART Procedures Code Description [place] [address] ROUTINE VENIPUNCTURE 09/21/2012 63953 CBC 09/21/2012 66614 LIPID PANEL 09/21/2012 72531 CMP 09/21/2012 [id number] GFR CALC (RESULT ONLY) 09/21/2012 61502 TSH 09/21/2012 55856 T4 FREE 09/21/2012 [id number] EXCISION OF ILEUM, OPEN APPROACH 08/04/2017 [id number] EXCISION OF CECUM, OPEN APPROACH 08/04/2017 [id number] REPAIR ABDOMINAL WALL, OPEN APPROACH 08/04/2017 [id number] EXCISION OF SMALL INTESTINE, OPEN APPROA 11/11/2017 [id number] EXCISION OF ILEUM, OPEN APPROACH 11/11/2017 [id number] EXCISION OF RIGHT LARGE INTESTINE, OPEN 11/11/2017 [id number] INSPECTION OF PERITONEAL CAVITY, PERC EN 11/11/2017 Results Test Result Range Comp. Metabolic Panel [...] identification NORMAL NR Comprehensive metabolic panel - 01/30/17 17:30 Serum [...] NRG Blood erythrocyte morphology finding identification NORMAL [facility] Comprehensive metabolic panel - 08/03/17 12:40 Serum [...] - 18:11 MRSA SCREEN RESULT MRSA ISOLATED NR Complete blood count (CBC) with automated white [...] culture - 10/12/17 20:05 Bacterial urine culture [id number] NRG COLONY COUNT . NRG FTX;REPORTABLE 40,000 CFU/ML NRG FREE TEXT ENTRY 2 NO SUSCEPTIBILITY PERFORMED NRG FREE TEXT ENTRY 3 FINAL REPORT 10-13-2017, 1705. NR Serum or plasma lactate measurement (moles/volume) - [...] RESULTS NEGATIVE FOR ANTIGEN AND TOXIN A/B [facility] Complete blood count (CBC) with automated [...] - 11/11/17 21:19 Lipase 34 U/L 8-78 Complete blood count (CBC) with automated white blood cell (WBC) differential - 11/12/17 03:10 Blood leukocytes automated count (number/volume) 11.9 10*3/uL 4.3-11.0 Blood erythrocytes automated count (number/volume) 4.47 10*6/uL 4.35-5.85 Venous blood hemoglobin measurement (mass/volume) 12.8 g/dL 11.5-16.0 Blood hematocrit (volume fraction) 38 % 35-52 Automated erythrocyte mean corpuscular volume 85 [foz_us] 80-99 Automated erythrocyte mean corpuscular hemoglobin (mass per erythrocyte) 29 pg 25-34 Automated erythrocyte mean corpuscular hemoglobin concentration measurement ( mass/volume) 34 g/dL 32-36 Automated erythrocyte distribution width ratio 13.1 % 10.0-14.5 Automated blood platelet count (count/volume) 163 10*3/uL 130-400 Automated blood platelet mean volume measurement 10.0 [foz_us] 7.4-10.4 Automated blood neutrophils/100 leukocytes 91 % 42-75 Automated blood lymphocytes/100 leukocytes 3 % 12-44 Blood monocytes/100 leukocytes 6 % 0-12 Automated blood eosinophils/100 leukocytes 0 % 0-10 Automated blood basophils/100 leukocytes 0 % 0-10 Blood neutrophils automated count (number/volume) 10.9 10*3 1.8-7.8 Blood lymphocytes automated count (number/volume) 0.4 10*3 1.0-4.0 Blood monocytes automated count (number/volume) 0.7 10*3 0.0-1.0 Automated eosinophil count 0.0 10*3/uL 0.0-0.3 Automated blood basophil count (count/volume) 0.0 10*3/uL 0.0-0.1 Comprehensive metabolic panel - 11/12/17 03:10 Serum or plasma sodium measurement (moles/volume) 141 mmol/L 135-145 Serum or plasma potassium measurement (moles/volume) 4.2 mmol/L 3.6-5.0 Serum or plasma chloride measurement (moles/volume) 110 mmol/L 98-107 Carbon dioxide 23 mmol/L 21-32 Serum or plasma anion gap determination (moles/volume) 8 mmol/L 5-14 Serum or plasma urea nitrogen measurement (mass/volume) 15 mg/dL 7-18 Serum or plasma creatinine measurement (mass/volume) 0.77 mg/dL 0.60-1.30 Serum or plasma urea nitrogen/creatinine mass ratio 19 NRG Serum or plasma creatinine measurement with calculation of estimated glomerular filtration rate > NRG Serum or plasma glucose measurement (mass/volume) 123 mg/dL 70-105 Serum or plasma calcium measurement (mass/volume) 8.1 mg/dL 8.5-10.1 Serum or plasma total bilirubin measurement (mass/volume) 1.7 mg/dL 0.1-1.0 Serum or plasma alkaline phosphatase measurement (enzymatic activity/volume) 91 U/L 40-136 Serum or plasma aspartate aminotransferase measurement (enzymatic activity/ volume) 103 U/L 5-34 Serum or plasma alanine aminotransferase measurement (enzymatic activity/volume ) 60 U/L 0-55 Serum or plasma protein measurement (mass/volume) 5.6 g/dL 6.4-8.2 Serum or plasma albumin measurement (mass/volume) 3.5 g/dL 3.2-4.5 CALCIUM CORRECTED 8.5 mg/dL 8.5-10.1 Blood manual differential performed detection - 11/12/17 03:10 Blood monocytes/100 leukocytes 3 % NRG Manual blood segmented neutrophils/100 leukocytes 96 % NRG Manual blood lymphocytes/100 leukocytes 4 % NRG Blood erythrocyte morphology finding identification NORMAL NR Automated blood complete blood count (hemogram) panel - 10/08/18 05:05 Blood leukocytes automated count (number/volume) 10.5 10*3/uL 4.3-11.0 Blood erythrocytes automated count (number/volume) 3.79 10*6/uL 4.35-5.85 Venous blood hemoglobin measurement (mass/volume) 11.5 g/dL 11.5-16.0 Blood hematocrit (volume fraction) 33 % 35-52 Automated erythrocyte mean corpuscular volume 88 [foz_us] 80-99 Automated erythrocyte mean corpuscular hemoglobin (mass per erythrocyte) 30 pg 25-34 Automated erythrocyte mean corpuscular hemoglobin concentration measurement ( mass/volume) 35 g/dL 32-36 Automated erythrocyte distribution width ratio 13.3 % 10.0-14.5 Automated blood platelet count (count/volume) 136 10*3/uL 130-400 Automated blood platelet mean volume measurement 10.5 [foz_us] 7.4-10.4 Comprehensive metabolic panel - 11/13/17 05:05 Serum or plasma sodium measurement (moles/volume) 143 mmol/L 135-145 Serum or plasma potassium measurement (moles/volume) 3.1 mmol/L 3.6-5.0 Serum or plasma chloride measurement (moles/volume) 115 mmol/L 98-107 Carbon dioxide 17 mmol/L 21-32 Serum or plasma anion gap determination (moles/volume) 11 mmol/L 5-14 Serum or plasma urea nitrogen measurement (mass/volume) 11 mg/dL 7-18 Serum or plasma creatinine measurement (mass/volume) 0.61 mg/dL 0.60-1.30 Serum or plasma urea nitrogen/creatinine mass ratio 18 NRG Serum or plasma creatinine measurement with calculation of estimated glomerular filtration rate > NRG Serum or plasma glucose measurement (mass/volume) 82 mg/dL 70-105 Serum or plasma calcium measurement (mass/volume) 7.3 mg/dL 8.5-10.1 Serum or plasma total bilirubin measurement (mass/volume) 1.0 mg/dL 0.1-1.0 Serum or plasma alkaline phosphatase measurement (enzymatic activity/volume) 105 U/L 40-136 Serum or plasma aspartate aminotransferase measurement (enzymatic activity/ volume) 45 U/L 5-34 Serum or plasma alanine aminotransferase measurement (enzymatic activity/volume ) 87 U/L 0-55 Serum or plasma protein measurement (mass/volume) 5.4 g/dL 6.4-8.2 Serum or plasma albumin measurement (mass/volume) 3.1 g/dL 3.2-4.5 CALCIUM CORRECTED 8.0 mg/dL 8.5-10.1 Methicillin resistant Staphylococcus aureus (MRSA) screening culture - 12:15 Methicillin resistant Staphylococcus aureus (MRSA) screening culture NEG NRG Urine beta human chorionic gonadotropin (hCG) measurement - 11/13/17 13:21 Urine beta human chorionic gonadotropin (hCG) measurement NEGATIVE NEGATIVE Automated blood complete blood count (hemogram) panel - 11/14/17 05:19 Blood leukocytes automated count (number/volume) 10.8 10*3/uL 4.3-11.0 Blood erythrocytes automated count (number/volume) 3.74 10*6/uL 4.35-5.85 Venous blood hemoglobin measurement (mass/volume) 10.9 g/dL 11.5-16.0 Blood hematocrit (volume fraction) 33 % 35-52 Automated erythrocyte mean corpuscular volume 89 [foz_us] 80-99 Automated erythrocyte mean corpuscular hemoglobin (mass per erythrocyte) 29 pg 25-34 Automated erythrocyte mean corpuscular hemoglobin concentration measurement ( mass/volume) 33 g/dL 32-36 Automated erythrocyte distribution width ratio 13.9 % 10.0-14.5 Automated blood platelet count (count/volume) 188 10*3/uL 130-400 Automated blood platelet mean volume measurement 10.6 [foz_us] 7.4-10.4 Comprehensive metabolic panel - 11/14/17 05:19 Serum or plasma sodium measurement (moles/volume) 141 mmol/L 135-145 Serum or plasma potassium measurement (moles/volume) 3.4 mmol/L 3.6-5.0 Serum or plasma chloride measurement (moles/volume) 113 mmol/L 98-107 Carbon dioxide 18 mmol/L 21-32 Serum or plasma anion gap determination (moles/volume) 10 mmol/L 5-14 Serum or plasma urea nitrogen measurement (mass/volume) 11 mg/dL 7-18 Serum or plasma creatinine measurement (mass/volume) 0.64 mg/dL 0.60-1.30 Serum or plasma urea nitrogen/creatinine mass ratio 17 NRG Serum or plasma creatinine measurement with calculation of estimated glomerular filtration rate > NRG Serum or plasma glucose measurement (mass/volume) 121 mg/dL 70-105 Serum or plasma calcium measurement (mass/volume) 7.3 mg/dL 8.5-10.1 Serum or plasma total bilirubin measurement (mass/volume) 0.6 mg/dL 0.1-1.0 Serum or plasma alkaline phosphatase measurement (enzymatic activity/volume) 97 U/L 40-136 Serum or plasma aspartate aminotransferase measurement (enzymatic activity/ volume) 32 U/L 5-34 Serum or plasma alanine aminotransferase measurement (enzymatic activity/volume ) 71 U/L 0-55 Serum or plasma protein measurement (mass/volume) 5.4 g/dL 6.4-8.2 Serum or plasma albumin measurement (mass/volume) 3.0 g/dL 3.2-4.5 CALCIUM CORRECTED 8.1 mg/dL 8.5-10.1 Automated blood complete blood count (hemogram) panel - 11/15/17 05:20 Blood leukocytes automated count (number/volume) 7.6 10*3/uL 4.3-11.0 Blood erythrocytes automated count (number/volume) 3.20 10*6/uL 4.35-5.85 Venous blood hemoglobin measurement (mass/volume) 9.7 g/dL 11.5-16.0 Blood hematocrit (volume fraction) 28 % 35-52 Automated erythrocyte mean corpuscular volume 88 [foz_us] 80-99 Automated erythrocyte mean corpuscular hemoglobin (mass per erythrocyte) 30 pg 25-34 Automated erythrocyte mean corpuscular hemoglobin concentration measurement ( mass/volume) 34 g/dL 32-36 Automated erythrocyte distribution width ratio 13.3 % 10.0-14.5 Automated blood platelet count (count/volume) 203 10*3/uL 130-400 Automated blood platelet mean volume measurement 10.0 [foz_us] 7.4-10.4 Comprehensive metabolic panel - 11/15/17 05:20 Serum or plasma sodium measurement (moles/volume) 141 mmol/L 135-145 Serum or plasma potassium measurement (moles/volume) 2.9 mmol/L 3.6-5.0 Serum or plasma chloride measurement (moles/volume) 112 mmol/L 98-107 Carbon dioxide 20 mmol/L 21-32 Serum or plasma anion gap determination (moles/volume) 9 mmol/L 5-14 Serum or plasma urea nitrogen measurement (mass/volume) 7 mg/dL 7-18 Serum or plasma creatinine measurement (mass/volume) 0.54 mg/dL 0.60-1.30 Serum or plasma urea nitrogen/creatinine mass ratio 13 NRG Serum or plasma creatinine measurement with calculation of estimated glomerular filtration rate > NRG Serum or plasma glucose measurement (mass/volume) 98 mg/dL 70-105 Serum or plasma calcium measurement (mass/volume) 7.0 mg/dL 8.5-10.1 Serum or plasma total bilirubin measurement (mass/volume) 0.5 mg/dL 0.1-1.0 Serum or plasma alkaline phosphatase measurement (enzymatic activity/volume) 87 U/L 40-136 Serum or plasma aspartate aminotransferase measurement (enzymatic activity/ volume) 17 U/L 5-34 Serum or plasma alanine aminotransferase measurement (enzymatic activity/volume ) 43 U/L 0-55 Serum or plasma protein measurement (mass/volume) 5.0 g/dL 6.4-8.2 Serum or plasma albumin measurement (mass/volume) 2.8 g/dL 3.2-4.5 CALCIUM CORRECTED 8.0 mg/dL 8.5-10.1 Automated blood complete blood count (hemogram) panel - 11/16/17 04:31 Blood leukocytes automated count (number/volume) 6.6 10*3/uL 4.3-11.0 Blood erythrocytes automated count (number/volume) 3.26 10*6/uL 4.35-5.85 Venous blood hemoglobin measurement (mass/volume) 9.6 g/dL 11.5-16.0 Blood hematocrit (volume fraction) 28 % 35-52 Automated erythrocyte mean corpuscular volume 87 [foz_us] 80-99 Automated erythrocyte mean corpuscular hemoglobin (mass per erythrocyte) 29 pg 25-34 Automated erythrocyte mean corpuscular hemoglobin concentration measurement ( mass/volume) 34 g/dL 32-36 Automated erythrocyte distribution width ratio 13.1 % 10.0-14.5 Automated blood platelet count (count/volume) 206 10*3/uL 130-400 Automated blood platelet mean volume measurement 9.7 [foz_us] 7.4-10.4 Comprehensive metabolic panel - 11/16/17 04:31 Serum or plasma sodium measurement (moles/volume) 139 mmol/L 135-145 Serum or plasma potassium measurement (moles/volume) 3.0 mmol/L 3.6-5.0 Serum or plasma chloride measurement (moles/volume) 109 mmol/L 98-107 Carbon dioxide 20 mmol/L 21-32 Serum or plasma anion gap determination (moles/volume) 10 mmol/L 5-14 Serum or plasma urea nitrogen measurement (mass/volume) 4 mg/dL 7-18 Serum or plasma creatinine measurement (mass/volume) 0.48 mg/dL 0.60-1.30 Serum or plasma urea nitrogen/creatinine mass ratio 8 NRG Serum or plasma creatinine measurement with calculation of estimated glomerular filtration rate > NRG Serum or plasma glucose measurement (mass/volume) 86 mg/dL 70-105 Serum or plasma calcium measurement (mass/volume) 7.7 mg/dL 8.5-10.1 Serum or plasma total bilirubin measurement (mass/volume) 0.5 mg/dL 0.1-1.0 Serum or plasma alkaline phosphatase measurement (enzymatic activity/volume) 81 U/L 40-136 Serum or plasma aspartate aminotransferase measurement (enzymatic activity/ volume) 15 U/L 5-34 Serum or plasma alanine aminotransferase measurement (enzymatic activity/volume ) 35 U/L 0-55 Serum or plasma protein measurement (mass/volume) 5.6 g/dL 6.4-8.2 Serum or plasma albumin measurement (mass/volume) 3.0 g/dL 3.2-4.5 CALCIUM CORRECTED 8.5 mg/dL 8.5-10.1 Whole blood basic metabolic panel - 11/17/17 10:10 Serum or plasma sodium measurement (moles/volume) 141 mmol/L 135-145 Serum or plasma potassium measurement (moles/volume) 3.2 mmol/L 3.6-5.0 Serum or plasma chloride measurement (moles/volume) 108 mmol/L 98-107 Carbon dioxide 24 mmol/L 21-32 Serum or plasma anion gap determination (moles/volume) 9 mmol/L 5-14 Serum or plasma urea nitrogen measurement (mass/volume) 5 mg/dL 7-18 Serum or plasma creatinine measurement (mass/volume) 0.52 mg/dL 0.60-1.30 Serum or plasma urea nitrogen/creatinine mass ratio 10 NRG Serum or plasma creatinine measurement with calculation of estimated glomerular filtration rate > NRG Serum or plasma glucose measurement (mass/volume) 99 mg/dL 70-105 Serum or plasma calcium measurement (mass/volume) 8.3 mg/dL 8.5-10.1 Automated blood complete blood count (hemogram) panel - 12/01/17 08:45 Blood leukocytes automated count (number/volume) 5.5 10*3/uL 4.3-11.0 Blood erythrocytes automated count (number/volume) 3.70 10*6/uL 4.35-5.85 Venous blood hemoglobin measurement (mass/volume) 10.5 g/dL 11.5-16.0 Blood hematocrit (volume fraction) 32 % 35-52 Automated erythrocyte mean corpuscular volume 85 [foz_us] 80-99 Automated erythrocyte mean corpuscular hemoglobin (mass per erythrocyte) 28 pg 25-34 Automated erythrocyte mean corpuscular hemoglobin concentration measurement ( mass/volume) 33 g/dL 32-36 Automated erythrocyte distribution width ratio 12.8 % 10.0-14.5 Automated blood platelet count (count/volume) 297 10*3/uL 130-400 Automated blood platelet mean volume measurement 9.3 [foz_us] 7.4-10.4 PT panel in platelet poor plasma by coagulation assay - 12/01/17 08:45 Prothrombin time (PT) in platelet poor plasma by coagulation assay 14.2 s 12.2-14.7 INR in platelet poor plasma or blood by coagulation assay 1.1 0.8-1.4 Activated partial thromboplastin time (aPTT) in platelet poor plasma bycoagulation assay - 12/01/17 08:45 Activated partial thromboplastin time (aPTT) in platelet poor plasma bycoagulation assay 35 s 24-35 Bacteria identification in isolate by anaerobe culture - 12/01/17 09:41 FREE TEXT EXTERNAL NOT C PERFRINGENS NRG QUANTITY OF GROWTH . NRG Bacteria identification in isolate by anaerobe culture SEE COMMEN NRG Gram stain microscopy - 12/01/17 09:41 Gram stain microscopy No bacteria seen NRG Bacteria identification in wound by culture - 12/01/17 09:41 Bacteria identification in wound by culture NG NRG C DIFFICILE AG + TOXIN A/B. - 01/10/18 08:00 RESULTS NEGATIVE FOR ANTIGEN AND TOXIN A/B NR [id number] - 01/10/18 08:00 [id number] SEE REPORT NRG QUANTITY OF GROWTH . NRG Stool bacteria identification by culture - 01/10/18 08:00 QUANTITY OF GROWTH . NRG Stool bacteria identification by culture SEE COMMEN NRG Encounters ACCT No. Visit Date/Time Discharge Status Pt. Type Provider Facility Loc./Unit Complaint [id number] 03/05/2014 08:11:00 03/05/2014 23:59:59 CLS Outpatient LIBERTAD OROSCO DO [id number] 01/07/2014 10:03:00 01/07/2014 23:59:59 CLS Outpatient CANDELARIO ARGUETA APRN [id number] 12/05/2013 09:07:00 12/05/2013 23:59:59 CLS Outpatient CANDELARIO ARGUETA APRN [id number] 10/30/2013 13:49:00 10/30/2013 23:59:59 CLS Outpatient CANDELARIO ARGUETA APRN [id number] 09/21/2012 10:50:00 09/21/2012 23:59:59 CLS Outpatient LIBERTAD OROSCO DO [id number] 05/23/2012 10:43:00 Document Registration [id number] 11/09/2016 08:41:00 Document Registration [id number] 08/31/2017 12:20:00 08/31/2017 23:59:59 CLS Outpatient LAWANDA SHAVER APRN [facility] [id number] 11/08/2016 08:40:00 Document Registration [id number] 03/11/2016 08:41:00 Document Registration [id number] 01/10/2018 12:52:00 01/10/2018 23:59:59 CLS Outpatient NYA MENDEZ MD [facility] ONC [id number] 01/09/2018 11:26:00 01/09/2018 23:59:59 CLS Outpatient NORBERT COE DO [facility] LAB DIARRHEA [id number] 01/05/2018 10:24:00 01/05/2018 23:59:59 CLS Outpatient NYA MENDEZ MD [facility] RAD MALIGNANT CARCINOID TUMOR OF THE CECUM,NICHOLS SYND [id number] 12/01/2017 07:20:00 12/01/2017 12:51:00 DIS Outpatient NORBERT COE DO [facility] RAD RT LOWE QUAD PAIN,APD ABSCESS [id number] 11/30/2017 16:02:00 11/30/2017 23:59:59 CLS Outpatient ISACCCARRIE NORBERT ARANGO [facility] RAD RT LOWER QUAD PAIN [id number] 10/11/2017 10:58:00 11/28/2017 00:01:00 DIS Outpatient NYA MENDEZ MD [facility] ONC [id number] 11/11/2017 22:30:00 11/17/2017 13:30:00 DIS Inpatient CAROLIN ARANGONORBERT B [facility] 4TH BOWEL MICRPERFERATION [id number] 10/17/2017 00:34:00 10/17/2017 03:35:00 DIS Emergency JOHANNA ANNITA ARANGO [facility] ER VOMITING,THINKS OVER MEDICATED [id number] 10/12/2017 20:43:00 10/16/2017 12:45:00 DIS Inpatient CAROLIN NORBERT ARANGO [facility] 4TH SEPSIS,ABD PAIN [id number] 10/03/2017 08:08:00 10/03/2017 23:59:59 CLS Outpatient NYA MENDEZ MD [facility] RAD MALIGNANT CARCINOID TUMOR OF THE CECUM,NICHOLS SYND [id number] 09/28/2017 09:00:00 09/28/2017 23:59:59 CLS Preadmit NYA MENDEZ MD [facility] CARD MALIGNANT CARCINOID TUMOR OF THE CECUM,NICHOLS SYND [id number] 09/27/2017 09:00:00 09/27/2017 23:59:59 CLS Alisamit NYA MENDEZ MD [facility] CARD MALIGNANT CARCINOID TUMOR OF THE CECUM,NICHOLS SYND [id number] 09/14/2017 12:00:00 09/14/2017 23:59:59 CLS NYA Elliott MD [facility] CARD [id number] 09/01/2017 12:55:00 09/01/2017 23:59:59 CLS NYA Elliott MD [facility] CARD MALIGNANT CARCINOID TUMOR OF THE CECUM [id number] 09/01/2017 12:50:00 09/01/2017 23:59:59 CLS Outpatient NYA MENDEZ MD [facility] RAD MALIGNANT CARCINOID TUMOR OF THE CECUM [id number] 08/15/2017 11:01:00 08/15/2017 23:59:59 CLS Outpatient NORBERT COE DO [facility] LAB CARCINOID TUMOR [id number] 08/03/2017 14:30:00 08/07/2017 13:15:00 DIS Inpatient NORBERT COE DO [facility] 4TH SMALL BOWEL OBSTRUCTION [id number] 01/30/2017 16:56:00 01/30/2017 20:17:00 DIS Emergency DURGA GRANADOS, ROSAMARIA Ortega [facility] ER DIARRHEA,VOMITING, COUGH [id number] 12/09/2016 04:37:00 12/09/2016 07:37:00 DIS Emergency JOHANNA ANNITA K [facility] ER LEFT SIDE PAIN,NAUSEA [id number] 10/26/2015 07:07:00 10/26/2015 23:59:59 CLS Outpatient LAWANDA SHAVER LEVER TENDER [facility] RAD SCREENING [id number] 06/20/2015 08:24:00 06/20/2015 11:01:00 DIS Emergency TUCKER GRANADOS, GALILEO Velasquez [facility] ER NAUSEA,VOMITING,L SIDE PAIN [id number] 12/26/2014 02:35:00 12/26/2014 05:29:00 DIS Emergency JOHANNA ANNITA Iveth [facility] ER LEFT SIDE HURTS [id number] 10/22/2014 10:14:00 10/22/2014 23:59:59 CLS Outpatient ANA LUISA LIBERTAD ARANGO Iveth [facility] RAD SCREENING [id number] 01/28/2014 09:12:00 01/28/2014 12:30:00 DIS Outpatient OPAL DAVIS MD [facility] SDC ABD PAIN [id number] 01/24/2014 05:50:00 01/24/2014 23:59:59 CLS Outpatient OPAL DAVIS MD [facility] PREOP ABD PAIN [id number] 12/22/2013 11:15:00 12/22/2013 13:14:00 DIS Emergency STACY CERRATO APRN [facility] ER PAIN IN LOWER ABD ON L SIDE [id number] 10/29/2013 09:38:00 10/29/2013 11:54:00 DIS Emergency KIMBERLY WHITEHEAD MD [facility] ER LEFT SIDE PAIN/ CRAMPING [id number] 09/19/2013 10:40:00 09/19/2013 12:30:00 DIS Emergency SEVERO LAN DO [facility] ER DIZZINESS [id number] 04/03/2013 16:17:00 04/03/2013 19:12:00 DIS Emergency ANNITA SPENCER DO [facility] ER N/V/D [id number] 11/05/2012 16:53:00 11/05/2012 20:19:00 DIS Emergency KIMBERLY WHITEHEAD MD [facility] ER [id number] 02/26/2015 10:36:00 Document Registration
[2018-01-23 18:22] LABS: BILIRUBIN,URINE NEGATIVE (NEGATIVE); CLARITY,URINE CLEAR; COLOR,URINE YELLOW; GLUCOSE, URINE (UA) NEGATIVE (NEGATIVE); KETONES,URINE 1+ (NEGATIVE); LEUKOCYTE ESTERASE ,URINE 2+ (NEGATIVE); NITRITE,URINE NEGATIVE (NEGATIVE); PH,URINE 6 (5-9); PROTEIN,URINE 2+ (NEGATIVE); UROBILINOGEN,URINE 1 MG/DL (NORMAL)
[2018-01-23 18:35] LABS: BACTERIA,URINE TRACE /HPF
[2018-01-23 18:40] LABS: BASOPHILS % (AUTO) 0 % (0-10); EOSINOPHILS % (AUTO) 0 % (0-10); HEMATOCRIT 36 % (35-52); HEMOGLOBIN 12.1 G/DL (11.5-16.0); LYMPHOCYTES # (AUTO) 0.3 X 10^3 (1.0-4.0); LYMPHOCYTES % (AUTO) 7 % (12-44); MEAN CORPUSCULAR HEMOGLOBIN 27 PG (25-34); MEAN CORPUSCULAR HGB CONC 33 G/DL (32-36); MEAN CORPUSCULAR VOLUME 82 FL (80-99); MONOCYTES # (AUTO) 0.3 X 10^3 (0.0-1.0); MONOCYTES % (AUTO) 8 % (0-12); NEUTROPHILS # (AUTO) 3.7 X 10^3 (1.8-7.8); NEUTROPHILS % (AUTO) 85 % (42-75); PLATELET COUNT 183 10^3/uL (130-400); RED BLOOD COUNT 4.42 10^6/uL (4.35-5.85); RED CELL DISTRIBUTION WIDTH 14.1 % (10.0-14.5); WHITE BLOOD COUNT 4.3 10^3/uL (4.3-11.0)
[2018-01-23 18:59] LABS: ALANINE AMINOTRANSFERASE 189 U/L (0-55); ALKALINE PHOSPHATASE 289 U/L (40-136); BILIRUBIN,TOTAL 0.8 MG/DL (0.1-1.0); BUN/CREATININE RATIO 9; CARBON DIOXIDE 24 MMOL/L (21-32); CHLORIDE 105 MMOL/L (98-107); CREATININE SERUM 0.85 MG/DL (0.60-1.30); GFR ESTIMATED > 60; GLUCOSE 162 MG/DL (70-105); POTASSIUM 4.1 MMOL/L (3.6-5.0); SODIUM 139 MMOL/L (135-145); TOTAL PROTEIN 6.5 GM/DL (6.4-8.2)
[2018-01-23 19:13] LABS: BAND NEUTROPHILS 0 %; BASOPHILS % (MANUAL) 0 %; EOSINOPHILS % (MANUAL) 0 %; LYMPHOCYTES % (MANUAL) 11 %; MONOCYTES % (MANUAL) 3 %; NEUTROPHILS % (MANUAL) 86 %
[2018-01-23 19:14] LABS: RBC MORPH NORMAL
--- NOTE | 2018-01-23 19:19 | Diagnostic Imaging Report ---
PROCEDURE: CT abdomen and pelvis with contrast. TECHNIQUE: Multiple contiguous axial images were obtained through the abdomen and pelvis after administration of intravenous contrast. INDICATION: Left-sided abdominal pain with nausea and diarrhea. Correlation is made with recent CT from 01/05/2018. FINDINGS: Small nodule at lateral right middle lobe is stable at 4 mm. No discrete liver mass is seen. A small low density adjacent to the surface of the right lobe of the liver measures 14 mm x 10 mm compared with 16 mm x 12 mm on prior. Gallbladder is surgically absent. No biliary ductal dilatation is seen. The pancreas and spleen are unremarkable. No adrenal mass is seen. Right kidney appears to be surgically absent. 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 Aorta is non-aneurysmal. Postsurgical changes in the right lower quadrant are seen. Bowel loops are normal caliber. No obstruction is seen. There is no free fluid or free air identified. The bladder is unremarkable. Bony structures are not acute. IMPRESSION: Stable CT when compared with study from 01/05/2018. Postsurgical changes in the right abdomen are noted. No acute feature is identified. Dictated by: Dictated on workstation # [id number]
[2018-01-23 19:38] VITALS: BP 158/59
== END 2018-01-23 19:43 | disposition home or self-care (01) ==
LOC: EDUNIT# 18:00 → ER 18:01
DX: R10.12 Left upper quadrant pain (principal); R10.32 Left lower quadrant pain; R94.5 Abnormal results of liver function studies; F41.9 Anxiety disorder, unspecified; F32.9 Major depressive disorder, single episode, unspecified; Z88.2 Allergy status to sulfonamides; Z88.5 Allergy status to narcotic agent; Z88.8 Allergy status to other drugs, medicaments and biological substances; Z90.49 Acquired absence of other specified parts of digestive tract; Z80.8 Family history of malignant neoplasm of other organs or systems; Z90.89 Acquired absence of other organs; Z98.890 Other specified postprocedural states; Z90.5 Acquired absence of kidney; Z87.448 Personal history of other diseases of urinary system; Z87.440 Personal history of urinary (tract) infections; Z87.19 Personal history of other diseases of the digestive system; Z85.038 Personal history of other malignant neoplasm of large intestine
CPT/HCPCS: 36415; 74177; 80053; 81000; 83605; 85007; 85027; 87040

== ENCOUNTER 2018-03-22 09:43 | Outpatient (RCR) | payer OTHER ==
[2018-01-03 10:04] LABS: BASOPHILS % (AUTO) 0 % (0-10); EOSINOPHILS % (AUTO) 1 % (0-10); HEMATOCRIT 39 % (35-52); HEMOGLOBIN 12.8 G/DL (11.5-16.0); LYMPHOCYTES # (AUTO) 0.9 X 10^3 (1.0-4.0); LYMPHOCYTES % (AUTO) 17 % (12-44); MEAN CORPUSCULAR HEMOGLOBIN 27 PG (25-34); MEAN CORPUSCULAR HGB CONC 33 G/DL (32-36); MEAN CORPUSCULAR VOLUME 83 FL (80-99); MONOCYTES # (AUTO) 0.4 X 10^3 (0.0-1.0); MONOCYTES % (AUTO) 8 % (0-12); NEUTROPHILS # (AUTO) 4.1 X 10^3 (1.8-7.8); NEUTROPHILS % (AUTO) 75 % (42-75); PLATELET COUNT 244 10^3/uL (130-400); RED CELL DISTRIBUTION WIDTH 14.3 % (10.0-14.5); WHITE BLOOD COUNT 5.5 10^3/uL (4.3-11.0)
[2018-01-03 10:27] LABS: ALANINE AMINOTRANSFERASE 14 U/L (0-55); ALBUMIN 4.2 GM/DL (3.2-4.5); ALKALINE PHOSPHATASE 83 U/L (40-136); BILIRUBIN,TOTAL 0.5 MG/DL (0.1-1.0); BUN/CREATININE RATIO 16; CALCIUM 9.5 MG/DL (8.5-10.1); CARBON DIOXIDE 23 MMOL/L (21-32); CHLORIDE 105 MMOL/L (98-107); CREATININE SERUM 0.76 MG/DL (0.60-1.30); GFR ESTIMATED > 60; GLUCOSE 119 MG/DL (70-105); POTASSIUM 3.6 MMOL/L (3.6-5.0); SODIUM 139 MMOL/L (135-145)
[2018-02-28 10:09] LABS: BASOPHILS % (AUTO) 0 % (0-10); EOSINOPHILS % (AUTO) 0 % (0-10); HEMATOCRIT 38 % (35-52); HEMOGLOBIN 12.7 G/DL (11.5-16.0); LYMPHOCYTES # (AUTO) 0.8 X 10^3 (1.0-4.0); LYMPHOCYTES % (AUTO) 10 % (12-44); MEAN CORPUSCULAR HEMOGLOBIN 27 PG (25-34); MEAN CORPUSCULAR HGB CONC 33 G/DL (32-36); MEAN CORPUSCULAR VOLUME 82 FL (80-99); MEAN PLATELET VOLUME 9.3 FL (7.4-10.4); MONOCYTES # (AUTO) 0.5 X 10^3 (0.0-1.0); MONOCYTES % (AUTO) 7 % (0-12); NEUTROPHILS # (AUTO) 6.6 X 10^3 (1.8-7.8); NEUTROPHILS % (AUTO) 83 % (42-75); PLATELET COUNT 223 10^3/uL (130-400); RED CELL DISTRIBUTION WIDTH 13.7 % (10.0-14.5)
[2018-02-28 10:28] LABS: ALANINE AMINOTRANSFERASE 19 U/L (0-55); ALBUMIN 4.2 GM/DL (3.2-4.5); ALKALINE PHOSPHATASE 97 U/L (40-136); BILIRUBIN,TOTAL 0.4 MG/DL (0.1-1.0); BUN/CREATININE RATIO 21; CALCIUM 9.3 MG/DL (8.5-10.1); CARBON DIOXIDE 24 MMOL/L (21-32); CHLORIDE 103 MMOL/L (98-107); CREATININE SERUM 0.81 MG/DL (0.60-1.30); GFR ESTIMATED > 60; GLUCOSE 104 MG/DL (70-105); POTASSIUM 3.7 MMOL/L (3.6-5.0); SODIUM 138 MMOL/L (135-145)
[~2018-03-22 09:43] MED LIST changes: -ALEN70TA47 PO; +ALEN70TA5 PO; +METR-145 PO; -METR-197 PO
== END 2018-04-03 | disposition home or self-care (01) ==
LOC: ONC 09:43
PROVIDERS: ATTEND Internal Medicine Hematology & Oncology
DX: C7A.098 Malignant carcinoid tumors of other sites (principal)
CPT/HCPCS: 36415; 80053; 83497; 85025; 86316; 99213

== ENCOUNTER → 2018-03-27 | Outpatient (CLI) | payer OTHER ==
[~2018-03-27] MED LIST changes: -ACHD5005 PO; -ALEN70TA5 PO; +BARIUM SUSPENSION 2.1% (VANILLA SILQ) 450 ML PO ONE; -CHOL5000 PO; -CIPR500T4 PO; -CIPR500T78 PO; -CLON1TAB PO; -CLON1TAB13 PO; -DIAZ-345 PO; -DICL75TA2 PO; -DICY10CA59 PO; -DULO30CA48 PO; -DULO60CA58 PO; -DULO60CA6 PO; -HYDR1TAB PO; +IOHEXOL 350 MG/ML 100 ML (OMNIPAQUE 350) VIAL IV ONE; -KETO10TA PO; -MECL-124 PO; -METR-145 PO; -METR500T PO; -NITR-65 PO; +NS 100 ML (IVPB) BAG IV ONE; -ONDA-42 SL; -ONDA4TAB11 PO; -ONDA4TAB8 PO; -PANT40TA2 PO; -PANT40TA3 PO; +RECEIVED CONTRAST (Hold Metformin) IV SCH; -TRAM-42 PO; -TRAM50TA2 PO
--- NOTE | 2018-03-27 12:11 | Diagnostic Imaging Report ---
PROCEDURE: CT abdomen and pelvis with and without contrast. TECHNIQUE: Precontrast acquisitions were acquired through the abdomen and pelvis. Multiple contiguous axial images were obtained through the abdomen and pelvis after the administration of intravenous contrast. INDICATION: Malignant carcinoid tumor of the cecum. FINDINGS: The previous CT abdomen/pelvis exam of 01/23/2018 noted a small 10 x 14 mm low-density nodule along the lateral margin of the inferior portion of the right lobe of the liver. There was also a surgical clip in this area. On this exam that nodular density measures only 2.4 x 6.1 mm. The surgical clip noted previously is again visualized and unchanged. The liver is otherwise homogeneous. As noted on the prior study, the gallbladder is surgically absent. The appendix and right kidney have also been removed and there has been a prior colon resection. The spleen, pancreas, adrenals, left kidney, and stomach are unremarkable for an acute abnormality. As noted previously, the left kidney is malrotated. The aorta and inferior vena cava show no sign of an acute abnormality. There is no pelvic mass or free fluid collection noted. The uterus is either small or surgically absent. The urinary bladder is grossly unremarkable. The bone windows show no sign of a fracture or of a destructive lesion. There are bilateral pars defects at L5 and there is a grade 1 spondylolisthesis of L5 with respect to S1. The lung bases are clear. IMPRESSION: 1. There is no acute abnormality of the abdomen or pelvis. 2. The small nodular density along the periphery of the inferior portion of the right lobe of the liver seen previously is barely visible on this exam. 3. The gallbladder, the appendix, the right kidney, and perhaps the uterus are surgically absent. There has also been a prior colon resection. 4. The left kidney is malrotated but appears to function well. Dictated by: Dictated on workstation # [id number]
== END ==
LOC: RAD 09:20
PROVIDERS: ATTEND Internal Medicine Hematology & Oncology
DX: C7A.021 Malignant carcinoid tumor of the cecum (principal); Q96.9 Turner's syndrome, unspecified; Z98.890 Other specified postprocedural states; Z90.49 Acquired absence of other specified parts of digestive tract; Z90.5 Acquired absence of kidney
CPT/HCPCS: 74178

== ENCOUNTER 2018-06-21 10:31 | Outpatient (RCR) | payer OTHER ==
[~2018-06-21 10:31] MED LIST changes: +ACHD5005 PO; +ALEN70TA5 PO; -BARIUM SUSPENSION 2.1% (VANILLA SILQ) 450 ML PO ONE; +CHOL5000 PO; +CIPR500T4 PO; +CIPR500T78 PO; +CLON1TAB PO; +CLON1TAB13 PO; +DIAZ-345 PO; +DICL75TA2 PO; +DICY10CA59 PO; +DULO30CA49 PO; +DULO60CA59 PO; +DULO60CA6 PO; +HYDR1TAB PO; -IOHEXOL 350 MG/ML 100 ML (OMNIPAQUE 350) VIAL IV ONE; +KETO10TA PO; +MECL-124 PO; +METR-145 PO; +METR500T PO; +NITR-65 PO; -NS 100 ML (IVPB) BAG IV ONE; +ONDA-42 SL; +ONDA4TAB11 PO; +ONDA4TAB8 PO; +PANT40TA2 PO; +PANT40TA3 PO; -RECEIVED CONTRAST (Hold Metformin) IV SCH; +TRAM-42 PO; +TRAM50TA2 PO
[2018-07-02] MEDS ORDERED: DOXY100T2 PO (10:32)
[2018-07-02] MEDS ORDERED: BESI5DRO OP (10:32)
== END 2018-09-06 | disposition home or self-care (01) ==
LOC: ONC 10:31
PROVIDERS: ATTEND Internal Medicine Hematology & Oncology
DX: C7A.021 Malignant carcinoid tumor of the cecum (principal); Q96.9 Turner's syndrome, unspecified; Z98.890 Other specified postprocedural states; Z90.49 Acquired absence of other specified parts of digestive tract; Z90.5 Acquired absence of kidney
CPT/HCPCS: 36415; 80053; 83497; 85025; 86316; 99213

== ENCOUNTER 2018-07-02 09:59 | Emergency (ER) | payer OTHER ==
[~2018-07-02] VITALS: Ht 139.7 cm; Wt 49.4 kg
[~2018-07-02 09:59] MED LIST changes: +DULO30CA48 PO; -DULO30CA49 PO; +DULO60CA58 PO; -DULO60CA59 PO
--- NOTE | 2018-07-02 10:22 | ED EENT ---
History of Present Illness General Chief Complaint: Eye Problems Stated Complaint: EYE PAIN Nursing Triage Note: states her eye began to turn pink yesterday and is worse this morning, pt denies any pain in eye at this time Source: patient Exam Limitations: no limitations History of Present Illness Date Seen by Provider: July 02, 2018 Time Seen by Provider: 10:00 Initial Comments Here with acute eye redness and irritation started yesterday and worse today. Does have some yellow-green purulent drainage from the eye. Noted lymph node swollen on the right side as well as a few sores under the nose on the upper lip on the right side that came out this morning. Denies fever. Denies vision problems or changes. Timing/Duration: abrupt, yesterday Severity: mild, moderate Location: eye (R), facial Prearrival Treatment: no prearrival treatment Associated Symptoms: No fever Allergies and Home Medications Allergies Coded Allergies: Sulfa (Sulfonamide Antibiotics) (Verified Allergy, Mild, RASH, 07/02/18) acetaminophen (Verified Adverse Reaction, Mild, N/V, 07/02/18) oxycodone HCl (Verified Adverse Reaction, Mild, N/V, 07/02/18) Home Medications Alendronate Sodium 70 Mg Tablet, 70 MG PO Sa, (Reported) Besifloxacin Hydrochloride 5 Ml Drops.susp, 5 ML OP TID One drop to the affected eye 3 times a day Prescribed by: KIMBERLY WHITEHEAD on 07/02/18 1032 Cholecalciferol (Vitamin D3) 5,000 Unit Capsule, 5,000 UNIT PO DAILY, (Reported) Clonazepam 1 Mg Tablet, 1 MG PO HS, (Reported) Doxycycline Hyclate 100 Mg Tablet, 100 MG PO BID Prescribed by: KIMBERLY WHITEHEAD on 07/02/18 1032 Duloxetine HCl 60 Mg Capsule.dr, 60 MG PO HS, (Reported) Pantoprazole Sodium 40 Mg Tablet.dr, 40 MG PO DAILY, (Reported) Tramadol HCl 50 Mg Tablet, 50 MG PO Q8H Prescribed by: NORBERT COE on 11/17/17 1219 Patient Home Medication List Home Medication List Reviewed: Yes Review of Systems Review of Systems Constitutional: see HPI; No chills, No fever Eyes: See HPI, Drainage, Inflammation; Denies Pain Ears: No Symptoms Reported Nose: no symptoms reported Mouth: no symptoms reported Throat: no symptoms reported Respiratory: no symptoms reported Cardiovascular: no symptoms reported Skin: see HPI, change in color, lesions Neurological: No Symptoms Reported Past Uzubauz-Ystmrz-Qmycdy Hx Past Med/Social Hx: Reviewed Nursing Past Med/Soc Hx Patient Social History Alcohol Use: Denies Use Recreational Drug Use: No Type Used: Cigars 2nd Hand Smoke Exposure: No Recent Foreign Travel: No Contact w/Someone Who Travel: No Recent Infectious Disease Expo: No Recent Hopitalizations: Yes Immunizations Up To Date Tetanus Booster (TDap): Unknown PED Vaccines UTD: Yes Date of Influenza Vaccine: Nov 06, 2017 Seasonal Allergies Seasonal Allergies: No Past Medical History Surgeries: Yes Abdominal, Adenoidectomy, Appendectomy, Bowel Surgery, Ear Surgery, Gallbladder, Nephrectomy, Tonsillectomy Respiratory: No Currently Using CPAP: No Currently Using BIPAP: No Cardiac: No Neurological: No Reproductive Disorders: Yes (NICHOLS'S SYNDROME) Female Reproductive Disorders: Denies Sexually Transmitted Disease: No HIV/AIDS: No Genitourinary: Yes (S/P RIGHT NEPHRECTOMY FOR NON-FUNCTIONING KIDNEY) Kidney Infection, Bladder Infection, Kidney Stones, Polycystic Kidney Disease Gastrointestinal: Yes (HERNIA REPAIR, HEPATITIS A; BOWEL RESECTION FOR CARCINOID TUMOR) Abdominal Hernia, Colitis, Hepatitis, Gall Bladder Disease, Irritable Bowel Musculoskeletal: Yes Arthritis Endocrine: Yes (NICHOLS'S SYNDROME) HEENT: Yes Chronic Ear Infection Hearing Impairment: Hard of Hearing Cancer: Yes (CARCINOID TUMOR--S/P RESECTION) Colon Did You Recieve Any Treatments: Yes What Type of Treatment Did You: Surgical Intervention Psychosocial: Yes Anxiety, Depression Integumentary: No Blood Disorders: No Adverse Reaction/Blood Tranf: No Family Medical History Reviewed Nursing Family Hx SKIN CANCER 19 FATHER Cancer, Hypertension Physical Exam Vital Signs Vital Signs - First Documented 07/02/18 10:11 Temp 98.7 Pulse 96 Resp 18 B/P (MAP) 140/85 (103) Height, Weight, BMI Height: 4'7.00" Weight: 109lbs. 1.0oz. 49.091395dv; 28.4 BMI Method:Stated General Appearance: WD/WN, no apparent distress Eyes: right eye conjunctival inflammation, right eye other (erythema around the conjunctiva with purulent drainage.); bilateral eye PERRL, bilateral eye EOMI Mouth/Throat: pharynx normal; No trismus Neck: full range of motion, supple, lymphadenopathy (R); No lymphadenopathy (L) Cardiovascular: regular rate, rhythm, no murmur Respiratory: lungs clear, normal breath sounds Neurologic/Psychiatric: alert, oriented x 3 Skin: normal color, warm/dry Progress/Results/Core Measures Results/Orders Vital Signs/I&O 07/02/18 10:11 Temp 98.7 Pulse 96 Resp 18 B/P (MAP) 140/85 (103) Blood Pressure Mean: 103 Progress Progress Note : Progress Note Seen and evaluated. I did discuss the case with Dr. Gerardo. He is recommending Besivance 3 times a day oral antibiotic. We will prescribe that and doxycycline. I did verify prescription capability at [facility] and they do have one bottle of the Besivance. Prescriptions sent. I did give Dr. Gerardo's phone number to the patient per his request. Discharged home with return precautions. Patient verbalize understanding instructions and agreement with plan. Departure Impression Primary Impression: Conjunctivitis Qualified Codes: H10.31 - Unspecified acute conjunctivitis, right eye Additional Impression: Soft tissue infection Disposition: 01 HOME, SELF-CARE Condition: Stable Departure-Patient Inst. Decision time for Depature: 10:28 Referrals: [facility] (PCP) Primary Care Physician SUMMER HUNG APRN (Family) Primary Care Physician VERO GERARDO OD Patient Instructions: Conjunctivitis (Pinkeye) (DC), Cellulitis (Skin Infection), Adult (DC) Add. Discharge Instructions: All discharge instructions reviewed with patient and/or family. Voiced understanding. Take medications as directed. Follow-up with Dr. Gerardo on Monday or Monday. If you have problems, please call his cell phone at [phone]. Return for worse pain, swelling, increasing number of sores, vision problems or other concerns as needed. Scripts Doxycycline Hyclate (Doxycycline Hyclate) 100 Mg Tablet 100 MG PO BID, #20 TAB 0 Refills Prov: KIMBERLY WHITEHEAD MD 07/02/18 Besifloxacin Hydrochloride (Besivance) 5 Ml Drops.susp 5 ML OP TID for 7 Days, #5 ML 0 Refills One drop to the affected eye 3 times a day Prov: KIMBERLY WHITEHEAD MD 07/02/18 Work/School Note: Work Release Form Date Seen in the Emergency Department: July 02, 2018 Return to Work: July 04, 2018 Restrictions: No Restrictions Copy Copies To 1: VERO GERARDO OD, TIMOTHY D MD July 02, 2018 10:22
[2018-07-02] MEDS ORDERED: DOXY100T2 PO (10:32)
[2018-07-02] MEDS ORDERED: BESI5DRO OP (10:32)
[2018-07-02 10:38] VITALS: BP 148/85
== END 2018-07-02 10:40 | disposition home or self-care (01) ==
LOC: EDUNIT# 09:59 → ER 10:00
DX: H10.9 Unspecified conjunctivitis (principal); L08.9 Local infection of the skin and subcutaneous tissue, unspecified; Q96.9 Turner's syndrome, unspecified; K58.9 Irritable bowel syndrome, unspecified; F41.9 Anxiety disorder, unspecified; F32.9 Major depressive disorder, single episode, unspecified; Z86.018 Personal history of other benign neoplasm; Z87.448 Personal history of other diseases of urinary system; Z87.442 Personal history of urinary calculi; Z80.8 Family history of malignant neoplasm of other organs or systems; Z82.49 Family history of ischemic heart disease and other diseases of the circulatory system; Z87.19 Personal history of other diseases of the digestive system; Z88.2 Allergy status to sulfonamides; Z88.6 Allergy status to analgesic agent; Z88.5 Allergy status to narcotic agent; Z90.89 Acquired absence of other organs; Z90.49 Acquired absence of other specified parts of digestive tract; Z98.890 Other specified postprocedural states; Z90.5 Acquired absence of kidney
CPT/HCPCS: 99282

== ENCOUNTER 2018-09-20 10:18 | Outpatient (RCR) | payer OTHER ==
[2018-09-14 10:53] LABS: BASOPHILS % (AUTO) 0 % (0-10); EOSINOPHILS # (AUTO) 0.1 10^3/uL (0.0-0.3); EOSINOPHILS % (AUTO) 1 % (0-10); HEMATOCRIT 40 % (35-52); HEMOGLOBIN 13.4 G/DL (11.5-16.0); LYMPHOCYTES % (AUTO) 17 % (12-44); MEAN CORPUSCULAR HEMOGLOBIN 28 PG (25-34); MEAN CORPUSCULAR HGB CONC 33 G/DL (32-36); MEAN CORPUSCULAR VOLUME 83 FL (80-99); MEAN PLATELET VOLUME 9.9 FL (7.4-10.4); MONOCYTES # (AUTO) 0.4 X 10^3 (0.0-1.0); MONOCYTES % (AUTO) 6 % (0-12); NEUTROPHILS # (AUTO) 4.4 X 10^3 (1.8-7.8); NEUTROPHILS % (AUTO) 76 % (42-75); PLATELET COUNT 208 10^3/uL (130-400); RED CELL DISTRIBUTION WIDTH 13.9 % (10.0-14.5); WHITE BLOOD COUNT 5.8 10^3/uL (4.3-11.0)
[2018-09-14 11:22] LABS: ALANINE AMINOTRANSFERASE 19 U/L (0-55); ALBUMIN 4.1 GM/DL (3.2-4.5); ALKALINE PHOSPHATASE 100 U/L (40-136); BILIRUBIN,TOTAL 0.4 MG/DL (0.1-1.0); BUN/CREATININE RATIO 18; CALCIUM 10.4 MG/DL (8.5-10.1); CARBON DIOXIDE 28 MMOL/L (21-32); CHLORIDE 104 MMOL/L (98-107); CREATININE SERUM 0.77 MG/DL (0.60-1.30); GFR ESTIMATED > 60; GLUCOSE 134 MG/DL (70-105); POTASSIUM 4.1 MMOL/L (3.6-5.0); SODIUM 141 MMOL/L (135-145); TOTAL PROTEIN 6.8 GM/DL (6.4-8.2)
[2018-09-17 13:41] LABS: URINE CREAT 57 MG/DL (30-125)
[2018-09-17 13:45] LABS: CREATININE 24 HOUR,URINE 427 MG/24H (800-1700); TOTAL VOLUME,URINE 750 ML
[~2018-09-20 10:18] MED LIST changes: +BESI5DRO OP; +DOXY100T2 PO; -DULO30CA48 PO; +DULO30CA49 PO; -DULO60CA58 PO; +DULO60CA59 PO
[2018-11-23] MEDS ORDERED: ACHD5005 PO (03:56)
[2018-11-23] MEDS ORDERED: ONDA4TAB11 PO (03:56)
[2018-11-27] MEDS ORDERED: DULO30CA49 PO (10:07)
[2018-11-27] MEDS ORDERED: LACT1CAP72 PO (10:07)
== END 2018-12-13 | disposition home or self-care (01) ==
LOC: ONC 10:18
PROVIDERS: ATTEND Internal Medicine Hematology & Oncology
DX: C7A.021 Malignant carcinoid tumor of the cecum (principal); Q96.9 Turner's syndrome, unspecified; Z98.890 Other specified postprocedural states; Z90.49 Acquired absence of other specified parts of digestive tract; Z90.5 Acquired absence of kidney
CPT/HCPCS: 36415; 80053; 82570; 83497; 83930; 85025; 86316; 99213

== ENCOUNTER 2018-11-21 09:30 | Emergency (ER) | payer OTHER ==
[~2018-11-21] VITALS: Ht 139.7 cm; Wt 55.1 kg
[2018-11-21] MEDS ORDERED: ONDANSETRON 4 MG/2 ML (SDV) Z0FRAN IVP ONE (11:00)
[2018-11-21] MEDS ORDERED: fentaNYL INJECTION 100 MCG/2 ML AMP IVP ONE (11:00)
--- NOTE | 2018-11-21 11:04 | ED Abdominal Pain ---
General Chief Complaint: Abdominal/GI Problems Stated Complaint: DIARRHEA/CHILLS Nursing Triage Note: AMB TO ROOM C/O LOW ABD PAIN WITH DIARRHEA ONSET LAST NIGHT. Sepsis Screen: No Definite Risk Source of Information: Patient Exam Limitations: No Limitations History of Present Illness Date Seen by Provider: Nov 21, 2018 Time Seen by Provider: 11:03 Initial Comments To ER with reports of low abdominal pain and diarrhea that began last night. History of bowel resection following colon cancer diagnosis. She has nausea but no vomiting. Timing/Duration: 1-2 Days Severity/Quality: Moderate Location: Suprapubic Radiation: No Radiation Activities at Onset: None Allergies and Home Medications Allergies Coded Allergies: Sulfa (Sulfonamide Antibiotics) (Verified Allergy, Mild, RASH, 07/02/18) acetaminophen (Verified Adverse Reaction, Mild, N/V, 07/02/18) oxycodone HCl (Verified Adverse Reaction, Mild, N/V, 07/02/18) Home Medications Alendronate Sodium 70 Mg Tablet, 70 MG PO Sa, (Reported) Besifloxacin Hydrochloride 5 Ml Drops.susp, 5 ML OP TID One drop to the affected eye 3 times a day Prescribed by: KIMBERLY WHITEHEAD on 07/02/18 1032 Cholecalciferol (Vitamin D3) 5,000 Unit Capsule, 5,000 UNIT PO DAILY, (Reported) Clonazepam 1 Mg Tablet, 1 MG PO HS, (Reported) Doxycycline Hyclate 100 Mg Tablet, 100 MG PO BID Prescribed by: KIMBERLY WHITEHEAD on 07/02/18 1032 Duloxetine HCl 60 Mg Capsule.dr, 60 MG PO HS, (Reported) Pantoprazole Sodium 40 Mg Tablet.dr, 40 MG PO DAILY, (Reported) Tramadol HCl 50 Mg Tablet, 50 MG PO Q8H Prescribed by: NORBERT COE on 11/17/17 1219 Patient Home Medication List Home Medication List Reviewed: Yes Review of Systems Review of Systems Constitutional: see HPI EENTM: No Symptoms Reported Respiratory: No Symptoms Reported Cardiovascular: No Symptoms Reported Gastrointestinal: See HPI, Abdominal Pain, Diarrhea Genitourinary: No Symptoms Reported Musculoskeletal: no symptoms reported Skin: no symptoms reported Psychiatric/Neurological: No Symptoms Reported Endocrine: No Symptoms Reported Hematologic/Lymphatic: No Symptoms Reported Past Uotqncy-Nbgefs-Wroaxb Hx Patient Social History Alcohol Use: Occasionally Uses Alcohol Beverage of Choice: Beer Recreational Drug Use: No Smoking Status: Never a Smoker Type Used: Cigars 2nd Hand Smoke Exposure: No Recent Foreign Travel: No Contact w/Someone Who Travel: No Recent Infectious Disease Expo: No Recent Hopitalizations: Yes Immunizations Up To Date Tetanus Booster (TDap): Unknown PED Vaccines UTD: Yes Date of Influenza Vaccine: Nov 06, 2017 Seasonal Allergies Seasonal Allergies: No Past Medical History Surgeries: Yes Abdominal, Adenoidectomy, Appendectomy, Bowel Surgery, Ear Surgery, Gallbladder, Nephrectomy, Tonsillectomy Respiratory: No Currently Using CPAP: No Currently Using BIPAP: No Cardiac: No Neurological: No Reproductive Disorders: Yes (NICHOLS'S SYNDROME) Female Reproductive Disorders: Denies Sexually Transmitted Disease: No HIV/AIDS: No Genitourinary: Yes (S/P RIGHT NEPHRECTOMY FOR NON-FUNCTIONING KIDNEY) Kidney Infection, Bladder Infection, Kidney Stones, Polycystic Kidney Disease Gastrointestinal: Yes (HERNIA REPAIR, HEPATITIS A; BOWEL RESECTION FOR CARCINOID TUMOR) Abdominal Hernia, Colitis, Hepatitis, Gall Bladder Disease, Irritable Bowel Musculoskeletal: Yes Arthritis Endocrine: Yes (NICHOLS'S SYNDROME) HEENT: Yes Chronic Ear Infection Hearing Impairment: Hard of Hearing Cancer: Yes (CARCINOID TUMOR--S/P RESECTION) Colon Did You Recieve Any Treatments: Yes What Type of Treatment Did You: Surgical Intervention Psychosocial: Yes Anxiety, Depression Integumentary: No Blood Disorders: No Adverse Reaction/Blood Tranf: No Family Medical History SKIN CANCER 19 FATHER Cancer, Hypertension Physical Exam Vital Signs Vital Signs - First Documented 11/21/18 09:45 Temp 38.0 Pulse 83 Resp 18 B/P (MAP) 128/67 (87) Pulse Ox 99 O2 Delivery Room Air Capillary Refill : Less Than 3 Seconds Height/Weight/BMI Height: 4'7.00" Weight: 109lbs. 1.0oz. 49.867718cm; 28.00 BMI Method:Stated General Appearance: WD/WN, no apparent distress HEENT: PERRL/EOMI, normal ENT inspection Respiratory: no respiratory distress, no accessory muscle use Cardiovascular: regular rate, rhythm, no murmur Gastrointestinal: normal bowel sounds, soft, tenderness Extremities: normal range of motion, non-tender Neurologic/Psychiatric: alert, normal mood/affect, oriented x 3 Skin: normal color, warm/dry Progress/Results/Core Measures Results/Orders Lab Results Laboratory Tests Test 11/21/18 09:56 11/21/18 10:45 Range/Units Urine Color YELLOW Urine Clarity CLEAR Urine pH 5 5-9 Urine Specific [place] 1.015 L 1.016-1.022 Urine Protein 1+ H NEGATIVE Urine Glucose (UA) NEGATIVE NEGATIVE Urine Ketones NEGATIVE NEGATIVE Urine Nitrite NEGATIVE NEGATIVE Urine Bilirubin NEGATIVE NEGATIVE Urine Urobilinogen NORMAL NORMAL MG/DL Urine Leukocyte Esterase NEGATIVE NEGATIVE Urine RBC (Auto) NEGATIVE NEGATIVE Urine RBC NONE /HPF Urine WBC 0-2 /HPF Urine Squamous Epithelial Cells 10-25 H /HPF Urine Crystals NONE /LPF Urine Bacteria TRACE /HPF Urine Casts NONE /LPF Urine Mucus NEGATIVE /LPF Urine Culture Indicated NO White Blood Count 9.1 4.3-11.0 10^3/uL Red Blood Count 4.79 4.35-5.85 10^6/uL Hemoglobin 13.5 11.5-16.0 G/DL Hematocrit 41 35-52 % Mean Corpuscular Volume 85 80-99 FL Mean Corpuscular Hemoglobin 28 25-34 PG Mean Corpuscular Hemoglobin Concent 33 32-36 G/DL Red Cell Distribution Width 13.8 10.0-14.5 % Platelet Count 177 130-400 10^3/uL Mean Platelet Volume 9.8 7.4-10.4 FL Neutrophils (%) (Auto) 91 H 42-75 % Lymphocytes (%) (Auto) 4 L 12-44 % Monocytes (%) (Auto) 5 0-12 % Eosinophils (%) (Auto) 0 0-10 % Basophils (%) (Auto) 0 0-10 % Neutrophils # (Auto) 8.3 H 1.8-7.8 X 10^3 Lymphocytes # (Auto) 0.4 L 1.0-4.0 X 10^3 Monocytes # (Auto) 0.4 0.0-1.0 X 10^3 Eosinophils # (Auto) 0.0 0.0-0.3 10^3/uL Basophils # (Auto) 0.0 0.0-0.1 10^3/uL Neutrophils % (Manual) 91 % Lymphocytes % (Manual) 5 % Monocytes % (Manual) 4 % Eosinophils % (Manual) 0 % Basophils % (Manual) 0 % Band Neutrophils 0 % Blood Morphology Comment NORMAL Sodium Level 141 135-145 MMOL/L Potassium Level 3.9 3.6-5.0 MMOL/L Chloride Level 106 98-107 MMOL/L Carbon Dioxide Level 26 21-32 MMOL/L Anion Gap 9 5-14 MMOL/L Blood Urea Nitrogen 13 7-18 MG/DL Creatinine 1.02 0.60-1.30 MG/DL Estimat Glomerular Filtration Rate 58 BUN/Creatinine Ratio 13 Glucose Level 155 H 70-105 MG/DL Calcium Level 9.8 8.5-10.1 MG/DL Corrected Calcium 10.0 8.5-10.1 MG/DL Total Bilirubin 0.6 0.1-1.0 MG/DL Aspartate Amino Transf (AST/SGOT) 25 5-34 U/L Alanine Aminotransferase (ALT/SGPT) 28 0-55 U/L Alkaline Phosphatase 61 40-136 U/L Total Protein 7.1 6.4-8.2 GM/DL Albumin 3.8 3.2-4.5 GM/DL Lipase 15 8-78 U/L My Orders Orders - STACY CERRATO WOOD ROOM SUPERVISOR Cbc With Automated Diff (11/21/18 11:00) Comprehensive Metabolic Panel (11/21/18 11:00) Lipase (11/21/18 11:00) Ed Iv/Invasive Line Start (11/21/18 11:00) Ct Abdomen/Pelvis W (11/21/18 11:00) Ondansetron Injection (Zofran Injectio (11/21/18 11:00) Fentanyl Injection (Sublimaze Injection (11/21/18 11:00) Iohexol Injection (Omnipaque 350 Mg/Ml 1 (11/21/18 11:15) Received Contrast (Hold Metformin- Contr (11/21/18 11:15) Sodium Chloride Flush (Catheter Flush Sy (11/21/18 11:15) Ns (Ivpb) (Sodium Chloride 0.9% Ivpb Bag (11/21/18 11:15) Ua Culture If Indicated (11/21/18 11:05) Manual Differential (11/21/18 10:45) Medications Given in ED Current Medications Medications Dose Ordered Sig/Nestor Route Start Time Stop Time Status Last Admin Dose Admin Fentanyl Citrate 50 mcg ONCE ONCE IVP 11/21/18 11:00 11/21/18 11:01 DC 11/21/18 11:24 50 MCG Iohexol 100 ml ONCE ONCE IV 11/21/18 11:15 11/21/18 11:16 DC 10/16/19 12:11 68 ML Ondansetron HCl 4 mg ONCE ONCE IVP 11/21/18 11:00 11/21/18 11:01 DC 11/21/18 11:22 4 MG Sodium Chloride 10 ml NEEDED PRN IV 11/21/18 11:15 11/21/18 12:12 10 ML Sodium Chloride 100 ml ONCE ONCE IV 11/21/18 11:15 11/21/18 11:16 DC 11/21/18 12:11 80 ML Vital Signs/I&O 11/21/18 09:45 Temp 38.0 Pulse 83 Resp 18 B/P (MAP) 128/67 (87) Pulse Ox 99 O2 Delivery Room Air Blood Pressure Mean: 87 Departure Impression Primary Impression: Abdominal pain Qualified Codes: R10.84 - Generalized abdominal pain Additional Impression: Diarrhea Qualified Codes: R19.7 - Diarrhea, unspecified Disposition: 01 HOME, SELF-CARE Condition: Stable Departure-Patient Inst. Decision time for Depature: 12:58 Referrals: [facility] (PCP) Primary Care Physician SUMMER HUNG APRN (Family) Primary Care Physician Patient Instructions: Acute Pain, Adult Add. Discharge Instructions: 1. Return to ER for any concerns 2. Follow up with your doctor next week All discharge instructions reviewed with patient and/or family. Voiced understanding. STACY CERRATO APRN Nov 21, 2018 11:04
[2018-11-21 11:15] LABS: BASOPHILS % (AUTO) 0 % (0-10); EOSINOPHILS % (AUTO) 0 % (0-10); HEMATOCRIT 41 % (35-52); HEMOGLOBIN 13.5 G/DL (11.5-16.0); LYMPHOCYTES # (AUTO) 0.4 X 10^3 (1.0-4.0); LYMPHOCYTES % (AUTO) 4 % (12-44); MEAN CORPUSCULAR HEMOGLOBIN 28 PG (25-34); MEAN CORPUSCULAR HGB CONC 33 G/DL (32-36); MEAN CORPUSCULAR VOLUME 85 FL (80-99); MEAN PLATELET VOLUME 9.8 FL (7.4-10.4); MONOCYTES # (AUTO) 0.4 X 10^3 (0.0-1.0); MONOCYTES % (AUTO) 5 % (0-12); NEUTROPHILS # (AUTO) 8.3 X 10^3 (1.8-7.8); NEUTROPHILS % (AUTO) 91 % (42-75); PLATELET COUNT 177 10^3/uL (130-400); RED CELL DISTRIBUTION WIDTH 13.8 % (10.0-14.5); WHITE BLOOD COUNT 9.1 10^3/uL (4.3-11.0)
[2018-11-21] MEDS ORDERED: CATHETER FLUSH 10 ML SYR IV PRN (11:15)
[2018-11-21] MEDS ORDERED: IOHEXOL 350 MG/ML 100 ML (OMNIPAQUE 350) VIAL IV ONE (11:15)
[2018-11-21] MEDS ORDERED: HOLD METFORMIN - RECEIVED CONTRAST 20 ML VIAL IV SCH (11:15)
[2018-11-21] MEDS ORDERED: NS 100 ML (IVPB) BAG IV ONE (11:15)
[2018-11-21 11:25] LABS: BILIRUBIN,URINE NEGATIVE (NEGATIVE); CLARITY,URINE CLEAR; COLOR,URINE YELLOW; GLUCOSE, URINE (UA) NEGATIVE (NEGATIVE); KETONES,URINE NEGATIVE (NEGATIVE); LEUKOCYTE ESTERASE ,URINE NEGATIVE (NEGATIVE); NITRITE,URINE NEGATIVE (NEGATIVE); PH,URINE 5 (5-9); PROTEIN,URINE 1+ (NEGATIVE); UROBILINOGEN,URINE NORMAL (NORMAL)
[2018-11-21 11:41] LABS: BACTERIA,URINE TRACE /HPF; WBC,URINE 0-2 /HPF
[2018-11-21 11:41] LABS: ALBUMIN 3.8 GM/DL (3.2-4.5); BILIRUBIN,TOTAL 0.6 MG/DL (0.1-1.0); CALCIUM 9.8 MG/DL (8.5-10.1); CREATININE SERUM 1.02 MG/DL (0.60-1.30); POTASSIUM 3.9 MMOL/L (3.6-5.0); TOTAL PROTEIN 7.1 GM/DL (6.4-8.2)
[2018-11-21 11:47] LABS: BAND NEUTROPHILS 0 %; BASOPHILS % (MANUAL) 0 %; EOSINOPHILS % (MANUAL) 0 %; LYMPHOCYTES % (MANUAL) 5 %; MONOCYTES % (MANUAL) 4 %; NEUTROPHILS % (MANUAL) 91 %
[2018-11-21 11:48] LABS: RBC MORPH NORMAL
--- NOTE | 2018-11-21 12:56 | Diagnostic Imaging Report ---
PROCEDURE: CT abdomen and pelvis with contrast. TECHNIQUE: Multiple contiguous axial images were obtained through the abdomen and pelvis after administration of intravenous contrast. Auto Exposure Controls were utilized during the CT exam to meet ALARA standards for radiation dose reduction. INDICATION: Diarrhea and abdominal pain. COMPARISON: Comparison is made to study of 03/27/2018. FINDINGS: There is low density throughout the liver. Gallbladder is surgically absent. There is persistent biliary ductal dilatation without evidence of biliary tree stone. No pancreatic or adrenal gland lesion is identified. The spleen is stable and unremarkable. Solitary left kidney is again noted with apparent 0.3 cm nonobstructing calculus in the mid portion. There is mild left hydronephrosis; however, this has not significantly changed. There has been development of herniation of transverse colon near the midline. No significant mural thickening or proximal dilatation is identified. There is no evidence of free fluid within the abdomen or pelvis. Partially opacified urinary bladder is unremarkable. IMPRESSION: Findings are similar to previous study apart from interval development of transverse colonic hernia through the anterior abdominal wall defect in the midline. This does not result in significant high-grade obstruction, although clinical correlation is recommended. Dictated by: Dictated on workstation # [id number]
[2018-11-21 13:15] VITALS: BP 127/81
== END 2018-11-21 12:00 | disposition home or self-care (01) ==
LOC: EDUNIT# 09:30 → ER 09:31
DX: R10.84 Generalized abdominal pain (principal); K58.0 Irritable bowel syndrome with diarrhea; F41.9 Anxiety disorder, unspecified; F32.9 Major depressive disorder, single episode, unspecified; Z86.012 Personal history of benign carcinoid tumor; Z88.2 Allergy status to sulfonamides; Z88.5 Allergy status to narcotic agent; Z90.49 Acquired absence of other specified parts of digestive tract; Z90.89 Acquired absence of other organs; Z87.442 Personal history of urinary calculi; Z98.890 Other specified postprocedural states; Z82.49 Family history of ischemic heart disease and other diseases of the circulatory system
CPT/HCPCS: 36415; 74177; 80053; 81000; 83690; 85007; 85027

== ENCOUNTER 2018-11-23 00:04 | Emergency (ER) | payer OTHER ==
[~2018-11-23] VITALS: Ht 139 cm; Wt 55.1 kg
[~2018-11-23 00:04] MED LIST changes: -TRAM50TA2 PO; +TRM50T PO
[2018-11-23] MEDS ORDERED: FAMOTIDINE 20MG/2ML IV (PEPCID) IVP ONE (01:00)
[2018-11-23] MEDS ORDERED: ONDANSETRON 4 MG/2 ML (SDV) Z0FRAN IVP ONE ×2 (01:00→02:00)
[2018-11-23 01:08] LABS: BILIRUBIN,URINE NEGATIVE (NEGATIVE); CLARITY,URINE SLIGHTLY CLOUDY; COLOR,URINE YELLOW; GLUCOSE, URINE (UA) NEGATIVE (NEGATIVE); KETONES,URINE 1+ (NEGATIVE); LEUKOCYTE ESTERASE ,URINE 1+ (NEGATIVE); NITRITE,URINE NEGATIVE (NEGATIVE); PH,URINE 5 (5-9); PROTEIN,URINE 2+ (NEGATIVE)
--- NOTE | 2018-11-23 01:12 | ED Abdominal Pain ---
General Chief Complaint: Abdominal/GI Problems Stated Complaint: DIARRHEA,CRAMPING,NAUSEA,POSS FEVER Source of Information: Patient Exam Limitations: No Limitations History of Present Illness Date Seen by Provider: Nov 23, 2018 Time Seen by Provider: 01:00 Initial Comments Patient presents to ER by private conveyance with chief complaint of cramping abdominal pain diarrhea without blood in it and some nausea since Monday, 2-1/2 days ago. She came to the ER Monday and was seen by Ayad Alvarado had a CT scan which showed a hiatal hernia but otherwise okay. She went to Dr. Coe yester day, and he told her it was probably viral and not to take Imodium. She feels dehydrated pain persists. She has not taken anything for the pain. She has multiple surgeries on her abdomen. She has a history of diverticulosis and diverticulitis. Allergies and Home Medications Allergies Coded Allergies: Sulfa (Sulfonamide Antibiotics) (Verified Allergy, Mild, RASH, 07/02/18) acetaminophen (Verified Adverse Reaction, Mild, N/V, 07/02/18) oxycodone HCl (Verified Adverse Reaction, Mild, N/V, 07/02/18) Home Medications Alendronate Sodium 70 Mg Tablet, 70 MG PO Sa, (Reported) Besifloxacin Hydrochloride 5 Ml Drops.susp, 5 ML OP TID One drop to the affected eye 3 times a day Prescribed by: KIMBERLY WHITEHEAD on 07/02/18 1032 Cholecalciferol (Vitamin D3) 5,000 Unit Capsule, 5,000 UNIT PO DAILY, (Reported) Clonazepam 1 Mg Tablet, 1 MG PO HS, (Reported) Doxycycline Hyclate 100 Mg Tablet, 100 MG PO BID Prescribed by: KIMBERLY WHITEHEAD on 07/02/18 1032 Duloxetine HCl 60 Mg Capsule.dr, 60 MG PO HS, (Reported) Pantoprazole Sodium 40 Mg Tablet.dr, 40 MG PO DAILY, (Reported) Tramadol HCl 50 Mg Tablet, 50 MG PO Q8H Prescribed by: NOBRERT COE on 11/17/17 1219 Patient Home Medication List Home Medication List Reviewed: Yes Review of Systems Review of Systems Constitutional: No chills, No diaphoresis EENTM: No Blurred Vision, No Double Vision Respiratory: Denies Cough, Denies Orthopnea Cardiovascular: Denies Chest Pain, Denies Edema Gastrointestinal: Denies Constipated; Diarrhea, Nausea, Poor Appetite, Poor Fluid Intake, Vomiting Genitourinary: Denies Drainage, Denies Frequency Past Apatmje-Kzwopp-Yiseto Hx Patient Social History Alcohol Use: Occasionally Uses Alcohol Beverage of Choice: Beer Recreational Drug Use: No Smoking Status: Current Someday Smoker Type Used: Cigars 2nd Hand Smoke Exposure: No Recent Foreign Travel: No Contact w/Someone Who Travel: No Recent Hopitalizations: Yes Immunizations Up To Date Tetanus Booster (TDap): Unknown PED Vaccines UTD: Yes Date of Influenza Vaccine: Nov 06, 2017 Seasonal Allergies Seasonal Allergies: No Past Medical History Surgeries: Yes Abdominal, Adenoidectomy, Appendectomy, Bowel Surgery, Ear Surgery, Gallbladder, Nephrectomy, Tonsillectomy Respiratory: No Currently Using CPAP: No Currently Using BIPAP: No Cardiac: No Neurological: No Reproductive Disorders: Yes (NICHOLS'S SYNDROME) Female Reproductive Disorders: Denies Sexually Transmitted Disease: No HIV/AIDS: No Genitourinary: Yes (S/P RIGHT NEPHRECTOMY FOR NON-FUNCTIONING KIDNEY) Kidney Infection, Bladder Infection, Kidney Stones, Polycystic Kidney Disease Gastrointestinal: Yes (HERNIA REPAIR, HEPATITIS A; BOWEL RESECTION FOR CARCINOID TUMOR) Abdominal Hernia, Colitis, Hepatitis, Gall Bladder Disease, Irritable Bowel Musculoskeletal: Yes Arthritis Endocrine: Yes (NICHOLS'S SYNDROME) HEENT: Yes Chronic Ear Infection Hearing Impairment: Hard of Hearing Cancer: Yes (CARCINOID TUMOR--S/P RESECTION) Colon Did You Recieve Any Treatments: Yes What Type of Treatment Did You: Surgical Intervention Psychosocial: Yes Anxiety, Depression Integumentary: No Blood Disorders: No Adverse Reaction/Blood Tranf: No Family Medical History SKIN CANCER 19 FATHER Cancer, Hypertension Physical Exam Vital Signs Vital Signs - First Documented 11/23/18 11/23/18 00:23 01:33 Temp 37.8 Pulse 91 Resp 18 B/P (MAP) 146/94 (111) Pulse Ox 99 O2 Delivery Nasal Cannula O2 Flow Rate 2.00 Capillary Refill : Height/Weight/BMI Height: 4'7.00" Weight: 109lbs. 1.0oz. [id number]; 28.00 BMI Method:Stated General Appearance: WD/WN, mild distress HEENT: PERRL/EOMI; No pharynx normal (oropharynx is dry) Respiratory: lungs clear, normal breath sounds, no respiratory distress, no accessory muscle use Cardiovascular: normal peripheral pulses, regular rate, rhythm Peripheral Pulses: 2+ Radial Pulses (R), 2+ Radial Pulses (L) Gastrointestinal: normal bowel sounds, tenderness (left lower quadrant), other (no mesenteric signs) Progress/Results/Core Measures Results/Orders Lab Results Laboratory Tests Test 11/23/18 00:45 11/23/18 00:52 Range/Units Urine Color YELLOW Urine Clarity SLIGHTLY CLOUDY Urine pH 5 5-9 Urine Specific [place] 1.020 1.016-1.022 Urine Protein 2+ H NEGATIVE Urine Glucose (UA) NEGATIVE NEGATIVE Urine Ketones 1+ H NEGATIVE Urine Nitrite NEGATIVE NEGATIVE Urine Bilirubin NEGATIVE NEGATIVE Urine Urobilinogen NORMAL NORMAL MG/DL Urine Leukocyte Esterase 1+ H NEGATIVE Urine RBC (Auto) 5+ H NEGATIVE Urine RBC >100 H /HPF Urine WBC RARE /HPF Urine Squamous Epithelial Cells RARE /HPF Urine Crystals PRESENT H /LPF Urine Calcium Oxalate Crystals MODERATE H /LPF Urine Bacteria NEGATIVE /HPF Urine Casts NONE /LPF Urine Mucus NEGATIVE /LPF Urine Culture Indicated NO White Blood Count 7.6 4.3-11.0 10^3/uL Red Blood Count 4.59 4.35-5.85 10^6/uL Hemoglobin 13.2 11.5-16.0 G/DL Hematocrit 38 35-52 % Mean Corpuscular Volume 83 80-99 FL Mean Corpuscular Hemoglobin 29 25-34 PG Mean Corpuscular Hemoglobin Concent 35 32-36 G/DL Red Cell Distribution Width 13.4 10.0-14.5 % Platelet Count 186 130-400 10^3/uL Mean Platelet Volume 10.0 7.4-10.4 FL Neutrophils (%) (Auto) 80 H 42-75 % Lymphocytes (%) (Auto) 10 L 12-44 % Monocytes (%) (Auto) 10 0-12 % Eosinophils (%) (Auto) 0 0-10 % Basophils (%) (Auto) 0 0-10 % Neutrophils # (Auto) 6.1 1.8-7.8 X 10^3 Lymphocytes # (Auto) 0.8 L 1.0-4.0 X 10^3 Monocytes # (Auto) 0.7 0.0-1.0 X 10^3 Eosinophils # (Auto) 0.0 0.0-0.3 10^3/uL Basophils # (Auto) 0.0 0.0-0.1 10^3/uL Sodium Level 138 135-145 MMOL/L Potassium Level 3.2 L 3.6-5.0 MMOL/L Chloride Level 103 98-107 MMOL/L Carbon Dioxide Level 22 21-32 MMOL/L Anion Gap 13 5-14 MMOL/L Blood Urea Nitrogen 15 7-18 MG/DL Creatinine 0.78 0.60-1.30 MG/DL Estimat Glomerular Filtration Rate > 60 BUN/Creatinine Ratio 19 Glucose Level 116 H 70-105 MG/DL Calcium Level 9.6 8.5-10.1 MG/DL Corrected Calcium 9.5 8.5-10.1 MG/DL Total Bilirubin 0.5 0.1-1.0 MG/DL Aspartate Amino Transf (AST/SGOT) 26 5-34 U/L Alanine Aminotransferase (ALT/SGPT) 27 0-55 U/L Alkaline Phosphatase 90 40-136 U/L C-Reactive Protein High Sensitivity 1.40 H 0.00-0.50 MG/DL Total Protein 6.9 6.4-8.2 GM/DL Albumin 4.1 3.2-4.5 GM/DL Lipase 15 8-78 U/L My Orders Orders - CARA CANO Ondansetron Injection (Zofran Injectio (11/23/18 01:00) Cbc With Automated Diff (11/23/18 00:57) Comprehensive Metabolic Panel (11/23/18 00:57) Hs C Reactive Protein (11/23/18 00:57) Lipase (11/23/18 00:57) Famotidine Injection (Pepcid Injection) (11/23/18 01:00) Ua Culture If Indicated (11/23/18 00:57) Fentanyl Injection (Sublimaze Injection (11/23/18 01:15) Ondansetron Injection (Zofran Injectio (11/23/18 02:00) Lactated Ringers (Lr 1000 Ml Iv Solution (11/23/18 02:15) Ct Abd/Pelvis Wo(Kidney Stone) (11/23/18 02:16) Medications Given in ED Current Medications Medications Dose Ordered Sig/Nestor Route Start Time Stop Time Status Last Admin Dose Admin Famotidine 20 mg ONCE ONCE IVP 11/23/18 01:00 11/23/18 01:01 DC 11/23/18 01:20 20 MG Fentanyl Citrate 50 mcg ONCE ONCE IVP 11/23/18 01:15 11/23/18 01:16 DC 11/23/18 01:21 50 MCG Ondansetron HCl 4 mg ONCE ONCE IVP 11/23/18 01:00 11/23/18 01:01 DC 11/23/18 01:20 4 MG Ondansetron HCl 8 mg ONCE ONCE IVP 11/23/18 02:00 11/23/18 02:01 DC 11/23/18 02:11 8 MG Vital Signs/I&O 11/23/18 11/23/18 00:23 01:33 Temp 37.8 Pulse 91 Resp 18 B/P (MAP) 146/94 (111) Pulse Ox 99 O2 Delivery Nasal Cannula O2 Flow Rate 2.00 Progress Progress Note : Time: :19 Progress Note 2 days ago she had a CT of the abdomen pelvis demonstrating interval transverse colon entering the ventral abdominal hernia. We did not demonstrate any obstruction. She now has quite a bit of blood in her urine prompting a CT without contrast to look for ureteral calculi. Her pain is much improved after the fentanyl. However she still having some retching so we'll give her another 8 mg of Zofran IV antibiotic fluids. Her potassium is slightly low but her white count and CRP are unremarkable. Lipase negative. Diverticulitis is also in the differential. Diagnostic Imaging Diagonstic Imaging: CT (without IV contrast) Plain Films/CT/US/NM/MRI: abdomen, pelvis Comments There is an umbilical region ventral hernia containing a portion of the transverse colon. There is no convincing evidence of obstruction. No diverticular disease. No obstructing calculi Reviewed: Reviewed by Me Departure Impression Primary Impression: Gastroenteritis and colitis, viral Disposition: HOME, SELF-CARE Condition: Stable Departure-Patient Inst. Decision time for Depature: 03:54 Referrals: [facility] (PCP) Primary Care Physician SUMMER HUNG APRN (Family) Primary Care Physician Patient Instructions: Viral Gastroenteritis, Adult (DC) Add. Discharge Instructions: Your symptoms may persist for 5-7 days. Drink plenty of fluids. Stick to a liquid diet until your diarrhea improves and then you can advance to bland foods such as bananas, rice, applesauce and toast. Zofran 1-2 tablets every 6 hours as needed for nausea. Hydrocodone one tablet every 6 hours as needed for severe pain. All discharge instructions reviewed with patient and/or family. Voiced understanding. Scripts Ondansetron (Ondansetron Odt) 4 Mg Tab.rapdis 4 MG PO Q6H PRN for NAUSEA/VOMITING, #12 TAB 0 Refills Prov: CARA CANO 11/23/18 Hydrocodone Bit/Acetaminophen (Hydrocodone/Acetaminophen 5/325mg Tablet) 1 Tab Tab 1 EACH PO Q4-6HR PRN for PAIN-MODERATE MDD 10 for 3 Days, #8 TAB 0 Refills Prov: CARA CANO 11/23/18 Work/School Note: Work Release Form Date Seen in the Emergency Department: Nov 23, 2018 Return to Work: Nov 26, 2018 Restrictions: No Restrictions CARA CANO Nov 23, 2018 01:12
[2018-11-23 01:14] LABS: BACTERIA,URINE NEGATIVE /HPF; CALCIUM OXALATE CRYSTALS,UR MODERATE /LPF; RBC,URINE >100 /HPF; SQUAMOUS EPITHELIAL CELL,UR RARE /HPF; WBC,URINE RARE /HPF
[2018-11-23] MEDS ORDERED: fentaNYL INJECTION 100 MCG/2 ML AMP IVP ONE (01:15)
[2018-11-23 01:27] LABS: BASOPHILS % (AUTO) 0 % (0-10); EOSINOPHILS % (AUTO) 0 % (0-10); HEMATOCRIT 38 % (35-52); HEMOGLOBIN 13.2 G/DL (11.5-16.0); LYMPHOCYTES # (AUTO) 0.8 X 10^3 (1.0-4.0); LYMPHOCYTES % (AUTO) 10 % (12-44); MEAN CORPUSCULAR HEMOGLOBIN 29 PG (25-34); MEAN CORPUSCULAR HGB CONC 35 G/DL (32-36); MEAN CORPUSCULAR VOLUME 83 FL (80-99); MONOCYTES # (AUTO) 0.7 X 10^3 (0.0-1.0); MONOCYTES % (AUTO) 10 % (0-12); NEUTROPHILS # (AUTO) 6.1 X 10^3 (1.8-7.8); NEUTROPHILS % (AUTO) 80 % (42-75); PLATELET COUNT 186 10^3/uL (130-400); RED CELL DISTRIBUTION WIDTH 13.4 % (10.0-14.5); WHITE BLOOD COUNT 7.6 10^3/uL (4.3-11.0)
--- NOTE | 2018-11-23 01:34 | NUR ---
PT'S SPO2 DECREASING TO UPPER 80'S O2 APPLIED AT 2L/M
[2018-11-23 01:52] LABS: ALANINE AMINOTRANSFERASE 27 U/L (0-55); ALBUMIN 4.1 GM/DL (3.2-4.5); ALKALINE PHOSPHATASE 90 U/L (40-136); BILIRUBIN,TOTAL 0.5 MG/DL (0.1-1.0); BUN/CREATININE RATIO 19; CALCIUM 9.6 MG/DL (8.5-10.1); CARBON DIOXIDE 22 MMOL/L (21-32); CHLORIDE 103 MMOL/L (98-107); CREATININE SERUM 0.78 MG/DL (0.60-1.30); GFR ESTIMATED > 60; GLUCOSE 116 MG/DL (70-105); LIPASE 15 U/L (8-78); POTASSIUM 3.2 MMOL/L (3.6-5.0); SODIUM 138 MMOL/L (135-145); TOTAL PROTEIN 6.9 GM/DL (6.4-8.2)
[2018-11-23] MEDS ORDERED: LACTATED RINGERS 1,000 ML IV SCH (02:15)
[2018-11-23] MEDS ORDERED: ACHD5005 PO (03:56)
[2018-11-23] MEDS ORDERED: ONDA4TAB11 PO (03:56)
[2018-11-23 04:10] VITALS: BP 132/82
--- NOTE | 2018-11-23 06:13 | Diagnostic Imaging Report ---
PROCEDURE: CT urinary tract, rule out kidney stone. TECHNIQUE: Multiple contiguous axial images were obtained through the abdomen and pelvis without the use of intravenous contrast. Auto Exposure Controls were utilized during the CT exam to meet ALARA standards for radiation dose reduction. INDICATION: Abdominal pain with nausea, emesis and diarrhea. FINDINGS: Unenhanced images of the liver, pancreas and spleen are unremarkable. Gallbladder is surgically absent. No evidence of adrenal gland lesion. Surgical clips in the right abdomen are present with absence of right kidney indicating previous nephrectomy. 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 There is persistent ventral abdominal wall defect just above the umbilicus containing transverse colon without significant colonic dilatation to indicate obstruction. There is no free fluid in the abdomen or pelvis. Unopacified bladder is unremarkable. 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 IMPRESSION: Persistent umbilical hernia containing transverse colon without evidence of obstruction. Otherwise no acute abnormality or adverse change is identified. Dictated by: Dictated on workstation # [id number]
== END 2018-11-23 04:11 | disposition home or self-care (01) ==
LOC: EDUNIT# 00:04 → ER 00:06
DX: A08.4 Viral intestinal infection, unspecified (principal); K58.9 Irritable bowel syndrome, unspecified; F41.9 Anxiety disorder, unspecified; F32.9 Major depressive disorder, single episode, unspecified; F17.290 Nicotine dependence, other tobacco product, uncomplicated; Z88.2 Allergy status to sulfonamides; Z88.5 Allergy status to narcotic agent; Z90.49 Acquired absence of other specified parts of digestive tract; Z90.89 Acquired absence of other organs; Z98.890 Other specified postprocedural states; Z86.018 Personal history of other benign neoplasm; Z82.49 Family history of ischemic heart disease and other diseases of the circulatory system; Z80.8 Family history of malignant neoplasm of other organs or systems
CPT/HCPCS: 36415; 74176; 80053; 81000; 83690; 85025; 86141; 96361; 96374; 96375; 96376

== ENCOUNTER 2018-11-27 10:00 | Outpatient (CLI) | payer OTHER ==
[~2018-11-27] VITALS: Ht 139.7 cm; Wt 55.5 kg
[~2018-11-27 10:00] MED LIST changes: -LACT1CAP72 PO; -TRAM50TA2 PO; +TRM50T PO
[2018-11-27] MEDS ORDERED: LACT1CAP72 PO (10:07)
[2018-11-27] MEDS ORDERED: DULO30CA49 PO (10:07)
== END 2018-11-27 10:11 | disposition home or self-care (01) ==
LOC: PREOP 10:00
PROVIDERS: ATTEND Surgery
DX: Z01.818 Encounter for other preprocedural examination (principal)

== ENCOUNTER → 2018-11-27 | Outpatient (CLI) | payer OTHER ==
[~2018-11-27] MED LIST changes: +LACT1CAP72 PO; +TRAM50TA2 PO; -TRM50T PO
--- NOTE | 2018-11-27 16:04 | Diagnostic Imaging Report ---
INDICATION: Postmenopausal screening. COMPARISON: 02/26/2015. FINDINGS: AP lumbar spine: [BMD (g/cm2): 1.062] [T-Score: -1.1] [Z-Score: -0.6] [BMD Previous: 1.020] [BMD % Change: 4.1] LT Hip Neck: [BMD (g/cm2): 0.808] [T-Score: -1.7] [Z-Score: -0.8] LT Hip Total: [BMD (g/cm2):1.008] [T-Score:0.0] [Z-Score: 0.6] [BMD Previous: .965] [BMD % Change: 4.5] RT Hip Neck: [BMD (g/cm2):0.779] [T-Score:-1.9] [Z-Score:-1.0] RT Hip Total: [BMD (g/cm2):0.994] [T-score:-0.1] [Z-Score:0.5] [BMD Previous:0.961] [BMD % Change:3.4] *Indicates significant change from prior examination based on 95% confidence level. World Health Organization criteria for BMD interpretation classify patients as Normal (T-score at or above -1.0), Osteopenic (T-score between -1.0 and -2.5) or Osteoporotic (T-score at or below -2.5). LIMITATIONS AND MODIFICATION: None. FRACTURE RISK (FRAX SCORE): The ten year probability of (%): Major Osteoporotic Fracture: [N/A] Hip Fracture: [N/A] IMPRESSION: 1. Osteopenia (Low bone mass). 2. No significant change in bone mineral density since prior examination. 3. See below National Osteoporosis Foundation guidelines on when to potentially initiate pharmacologic therapy. Based on the National Osteoporosis Foundation Guidelines, pharmacologic treatment should be initiated in any of the following, unless clinical conditions suggest otherwise: * Any patient with prior fragility fracture of the hip or vertebrae. A spine fracture indicates 5X risk for subsequent spine fracture and 2X risk for subsequent hip fracture. * Osteoporosis (T-score <-2.5). * Postmenopausal women and men age 50 and older with low bone mass/osteopenia (T-score between -1.0 and -2.5) by DXA and 10-year major osteoporotic fracture greater than 20% or a 10-year probability of hip fracture greater than 3%. These fracture risks are supplied above in the FRAX score, if applicable. * Clinician judgement and/or patient preferences may indicate treatment for people with 10-year fracture probabilities above or below these levels. Dictated by: Dictated on workstation # [id number]
--- NOTE | 2018-11-27 19:12 | Diagnostic Imaging Report ---
INDICATION: Routine screening. Comparison is made with prior mammogram from 10/26/2015 and 10/22/2014. 2-D and 3-D bilateral screening mammography was performed with CAD. The current study was also evaluated with a Computer Aided Detection (CAD) system. 3-D tomosynthesis was also performed and reviewed. Scattered fibroglandular densities are identified bilaterally. The parenchymal pattern appears to be stable. No mass or malignant appearing microcalcifications are seen. Axillae are unremarkable. IMPRESSION: No mammographic features suspicious for malignancy are identified. ACR BI-RADS Category 1: Negative. Result letter will be mailed to the patient. Note: At least 10% of breast cancer is not imaged by mammography. Dictated by: Dictated on workstation # [id number]
== END ==
LOC: RAD 12:03
PROVIDERS: ATTEND Nurse Practitioner Family
DX: Z12.31 Encounter for screening mammogram for malignant neoplasm of breast (principal); Z13.820 Encounter for screening for osteoporosis; N95.1 Menopausal and female climacteric states; M85.88 Other specified disorders of bone density and structure, other site; E55.9 Vitamin D deficiency, unspecified
CPT/HCPCS: 77067; 77080

== ENCOUNTER 2018-12-03 09:30 | Day surgery (SDC) | payer OTHER ==
[~2018-12-03] VITALS: Ht 139.7 cm; Wt 55.5 kg
[~2018-12-03 09:30] MED LIST changes: +LACT1CAP72 PO; +TRAM50TA2 PO; -TRM50T PO
[2018-12-03] MEDS ORDERED: LACTATED RINGERS 1,000 ML IV STA (09:44)
[2018-12-03] MEDS ORDERED: LACTATED RINGERS 1,000 ML IV ONE (09:49)
--- NOTE | 2018-12-03 09:49 | Progress Note-Pre Operative ---
Pre-Operative Progress Note H&P Reviewed The H&P was reviewed, patient examined and no changes noted. Time Seen by Provider: 09:47 Date H&P Reviewed: Dec 03, 2018 Time H&P Reviewed: 09:47 Pre-Operative Diagnosis: Surveillance Colonoscopy NORBERT COE DO Dec 03, 2018 09:49
[2018-12-03 10:08] VITALS: BP 133/80
[2018-12-03] MEDS ORDERED: KETAMINE/NaCl 50 MG/5 ML SYRINGE ONE (10:37)
[2018-12-03] MEDS ORDERED: MIDAZOLAM 2 MG/2 ML (VERSED) VIAL ONE (10:37)
[2018-12-03] MEDS ORDERED: PROPOFOL INJECTION 50 ML IV ONE (10:38)
[2018-12-03 11:10] VITALS: BP 91/55
--- NOTE | 2018-12-03 11:13 | Progress Note-Post Operative ---
Post-Operative Progess Note Surgeon (s)/[employer] (s) Surgeon NORBERT COE DO [employer]: Alka Jaimes MSIII Pre-Operative Diagnosis Surveillance Colonoscopy Post-Operative Diagnosis internal hemorrhoids Procedure & Operative Findings Date of Procedure 12/03/18 Procedure Performed/Findings colonoscopy Anesthesia Type IV sedation by TOUCH UP WORKER Estimated Blood Loss Estimated blood loss (mL): none Specimens/Packing Specimens Removed none NORBERT COE DO Dec 03, 2018 11:13
[2018-12-03 11:15] VITALS: BP 104/59
--- NOTE | 2018-12-03 11:16 | Endoscopy Discharge Instruct ---
Endo Procedure/Findings Findings 1.: Internal Hemorrhoids Discharge Instructions - Activity: You might feel a little sleepy until tomorrow. This is due to the me dicine you received to relax you. Until tomorrow, you should: NOT drive a car, operate machinery or power tools. NOT drink any alcoholic beverages. NOT make any important decisions or sign importortant papers. Do not return to work until tomorrow, unless otherwise instructed. Resume previous activities tomorrow. Diet: Start by taking liquids. If you tolerate liquids, advance to solid food. make an appointment for one week. 1.: Colonscopy in 3 years Notify Physician - If you experience excessive bleeding, unusual abdominal pain, fever, or chest pain, contact your doctor immediately. NORBERT COE DO Dec 03, 2018 11:16
[2018-12-03 11:20] VITALS: BP 104/59
[2018-12-03 11:42] VITALS: BP 136/70
--- NOTE | 2018-12-03 15:06 | Anesthesia-General Post-Op ---
MAC Patient Condition Mental Status/LOC: Same as Preop Cardiovascular: Satisfactory Nausea/Vomiting: Absent Respiratory: Satisfactory Pain: Controlled Complications: Absent Post Op Complications Complications None Follow Up Care/Instructions Patient Instructions None needed. Anesthesiology Discharge Order Discharge Order Patient is doing well, no complaints, stable vital signs, no apparent adverse anesthesia problems. No complications reported per nursing. HIRAM STEVENSON CRNA Dec 03, 2018 15:06 POS
--- NOTE | 2018-12-03 15:34 | OPERATIVE REPORT ---
DATE OF SERVICE: 12/03/2018 PREOPERATIVE DIAGNOSES: Diarrhea, history of carcinoid. POSTOPERATIVE DIAGNOSIS: Internal hemorrhoids. PROCEDURE: Colonoscopy. SURGEON: Rogelio Clement DO COPY READER: Alka Jaimes MS3 SPECIMENS: None. BLOOD LOSS: None. FLUIDS: Per anesthesia. POSTOPERATIVE CONDITION: Stable. INDICATION FOR PROCEDURE: The patient is a 48-year-old female who has had some abdominal pain, diarrhea, history of carcinoid, needed a surveillance colonoscopy. FINDINGS: The patient had some internal hemorrhoids, but no other obvious pathology. PROCEDURE NOTE: After informed consent was obtained, the patient was brought to the endoscopy suite and placed in the left lateral decubitus position. She was administered IV sedation by the SEAMAN OFFICER who then monitored her vitals the entire time, heart rate, blood pressure and pulse ox and the scope was inserted, pushed all the way about 120 cm, able to get to the distal colon and with the anastomosis of the small bowel, took a picture. Anastomosis looked good, did not see any obvious pathology and then slowly withdrew the scope insufflating to look circumferentially at the vivar, looking at the colon down the transverse colon to the splenic flexure and then into the descending colon, then down the sigmoid and finally into the rectum, retroflexed the rectal vault, saw some very minimal internal hemorrhoids. No other obvious pathology. Scope was removed. The patient tolerated the procedure, recovered in endoscopy suite. Job ID: [id number] DocumentID: [id number] Dictated Date: 12/03/2018 11:11:31 Financial Engineer Date: 12/03/2018 15:34:24 Dictated By: ROGELIO CLEMENT DO MTDD
== END 2018-12-03 11:53 ==
LOC: ENDO 09:30
PROVIDERS: ATTEND Surgery
DX: K64.8 Other hemorrhoids (principal); R19.7 Diarrhea, unspecified; Q96.9 Turner's syndrome, unspecified; F41.8 Other specified anxiety disorders; Z90.89 Acquired absence of other organs; Z98.51 Tubal ligation status; Z90.49 Acquired absence of other specified parts of digestive tract; Z90.5 Acquired absence of kidney; Z85.030 Personal history of malignant carcinoid tumor of large intestine; Z98.0 Intestinal bypass and anastomosis status; Z88.5 Allergy status to narcotic agent; Z88.2 Allergy status to sulfonamides; Z88.8 Allergy status to other drugs, medicaments and biological substances; Z87.891 Personal history of nicotine dependence; Z82.49 Family history of ischemic heart disease and other diseases of the circulatory system; Z80.8 Family history of malignant neoplasm of other organs or systems

== ENCOUNTER 2019-03-21 08:26 | Outpatient (RCR) | payer OTHER ==
[2019-03-14 10:08] LABS: BASOPHILS % (AUTO) 0 % (0-10); EOSINOPHILS # (AUTO) 0.1 10^3/uL (0.0-0.3); EOSINOPHILS % (AUTO) 2 % (0-10); HEMATOCRIT 40 % (35-52); HEMOGLOBIN 13.8 G/DL (11.5-16.0); LYMPHOCYTES # (AUTO) 1.3 X 10^3 (1.0-4.0); LYMPHOCYTES % (AUTO) 18 % (12-44); MEAN CORPUSCULAR HEMOGLOBIN 29 PG (25-34); MEAN CORPUSCULAR HGB CONC 35 G/DL (32-36); MEAN CORPUSCULAR VOLUME 85 FL (80-99); MEAN PLATELET VOLUME 9.8 FL (7.4-10.4); MONOCYTES # (AUTO) 0.5 X 10^3 (0.0-1.0); MONOCYTES % (AUTO) 8 % (0-12); NEUTROPHILS # (AUTO) 5.1 X 10^3 (1.8-7.8); NEUTROPHILS % (AUTO) 72 % (42-75); PLATELET COUNT 198 10^3/uL (130-400); RED CELL DISTRIBUTION WIDTH 13.4 % (10.0-14.5); WHITE BLOOD COUNT 7.1 10^3/uL (4.3-11.0)
[2019-03-14 10:32] LABS: ALANINE AMINOTRANSFERASE 23 U/L (0-55); ALBUMIN 4.2 GM/DL (3.2-4.5); ALKALINE PHOSPHATASE 89 U/L (40-136); BILIRUBIN,TOTAL 0.6 MG/DL (0.1-1.0); BUN/CREATININE RATIO 19; CALCIUM 9.6 MG/DL (8.5-10.1); CARBON DIOXIDE 28 MMOL/L (21-32); CHLORIDE 105 MMOL/L (98-107); CREATININE SERUM 0.73 MG/DL (0.60-1.30); GFR ESTIMATED > 60; GLUCOSE 84 MG/DL (70-105); POTASSIUM 4.2 MMOL/L (3.6-5.0); SODIUM 140 MMOL/L (135-145); TOTAL PROTEIN 6.9 GM/DL (6.4-8.2)
[~2019-03-21 08:26] MED LIST changes: -TRAM50TA2 PO; +TRM50T PO
== END 2019-06-12 | disposition home or self-care (01) ==
LOC: ONC 08:26
PROVIDERS: ATTEND Internal Medicine Hematology & Oncology
DX: C7A.021 Malignant carcinoid tumor of the cecum (principal); Q96.9 Turner's syndrome, unspecified
CPT/HCPCS: 80053; 85025; 86316; 99213

== ENCOUNTER 2019-09-16 09:42 | Outpatient (RCR) | payer OTHER ==
[2019-09-06 10:21] LABS: BASOPHILS % (AUTO) 0 % (0-10); EOSINOPHILS # (AUTO) 0.1 10^3/uL (0.0-0.3); EOSINOPHILS % (AUTO) 1 % (0-10); HEMATOCRIT 39 % (35-52); HEMOGLOBIN 13.7 G/DL (11.5-16.0); LYMPHOCYTES # (AUTO) 1.2 X 10^3 (1.0-4.0); LYMPHOCYTES % (AUTO) 18 % (12-44); MEAN CORPUSCULAR HEMOGLOBIN 30 PG (25-34); MEAN CORPUSCULAR HGB CONC 35 G/DL (32-36); MEAN CORPUSCULAR VOLUME 86 FL (80-99); MEAN PLATELET VOLUME 9.2 FL (7.4-10.4); MONOCYTES # (AUTO) 0.5 X 10^3 (0.0-1.0); MONOCYTES % (AUTO) 8 % (0-12); NEUTROPHILS # (AUTO) 4.9 X 10^3 (1.8-7.8); NEUTROPHILS % (AUTO) 73 % (42-75); PLATELET COUNT 196 10^3/uL (130-400); WHITE BLOOD COUNT 6.7 10^3/uL (4.3-11.0)
[2019-09-06 10:45] LABS: ALANINE AMINOTRANSFERASE 17 U/L (0-55); ALKALINE PHOSPHATASE 84 U/L (40-136); BILIRUBIN,TOTAL 0.5 MG/DL (0.1-1.0); BUN/CREATININE RATIO 19; CALCIUM 8.9 MG/DL (8.5-10.1); CARBON DIOXIDE 25 MMOL/L (21-32); CHLORIDE 107 MMOL/L (98-107); CREATININE SERUM 0.73 MG/DL (0.60-1.30); GFR ESTIMATED > 60; GLUCOSE 83 MG/DL (70-105); POTASSIUM 3.8 MMOL/L (3.6-5.0); SODIUM 141 MMOL/L (135-145); TOTAL PROTEIN 6.5 GM/DL (6.4-8.2)
[~2019-09-16 09:42] MED LIST changes: -PANT40TA3 PO; +PANT40TA52 PO
== END 2019-11-01 08:10 | disposition home or self-care (01) ==
LOC: ONC 09:42
PROVIDERS: ATTEND Internal Medicine Hematology & Oncology
DX: C7A.021 Malignant carcinoid tumor of the cecum (principal); Q96.9 Turner's syndrome, unspecified
CPT/HCPCS: 80053; 85025; 86316; 99213

== ENCOUNTER 2019-12-19 22:50 | Emergency (ER) | payer OTHER ==
[~2019-12-19] VITALS: Ht 139.7 cm; Wt 64.4 kg
[~2019-12-19 22:50] MED LIST changes: -ALEN70TA5 PO; +ALEN70TA69 PO
--- NOTE | 2019-12-19 23:17 | ED Abdominal Pain ---
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 She states that her pain started this morning. She states it has been constant throughout the day. She has found that laying on her left side intensifies her pain. Patient states she has not tried any odwz-dxf-tozsryh medications or prescription medications to try and alleviate her pain. Patient states she was able to eat lunch at approximately 1 PM this afternoon. She has had normal bowel habits today of which she usually has alternating diarrhea and constipation. She is not noticed any blood in her stool. She states urine has been normal no increased frequency, dysuria or urgency. Patient states that she is not had a pain like this before. 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 She is also had an appendectomy and a cholecystectomy. Patient denies any fevers, chills, URI symptoms. No rashes. All other review of systems reviewed and negative except as stated above. Timing/Duration: 12 Hours Severity/Quality: Moderate, Dull Location: LUQ, LLQ Radiation: No Radiation Activities at Onset: None Associated Symptoms: Denies Symptoms Allergies and Home Medications Allergies Coded Allergies: Sulfa (Sulfonamide Antibiotics) (Verified Allergy, Mild, RASH, 07/02/18) acetaminophen (Verified Adverse Reaction, Mild, N/V, 07/02/18) oxycodone HCl (Verified Adverse Reaction, Mild, N/V, 07/02/18) Home Medications Cholecalciferol (Vitamin D3) 5,000 Unit Capsule, 5,000 UNIT PO DAILY, (Reported) Clonazepam 1 Mg Tablet, 1 MG PO HS PRN for ANXIETY, (Reported) Duloxetine HCl 60 Mg Capsule.dr, 60 MG PO HS, (Reported) Duloxetine HCl 30 Mg Capsule.dr, 30 MG PO HS, (Reported) Lactobacillus Combo No.10 1 Each Capsule, 1 EACH PO DAILY, (Reported) Ondansetron 4 Mg Tab.rapdis, 4 MG PO Q6H PRN for NAUSEA/VOMITING Prescribed by: CARA CANO on 11/23/18 0356 Pantoprazole Sodium 40 Mg Tablet., 40 MG PO DAILY, (Reported) Patient Home Medication List Home Medication List Reviewed: Yes Review of Systems Review of Systems Constitutional: no symptoms reported Respiratory: No Symptoms Reported Cardiovascular: No Symptoms Reported Gastrointestinal: Abdominal Pain; Denies Blood Streaked Stools, Denies Diarrhea, Denies Nausea, Denies Vomiting Genitourinary: No Symptoms Reported; Denies Burning, Denies Frequency; Flank Pain Musculoskeletal: no symptoms reported Skin: no symptoms reported Psychiatric/Neurological: No Symptoms Reported All Other Systems Reviewed Negative Unless Noted: Yes Past Qvmtnsa-Rkkfjj-Jttqzr Hx Patient Social History Alcohol Beverage of Choice: Beer Type Used: Cigars Former Smoker, Quit: Nov 27, 2013 2nd Hand Smoke Exposure: No Recent Foreign Travel: No Contact w/Someone Who Travel: No Recent Hopitalizations: No Immunizations Up To Date Tetanus Booster (TDap): Unknown PED Vaccines UTD: Yes Date of Influenza Vaccine: Nov 06, 2018 Seasonal Allergies Seasonal Allergies: No Past Medical History Surgeries: Yes Abdominal, Adenoidectomy, Appendectomy, Bowel Surgery, Ear Surgery, Gallbladder, Nephrectomy, Tonsillectomy Respiratory: No Currently Using CPAP: No Currently Using BIPAP: No Cardiac: No Neurological: No Reproductive Disorders: Yes (NICHOLS'S SYNDROME) Female Reproductive Disorders: Denies Sexually Transmitted Disease: No HIV/AIDS: No Genitourinary: Yes (S/P RIGHT NEPHRECTOMY FOR NON-FUNCTIONING KIDNEY) Kidney Infection, Bladder Infection, Kidney Stones, Polycystic Kidney Disease Gastrointestinal: Yes (HERNIA REPAIR, HEPATITIS A; BOWEL RESECTION FOR CARCINOID TUMOR) Abdominal Hernia, Colitis, Hepatitis, Gall Bladder Disease, Irritable Bowel Musculoskeletal: Yes Arthritis Endocrine: Yes (NICHOLS'S SYNDROME) HEENT: Yes Chronic Ear Infection Hearing Impairment: Hard of Hearing Cancer: Yes (CARCINOID TUMOR--S/P RESECTION) Colon Did You Recieve Any Treatments: Yes What Type of Treatment Did You: Surgical Intervention Psychosocial: Yes Anxiety, Depression Integumentary: No Blood Disorders: No Adverse Reaction/Blood Tranf: No Family Medical History SKIN CANCER 19 FATHER Cancer, Hypertension Physical Exam Vital Signs Vital Signs - First Documented 12/19/19 12/20/19 23:06 02:05 Temp 36.1 Pulse 75 Resp 20 B/P (MAP) 167/97 (120) Pulse Ox 97 Capillary Refill : Height/Weight/BMI Height: 4'7.00" Weight: 109lbs. 1.0oz. [id number]; 28.43 BMI Method:Stated General Appearance: WD/WN, no apparent distress HEENT: PERRL/EOMI Neck: normal inspection (webbed neck consistent with Nichols's Syndrome) Respiratory: lungs clear, normal breath sounds, no respiratory distress Cardiovascular: regular rate, rhythm, no edema, no gallop Gastrointestinal: normal bowel sounds, soft, guarding, tenderness (Left flank, upper and lower quadrants) Extremities: non-tender, normal inspection, no pedal edema Back: normal inspection Skin: normal color, warm/dry; No rash Progress/Results/Core Measures Results/Orders Lab Results Laboratory Tests Test 12/19/19 23:15 12/19/19 23:36 Range/Units White Blood Count 6.7 4.3-11.0 10^3/uL Red Blood Count 4.47 3.80-5.11 10^6/uL Hemoglobin 13.5 11.5-16.0 g/dL Hematocrit 40 35-52 % Mean Corpuscular Volume 88 80-99 fL Mean Corpuscular Hemoglobin 30 25-34 pg Mean Corpuscular Hemoglobin Concent 34 32-36 g/dL Red Cell Distribution Width 12.2 10.0-14.5 % Platelet Count 193 130-400 10^3/uL Mean Platelet Volume 9.8 9.0-12.2 fL Immature Granulocyte % (Auto) 0 % Neutrophils (%) (Auto) 69 42-75 % Lymphocytes (%) (Auto) 22 12-44 % Monocytes (%) (Auto) 7 0-12 % Eosinophils (%) (Auto) 1 0-10 % Basophils (%) (Auto) 0 0-10 % Neutrophils # (Auto) 4.6 1.8-7.8 10^3/uL Lymphocytes # (Auto) 1.5 1.0-4.0 10^3/uL Monocytes # (Auto) 0.5 0.0-1.0 10^3/uL Eosinophils # (Auto) 0.1 0.0-0.3 10^3/uL Basophils # (Auto) 0.0 0.0-0.1 10^3/uL Immature Granulocyte # (Auto) 0.0 0.0-0.1 10^3/uL Sodium Level 141 135-145 MMOL/L Potassium Level 3.9 3.6-5.0 MMOL/L Chloride Level 102 98-107 MMOL/L Carbon Dioxide Level 26 21-32 MMOL/L Anion Gap 13 5-14 MMOL/L Blood Urea Nitrogen 22 H 7-18 MG/DL Creatinine 0.85 0.60-1.30 MG/DL Estimat Glomerular Filtration Rate > 60 BUN/Creatinine Ratio 26 Glucose Level 98 70-105 MG/DL Calcium Level 9.3 8.5-10.1 MG/DL Urine Color YELLOW Urine Clarity CLEAR Urine pH 6.0 5-9 Urine Specific [place] 1.020 1.016-1.022 Urine Protein NEGATIVE NEGATIVE Urine Glucose (UA) NEGATIVE NEGATIVE Urine Ketones NEGATIVE NEGATIVE Urine Nitrite NEGATIVE NEGATIVE Urine Bilirubin NEGATIVE NEGATIVE Urine Urobilinogen 0.2 < = 1.0 MG/DL Urine Leukocyte Esterase TRACE H NEGATIVE Urine RBC (Auto) NEGATIVE NEGATIVE Urine RBC NONE /HPF Urine WBC RARE /HPF Urine Squamous Epithelial Cells 2-5 /HPF Urine Crystals NONE /LPF Urine Bacteria NEGATIVE /HPF Urine Casts NONE /LPF Urine Mucus NEGATIVE /LPF Urine Culture Indicated NO My Orders Orders - NAHOMI HERNANDEZ MD Ed Iv/Invasive Line Start (12/19/19 23:29) Cbc With Automated Diff (12/19/19 23:29) Basic Metabolic Panel (12/19/19 23:29) Ct Abdomen/Pelvis Wo (12/19/19 23:29) Ua Culture If Indicated (12/19/19 23:29) Fentanyl Injection (Sublimaze Injection (12/19/19 23:30) Ns Iv 1000 Ml (Sodium Chloride 0.9%) (12/19/19 23:30) Fentanyl Injection (Sublimaze Injection (12/20/19 00:15) Medications Given in ED Current Medications Medications Dose Ordered Sig/Nestor Route Start Time Stop Time Status Last Admin Dose Admin Fentanyl Citrate 25 mcg Q1H PRN IVP 12/19/19 23:30 12/20/19 02:05 DC 12/19/19 23:41 25 MCG Fentanyl Citrate 50 mcg ONCE ONCE IVP 12/20/19 00:15 12/20/19 00:16 DC 12/20/19 00:30 50 MCG Vital Signs/I&O 12/19/19 12/20/19 23:06 02:05 Temp 36.1 Pulse 75 78 Resp 20 18 B/P (MAP) 167/97 (120) 134/87 (120) Pulse Ox 97 Progress Progress Note : Time: 01:56 Progress Note 49-year-old female presents to the emergency room with a chief complaint of left upper and lower quadrant abdominal pain. Evaluation today includes a physical exam, CBC, chemistry, urinalysis, CT of the abdomen and pelvis without contrast. Labs have been reviewed and are unremarkable. The patient has no evidence for urinary tract infection/pyelonephritis. CT is unremarkable for any acute surgical pathology. She does have a small ventral anterior abdominal wall hernia containing a short segment of the transverse colon, bowel is nondilated. No free air diverticulitis is seen. No obstructing ureteral calculus is identified. Patient was treated in the emergency department with 75 mcg of fentanyl. She had relief of her symptoms. Patient continues to be comfortable without abdominal pain. No etiology was discovered for her pain. She will be sent home with instructions to take Tylenol and ibuprofen as needed. If she has a return of her symptoms she needs to come back to the emergency room within 24 hours for reevaluation. She is comfortable with the plan of care, she verbalized understanding all questions were sought and answered and she is stable for discharge. Diagnostic Imaging Diagonstic Imaging: CT Plain Films/CT/US/NM/MRI: abdomen Comments CT abd/pelvis : small ventral hernia containing transverse colon (unchanged from previous study); no kidney stones; no evidence of diverticulitis (per [facility]) Departure Impression Primary Impression: Abdominal pain Qualified Codes: R10.12 - Left upper quadrant pain Disposition: 01 HOME, SELF-CARE Condition: Stable Departure-Patient Inst. Decision time for Depature: 01:59 Referrals: [facility] (PCP) Primary Care Physician SUMMER HUNG APRN (Family) Primary Care Physician Patient Instructions: Severe Abdominal Pain, Adult (DC) Add. Discharge Instructions: [place] diet for 12-24 hours Take xstu-gea-jyvvupe Tylenol or ibuprofen as needed for symptoms if they return. If you have fever, nausea vomiting, any other emergent concerning symptoms please return to the emergency room for reevaluation. Follow-up with your primary care doctor as needed. NAHOMI HERNANDEZ MD Dec 19, 2019 23:17
[2019-12-19] MEDS ORDERED: NS IV 1000 ML 1,000 ML IV SCH (23:30)
[2019-12-19] MEDS ORDERED: fentaNYL INJECTION 100 MCG/2 ML AMP IVP PRN (23:30)
[2019-12-19 23:37] LABS: BASOPHILS % (AUTO) 0 % (0-10); EOSINOPHILS # (AUTO) 0.1 10^3/uL (0.0-0.3); EOSINOPHILS % (AUTO) 1 % (0-10); HEMATOCRIT 40 % (35-52); HEMOGLOBIN 13.5 g/dL (11.5-16.0); LYMPHOCYTES # (AUTO) 1.5 10^3/uL (1.0-4.0); LYMPHOCYTES % (AUTO) 22 % (12-44); MEAN CORPUSCULAR HEMOGLOBIN 30 pg (25-34); MEAN CORPUSCULAR HGB CONC 34 g/dL (32-36); MEAN CORPUSCULAR VOLUME 88 fL (80-99); MEAN PLATELET VOLUME 9.8 fL (9.0-12.2); MONOCYTES # (AUTO) 0.5 10^3/uL (0.0-1.0); MONOCYTES % (AUTO) 7 % (0-12); NEUTROPHILS # (AUTO) 4.6 10^3/uL (1.8-7.8); NEUTROPHILS % (AUTO) 69 % (42-75); PLATELET COUNT 193 10^3/uL (130-400); WHITE BLOOD COUNT 6.7 10^3/uL (4.3-11.0)
[2019-12-19 23:40] LABS: BILIRUBIN,URINE NEGATIVE (NEGATIVE); CLARITY,URINE CLEAR; COLOR,URINE YELLOW; GLUCOSE, URINE (UA) NEGATIVE (NEGATIVE); KETONES,URINE NEGATIVE (NEGATIVE); LEUKOCYTE ESTERASE ,URINE TRACE (NEGATIVE); NITRITE,URINE NEGATIVE (NEGATIVE); PROTEIN,URINE NEGATIVE (NEGATIVE)
[2019-12-19 23:46] LABS: BUN/CREATININE RATIO 26; CALCIUM 9.3 MG/DL (8.5-10.1); CARBON DIOXIDE 26 MMOL/L (21-32); CHLORIDE 102 MMOL/L (98-107); CREATININE SERUM 0.85 MG/DL (0.60-1.30); GFR ESTIMATED > 60; GLUCOSE 98 MG/DL (70-105); POTASSIUM 3.9 MMOL/L (3.6-5.0); SODIUM 141 MMOL/L (135-145)
[2019-12-20 00:04] LABS: BACTERIA,URINE NEGATIVE /HPF; WBC,URINE RARE /HPF
[2019-12-20] MEDS ORDERED: fentaNYL INJECTION 100 MCG/2 ML AMP IVP ONE (00:15)
[2019-12-20 02:05] VITALS: BP 134/87
--- NOTE | 2019-12-20 07:19 | Diagnostic Imaging Report ---
PROCEDURE: CT abdomen and pelvis without contrast. TECHNIQUE: Multiple contiguous axial images were obtained through the abdomen and pelvis without the use of intravenous contrast. Auto Exposure Controls were utilized during the CT exam to meet ALARA standards for radiation dose reduction. INDICATION: Left flank pain. 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 Multiple postoperative changes seen throughout the abdomen and pelvis. There is an anterior abdominal wall hernia which contains increasing amounts of bowel when compared to previous imaging but no evidence for strangulation or obstruction seen at this time. There is no free fluid or free air in the abdomen or the pelvis. No inflammatory change about the bowel loops. The liver, spleen, adrenal glands, and pancreas grossly unremarkable on this noncontrast examination which does limit evaluation. There is evidence of previous cholecystectomy. Lung bases unremarkable for acute abnormality. No acute osseous abnormality appreciated. 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 IMPRESSION: 1. Anterior abdominal wall hernia containing loops of large bowel without strangulation or obstructive process seen at this time. 2. Anatomical variant left kidney with vvna-oq-kjdaoqzj renal pelvic caliectasis, increased from previous imaging but an obstructive process is not seen at this time. This finding could be due to a recently passed stone or pyelonephritis; correlate with symptoms. Dictated by: Dictated on workstation # [id number]
== END 2019-12-20 02:05 | disposition home or self-care (01) ==
LOC: EDUNIT# 22:50 → ER 22:51
DX: R10.12 Left upper quadrant pain (principal); R10.32 Left lower quadrant pain; F41.9 Anxiety disorder, unspecified; F32.9 Major depressive disorder, single episode, unspecified; Z88.5 Allergy status to narcotic agent; Z88.2 Allergy status to sulfonamides; Z88.6 Allergy status to analgesic agent; Z87.891 Personal history of nicotine dependence; Z85.038 Personal history of other malignant neoplasm of large intestine; Z82.49 Family history of ischemic heart disease and other diseases of the circulatory system; Z80.8 Family history of malignant neoplasm of other organs or systems
CPT/HCPCS: 36415; 74176; 80048; 81000; 85025

== ENCOUNTER 2020-04-03 09:47 | Outpatient (RCR) | payer OTHER ==
[2020-03-26 09:22] LABS: BASOPHILS % (AUTO) 0 % (0-10); EOSINOPHILS # (AUTO) 0.1 10^3/uL (0.0-0.3); EOSINOPHILS % (AUTO) 1 % (0-10); HEMATOCRIT 42 % (35-52); HEMOGLOBIN 14.4 g/dL (11.5-16.0); LYMPHOCYTES # (AUTO) 1.5 10^3/uL (1.0-4.0); LYMPHOCYTES % (AUTO) 18 % (12-44); MEAN CORPUSCULAR HEMOGLOBIN 30 pg (25-34); MEAN CORPUSCULAR HGB CONC 34 g/dL (32-36); MEAN CORPUSCULAR VOLUME 89 fL (80-99); MEAN PLATELET VOLUME 9.5 fL (9.0-12.2); MONOCYTES # (AUTO) 0.7 10^3/uL (0.0-1.0); MONOCYTES % (AUTO) 8 % (0-12); NEUTROPHILS # (AUTO) 5.9 10^3/uL (1.8-7.8); NEUTROPHILS % (AUTO) 72 % (42-75); PLATELET COUNT 209 10^3/uL (130-400); WHITE BLOOD COUNT 8.2 10^3/uL (4.3-11.0)
[2020-03-26 09:42] LABS: ALANINE AMINOTRANSFERASE 22 U/L (0-55); ALBUMIN 4.2 GM/DL (3.2-4.5); ALKALINE PHOSPHATASE 92 U/L (40-136); BILIRUBIN,TOTAL 0.5 MG/DL (0.1-1.0); BUN/CREATININE RATIO 25; CALCIUM 9.5 MG/DL (8.5-10.1); CARBON DIOXIDE 26 MMOL/L (21-32); CHLORIDE 102 MMOL/L (98-107); GFR ESTIMATED > 60; GLUCOSE 79 MG/DL (70-105); SODIUM 138 MMOL/L (135-145); TOTAL PROTEIN 7.2 GM/DL (6.4-8.2)
[~2020-04-03 09:47] MED LIST changes: -ALEN70TA69 PO; +ALEN70TA80 PO; -CIPR500T4 PO; +CIPR500T5 PO
== END 2020-06-24 | disposition home or self-care (01) ==
LOC: ONC 09:47
PROVIDERS: ATTEND Internal Medicine Hematology & Oncology
DX: D37.2 Neoplasm of uncertain behavior of small intestine (principal); F41.9 Anxiety disorder, unspecified; R91.1 Solitary pulmonary nodule
CPT/HCPCS: 80053; 83497; 85025; 86316; 99213

== ENCOUNTER → 2020-05-22 | Outpatient (CLI) | payer OTHER | LOC: CARD 10:00 | PROVIDERS: ATTEND Nurse Practitioner Family | DX: Q96.9 Turner's syndrome, unspecified (principal) | CPT/HCPCS: 93306 ==

== ENCOUNTER 2020-08-30 02:49 | Inpatient (IN) | payer OTHER ==
[~2020-08-30] VITALS: Ht 139.7 cm; Wt 54.4 kg
[2020-08-30 03:26] LABS: BILIRUBIN,URINE NEGATIVE (NEGATIVE); CLARITY,URINE CLEAR; COLOR,URINE YELLOW; GLUCOSE, URINE (UA) NEGATIVE (NEGATIVE); KETONES,URINE NEGATIVE (NEGATIVE); LEUKOCYTE ESTERASE ,URINE TRACE (NEGATIVE); NITRITE,URINE NEGATIVE (NEGATIVE); PROTEIN,URINE NEGATIVE (NEGATIVE)
[2020-08-30] MEDS ORDERED: fentaNYL INJ 100 MCG/2 ML AMP IVP STA ×2 (03:32→05:12)
[2020-08-30 03:35] LABS: BACTERIA,URINE NEGATIVE /HPF; WBC,URINE RARE /HPF
[2020-08-30] MEDS ORDERED: LACTATED RINGERS 1,000 ML IV ONE (03:45)
[2020-08-30 03:54] LABS: BASOPHILS % (AUTO) 0 % (0-10); EOSINOPHILS % (AUTO) 0 % (0-10); HEMATOCRIT 42 % (35-52); HEMOGLOBIN 14.1 g/dL (11.5-16.0); LYMPHOCYTES # (AUTO) 0.7 10^3/uL (1.0-4.0); LYMPHOCYTES % (AUTO) 6 % (12-44); MEAN CORPUSCULAR HEMOGLOBIN 29 pg (25-34); MEAN CORPUSCULAR HGB CONC 34 g/dL (32-36); MEAN CORPUSCULAR VOLUME 87 fL (80-99); MONOCYTES # (AUTO) 0.5 10^3/uL (0.0-1.0); MONOCYTES % (AUTO) 4 % (0-12); NEUTROPHILS # (AUTO) 10.3 10^3/uL (1.8-7.8); NEUTROPHILS % (AUTO) 88 % (42-75); PLATELET COUNT 352 10^3/uL (130-400); WHITE BLOOD COUNT 11.6 10^3/uL (4.3-11.0)
[2020-08-30 04:06] LABS: ALBUMIN 3.8 GM/DL (3.2-4.5)
[2020-08-30 04:07] LABS: CALCIUM 9.1 MG/DL (8.5-10.1)
[2020-08-30 04:09] LABS: TOTAL PROTEIN 6.8 GM/DL (6.4-8.2)
[2020-08-30 04:10] LABS: BILIRUBIN,TOTAL 0.4 MG/DL (0.1-1.0)
[2020-08-30 04:12] LABS: CREATININE SERUM 0.78 MG/DL (0.60-1.30)
[2020-08-30 04:45] LABS: ERYTHROCYTE SEDIMENTATION RATE 19 MM/HR (0-20)
[2020-08-30] MEDS ORDERED: NS 100 ML (IVPB) BAG IV ONE (04:45)
[2020-08-30] MEDS ORDERED: IOHEXOL 350 MG/ML 100 ML (OMNIPAQUE 350) VIAL IV ONE (04:45)
[2020-08-30] MEDS ORDERED: NS IV 1000 ML 1,000 ML IV SCH (05:15)
--- NOTE | 2020-08-30 05:53 | ED Abdominal Pain ---
General Chief Complaint: Abdominal/GI Problems Stated Complaint: L SIDE PAIN Nursing Triage Note: LEFT LOWER ABDOMINAL PAIN X5 HRS. DENIES INJURY. Source of Information: Patient (VERY HARD OF HEARING AND IS LIMITED HISTORIAN ABOUT PAST MEDICAL HISTORY) History of Present Illness Date Seen by Provider: Aug 30, 2020 Time Seen by Provider: 03:12 Initial Comments PT ARRIVES VIA POV FROM HOME C/O LLQ PAIN X 4-5 HOURS STATES SHE WENT OUT TO EAT AROUND 2000 TONIGHT--[employer] WENT TO BED BETWEEN 2200 AND 2300 AND BEGAN HAVING PAIN WHEN SHE WENT TO BED HAS HAD NAUSEA, NO VOMITING HAD A NORMAL/LOOSE BM EARLIER TODAY--NO BLACK/BLOODY/TARRY STOOLS. NO FEVER NO URINARY SYMPTOMS NO RADIATION OF PAIN PAIN IS MUCH WORSE WITH ANY MOVEMENTS TOOK TYLENOL X 1 TONIGHT WITHOUT RELIEF PT HAS HAD MULTIPLE ABDOMINAL SURGERIES, INCLUDING COLON RESECTIONS FOR CANCER ( CARCINOID PER OLD RECORDS), BOWEL PERFORATION, BOWEL OBSTRUCTION ALSO HAS HAD CHOLECYSTECTOMY, APPENDECTOMY, RIGHT NEPHRECTOMY, VENTRAL HERNIA REPAIR PT ALSO HAS HISTORY OF DIVERTICULOSIS/DIVERTICULITIS. LAST COLONOSCOPY 11/2018 HAS HAD MULTIPLE PRIOR VISITS FOR ABDOMINAL PAIN COMPLAINTS PCP: [facility] [place] SURGEON: DR. COE ONCOLOGY: DR. MORALES Allergies and Home Medications Allergies Coded Allergies: Sulfa (Sulfonamide Antibiotics) (Verified Allergy, Mild, RASH, 07/02/18) acetaminophen (Verified Adverse Reaction, Mild, N/V, 07/02/18) oxycodone HCl (Verified Adverse Reaction, Mild, N/V, 07/02/18) Home Medications Duloxetine HCl 60 Mg Capsule.dr, 60 MG PO HS, (Reported) Duloxetine HCl 30 Mg Capsule.dr, 30 MG PO HS, (Reported) Lactobacillus Combo No.10 1 Each Capsule, 1 EACH PO DAILY, (Reported) Pantoprazole Sodium 40 Mg Tablet.dr, 40 MG PO DAILY, (Reported) Patient Home Medication List Home Medication List Reviewed: Yes Review of Systems Review of Systems Constitutional: no symptoms reported Respiratory: No Symptoms Reported Cardiovascular: No Symptoms Reported Gastrointestinal: See HPI, Abdominal Pain; Denies Constipated; Nausea; Denies Vomiting Genitourinary: No Symptoms Reported Musculoskeletal: no symptoms reported Skin: no symptoms reported Psychiatric/Neurological: No Symptoms Reported Endocrine: No Symptoms Reported Hematologic/Lymphatic: No Symptoms Reported Past Yubvuwv-Qgvdqn-Fndwjr Hx Patient Social History Tobacco Use?: No Smokeless Tobacco Frequency: Never a User Use of E-Cig and/or Vaping dev: No Use of E-Cig and/or Vaping Avni: Never a User Substance use?: No Alcohol Use?: Yes Alcohol Frequency: Once in a while Pt feels they are or have been: No Immunizations Up To Date Tetanus Booster (TDap): Unknown PED Vaccines UTD: Yes Seasonal Allergies Seasonal Allergies: No Past Medical History Surgery/Hospitalization HX: RIGHT NEPHRECTOMY FOR " KIDNEY" VENTRAL HERNIA REPAIR BOWEL RESECTIONS APPENDECTOMY CHOLECYSTECTOMY BMT'S TONSILLECTOMY/ADENOIDECTOMY COLONOSCOPIES--LAST ONE 11/2018 Surgeries: Yes Abdominal, Adenoidectomy, Appendectomy, Bowel Surgery, Ear Surgery, Gallbladder, Nephrectomy, Tonsillectomy Respiratory: No Currently Using CPAP: No Currently Using BIPAP: No Cardiac: No Neurological: No Reproductive Disorders: Yes (NICHOLS'S SYNDROME) Sexually Transmitted Disease: No HIV/AIDS: No Genitourinary: Yes (S/P RIGHT NEPHRECTOMY FOR NON-FUNCTIONING KIDNEY) Kidney Infection, Bladder Infection, Kidney Stones, Polycystic Kidney Disease Gastrointestinal: Yes (HERNIA REPAIR, HEPATITIS A; BOWEL RESECTION FOR CARCINOID TUMOR) Abdominal Hernia, Colitis, Obstructive Bowel, Diverticulosis, Hemorrhoids, Hepatitis, Gall Bladder Disease, Irritable Bowel Musculoskeletal: Yes Arthritis Endocrine: Yes (NICHOLS'S SYNDROME) HEENT: Yes Chronic Ear Infection, Tonsilitis Hearing Impairment: Hard of Hearing Cancer: Yes (CARCINOID TUMOR--S/P RESECTION) Colon Did You Recieve Any Treatments: Yes What Type of Treatment Did You: Surgical Intervention METS TO LUNGS. Psychosocial: Yes Anxiety, Depression Integumentary: No Blood Disorders: No Adverse Reaction/Blood Tranf: No Family Medical History SKIN CANCER 19 FATHER Cancer, Hypertension Physical Exam Vital Signs Vital Signs - First Documented 08/30/20 03:14 Temp 36.9 Pulse 91 Resp 18 B/P (MAP) 151/89 (109) Pulse Ox 98 O2 Delivery Room Air Capillary Refill : Less Than 3 Seconds Height/Weight/BMI Height: 4'7.00" Weight: 109lbs. 1.0oz. 49.346501ki; 27.00 BMI Method:Stated General Appearance: other (HOLDING LLQ, LOOKS UNCOMFORTABLE; SMALL STATURE/CHARACTERISTICS OF NICHOLS'S SYNDROME) HEENT: PERRL/EOMI Respiratory: normal breath sounds, no respiratory distress, no accessory muscle use Cardiovascular: regular rate, rhythm, no murmur Gastrointestinal: abnormal bowel sounds (TYMPANIC), distended (UPPER ABDOMEN IS DISTENDED AND FIRM. ), guarding (MILD), tenderness (DIFFUSE TENDERNESS BUT IS MOST TENDER IN UPPER ABDOMEN), hernia (VENTRAL HERNIA PRESENT) Extremities: normal inspection, no pedal edema Neurologic/Psychiatric: no motor/sensory deficits, alert, normal mood/affect, oriented x 3 Skin: normal color, warm/dry, tattoos/piercings (TATTOOS) Progress/Results/Core Measures Results/Orders Lab Results Laboratory Tests Test 08/30/20 03:12 08/30/20 03:40 Range/Units Urine Color YELLOW Urine Clarity CLEAR Urine pH 6.0 5-9 Urine Specific [place] 1.025 H 1.016-1.022 Urine Protein NEGATIVE NEGATIVE Urine Glucose (UA) NEGATIVE NEGATIVE Urine Ketones NEGATIVE NEGATIVE Urine Nitrite NEGATIVE NEGATIVE Urine Bilirubin NEGATIVE NEGATIVE Urine Urobilinogen 0.2 < = 1.0 MG/DL Urine Leukocyte Esterase TRACE H NEGATIVE Urine RBC (Auto) NEGATIVE NEGATIVE Urine RBC NONE /HPF Urine WBC RARE /HPF Urine Squamous Epithelial Cells 2-5 /HPF Urine Crystals NONE /LPF Urine Bacteria NEGATIVE /HPF Urine Casts NONE /LPF Urine Mucus SMALL H /LPF Urine Culture Indicated NO White Blood Count 11.6 H 4.3-11.0 10^3/uL Red Blood Count 4.80 3.80-5.11 10^6/uL Hemoglobin 14.1 11.5-16.0 g/dL Hematocrit 42 35-52 % Mean Corpuscular Volume 87 80-99 fL Mean Corpuscular Hemoglobin 29 25-34 pg Mean Corpuscular Hemoglobin Concent 34 32-36 g/dL Red Cell Distribution Width 11.8 10.0-14.5 % Platelet Count 352 130-400 10^3/uL Mean Platelet Volume 9.0 9.0-12.2 fL Immature Granulocyte % (Auto) 1 % Neutrophils (%) (Auto) 88 H 42-75 % Lymphocytes (%) (Auto) 6 L 12-44 % Monocytes (%) (Auto) 4 0-12 % Eosinophils (%) (Auto) 0 0-10 % Basophils (%) (Auto) 0 0-10 % Neutrophils # (Auto) 10.3 H 1.8-7.8 10^3/uL Lymphocytes # (Auto) 0.7 L 1.0-4.0 10^3/uL Monocytes # (Auto) 0.5 0.0-1.0 10^3/uL Eosinophils # (Auto) 0.0 0.0-0.3 10^3/uL Basophils # (Auto) 0.0 0.0-0.1 10^3/uL Immature Granulocyte # (Auto) 0.1 0.0-0.1 10^3/uL Erythrocyte Sedimentation Rate 19 0-20 MM/HR Sodium Level 144 135-145 MMOL/L Potassium Level 4.0 3.6-5.0 MMOL/L Chloride Level 106 98-107 MMOL/L Carbon Dioxide Level 26 21-32 MMOL/L Anion Gap 12 5-14 MMOL/L Blood Urea Nitrogen 12 7-18 MG/DL Creatinine 0.78 0.60-1.30 MG/DL Estimat Glomerular Filtration Rate 79 BUN/Creatinine Ratio 15 Glucose Level 130 H 70-105 MG/DL Calcium Level 9.1 8.5-10.1 MG/DL Corrected Calcium 9.3 8.5-10.1 MG/DL Total Bilirubin 0.4 0.1-1.0 MG/DL Aspartate Amino Transf (AST/SGOT) 15 5-34 U/L Alanine Aminotransferase (ALT/SGPT) 30 0-55 U/L Alkaline Phosphatase 139 H 40-136 U/L C-Reactive Protein High Sensitivity 0.18 0.00-0.50 MG/DL Total Protein 6.8 6.4-8.2 GM/DL Albumin 3.8 3.2-4.5 GM/DL Amylase Level 145 H 25-125 U/L Lipase 34 8-78 U/L My Orders Orders - ANNITA SPENCER DO Ua Culture If Indicated (08/30/20 03:09) Urine Bedside (08/30/20 03:14) Ed Iv/Invasive Line Start (08/30/20 03:32) Amylase (08/30/20 03:32) Cbc With Automated Diff (08/30/20 03:32) Comprehensive Metabolic Panel (08/30/20 03:32) Hs C Reactive Protein (08/30/20 03:32) Lipase (08/30/20 03:32) Erythrocyte Sedimentation Rate (08/30/20 03:32) Acute Abd Series (08/30/20 03:32) Ed Iv/Invasive Line Start (08/30/20 03:32) Lactated Ringers (Lr 1000 Ml Iv Solution (08/30/20 03:45) Fentanyl Inj (Sublimaze Injection) (08/30/20 03:32) Ct Abdomen/Pelvis W (08/30/20 03:40) Iohexol Injection (Omnipaque 350 Mg/Ml 1 (08/30/20 04:45) Ns (Ivpb) (Sodium Chloride 0.9% Ivpb Bag (08/30/20 04:45) Ed Iv/Invasive Line Start (08/30/20 05:12) Ns Iv 1000 Ml (Sodium Chloride 0.9%) (08/30/20 05:15) Fentanyl Inj (Sublimaze Injection) (08/30/20 05:12) Medications Given in ED Current Medications Medications Dose Ordered Sig/Nestor Route Start Time Stop Time Status Last Admin Dose Admin Iohexol 100 ml ONCE ONCE IV 08/30/20 04:45 08/30/20 04:59 DC 08/30/20 04:33 100 ML Lactated Ringer's 1,000 ml @ 0 mls/hr Q0M ONCE IV 08/30/20 03:45 08/30/20 03:46 DC 08/30/20 03:41 0 MLS/HR Sodium Chloride 80 ml ONCE ONCE IV 08/30/20 04:45 08/30/20 04:59 DC 08/30/20 04:33 80 ML Vital Signs/I&O 08/30/20 08/30/20 03:14 03:41 Temp 36.9 36.9 Pulse 91 Resp 18 B/P (MAP) 151/89 (109) Pulse Ox 98 O2 Delivery Room Air Blood Pressure Mean: 109 Progress Progress Note : Progress Note GIVEN IV FLUIDS AND FENTANYL FOR PAIN NO DETERIORATION IN PT'S CONDITION DURING ER STAY Diagnostic Imaging Comments ABDOMEN XRAYS--NON-SPECIFIC BOWEL GAS PATTERN, PENDING RADIOLOGIST REVIEW CT ABDOMEN/PELVIS--DISTAL SMALL BOWEL OBSTRUCTION, EXTENDING THROUGH SMALL BOWEL ANASTAMOSIS. VENTRAL ABDOMINAL HERNIA CONTAINING LOOPS OF TRANSVERSE COLON IS UNCHANGED FROM PREVIOUS AND DOES NOT APPEAR TO BE THE SOURCE OF OBSTRUCTION. NO FREE AIR. NEW, SCATTERED, ILL-DEFINED BIBASILAR PULMONARY NODULES. PER [facility] VIA FAX AT 0603 Reviewed: Reviewed by [place] Departure Communication (Admissions) 0603--SPOKE WITH DR. BEAVER, SURGEON HISTORICAL SOCIETY DIRECTOR. ACCEPTS PT FOR ADMIT. ORDERS NOTED FOR NG TUBE AND SMALL BOWEL FOLLOW THROUGH TOMORROW 608--SPOKE WITH DR. ANN, HISTORICAL SOCIETY DIRECTOR FOR [facility], FOR MEDICINE CONSULT Impression Primary Impression: Small bowel obstruction Additional Impressions: Hx of malignant carcinoid tumor Nichols's syndrome Disposition: ADMITTED INPATIENT Condition: Stable Admissions Decision to Admit Reason: Admit from ER (General) Decision to Admit/Date: Aug 30, 2020 Time/Decision to Admit Time: 06:05 Departure-Patient Inst. Referrals: [facility] [place] (PCP) Primary Care Physician SUMMER HUNG APRN (Family) Primary Care Physician ANNITA SPENCER DO Aug 30, 2020 05:53
[2020-08-30] MEDS ORDERED: ONDANSETRON 4 MG/2 ML (SDV) Z0FRAN ONE (06:35)
--- NOTE | 2020-08-30 07:36 | Diagnostic Imaging Report ---
INDICATION: History of colon cancer, left lower quadrant pain. Compared 10/17/2017 FINDINGS: The cardiomediastinal contours are stable, however, nodular opacities in the bilateral lungs have developed. Unclear if this is metastatic or multifocal infiltrates. Short-term follow-up recommended and if persistent consider subsequent CT chest. The bowel gas pattern is unremarkable. There is stool in the colon but its volume is not grossly pathologic. There is extensive postsurgical changes. There is no air-fluid level or free intraperitoneal gas. IMPRESSION: 1. Nonobstructive unremarkable bowel gas pattern. 2. Vague nodular opacities having developed in the bilateral lungs, indeterminate metastatic versus infiltrates. Radiographic follow-up recommended. Dictated by: Dictated on workstation # [id number]
[2020-08-30 08:20] VITALS: BP 173/98
--- NOTE | 2020-08-30 08:43 | Diagnostic Imaging Report ---
PROCEDURE: CT abdomen and pelvis with contrast. TECHNIQUE: Multiple contiguous axial images were obtained through the abdomen and pelvis after administration of intravenous contrast. Auto Exposure Controls were utilized during the CT exam to meet ALARA standards for radiation dose reduction. All CT scans use one or more of the following dose optimizing techniques: automated exposure control, MA and/or KvP adjustment based on patient size and exam type or iterative reconstruction. INDICATION: Left lower quadrant pain, history of colon cancer. Compared with abdominal pelvic CT dated 12/19/2019. There are findings of a high-grade small bowel obstruction distally. There are some decompressed distal ileal loops of bowel in the right lower quadrant. The transition appears deep and inferior to the ventral abdominal wall hernia comprised of a segment of transverse colon. There is no transition zone across the hernia and this itself is unchanged. At the small bowel transition, there is some congestion and edema of the subtending mesentery and trace free fluid. No loculated collection or abscess. No pneumatosis or free gas. The unobstructed solitary left kidney is incompletely rotated with few parapelvic cysts chronic. It is not overtly hydronephrotic and no perinephric or periureteric edema. The stomach and duodenum are distended with fluid. The gallbladder surgically absent. There is no liver mass. The spleen, adrenals and pancreas unremarkable. No lymphadenopathy. IMPRESSION: 1. High-grade distal small bowel obstruction with regional edema and congestion of the subtending mesentery and small volume free fluid but no abscess or perforation. 2. Ventral maya-incisional abdominal wall hernia comprised of a mid segment transverse colon; this is unchanged and does not reflect the transition itself. 3. Solitary left kidney unobstructed and stable. Absent gallbladder with unremarkable liver. Intact adrenal glands. Dictated by: Dictated on workstation # [id number]
[2020-08-30] MEDS: D5 1/2 NS W/KCL 20 MEQ/L 1,000 ML IV SCH ×2 (09:32→16:19)
[2020-08-30 11:23] VITALS: BP 142/85
--- NOTE | 2020-08-30 12:18 | Consultation - Hospitalist ---
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 Dr. Perez has admitted to his service and consulted medicine. NG tube in place. Abdominal pain much improved. I have checked meds and labs. Source: patient, RN/MD, old records Exam Limitations: no limitations Date Seen 08/30/20 Attending Physician John Perez DO [facility] [place],[facility] Referring Physician Date of Admission Aug 30, 2020 at 06:10 Home Medications & Allergies Home Medications Reviewed patient Home Medication Reconciliation performed by pharmacy medication reconciliations critical power technician and/or nursing. Patients Allergies have been reviewed. Allergies Allergies Coded Allergies Sulfa (Sulfonamide Antibiotics) (Verified Allergy, Mild, RASH, 07/02/18) acetaminophen (Verified Adverse Reaction, Mild, N/V, 07/02/18) oxycodone HCl (Verified Adverse Reaction, Mild, N/V, 07/02/18) Past Ukknsax-Gtmzro-Pabrqk Hx Patient Social History Marrital Status: single Employed/Student: employed Tobacco Use?: No Tobacco type used: Cigarettes Smoking Status: Former Smoker Smokeless Tobacco Frequency: Never a User Use of E-Cig and/or Vaping dev: No Use of E-Cig and/or Vaping Avni: Never a User Substance use?: No Alcohol Use?: No Alcohol Frequency: Once in a while Pt feels they are or have been: No Immunizations Up To Date Date of Influenza Vaccine: Nov 06, 2018 Tetanus Booster (TDap): Unknown PED Vaccines UTD: Yes Seasonal Allergies Seasonal Allergies: No Current Status status: No status: No Advance Directives: No Communicates: Verbally Primary Language: Luxembourgish Preferred Spoken Language: Luxembourgish Is interpretation needed?: No Sensory deficits: Vision impairment, Hearing impairment Implanted or Applied Medical D: None Past Medical History Surgeries: Abdominal, Adenoidectomy, Appendectomy, Bowel Surgery, Ear Surgery, Gallbladder, Nephrectomy, Tonsillectomy Currently Using CPAP: No Currently Using BIPAP: No Sexually Transmitted Disease: No HIV/AIDS: No Kidney Infection, Bladder Infection, Kidney Stones, Polycystic Kidney Disease Abdominal Hernia, Colitis, Obstructive Bowel, Diverticulosis, Hemorrhoids, Hepatitis, Gall Bladder Disease, Irritable Bowel Arthritis Chronic Ear Infection, Tonsilitis Hearing Impairment: Hard of Hearing Colon Did You Recieve Any Treatments: Yes What Type of Treatment Did You: Surgical Intervention METS TO LUNGS. Anxiety, Depression Blood Disorders: No Adverse Reaction/Blood Tranf: No Ileal Carcinoid Tumor, s/p resection Major Depression Anxiety Pelletier Syndrome IBS Single Kidney (left) Polycystic Kidney Disease Bilateral Hearing Loss Vitamin D Deficiency Hx Hepatitis A Kidney Stones Arthritis Past Surgical Hx Hiatal Hernia Repair Cholecystectomy Tonsillectomy Appendectomy Right Nephrectomy - 1996 Bilateral Myringotomy Tubes Colonoscopy Ventral Hernia Repair - July [address] Clement Carcinoid Tumor Resection - July [address] Clement Family Medical History SKIN CANCER 19 FATHER Cancer, Hypertension Review of Systems Constitutional: see HPI Gastrointestinal: abdominal pain, loss of appetite, nausea, vomiting Physical Exam Physical Exam Vital Signs Vital Signs - First Documented 08/30/20 08/30/20 03:14 08:20 Temp 36.9 Pulse 91 Resp 18 B/P (MAP) 151/89 (109) Pulse Ox 98 O2 Delivery Room Air O2 Flow Rate 1.00 Capillary Refill : Less Than 3 Seconds Height, Weight, BMI Height: 4'7.00" Weight: 109lbs. 1.0oz. [id number]; 27.87 BMI Method:Stated General Appearance: No Apparent Distress, WD/WN, Chronically ill Eyes: Bilateral Eye Normal Inspection, Bilateral Eye PERRL HEENT: PERRL/EOMI, Normal ENT Inspection, Pharynx Normal Neck: Full Range of Motion, Normal Inspection, Non Tender, Supple, Carotid Bruit Respiratory: Chest Non Tender, Lungs Clear, Normal Breath Sounds, No Accessory Muscle Use, No Respiratory Distress Cardiovascular: Regular Rate, Rhythm, No Edema, No Gallop, No JVD, No Murmur, Normal Peripheral Pulses Gastrointestinal: No Organomegaly, No Pulsatile Mass, Non Tender, Soft, Abnormal Bowel Sounds Back: Normal Inspection, No CVA Tenderness, No Vertebral Tenderness Extremity: Normal Capillary Refill, Normal Inspection, Normal Range of Motion, Non Tender, No Calf Tenderness, No Pedal Edema Neurologic/Psychiatric: Alert, Oriented x3, No Motor/Sensory Deficits, Normal Mood/Affect Skin: Normal Color, Warm/Dry Lymphatic: No Adenopathy Results Results/Procedures Labs Laboratory Tests 08/30/20 03:40 08/31/20 05:10 Patient resulted labs reviewed. Assessment/Plan Assessment and Plan Assess & Plan/Chief Complaint Assessment: Small bowel obstruction History of bowel obstructions and multiple bowel surgeries Pelletier syndrome Polycystic kidney disease History of carcinoid syndrome Plan: NG tube Pain control IV fluids Diagnosis/Problems Diagnosis/Problems (1) Small bowel obstruction Status: Acute (2) Pelletier's syndrome Status: Acute (3) Hx of malignant carcinoid tumor Status: Acute (4) Abdominal pain Status: Acute DOUGLAS ANN DO Aug 30, 2020 12:18
--- NOTE | 2020-08-30 15:19 | History & Physical-Surgical ---
History of Present Illness History of Present Illness Reason for visit/HPI Chief complaint nausea vomiting abdominal pain. Patient is a 49-year-old female who last night went out to eat went to bed woke up having nausea and vomiting. Had a loose stool. No blood in the stool. Patient has continued to have increasing abdominal distention. Continues to have nausea and emesis. Nothing seems to make it worse that she knows of. Nothing really seems to make it better. Patient abdominal pain is around the middle of her abdomen no radiation of pain. Moderate discomfort. She just had an NG tube placed in the emergency department as well. Patient with multiple past surgical interventions and also with history of carcinoid. Patient had a CT scan that was consistent with distal small bowel obstruction and a bowel containing incisional hernia which does not appear to be the source of obstruction.. Date of Admission Aug 30, 2020 at 06:10 Date Seen by a Provider: Aug 30, 2020 Time Seen by a Provider: 07:30 I consulted on this patient on 08/30/20 15:10 Attending Physician Sarah Perez DO Admitting Physician [place] Consult Allergies and Home Medications Allergies Coded Allergies: Sulfa (Sulfonamide Antibiotics) (Verified Allergy, Mild, RASH, 07/02/18) acetaminophen (Verified Adverse Reaction, Mild, N/V, 07/02/18) oxycodone HCl (Verified Adverse Reaction, Mild, N/V, 07/02/18) Home Medications Duloxetine HCl 60 Mg Capsule.dr, 60 MG PO HS, (Reported) Duloxetine HCl 30 Mg Capsule.dr, 30 MG PO HS, (Reported) Lactobacillus Combo No.10 1 Each Capsule, 1 EACH PO DAILY, (Reported) Pantoprazole Sodium 40 Mg Tablet.dr, 40 MG PO DAILY, (Reported) Patient Home Medication List Home Medication List Reviewed: Yes Past Bfospii-Upxvgh-Kfwhyw Hx Patient Social History Smoking Status: Former Smoker Former Smoker, Quit: Nov 27, 2013 Type Used: Cigars 2nd Hand Smoke Exposure: No Recent Hopitalizations: No Alcohol Use?: No Have you traveled recently?: No Immunizations Up To Date Tetanus Booster (TDap): Unknown PED Vaccines UTD: Yes Date of Influenza Vaccine: Nov 06, 2018 Seasonal Allergies Seasonal Allergies: No Surgeries History of Surgeries: Yes Surgeries: Abdominal, Adenoidectomy, Appendectomy, Bowel Surgery, Ear Surgery, Gallbladder, Nephrectomy, Tonsillectomy Respiratory History of Respiratory Disorde: No Cardiovascular History of Cardiac Disorders: No Neurological History of Neurological Disord: No Reproductive System Hx Reproductive Disorders: Yes (NICHOLS'S SYNDROME) Sexually Transmitted Disease: No HIV/AIDS: No Genitourinary History of Genitourinary Disor: Yes (S/P RIGHT NEPHRECTOMY FOR NON-FUNCTIONING KIDNEY) Genitourinary Disorders: Kidney Infection, Bladder Infection, Kidney Stones, Polycystic Kidney Disease Gastrointestinal History of Gastrointestinal Di: Yes (HERNIA REPAIR, HEPATITIS A; BOWEL RESECTION FOR CARCINOID TUMOR) Gastrointestinal Disorders: Abdominal Hernia, Colitis, Obstructive Bowel, Diverticulosis, Hemorrhoids, Hepatitis, Gall Bladder Disease, Irritable Bowel Musculoskeletal History of Musculoskeletal Dis: Yes Musculoskeletal Disorders: Arthritis Endocrine History of Endocrine Disorders: Yes (NICHOLS'S SYNDROME) HEENT History of HEENT Disorders: Yes HEENT Disorders: Chronic Ear Infection, Tonsilitis Hearing Impairment: Hard of Hearing Cancer History of Cancer: Yes (CARCINOID TUMOR--S/P RESECTION) Cancer: Colon Psychosocial History of Psychiatric Problem: Yes Behavioral Health Disorders: Anxiety, Depression Integumentary History of Skin or Integumenta: No Blood Transfusions History of Blood Disorders: No Adverse Reaction to a Blood Tr: No Reviewed Nursing Assessment Reviewed/Agree w Nursing PMH: Yes Family Medical History Significant Family History: Cancer, Hypertension Family Medial History: SKIN CANCER 19 FATHER Review of Systems Constitutional: No chills, No diaphoresis EENTM: No blurred vision, No double vision Respiratory: No dyspnea on exertion, No short of breath Gastrointestinal: abdominal pain, nausea, vomiting Genitourinary: No decreased output, No discharge Musculoskeletal: No back pain, No joint pain Skin: No change in color, No change in hair/nails Psychiatric/Neurological: Denies Anxiety, Denies Depressed, Denies Emotional Problems All Other Systems Reviewed Negative Unless Noted: Yes (Negative excepted noted.) Physical Exam Vital Signs Vital Signs - First Documented 08/30/20 08/30/20 03:14 08:20 Temp 36.9 Pulse 91 Resp 18 B/P (MAP) 151/89 (109) Pulse Ox 98 O2 Delivery Room Air O2 Flow Rate 1.00 Capillary Refill : Less Than 3 Seconds Height, Weight, BMI Height: 4'7.00" Weight: 109lbs. 1.0oz. 49.385553vn; 27.87 BMI Method:Stated General Appearance: No Apparent Distress, Anxious HEENT: PERRL/EOMI Neck: Non Tender, Supple Respiratory: Chest Non Tender, No Accessory Muscle Use, No Respiratory Distress Cardiovascular: Regular Rate, Rhythm, No JVD Gastrointestinal: Distended, Tenderness (Periumbilical, noted incisional hernia) Rectal: Deferred Back: No CVA Tenderness, No Vertebral Tenderness Extremity: Non Tender, No Calf Tenderness Neurologic/Psychiatric: Alert, Oriented x3, No Motor/Sensory Deficits, Normal Mood/Affect, sas analyst II-XII Norm as Tested Skin: Normal Color, Warm/Dry Lymphatic: No Adenopathy Data Review Labs Laboratory Tests 08/30/20 03:12: Urine Color YELLOW, Urine Clarity CLEAR, Urine pH 6.0, Urine Specific [place] 1.025H, Urine Protein NEGATIVE, Urine Glucose (UA) NEGATIVE, Urine Ketones NEGATIVE, Urine Nitrite NEGATIVE, Urine Bilirubin NEGATIVE, Urine Urobilinogen 0.2, Urine Leukocyte Esterase TRACEH, Urine RBC (Auto) NEGATIVE, Urine RBC NONE, Urine WBC RARE, Urine Squamous Epithelial Cells 2-5, Urine Crystals NONE, Urine Bacteria NEGATIVE, Urine Casts NONE, Urine Mucus SMALLH, Urine Culture Indicated NO 08/30/20 03:40: White Blood Count 11.6H, Red Blood Count 4.80, Hemoglobin 14.1, Hematocrit 42, Mean Corpuscular Volume 87, Mean Corpuscular Hemoglobin 29, Mean Corpuscular Hemoglobin Concent 34, Red Cell Distribution Width 11.8, Platelet Count 352, Mean Platelet Volume 9.0, Immature Granulocyte % (Auto) 1, Neutrophils (%) (Auto) 88H, Lymphocytes (%) (Auto) 6L, Monocytes (%) (Auto) 4, Eosinophils (%) (Auto) 0, Basophils (%) (Auto) 0, Neutrophils # (Auto) 10.3H, Lymphocytes # (Auto) 0.7L, Monocytes # (Auto) 0.5, Eosinophils # (Auto) 0.0, Basophils # (Auto) 0.0, Immature Granulocyte # (Auto) 0.1, Erythrocyte Sedimentation Rate 19, Sodium Level 144, Potassium Level 4.0, Chloride Level 106, Carbon Dioxide Level 26, Anion Gap 12, Blood Urea Nitrogen 12, Creatinine 0.78, Estimat Glomerular Filtration Rate 79, BUN/Creatinine Ratio 15, Glucose Level 130H, Calcium Level 9.1, Corrected Calcium 9.3, Total Bilirubin 0.4, Aspartate Amino Transf (AST/SGOT) 15, Alanine Aminotransferase (ALT/SGPT) 30, Alkaline Phosphatase 139H, C-Reactive Protein High Sensitivity 0.18, Total Protein 6.8, Albumin 3.8, Amylase Level 145H, Lipase 34 Assessment/Plan Assessment/Plan Admission Diagonsis small bowel obstruction periumbilical abdominal pain incisional hernia nausea and vomiting history of carcinoid Admission Status: Inpatient Order (span 2 midnights) Reason for Inpatient Admission: Patient will need further imaging, medicinal interventions and may require surgical intervention which would require 2 or more midnights Assessment/Plan small bowel obstruction periumbilical abdominal pain incisional hernia nausea and vomiting history of carcinoid NPO NG tube to liws pain control small bowel follow through in am. Dr. Leal consulted. SARHA PEREZ DO Aug 30, 2020 15:18
[2020-08-30 16:00] VITALS: BP 143/83
[2020-08-30] MEDS: ONDANSETRON 4 MG/2 ML (SDV) Z0FRAN IV PRN (18:38)
[2020-08-30 20:00] VITALS: BP 144/79
[2020-08-30] MEDS: fentaNYL INJ 100 MCG/2 ML AMP IV PRN (21:37)
[2020-08-30 23:30] VITALS: BP 155/87
[2020-08-31] VITALS: BP 155/87
[2020-08-31 04:00] VITALS: BP 156/83
[2020-08-31 05:22] LABS: BASOPHILS % (AUTO) 0 % (0-10); EOSINOPHILS % (AUTO) 0 % (0-10); HEMATOCRIT 38 % (35-52); HEMOGLOBIN 12.2 g/dL (11.5-16.0); LYMPHOCYTES # (AUTO) 0.9 10^3/uL (1.0-4.0); LYMPHOCYTES % (AUTO) 10 % (12-44); MEAN CORPUSCULAR HEMOGLOBIN 29 pg (25-34); MEAN CORPUSCULAR HGB CONC 32 g/dL (32-36); MEAN CORPUSCULAR VOLUME 91 fL (80-99); MEAN PLATELET VOLUME 9.2 fL (9.0-12.2); MONOCYTES # (AUTO) 0.7 10^3/uL (0.0-1.0); MONOCYTES % (AUTO) 8 % (0-12); NEUTROPHILS % (AUTO) 81 % (42-75); PLATELET COUNT 262 10^3/uL (130-400); WHITE BLOOD COUNT 8.7 10^3/uL (4.3-11.0)
[2020-08-31 05:43] LABS: POTASSIUM 4.3 MMOL/L (3.6-5.0)
[2020-08-31 05:48] LABS: CREATININE SERUM 0.68 MG/DL (0.60-1.30)
[2020-08-31] MEDS: D5 1/2 NS W/KCL 20 MEQ/L 1,000 ML IV SCH ×4 (06:17→16:54)
--- NOTE | 2020-08-31 06:18 | Progress Note - Hospitalist ---
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 Dr. Perez has admitted to his service and consulted medicine. NG tube in place. Abdominal pain much improved. I have checked meds and labs. Subjective/Events-last exam Pt doing okay Had two bowel movements Clamping the NG tube Will DC telemetry Small bowel follow through looked good Overall has no new issues Review of Systems General: Fatigue Gastrointestinal: Abdominal Pain Objective Exam Vital Signs Vital Signs Date Time Temp Pulse Resp B/P (MAP) Pulse Ox O2 Delivery O2 Flow Rate FiO2 09/01/20 00:22 36.9 91 20 160/89 (112) 95 Room Air 08/31/20 15:34 1.00 Capillary Refill : Less Than 3 Seconds General Appearance: No Apparent Distress, WD/WN, Chronically ill Respiratory: Lungs Clear, Normal Breath Sounds Cardiovascular: Regular Rate, Rhythm Neurologic/Psychiatric: Alert, Oriented x3 Results/Procedures Lab Laboratory Tests 08/31/20 05:10 Patient resulted labs reviewed. Assessment/Plan Assessment and Plan Assess & Plan/Chief Complaint Assessment: Small bowel obstruction History of bowel obstructions and multiple bowel surgeries Pelletier syndrome Polycystic kidney disease History of carcinoid syndrome Plan: NG tube Pain control IV fluids 08/31/20: Supportive care Monitor closely Diagnosis/Problems Diagnosis/Problems (1) Small bowel obstruction Status: Acute (2) Pelletier's syndrome Status: Acute (3) Hx of malignant carcinoid tumor Status: Acute (4) Abdominal pain Status: Acute DOUGLAS ANN DO Aug 31, 2020 06:18
[2020-08-31 08:00] VITALS: BP 151/92
[2020-08-31] MEDS: ONDANSETRON 4 MG/2 ML (SDV) Z0FRAN IV PRN (09:47)
[2020-08-31] MEDS: ENOXAPARIN 40 MG/0.4 ML (LOVENOX) SYR SC SCH (09:47)
[2020-08-31] MEDS ORDERED: DIATRIZOATE MEGLUM/SODIUM 37% 120 ML (GASTROGRAFIN) NG ONE (10:00)
[2020-08-31] MEDS ORDERED: ASCO-262 PO (10:21)
[2020-08-31] MEDS ORDERED: CHOL10007 PO (10:21)
[2020-08-31 12:00] VITALS: BP 155/91
[2020-08-31 15:34] VITALS: BP 152/89
--- NOTE | 2020-08-31 16:21 | Diagnostic Imaging Report ---
INDICATION: Abdominal pain. Small bowel study performed with injection of 120 mL of Gastrografin through the indwelling NG tube. The stomach fills and empties promptly. Duodenal bulb and sweep are normal. Some reflux was noted. Small bowel shows some occasional areas of full thickening but no evidence of obstruction. Contrast reaches the right colon within 45 minutes. Contrast is seen throughout the length of the colon. IMPRESSION: There are some scattered areas of thickening of the folds of the small bowel which may represent enteritis. There is no focal stricture or obstruction. Contrast reaches the right colon within 45 minutes. Dictated by: Dictated on workstation # [id number]
--- NOTE | 2020-08-31 17:26 | Progress Note - Surgery ---
Subjective Time Seen by a Provider: 16:14 Subjective/Events-last exam Pt seen and examined, she looks tired and has been crying. Pt states she is just scared that her Carcinoid has come back and she can't stand the NGT. Pt states she had 2 BMs after she was given contrast for SBFT. Pt denies N/V, but she is spitting up and hoarse because of NGT. She is asking if NGT can be removed. Review of Systems General: No Night Sweats; Fatigue HEENT: Sinus Congestion (secondary to NGT), Post Nasal Drip Pulmonary: No Dyspnea, No Cough Cardiovascular: No: Chest Pain, Palpitations Gastrointestinal: Nausea, Abdominal Pain (very minimal today compared to yesterday); No: Vomiting Objective Exam Vital Signs Date Time Temp Pulse Resp B/P (MAP) Pulse Ox O2 Delivery O2 Flow Rate FiO2 08/31/20 15:34 36.5 88 18 152/89 (110) 98 Nasal Cannula 1.00 08/31/20 15:22 Nasal Cannula 1.00 08/31/20 12:00 36.4 90 18 155/91 (112) 96 Nasal Cannula 1.00 08/31/20 09:00 Room Air 08/31/20 08:00 36.6 91 18 151/92 (111) 96 Nasal Cannula 1.00 08/31/20 07:00 83 08/31/20 04:00 36.7 90 18 156/83 (107) 96 Nasal Cannula 1.00 08/31/20 04:00 36.7 90 18 156/83 (107) 96 Nasal Cannula 1.00 08/31/20 01:00 82 08/31/20 00:00 36.3 89 18 155/87 (109) 96 Nasal Cannula 1.00 08/30/20 23:30 36.3 89 18 155/87 (109) 96 Nasal Cannula 1.00 08/30/20 21:00 Room Air 08/30/20 20:00 36.9 88 18 144/79 (100) 98 Nasal Cannula 1.00 08/30/20 19:00 86 I & O 08/31/20 06:59 Intake Total 0 ml Output Total 2500 ml Balance -2500 ml Capillary Refill : Less Than 3 Seconds General Appearance: WD/WN, Chronically ill, Mild Distress (eyes are red and she looks scared) HEENT: PERRL/EOMI, Pharynx Normal Respiratory: Chest Non Tender, Lungs Clear, Normal Breath Sounds, No Accessory Muscle Use, No Respiratory Distress Cardiovascular: Regular Rate, Rhythm, No Murmur Gastrointestinal: abnormal bowel sounds (TYMPANIC), distended (slightly), guarding (voluntary and minimal), tenderness (mostly upper and in old incision), hernia (incarcerated ventral hernia) Extremity: Normal Capillary Refill, No Calf Tenderness, No Pedal Edema Neurologic/Psychiatric: Alert, Oriented x3, Depressed Affect Skin: Normal Color, Warm/Dry Results Lab Laboratory Tests 08/31/20 05:10: White Blood Count 8.7, Red Blood Count 4.16, Hemoglobin 12.2, Hematocrit 38, Mean Corpuscular Volume 91, Mean Corpuscular Hemoglobin 29, Mean Corpuscular Hemoglobin Concent 32, Red Cell Distribution Width 12.3, Platelet Count 262, Mean Platelet Volume 9.2, Immature Granulocyte % (Auto) 1, Neutrophils (%) (Auto) 81H, Lymphocytes (%) (Auto) 10L, Monocytes (%) (Auto) 8, Eosinophils (%) (Auto) 0, Basophils (%) (Auto) 0, Neutrophils # (Auto) 7.0, Lymphocytes # (Auto) 0.9L, Monocytes # (Auto) 0.7, Eosinophils # (Auto) 0.0, Basophils # (Auto) 0.0, Immature Granulocyte # (Auto) 0.1, Sodium Level 146H, Potassium Level 4.3, Chloride Level 109H, Carbon Dioxide Level 26, Anion Gap 11, Blood Urea Nitrogen 5L, Creatinine 0.68, Estimat Glomerular Filtration Rate 92, BUN/Creatinine Ratio 7, Glucose Level 124H, Calcium Level 8.0L Assessment/Plan Assessment/Plan Assessment/Plan Small bowel obstruction - resolved Incarcerated incisional hernia Nausea and vomiting - improved History of carcinoid Start clears and clamp NG tube; will hook back up at 20:00 and see how much comes out, if less than 200ml or 20% of intake than will DC NGT. D/C zendejas and encourage pt to ambulate and use IS. Pain control and anti-emetics as needed. I went over the CT myself and believe the PSBO is most likely due to the incarcerated incisional hernia. I talked with pt about surgery and would plan to get her better, send her home and then repair as an outpt. All questions answered to her satisfaction. NORBERT COE DO Aug 31, 2020 17:26
[2020-08-31 19:44] VITALS: BP 156/93
[2020-08-31] MEDS: fentaNYL INJ 100 MCG/2 ML AMP IV PRN (21:33)
[2020-09-01 00:22] VITALS: BP 160/89
[2020-09-01 04:00] VITALS: BP 142/82
--- NOTE | 2020-09-01 05:29 | Progress Note - Hospitalist ---
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 Dr. Perez has admitted to his service and consulted medicine. NG tube in place. Abdominal pain much improved. I have checked meds and labs. Subjective/Events-last exam Pt doing pretty well Clear liquid diet tolerated No pain No nausea Will restart her depression medication Review of Systems General: Fatigue, Malaise Pulmonary: Dyspnea Objective Exam Vital Signs Vital Signs Date Time Temp Pulse Resp B/P (MAP) Pulse Ox O2 Delivery O2 Flow Rate FiO2 09/01/20 14:49 36.7 97 18 148/83 97 Room Air 08/31/20 15:34 1.00 Capillary Refill : Less Than 3 Seconds General Appearance: No Apparent Distress, WD/WN, Chronically ill Respiratory: Lungs Clear, Normal Breath Sounds Cardiovascular: Regular Rate, Rhythm Neurologic/Psychiatric: Alert, Oriented x3 Results/Procedures Lab Laboratory Tests 09/01/20 05:32 Patient resulted labs reviewed. Assessment/Plan Assessment and Plan Assess & Plan/Chief Complaint Assessment: Small bowel obstruction History of bowel obstructions and multiple bowel surgeries Pelletier syndrome Polycystic kidney disease History of carcinoid syndrome Plan: NG tube Pain control IV fluids 08/31/20: Supportive care Monitor closely 09/01/2020: Discharge planned Diagnosis/Problems Diagnosis/Problems (1) Small bowel obstruction Status: Acute (2) Pelletier's syndrome Status: Acute (3) Hx of malignant carcinoid tumor Status: Acute (4) Abdominal pain Status: Acute DOUGLAS ANN DO Sep 01, 2020 05:29
[2020-09-01 05:45] LABS: BASOPHILS % (AUTO) 0 % (0-10); EOSINOPHILS % (AUTO) 0 % (0-10); HEMATOCRIT 38 % (35-52); HEMOGLOBIN 12.5 g/dL (11.5-16.0); LYMPHOCYTES # (AUTO) 0.9 10^3/uL (1.0-4.0); LYMPHOCYTES % (AUTO) 11 % (12-44); MEAN CORPUSCULAR HEMOGLOBIN 30 pg (25-34); MEAN CORPUSCULAR HGB CONC 33 g/dL (32-36); MEAN CORPUSCULAR VOLUME 90 fL (80-99); MEAN PLATELET VOLUME 9.2 fL (9.0-12.2); MONOCYTES # (AUTO) 0.8 10^3/uL (0.0-1.0); MONOCYTES % (AUTO) 9 % (0-12); NEUTROPHILS % (AUTO) 80 % (42-75); PLATELET COUNT 260 10^3/uL (130-400); WHITE BLOOD COUNT 8.8 10^3/uL (4.3-11.0)
[2020-09-01 05:56] LABS: ALBUMIN 3.4 GM/DL (3.2-4.5); POTASSIUM 4.2 MMOL/L (3.6-5.0)
[2020-09-01 05:58] LABS: CALCIUM 8.7 MG/DL (8.5-10.1)
[2020-09-01 05:59] LABS: TOTAL PROTEIN 6.2 GM/DL (6.4-8.2)
[2020-09-01 06:02] LABS: CREATININE SERUM 0.65 MG/DL (0.60-1.30)
[2020-09-01 08:00] VITALS: BP 148/83
[2020-09-01] MEDS: ENOXAPARIN 40 MG/0.4 ML (LOVENOX) SYR SC SCH (08:26)
--- NOTE | 2020-09-01 13:06 | Progress Note - Surgery ---
Subjective Time Seen by a Provider: 11:46 Subjective/Events-last exam Pt seen and examined, she had another BM today and is tolerating clears. The NGT was d/c'd last night. Pt denies N/V Review of Systems General: No Chills, No Night Sweats; Fatigue Pulmonary: No Dyspnea, No Cough Cardiovascular: No: Chest Pain, Palpitations Gastrointestinal: No: Nausea, Vomiting, Abdominal Pain Objective Exam Vital Signs Date Time Temp Pulse Resp B/P (MAP) Pulse Ox O2 Delivery O2 Flow Rate FiO2 09/01/20 09:40 Room Air 09/01/20 08:00 36.7 97 18 148/83 (104) 97 Room Air 09/01/20 04:00 36.8 95 18 142/82 (102) 93 Room Air 09/01/20 00:22 36.9 91 20 160/89 (112) 95 Room Air 08/31/20 21:00 Room Air 08/31/20 19:44 37.1 89 20 156/93 (114) 98 Room Air 08/31/20 15:34 36.5 88 18 152/89 (110) 98 Nasal Cannula 1.00 08/31/20 15:22 Nasal Cannula 1.00 I & O 09/01/20 07:00 Intake Total 1930 ml Output Total 1400 ml Balance 530 ml Capillary Refill : Less Than 3 Seconds General Appearance: WD/WN, Anxious HEENT: PERRL/EOMI Respiratory: Lungs Clear, Normal Breath Sounds, No Accessory Muscle Use, No Respiratory Distress Cardiovascular: Regular Rate, Rhythm, No Murmur Gastrointestinal: soft, tenderness (mostly upper and in old incision with deep palpation), hernia (incarcerated ventral hernia) Extremity: Normal Capillary Refill, No Calf Tenderness, No Pedal Edema Neurologic/Psychiatric: Alert, Oriented x3 Skin: Normal Color, Warm/Dry Results Lab Laboratory Tests 09/01/20 05:32: White Blood Count 8.8, Red Blood Count 4.19, Hemoglobin 12.5, Hematocrit 38, Mean Corpuscular Volume 90, Mean Corpuscular Hemoglobin 30, Mean Corpuscular Hemoglobin Concent 33, Red Cell Distribution Width 12.3, Platelet Count 260, Mean Platelet Volume 9.2, Immature Granulocyte % (Auto) 1, Neutrophils (%) (Auto) 80H, Lymphocytes (%) (Auto) 11L, Monocytes (%) (Auto) 9, Eosinophils (%) (Auto) 0, Basophils (%) (Auto) 0, Neutrophils # (Auto) 7.0, Lymphocytes # (Auto) 0.9L, Monocytes # (Auto) 0.8, Eosinophils # (Auto) 0.0, Basophils # (Auto) 0.0, Immature Granulocyte # (Auto) 0.1, Sodium Level 142, Potassium Level 4.2, Chloride Level 105, Carbon Dioxide Level 25, Anion Gap 12, Blood Urea Nitrogen 6L, Creatinine 0.65, Estimat Glomerular Filtration Rate 97, BUN/Creatinine Ratio 9, Glucose Level 96, Calcium Level 8.7, Corrected Calcium 9.2, Total Bilirubin 1.0, Aspartate Amino Transf (AST/SGOT) 39H, Alanine Aminotransferase (ALT/SGPT) 142H, Alkaline Phosphatase 202H, Total Protein 6.2L, Albumin 3.4 Assessment/Plan Assessment/Plan Assessment/Plan Small bowel obstruction - resolved Incarcerated incisional hernia Nausea and vomiting - improved History of carcinoid Start soft diet and if she tolerates will send her home after lunch. I told her we would talk about surgery when she sees me in office in a week. All questions answered to her satisfaction. NORBERT COE DO Sep 01, 2020 13:05
--- NOTE | 2020-09-01 13:25 | Discharge Inst-Surgical ---
Discharge Inst-Surgical Depart Medication/Instructions New, Converted or Re-Newed RX: Other (take home meds) Patient Instructions Follow up Appt: Make appointment for 1 week. [phone] Instructions: No lifting greater than 20 pounds. No strenuous activity. May shower in 24 hours, no tub bath or soaking. Use incentive spirometer at home as directed. No Smoking Symptoms to Report: Appetite Changes, Extremity Discoloration, Numbness/Tingling, Swelling Increased, Bleeding Excessive, Eyesight Changes, Pain Increased, Urine Color Change, Constipation(Persistent), Fever over 101 degree F, Pain/Pressure in chest, Urinating Difficulty, Cough Up/Vomit Blood, Heart Beat Irreg/Pounding, Pain/Pressure in jaw, Cramps in feet or legs, Lightheadedness, Pain/Pressure in shoulder, Diarrhea(Persistent), Memory Changes Suddenly, Questions/Concerns, Weight gain consecutive days, Dizziness/Fainting, Nausea/Vomiting, Shortness of Breath, Weight gain over 2 pounds If questions or concerns contact your physician Or seek help at emergency department. Activity Activity as Tolerated: Yes Driving Instructions: You May Drive Diet Discharge Diet: No Restrictions Diet After 24 Hours: Clear Liquid if Nauseous If Any Problems/Questions/Issu: Contact Your Physician, Go to Emergency Room Skin/Wound Care Infection Signs and Symptoms: Increased Swelling, Temperature Above 101 F Bathing Instructions: NORBERT Roberts DO Sep 01, 2020 13:25
[2020-09-01 14:49] VITALS: BP 148/83
== END 2020-09-01 14:55 | disposition home or self-care (01) | DRG 394 ==
LOC: EDUNIT# 02:49 → ER 02:51 → 4TH 06:10
PROVIDERS: ADMIT Surgery; ATTEND Surgery
PROC: 0D9670Z Drainage of Stomach with Drainage Device, Via Natural or Artificial Opening (ICD-10-PCS; principal; 2020-08-30)
DX: K43.0 Incisional hernia with obstruction, without gangrene (principal); C78.00 Secondary malignant neoplasm of unspecified lung; Q61.3 Polycystic kidney, unspecified; Q96.9 Turner's syndrome, unspecified; Z87.891 Personal history of nicotine dependence; Z90.5 Acquired absence of kidney; K57.90 Diverticulosis of intestine, part unspecified, without perforation or abscess without bleeding; M19.90 Unspecified osteoarthritis, unspecified site; F41.9 Anxiety disorder, unspecified; F32.9 Major depressive disorder, single episode, unspecified; Z90.49 Acquired absence of other specified parts of digestive tract; Z85.038 Personal history of other malignant neoplasm of large intestine; K58.9 Irritable bowel syndrome, unspecified
CPT/HCPCS: 36415; 74022; 74177; 74250; 80048; 80053; 81000; 82150; 83690; 84703; 85025; 85652; 86141; 96361; 96374; 96375; 96376

== ENCOUNTER 2020-09-16 05:39 | Outpatient (CLI) | payer OTHER ==
[~2020-09-16] VITALS: Ht 139.7 cm; Wt 55.2 kg
[~2020-09-16 05:39] MED LIST changes: +ASCO-262 PO; +CHOL10007 PO
== END 2020-09-16 10:59 | disposition home or self-care (01) ==
LOC: PREOP 05:39
PROVIDERS: ATTEND Surgery
DX: Z01.818 Encounter for other preprocedural examination (principal)

== ENCOUNTER 2020-09-23 07:54 | Day surgery (SDC) | payer OTHER ==
[2020-09-23] VITALS (13 sets, daily range): BP systolic 86–145; BP diastolic 53–85
[~2020-09-23] VITALS: Ht 139.7 cm; Wt 55.2 kg
--- NOTE | 2020-09-23 08:12 | Progress Note-Pre Operative ---
Pre-Operative Progress Note H&P Reviewed The H&P was reviewed, patient examined and no changes noted. Time Seen by Provider: 08:06 Date H&P Reviewed: Sep 23, 2020 Time H&P Reviewed: 08:06 Pre-Operative Diagnosis: Incarcerated incisional/ventral hernia NORBERT COE DO Sep 23, 2020 08:12
[2020-09-23] MEDS ORDERED: ONDANSETRON 4 MG/2 ML (SDV) Z0FRAN ONE (08:36)
[2020-09-23] MEDS ORDERED: LIDOCAINE PF 2% 5 ML (XYLOCAINE) VIAL ONE (08:36)
[2020-09-23] MEDS ORDERED: SEVOFLURANE (ULTANE) 15 ML INHAL SOLN ONE ×2 (08:36→12:15)
[2020-09-23] MEDS ORDERED: fentaNYL INJ 100 MCG/2 ML AMP ONE (08:36)
[2020-09-23] MEDS ORDERED: proPOfol 200 MG/20 ML (DIPRIVAN) VIAL IV ONE (08:36)
[2020-09-23] MEDS ORDERED: MIDAZOLAM 2 MG/2 ML (VERSED) VIAL ONE ×2 (08:37→08:54)
[2020-09-23] MEDS: LACTATED RINGERS 1,000 ML IV PRN ×2 (08:42→11:40)
[2020-09-23] MEDS ORDERED: LIDOCAINE/EPI 1%-1:100,000 (XYLOCAINE) 20ML ONE (08:44)
[2020-09-23] MEDS ORDERED: ceFAZolin 2 GM IV Premixed 50 ML ONE (08:57)
[2020-09-23] MEDS ORDERED: MIDAZOLAM 2 MG/2 ML (VERSED) VIAL IV ONE (09:00)
[2020-09-23] MEDS ORDERED: ceFAZolin 2 GM IV Premixed 50 ML IV ONE (09:15)
[2020-09-23] MEDS ORDERED: ROCURONIUM 10 MG/ML 5 ML SYRINGE IV ONE (10:25)
[2020-09-23] MEDS ORDERED: NEOSTIGMINE 3 MG/3 ML VIAL ONE (10:41)
[2020-09-23] MEDS ORDERED: GLYCOPYRROLATE 0.2 MG/ML (ROBINUL) 2 ML VIAL ONE (10:41)
[2020-09-23] MEDS ORDERED: PHENYLEPHRINE 100 MCG/ML 10 ML (ANESTHESIA) SYR ONE (10:41)
--- NOTE | 2020-09-23 12:24 | Progress Note-Post Operative ---
Post-Operative Progess Note Surgeon (s)/Singing Teacher (s) Surgeon NORBERT COE DO Singing Teacher: Ana Pre-Operative Diagnosis Incarcerated incisional/ventral hernia Post-Operative Diagnosis same Procedure & Operative Findings Date of Procedure 09/23/20 Procedure Performed/Findings Laparoscopic Incisional/Ventral Herniarraphy with mesh placement. COMPLICATIONS: None. INDICATIONS: The patient is a 49, female with an incarcerated ventral/incisional hernia, whi ch has recently caused a partial small bowel obstruction and increasing discomfort. The patient was explained the risk and benefits of the procedure and wished to proceed with the procedure. Consent was signed on the chart. DESCRIPTION OF PROCEDURE: The patient was taken into the operating suite, prepped and draped in sterile fashion. Surgical pause was performed. Local anesthetic was infiltrated in left upper quadrant. A 15 blade scalpel was used to make a small skin incision. Cautery was used to dissect down to the fascia, which was then scored and divided the muscle, went through the posterior sheath and a balloon trocar was inserted into the abdomen. The abdomen was then insufflated. Dense adhesions were encountered. Able to get around and visualize the right upper quadrant and a 5 mm trocar was placed with the GLAMSQUAD system done under direct visualization. Then started taking adhesions down in right upper quadrant and working in left upper quadrant and then down left side. Next another 5mm port was placed in the left lower quadrant and continued to take adhesions down. Finally, a fourth 5 mm trocar was placed in right lower quadrant. Continued taking down the adhesions until we had pulled all the hernia contents (fat and intestine) out of the hernia defect. The defect was large and looked like [place] cheese. Elected to place a large 15.2 x 20.3 cm Echo Ventralight mesh to entirely cover the entire area with 5cm overlap in all directions. The mesh was then inserted in the abdomen grabbed through a stab incision. The balloon was inflated on the mesh. Circumferential tacks were placed with a SecureStrap Tacker, 2 tackers needed. The balloon was then removed and inner crown was created as well. The mesh was tacked with pressure being decreased. The 12 mm fascial defect was then closed using 0 Vicryl. The abdomen was then desufflated,the trocars were removed. The skin was then closed using 4-0 Monocryl in a running subcuticular fashion. The abdomen was washed and dried and Skin Affix was placed over the incisions. The patient tolerated procedure well without any complications. She was taken to recovery room in stable condition. Dr. Perez assisted on this case helping to make incisions, close incisions, identify anatomy, take down adhesion, hold anatomy out of the way and place tacks. Anesthesia Type GET Estimated Blood Loss Estimated blood loss (mL): minimal Specimens/Packing Specimens Removed none NORBERT COE DO Sep 23, 2020 12:24
[2020-09-23] MEDS ORDERED: ACHD5005 PO (12:26)
--- NOTE | 2020-09-23 12:27 | Discharge Inst-Surgical ---
Discharge Inst-Surgical Depart Medication/Instructions New, Converted or Re-Newed RX: Transmitted to Pharmacy Patient Instructions Follow up Appt: Make appointment for 1 week. [phone] Instructions: No lifting greater than 20 pounds. No strenuous activity. May shower in 24 hours, no tub bath or soaking. Use incentive spirometer at home as directed. No Smoking Skin/Wound Care: May remove bandages in am. You need to leave the Dermabond on incision it will fall off on it's own. Symptoms to Report: Appetite Changes, Extremity Discoloration, Numbness/Tingling, Swelling Increased, Bleeding Excessive, Eyesight Changes, Pain Increased, Urine Color Change, Constipation(Persistent), Fever over 101 degree F, Pain/Pressure in chest, Urinating Difficulty, Cough Up/Vomit Blood, Heart Beat Irreg/Pounding, Pain/Pressure in jaw, Cramps in feet or legs, Lightheadedness, Pain/Pressure in shoulder, Diarrhea(Persistent), Memory Changes Suddenly, Questions/Concerns, Weight gain consecutive days, Dizziness/Fainting, Nausea/Vomiting, Shortness of Breath, Weight gain over 2 pounds If questions or concerns contact your physician Or seek help at emergency department. Activity Activity as Tolerated: Yes Activity Instructions: Avoid Stress to Incision Driving Instructions: No Driving/Refer to Dr. Cochran Discharge Diet: No Restrictions Diet After 24 Hours: Clear Liquid if Nauseous If Any Problems/Questions/Issu: Contact Your Physician, Go to Emergency Room Skin/Wound Care Infection Signs and Symptoms: Increased Redness, Foul Odor of Wound, Increased Drainage, Skin Itchy or Has a Rash, Increased Swelling, Temperature Above 101 F Wound Care Comment: Heating pad to shoulder or neck tonight for pain Bathing Instructions: Shower Stitches/[place]/Dermabond Dis: Dermabond Ice Pack: Ice On and Off Site NORBERT COE DO Sep 23, 2020 12:27
[2020-09-23] MEDS ORDERED: HYDROmorphone 2 MG/ML VIAL (DILAUDID) IV ONE (12:45)
[2020-09-23] MEDS ORDERED: ONDANSETRON 4 MG/2 ML (SDV) Z0FRAN IVP PRN (12:45)
[2020-09-23] MEDS ORDERED: morphine INJ 10 MG/ML 1ML (SYR OR VIAL) IVP ONE (12:45)
[2020-09-23] MEDS ORDERED: morphine INJ 10 MG/ML 1ML (SYR OR VIAL) ONE (13:01)
[2020-09-23] MEDS ORDERED: HYDROcodone/APAP 5 MG/325 MG (LORTAB) TAB ONE (13:40)
[2020-09-23] MEDS ORDERED: HYDROcodone/APAP 5 MG/325 MG (LORTAB) TAB PO ONE (13:45)
--- NOTE | 2020-09-23 14:06 | Anesthesia-General Post-Op ---
General Patient Condition Mental Status/LOC: Same as Preop Cardiovascular: Satisfactory Nausea/Vomiting: Absent Respiratory: Satisfactory Pain: Controlled Complications: Absent Post Op Complications Complications None Follow Up Care/Instructions Patient Instructions None needed. Anesthesia/Patient Condition Patient Condition Patient is doing well, no complaints, stable vital signs, no apparent adverse anesthesia problems. YUVAL MICHEL DO Sep 23, 2020 14:06
== END 2020-09-23 16:55 ==
LOC: SDC 07:54
PROVIDERS: ATTEND Surgery
DX: K43.0 Incisional hernia with obstruction, without gangrene (principal); K21.9 Gastro-esophageal reflux disease without esophagitis; F32.9 Major depressive disorder, single episode, unspecified; Z87.891 Personal history of nicotine dependence; Z79.899 Other long term (current) drug therapy; Z90.49 Acquired absence of other specified parts of digestive tract; Z90.89 Acquired absence of other organs; Z82.49 Family history of ischemic heart disease and other diseases of the circulatory system
CPT/HCPCS: 49655; 84703; 87081; C1781

== ENCOUNTER 2020-10-01 13:18 | Outpatient (RCR) | payer OTHER ==
[2020-09-17 09:58] LABS: BASOPHILS % (AUTO) 0 % (0-10); EOSINOPHILS # (AUTO) 0.1 10^3/uL (0.0-0.3); EOSINOPHILS % (AUTO) 1 % (0-10); HEMATOCRIT 41 % (35-52); HEMOGLOBIN 13.8 g/dL (11.5-16.0); LYMPHOCYTES # (AUTO) 1.2 10^3/uL (1.0-4.0); LYMPHOCYTES % (AUTO) 14 % (12-44); MEAN CORPUSCULAR HEMOGLOBIN 30 pg (25-34); MEAN CORPUSCULAR HGB CONC 34 g/dL (32-36); MEAN CORPUSCULAR VOLUME 88 fL (80-99); MEAN PLATELET VOLUME 9.5 fL (9.0-12.2); MONOCYTES # (AUTO) 0.6 10^3/uL (0.0-1.0); MONOCYTES % (AUTO) 7 % (0-12); NEUTROPHILS # (AUTO) 6.8 10^3/uL (1.8-7.8); NEUTROPHILS % (AUTO) 77 % (42-75); PLATELET COUNT 236 10^3/uL (130-400); WHITE BLOOD COUNT 8.8 10^3/uL (4.3-11.0)
[2020-09-17 10:24] LABS: ALBUMIN 3.9 GM/DL (3.2-4.5); BILIRUBIN,TOTAL 0.5 MG/DL (0.1-1.0); CALCIUM 9.8 MG/DL (8.5-10.1); CREATININE SERUM 0.79 MG/DL (0.60-1.30); POTASSIUM 4.2 MMOL/L (3.6-5.0); TOTAL PROTEIN 7.2 GM/DL (6.4-8.2)
== END 2020-12-16 | disposition home or self-care (01) ==
LOC: ONC 13:18
PROVIDERS: ATTEND Internal Medicine Hematology & Oncology
DX: D3A.029 Benign carcinoid tumor of the large intestine, unspecified portion (principal); I10 Essential (primary) hypertension; R09.89 Other specified symptoms and signs involving the circulatory and respiratory systems; Q96.9 Turner's syndrome, unspecified; F17.210 Nicotine dependence, cigarettes, uncomplicated
CPT/HCPCS: 80053; 83497; 85025; 86316; 99213

== ENCOUNTER 2021-06-01 14:00 | Outpatient (RCR) | payer OTHER ==
[2021-06-01 14:12] LABS: BASOPHILS % (AUTO) 0 % (0-10); EOSINOPHILS # (AUTO) 0.1 10^3/uL (0.0-0.3); EOSINOPHILS % (AUTO) 1 % (0-10); HEMATOCRIT 41 % (35-52); LYMPHOCYTES # (AUTO) 1.1 10^3/uL (1.0-4.0); LYMPHOCYTES % (AUTO) 17 % (12-44); MEAN CORPUSCULAR HEMOGLOBIN 30 pg (25-34); MEAN CORPUSCULAR HGB CONC 34 g/dL (32-36); MEAN CORPUSCULAR VOLUME 89 fL (80-99); MEAN PLATELET VOLUME 9.2 fL (9.0-12.2); MONOCYTES # (AUTO) 0.4 10^3/uL (0.0-1.0); MONOCYTES % (AUTO) 6 % (0-12); NEUTROPHILS # (AUTO) 5.1 10^3/uL (1.8-7.8); NEUTROPHILS % (AUTO) 76 % (42-75); PLATELET COUNT 190 10^3/uL (130-400); WHITE BLOOD COUNT 6.7 10^3/uL (4.3-11.0)
[2021-06-01 14:31] LABS: ALBUMIN 4.2 GM/DL (3.2-4.5); BILIRUBIN,TOTAL 0.4 MG/DL (0.1-1.0); CALCIUM 9.6 MG/DL (8.5-10.1); CREATININE SERUM 0.83 MG/DL (0.60-1.30); POTASSIUM 4.3 MMOL/L (3.6-5.0)
== END 2021-06-05 | disposition home or self-care (01) ==
LOC: ONC 14:00
PROVIDERS: ATTEND Internal Medicine Hematology & Oncology
DX: D37.2 Neoplasm of uncertain behavior of small intestine (principal)
CPT/HCPCS: 36415; 80053; 85025; 86316

== ENCOUNTER → 2021-06-24 | Outpatient (CLI) | payer OTHER ==
[~2021-06-24] MED LIST changes: +CATHETER FLUSH 10 ML SYR IV PRN; +IOHEXOL 350 MG/ML 100 ML (OMNIPAQUE 350) VIAL IV ONE; +NS 100 ML (IVPB) BAG IV ONE
--- NOTE | 2021-06-24 10:46 | Diagnostic Imaging Report ---
PROCEDURE: CT chest with contrast, CT abdomen and pelvis with and without contrast. TECHNIQUE: Pre and post intravenous contrast axial imaging of the abdomen and pelvis and post contrast axial imaging of the chest were performed. Auto Exposure Controls were utilized during the CT exam to meet ALARA standards for radiation dose reduction. INDICATION: Neoplasm of the colon COMPARISONS: 08/30/2020 and 12/19/2019 FINDINGS: No significant adenopathy of the chest. No aneurysmal dilatation of the thoracic aorta. The heart is mildly enlarged. No pericardial effusion. No pleural effusion. The trachea is patent. No pneumothorax. A 0.5 cm right middle lobe pulmonary nodule is again identified and not significantly changed since 2018. Therefore, this is felt to be benign. Mild scarring and/or atelectasis also noted within the right middle lobe. Mild scarring within the lingula. The lungs otherwise appear clear. No acute osseous abnormality within the chest. Cholecystectomy. Mild intrahepatic biliary dilatation is again identified, stable from the prior exams. The liver is otherwise unremarkable. The spleen is unremarkable. Right nephrectomy. No abnormal soft tissue mass lesion within the right renal fossa. Abnormal configuration of the left kidney is again identified. Mild left-sided hydronephrosis versus caliectasis is present, though this appears improved from the prior examinations. The urinary bladder is unremarkable. The uterus and adnexal structures are unremarkable for age. Postsurgical changes associated with the bowel within the right abdomen are identified. Interval repair of previously noted midline anterior abdominal wall hernia. No bowel obstruction or pneumatosis. No aneurysmal dilatation of the abdominal aorta. No significant adenopathy, free air, or free fluid within the abdomen or pelvis. Grade 1 anterolisthesis of L5 on S1 secondary to bilateral pars interarticularis defects of L5. Scattered osseous degenerative changes without acute osseous abnormality. IMPRESSION: Postsurgical changes associated with the bowel without evidence of bowel obstruction. No definite residual or recurrent mass lesion. Benign 5 mm right middle lobe pulmonary nodule which is unchanged since 2018. Interval repair of previously noted bowel containing anterior abdominal wall hernia. Additional stable findings, as above. Dictated by: Dictated on workstation # [id number]
== END ==
LOC: RAD 09:45
PROVIDERS: ATTEND Internal Medicine Hematology & Oncology
DX: D37.4 Neoplasm of uncertain behavior of colon (principal); R91.1 Solitary pulmonary nodule; Z98.890 Other specified postprocedural states
CPT/HCPCS: 71260; 74178

== ENCOUNTER 2021-07-01 09:12 | Outpatient (RCR) | payer OTHER ==
[~2021-07-01 09:12] MED LIST changes: -CATHETER FLUSH 10 ML SYR IV PRN; -IOHEXOL 350 MG/ML 100 ML (OMNIPAQUE 350) VIAL IV ONE; -NS 100 ML (IVPB) BAG IV ONE
== END 2021-07-06 | disposition home or self-care (01) ==
LOC: ONC 09:12
PROVIDERS: ATTEND Internal Medicine Hematology & Oncology
DX: C7A.029 Malignant carcinoid tumor of the large intestine, unspecified portion (principal)
CPT/HCPCS: 83497

== ENCOUNTER 2022-07-05 13:54 | Outpatient (RCR) | payer OTHER ==
[2022-07-01 10:36] LABS: BASOPHILS % (AUTO) 0 % (0-10); EOSINOPHILS # (AUTO) 0.1 10^3/uL (0.0-0.3); EOSINOPHILS % (AUTO) 1 % (0-10); HEMATOCRIT 40 % (35-52); HEMOGLOBIN 13.9 g/dL (11.5-16.0); LYMPHOCYTES # (AUTO) 1.3 10^3/uL (1.0-4.0); LYMPHOCYTES % (AUTO) 19 % (12-44); MEAN CORPUSCULAR HEMOGLOBIN 32 pg (25-34); MEAN CORPUSCULAR HGB CONC 35 g/dL (32-36); MEAN CORPUSCULAR VOLUME 90 fL (80-99); MEAN PLATELET VOLUME 9.7 fL (9.0-12.2); MONOCYTES # (AUTO) 0.5 10^3/uL (0.0-1.0); MONOCYTES % (AUTO) 7 % (0-12); NEUTROPHILS # (AUTO) 4.9 10^3/uL (1.8-7.8); NEUTROPHILS % (AUTO) 72 % (42-75); PLATELET COUNT 186 10^3/uL (130-400); WHITE BLOOD COUNT 6.8 10^3/uL (4.3-11.0)
[2022-07-01 11:03] LABS: ALBUMIN 3.9 GM/DL (3.2-4.5); BILIRUBIN,TOTAL 0.6 MG/DL (0.1-1.0); CALCIUM 8.9 MG/DL (8.5-10.1); CREATININE SERUM 0.78 MG/DL (0.60-1.30); TOTAL PROTEIN 6.2 GM/DL (6.4-8.2)
== END 2022-07-06 | disposition home or self-care (01) ==
LOC: ONC 13:54
PROVIDERS: ATTEND Internal Medicine Hematology & Oncology
DX: C7A.029 Malignant carcinoid tumor of the large intestine, unspecified portion (principal); I10 Essential (primary) hypertension
CPT/HCPCS: 80053; 83497; 85025; 86316

== ENCOUNTER 2022-07-07 09:12 | Outpatient (RCR) | payer OTHER | END 2022-08-05 | disposition home or self-care (01) | LOC: ONC 09:12 | PROVIDERS: ATTEND Internal Medicine Hematology & Oncology | DX: C7A.029 Malignant carcinoid tumor of the large intestine, unspecified portion (principal); I10 Essential (primary) hypertension ==

== ENCOUNTER 2022-12-28 05:30 | Outpatient (CLI) | payer OTHER ==
[~2022-12-28] VITALS: Ht 139.7 cm; Wt 54.9 kg
[2022-12-28] MEDS ORDERED: TRAZ-227 PO (13:31)
[2022-12-28] MEDS ORDERED: CELE200C PO (13:31)
== END 2022-12-28 13:48 | disposition home or self-care (01) ==
LOC: PREOP 05:30
PROVIDERS: ATTEND Surgery
DX: Z01.818 Encounter for other preprocedural examination (principal)

== ENCOUNTER 2023-01-04 06:50 | Day surgery (SDC) | payer OTHER ==
[~2023-01-04] VITALS: Ht 139.7 cm; Wt 54.9 kg
[2023-01-04] VITALS (10 sets, daily range): BP systolic 119–154; BP diastolic 73–98
[~2023-01-04 06:50] MED LIST changes: +CELE200C PO; +TRAZ-227 PO
[2023-01-04] MEDS ORDERED: ceFAZolin INJECTION 2,000 MG in NS (IVPB) 50 ML 50 ML IV ONE (07:15)
[2023-01-04] MEDS: LACTATED RINGERS 1,000 ML 1,000 ML IV PRN ×2 (07:21→08:40)
[2023-01-04] MEDS ORDERED: fentaNYL INJECTION 100 MCG/2 ML VIAL ONE (07:36)
[2023-01-04] MEDS ORDERED: LIDOCAINE 2% w/EPI 1:100,000 20 ML VIAL ONE (07:36)
[2023-01-04] MEDS ORDERED: dexAMETHasone INJ 10 MG/ML 1 ML VIAL ONE (07:36)
[2023-01-04] MEDS ORDERED: proPOfol INJECTION 200 MG/20 ML VIAL IV ONE (07:36)
[2023-01-04] MEDS ORDERED: LIDOCAINE PF 2% 5 ML VIAL ONE (07:36)
[2023-01-04] MEDS ORDERED: MIDAZOLAM INJ 2 MG/2 ML VIAL ONE (07:36)
[2023-01-04] MEDS ORDERED: ONDANSETRON INJECTION 4 MG/2 ML (SDV) ONE (07:36)
--- NOTE | 2023-01-04 08:43 | Progress Note-Pre Operative ---
Pre-Operative Progress Note Date of Available H&P: Dec 22, 2022 Date H&P Reviewed: Jan 04, 2023 Time H&P Reviewed: 08:37 History & Physical: H&P Reviewed, Patient Examed, No changes noted Pre-Operative Diagnosis: Basal cell CA, Left neck. Site marked NORBERT COE DO Jan 04, 2023 08:43
[2023-01-04] MEDS ORDERED: ONDANSETRON INJECTION 4 MG/2 ML (SDV) IVP PRN (08:45)
[2023-01-04] MEDS ORDERED: fentaNYL INJECTION 100 MCG/2 ML VIAL IVP ONE (08:45)
[2023-01-04] MEDS ORDERED: PHENYLEPHRINE 100 MCG/ML 10 ML (ANESTHESIA) SYR ONE (08:54)
[2023-01-04] MEDS ORDERED: SEVOFLURANE (ULTANE) 15 ML INHAL SOLN ONE (09:08)
[2023-01-04] MEDS ORDERED: LIDOCAINE 2% w/EPI 1:100,000 20 ML VIAL INJ ONE (09:27)
--- NOTE | 2023-01-04 12:23 | Progress Note-Post Operative ---
Post-Operative Progess Note Surgeon (s)/Provider Contracting Consultant (s) Surgeon NORBERT COE DO Provider Contracting Consultant: none Pre-Operative Diagnosis Basal cell CA, Left neck. Site marked Post-Operative Diagnosis same pending path Procedure & Operative Findings Date of Procedure 01/04/23 Procedure Performed/Findings Excision of basal cell CA, left neck 4.8x1.3cm Anesthesia Type LMA Estimated Blood Loss Estimated blood loss (mL): scant Specimens/Packing Specimens Removed left neck basal cell CA NORBERT COE DO Jan 04, 2023 12:23
[2023-01-04] MEDS ORDERED: ACHD5005 PO (12:24)
--- NOTE | 2023-01-04 12:25 | Discharge Inst-Surgical ---
Discharge Inst-Surgical Depart Medication/Instructions New, Converted or Re-Newed RX: Transmitted to Pharmacy Patient Instructions Follow up Appt: Make appointment for 1 week. [phone] Instructions: No lifting greater than 20 pounds. No strenuous activity. May shower in 24 hours, no tub bath or soaking. Use incentive spirometer at home as directed. No Smoking Skin/Wound Care: May remove bandages in am. You need to leave the Dermabond on incision it will fall off on it's own. Symptoms to Report: Appetite Changes, Extremity Discoloration, Numbness/Tingling, Swelling Increased, Bleeding Excessive, Eyesight Changes, Pain Increased, Urine Color Change, Constipation(Persistent), Fever over 101 degree F, Pain/Pressure in chest, Urinating Difficulty, Cough Up/Vomit Blood, Heart Beat Irreg/Pounding, Pain/Pressure in jaw, Cramps in feet or legs, Lightheadedness, Pain/Pressure in shoulder, Diarrhea(Persistent), Memory Changes Suddenly, Questions/Concerns, Weight gain consecutive days, Dizziness/Fainting, Nausea/Vomiting, Shortness of Breath, Weight gain over 2 pounds If questions or concerns contact your physician Or seek help at emergency department. Activity Activity as Tolerated: Yes Activity Instructions: Avoid Stress to Incision Driving Instructions: No Driving/Refer to Dr. Cochran Discharge Diet: No Restrictions Diet After 24 Hours: Clear Liquid if Nauseous If Any Problems/Questions/Issu: Contact Your Physician, Go to Emergency Room Skin/Wound Care Infection Signs and Symptoms: Increased Redness, Foul Odor of Wound, Increased Drainage, Skin Itchy or Has a Rash, Increased Swelling, Temperature Above 101 F Bathing Instructions: Shower Stitches/[place]/Dermabond Dis: NORBERT Galindo DO Jan 04, 2023 12:25
--- NOTE | 2023-01-04 14:34 | Anesthesia-General Post-Op ---
General Patient Condition Mental Status/LOC: Same as Preop Cardiovascular: Satisfactory Nausea/Vomiting: Absent Respiratory: Satisfactory Pain: Controlled Complications: Absent Post Op Complications Complications None Follow Up Care/Instructions Patient Instructions None needed. Anesthesia/Patient Condition Patient Condition Patient was doing well this morning after the procedure with no complaints, stable vital signs, no apparent adverse anesthesia problems. No complications reported per nursing. YUVAL MICHEL DO Jan 04, 2023 14:34
--- NOTE | 2023-01-04 19:41 | OPERATIVE REPORT ---
DATE OF SERVICE: 01/04/2023 PREOPERATIVE DIAGNOSIS: Left neck basal cell cancer. POSTOPERATIVE DIAGNOSIS: Left neck basal cell cancer. PROCEDURE: Excision of left neck basal cell cancer approximately 4.8 cm long x 1.3 cm wide. SURGEON: Dr. Clement. TEXTILE PIN WORKER: None. ANESTHESIA: LMA. SPECIMENS: Left neck basal cell cancer. BLOOD LOSS: Scant. FLUIDS: Per anesthesia. INDICATIONS FOR PROCEDURE: The patient is a 52-year-old female who has a left neck basal cell cancer. Attempted shave biopsy did not work. She wanted it completely removed. FINDINGS: The patient had this area removed and sent to pathology, marked with a long stitch lateral, and a short stitch superior. PROCEDURE NOTE: After informed consent was obtained, the patient was brought to the operating room, placed table in supine position. She was sterilely prepped and draped in normal fashion. Local lidocaine used to infiltrate the skin around this basal cell cancer. Had drawn an elliptical incision and then infiltrated under this and then made an incision with #15 blade along this elliptical incision going outside the mass, going down through the skin into the subcutaneous tissue, then deepened down to subcutaneous tissue with Bovie electrocautery, taking this mass off en bloc, suturing once at the superior edge of the small stitch and then a long stitch laterally, passes off the table and sent to pathology. Hemostasis obtained using Bovie electrocautery and then elected to close the incision with 4-0 undyed Monocryl 5 interrupted subcuticular stitches. Area was cleaned and dried. Dermabond placed as well as a pressure dressing. The patient tolerated the procedure. Sponge and needle count correct at the case. Job ID: [id number] DocumentID: [id number] Dictated Date: 01/04/2023 15:17:14 Data Management Specialist Date: 01/04/2023 19:39:00 Dictated By: NORBERT CLEMENT DO
== END 2023-01-04 11:10 | disposition home or self-care (01) ==
LOC: SDC 06:50
PROVIDERS: ATTEND Surgery
DX: C44.41 Basal cell carcinoma of skin of scalp and neck (principal); K21.9 Gastro-esophageal reflux disease without esophagitis; Z79.899 Other long term (current) drug therapy; Z87.891 Personal history of nicotine dependence
CPT/HCPCS: 84703; 87081